=== PATIENT | female | born 1940 | race Caucasian/White ===

== ENCOUNTER 2020-01-10 10:16 | Outpatient (CLI) | payer MEDICARE, SELFPAY ==
[2020-01-10 10:30] LABS: Basophils Absolute Auto 0.02 K/mm3 (0.00-0.10); Basophils Percent Auto 0.5 % (0.0-1.0); Eosinophils Absolute Auto 0.16 K/mm3 (0.02-0.50); Hematocrit 38.7 % (35.0-42.0); Hemoglobin 12.8 g/dL (11.7-13.8); Immature Granulocyte Absolute 0.01 K/mm3 (0.00-0.00); Immature Granulocyte Percent A 0.3 % (0.0-0.0); Lymphocytes Absolute Auto 1.36 K/mm3 (1.10-4.50); Lymphocytes Percent Auto 34.3 % (18.0-42.0); Mean Corpuscular HGB Conc 33.1 g/dL (32.0-36.0); Mean Corpuscular Hemoglobin 32.4 pg (27.0-31.0); Mean Platelet Volume 10.5 fl (9.2-11.8); Monocytes Absolute Auto 0.29 K/mm3 (0.10-0.90); Monocytes Percent Auto 7.3 % (2.0-11.0); Neutrophils Absolute Auto 2.1 K/mm3 (1.7-7.2); Neutrophils Percent Auto 53.6 % (50.0-70.0); Platelet Count Result 102 K/mm3 (150-420); Red Blood Count 3.95 M/mm3 (4.20-5.40); Red Cell Distribution Width 13.2 % (11.6-14.4)
[2020-01-10 10:42] LABS: Creatinine Urine 44.82 mg/dL (40-278)
[2020-01-10 10:48] LABS: INR 1.1; Prothrombin Time 11.5 Seconds (9.64-11.0)
[2020-01-10 10:50] LABS: Appearance Urine Clear (Clear); Color Urine Yellow (Yellow); Protein Urine Negative (Negative)
[2020-01-10 10:51] LABS: Add Urine Microscopic? NO; Bilirubin Urine Negative (Negative); Blood Urine Negative (Negative); Glucose Urine UA Negative (Negative); Ketones Urine Negative (Negative); Leukocyte Esterase Ur Negative (Negative); MALB Creatinine Ratio 2.9 mg/g (0-30); Microalbumin Urine Random < 1.3 mg/L; Nitrate Urine Negative (Negative); Urobilinogen Urine 0.2 mg/dL (0.2-1.0)
[2020-01-10 10:52] LABS: Hemoglobin A1C 5.9 % (<5.7)
[2020-01-10 11:34] LABS: Anion Gap 10.3 mmol/L (7-16); Blood Urea Nitrogen 12 mg/dL (7-18); Carbon Dioxide 31 mmol/L (21-32); Chloride 105 mmol/L (98-108); Estimated Glomerular Filt Rate 57; Glucose 92 mg/dL (70-99); Osmolality Calculated 293 mOsm/kg (285-295); Potassium 4.3 mmol/L (3.5-5.1); Sodium 142 mmol/L (136-145)
[2020-01-10 11:35] LABS: Alanine Aminotransferase 29 U/L (14-59); Albumin Level 3.3 g/dL (3.4-5.0); Aspartate Amino Transferase 37 U/L (15-37); CRP < 0.2 mg/dL (0.0-0.9); Calcium 8.8 mg/dL (8.5-10.1); Creatine Kinase 37 U/L (26-192); Total Protein 6.8 g/dL (6.4-8.2)
[2020-01-10 11:36] LABS: Alkaline Phosphatase 79 U/L (46-116)
[2020-01-10 11:51] LABS: Erythrocyte Sedimentation Rate 38 mm/hr (0-20)
[2020-01-10 12:09] LABS: Cholesterol 179 mg/dL (0-200); HDL Direct 57 mg/dL (40-60); LDL Cholesterol Calculated 96 mg/dL (<130); Triglycerides 130 mg/dL (0-150)
== END 2020-01-10 10:17 | disposition home or self-care (01) ==
PROVIDERS: PCP Internal Medicine; Visit Provider Internal Medicine
DX: E78.2 Mixed hyperlipidemia (principal); E11.9 Type 2 diabetes mellitus without complications; I10 Essential (primary) hypertension; K74.5 Biliary cirrhosis, unspecified; M35.3 Polymyalgia rheumatica
CPT/HCPCS: 36415; 80053; 80061; 81003; 82043; 82550; 83036; 85025; 85610; 85652; 86140

== ENCOUNTER 2020-04-06 12:40 | Outpatient (CLI) | payer MEDICARE, SELFPAY ==
--- NOTE | ~2020-04-06 | MR_ITS ---
EXAMINATION: MR abdomen wo/w con INDICATION: Liver cirrhosis TECHNIQUE: Coronal SSFSE ARC, WATER:coronal LAVA-FLEX, Coronal 2D FIESTA FatSat, Axial SSFSE BH ARC, Axial 3D DualEcho BH, Axial SSFSE-IR, Axial DWI b=500, Axial 2D FIESTA FatSat, pre and dynamic postco ntrast Axial LAVA ARC, postcontrast Coronal In and Opposed phase LAVA FLEX COMPARISON: 02/10/2016 CONTRAST: Multihance, 17 cc FINDINGS: The liver surface is nodular. There are innumerable regenerative nodules throughout the keturah er. No suspicious liver mass is identified. The spleen, pancreas, and adrenal glands are normal. The gallbladder is surgically absent. The kidneys are unremarkable. Is chronic mild periportal lymphadeno martín is likely reactive. There are no dilated loops of bowel. No ascites is present. IMPRESSION: 1. Cirrhosis. Reviewed, dictated and finalized at location A. IMPRESSION: 1. Cirrhosis.
[2020-04-06 13:26] LABS: Estimated Glomerular Filt Rate 60
== END 2020-04-06 12:41 | disposition home or self-care (01) ==
PROVIDERS: PCP Internal Medicine; Visit Provider Internal Medicine
DX: K74.60 Unspecified cirrhosis of liver (principal)
CPT/HCPCS: 74183; A9577

== ENCOUNTER 2020-06-17 16:24 | Outpatient (CLI) | payer MEDICARE, SELFPAY ==
--- NOTE | ~2020-06-17 | XR_ITS ---
EXAMINATION: XR lumbar spine 2-3V EXAM DATE: 06/17/2020 16:55 INDICATION: Lower back pain, h/o hepatocellular cancer. TECHNIQUE: Lumber spine frontal, lateral, lateral L5-S1 projections for interpretation. Comparison is made to prior examination from 05/16/2016. Correlation was made with CT abdomen pelvis 02/19/2018. FINDINGS: Moderate to severe loss of the L5-S1 disc height, moderate at L4-5 and mild to moderate at the other lumbar levels. Moderate lumbar facet arthropathy. Mild aortic arterial sclerosis. Upper ab dominal surgical clips. Sacrum, sacroiliac joints, sacral arcuate lines are intact. The vertebral bod ies are aligned in the AP dimension. There are no osteoblastic or osteolytic lesions identified. IMPRESSION: 1. Moderate to severe lumbar spondylosis. Reviewed, dictated and finalized at location A. STMENT BANKING MANAGER
--- NOTE | ~2020-06-17 | XR_ITS ---
EXAMINATION: XR hip RT min 2V EXAM DATE: 06/17/2020 16:55 INDICATION: Right hip pain. History of hepatocellular cancer. TECHNIQUE: Right hip frontal, 'frog leg' projections for interpretation. Correlation is made to pelvi c x-ray 10/22/2008. FINDINGS: Smooth right hip femoral head contour, no radiographic evidence of avascular necrosis. The re is moderate right hip primary osteoarthritis. Some pelvic or inguinal surgical clips. There are no acute fractures or dislocations identified. There is no subcutaneous gas. The soft tissue is unrem arkable. IMPRESSION: Moderate right hip osteoarthritis. Reviewed, dictated and finalized at location A. IC SEPARATOR OPERATOR
== END 2020-06-17 16:25 | disposition home or self-care (01) ==
LOC: CHSLAB 16:26
PROVIDERS: PCP Internal Medicine; Visit Provider Internal Medicine
DX: M54.5 Low back pain (principal); M25.551 Pain in right hip
CPT/HCPCS: 72100; 73502

== ENCOUNTER 2020-06-24 08:24 | Outpatient (CLI) | payer MEDICARE, SELFPAY ==
--- NOTE | ~2020-06-24 | MR_ITS ---
EXAMINATION: MR lumbar spine wo con EXAM DATE: 06/24/2020 10:12 INDICATION: Pain in R hip and lower back . TECHNIQUE: Multi-sequential, multiplanar MR images of the lumbar spine were obtained without contrast . Sagittal T1, T2, T2 fat saturation images. Axial T2 weighted images. Comparison is made to prior examination from 10/21/2015. FINDINGS: There is moderate disc disease L4-S1, mild to moderate at L2-L4. There is 5 mm retrolisthes is L5 on S1. The vertebral bodies are otherwise aligned. The conus medullaris terminates at the L1/2 level and has normal signal intensity and morphology. Mild acute or subacute compression fracture in ferior endplate of L2. Paraspinal soft tissue is unremarkable. Level by level evaluation: T12-L1: Disc does not extend beyond the endplate margin. Facet arthropathy: Mild. Neural foraminal stenosis: No stenosis. Central canal stenosis: No stenosis. L1-L2: There is a mild diffuse disc bulge. Facet arthropathy: Mild. Neural foraminal stenosis: No stenosis. Central canal stenosis: No stenosis. L2-L3: There is a mild to moderate diffuse disc bulge. Facet arthropathy: Mild to moderate. Neural foraminal stenosis: No stenosis. Central canal stenosis: Mild to moderate. L3-L4: There is a mild to moderate diffuse disc bulge. Facet arthropathy: Mild to moderate. Neural foraminal stenosis: Mild left. Central canal stenosis: Mild to moderate. L4-L5: There is a mild to moderate diffuse disc bulge. Facet arthropathy: Moderate. Neural foraminal stenosis: Mild to moderate left, mild right. Central canal stenosis: Moderate. L5-S1: There is a mild to moderate diffuse disc bulge. Facet arthropathy: Moderate. Neural foraminal stenosis: Moderate left, mild to moderate right. Central canal stenosis: Moderate. L2 compression fracture is new compared to prior study. There has been mild overall interval progress ion in spondylosis. IMPRESSION: 1. Moderate lower lumbar spondylosis. 2. Acute or subacute L2 mild compression fracture. Reviewed, dictated and finalized at location B. CTOR PRODUCT SAFETY
--- NOTE | ~2020-06-24 | MR_ITS ---
EXAMINATION: MR hip RT wo con DATE: 06/24/2020 10:11 INDICATION: Right hip pain. TECHNIQUE: Magnetic resonance imaging (MRI) of the right hip was performed without intravenous contra st. Sequences included axial and coronal PD-weighted FS FSE and axial T1-weighted FSE of the pelvis. Sequences of the hip included 2D FIESTA, T1-weighted fast GRE, and axial, coronal, and sagittal PD-we ighted FS FSE. COMPARISON: Right hip radiographs 06/17/2020 FINDINGS: Bones/cartilage: There is thoracolumbar levocurvature. There is severe lower lumbar spondylosis. No fracture. There is mild osteoarthritis of the hips. Labrum: There is a tear of the right acetabular labrum. Fluid: There is no hip joint effusion. There is mild right-sided trochanteric bursitis. Soft tissues: There is mild tendinopathy of the hamstring origins. The iliopsoas tendons are normal. The gluteus me dius and gluteus minimus tendons are normal bilaterally. There is mild focal edema of right adductor brevis and adductor longus muscles. IMPRESSION: 1. Mild osteoarthritis of the hips. 2. Mild focal edema of right adductor brevis and adductor longus muscles, consistent with mild strain s (grade 1). Reviewed, dictated and finalized at location A. ILE PRODUCTS PROCESSOR IMPRESSION: 1. Mild osteoarthritis of the hips. 2. Mild focal edema of right adductor brevis and adductor longus muscles, consi stent with mild strains (grade 1).
== END 2020-06-24 08:25 | disposition home or self-care (01) ==
LOC: CHSIMG 08:26
PROVIDERS: PCP Internal Medicine; Visit Provider Internal Medicine
DX: M54.5 Low back pain (principal); M25.551 Pain in right hip
CPT/HCPCS: 72148; 73721

== ENCOUNTER 2020-08-03 09:55 | Outpatient (CLI) | payer MEDICARE, SELFPAY ==
[2020-08-03 10:11] LABS: Hematocrit 37.8 % (35.0-42.0); Hemoglobin 12.6 g/dL (11.7-13.8); Mean Corpuscular HGB Conc 33.3 g/dL (32.0-36.0); Mean Corpuscular Hemoglobin 32.8 pg (27.0-31.0); Mean Corpuscular Volume 98.4 fL (78.0-102.0); Mean Platelet Volume 11.2 fl (9.2-11.8); Platelet Count Result 102 K/mm3 (150-420); Red Blood Count 3.84 M/mm3 (4.20-5.40); Red Cell Distribution Width 13.3 % (11.6-14.4); White Blood Count 3.6 K/mm3 (4.8-10.8)
[2020-08-03 10:12] LABS: Appearance Urine Sl Cloudy (Clear); Bilirubin Urine Negative (Negative); Color Urine Yellow (Yellow); Glucose Urine UA Negative (Negative); Ketones Urine Negative (Negative); Leukocyte Esterase Ur 2+ (Negative); Nitrate Urine Negative (Negative); Protein Urine Negative (Negative); Specific Grav Ur >= 1.030 (1.010-1.020); Urobilinogen Urine 0.2 mg/dL (0.2-1.0); pH Urine 5.5 (5.0-8.0)
[2020-08-03 10:21] LABS: Alanine Aminotransferase 22 U/L (14-59); Albumin Level 3.4 g/dL (3.4-5.0); Alkaline Phosphatase 84 U/L (46-116); Ammonia 17 umol/L (11-32); Anion Gap 6 mmol/L (8-16); Aspartate Amino Transferase 26 U/L (15-37); Bilirubin,Total 0.7 mg/dL (0.00-1.00); Blood Urea Nitrogen 13 mg/dL (7-18); CRP < 0.5 mg/dL (0.0-0.9); Calcium 9.1 mg/dL (8.5-10.1); Carbon Dioxide 32 mmol/L (21-32); Chloride 105 mmol/L (98-108); Cholesterol 169 mg/dL (0-200); Creatine Kinase 37 U/L (26-192); Estimated Glomerular Filt Rate 58; Glucose 100 mg/dL (70-99); HDL Direct 53 mg/dL (40-60); LDL Cholesterol Calculated 86 mg/dL (<130); Osmolality Calculated 296 mOsm/kg (285-295); Potassium 4.8 mmol/L (3.5-5.1); Sodium 143 mmol/L (136-145); Total Protein 7.2 g/dL (6.4-8.2); Triglycerides 152 mg/dL (0-150)
[2020-08-03 10:25] LABS: Hemoglobin A1C 5.3 % (<5.7)
[2020-08-03 10:34] LABS: INR 1.1; Partial Thromboplastin Time 27.9 SEC (23.90-30.70); Prothrombin Time 11.5 Seconds (9.50-12.10)
[2020-08-03 10:59] LABS: Add Urine Microscopic? YES; Blood Urine Trace-Intact (Negative)
[2020-08-03 11:00] LABS: Bacteria Urine 2+ /hpf; RBC Urine 0-2 /hpf (0-2); Squamous Epithelial Cell Urine Rare /hpf (Few); WBC Urine 31-50 /hpf (0-3)
[2020-08-03 11:12] LABS: Erythrocyte Sedimentation Rate 37 mm/hr (0-20)
[2020-08-03 11:23] LABS: Band Neutrophils Percent 0 % (0-6); Eosinophils Absolute Manual 0.18 K/mm3 (0.02-0.5); Eosinophils Percent Manual 5 % (1-6); Lymphocytes Percent Manual 28 % (18-44); Monocytes Absolute Manual 0.25 K/mm3 (0.1-0.90); Monocytes Percent Manual 7 % (3-9); Neutrophils Absolute Manual 2.16 K/mm3 (1.7-7.2); Neutrophils Percent Manual 60 % (46-73); Total Cells Counted 100
[2020-08-07 17:12] LABS: Alpha Fetoprotein Tumor Marker 3.4 ng/mL (<6.1)
== END 2020-08-03 09:56 | disposition home or self-care (01) ==
LOC: CHSLAB 09:57
PROVIDERS: PCP Internal Medicine; Visit Provider Internal Medicine
DX: C22.0 Liver cell carcinoma (principal); E78.2 Mixed hyperlipidemia; I10 Essential (primary) hypertension; K74.5 Biliary cirrhosis, unspecified; E11.9 Type 2 diabetes mellitus without complications
CPT/HCPCS: 36415; 80053; 80061; 81001; 82105; 82140; 82550; 83036; 85025; 85610; 85652; 85730; 86140

== ENCOUNTER 2020-11-16 10:09 | Outpatient (CLI) | payer MEDICARE, SELFPAY ==
[2020-11-16 10:32] LABS: Hematocrit 36.9 % (35.0-42.0); Hemoglobin 12.1 g/dL (11.7-13.8); Immature Platelet Fraction Pct 4.3 % (1.0-7.0); Mean Corpuscular HGB Conc 32.8 g/dL (32.0-36.0); Mean Corpuscular Hemoglobin 31.8 pg (27.0-31.0); Mean Corpuscular Volume 96.9 fL (78.0-102.0); Mean Platelet Volume 11.4 fl (9.2-11.8); Platelet Count Result 85 K/mm3 (150-420); Red Blood Count 3.81 M/mm3 (4.20-5.40); Red Cell Distribution Width 13.4 % (11.6-14.4); White Blood Count 3.6 K/mm3 (4.8-10.8)
[2020-11-16 11:10] LABS: Hemoglobin A1C 5.9 % (<5.7)
[2020-11-16 11:23] LABS: Alanine Aminotransferase 28 U/L (14-59); Albumin Level 3.2 g/dL (3.4-5.0); Alkaline Phosphatase 86 U/L (46-116); Anion Gap 5 mmol/L (8-16); Aspartate Amino Transferase 30 U/L (15-37); Bilirubin,Total 0.8 mg/dL (0.00-1.00); Blood Urea Nitrogen 17 mg/dL (7-18); Carbon Dioxide 32 mmol/L (21-32); Chloride 104 mmol/L (98-108); Estimated Glomerular Filt Rate 56; Glucose 97 mg/dL (70-99); Osmolality Calculated 293 mOsm/kg (285-295); Potassium 4.9 mmol/L (3.5-5.1); Sodium 141 mmol/L (136-145); Total Protein 6.7 g/dL (6.4-8.2)
[2020-11-16 14:06] LABS: Band Neutrophils Percent 0 % (0-6); Eosinophils Absolute Manual 0.03 K/mm3 (0.02-0.5); Eosinophils Percent Manual 1 % (1-6); Lymphocytes Absolute Manual 0.97 K/mm3 (1.1-4.5); Lymphocytes Percent Manual 27 % (18-44); Monocytes Absolute Manual 0.39 K/mm3 (0.1-0.90); Monocytes Percent Manual 11 % (3-9); Neutrophils Absolute Manual 2.19 K/mm3 (1.7-7.2); Neutrophils Percent Manual 61 % (46-73); Total Cells Counted 100
[2020-11-16 14:07] LABS: Platelet Estimate Adequate (Adequate)
== END 2020-11-16 10:10 | disposition home or self-care (01) ==
LOC: CHSLAB 10:11
PROVIDERS: PCP Internal Medicine; Visit Provider Internal Medicine
DX: E11.9 Type 2 diabetes mellitus without complications (principal); C22.0 Liver cell carcinoma
CPT/HCPCS: 36415; 80053; 83036; 85025; 85055

== ENCOUNTER 2021-01-11 13:52 | Outpatient (CLI) | payer MEDICARE, SELFPAY ==
--- NOTE | ~2021-01-11 | MM_ITS ---
EXAMINATION: MM screening ayush BI w hilton HISTORY: Screening mammogram TECHNIQUE: Craniocaudal and mediolateral oblique 3-D tomosynthesis images were obtained and synthetic 2-D images were generated. CAD analysis was submitted and interpreted. COMPARISON: 05/16/2016, 11/08/2012 BREAST PARENCHYMAL COMPOSITION: The breasts are almost entirely fatty. FINDINGS: Scattered benign-appearing calcifications are present. There is no evidence of suspicious m ass, calcification, or architectural distortion to suggest malignancy in either breast. There has bee n no suspicious interval change. IMPRESSION: 1. No mammographic evidence of malignancy. 2. Recommend routine screening mammography while the patient remains in good health. BI-RADS Category 2: Benign finding(s). Reviewed, dictated and finalized at location A. IMPRESSION: 1. No mammographic evidence of malignancy. 2. Recommend routine screening mammography while the patient remains in good he alth. BI-RADS Category 2: Benign finding(s).
== END 2021-01-11 13:53 | disposition home or self-care (01) ==
LOC: CHSIMG 13:54
PROVIDERS: PCP Internal Medicine; Visit Provider Internal Medicine
DX: Z12.31 Encounter for screening mammogram for malignant neoplasm of breast (principal)
CPT/HCPCS: 77063; 77067

== ENCOUNTER 2021-02-08 13:56 | Outpatient (CLI) | payer MEDICARE, SELFPAY ==
--- NOTE | ~2021-02-08 | XR_ITS ---
EXAMINATION: XR foot LT min 3V, XR foot RT min 3V DATE: 02/08/2021 14:23 INDICATION: Bilateral foot pain and swelling TECHNIQUE: 1. Weight bearing dorsal plantar, oblique and lateral views of the left foot were obtained. 2. Weight bearing dorsal plantar, oblique and lateral views of the right foot were obtained. COMPARISON: None. FINDINGS: Bilateral pes planus with flattening of the longitudinal arches at both feet. There are also hammerto e deformities at the left third and right second and third toes. No fractures. Polyarticular osteoart hritis, moderate to severe at the right first metatarsophalangeal and bilateral naviculocuneiform mandie nts. Mild osteoarthritis at several of the bilateral tarsometatarsal and interphalangeal joints. Prom inent bilateral Achilles and plantar calcaneal spurs. There is a thin wire-like density measuring marcin roximately 4-5 mm in length which on the dorsal plantar view of the left foot projects over the dista l diaphysis of the third metatarsal and which moves laterally on the oblique view which be consistent with location in the plantar soft tissues. No correlate is however identified in this region on the lateral image suggesting this may be an artifact external to the patient. IMPRESSION: 1. Bilateral pes planus with flattening of the longitudinal arches. 2. Moderate to severe osteoarthritis at the right first metatarsophalangeal and at the bilateral jeevan culocuneiform articulations. 3. Thin wire-like density project over the forefoot on the dorsal plantar and oblique images without evident correlate on the lateral image suggesting this may be artifactual as opposed to a foreign bod y. Reviewed, dictated and finalized at location A. IMPRESSION: 1. Bilateral pes planus with flattening of the longitudinal arches. 2. Moderate to severe osteoarthritis at the right first metatarsophalangeal and at the bilateral naviculocuneiform articulations. 3. Thin wire-like density project over the forefoot on the dorsal plantar and o blique images without evident correlate on the lateral image suggesting this ma y be artifactual as opposed to a foreign body.
== END 2021-02-08 13:57 | disposition home or self-care (01) ==
LOC: CHSIMG 13:58
PROVIDERS: PCP Internal Medicine; Visit Provider Podiatrist
DX: M79.672 Pain in left foot (principal); M79.671 Pain in right foot; M79.89 Other specified soft tissue disorders
CPT/HCPCS: 73630

== ENCOUNTER 2021-02-15 10:47 | Outpatient (CLI) | payer MEDICARE, SELFPAY ==
[2021-02-15 11:15] LABS: Basophils Absolute Auto 0.02 K/mm3 (0.00-0.10); Basophils Percent Auto 0.5 % (0.0-1.0); Eosinophils Absolute Auto 0.08 K/mm3 (0.02-0.50); Hematocrit 38.9 % (35.0-42.0); Hemoglobin 12.7 g/dL (11.7-13.8); Immature Granulocyte Absolute 0.01 K/mm3 (0.00-0.00); Immature Granulocyte Percent A 0.3 % (0.0-0.0); Lymphocytes Absolute Auto 0.98 K/mm3 (1.10-4.50); Lymphocytes Percent Auto 24.6 % (18.0-42.0); Mean Corpuscular HGB Conc 32.6 g/dL (32.0-36.0); Mean Corpuscular Hemoglobin 31.7 pg (27.0-31.0); Mean Platelet Volume 11.1 fl (9.2-11.8); Monocytes Absolute Auto 0.38 K/mm3 (0.10-0.90); Monocytes Percent Auto 9.5 % (2.0-11.0); Neutrophils Absolute Auto 2.5 K/mm3 (1.7-7.2); Neutrophils Percent Auto 63.1 % (50.0-70.0); Platelet Count Result 93 K/mm3 (150-420); Red Blood Count 4.01 M/mm3 (4.20-5.40); Red Cell Distribution Width 13.8 % (11.6-14.4)
[2021-02-15 11:20] LABS: Add Urine Microscopic? YES; Appearance Urine Clear (Clear); Bilirubin Urine Negative (Negative); Blood Urine Negative (Negative); Color Urine Light Yellow (Yellow); Glucose Urine UA Negative (Negative); Ketones Urine Negative (Negative); Leukocyte Esterase Ur Trace (Negative); Nitrate Urine Negative (Negative); Protein Urine Negative (Negative); Urobilinogen Urine 0.2 mg/dL (0.2-1.0); pH Urine 5.5 (5.0-8.0)
[2021-02-15 11:25] LABS: Bacteria Urine Trace /hpf; RBC Urine 0-2 /hpf (0-2); Squamous Epithelial Cell Urine Few /hpf (Few)
[2021-02-15 11:59] LABS: Alanine Aminotransferase 29 U/L (14-59); Albumin Level 3.5 g/dL (3.4-5.0); Alkaline Phosphatase 84 U/L (46-116); Anion Gap 8 mmol/L (8-16); Aspartate Amino Transferase 33 U/L (15-37); Bilirubin,Total 0.8 mg/dL (0.00-1.00); Blood Urea Nitrogen 15 mg/dL (7-18); Calcium 8.8 mg/dL (8.5-10.1); Carbon Dioxide 30 mmol/L (21-32); Chloride 106 mmol/L (98-108); Cholesterol 179 mg/dL (0-200); Estimated Glomerular Filt Rate 56; Glucose 88 mg/dL (70-99); HDL Direct 58 mg/dL (40-60); LDL Cholesterol Calculated 100 mg/dL (<130); Osmolality Calculated 297 mOsm/kg (285-295); Potassium 4.3 mmol/L (3.5-5.1); Sodium 144 mmol/L (136-145); Total Protein 7.2 g/dL (6.4-8.2); Triglycerides 104 mg/dL (0-150)
[2021-02-15 12:19] LABS: CRP < 0.2 mg/dL (0.0-0.9)
[2021-02-15 13:05] LABS: Erythrocyte Sedimentation Rate 29 mm/hr (0-20)
[2021-02-17 14:21] LABS: Hemoglobin A1C 5.8 % (<5.7)
== END 2021-02-15 10:48 | disposition home or self-care (01) ==
LOC: CHSLAB 10:49
PROVIDERS: PCP Internal Medicine; Visit Provider Internal Medicine
DX: K74.5 Biliary cirrhosis, unspecified (principal); I10 Essential (primary) hypertension; E11.9 Type 2 diabetes mellitus without complications; E78.2 Mixed hyperlipidemia; C22.0 Liver cell carcinoma; M35.3 Polymyalgia rheumatica
CPT/HCPCS: 36415; 80053; 80061; 81001; 82105; 83036; 85025; 85652; 86140

== ENCOUNTER 2021-03-31 12:03 | Outpatient (CLI) | payer MEDICARE, SELFPAY ==
--- NOTE | ~2021-03-31 | XR_ITS ---
XR chest 2V DATE: 03/31/2021 12:40 INDICATION: Midsternal chest pain for one month TECHNIQUE: 2 views COMPARISON: 06/27/2017 PA and lateral chest FINDINGS: Normal heart size. Aortic arch calcification and mild aortic unfolding. No hilar or mediast inal enlargement. No pulmonary infiltrate or consolidation, pleural effusion or pulmonary vascular congestion or pneumo thorax. Diffuse osteopenia. There is degenerative spurring in the lower thoracic spine primarily. Numerous surgical clips overlie the left upper quadrant of the abdomen. IMPRESSION: No active cardiopulmonary disease or significant change since 06/27/2017 Reviewed, dictated and finalized at location B.
--- NOTE | ~2021-03-31 | US_ITS ---
EXAMINATION: US carotid duplex BI EXAM DATE: 03/31/2021 12:34 INDICATION: Carotid bruit. TECHNIQUE: Grayscale, color and pulsed Doppler images of the cervical carotid arteries were obtained . The degree of vessel stenosis is placed in one of the following categories: normal, <50% stenosis, 50-69% stenosis, >=70% stenosis but less than near-occlusion, near-occlusion, or occlusion. Note that percent stenosis relative to normal distal artery lumen diameter is indirectly measured from velocit y measurements as described by Sascha, et al. Radiology 2003; [id number]:[id number]. Comparison is made to prior examination from 06/28/2017. FINDINGS: RIGHT SIDE: Right common carotid artery peak systolic velocity (PSV in cm/s): 87 Right bulb/internal carotid artery peak systolic velocity (PSV in cm/s): 85 Right internal carotid artery end diastolic velocity (EDV in cm/s): 14 Right ICA/CCA peak systolic ratio: 1.0 Right external carotid artery peak systolic velocity (PSV in cm/s): 87 Right vertebral artery antegrade flow: yes There is minimal carotid bulb plaque. Velocity and Doppler waveforms in the common and internal carotid arteries is normal. LEFT SIDE: Left common carotid artery peak systolic velocity (PSV in cm/s): 95 Left bulb/internal carotid artery peak systolic velocity (PSV in cm/s): 103 Left internal carotid artery end diastolic velocity (EDV in cm/s): 24 Left ICA/CCA peak systolic ratio: 1.1 Left external carotid artery peak systolic velocity (PSV in cm/s): 78 Left vertebral artery antegrade flow: yes There is minimal carotid bulb plaque. Velocity and Doppler waveforms in the common and internal carotid arteries is normal. IMPRESSION: 1. Less than 50 percent stenosis in the right internal carotid artery. 2. Less than 50 percent stenosis in the left internal carotid artery. > Reviewed, dictated and finalized at location A.
== END 2021-03-31 12:04 | disposition home or self-care (01) ==
LOC: CHSIMG 12:05
PROVIDERS: PCP Internal Medicine; Visit Provider Internal Medicine
DX: R07.9 Chest pain, unspecified (principal); R09.89 Other specified symptoms and signs involving the circulatory and respiratory systems
CPT/HCPCS: 71046; 93880

== ENCOUNTER 2021-04-07 08:47 | Outpatient (CLI) | payer MEDICARE, SELFPAY ==
--- NOTE | ~2021-04-07 | MR_ITS ---
EXAMINATION: MR abdomen wo con DATE: 04/07/2021 11:42 INDICATION: Biliary cirrhosis. TECHNIQUE: Magnetic resonance imaging (MRI) of the abdomen was performed without intravenous contrast . Sequences included coronal T2-weighted SS-FSE, coronal FS 2D-FIESTA, axial T2-weighted FS SS-FSE, axial T1-weighted FSPGR, axial diffusion-weighted SE, and axial and coronal WATER 3D LAVA. COMPARISON: 04/06/2020 FINDINGS: Heart size is normal. No pericardial or pleural effusion. Postoperative changes at the proximal stoma ch consistent with prior Subhash fundoplication Diffuse heterogeneous signal intensity of the liver wh ich demonstrates a diffuse nodular surface contour consistent with cirrhosis. Borderline splenomegaly measuring 13.2 cm in maximal length. Gallbladder is not visualized and likely surgically absent. Cho lecystectomy clips with magnetic santana artifact at the gallbladder fossa. Pancreas, bilateral adrena l glands and kidneys are normal. Visualized portions of the bowels are unremarkable. No pathologicall y enlarged abdominal lymphadenopathy. No ascites. Mild thoracolumbar levocurvature and lumbar dextroc urvature with moderate spondylosis. Normal bone marrow signal throughout. IMPRESSION: 1. Cirrhotic liver with borderline splenomegaly suggesting some degree of secondary portal venous hyp ertension. Reviewed, dictated and finalized at location B. IMPRESSION: 1. Cirrhotic liver with borderline splenomegaly suggesting some degree of secon amadou portal venous hypertension.
== END 2021-04-07 08:48 | disposition home or self-care (01) ==
LOC: CHSIMG 08:48
PROVIDERS: PCP Internal Medicine; Visit Provider Internal Medicine
DX: K74.5 Biliary cirrhosis, unspecified (principal)
CPT/HCPCS: 74181

== ENCOUNTER 2021-05-24 10:29 | Outpatient (CLI) | payer MEDICARE, SELFPAY ==
[2021-05-24 10:47] LABS: Basophils Absolute Auto 0.02 K/mm3 (0.00-0.10); Basophils Percent Auto 0.5 % (0.0-1.0); Eosinophils Absolute Auto 0.07 K/mm3 (0.02-0.50); Eosinophils Percent Auto 1.7 % (1.0-6.0); Hematocrit 39.3 % (35.0-42.0); Hemoglobin 12.5 g/dL (11.7-13.8); Immature Granulocyte Absolute 0.01 K/mm3 (0.00-0.00); Immature Granulocyte Percent A 0.2 % (0.0-0.0); Immature Platelet Fraction Pct 4.2 % (1.0-7.0); Lymphocytes Absolute Auto 0.99 K/mm3 (1.10-4.50); Lymphocytes Percent Auto 23.6 % (18.0-42.0); Mean Corpuscular HGB Conc 31.8 g/dL (32.0-36.0); Mean Corpuscular Hemoglobin 30.9 pg (27.0-31.0); Mean Platelet Volume 11.3 fl (9.2-11.8); Monocytes Absolute Auto 0.43 K/mm3 (0.10-0.90); Monocytes Percent Auto 10.2 % (2.0-11.0); Neutrophils Absolute Auto 2.7 K/mm3 (1.7-7.2); Neutrophils Percent Auto 63.8 % (50.0-70.0); Platelet Count Result 99 K/mm3 (150-420); Red Blood Count 4.05 M/mm3 (4.20-5.40); Red Cell Distribution Width 13.9 % (11.6-14.4); White Blood Count 4.2 K/mm3 (4.8-10.8)
[2021-05-24 11:27] LABS: Alanine Aminotransferase 29 U/L (14-59); Albumin Level 3.3 g/dL (3.4-5.0); Alkaline Phosphatase 95 U/L (46-116); Anion Gap 8 mmol/L (8-16); Aspartate Amino Transferase 36 U/L (15-37); Bilirubin,Total 0.7 mg/dL (0.00-1.00); Blood Urea Nitrogen 13 mg/dL (7-18); Calcium 8.7 mg/dL (8.5-10.1); Carbon Dioxide 30 mmol/L (21-32); Chloride 105 mmol/L (98-108); Estimated Glomerular Filt Rate > 60; Glucose 105 mg/dL (70-99); Osmolality Calculated 296 mOsm/kg (285-295); Potassium 4.4 mmol/L (3.5-5.1); Sodium 143 mmol/L (136-145); Total Protein 6.9 g/dL (6.4-8.2)
[2021-05-29 00:07] LABS: Alpha Fetoprotein Tumor Marker 2.6 ng/mL (<6.1)
== END 2021-05-24 10:30 | disposition home or self-care (01) ==
LOC: CHSLAB 10:32
PROVIDERS: PCP Internal Medicine; Visit Provider Internal Medicine
DX: E11.610 Type 2 diabetes mellitus with diabetic neuropathic arthropathy (principal); K74.5 Biliary cirrhosis, unspecified; K74.60 Unspecified cirrhosis of liver
CPT/HCPCS: 36415; 80053; 82105; 83036; 85025; 85055

== ENCOUNTER 2021-08-26 09:59 | Outpatient (CLI) | payer MEDICARE, SELFPAY ==
[2021-08-26 10:11] LABS: Appearance Urine Clear (Clear); Bilirubin Urine Negative (Negative); Color Urine Light Yellow (Yellow); Glucose Urine UA Negative (Negative); Ketones Urine Negative (Negative); Leukocyte Esterase Ur Negative (Negative); Nitrate Urine Negative (Negative); Protein Urine Negative (Negative); Urobilinogen Urine 0.2 mg/dL (0.2-1.0); pH Urine 7.5 (5.0-8.0)
[2021-08-26 10:13] LABS: Basophils Absolute Auto 0.02 K/mm3 (0.00-0.10); Basophils Percent Auto 0.5 % (0.0-1.0); Eosinophils Absolute Auto 0.04 K/mm3 (0.02-0.50); Eosinophils Percent Auto 0.9 % (1.0-6.0); Hematocrit 37.9 % (35.0-42.0); Hemoglobin 12.5 g/dL (11.7-13.8); Immature Granulocyte Absolute 0.02 K/mm3 (0.00-0.00); Immature Granulocyte Percent A 0.5 % (0.0-0.0); Immature Platelet Fraction Pct 3.9 % (1.0-7.0); Lymphocytes Absolute Auto 1.01 K/mm3 (1.10-4.50); Lymphocytes Percent Auto 22.9 % (18.0-42.0); Mean Corpuscular Hemoglobin 30.7 pg (27.0-31.0); Mean Corpuscular Volume 93.1 fL (78.0-102.0); Mean Platelet Volume 11.3 fl (9.2-11.8); Monocytes Absolute Auto 0.38 K/mm3 (0.10-0.90); Monocytes Percent Auto 8.6 % (2.0-11.0); Neutrophils Absolute Auto 2.9 K/mm3 (1.7-7.2); Neutrophils Percent Auto 66.6 % (50.0-70.0); Platelet Count Result 104 K/mm3 (150-420); Red Blood Count 4.07 M/mm3 (4.20-5.40); Red Cell Distribution Width 14.2 % (11.6-14.4); White Blood Count 4.4 K/mm3 (4.8-10.8)
[2021-08-26 10:16] LABS: Add Urine Microscopic? YES; Bacteria Urine None seen /hpf; Blood Urine Trace-Intact (Negative); RBC Urine None seen /hpf (0-2); WBC Urine None seen /hpf (0-3)
[2021-08-26 10:20] LABS: MALB Creatinine Ratio 74.7 mg/g (0-30); Microalbumin Urine Random < 13.0 mg/L
[2021-08-26 11:01] LABS: Alanine Aminotransferase 23 U/L (14-59); Albumin Level 3.5 g/dL (3.4-5.0); Alkaline Phosphatase 89 U/L (46-116); Anion Gap 9 mmol/L (8-16); Aspartate Amino Transferase 28 U/L (15-37); Bilirubin,Total 1.2 mg/dL (0.00-1.00); Blood Urea Nitrogen 12 mg/dL (7-18); Calcium 9.1 mg/dL (8.5-10.1); Carbon Dioxide 29 mmol/L (21-32); Chloride 104 mmol/L (98-108); Cholesterol 181 mg/dL (0-200); Creatine Kinase 44 U/L (26-192); Estimated Glomerular Filt Rate 59; Free T4 Free Thyroxine 1.19 ng/dL (0.76-1.46); Glucose 90 mg/dL (70-99); HDL Direct 64 mg/dL (40-60); LDL Cholesterol Calculated 100 mg/dL (<130); Osmolality Calculated 293 mOsm/kg (285-295); Potassium 4.3 mmol/L (3.5-5.1); Sodium 142 mmol/L (136-145); Thyroid Stimulating Hormone 1.54 uIU/mL (0.36-3.74); Total Protein 7.1 g/dL (6.4-8.2); Triglycerides 83 mg/dL (0-150)
[2021-08-26 11:12] LABS: CRP < 0.2 mg/dL (0.0-0.9)
[2021-08-26 11:18] LABS: Erythrocyte Sedimentation Rate 36 mm/hr (0-20)
[2021-09-01 18:12] LABS: Alpha Fetoprotein Tumor Marker 3.2 ng/mL (<6.1)
== END 2021-08-26 10:00 | disposition home or self-care (01) ==
LOC: CHSLAB 10:01
PROVIDERS: PCP Internal Medicine; Visit Provider Internal Medicine
DX: C22.0 Liver cell carcinoma (principal); K74.5 Biliary cirrhosis, unspecified; E79.0 Hyperuricemia without signs of inflammatory arthritis and tophaceous disease; E78.2 Mixed hyperlipidemia; E03.4 Atrophy of thyroid (acquired); M35.3 Polymyalgia rheumatica; E11.610 Type 2 diabetes mellitus with diabetic neuropathic arthropathy
CPT/HCPCS: 36415; 80053; 80061; 81001; 82043; 82105; 82550; 83036; 84439; 84443; 84481; 84550; 85025; 85055; 85652; 86140

== ENCOUNTER 2021-11-06 10:50 | Outpatient (CLI) | payer MEDICARE, SELFPAY ==
--- NOTE | ~2021-11-06 | MR_ITS ---
EXAMINATION: MR knee RT wo con DATE: 11/06/2021 12:25 INDICATION: Right knee pain TECHNIQUE: Magnetic resonance imaging (MRI) of the right knee was performed without intravenous contr ast. Sequences included coronal PD-weighted FSE, coronal PD-weighted FS FSE, sagittal T2-weighted FS E, sagittal PD-weighted FS FSE and axial PD weighted fat saturated FSE. COMPARISON: None. FINDINGS: Medial compartment: The medial meniscal body and posterior horn are small which is new since the prior study. There is li near increased signal consistent with complex tear at the remaining small meniscal body. There is ext ensive full/near full-thickness cartilage loss along the anterior to central weightbearing medial fem oral condyle and medial tibial plateau. There is still some thinned cartilage along the posterior mar gin of the medial tibial plateau and at the posterior weightbearing medial femoral condyle. Moderate size marginal osteophytes are present. Lateral compartment: Longitudinal horizontal tear extending to near the free edge of the body and posterior horn of the la teral meniscus. There is truncation of the normally sharp free edge at the posterior horn of the late ral meniscus with equivocal for small radial tear versus degenerative fraying. Mild partial-thickness cartilage loss with deep chondral fissuring along the anterior weightbearing lateral femoral condyle . Mild chondral surface regularity along the more posterior weightbearing lateral femoral condyle. Sm all marginal osteophytes are present. Patellofemoral compartment: Full/near full-thickness chondral ulceration throughout the lateral patellar facet and along the jurado llar apical ridge with small focus of subarticular cystlike change along the inferolateral margin of the lateral patellar facet. Additional extensive full/oh full-thickness chondral ulceration with mild cortical irregularity and mild edema-like subarticular signal changes at the lateral two thirds of t he lateral trochlea. A severe partial thickness cartilage loss with deep fissuring at the trochlear g roove and medial trochlea and at the medial patellar facet. Small marginal osteophytes are present. Ligaments and tendons: Posterior cruciate ligament is normal. The anterior cruciate ligament demonstrates a normal angle rel ative to Blumensaat line. Demonstrates diffuse increased intrasubstance signal surrounding intact marcin earing linear fibers with a celery stalk appearance. Small enthesophytes at the distal aspect of t he otherwise normal distal quadriceps tendon and otherwise normal patellar tendon. The medial collate ral ligament and fibular collateral ligament complex are normal. The extensor mechanism is normal. Th e visualized medial and lateral hamstring tendons as well as the iliotibial band are normal. Fluid: Small right knee joint effusion. No loose osteochondral bodies identified. Osseous/other: Bone alignment is normal. No fracture or pathologic marrow replacing process. IMPRESSION: 1. Complex tear at the small body of the medial meniscus with the small body and posterior horn witho ut history of prior partial mastectomy suggesting this represents sequela of chronic degenerative tea ring. 2. Small longitudinal horizontal tear of the body and posterior horn of the lateral meniscus. 3. Tricompartmental osteoarthritis, severe in the medial and patellofemoral compartments and mild in the lateral compartment. 4. Likely mucoid degeneration without definitive tear of the anterior cruciate ligament. Reviewed, dictated and finalized at location A. IMPRESSION: 1. Complex tear at the small body of the medial meniscus with the small body an d posterior horn without history of prior partial mastectomy suggesting this re presents
--- NOTE | ~2021-11-06 | MR_ITS ---
EXAMINATION: MR knee LT wo con DATE: 11/06/2021 12:24 INDICATION: Bilateral knee pain TECHNIQUE: Magnetic resonance imaging (MRI) of the left knee was performed without intravenous contra st. Sequences included axial PD-weighted FS FSE, coronal PD-weighted FSE and PD-weighted FS FSE, sagi ttal PD-weighted FSE, and sagittal T2-weighted FS FSE. COMPARISON: None. FINDINGS: Medial compartment: Mild diffuse cartilage thinning. Mild osteophytosis. Intact medial meniscus. Lateral compartment: Mild cartilage thinning and osteophytosis. Degenerative fraying of the lateral meniscus, without disc rete tear. Patellofemoral compartment: Severe diffuse patellofemoral cartilage loss. Mild osteophytosis. Retinacula and extensor mechanism a re intact. Ligaments and tendons: ACL, PCL, MCL, and LCL are intact. Fluid: Moderate volume joint fluid. Osseous/other: Marrow signal is benign and homogenous. IMPRESSION: 1. Severe chondromalacia patellae. 2. Mild osteoarthritic changes in the medial and lateral compartments. 3. Moderate left knee joint effusion. Reviewed, dictated and finalized at location K.
== END 2021-11-06 10:51 | disposition home or self-care (01) ==
LOC: CHSIMG 10:51
PROVIDERS: PCP Internal Medicine; Visit Provider Internal Medicine
DX: M25.562 Pain in left knee (principal); M25.561 Pain in right knee
CPT/HCPCS: 73721

== ENCOUNTER 2022-03-09 10:23 | Outpatient (CLI) | payer MEDICARE, SELFPAY ==
[2022-03-09 10:43] LABS: Add Urine Microscopic? NO; Appearance Urine Clear (Clear); Bilirubin Urine Negative (Negative); Blood Urine Negative (Negative); Color Urine Yellow (Yellow); Glucose Urine UA Negative (Negative); Ketones Urine Negative (Negative); Leukocyte Esterase Ur Negative (Negative); Nitrate Urine Negative (Negative); Protein Urine Negative (Negative)
[2022-03-09 10:45] LABS: Hematocrit 34.5 % (35.0-42.0); Hemoglobin 10.7 g/dL (11.7-13.8); Immature Platelet Fraction Pct 3.6 % (1.0-7.0); Mean Corpuscular Hemoglobin 27.8 pg (27.0-31.0); Mean Corpuscular Volume 89.6 fL (78.0-102.0); Mean Platelet Volume 11.8 fl (9.2-11.8); Platelet Count Result 87 K/mm3 (150-420); Red Blood Count 3.85 M/mm3 (4.20-5.40); Red Cell Distribution Width 16.6 % (11.6-14.4); White Blood Count 2.8 K/mm3 (4.8-10.8)
[2022-03-09 10:52] LABS: Hemoglobin A1C 6.2 % (<5.7)
[2022-03-09 10:55] LABS: Creatinine Urine 83.27 mg/dL (40-278); MALB Creatinine Ratio 15.6 mg/g (0-30); Microalbumin Urine Random < 13.0 mg/L
[2022-03-09 11:09] LABS: Band Neutrophils Percent 0 % (0-6); Lymphocytes Absolute Manual 0.64 K/mm3 (1.1-4.5); Lymphocytes Percent Manual 23 % (18-44); Monocytes Absolute Manual 0.19 K/mm3 (0.1-0.90); Monocytes Percent Manual 7 % (3-9); Neutrophils Absolute Manual 1.96 K/mm3 (1.7-7.2); Neutrophils Percent Manual 70 % (46-73); Platelet Estimate Decreased (Adequate); Total Cells Counted 100
[2022-03-09 11:37] LABS: Alanine Aminotransferase 22 U/L (14-59); Albumin Level 3.4 g/dL (3.4-5.0); Alkaline Phosphatase 93 U/L (46-116); Ammonia 20 umol/L (11-32); Anion Gap 10 mmol/L (8-16); Aspartate Amino Transferase 31 U/L (15-37); Bilirubin,Total 0.9 mg/dL (0.00-1.00); Blood Urea Nitrogen 15 mg/dL (7-18); Carbon Dioxide 28 mmol/L (21-32); Chloride 104 mmol/L (98-108); Cholesterol 162 mg/dL (0-200); Creatine Kinase 43 U/L (26-192); Estimated Glomerular Filt Rate 59; Free T3 2.95 pg/mL (2.18-3.98); Free T4 Free Thyroxine 1.14 ng/dL (0.76-1.46); Glucose 84 mg/dL (70-99); HDL Direct 59 mg/dL (40-60); LDL Cholesterol Calculated 84 mg/dL (<130); Osmolality Calculated 293 mOsm/kg (285-295); Potassium 3.6 mmol/L (3.5-5.1); Sodium 142 mmol/L (136-145); Thyroid Stimulating Hormone 2.91 uIU/mL (0.36-3.74); Total Protein 7.4 g/dL (6.4-8.2); Triglycerides 93 mg/dL (0-150); Vitamin B12 1118 pg/mL (193-986)
[2022-03-09 13:31] LABS: Immature Reticulocyte Fraction 13.1 % (2.0-16.52); Reticulocyte Hemoglobin Conten 33.3 pg (28.0-35.0); Reticulocyte Percent 1.38 % (0.50-1.50); Reticulocytes Absolute 0.05 M/mm3 (0.02-0.1)
[2022-03-09 14:05] LABS: Ferritin 22 ng/mL (8-252); Iron 64 ug/dL (50-170)
[2022-03-13 20:55] LABS: Vitamin D 25 Hydroxy 32 ng/mL (30-100)
[2022-03-14 18:18] LABS: Alpha Fetoprotein Tumor Marker 2.7 ng/mL (<6.1)
== END 2022-03-09 10:24 | disposition home or self-care (01) ==
PROVIDERS: PCP Internal Medicine; Visit Provider Internal Medicine
DX: M35.3 Polymyalgia rheumatica (principal); E11.9 Type 2 diabetes mellitus without complications; I10 Essential (primary) hypertension; E79.0 Hyperuricemia without signs of inflammatory arthritis and tophaceous disease; M81.0 Age-related osteoporosis without current pathological fracture; R53.82 Chronic fatigue, unspecified; K74.5 Biliary cirrhosis, unspecified; D50.9 Iron deficiency anemia, unspecified; E78.2 Mixed hyperlipidemia
CPT/HCPCS: 36415; 80053; 80061; 81003; 82043; 82105; 82140; 82306; 82550; 82607; 82728; 83036; 83540; 84439; 84443; 84481; 85025; 85046; 85055

== ENCOUNTER 2022-04-24 15:20 | Emergency (ER) | payer MEDICARE, SELFPAY ==
[2022-04-24] VITALS (8 sets, daily range): BP systolic 139–185; BP diastolic 57–83; PULSE 59–77; RESP 16–20; TEMP 36.5–36.6; O2SAT 98–100
--- NOTE | ~2022-04-24 | XR_ITS ---
EXAMINATION: XR chest 1V portable INDICATION: Chest pain TECHNIQUE: Portable AP chest at 1549 hours COMPARISON: 03/31/2021 FINDINGS: The lungs are free of acute opacities. No pleural effusion or pneumothorax. The cardiomedia stinal silhouette is normal. Surgical clips are noted in the left upper quadrant. IMPRESSION: 1. No acute cardiopulmonary abnormality. Reviewed, dictated and finalized at location F.
--- NOTE | ~2022-04-24 | CT_ITS ---
EXAMINATION: CTA chest PE protocol DATE: 04/24/2022 17:52 INDICATION: Shortness of breath TECHNIQUE: Computed tomography angiography (CTA) of the chest was performed with 100 mL Omnipaque-350 intravenous contrast timed to evaluate the pulmonary arteries. Coronal maximum intensity projection 3D-reconstructions were created by the technologist. The dose-length product (DLP) was 372.73 mGy-cm. Automated exposure control and iterative reconstruction technique were employed. COMPARISON: None. FINDINGS: The pulmonary arteries are well-opacified. No pulmonary embolism is identified. Cardiomegal y is noted. There is mild dependent atelectasis. Calcified pulmonary nodules are consistent with old granulomatous disease. There are no pathologically enlarged thoracic lymph nodes. There is nodularity of the liver surface. There is mild circumferential wall thickening of the distal esophagus. The gal lbladder is surgically absent. There are multiple surgical clips in the left upper quadrant. IMPRESSION: 1. No pulmonary embolism or acute cardiopulmonary abnormality. 2. Cardiomegaly. 3. Cirrhosis. 4. Mild circumferential wall thickening of the distal esophagus, possible esophagitis. Reviewed, dictated and finalized at location F. IMPRESSION: 1. No pulmonary embolism or acute cardiopulmonary abnormality. 2. Cardiomegaly. 3. Cirrhosis. 4. Mild circumferential wall thickening of the distal esophagus, possible esoph agitis.
--- NOTE | 2022-04-24 15:30 | ECG_ITS ---
Measurements Intervals [place] Rate: 69 P: 78 AR: 158 QRS: -5 QRSD: 89 T: -2 QT: 400 QTc: 430 Interpretive Statements SINUS RHYTHM NO PREVIOUS ECG AVAILABLE FOR COMPARISON Electronically Signed On 04-24-2022 19:52:57 CDT by Nina Jeronimo M.D.
--- NOTE | 2022-04-24 15:40 | ED.CHESTPAIN ---
HPI - Chest Pain General Chief Complaint: Chest Pain Stated Complaint: chest pains Time Seen by Provider: 04/24/22 15:21 Source: patient and family Mode of arrival: ambulatory Limitations: no limitations History of Present Illness HPI narrative: PATIENT IS 82-YEAR-OLD WHITE FEMALE COMPLAINS OF RETROSTERNAL CHEST PAIN RADIATING TO HER BACK 8/10 ON AND OFF FOR THE PAST 1 WEEK BETTER AT NIGHTTIME WORSE WHEN SHE BENDS OVER AND ALSO HURTS WHEN SHE TAKES A DEEP BREATH DENIES ANY COUGH SHORTNESS OF BREATH FEVER NAUSEA VOMITING DIZZINESS TRAUMA PROBLEMS EATING OR DRINKING VOIDING OR STOOLING WALKING OR TALKING SHE HAS NOT TAKING ANYTHING FOR PAIN FOR HER CHEST ALTHOUGH SHE IS ON HYDROCODONE 4 TIMES A DAY FOR CHRONIC KNEE AND BACK PAIN. SHE HAS NOT NOTICED A DIFFERENCE OR CHANGE WITH THE HYDROCODONE. DENIES ANY HISTORY OF VENOUS THROMBOEMBOLISM HEART DISEASE OR LUNG DISEASE. SHE SAID SHE CALLED HER PRIMARY CARE DOCTOR A WEEK AGO HE TOLD HER TO GO TO THE EMERGENCY ROOM THEN. FINALLY HER DAUGHTER CONVINCED HER TO COME TO THE EMERGENCY ROOM FOR EVALUATION THE PAIN WAS GETTING WORSE. SHE CURRENTLY IS NOT HAVING ANY PAIN RIGHT THIS INSTANT. PAST MEDICAL HISTORY: HYPERTENSION DIABETES TYPE 2 LIVER CANCER SHE IS ON ALLOPURINOL SHE DOES NOT THINK IT IS FOR GOUT. IS A HISTORY OF HEMORRHOIDS AND HAS CHRONIC BLEEDING PAST SURGICAL HISTORY : APPENDECTOMY HYSTERECTOMY CHOLECYSTECTOMY GASTROPLASTY TEMPORAL ARTERY SURGERY MD complaint: chest pain Quality: tightness Relieving factors: nothing Exacerbating factors: exertion and movement Risk Factors Coronary artery disease risk factors: diabetes, hyperlipidemia and hypertension Related Data Home Medications Medication Instructions Recorded Confirmed allopurinol 100 mg tablet 100 mg PO .COMPLEX 11/06/19 04/24/22 hydrocodone 10 mg-acetaminophen 1 tablet PO QID PRN Pain 11/06/19 04/24/22 325 mg tablet pantoprazole 40 mg granules 40 mg PO DAILY 11/06/19 04/24/22 delayed-release for susp in packet propranolol 20 mg tablet 20 mg PO BID 11/06/19 04/24/22 glimepiride 4 mg tablet 4 mg PO DAILY 04/24/22 04/24/22 Allergies Allergy/AdvReac Type Severity Reaction Status Date / Time No Known Allergies Allergy Verified 04/24/22 15:41 Review of Systems Review of Systems: All systems reviewed & are unremarkable except as noted in HPI and below Constitutional: Constitutional: Reports no additional constitutional complaints Eyes: Eyes: Reports no additional eye complaints ENT: Reports system reviewed and no additional complaints, except as documented Cardiovascular: Cardiovascular: Reports no additional cardiovascular complaints, Reports chest pain, Denies rapid heart rate, Denies radiating jaw, neck or arm pain and Denies slow heart rate Respiratory: Respiratory: Reports no additional respiratory complaints, Denies chest congestion, Denies cough, Denies dyspnea and Denies wheezing Gastrointestinal: Gastrointestinal: Reports no additional gastrointestinal complaints Genitourinary: Genitourinary: Reports no additional female genitourinary complaints Musculoskeletal: Musculoskeletal: Reports no additional musculoskeletal complaints Comments: CHRONIC BACK AND KNEE PAIN ON HYDROCODONE FOR THIS Neurologic: Reports system reviewed and no additional complaints, except as documented PMFSH Past Medical History Medical History (Updated 04/24/22 @ 19:44 by Nigel Bhat MD) Anemia Arthritis Cancer Diabetes Elevated lipids Hypertension Surgical History Surgical History History of appendectomy Hx of hysterectomy, total Hx of tonsillectomy Family History Family History Father Brain tumor Mother Cerebrovascular accident Mother Cerebrovascular accident Social History Social History Smoking s
[2022-04-24] MEDS: ASPIRIN 81 MG CHEWABLE TABLET 324 MG PO (15:42)
[2022-04-24 17:09] LABS: Hematocrit 33.6 % (35.0-42.0); Hemoglobin 10.7 g/dL (11.7-13.8); Immature Platelet Fraction Pct 5.6 % (1.0-7.0); Mean Corpuscular HGB Conc 31.8 g/dL (32.0-36.0); Mean Corpuscular Hemoglobin 29.4 pg (27.0-31.0); Mean Corpuscular Volume 92.3 fL (78.0-102.0); Mean Platelet Volume 11.7 fl (9.2-11.8); Platelet Count Result 85 K/mm3 (150-420); Red Blood Count 3.64 M/mm3 (4.20-5.40); White Blood Count 2.7 K/mm3 (4.8-10.8)
[2022-04-24 17:17] LABS: INR 1.2; Partial Thromboplastin Time 28.3 SEC (23.90-30.70); Prothrombin Time 12.8 Seconds (9.50-12.10)
[2022-04-24 17:22] LABS: D Dimer 2.03 mg/L (0.19-0.50)
[2022-04-24 17:25] LABS: Alanine Aminotransferase 27 U/L (14-59); Albumin Level 3.4 g/dL (3.4-5.0); Alkaline Phosphatase 93 U/L (46-116); Anion Gap 6 mmol/L (8-16); Aspartate Amino Transferase 34 U/L (15-37); Bilirubin,Total 0.7 mg/dL (0.00-1.00); Blood Urea Nitrogen 17 mg/dL (7-18); Calcium 8.6 mg/dL (8.5-10.1); Carbon Dioxide 30 mmol/L (21-32); Chloride 103 mmol/L (98-108); Estimated CRCL calculation 41 ml/min; Estimated Glomerular Filt Rate 50; Glucose 134 mg/dL (70-99); Lipase 150 U/L (73-393); NT Pro B Type Natriuretic Pept 525 pg/mL (0-450); Osmolality Calculated 291 mOsm/kg (285-295); Potassium 3.8 mmol/L (3.5-5.1); Sodium 139 mmol/L (136-145); Total Protein 7.4 g/dL (6.4-8.2); Troponin I 7.5 ng/L (0.00-60.4)
[2022-04-24 18:11] LABS: Rouleaux 2+ (NORMAL)
[2022-04-24 18:12] LABS: Atypical Lymphocytes Present; Large Platelets Present; Platelet Estimate Decreased (Adequate); Schistocytes None Seen (NORMAL)
[2022-04-24 18:13] LABS: Band Neutrophils Percent 0 % (0-6); Basophils Absolute Manual 0.02 K/mm3 (0-0.1); Basophils Percent Manual 1 % (0-1); Eosinophils Absolute Manual 0.05 K/mm3 (0.02-0.5); Eosinophils Percent Manual 2 % (1-6); Lymphocytes Absolute Manual 0.78 K/mm3 (1.1-4.5); Lymphocytes Percent Manual 29 % (18-44); Monocytes Absolute Manual 0.02 K/mm3 (0.1-0.90); Monocytes Percent Manual 1 % (3-9); Neutrophils Percent Manual 67 % (46-73); Total Cells Counted 100
[2022-04-24 19:26] LABS: Troponin I 8.7 ng/L (0.00-60.4)
== END 2022-04-24 19:46 | disposition home or self-care (01) ==
PROVIDERS: Emergency Provider Emergency Medicine; PCP Internal Medicine
DX: R07.89 Other chest pain (principal); E11.9 Type 2 diabetes mellitus without complications; E78.5 Hyperlipidemia, unspecified; I10 Essential (primary) hypertension; Z87.891 Personal history of nicotine dependence
CPT/HCPCS: 36415; 71045; 71275; 80053; 83690; 83880; 84484; 85025; 85055; 85380; 85610; 85730; 93005; 99284; A9270; Q9967

== ENCOUNTER 2022-06-10 10:34 | Outpatient (CLI) | payer MEDICARE, SELFPAY ==
[2022-06-10 10:58] LABS: Add Urine Microscopic? NO; Appearance Urine Clear (Clear); Bilirubin Urine Negative (Negative); Blood Urine Negative (Negative); Color Urine Yellow (Yellow); Glucose Urine UA Negative (Negative); Hematocrit 35.3 % (35.0-42.0); Hemoglobin 10.8 g/dL (11.7-13.8); Immature Platelet Fraction Pct 5.4 % (1.0-7.0); Ketones Urine Negative (Negative); Leukocyte Esterase Ur Negative (Negative); Mean Corpuscular HGB Conc 30.6 g/dL (32.0-36.0); Mean Corpuscular Hemoglobin 28.1 pg (27.0-31.0); Mean Corpuscular Volume 91.9 fL (78.0-102.0); Mean Platelet Volume 11.8 fl (9.2-11.8); Nitrate Urine Negative (Negative); Platelet Count Result 94 K/mm3 (150-420); Protein Urine Negative (Negative); Red Blood Count 3.84 M/mm3 (4.20-5.40); Red Cell Distribution Width 15.6 % (11.6-14.4); White Blood Count 3.5 K/mm3 (4.8-10.8)
[2022-06-10 11:05] LABS: Creatinine Urine 99.32 mg/dL (40-278); Microalbumin Urine Random < 13.0 mg/L
[2022-06-10 11:35] LABS: Alanine Aminotransferase 23 U/L (14-59); Albumin Level 3.4 g/dL (3.4-5.0); Alkaline Phosphatase 102 U/L (46-116); Ammonia 14 umol/L (11-32); Anion Gap 6 mmol/L (8-16); Aspartate Amino Transferase 36 U/L (15-37); Bilirubin,Total 0.9 mg/dL (0.00-1.00); Blood Urea Nitrogen 19 mg/dL (7-18); Calcium 8.8 mg/dL (8.5-10.1); Carbon Dioxide 30 mmol/L (21-32); Chloride 107 mmol/L (98-108); Cholesterol 154 mg/dL (0-200); Creatine Kinase 40 U/L (26-192); Estimated Glomerular Filt Rate 51; Ferritin 23 ng/mL (8-252); Free T3 2.63 pg/mL (2.18-3.98); Free T4 Free Thyroxine 1.21 ng/dL (0.76-1.46); Glucose 85 mg/dL (70-99); HDL Direct 57 mg/dL (40-60); Iron 74 ug/dL (50-170); LDL Cholesterol Calculated 78 mg/dL (<130); Osmolality Calculated 297 mOsm/kg (285-295); Percent Iron Saturation 21 % (12-57); Potassium 4.2 mmol/L (3.5-5.1); Sodium 143 mmol/L (136-145); Thyroid Stimulating Hormone 2.77 uIU/mL (0.36-3.74); Total Protein 7.6 g/dL (6.4-8.2); Triglycerides 93 mg/dL (0-150)
[2022-06-10 11:59] LABS: Platelet Estimate Decreased (Adequate)
[2022-06-10 12:11] LABS: Hemoglobin A1C 5.7 % (<5.7)
[2022-06-16 18:58] LABS: Alpha Fetoprotein Tumor Marker 2.6 ng/mL (<6.1)
== END 2022-06-10 10:35 | disposition home or self-care (01) ==
LOC: CHSLAB 10:37
PROVIDERS: PCP Internal Medicine; Visit Provider Internal Medicine
DX: K74.5 Biliary cirrhosis, unspecified (principal); E11.9 Type 2 diabetes mellitus without complications; I10 Essential (primary) hypertension; E79.0 Hyperuricemia without signs of inflammatory arthritis and tophaceous disease; C22.0 Liver cell carcinoma; M35.3 Polymyalgia rheumatica; R53.82 Chronic fatigue, unspecified; D69.59 Other secondary thrombocytopenia; E78.2 Mixed hyperlipidemia
CPT/HCPCS: 36415; 80053; 80061; 81003; 82043; 82105; 82140; 82550; 82728; 83036; 83540; 83550; 84439; 84443; 84481; 85025; 85055

== ENCOUNTER 2022-06-18 09:17 | Outpatient (CLI) | payer MEDICARE, SELFPAY ==
--- NOTE | ~2022-06-18 | MR_ITS ---
EXAMINATION: MR abdomen wo con DATE: 06/18/2022 11:03 INDICATION: Liver cell carcinoma. Cirrhosis. TECHNIQUE: Magnetic resonance imaging (MRI) of the abdomen was performed without intravenous contrast . COMPARISON: Abdomen MRI 04/07/2021, 04/06/20, chest CT 04/24/2022 FINDINGS: The liver demonstrates surface nodularity, consistent with cirrhosis. There are changes of cholecyste ctomy. There is mild splenomegaly. The pancreas, adrenal glands, and kidneys are normal. There are no dilated loops of bowel. There are no pathologically enlarged lymph nodes. There is no free intraperi toneal fluid. There are surgical clips around the proximal stomach. IMPRESSION: 1. Cirrhosis of the liver with portal venous hypertension. 2. Sensitivity for malignancy is decreased by the lack of intravenous contrast. Reviewed, dictated and finalized at location A. E ECONOMIST
== END 2022-06-18 09:18 | disposition home or self-care (01) ==
LOC: CHSIMG 09:19
PROVIDERS: PCP Internal Medicine; Visit Provider Internal Medicine
DX: C22.0 Liver cell carcinoma (principal); K74.60 Unspecified cirrhosis of liver; K76.6 Portal hypertension
CPT/HCPCS: 74181

== ENCOUNTER 2022-07-12 01:21 | Day surgery (SDC) | payer MEDICARE, SELFPAY ==
[2022-06-30 12:47] VITALS: BMI 30.4
[2022-07-12 08:15] VITALS: BP 157/66; PULSE 71; RESP 18; TEMP 36.1; O2SAT 99
[2022-07-12 08:15] LABS: Glucose Point of Care 97 mg/dl (65-105)
[2022-07-12] MEDS: LACTATED RINGERS 1,000 ML 150 ML IV CONT (08:31)
--- NOTE | 2022-07-12 08:57 | PM.HPGS ---
History of Present Illness History of Present Illness Consent: Risks, benefits, and alternatives have been discussed and questions answered. Patient agrees to proceed with procedure. Chief complaint: esophagitis: hx of colon polyps Narrative: Khadra Crook is a 82 year old female Referred by Dr. Asher for colonoscopy and EGD. Patient has a history of cirrhosis of the liver. At 1 time felt to have liver carcinoma. Currently followed at the [facility] in [place]. Currently felt to be in remission. Patient was found to have a colon polyp in 2014 and referred for follow-up colonoscopy. Additionally several months ago went to the emergency room with acid regurgitation and heartburn. Her previous dose of pantoprazole was increased to40mg p.o. b.i.d.. She has subsequently had marked improvement of her esophagitis and heartburn. CT scan performed in the emergency room revealed thickening of the esophagus. Because of her prior history of cirrhosis EGD is recommended to rule out esophageal varices. Patient denies any dysphagia bleeding or weight loss. Family history is noncontributory. Review of Systems Review of Systems: Review of systems noncontributory. [facility] Past Medical History Medical History (Updated 07/12/22 @ 08:59 by Ben Jorge MD) Anemia Arthritis Cancer Diabetes Elevated lipids Hypertension Surgical History Surgical History History of appendectomy Hx of hysterectomy, total Hx of tonsillectomy Family History Family History Father Brain tumor Mother Cerebrovascular accident Mother Cerebrovascular accident Social History Social History Smoking status: Former smoker Tobacco type: cigarettes Substance use type: does not use Living arrangements: alone Spiritual care concerns: No Meds Home Medications and Allergies Home Medications Medication Instructions Recorded Confirmed Type allopurinol 100 mg tablet 100 mg PO .COMPLEX 11/06/19 07/12/22 History hydrocodone 10 mg-acetaminophen 1 tablet PO QID PRN Pain 11/06/19 07/12/22 History 325 mg tablet pantoprazole 40 mg granules 40 mg PO BID 11/06/19 07/12/22 History delayed-release for susp in packet propranolol 20 mg tablet 20 mg PO BID 11/06/19 07/12/22 History glimepiride 4 mg tablet 4 mg PO DAILY 04/24/22 07/12/22 History aspirin 81 mg tablet 81 mg PO DAILY 06/30/22 07/12/22 History Allergies Allergy/AdvReac Type Severity Reaction Status Date / Time No Known Allergies Allergy Verified 07/12/22 08:06 Vital Signs Vital Signs - 24 hr 07/12/22 08:15 Temperature 97 F L Pulse Rate 71 Respiratory Rate 18 Blood Pressure 157/66 H Pulse Oximetry 99 Oxygen Delivery Room Air Exam Narrative: Physical exam reveals patient to be alert. Vital signs stable. HEENT exam is unremarkable. Patient is anicteric. Lungs are clear to auscultation and percussion. Heart is without murmur or extra sounds. Abdomen bowel sounds are present soft nontender with no organomegaly. Digital external rectal exam is normal. Assessment and Plan Assessment and plan (1) GERD (gastroesophageal reflux disease): Code(s): K21.9 - Gastro-esophageal reflux disease without esophagitis Status: Acute Assessment and Plan: Patient with GE reflux disease. Appeared to have have exacerbation several months ago. Currently controlled with pantoprazole 40mg p.o. b.i.d.. Anti-reflux measures encouraged including elevating head of bed at night, no late snacks, bland foods and avoid caffeine. EGD requested will be performed. (2) History of colon polyps: Code(s): Z86.010 - Personal history of colonic polyps Status: Acute Assessment and Plan: Patient found to have colon polyps by previous colonoscopy 2014. Plan for
--- NOTE | 2022-07-12 09:04 | WPDANESEPPF ---
Anes - Initial Pre Proc Eval Procedure: Operation Date: 07/12/22 09:30 Proposed Procedures p Esophagogastroduodenoscopy & Screening Colonoscopy - Ben Jorge MD Date/Time: 07/12/22 09:04 Surgeon: Ben Jorge MD Pre Op Diagnosis: esophagitis: hx of colon polyps Patient Data Age: 82 Gender: F Height: 1.73 m Weight: 84.2 kg Last Vital Signs Temp 97 F L 07/12/22 08:15 Pulse 71 07/12/22 08:15 Resp 18 07/12/22 08:15 BP 157/66 H 07/12/22 08:15 Pulse Ox 99 07/12/22 08:15 O2 Del Method Room Air 07/12/22 08:15 Allergies Allergy/AdvReac Type Severity Reaction Status Date / Time No Known Allergies Allergy Verified 07/12/22 08:06 Home Medications Medication Instructions Recorded Confirmed Type allopurinol 100 mg tablet 100 mg PO .COMPLEX 11/06/19 07/12/22 History hydrocodone 10 mg-acetaminophen 1 tablet PO QID PRN Pain 11/06/19 07/12/22 History 325 mg tablet pantoprazole 40 mg granules 40 mg PO BID 11/06/19 07/12/22 History delayed-release for susp in packet propranolol 20 mg tablet 20 mg PO BID 11/06/19 07/12/22 History glimepiride 4 mg tablet 4 mg PO DAILY 04/24/22 07/12/22 History aspirin 81 mg tablet 81 mg PO DAILY 06/30/22 07/12/22 History Laboratory Tests 07/12/22 08:12 POC Capillary Glucose 97 mg/dl mg/dl (65-105) Patient hx anesthesia problems: none Family hx anesthesia problems: none Results Review: All pre-operative results and documents have been reviewed as part of the pre-operative evaluation. [facility] Past Medical History Medical History (Updated 07/12/22 @ 08:59 by Ben Jorge MD) Anemia Arthritis Cancer Diabetes Elevated lipids Hypertension Surgical History Surgical History History of appendectomy Hx of hysterectomy, total Hx of tonsillectomy Family History Family History Father Brain tumor Mother Cerebrovascular accident Mother Cerebrovascular accident Social History Social History Smoking status: Former smoker Tobacco type: cigarettes Substance use type: does not use Living arrangements: alone Spiritual care concerns: No Anes - Eval Final PreProcedure Day of Procedure 07/12/22 09:04 Patient weight: obese Heart: regular rate and rhythm Lungs: clear to auscultation Airway: Mallampati scale class II Neurological: alert and oriented Last oral intake: >/= 8 hours ASA classification: III Emergent: no Anesthetic plan: proceed Anesthesia type and monitoring: general GIVS and standard monitoring Results Review: All pre-operative results and documents have been reviewed as part of the pre-operative evaluation. Informed Consent: The patient's anesthetic plan and its attendant risks and benefits were discussed with the patient/family/POA. Questions were solicited and answers provided to the satisfaction of the patient/family/POA.
--- NOTE | 2022-07-12 09:49 | SUR.OPER ---
EGD end 943 COLONOSCOPY START 950
[2022-07-12 10:16] VITALS: BP 131/52; PULSE 62; RESP 17; O2SAT 100
[2022-07-12 10:28] VITALS: BP 145/57; PULSE 68; RESP 19; O2SAT 100
[2022-07-12 10:38] VITALS: BP 141/58; PULSE 65; RESP 14; O2SAT 100
== END 2022-07-12 10:58 | disposition home or self-care (01) ==
PROVIDERS: PCP Internal Medicine; Visit Provider Internal Medicine Gastroenterology
PROC: 0DJ08ZZ Inspection of Upper Intestinal Tract, Via Natural or Artificial Opening Endoscopic (ICD-10-PCS; CPT 43235; principal; 2022-07-12 09:30)
DX: Z12.11 Encounter for screening for malignant neoplasm of colon (principal); D12.3 Benign neoplasm of transverse colon; K64.8 Other hemorrhoids; Q39.4 Esophageal web; K21.9 Gastro-esophageal reflux disease without esophagitis; K74.60 Unspecified cirrhosis of liver; Z98.84 Bariatric surgery status; E11.9 Type 2 diabetes mellitus without complications; I10 Essential (primary) hypertension; Z87.891 Personal history of nicotine dependence; E66.9 Obesity, unspecified; Z68.28 Body mass index [BMI] 28.0-28.9, adult; Z79.84 Long term (current) use of oral hypoglycemic drugs; Z79.82 Long term (current) use of aspirin; Z85.05 Personal history of malignant neoplasm of liver
CPT/HCPCS: 45385; 43239; 43249; 82948; 87081; 88305; C1726; J2704; J7120

== ENCOUNTER 2022-09-06 13:41 | Outpatient (CLI) | payer MEDICARE, SELFPAY ==
[2022-09-06 13:59] LABS: Hematocrit 35.3 % (35.0-42.0); Hemoglobin 11.3 g/dL (11.7-13.8); Immature Platelet Fraction Pct 6.3 % (1.0-7.0); Mean Corpuscular Hemoglobin 30.1 pg (27.0-31.0); Mean Corpuscular Volume 93.9 fL (78.0-102.0); Mean Platelet Volume 11.6 fl (9.2-11.8); Platelet Count Result 83 K/mm3 (150-420); Red Blood Count 3.76 M/mm3 (4.20-5.40); Red Cell Distribution Width 16.1 % (11.6-14.4); White Blood Count 3.1 K/mm3 (4.8-10.8)
[2022-09-06 14:43] LABS: Alanine Aminotransferase 28 U/L (14-59); Albumin Level 3.4 g/dL (3.4-5.0); Alkaline Phosphatase 106 U/L (46-116); Anion Gap 5 mmol/L (8-16); Aspartate Amino Transferase 38 U/L (15-37); Bilirubin,Total 0.8 mg/dL (0.00-1.00); Blood Urea Nitrogen 19 mg/dL (7-18); Calcium 7.9 mg/dL (8.5-10.1); Carbon Dioxide 32 mmol/L (21-32); Chloride 104 mmol/L (98-108); Estimated Glomerular Filt Rate 52; Glucose 115 mg/dL (70-99); Osmolality Calculated 295 mOsm/kg (285-295); Potassium 4.6 mmol/L (3.5-5.1); Sodium 141 mmol/L (136-145); Total Protein 7.5 g/dL (6.4-8.2)
[2022-09-06 14:58] LABS: Band Neutrophils Percent 0 % (0-6); Lymphocytes Absolute Manual 0.86 K/mm3 (1.1-4.5); Lymphocytes Percent Manual 28 % (18-44); Monocytes Absolute Manual 0.24 K/mm3 (0.1-0.90); Monocytes Percent Manual 8 % (3-9); Neutrophils Absolute Manual 1.95 K/mm3 (1.7-7.2); Neutrophils Percent Manual 63 % (46-73); Total Cells Counted 100
[2022-09-06 14:59] LABS: Basophils Absolute Manual 0.03 K/mm3 (0-0.1); Basophils Percent Manual 1 % (0-1); Eosinophils Percent Manual 0 % (1-6); Platelet Estimate Decreased (Adequate)
== END 2022-09-06 13:42 | disposition home or self-care (01) ==
LOC: CHSLAB 13:43
PROVIDERS: PCP Internal Medicine; Visit Provider Internal Medicine
DX: K74.5 Biliary cirrhosis, unspecified (principal)
CPT/HCPCS: 36415; 80053; 85025; 85055

== ENCOUNTER 2022-12-07 10:19 | Outpatient (CLI) | payer MEDICARE, SELFPAY ==
[2022-12-07 10:40] LABS: Appearance Urine Clear (Clear); Bilirubin Urine Negative (Negative); Blood Urine Negative (Negative); Color Urine Light Yellow (Yellow); Glucose Urine UA Negative (Negative); Ketones Urine Negative (Negative); Leukocyte Esterase Ur Negative LEU/UL (Negative); Nitrate Urine Negative (Negative); Protein Urine Negative (Negative); Specific Grav Ur <= 1.005 (1.010-1.020); pH Urine 6.5 (5.0-8.0)
[2022-12-07 10:41] LABS: Hematocrit 34.5 % (35.0-42.0); Hemoglobin 10.9 g/dL (11.7-13.8); Immature Platelet Fraction Pct 4.2 % (1.0-7.0); Mean Corpuscular HGB Conc 31.6 g/dL (32.0-36.0); Mean Corpuscular Hemoglobin 29.9 pg (27.0-31.0); Mean Corpuscular Volume 94.8 fL (78.0-102.0); Mean Platelet Volume 10.9 fl (9.2-11.8); Platelet Count Result 86 K/mm3 (150-420); Red Blood Count 3.64 M/mm3 (4.20-5.40); Red Cell Distribution Width 14.6 % (11.6-14.4); White Blood Count 3.2 K/mm3 (4.8-10.8)
[2022-12-07 10:44] LABS: Add Urine Microscopic? NO
[2022-12-07 10:55] LABS: Band Neutrophils Percent 0 % (0-6); Eosinophils Absolute Manual 0.09 K/mm3 (0.02-0.5); Eosinophils Percent Manual 3 % (1-6); Lymphocytes Percent Manual 19 % (18-44); Monocytes Absolute Manual 0.16 K/mm3 (0.1-0.90); Monocytes Percent Manual 5 % (3-9); Neutrophils Absolute Manual 2.33 K/mm3 (1.7-7.2); Neutrophils Percent Manual 73 % (46-73); Platelet Estimate Decreased (Adequate); Total Cells Counted 100
[2022-12-07 11:07] LABS: Alanine Aminotransferase 23 U/L (14-59); Albumin Level 3.3 g/dL (3.4-5.0); Anion Gap 6 mmol/L (8-16); Aspartate Amino Transferase 18 U/L (15-37); Blood Urea Nitrogen 15 mg/dL (7-18); Calcium 8.9 mg/dL (8.5-10.1); Carbon Dioxide 30 mmol/L (21-32); Chloride 106 mmol/L (98-108); Cholesterol 160 mg/dL (0-200); Creatine Kinase 48 U/L (26-192); Estimated Glomerular Filt Rate 58; Glucose 82 mg/dL (70-99); HDL Direct 63 mg/dL (40-60); Osmolality Calculated 293 mOsm/kg (285-295); Potassium 4.4 mmol/L (3.5-5.1); Sodium 142 mmol/L (136-145); Total Protein 7.1 g/dL (6.4-8.2); Triglycerides 75 mg/dL (0-150); Uric Acid 4.9 mg/dL (2.6-6.0)
[2022-12-07 11:08] LABS: Alkaline Phosphatase 106 U/L (46-116); LDL Cholesterol Calculated 82 mg/dL (<130)
== END 2022-12-07 10:20 | disposition home or self-care (01) ==
LOC: CHSLAB 10:22
PROVIDERS: PCP Internal Medicine; Visit Provider Internal Medicine
DX: E11.65 Type 2 diabetes mellitus with hyperglycemia (principal); I10 Essential (primary) hypertension; E78.2 Mixed hyperlipidemia; E79.0 Hyperuricemia without signs of inflammatory arthritis and tophaceous disease; N89.0 Mild vaginal dysplasia
CPT/HCPCS: 36415; 80053; 80061; 81003; 82550; 83036; 84550; 85025; 85055

== ENCOUNTER 2023-01-07 09:09 | Outpatient (CLI) | payer MEDICARE, SELFPAY ==
--- NOTE | ~2023-01-07 | MR_ITS ---
EXAMINATION: MR abdomen w con DATE: 01/07/2023 11:41 INDICATION: Cirrhosis. Liver cell carcinoma. TECHNIQUE: Magnetic resonance imaging (MRI) of the abdomen was performed with 18 mL MultiHance intrav enous contrast. COMPARISON: Abdomen MRI 06/18/2022, chest CT 04/24/2022 FINDINGS: There is liver surface nodularity, consistent with cirrhosis. Artifact obscures a portion of the live r. There is no evidence of malignancy. There is mild splenomegaly. The gallbladder is absent. The olmos creas, adrenal glands, and kidneys are normal. There are no dilated loops of bowel. There are no path ologically enlarged lymph nodes. There is no free intraperitoneal fluid. IMPRESSION: 1. Cirrhosis of the liver with portal venous hypertension. Reviewed, dictated and finalized at location A.
== END 2023-01-07 09:10 | disposition home or self-care (01) ==
LOC: CHSIMG 09:10
PROVIDERS: PCP Internal Medicine; Visit Provider Internal Medicine
DX: C22.8 Malignant neoplasm of liver, primary, unspecified as to type (principal); K74.60 Unspecified cirrhosis of liver; K76.6 Portal hypertension
CPT/HCPCS: 74182; A9577

== ENCOUNTER 2023-01-09 16:15 | Emergency (ER) | payer MEDICARE, SELFPAY ==
[2023-01-09 16:15] VITALS: BP 139/60; PULSE 67; RESP 18; TEMP 37.1; O2SAT 97
--- NOTE | 2023-01-09 16:33 | ED.EYEPROB ---
HPI - Eye Problem General Chief complaint: Eye Problems Stated complaint: eye issues Time Seen by Provider: 01/09/23 16:25 History of Present Illness HPI Narrative: 83-year-old female patient is here with complaints of redness to the left eye with some drainage and discomfort. She denies any injury. She states that she woke up yesterday morning with the the eye watering and is gotten worse since then. She does have some photophobia. She wears corrective lenses. Denies any upper respiratory tract infection. Related Data Home Medications Medication Instructions Recorded Confirmed allopurinol 100 mg tablet 100 mg PO .COMPLEX 11/06/19 01/09/23 hydrocodone 10 mg-acetaminophen 1 tablet PO QID PRN Pain 11/06/19 01/09/23 325 mg tablet pantoprazole 40 mg granules 40 mg PO BID 11/06/19 01/09/23 delayed-release for susp in packet propranolol 20 mg tablet 20 mg PO BID 11/06/19 01/09/23 glimepiride 4 mg tablet 4 mg PO DAILY 04/24/22 01/09/23 aspirin 81 mg tablet 81 mg PO DAILY 06/30/22 01/09/23 furosemide 20 mg tablet 20 mg PO QAM 01/09/23 01/09/23 pregabalin 50 mg capsule 50 mg PO BID 01/09/23 01/09/23 Allergies Allergy/AdvReac Type Severity Reaction Status Date / Time No Known Allergies Allergy Verified 01/09/23 15:48 Review of Systems Review of Systems: All systems reviewed & are unremarkable except as noted in HPI and below PMFSH Past Medical History Medical History (Updated 01/09/23 @ 16:47 by Cierra Peterson MD) Anemia Arthritis Cancer Diabetes Elevated lipids Hypertension Surgical History Surgical History History of appendectomy Hx of hysterectomy, total Hx of tonsillectomy Family History Family History Father Brain tumor Mother Cerebrovascular accident Mother Cerebrovascular accident Social History Social History Smoking status: Former smoker Tobacco type: cigarettes Substance use type: does not use Living arrangements: alone Spiritual care concerns: No Exam Narrative: Alert female patient appears in no acute distress. Vital signs are stable. HEENT: normocephalic. Normal facial appearance. No abnormalities noted. Left eye is injected and draining mucopurulent drainage. No obvious foreign bodies noted with there is some haziness around the cornea. A floor since stain confirms an corneal abrasion between 7 and 8 o'clock position. No hyphema is noted. Rest of HEENT is normal. No respiratory distress. Neurologic examination is grossly normal. Course Course Emergency Course: Patient and the family member aware of the coronal abrasion and the treatment plan. Will put the patient on antibiotic ophthalmic drops and she will follow-up with her primary care provider. Vital Signs Vital signs: Vital Signs Temperature 37.1 C 01/09/23 16:15 Pulse Rate 67 01/09/23 16:15 Respiratory Rate 18 01/09/23 16:15 Blood Pressure 139/60 01/09/23 16:15 Pulse Oximetry 97 01/09/23 16:15 Oxygen Delivery Room Air 01/09/23 16:15 Temperature 37.1 C 01/09/23 16:15 Pulse Rate 67 01/09/23 16:15 Respiratory Rate 18 01/09/23 16:15 Blood Pressure 139/60 01/09/23 16:15 Pulse Oximetry 97 01/09/23 16:15 Oxygen Delivery Room Air 01/09/23 16:15 MDM - Eye Problem Differential Diagnosis Differential diagnosis: Likely corneal abrasion, conjunctivitis, acute iritis, subconjunctival hemorrhage and corneal ulcer Discharge Plan Discharge Clinical Impression: Abrasion of cornea, left Patient Disposition: Home, Self-Care Condition: Stable Instructions: Antibiotic Form, Corneal Abrasion (ED) Additional Instructions: Avoid bright lights and eye strain Antibiotic eye drops as used Continue all routine medication Follow up with your PCP in 3-5 days oe as
[2023-01-09] MEDS: FLUORESCEIN SOD 1 MG/STRIP EACH EYE (16:34)
[2023-01-09] MEDS: TETRACAINE HCL 0.5% OPHTH SOLN 4 ML BTL 1 DROP EACH EYE (16:34)
== END 2023-01-09 16:55 | disposition home or self-care (01) ==
LOC: CHSED 17:00
PROVIDERS: Emergency Provider Emergency Medicine; PCP Internal Medicine
DX: S05.02XA Injury of conjunctiva and corneal abrasion without foreign body, left eye, initial encounter (principal); E11.9 Type 2 diabetes mellitus without complications; I10 Essential (primary) hypertension; Z79.891 Long term (current) use of opiate analgesic; Z79.82 Long term (current) use of aspirin; Z87.891 Personal history of nicotine dependence; X58.XXXA Exposure to other specified factors, initial encounter
CPT/HCPCS: 99283

== ENCOUNTER 2023-02-13 08:47 | Outpatient (CLI) | payer MEDICARE, SELFPAY ==
--- NOTE | 2023-02-13 08:56 | EST_ITS ---
Patient Info Name: Khadra Crook Age: 83 years : 1940 Gender: Female Ht: 70 in Wt: 242 lbs BSA: 2.37 m2 Technical Quality: Good Exam Date: 02/13/2023 9:58 AM Exam Location: [facility] Patient Status: Outpatient Admit Date: 02/13/2023 Staff Ordering Physician: Tigre Mckeon DO Attending Provider: Levar Patricia NMAA Exam Type: CA stress jacqueline w NM Study Info A regadenoson stress test was performed. History/Risk Factors Hypertension: Yes Diabetes Mellitus: Yes Tobacco Use: Former Summary 1. 1. Negative lexiscan stress test for ischemic ST changes by ECG criteria. 2. 2. Baseline hypertension. 3. 3. Nuclear scan to follow and will be reported separately. Please correlate with it. Protocol: LEXISCAN Stress ECG Details Stage: REST Duration (min): 2 min : 16 sec HR (bpm): 60 SBP (mmHg): 169 DBP (mmHg): 65 Stage: REST Duration (min): 6 min : 25 sec HR (bpm): 62 SBP (mmHg): 169 DBP (mmHg): 65 Stage: STAGE 1 Duration (min): 0 min : 24 sec HR (bpm): 61 SBP (mmHg): 169 DBP (mmHg): 65 Stage: RECOVERY Duration (min): 0 min : 35 sec HR (bpm): 70 SBP (mmHg): 169 DBP (mmHg): 65 Stage: RECOVERY Duration (min): 1 min : 35 sec HR (bpm): 80 SBP (mmHg): 169 DBP (mmHg): 65 Stage: RECOVERY Duration (min): 2 min : 35 sec HR (bpm): 76 SBP (mmHg): 143 DBP (mmHg): 56 Stage: RECOVERY Duration (min): 3 min : 35 sec HR (bpm): 74 SBP (mmHg): 143 DBP (mmHg): 56 Stage: RECOVERY Duration (min): 4 min : 35 sec HR (bpm): 71 SBP (mmHg): 138 DBP (mmHg): 55 Stage: RECOVERY Duration (min): 5 min : 35 sec HR (bpm): 70 SBP (mmHg): 141 DBP (mmHg): 59 Stage: RECOVERY Duration (min): 6 min : 16 sec HR (bpm): 72 SBP (mmHg): 141 DBP (mmHg): 59 Rest HR: 62 bpm Peak HR: 80 bpm Rest Sys BP: 169 mmHg Peak Sys BP: 143 mmHg Max Pred HR: 137 bpm % Max Pred HR: 58 % Target HR: 116 bpm Max RPP: 11,440 bpm*mmHg Termination Reason: Completed Protocol Cardiac Symptoms: None Total Time: 0 min : 24 sec Rest Palmer BP: 65 mmHg Peak Palmer BP: 56 mmHg Total Dose: 0.4 mg Resting ECG Normal sinus rhythm. Stress ECG No abnormal ST/T wave changes. Arrhythmias None. Report Signatures
--- NOTE | 2023-02-13 14:01 | WPDCARIOSTRE ---
Nuclear Stress Test INDICATIONS Indications: OLIVA PROCEDURE Procedure Performed: Myocardial Perf Spect-Multi Procedure: Patient underwent lexiscan stress test and immediately was injected with 26.6 mCi of cardiolyte. Multiple tomographic images were obtained. These are of good quality. There is evidence of small size, mild anterior perfusion defect with stress imaging. A separate resting images were obtained after patient was injected with 8.2 mCi of cardiolyte. Multiple tomographic images were obtained. These are of good quality. There is evidence of small size, mild anterior perfusion defect with rest imaging. CONCLUSION Conclusion: 1. Myocardial perfusion imaging demonstrating a fixed small size anterior perfusion defect suggestive of breast attenuation artifact. 2. No evidence of reversible ischemia. 3. Left ventriculogram demonstrates normal measured ejection fraction of 67% with no wall motion abnormalities. 4. TID score 0.99 is normal.
== END 2023-02-13 08:48 | disposition home or self-care (01) ==
LOC: CHSCARD 08:49
PROVIDERS: PCP Internal Medicine; Visit Provider Internal Medicine Cardiovascular Disease
DX: R07.9 Chest pain, unspecified (principal); R06.09 Other forms of dyspnea
CPT/HCPCS: 78452; 93017; A9502; J2785

== ENCOUNTER 2023-02-27 07:32 | Outpatient (CLI) | payer MEDICARE, SELFPAY ==
--- NOTE | ~2023-02-27 | US_ITS ---
Duplex Sonography of the left extremity: Indication: Swelling Findings: Sagittal and transverse B-mode images as well as color-flow imaging were performed on the l eft femoral and popliteal veins. B-mode examination was done without and with compression in the tra nsverse plane. There is good visualization of the common femoral, proximal profunda femoral, superfi cial femoral, greater saphenous, and popliteal veins. Normal flow was seen on color-flow imaging. No rmal compressibility was demonstrated. Visualized calf veins are also patent. Impression: No evidence of deep vein thrombosis involving the left lower extremity. Reviewed, dictated and finalized at location M. Impression: No evidence of deep vein thrombosis involving the left lower extremity.
--- NOTE | 2023-02-27 07:45 | ECHO_ITS ---
Patient Info Name: Khadra Crook Age: 83 years : 1940 Gender: Female Ht: 67 in Wt: 185 lbs BSA: 2.01 m2 HR: 64 bpm BP: 184 / 91 mmHg Heart Rhythm: Sinus Rhythm Technical Quality: Fair Exam Date: 02/27/2023 7:33 AM Exam Location: [facility] Patient Status: Outpatient Admit Date: 02/27/2023 Staff Ordering Physician: Tigre Mckeon DO Brick Baker: Conchita Call RDCS Attending Provider: Tigre Mckeon DO Referring Physician: Mike PATTON; Exam Type: CA echo doppler color flow Study Info Indications R06.09 - Other forms of dyspnea Complete two-dimensional, color flow and Doppler transthoracic echocardiogram is performed. History/Risk Factors Hypertension: Yes Diabetes Mellitus: Yes Tobacco Use: Former Summary 1. Complete two-dimensional, color flow and Doppler transthoracic echocardiogram is performed. 2. Left ventricular chamber dimension is normal. 3. Left ventricular systolic function is normal, estimated at 65-70%. 4. The left ventricular diastolic function is abnormal. 5. E/e' 17 is elevated. 6. Left atrial chamber dimension is severely enlarged. 7. There is moderate aortic valve sclerosis. 8. There is trace aortic valve regurgitation. 9. There is very mild aortic valve stenosis with a peak velocity of 179 cm/s, mean gradient of 6 mmHg, and aortic valve area of 2.0 cm2. 10. The mitral valve has severely calcified annulus. 11. There is moderate mitral valve regurgitation. 12. There is mild to moderate tricuspid valve regurgitation. 13. Mild pulmonary hypertension, estimated pulmonary arterial systolic pressure is 43 mmHg. 14. There is trace pulmonic regurgitation. Recommendations * Continue medical therapy for diabetes. Left Ventricle E/e' 17 is elevated. Left ventricular chamber dimension is normal. Left ventricular systolic function is normal, estimated at 65-70%. The left ventricular diastolic function is abnormal. Right Ventricle Right ventricular systolic function is normal and with normal TAPSE 3.3 cm. Right ventricular chamber dimension is normal. Left Atria Left atrial chamber dimension is severely enlarged. Right Atria Right atrial chamber dimension is normal. Aortic Valve There is very mild aortic valve stenosis with a peak velocity of 179 cm/s, mean gradient of 6 mmHg, and aortic valve area of 2.0 cm2. The aortic valve is trileaflet. There is moderate aortic valve sclerosis. There is trace aortic valve regurgitation. Pulmonic Valve There is trace pulmonic regurgitation. Mitral Valve The mitral valve has severely calcified annulus. There is no mitral valve stenosis. There is moderate mitral valve regurgitation. Tricuspid Valve There is mild to moderate tricuspid valve regurgitation. Mild pulmonary hypertension, estimated pulmonary arterial systolic pressure is 43 mmHg. Pericardium/Pleural There is no pericardial effusion. Inferior Vena Cava Normal inferior vena cava with >50% collapse upon inspiration consistent with normal right atrial pressure, 5 mmHg. Aorta The aortic root size at the sinus of Valsalva is normal. Left Ventricular Outflow Tract Name Value Normal LVOT 2D LVOT Diameter 2.0 cm LVOT Doppler LVOT Peak Velocity
--- NOTE | 2023-02-27 08:49 | ECG_ITS ---
Measurements Intervals [place] Rate: 67 P: 81 NE: 157 QRS: -5 QRSD: 94 T: 19 QT: 403 QTc: 428 Interpretive Statements SINUS RHYTHM NORMAL ECG COMPARED TO ECG 04/24/2022 15:30:35 NO SIGNIFICANT CHANGES Electronically Signed On 02-27-2023 12:08:12 CDT by Nigel Acosta M.D.
== END 2023-02-27 07:33 | disposition home or self-care (01) ==
LOC: CHSIMG 07:34
PROVIDERS: PCP Internal Medicine; Visit Provider Internal Medicine Cardiovascular Disease
DX: R06.09 Other forms of dyspnea (principal); I27.20 Pulmonary hypertension, unspecified; I07.1 Rheumatic tricuspid insufficiency; I34.0 Nonrheumatic mitral (valve) insufficiency; I34.81 Nonrheumatic mitral (valve) annulus calcification; I35.0 Nonrheumatic aortic (valve) stenosis; I35.1 Nonrheumatic aortic (valve) insufficiency; I35.8 Other nonrheumatic aortic valve disorders; I37.1 Nonrheumatic pulmonary valve insufficiency; R93.1 Abnormal findings on diagnostic imaging of heart and coronary circulation
CPT/HCPCS: 93005; 93306; 93971

== ENCOUNTER 2023-06-05 10:36 | Outpatient (CLI) | payer MEDICARE, SELFPAY ==
[2023-06-05 10:55] LABS: Hematocrit 35.6 % (35.0-42.0); Hemoglobin 11.4 g/dL (11.7-13.8); Immature Platelet Fraction Pct 5.4 % (1.0-7.0); Mean Corpuscular Volume 96.7 fL (78.0-102.0); Mean Platelet Volume 11.3 fl (9.2-11.8); Platelet Count Result 80 K/mm3 (150-420); Red Blood Count 3.68 M/mm3 (4.20-5.40); Red Cell Distribution Width 14.1 % (11.6-14.4); White Blood Count 2.9 K/mm3 (4.8-10.8)
[2023-06-05 10:56] LABS: Appearance Urine Slightly Cloudy (Clear); Bilirubin Urine 1+ (Negative); Blood Urine 1+ (Negative); Color Urine Yellow (Yellow); Glucose Urine UA Negative (Negative); Ketones Urine Trace (Negative); Leukocyte Esterase Ur 1+ (Negative); Nitrate Urine Negative (Negative); Protein Urine Negative (Negative); Specific Grav Ur >= 1.030 (1.010-1.020); pH Urine 5.5 (5.0-8.0)
[2023-06-05 11:08] LABS: Hemoglobin A1C 5.7 % (<5.7)
[2023-06-05 11:11] LABS: Add Urine Microscopic? YES; Bacteria Urine 2+ /hpf; Squamous Epithelial Cell Urine Moderate /hpf (Few)
[2023-06-05 11:22] LABS: Band Neutrophils Percent 0 % (0-6); Eosinophils Absolute Manual 0.05 K/mm3 (0.02-0.5); Eosinophils Percent Manual 2 % (1-6); Lymphocytes Absolute Manual 0.75 K/mm3 (1.1-4.5); Lymphocytes Percent Manual 26 % (18-44); Monocytes Absolute Manual 0.17 K/mm3 (0.1-0.90); Monocytes Percent Manual 6 % (3-9); Neutrophils Absolute Manual 1.91 K/mm3 (1.7-7.2); Neutrophils Percent Manual 66 % (46-73); Platelet Estimate Decreased (Adequate); Total Cells Counted 100
[2023-06-05 11:37] LABS: Alanine Aminotransferase 23 U/L (14-59); Albumin Level 3.2 g/dL (3.4-5.0); Alkaline Phosphatase 96 U/L (46-116); Ammonia 22 umol/L (11-32); Anion Gap 4 mmol/L (8-16); Aspartate Amino Transferase 27 U/L (15-37); Blood Urea Nitrogen 18 mg/dL (7-18); Calcium 8.8 mg/dL (8.5-10.1); Carbon Dioxide 32 mmol/L (21-32); Chloride 104 mmol/L (98-108); Cholesterol 166 mg/dL (0-200); Creatine Kinase 44 U/L (26-192); Estimated Glomerular Filt Rate 47; Ferritin 32 ng/mL (8-252); Free T4 Free Thyroxine 1.05 ng/dL (0.76-1.46); Glucose 80 mg/dL (70-99); HDL Direct 58 mg/dL (40-60); Iron 79 ug/dL (50-170); LDL Cholesterol Calculated 88 mg/dL (<130); Osmolality Calculated 290 mOsm/kg (285-295); Potassium 4.4 mmol/L (3.5-5.1); Sodium 140 mmol/L (136-145); Thyroid Stimulating Hormone 3.97 uIU/mL (0.36-3.74); Total Protein 7.4 g/dL (6.4-8.2); Triglycerides 99 mg/dL (0-150); Uric Acid 4.5 mg/dL (2.6-6.0); Vitamin B12 780 pg/mL (193-986)
[2023-06-05 11:41] LABS: CRP < 0.5 mg/dL (0.0-0.9)
[2023-06-05 11:52] LABS: Erythrocyte Sedimentation Rate 45 mm/hr (0-20)
[2023-06-07 14:03] LABS: Red Blood Cell Folate 764 ng/mL RBC (>280)
== END 2023-06-05 10:37 | disposition home or self-care (01) ==
LOC: CHSLAB 10:39
PROVIDERS: PCP Internal Medicine; Visit Provider Internal Medicine
DX: K74.5 Biliary cirrhosis, unspecified (principal); E11.610 Type 2 diabetes mellitus with diabetic neuropathic arthropathy; K64.8 Other hemorrhoids; C22.0 Liver cell carcinoma; D61.818 Other pancytopenia; M35.3 Polymyalgia rheumatica; E79.0 Hyperuricemia without signs of inflammatory arthritis and tophaceous disease
CPT/HCPCS: 36415; 80053; 80061; 81001; 82140; 82550; 82607; 82728; 82747; 83036; 83540; 84439; 84443; 84550; 85025; 85055; 85652; 86140

== ENCOUNTER 2023-06-12 14:10 | Outpatient (CLI) | payer MEDICARE, SELFPAY ==
[2023-06-12 14:22] LABS: Appearance Urine Clear (Clear); Bilirubin Urine Negative (Negative); Blood Urine 2+ (Negative); Color Urine Light Yellow (Yellow); Glucose Urine UA Negative (Negative); Ketones Urine Negative (Negative); Leukocyte Esterase Ur 1+ (Negative); Nitrate Urine Negative (Negative); Protein Urine Negative (Negative); Urobilinogen Urine 0.2 mg/dL (0.2-1.0); pH Urine 5.5 (5.0-8.0)
[2023-06-12 14:47] LABS: Add Urine Microscopic? YES; Bacteria Urine 1+ /hpf; Renal Epithelial Cells Urine Few /hpf; Squamous Epithelial Cell Urine Few /hpf (Few)
== END 2023-06-12 14:11 | disposition home or self-care (01) ==
LOC: CHSLAB 14:13
PROVIDERS: PCP Internal Medicine; Visit Provider Internal Medicine
DX: N39.0 Urinary tract infection, site not specified (principal)
CPT/HCPCS: 81001; 87086; 87088

== ENCOUNTER 2023-06-19 09:44 | Outpatient (CLI) | payer MEDICARE, SELFPAY ==
--- NOTE | ~2023-06-19 | CT_ITS ---
EXAMINATION: CT abdomen pelvis wo/w con DATE: 06/19/2023 10:57 INDICATION: Hematuria TECHNIQUE: Computed tomography (CT) of the abdomen and pelvis was performed without intravenous contr ast. CT of the abdomen and pelvis was then performed with a total of 130 mL Omnipaque 350 intravenous contrast using a double-bolus technique for simultaneous opacification of the renal parenchyma and r enal collecting system. The dose-length product (DLP) was 1536.18 mGy-cm. Automated exposure control and iterative reconstruction technique were employed. COMPARISON: MRI, 01/07/2023 FINDINGS: Minimal dependent atelectasis is present in the lung bases. The heart size is normal. Shelley es of cholecystectomy are noted. There is cirrhosis of the liver. Splenomegaly is noted. The pancreas and adrenal glands are normal. No stones are identified in the kidneys, ureters, or bladder. No hydr onephrosis or hydroureter. No suspicious renal lesion is identified. There is questionable focal wall thickening of the anterior/superior urinary bladder. The ureters are poorly opacified throughout the ir course but no suspicious stricture or ureteral lesion are identified. No pathologically enlarged a bdominal or pelvic lymph nodes are identified. No free intraperitoneal gas or evidence of bowel obstr uction. A moderate volume of colonic stool is present. There is severe lumbar spondylosis. IMPRESSION: 1. Possible focal wall thickening of the urinary bladder. Recommend urologic evaluation for direct vi sualization. 2. Cirrhosis with portal hypertension. Reviewed, dictated and finalized at location B. UNTING PROFESSIONAL IMPRESSION: 1. Possible focal wall thickening of the urinary bladder. Recommend urologic ev aluation for direct visualization. 2. Cirrhosis with portal hypertension.
== END 2023-06-19 09:45 | disposition home or self-care (01) ==
PROVIDERS: PCP Internal Medicine; Visit Provider Internal Medicine
DX: R31.9 Hematuria, unspecified (principal); K74.60 Unspecified cirrhosis of liver; K76.6 Portal hypertension
CPT/HCPCS: 74178; 88112; Q9967

== ENCOUNTER 2023-12-13 09:48 | Outpatient (CLI) | payer MEDICARE, SELFPAY ==
[2023-12-13 10:27] LABS: Hematocrit 36.6 % (35.0-42.0); Hemoglobin 11.6 g/dL (11.7-13.8); Immature Platelet Fraction Pct 4.1 % (1.0-7.0); Mean Corpuscular HGB Conc 31.7 g/dL (32-36); Mean Corpuscular Hemoglobin 30.4 pg (27.0-31.0); Mean Corpuscular Volume 96.1 fL (78.0-102.0); Mean Platelet Volume 11.3 fl (9.2-11.8); Platelet Count Result 82 K/mm3 (150-420); Red Blood Count 3.81 M/mm3 (4.20-5.40); Red Cell Distribution Width 15.2 % (11.6-14.4); White Blood Count 2.8 K/mm3 (4.8-10.8)
[2023-12-13 10:31] LABS: Appearance Urine Clear (Clear); Bilirubin Urine 1+ (Negative); Blood Urine 1+ (Negative); Color Urine Dark Yellow (Yellow); Glucose Urine UA Negative (Negative); Ketones Urine Trace (Negative); Leukocyte Esterase Ur Trace (Negative); Nitrate Urine Negative (Negative); Protein Urine Negative (Negative); Specific Grav Ur >= 1.030 (1.010-1.020); pH Urine 5.5 (5.0-8.0)
[2023-12-13 10:38] LABS: Creatinine Urine 247.95 mg/dL (40-278); Hemoglobin A1C 5.2 % (<5.7); MALB Creatinine Ratio 6.7 mg/g (0-30); Microalbumin Urine Random 16.8 mg/L
[2023-12-13 10:42] LABS: Add Urine Microscopic? YES; RBC Urine 21-50 /hpf (0-2)
[2023-12-13 10:43] LABS: Bacteria Urine 2+ /hpf; Mucus Urine Heavy /lpf; Squamous Epithelial Cell Urine Many /hpf (Few)
[2023-12-13 10:53] LABS: Alanine Aminotransferase 24 U/L (14-59); Albumin Level 3.2 g/dL (3.4-5.0); Alkaline Phosphatase 106 U/L (46-116); Ammonia 31 umol/L (11-32); Anion Gap 8 mmol/L (4-12); Aspartate Amino Transferase 32 U/L (15-37); Bilirubin,Total 1.3 mg/dL (0.00-1.00); Blood Urea Nitrogen 17 mg/dL (7-18); Calcium 8.8 mg/dL (8.5-10.1); Carbon Dioxide 28 mmol/L (21-32); Chloride 104 mmol/L (98-108); Cholesterol 160 mg/dL (0-200); Creatine Kinase 145 U/L (26-192); Estimated Glomerular Filt Rate 52; Free T3 2.29 pg/mL (2.18-3.98); Free T4 Free Thyroxine 1.13 ng/dL (0.76-1.46); Glucose 92 mg/dL (70-99); HDL Direct 52 mg/dL (40-60); LDL Cholesterol Calculated 86 mg/dL (<130); Osmolality Calculated 291 mOsm/kg (285-295); Potassium 3.7 mmol/L (3.5-5.1); Sodium 140 mmol/L (136-145); Thyroid Stimulating Hormone 1.89 uIU/mL (0.36-3.74); Total Protein 7.8 g/dL (6.4-8.2); Triglycerides 108 mg/dL (0-150)
[2023-12-13 11:10] LABS: Band Neutrophils Percent 0 % (0-6); Eosinophils Absolute Manual 0.05 K/mm3 (0.02-0.50); Eosinophils Percent Manual 2 % (1-6); Lymphocytes Absolute Manual 0.95 K/mm3 (1.1-4.5); Lymphocytes Percent Manual 34 % (18-44); Monocytes Absolute Manual 0.11 K/mm3 (0.1-0.90); Monocytes Percent Manual 4 % (3-9); Neutrophils Absolute Manual 1.68 K/mm3 (1.7-7.2); Neutrophils Percent Manual 60 % (46-73); Platelet Estimate Decreased (Adequate); Total Cells Counted 100
[2023-12-15 12:24] LABS: Alpha Fetoprotein Tumor Marker 2.7 ng/mL
== END 2023-12-13 09:49 | disposition home or self-care (01) ==
LOC: CHSLAB 09:50
PROVIDERS: PCP Internal Medicine; Visit Provider Internal Medicine
DX: K74.5 Biliary cirrhosis, unspecified (principal); I10 Essential (primary) hypertension; E78.2 Mixed hyperlipidemia; E11.9 Type 2 diabetes mellitus without complications; C22.0 Liver cell carcinoma; D61.818 Other pancytopenia; E79.0 Hyperuricemia without signs of inflammatory arthritis and tophaceous disease
CPT/HCPCS: 36415; 80053; 80061; 81001; 82043; 82105; 82140; 82550; 83036; 84439; 84443; 84481; 84550; 85025; 85055

== ENCOUNTER 2024-02-19 12:45 | Outpatient (CLI) | payer MEDICARE, SELFPAY ==
--- NOTE | ~2024-02-19 | US_ITS ---
EXAMINATION: US arterial ankle brachial ind DATE: 02/19/2024 13:39 INDICATION: Peripheral arterial disease. TECHNIQUE: Segmental pressures and plethysmographic and Doppler waveforms of the brachial and lower e xtremity arteries were obtained. COMPARISON: None. FINDINGS: Right and left brachial artery pressures of 137 mm Hg and 151 mm Hg, respectively, are concordant (no rmal difference <= 30 mmHg). The right ankle-brachial index (FLORENCIO) could not be measured due to inability to cuff occlude the arter ies (normal >= 0.9-1.0). The right great toe-brachial index (TBI) is 0.98 (normal >= 0.65). Arterial Doppler waveforms are biphasic at the ankle. The left FLORENCIO is 1.26. The left TBI is 1.09. Arterial Doppler waveforms are biphasic at the ankle. IMPRESSION: 1. No significant arterial occlusive disease. Reviewed, dictated and finalized at location A.
--- NOTE | ~2024-02-19 | US_ITS ---
EXAMINATION: US carotid duplex BI DATE: 02/19/2024 13:38 INDICATION: Carotid stenosis TECHNIQUE: Grayscale, color Doppler, and pulsed Doppler images of the cervical carotid arteries were obtained. The degree of vessel stenosis is placed in one of the following categories: normal, <50%, 5 0-69%, >=70% but less than near-occlusion, near-occlusion, or total occlusion. Note that percent sten osis relative to normal distal artery lumen diameter is indirectly measured from velocity measurement s as described by Sascha, et al. Radiology 2003; 229:[id number]. COMPARISON: None. FINDINGS: RIGHT: The right common carotid artery (CCA) peak systolic velocity (PSV) is 118 cm/s. The right internal ca rotid artery (ICA) PSV is 92 cm/s. The right ICA end-diastolic velocity (EDV) is 28 cm/s. The right I CA/CCA PSV ratio is 0.8. Grayscale and color Doppler images yield an estimate of <50% diameter reduct ion from plaque in the ICA. The external carotid artery (ECA) PSV is 79 cm/s. There is antegrade flow in the right vertebral artery. LEFT: The left CCA PSV is 96 cm/s. The left ICA PSV is 102 cm/s. The left ICA EDV is 27 cm/s. The left ICA/ CCA PSV ratio is 1.0. Grayscale and color Doppler images yield an estimate of <50% diameter reduction from plaque in the ICA. The ECA PSV is 74 cm/s. There is antegrade flow in the left vertebral artery . IMPRESSION: 1. <50% stenosis in the right internal carotid artery. 2. <50% stenosis in the left internal carotid artery. 3. Cardiac arrhythmia is present. Correlate with EKG. Reviewed, dictated and finalized at location A.
== END 2024-02-19 12:46 | disposition home or self-care (01) ==
LOC: CHSIMG 12:48
PROVIDERS: PCP Internal Medicine; Visit Provider Internal Medicine
DX: I65.23 Occlusion and stenosis of bilateral carotid arteries (principal)
CPT/HCPCS: 93880; 93922

== ENCOUNTER 2024-05-15 22:36 | Inpatient (IN) | payer MEDICARE, SELFPAY ==
--- NOTE | ~2024-05-15 | XR_ITS ---
EXAMINATION: XR surgery orthopedic DATE: 05/16/2024 14:34 INDICATION: Intraoperative evaluation during right hip hemiarthroplasty TECHNIQUE: Frontal view of the right hip was obtained. COMPARISON: 05/15/2024 FINDINGS: Intraoperative image during a right hip hemiarthroplasty demonstrate resection of the right femoral h ead and neck and placement of a femoral broach with the proximal tip centered over the empty acetabul um. Subsequent images demonstrate placement of the broach with the completed femoral component which is in near-anatomic alignment with the head component centered within the right acetabulum. Portions of the pelvis are obscured by either excluded from the [id number] orbit obscured by a bolster. No fractures in the visualized bones. IMPRESSION: 1. Expected appearance during right hip hemiarthroplasty. Reviewed, dictated and finalized at location B. FIC INSPECTOR
--- NOTE | ~2024-05-15 | XR_ITS ---
EXAMINATION: [id number] DATE: 05/17/2024 14:56 INDICATION: Right knee pain post right bipolar hip arthroplasty. TECHNIQUE: AP and crosstable lateral views of the right knee were obtained. COMPARISON: None. FINDINGS: Bone alignment is normal. No fracture. Chondrocalcinosis in the medial lateral compartments of the kn ee. There is severe joint space narrowing in the medial compartment with suggestion of some early rem odeling along the medial tibial plateau. Small marginal osteophytes in the lateral compartment. Mild joint space narrowing and additional small marginal osteophytes at the patellofemoral compartment. Sm all right knee joint effusion. IMPRESSION: 1. Tricompartmental osteoarthritis, severe in the medial compartment and small knee joint effusion. Reviewed, dictated and finalized at location B. CTOR OF ADMISSIONS
--- NOTE | ~2024-05-15 | XR_ITS ---
CHEST RADIOGRAPH CLINICAL HISTORY: pre op . COMPARISON: 04/24/2022 TECHNIQUE: Single portable view of the chest. FINDINGS The cardiomediastinal silhouette is unremarkable. The lungs are clear. Visualized osseous structures and soft tissues are unremarkable. IMPRESSION: No focal infiltrate or effusion. Reviewed, dictated and finalized at location A. TREASURY CONSULTANT
--- NOTE | ~2024-05-15 | XR_ITS ---
HISTORY: fall, hip pain, unable to ambulate TECHNIQUE: 2 views of the right hip with an AP view of the pelvis FINDINGS: Acute fracture of the right femoral neck with slight impaction and overriding of the fracture fragmen t. Diffuse bony demineralization is noted. Superior lateral sclerosis of the bilateral femoral acetabular joint spaces with sclerosis of the pub ic symphysis. Degenerative disease within the lower lumbar spine. Fecal stasis within multiple aerated bowel loops within the pelvis. IMPRESSION: Acute right femoral neck fracture with slight impaction and overriding of fracture fragm ent Reviewed, dictated and finalized at location A. CARDIAC CATH IMPRESSION: Acute right femoral neck fracture with slight impaction and overri ding of fracture fragment
[2024-05-15 22:36] VITALS: BP 184/77; PULSE 83; RESP 18; TEMP 36.6; O2SAT 98
--- NOTE | 2024-05-15 22:45 | ECG_ITS ---
Test Date: 2024-05-15 22:46:38 Measurements Intervals [place] Rate: 76 P: 80 SD: 191 QRS: -11 QRSD: 92 T: -2 QT: 376 QTc: 423 Interpretive Statements SINUS RHYTHM WITH OCCASIONAL SUPRAVENTRICULAR PREMATURE COMPLEXES BORDERLINE R WAVE PROGRESSION, ANTERIOR LEADS BORDERLINE ST-T WAVE ABNORMALITY- INFERIOR LEADS BASELINE ARTIFACT- I, II, III, AVR, AVL, AVF, V1 BORDERLINE ECG No previous ECG available for comparison Electronically Signed On 05-16-2024 05:25:41 TRANSVERSE ABDOMINAL MUSCLE NURSE by Tigre Mckeon D.O.
[2024-05-15 23:01] VITALS: BP 144/72; PULSE 75; RESP 10; O2SAT 99
[2024-05-15] MEDS: ONDANSETRON INJ 4 MG/2 ML VIAL IV PUSH (23:09)
[2024-05-15] MEDS: MORPHINE SULFATE (*CRX) 4 MG/ML INJ IV PUSH (23:09)
[2024-05-15 23:24] LABS: Basophils Percent Auto 0.4 % (0.2-1.2); Eosinophils Absolute Auto 0.1 K/mm3 (0-0.3); Eosinophils Percent Auto 1.9 % (0-4.4); Hematocrit 32.9 % (37.0-47.0); Hemoglobin 10.7 g/dL (12.0-15.0); Immature Granulocyte Absolute 0.03 K/mm3 (0.00-0.031); Immature Granulocyte Percent A 1.2 % (0-0.5); Immature Platelet Fraction Pct 5.3 % (0.9-11.2); Lymphocytes Absolute Auto 0.48 K/mm3 (0.9-3.2); Lymphocytes Percent Auto 18.6 % (18.3-44.2); Mean Corpuscular HGB Conc 32.5 g/dl (32-36); Mean Corpuscular Hemoglobin 30.8 pg (26-34); Mean Corpuscular Volume 94.8 fl (80-100); Mean Platelet Volume 11.4 fl (7.4-10.4); Monocytes Absolute Auto 0.2 K/mm3 (0.1-0.6); Monocytes Percent Auto 7.8 % (2.6-8.5); Neutrophils Absolute Auto 1.8 K/mm3 (1.3-6.7); Neutrophils Percent Auto 70.1 % (45.5-73.1); Platelet Count Result 92 k/mm3 (150-375); Red Blood Count 3.47 M/mm3 (4.2-5.4); Red Cell Distribution Width 15.3 % (11.5-14.5); White Blood Count 2.6 K/mm3 (4.5-10.0)
[2024-05-15 23:33] LABS: Alanine Aminotransferase 17 U/L (6-35); Albumin Level 3.6 g/dL (3.5-5.1); Alkaline Phosphatase 98 U/L (38-126); Anion Gap 5 mmol/L (4-12); Aspartate Amino Transferase 41 U/L (14-36); Bilirubin,Total 1.3 mg/dL (0.2-1.3); Blood Urea Nitrogen 18 mg/dL (7-17); Calcium 8.7 mg/dL (8.4-10.2); Carbon Dioxide 30 mmol/L (22-30); Chloride 102 mmol/L (98-107); Estimated CRCL calculation 48 ml/min; Estimated Glomerular Filt Rate > 60; Glucose 173 mg/dL (65-110); INR 1.3; Partial Thromboplastin Time 34.7 Seconds (22.3-36.8); Potassium 4.6 mmol/L (3.4-5.0); Prothrombin Time 16.4 Seconds (11.1-14.7); Sodium 137 mmol/L (137-145)
[2024-05-16] VITALS (18 sets, daily range): BP systolic 117–166; BP diastolic 42–78; PULSE 68–99; RESP 12–20; TEMP 36.1–37.6; O2SAT 93–100; BMI 30.2
--- NOTE | 2024-05-16 00:39 | ED.FALL ---
HPI - Fall General Chief Complaint: Fall Stated Complaint: R LEG/HIP PAIN S/P FALL Time Seen by Provider: 05/15/24 22:48 Source: patient Mode of arrival: EMS Limitations: no limitations History of Present Illness HPI Narrative: Patient is an 84-year-old female who presents the ED via EMS with report of a fall. Patient reports she was walking inside from taking her dog outside when she tripped and fell, landing onto her right side. She did not lose consciousness, hit her head, or pass out. She states she was unable to get up off the ground due to pain in her right hip. EMS was then called. Shortening and external rotation was noted. Patient denies any numbness. Denies any other areas of pain. She is not on any anticoagulation. Related Data Home Medications Medication Instructions Recorded Confirmed allopurinol 100 mg tablet 100 mg PO .COMPLEX 11/06/19 10/23/23 hydrocodone 10 mg-acetaminophen 1 tablet PO QID PRN Pain 11/06/19 10/23/23 325 mg tablet pantoprazole 40 mg granules 80 mg PO DAILY 11/06/19 10/23/23 delayed-release for susp in packet propranolol 20 mg tablet 20 mg PO BID 11/06/19 10/23/23 glimepiride 4 mg tablet 4 mg PO DAILY 04/24/22 10/23/23 aspirin 81 mg tablet 81 mg PO DAILY 06/30/22 10/23/23 Allergies Allergy/AdvReac Type Severity Reaction Status Date / Time No Known Allergies Allergy Verified 10/23/23 14:22 Review of Systems Review of Systems: All systems reviewed & are unremarkable except as noted in HPI. All systems reviewed & are unremarkable except as noted in HPI and below [facility] Past Medical History Medical History (Updated 05/16/24 @ 01:20 by Aparna Gan PA-C) Anemia Arthritis Cancer Diabetes Elevated lipids Hypertension Surgical History Surgical History History of appendectomy Hx of hysterectomy, total Hx of tonsillectomy Family History Family History Father Brain tumor Mother Cerebrovascular accident Mother Cerebrovascular accident Social History Social History Smoking status: Former smoker Tobacco type: cigarettes Substance use type: does not use Living arrangements: alone Spiritual care concerns: No Exam Narrative: GENERAL: Elderly but well appearing, obese with BMI of 32.4, non-toxic, in no acute distress. HEAD: Normocephalic, atraumatic. RESPIRATORY: Airway patent, respirations nonlabored. Clear to auscultation bilaterally, no rales, rhonchi, wheezing. CARDIOVASCULAR: Regular rate and rhythm without murmurs, rubs, or gallops. Pedal pulses intact. MUSCULOSKELETAL: No gross deformities. Mild shortening and external rotation noted of right lower extremity. Tenderness to palpation throughout right proximal thigh/hip joint. Limited range of motion of right lower extremity due to pain. Sensation intact throughout extremity. SKIN: Warm, dry, normal color. NEURO: A&O X3. Speech clear. No ataxic movements. PSYCHIATRIC: Appropriate mood and affect. Normal interaction. Course Vital Signs Vital signs: Vital Signs Temperature 97.8 F 05/15/24 22:36 Pulse Rate 83 05/15/24 22:36 Respiratory Rate 18 05/15/24 22:36 Blood Pressure 184/77 H 05/15/24 22:36 Pulse Oximetry 98 05/15/24 22:36 Oxygen Delivery Room Air 05/15/24 22:36 Temperature 97.8 F 05/15/24 22:36 Pulse Rate 83 05/15/24 22:36 Respiratory Rate 18 05/15/24 22:36 Blood Pressure 184/77 H 05/15/24 22:36 Pulse Oximetry 98 05/15/24 22:36 Oxygen Delivery Room Air 05/15/24 22:36 MDM - Fall MDM Narrative Medical decision making narrative: Patient presented to ED status post ground level mechanical fall, pain to right hip. Deformity noted. No anticoagulation. Patient neurovascularly intact. Vital signs are stable. X-ray right hip showing right femoral neck fracture with slight impaction. Consistent with exam and injury. Preop workup initiated. Mild pancytopenia noted. This appears consistent with previous records. Discussed case with Dr. Balbuena, orthopedics, who reviewed images himself, will see in the morning and consult. Discussed case with Dr. Bautista, hospitalist, accepted patient for admission. NPO. Pain meds ordered. Patient/family in agreement with plan and need for admission. Medical Records Attestation: I reviewed the patient's medical records. Lab Data Attestation: I reviewed the patient's lab results. 05/15/24 23:13 05/15/24 23:13 Labs: Lab Results 05/15/24 Range/Units 23:13 WBC 2.6 L (4.5-10.0) K/mm3 RBC 3.47 L (4.2-5.4) M/mm3 Hgb 10.7 L (12.0-15.0) g/dL Hct 32.9 L (37.0-47.0) % MCV 94.8 (80-100) fl MCH 30.8 (26-34) pg MCHC 32.5 (32-36) g/dl RDW 15.3 H (11.5-14.5) % Plt Count 92 L (150-375) k/mm3 MPV 11.4 H (7.4-10.4) fl Immature Gran % (Auto) 1.2 H (0-0.5) % Neut % (Auto) 70.1 (45.5-73.1) % Lymph % (Auto) 18.6 (18.3-44.2) % [place] % (Auto) 7.8 (2.6-8.5) % Eos % (Auto) 1.9 (0-4.4) % Baso % (Auto) 0.4 (0.2-1.2) % Lymph # (Auto) 0.48 L (0.9-3.2) K/mm3 [place] # (Auto) 0.2 (0.1-0.6) K/mm3 Eos # (Auto) 0.1 (0-0.3) K/mm3 Baso # (Auto) 0.0 (0.0-0.1) K/mm3 Abs Immat Gran (auto) 0.03 (0.00-0.031) K/mm3 Absolute Neuts (auto) 1.8 (1.3-6.7) K/mm3 Absolute Nucleated RBC 0.000 (0.0-0.012) K/mm3 Nucleated RBC % 0.0 (0.0-0.2) % % Immature Plt Fraction 5.3 (0.9-11.2) % PT 16.4 H (11.1-14.7) Seconds INR 1.3 APTT 34.7 (22.3-36.8) Seconds Sodium 137 (137-145) mmol/L Potassium 4.6 (3.4-5.0) mmol/L Chloride 102 (98-107) mmol/L Carbon Dioxide 30 (22-30) mmol/L Anion Gap 5 (4-12) mmol/L BUN 18 H (7-17) mg/dL Creatinine 0.80 (0.7-1.0) mg/dL Estim Creat Clear Calc 48 ml/min Estimated GFR > 60 (59 - ) Glucose 173 H (65-110) mg/dL Calcium 8.7 (8.4-10.2) mg/dL Total Bilirubin 1.3 (0.2-1.3) mg/dL AST 41 H (14-36) U/L ALT 17 (6-35) U/L Alkaline Phosphatase 98 (38-126) U/L Total Protein 8.0 (6.3-8.2) g/dL Albumin 3.6 (3.5-5.1) g/dL Blood Type A Positive Antibody Screen Negative Imaging Data Attestation: I personally reviewed and interpreted this imaging study as follows: Radiologist's impression: ITS Impressions Chest X-Ray 05/15/24 23:33 IMPRESSION: No focal infiltrate or effusion. Hip/Pelvis X-Ray 05/15/24 23:33 IMPRESSION: Acute right femoral neck fracture with slight impaction and overriding of fracture fragment ECG Data EKG #1: Attestation: I personally reviewed and interpreted this ECG as follows: ECG completion date: 05/15/24 ECG completion time: 22:46 EKG Interpretation: normal rate (76), sinus rhythm, PVCs and no ST changes Discharge Plan Discharge Clinical Impression: Fall from ground level, Pancytopenia Closed fracture of neck of right femur Qualifiers: Encounter type: initial encounter Qualified Code(s): S72.001A - Fracture of unspecified part of neck of right femur, initial encounter for closed fracture Patient Disposition: Still a Patient Condition: Stable Prescriptions: No Action glimepiride 4 mg tablet 4 mg PO DAILY allopurinol 100 mg tablet 100 mg PO .COMPLEX Rx Instructions: 100 mg PO ; hydrocodone-acetaminophen 10-325 mg tablet 1 tablet PO QID PRN (Reason: Pain) pantoprazole [address] for susp in packet 80 mg PO DAILY propranolol 20 mg tablet 20 mg PO BID Adult Low Dose Aspirin 81 mg Tablet 81 mg PO DAILY Follow-up/Referrals: Rena Asher MD [Primary Care Provider] -
[2024-05-16] MEDS: MORPHINE SULFATE (*CRX) 4 MG/ML INJ IV PUSH (00:50)
--- NOTE | 2024-05-16 01:01 | PC.NURSE ---
Patient daughter at bedside reports she will bring 2 bottles of rx eye drops later today. Patient and daughter unsure of name/dose of medications.
[2024-05-16] MEDS: HYDROmorphone HCL INJ (*CRX) 1 MG/ML SYR 0.5 MG IV PUSH ×2 (01:36→07:53)
[2024-05-16] MEDS: SODIUM CHLORIDE 0.9% IV 1,000 ML 75 ML IV CONT (03:21)
--- NOTE | 2024-05-16 06:44 | P.CONOP_ITS ---
Assessment and Plan Assessment and plan (1) Closed fracture of neck of right femur: Qualifiers: Encounter type: initial encounter Qualified Code(s): S72.001A - Fracture of unspecified part of neck of right femur, initial encounter for c losed fracture Code(s): S72.001A - Fracture of unspecified part of neck of right femur, initial encounter for closed fracture Status: Acute Assessment and Plan: Patient has a displaced femoral neck fracture right. She sustained a fall. Previous to this she was ambulatory. I have discussed treatment options with her in detail and recommended bipolar endoprosthetic replacement. Will proceed per her request. Discussed risks benefits limitations and alternatives in detail. History of Present Illness HPI Consult date: 05/16/24 Chief complaint: R femoral neck fracture; Glf Review of Systems Review of Systems: All systems reviewed & are unremarkable except as noted in HPI. All systems reviewed & are unremarkable except as noted in HPI and below PMF[facility] Past Medical History Medical History (Updated 05/16/24 @ 01:20 by Aparna Gan PA-C) Anemia Arthritis Cancer Diabetes Elevated lipids Hypertension Surgical History Surgical History History of appendectomy Hx of hysterectomy, total Hx of tonsillectomy Family History Family History Father Brain tumor Mother Cerebrovascular accident Mother Cerebrovascular accident Social History Social History Smoking status: Never smoker Tobacco type: cigarettes Alcohol intake: never Substance use: never Substance use type: does not use Do You Feel Safe in your Home?: Yes Lack of Transportation: No Lack of Food: Never True Current Housing: I Have Housing Concerned About Future Housing: No Difficulty Paying Gas/Electric Bills: No Difficulty Paying for Meds: No Currently Unemployed: No Education: High School Diploma/GED Difficulty w/ Childcare or Family Care: No Living arrangements: alone Spiritual care concerns: No Meds Home Medications and Allergies Home Medications Medication Instructions Recorded Confirmed Type allopurinol 100 mg tablet 100 mg PO .COMPLEX 11/06/19 10/23/23 History hydrocodone 10 mg-acetaminophen 1 tablet PO QID PRN Pain 11/06/19 10/23/23 History 325 mg tablet pantoprazole 40 mg granules 80 mg PO DAILY 11/06/19 10/23/23 History delayed-release for susp in packet propranolol 20 mg tablet 20 mg PO BID 11/06/19 10/23/23 History glimepiride 4 mg tablet 4 mg PO DAILY 04/24/22 10/23/23 History aspirin 81 mg tablet 81 mg PO DAILY 06/30/22 10/23/23 History Allergies Allergy/AdvReac Type Severity Reaction Status Date / Time No Known Allergies Allergy Verified 05/16/24 03:22 Vital Signs Vital Signs - 24 hr 05/15/24 22:36 05/15/24 23:01 05/16/24 01:00 Temperature 97.8 F Pulse Rate 83 75 68 Respiratory Rate 18 10 L 13 Blood Pressure 184/77 H 144/72 H Pulse Oximetry 98 99 100 Oxygen Delivery Room Air 05/16/24 01:26 05/16/24 02:16 05/16/24 03:34 Temperature 98.9 F Pulse Rate 68 71 71 Respiratory Rate 16 12 18 Blood Pressure 117/70 156/56 H 163/53 H Pulse Oximetry 97 95 96 Oxygen Delivery 05/16/24 03:47 05/16/24 05:50 Temperature 97.6 F Pulse Rate 75 Respiratory Rate 12 Blood Pressure 151/53 H Pulse Oximetry 95 Oxygen Delivery Room Air Exam Narrative: Patient has pain with any manipulation of her right hip. She can wiggle her toes. Neurologically she appears to be grossly intact. Radiology Reports: Comments: Patient: Khadra Crook HISTORY: fall, hip pain, unable to ambulate TECHNIQUE: 2 views of the right hip with an AP view of the pelvis FINDINGS: Acute fracture of the right femoral neck with slight impaction and overriding of the fracture fragment. Diffuse bony demineralization is noted. Superior lateral sclerosis of the bilateral femoral acetabular joint spaces with sclerosis of the pubic symphysis. Degenerative disease within the lower lumbar spine. Fecal stasis within multiple aerated bowel loops within the pelvis. IMPRESSION: Acute right femoral neck fracture with slight impaction and overriding of fracture fragment Reviewed, dictated and finalized at location A. Foot X-Ray 02/08/21 Hip X-Ray 06/17/20 Hip/Pelvis X-Ray 05/15/24 Hip MRI 06/24/20 Knee MRI 11/08/21 Lumbar Spine X-Ray 06/17/20 Lumbar Spine MRI 06/24/20 Results Labs 05/15/24 23:13 05/15/24 23:13 Labs: Abnormal lab results 05/15/24 Range/Units 23:13 WBC 2.6 L (4.5-10.0) K/mm3 RBC 3.47 L (4.2-5.4) M/mm3 Hgb 10.7 L (12.0-15.0) g/dL Hct 32.9 L (37.0-47.0) % RDW 15.3 H (11.5-14.5) % Plt Count 92 L (150-375) k/mm3 MPV 11.4 H (7.4-10.4) fl Immature Gran % (Auto) 1.2 H (0-0.5) % Lymph # (Auto) 0.48 L (0.9-3.2) K/mm3 PT 16.4 H (11.1-14.7) Seconds BUN 18 H (7-17) mg/dL Glucose 173 H (65-110) mg/dL AST 41 H (14-36) U/L H & H 05/15/24 Range/Units 23:13 Hgb 10.7 L (12.0-15.0) g/dL Hct 32.9 L (37.0-47.0) % Coagulation 05/15/24 Range/Units 23:13 INR 1.3 All other labs normal.
--- NOTE | 2024-05-16 07:25 | P.HP_ITS ---
H&P: HPI History of Present Illness Date/Time: 05/16/24 07:25 Chief Complaint: Fall Narrative: This is an 84-year-old female with a past medical history significant for liver cancer, osteoarthritis, polymyalgia, spinal stenosis, diabetes, hypertension, and hyperlipidemia who presented to the emergency room via EMS after sustaining a mechanical fall at home. The patient and her daughter provided the following history. Yesterday she was coming back inside from letting her dog out to go to the bathroom when she tripped over the door frame causing her to fall on her right side. She was unable to stand but did have her cell phone so she was able to contact her family who came a to assess her. They determined she needed further care and EMS was called. In the emergency room the patient was found to have right femoral neck fracture with slight impaction. Her right leg was externally rotated and shortened. The patient states prior to this fall she has been in her usual state of health. She denies any dizziness, chest fluttering, or feeling faint prior to her episode. She states that she has pain in her feet and legs chronically that is always a 9/10. In regards to her right hip fracture she rates her pain 10/10. Orthopedics was consulted and the patient was admitted in the setting for surgical intervention. Review of Systems Review of Systems: All systems reviewed & are unremarkable except as noted in HPI and below PMFSH Past Medical History Medical History (Updated 05/16/24 @ 13:30 by Margot Hicks APRN) Anemia Arthritis Cancer Diabetes Elevated lipids Hypertension Liver cancer Surgical History Surgical History History of ablation of neoplasm of liver History of appendectomy Hx laparoscopic cholecystectomy Hx of hysterectomy, total Hx of tonsillectomy Family History Family History Father Brain tumor Mother Cerebrovascular accident Mother Cerebrovascular accident Social History Social History (Updated 05/16/24 @ 13:28 by Margot Hicks APRN) Social History: Patient lives at home alone with her dog. She is normally independent without use of assistive devices. Her daughter Nicole, is her emergency contact. Patient would like to remain a full code. Smoking status: Former smoker Tobacco type: cigarettes Alcohol intake: never Substance use: never Substance use type: does not use Do You Feel Safe in your Home?: Yes Lack of Transportation: No Lack of Food: Never True Current Housing: I Have Housing Concerned About Future Housing: No Difficulty Paying Gas/Electric Bills: No Difficulty Paying for Meds: No Currently Unemployed: No Education: High School Diploma/GED Difficulty w/ Childcare or Family Care: No Living arrangements: alone Spiritual care concerns: No Meds Home Medications and Allergies Home Medications Medication Instructions Recorded Confirmed Type allopurinol 100 mg tablet 100 mg PO .COMPLEX 11/06/19 05/16/24 History hydrocodone 10 mg-acetaminophen 1 tablet PO QID PRN Pain 11/06/19 05/16/24 History 325 mg tablet propranolol 20 mg tablet 20 mg PO BID 11/06/19 05/16/24 History glimepiride 4 mg tablet 4 mg PO DAILY 04/24/22 05/16/24 History aspirin 81 mg tablet 81 mg PO DAILY 06/30/22 05/16/24 History ketorolac 0.5 % eye drops 1 drp LEFT EYE TID 05/16/24 05/16/24 History moxifloxacin 0.5 % eye drops 1 drp LEFT EYE BID 05/16/24 05/16/24 History pantoprazole 40 mg tablet,delayed 40 mg PO Q12H 05/16/24 05/16/24 History release Allergies Allergy/AdvReac Type Severity Reaction Status Date / Time No Known Allergies Allergy Verified 05/16/24 13:37 Vital Signs Vital Signs - 24 hr 05/15/24 22:36 05/15/24 23:01 05/16/24 01:00 Temperature 97.8 F Pulse Rate 83 75 68 Respiratory Rate 18 10 L 13 Blood Pressure 184/77 H 144/72 H Pulse Oximetry 98 99 100 Oxygen Delivery Room Air 05/16/24 01:26 05/16/24 02:16 05/16/24 03:34 Temperature 98.9 F Pulse Rate 68 71 71 Respiratory Rate 16 12 18 Blood Pressure 117/70 156/56 H 163/53 H Pulse Oximetry 97 95 96 Oxygen Delivery 05/16/24 03:47 05/16/24 05:50 Temperature 97.6 F Pulse Rate 75 Respiratory Rate 12 Blood Pressure 151/53 H Pulse Oximetry 95 Oxygen Delivery Room Air Exam Narrative: General: appears comfortable, in no acute distress Respiratory: breathing is unlabored with even chest rise/fall, lungs are clear without wheezing, rhonchi, and crackles Cardiovascular: Rate and rhythm regular, normal s1s2, no murmur Abdomen: Soft, round, non-tender, active bowel sounds Extremities: No cyanosis, trace bilateral lower extremity edema, no clubbing. Pulses 2/2. Right leg is externally rotated and shortened Neuro: A&O x 4, flat affect Skin: Warm, dry, intact H&P: Results Labs Labs: Short CBC 05/15/24 Range/Units 23:13 WBC 2.6 L (4.5-10.0) K/mm3 Hgb 10.7 L (12.0-15.0) g/dL Hct 32.9 L (37.0-47.0) % Plt Count 92 L (150-375) k/mm3 BMP 05/15/24 23:13 Sodium 137 Potassium 4.6 Chloride 102 Carbon Dioxide 30 BUN 18 H Creatinine 0.80 Glucose 173 H Calcium 8.7 Liver Function 05/15/24 Range/Units 23:13 Total Bilirubin 1.3 (0.2-1.3) mg/dL AST 41 H (14-36) U/L ALT 17 (6-35) U/L Alkaline Phosphatase 98 (38-126) U/L Albumin 3.6 (3.5-5.1) g/dL Assessment and Plan Assessment and plan (1) Closed fracture of neck of right femur: Qualifiers: Encounter type: initial encounter Qualified Code(s): S72.001A - Fracture of unspecified part of neck of right femur, initial encounter for closed fracture Code(s): S72.001A - Fracture of unspecified part of neck of right femur, initial encounter for closed fracture Status: Acute Assessment and Plan: Status post mechanical fall resulting in right hip fracture. * Orthopedics is consulted and is taking her to the OR today * DVT prophylaxis, pain management per Ortho * PT OT will evaluate after surgery * Chanda brumfield ordered * Patient will likely require acute rehab versus SNF versus swing bed (2) Fall from ground level: Code(s): W18.30XA - Fall on same level, unspecified, initial encounter Status: Acute Assessment and Plan: * Fall precaution * PT OT consult (3) Diastolic dysfunction: Code(s): I51.89 - Other ill-defined heart diseases Status: Acute Assessment and Plan: Patient has a history of diastolic dysfunction. Echo from 01/2023 shows LV systolic function normal with an EF estimated 65-70%, LV diastolic dysfunction is present with moderate AV sclerosis and stenosis. Mild pulmonary hypertension with an estimated PA systolic pressure of 43 mm Hg. She has chronic lower extremity edema: left greater than right. * Patient appears to be on propranolol 20 mg b.i.d., aspirin 81 mg daily. She follows with Dr. Mckeon. 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 * strict I&O * daily weights * low sodium, dm diet after surgery (4) Diabetes: Code(s): E11.9 - Type 2 diabetes mellitus without complications Status: Acute Assessment and Plan: Hemoglobin 5.2% in 12/2023. Patient takes glimepiride daily. * Hold oral diabetes while inpatient * AC/HS accu checks * low dose SSI, hypoglycemia protocol Quality VTE Prophylaxis VTE prophylaxis: mechanical ordered Hospitalist [facility] Advance Care Plan I have confirmed that the patient's Advanced Care Plan is present, code status is documented, or surrogate decision maker is listed in patient medical record.: Yes Medication Reconciliation I have utilized all available resources to obtain, update and review the patients current medications (includes all prescriptions, OTC, herbals, cannabis, and nutritional supplements).: Yes
--- NOTE | 2024-05-16 12:23 | PC.NURSE ---
To pre-op per [bed], IV [20 L AC ]. Report given to [Greg ].
[2024-05-16] MEDS: LACTATED RINGERS 1,000 ML 30 ML IV CONT (12:33)
--- NOTE | 2024-05-16 12:33 | P.PNAN_ITS ---
Anes - Initial Pre Proc Eval Procedure: Operation Date: 05/16/24 13:00 Proposed Procedures p Right Bipolar Hip Replacement(Right) - Lei Balbuena MD Date/Time: 05/16/24 12:33 Surgeon: Margot Hicks APRN Pre Op Diagnosis: R femoral neck fracture; Glf Patient Data Age: 84 Gender: F Height: 1.63 m Weight: 79.8 kg Last Vital Signs Temp 36.4 C 05/16/24 05:50 Pulse 75 05/16/24 05:50 Resp 12 05/16/24 05:50 BP 151/53 H 05/16/24 05:50 Pulse Ox 95 05/16/24 05:50 O2 Del Method Room Air 05/16/24 08:00 Allergies Allergy/AdvReac Type Severity Reaction Status Date / Time No Known Allergies Allergy Verified 05/16/24 03:22 Home Medications Medication Instructions Recorded Confirmed Type allopurinol 100 mg tablet 100 mg PO .COMPLEX 11/06/19 05/16/24 History hydrocodone 10 mg-acetaminophen 1 tablet PO QID PRN Pain 11/06/19 05/16/24 History 325 mg tablet propranolol 20 mg tablet 20 mg PO BID 11/06/19 05/16/24 History glimepiride 4 mg tablet 4 mg PO DAILY 04/24/22 05/16/24 History aspirin 81 mg tablet 81 mg PO DAILY 06/30/22 05/16/24 History ketorolac 0.5 % eye drops 1 drp LEFT EYE TID 05/16/24 05/16/24 History moxifloxacin 0.5 % eye drops 1 drp LEFT EYE BID 05/16/24 05/16/24 History pantoprazole 40 mg tablet,delayed 40 mg PO Q12H 05/16/24 05/16/24 History release Laboratory Tests 05/15/24 23:13 WBC 2.6 L K/mm3 (4.5-10.0) RBC 3.47 L M/mm3 (4.2-5.4) Hgb 10.7 L g/dL (12.0-15.0) Hct 32.9 L % (37.0-47.0) MCV 94.8 fl (80-100) MCH 30.8 pg (26-34) MCHC 32.5 g/dl (32-36) RDW 15.3 H % (11.5-14.5) Plt Count 92 L k/mm3 (150-375) MPV 11.4 H fl (7.4-10.4) Immature Gran % (Auto) 1.2 H % (0-0.5) Neut % (Auto) 70.1 % (45.5-73.1) Lymph % (Auto) 18.6 % (18.3-44.2) [place] % (Auto) 7.8 % (2.6-8.5) Eos % (Auto) 1.9 % (0-4.4) Baso % (Auto) 0.4 % (0.2-1.2) Lymph # (Auto) 0.48 L K/mm3 (0.9-3.2) [place] # (Auto) 0.2 K/mm3 (0.1-0.6) Eos # (Auto) 0.1 K/mm3 (0-0.3) Baso # (Auto) 0.0 K/mm3 (0.0-0.1) Abs Immat Gran (auto) 0.03 K/mm3 (0.00-0.031) Absolute Neuts (auto) 1.8 K/mm3 (1.3-6.7) Absolute Nucleated RBC 0.000 K/mm3 (0.0-0.012) Nucleated RBC % 0.0 % (0.0-0.2) % Immature Plt Fraction 5.3 % (0.9-11.2) PT 16.4 H Seconds (11.1-14.7) INR 1.3 APTT 34.7 Seconds (22.3-36.8) Sodium 137 mmol/L (137-145) Potassium 4.6 mmol/L (3.4-5.0) Chloride 102 mmol/L (98-107) Carbon Dioxide 30 mmol/L (22-30) Anion Gap 5 mmol/L (4-12) BUN 18 H mg/dL (7-17) Creatinine 0.80 mg/dL (0.7-1.0) Estim Creat Clear Calc 48 ml/min Estimated GFR > 60 (59 - ) Glucose 173 H mg/dL (65-110) Calcium 8.7 mg/dL (8.4-10.2) Total Bilirubin 1.3 mg/dL (0.2-1.3) AST 41 H U/L (14-36) ALT 17 U/L (6-35) Alkaline Phosphatase 98 U/L (38-126) Total Protein 8.0 g/dL (6.3-8.2) Albumin 3.6 g/dL (3.5-5.1) Blood Type A Positive Antibody Screen Negative Patient hx anesthesia problems: none Family hx anesthesia problems: none Results Review: All pre-operative results and documents have been reviewed as part of the pre- operative evaluation. [facility] Past Medical History Medical History Anemia Arthritis Cancer Diabetes Elevated lipids Hypertension Surgical History Surgical History History of appendectomy Hx of hysterectomy, total Hx of tonsillectomy Family History Family History Father Brain tumor Mother Cerebrovascular accident Mother Cerebrovascular accident Social History Social History Smoking status: Never smoker Tobacco type: cigarettes Alcohol intake: never Substance use: never Substance use type: does not use Do You Feel Safe in your Home?: Yes Lack of Transportation: No Lack of Food: Never True Current Housing: I Have Housing Concerned About Future Housing: No Difficulty Paying Gas/Electric Bills: No Difficulty Paying for Meds: No Currently Unemployed: No Education: High School Diploma/GED Difficulty w/ Childcare or Family Care: No Living arrangements: alone Spiritual care concerns: No Anes - Eval Final PreProcedure Day of Procedure 05/16/24 12:33 Patient weight: overweight Heart: regular rate and rhythm Lungs: clear to auscultation and normal air movement Airway: Mallampati scale class II and other (upper and lower dentures) Neurological: alert and oriented Last oral intake: >/= 8 hours ASA classification: III Emergent: no Anesthetic plan: proceed Anesthesia type and monitoring: general ETT and standard monitoring Results Review: All pre-operative results and documents have been reviewed as part of the pre- operative evaluation. Patient states smoking 1ppd for 7 years when she was younger, quit when she was 25. Hx of liver cancer in 2016 in remission. Informed Consent: The patient's anesthetic plan and its attendant risks and benefits were discussed with the patient/family/POA. Questions were solicited and answers provided to the satisfaction of the patient/family/POA.
--- NOTE | 2024-05-16 12:45 | WPDHPUPDATE1 ---
History and Physical Update Update Date/Time: 05/16/24 12:45 History and Physical has been reviewed, including an updated exam of the patient. There are NO changes in the patient's condition. Risks, benefits, and alternatives have been discussed and questions answered. Patient agrees to proceed with procedure.
[2024-05-16 12:52] LABS: Glucose Point of Care 81 mg/dl (65-105)
--- NOTE | 2024-05-16 12:53 | P.PNAN_ITS ---
Anes - Eval Final PreProcedure Day of Procedure 05/16/24 12:53 Patient weight: overweight Heart: regular rate and rhythm Lungs: clear to auscultation Airway: Mallampati scale class II and special considerations (Upper and lower dentures. ) Neurological: alert and oriented Last oral intake: >/= 8 hours ASA classification: III Emergent: no Anesthetic plan: proceed Anesthesia type and monitoring: general ETT Results Review: All pre-operative results and documents have been reviewed as part of the pre- operative evaluation. Mechanical fall from ground level while carrying her dog. ECHO w nml LVEF, mild . Ex smoker. Overall very good functional status prior to this injury and fall. Informed Consent: The patient's anesthetic plan and its attendant risks and benefits were discussed with the patient/family/POA. Questions were solicited and answers provided to the satisfaction of the patient/family/POA.
[2024-05-16] MEDS: VANCOMYCIN 1,250 MG/NS 250 ML 1,250 MG/250 ML BAG 166.67 MG IVPB (13:00)
[2024-05-16] MEDS: ceFAZolin 2 GM/D5W 50 ML 2 GM/50 ML BAG IVPB ×2 (13:05→20:36)
[2024-05-16 14:22] LABS: Glucose Point of Care 95 mg/dl (65-105)
--- NOTE | 2024-05-16 14:36 | W.PM.PROC2 ---
Procedure Note - Detailed Date of Procedure 05/16/24 Pre-op Diagnosis Right femoral neck fracture Post-op Diagnosis Same Procedure Performed Bipolar Hip Replacement Surgeon Lei Balbuena MD Anesthesia General Indications Hip Fracture Description of Procedure Patient brought to operating room #3. A general anesthetic was administered. She was turned on the operating table withg the right hip up a longitudinal incision made after sterile prep and drape. Dissection carried down to the fascia the fascia split. I then preceded to dissect the anterior aspect of the gluteus medius off the femur leaving a sleeve with the extension of the vastus medialis. This gave excellent exposure of the hip fracture. The femoral neck was cut a fingerbreadth above the lesser trochanter. The femoral head was removed and measured 47 to 48 millimeters. A 47 millimeter Bipolar head was chosen. I reamed and broached to accept a #5. Femoral component. This was impacted into place with +1.5 head and a 47 millimeter bipolar component. This gave excellent alignment fixation and stability. The wounds irrigated hemostasis obtained closed 5. Ethibond 2. Vicryl 2-0 Vicryl and jennie sterile dressing applied patient tolerated procedure well and left the operating room satisfactory condition. Implants J&J Estimated Blood Loss 500 Drains No Complications No immediate complications Condition Stable Disposition PACU [facility] Billing Surgery - Charge Forward: Surgery Billing ([id number] Bipolar Hemiarthroplasty)
[2024-05-16 15:22] LABS: Glucose Point of Care 109 mg/dl (65-105)
[2024-05-16] MEDS: SENNA/DOCUSATE SODIUM TABLET 2 TAB PO (16:51)
[2024-05-16] MEDS: SODIUM CHLORIDE 0.9% IV 1,000 ML 125 ML IV CONT ×2 (16:51→19:55)
[2024-05-16] MEDS: HYDROcodone/acetaminophen (*CRX) 7.5-325 MG TABLET 1 TAB PO (16:51)
[2024-05-16] MEDS: HYDROmorphone HCL INJ (*CRX) 1 MG/ML SYR IV PUSH ×2 (19:50→23:45)
[2024-05-16 21:36] LABS: Glucose Point of Care 150 mg/dl (65-105)
[2024-05-17 04:35] VITALS: BP 142/53; PULSE 101; RESP 20; TEMP 37.1; O2SAT 94
[2024-05-17] MEDS: HYDROcodone/acetaminophen (*CRX) 7.5-325 MG TABLET 1 TAB PO ×2 (05:28→09:51)
[2024-05-17] MEDS: ceFAZolin 2 GM/D5W 50 ML 2 GM/50 ML BAG IVPB ×2 (05:29→13:45)
[2024-05-17 06:37] LABS: Anion Gap 2 mmol/L (4-12); Blood Urea Nitrogen 19 mg/dL (7-17); Calcium 7.8 mg/dL (8.4-10.2); Carbon Dioxide 27 mmol/L (22-30); Chloride 104 mmol/L (98-107); Estimated CRCL calculation 42 ml/min; Estimated Glomerular Filt Rate 60; Glucose 176 mg/dL (65-110); Potassium 4.6 mmol/L (3.4-5.0); Sodium 133 mmol/L (137-145)
[2024-05-17] MEDS: HYDROmorphone HCL INJ (*CRX) 1 MG/ML SYR IV PUSH ×2 (07:22→11:47)
[2024-05-17] MEDS: CYCLOBENZAPRINE HCL 10 MG TABLET PO (09:51)
[2024-05-17] MEDS: SENNA/DOCUSATE SODIUM TABLET 2 TAB PO ×2 (09:51→16:41)
[2024-05-17] MEDS: CELECOXIB 200 MG CAPSULE PO (09:51)
[2024-05-17 10:22] VITALS: BP 123/48; PULSE 92; RESP 16; TEMP 36.8; O2SAT 92
[2024-05-17 10:53] LABS: Basophils Percent Auto 0.6 % (0.2-1.2); Eosinophils Absolute Auto 0.1 K/mm3 (0-0.3); Eosinophils Percent Auto 1.2 % (0-4.4); Hematocrit 26.2 % (37.0-47.0); Hemoglobin 8.4 g/dL (12.0-15.0); Immature Granulocyte Absolute 0.02 K/mm3 (0.00-0.031); Immature Granulocyte Percent A 0.4 % (0-0.5); Lymphocytes Absolute Auto 0.59 K/mm3 (0.9-3.2); Lymphocytes Percent Auto 11.5 % (18.3-44.2); Mean Corpuscular HGB Conc 32.1 g/dl (32-36); Mean Corpuscular Hemoglobin 30.8 pg (26-34); Mean Platelet Volume 11.6 fl (7.4-10.4); Monocytes Absolute Auto 0.5 K/mm3 (0.1-0.6); Monocytes Percent Auto 9.7 % (2.6-8.5); Neutrophils Percent Auto 76.6 % (45.5-73.1); Platelet Count Result 104 k/mm3 (150-375); Red Blood Count 2.73 M/mm3 (4.2-5.4); Red Cell Distribution Width 15.7 % (11.5-14.5); White Blood Count 5.2 K/mm3 (4.5-10.0)
[2024-05-17] MEDS: polyethylene glycoL 3350 17 GM POWD.PACK PO (11:48)
[2024-05-17] MEDS: SODIUM CHLORIDE 0.9% IV 1,000 ML 125 ML IV CONT (11:52)
[2024-05-17] MEDS: HYDROcodone/acetaminophen (*CRX) 10-325 MG TABLET 1 TAB PO ×2 (14:00→18:18)
[2024-05-17 14:22] VITALS: BP 119/50; PULSE 99; RESP 18; TEMP 37.3; O2SAT 97
--- NOTE | 2024-05-17 14:25 | P.PNIM_ITS ---
Progress Note: A&P Assessment and Plan (1) Closed fracture of neck of right femur: Qualifiers: Encounter type: initial encounter Qualified Code(s): S72.001A - Fracture of unspecified part of neck of right femur, initial encounter for cl osed fracture Code(s): S72.001A - Fracture of unspecified part of neck of right femur, initial encounter for closed fracture Status: Acute Assessment and Plan: Status post mechanical fall resulting in right hip fracture. * POD 1 bipolar hip replacement * DVT prophylaxis, pain management per Ortho * PT OT will evaluate after surgery * Chanda hose ordered * Patient will likely require acute rehab versus SNF versus swing bed * She is having increased pain to her right knee. She always has pain that she says is a 9/10. Her right knee is swollen and suspect inflammation contributing. Less concerned for fracture but will obtain an x-ray to evaluate. (2) Fall from ground level: Code(s): W18.30XA - Fall on same level, unspecified, initial encounter Status: Acute Assessment and Plan: * Fall precaution * PT OT consult (3) Diastolic dysfunction: Code(s): I51.89 - Other ill-defined heart diseases Status: Acute Assessment and Plan: Patient has a history of diastolic dysfunction. Echo from 01/2023 shows LV systolic function normal with an EF estimated 65-70%, LV diastolic dysfunction is present with moderate AV sclerosis and stenosis. Mild pulmonary hypertension with an estimated PA systolic pressure of 43 mm Hg. She has chronic lower extremity edema: left greater than right. * Patient appears to be on propranolol 20 mg b.i.d., aspirin 81 mg daily. She follows with Dr. Mckeon. 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 * strict I&O * daily weights * low sodium, dm diet after surgery (4) Diabetes: Code(s): E11.9 - Type 2 diabetes mellitus without complications Status: Acute Assessment and Plan: Hemoglobin 5.2% in 12/2023. Patient takes glimepiride daily. * Hold oral diabetes while inpatient * AC/HS accu checks * low dose SSI, hypoglycemia protocol Subjective Date/time seen: 05/17/24 14:25 Interval history: No acute events overnight. She is having a lot of pain to her right hip and knee. She worked with therapy this morning. Review of Systems Review of Systems: All systems reviewed & are unremarkable except as noted in HPI and below Exam Narrative: General: appears comfortable, in no acute distress Respiratory: breathing is unlabored with even chest rise/fall, lungs are clear without wheezing, rhonchi, and crackles Cardiovascular: Rate and rhythm regular, normal s1s2, no murmur Abdomen: Soft, round, non-tender, active bowel sounds Extremities: No cyanosis, trace bilateral lower extremity edema, no clubbing. Pulses 2/2. Neuro: A&O x 4, flat affect Skin: Warm, dry, intact. Right hip incision with surgical island dressing is clean, dry, and intact. Objective Data Vital Signs Vital Signs: Vital Signs - 24 hr 05/16/24 15:15 05/16/24 15:30 05/16/24 15:45 Temperature 97.3 F L Pulse Rate 90 88 84 Respiratory Rate 16 14 15 Blood Pressure 166/62 H 162/64 H 159/63 H Pulse Oximetry 100 100 100 Oxygen Delivery Simple Face Mask Simple Face Mask Room Air Oxygen Flow Rate 8 8 05/16/24 16:00 05/16/24 16:15 05/16/24 16:23 Temperature 97.9 F Pulse Rate 88 87 85 Respiratory Rate 15 14 12 Blood Pressure 141/61 H 143/64 H 151/63 H Pulse Oximetry 94 94 95 Oxygen Delivery Room Air Room Air Room Air Oxygen Flow Rate 05/16/24 16:37 05/16/24 16:52 05/16/24 17:22 Temperature 96.9 F L 96.9 F L 96.9 F L Pulse Rate 88 88 88 Respiratory Rate 18 18 18 Blood Pressure 120/45 L 120/56 L 135/78 Pulse Oximetry 96 96 96 Oxygen Delivery Oxygen Flow Rate 05/16/24 18:22 05/16/24 21:25 05/16/24 23:55 Temperature 96.9 F L 98.4 F 99.7 F H Pulse Rate 88 91 99 Respiratory Rate 18 18 20 Blood Pressure 120/55 L 135/56 L 122/50 L Pulse Oximetry 98 96 93 Oxygen Delivery Oxygen Flow Rate 05/17/24 04:35 05/17/24 10:22 Temperature 98.8 F 98.3 F Pulse Rate 101 H 92 Respiratory Rate 20 16 Blood Pressure 142/53 H 123/48 L Pulse Oximetry 94 92 Oxygen Delivery Oxygen Flow Rate Intake/Output Intake/Output: Intake & Output 05/14/24 05/15/24 05/16/24 05/17/24 23:59 23:59 23:59 23:59 Intake Total 2613.3 1390 Output Total 150 550 Balance 2463.3 840 Meds/Results Medications: Active Medications Generic Name Dose Route Start Last Admin Trade Name Freq PRN Reason Stop Dose Admin Hydrocodone Bitart/Acetaminophen 1 tab 05/16/24 16:37 Hydrocodone/Acetaminophen (*Crx) 5-325 Mg Tablet PO Q4H PRN Pain Rated 4-6 Hydrocodone Bitart/Acetaminophen 1 tab 05/17/24 12:13 05/17/24 14:00 Hydrocodone/Acetaminophen (*Crx) 10-325 Mg Tablet PO 1 tab Q4H PRN Administration Pain Rated 7-10 Celecoxib 200 mg 05/17/24 09:00 05/17/24 09:51 Celecoxib 200 Mg Capsule PO 200 mg DAILY JOSE Administration Cyclobenzaprine HCl 10 mg 05/16/24 16:37 05/17/24 09:51 Cyclobenzaprine Hcl 10 Mg Tablet PO 10 mg Q8H PRN Administration Muscle Spasm Hydromorphone HCl 1 mg 05/16/24 16:37 05/17/24 11:47 Hydromorphone Hcl Inj (*Crx) 1 Mg/Ml Syr IV PUSH 1 mg Q2H PRN Administration Breakthrough Pain Rated 7-10 or NPO Hydromorphone HCl 0.5 mg 05/16/24 16:37 Hydromorphone Hcl Inj (*Crx) 1 Mg/Ml Syr IV PUSH Q2H PRN Breakthrough Pain Rated 4-6 or NPO Ibuprofen 800 mg in 200 mls @ 400 mls/hr 05/16/24 16:37 Caldolor 800 Mg/200 Ml IVPB Q6H PRN Breakthrough Pain Rated 1-3 or NPO Sodium Chloride 1,000 mls @ 75 mls/hr 05/16/24 16:37 05/17/24 11:52 Normal Saline Iv IV CONT 125 mls/hr .[id number] JOSE Administration Ketorolac Tromethamine 1 drop 05/17/24 13:40 Ketorolac 0.5% Op Soln 5 Ml Bottle EACH EYE TID JOSE Moxifloxacin HCl 1 drop 05/17/24 13:40 Moxifloxacin Hcl 0.5% 3 Ml Ophth Soln EACH EYE Q12H [facility] Naloxone HCl 0.1 mg 05/16/24 16:37 Naloxone Hcl 0.4 Mg/Ml Vial IV PUSH Q2M PRN Opiate Reversal Ondansetron HCl 4 mg 05/16/24 16:37 Ondansetron Inj 4 Mg/2 Ml Vial IV PUSH Q4H PRN Nausea And Vomiting Polyethylene Glycol 17 gm 05/17/24 09:00 05/17/24 11:48 Polyethylene Glycol 3350 17 Gm Powd.Pack PO 17 gm QAM [facility] Administration Rivaroxaban 10 mg 05/16/24 22:00 Rivaroxaban 10 Mg Tablet PO DAILY@1700 [facility] Senna/Docusate Sodium 2 tab 05/16/24 17:00 05/17/24 09:51 Senna/Docusate Sodium Tablet PO 2 tab BID [facility] Administration Tramadol HCl 50 mg 05/16/24 16:37 Tramadol Hcl (*Crx) 50 Mg Tablet PO Q4H PRN Pain Rated 1-3 Radiology Results: ITS Impressions Chest X-Ray 05/15/24 23:33 IMPRESSION: No focal infiltrate or effusion. Hip/Pelvis X-Ray 05/15/24 23:33 IMPRESSION: Acute right femoral neck fracture with slight impaction and overriding of fracture fragment Intraoperative X-Ray 05/16/24 15:27 IMPRESSION: 1. Expected appearance during right hip hemiarthroplasty. Labs Labs: Laboratory Results - last 24 hr 05/16/24 05/16/24 05/17/24 15:20 21:24 06:07 WBC 5.2 RBC 2.73 L Hgb 8.4 L Hct 26.2 L MCV 96.0 MCH 30.8 MCHC 32.1 RDW 15.7 H Plt Count 104 L MPV 11.6 H Immature Gran % (Auto) 0.4 Neut % (Auto) 76.6 H Lymph % (Auto) 11.5 L [place] % (Auto) 9.7 H Eos % (Auto) 1.2 Baso % (Auto) 0.6 Lymph # (Auto) 0.59 L [place] # (Auto) 0.5 Eos # (Auto) 0.1 Baso # (Auto) 0.0 Abs Immat Gran (auto) 0.02 Absolute Neuts (auto) 4.0 Absolute Nucleated RBC 0.000 Nucleated RBC % 0.0 Sodium 133 L Potassium 4.6 Chloride 104 Carbon Dioxide 27 Anion Gap 2 L BUN 19 H Creatinine 0.90 Estim Creat Clear Calc 42 Estimated GFR 60 Glucose 176 H POC Capillary Glucose 109 H 150 H Calcium 7.8 L Quality VTE Prophylaxis VTE prophylaxis: mechanical ordered
[2024-05-17] MEDS: MOXIFLOXACIN HCL 0.5% 3 ML OPHTH SOLN 1 DROP EACH EYE (16:42)
[2024-05-17] MEDS: KETOROLAC 0.5% OP SOLN 5 ML BOTTLE 1 DROP EACH EYE (16:42)
[2024-05-17 18:22] VITALS: BP 116/53; PULSE 101; RESP 16; TEMP 36.8; O2SAT 98
[2024-05-17] MEDS: SODIUM CHLORIDE 0.9% IV 1,000 ML 75 ML IV CONT (19:41)
[2024-05-17 21:24] VITALS: BP 145/49; PULSE 93; RESP 12; TEMP 36.5; O2SAT 98
[2024-05-18] VITALS (7 sets, daily range): BP systolic 126–141; BP diastolic 39–83; PULSE 84–104; RESP 14–16; TEMP 36.4–37.1; O2SAT 95–100
[2024-05-18] MEDS: HYDROcodone/acetaminophen (*CRX) 10-325 MG TABLET 1 TAB PO ×5 (00:17→21:29)
[2024-05-18] MEDS: SODIUM CHLORIDE 0.9% IV 1,000 ML 75 ML IV CONT (00:17)
[2024-05-18] MEDS: MOXIFLOXACIN HCL 0.5% 3 ML OPHTH SOLN 1 DROP EACH EYE ×2 (00:18→20:07)
--- NOTE | 2024-05-18 07:22 | P.PNIM_ITS ---
Progress Note: A&P Assessment and Plan (1) Closed fracture of neck of right femur: Qualifiers: Encounter type: initial encounter Qualified Code(s): S72.001A - Fracture of unspecified part of neck of right femur, initial encounter for cl osed fracture Code(s): S72.001A - Fracture of unspecified part of neck of right femur, initial encounter for closed fracture Status: Acute Assessment and Plan: Status post mechanical fall resulting in right hip fracture. * POD 2 bipolar hip replacement * DVT prophylaxis, pain management per Ortho. Did increase her norco offering back to 10 mg as this was her home dose * PT OT ordered * Chanda hose ordered * Patient will likely discharge to [facility] bed on Monday * She is having increased pain to her right knee. She always has pain that she says is a 9/10. Her right knee is swollen and suspect inflammation contributing. 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 (2) Fall from ground level: Code(s): W18.30XA - Fall on same level, unspecified, initial encounter Status: Acute Assessment and Plan: * Fall precaution * PT OT consult (3) Diastolic dysfunction: Code(s): I51.89 - Other ill-defined heart diseases Status: Acute Assessment and Plan: Patient has a history of diastolic dysfunction. Echo from 01/2023 shows LV systolic function normal with an EF estimated 65-70%, LV diastolic dysfunction is present with moderate AV sclerosis and stenosis. Mild pulmonary hypertension with an estimated PA systolic pressure of 43 mm Hg. She has chronic lower extremity edema: left greater than right. * Patient appears to be on propranolol 20 mg b.i.d., aspirin 81 mg daily. She follows with Dr. Mckeon. * can consider Lasix if swelling increases * CHANDA hose for bilateral lower extremity edema * Recommended patient discuss starting SLGT2 with her water conservation specialist given current DM. * strict I&O * daily weights * low sodium, dm diet after surgery (4) Diabetes: Code(s): E11.9 - Type 2 diabetes mellitus without complications Status: Acute Assessment and Plan: Hemoglobin 5.2% in 12/2023. Patient takes glimepiride daily. * Hold oral diabetes while inpatient * AC/HS accu checks * low dose SSI, hypoglycemia protocol Subjective Date/time seen: 05/18/24 07:22 Interval history: No acute events overnight. She says her pain is about the same. She denies dizziness or shortness of breath. Her hemoglobin is low today at 6.8 g/dl and she is slightly tachycardic. She feels like she has to have a bowel movement but had not been able pass a stool yet. She is still passing small amounts of gas. Review of Systems Review of Systems: All systems reviewed & are unremarkable except as noted in HPI and below Exam Narrative: General: appears comfortable, in no acute distress Respiratory: breathing is unlabored with even chest rise/fall, lungs are clear without wheezing, rhonchi, and crackles Cardiovascular: Rate and rhythm regular, normal s1s2, no murmur Abdomen: Soft, round, non-tender, active bowel sounds Extremities: No cyanosis, trace bilateral lower extremity edema, no clubbing. Pulses 2/2. Neuro: A&O x 4, flat affect Skin: Warm, dry, intact. Right hip incision with surgical island dressing is clean, dry, and intact. Objective Data Vital Signs Vital Signs: Vital Signs - 24 hr 05/17/24 10:22 05/17/24 14:03 05/17/24 14:22 Temperature 98.3 F 99.1 F Pulse Rate 92 99 Respiratory Rate 16 18 Blood Pressure 123/48 L 119/50 L Pulse Oximetry 92 97 Oxygen Delivery Room Air 05/17/24 18:22 05/17/24 20:00 05/17/24 21:24 Temperature 98.2 F 97.7 F Pulse Rate 101 H 93 Respiratory Rate 16 12 Blood Pressure 116/53 L 145/49 H Pulse Oximetry 98 98 Oxygen Delivery Room Air 05/18/24 05:54 Temperature 97.5 F L Pulse Rate 88 Respiratory Rate 16 Blood Pressure 126/55 L Pulse Oximetry 95 Oxygen Delivery Intake/Output Intake/Output: Intake & Output 05/15/24 05/16/24 05/17/24 05/18/24 23:59 23:59 23:59 23:59 Intake Total 2613.3 3485.1 695 Output Total 150 550 Balance 2463.3 2935.1 695 Meds/Results Medications: Active Medications Generic Name Dose Route Start Last Admin Trade Name Freq PRN Reason Stop Dose Admin Hydrocodone Bitart/Acetaminophen 1 tab 05/16/24 16:37 Hydrocodone/Acetaminophen (*Crx) 5-325 Mg Tablet PO Q4H PRN Pain Rated 4-6 Hydrocodone Bitart/Acetaminophen 1 tab 05/17/24 12:13 05/18/24 00:17 Hydrocodone/Acetaminophen (*Crx) 10-325 Mg Tablet PO 1 tab Q4H PRN Administration Pain Rated 7-10 Celecoxib 200 mg 05/17/24 09:00 05/17/24 09:51 Celecoxib 200 Mg Capsule PO 200 mg DAILY JOSE Administration Cyclobenzaprine HCl 10 mg 05/16/24 16:37 05/17/24 09:51 Cyclobenzaprine Hcl 10 Mg Tablet PO 10 mg Q8H PRN Administration Muscle Spasm Hydromorphone HCl 1 mg 05/16/24 16:37 05/17/24 11:47 Hydromorphone Hcl Inj (*Crx) 1 Mg/Ml Syr IV PUSH 1 mg Q2H PRN Administration Breakthrough Pain Rated 7-10 or NPO Hydromorphone HCl 0.5 mg 05/16/24 16:37 Hydromorphone Hcl Inj (*Crx) 1 Mg/Ml Syr IV PUSH Q2H PRN Breakthrough Pain Rated 4-6 or NPO Ibuprofen 800 mg in 200 mls @ 400 mls/hr 05/16/24 16:37 Caldolor 800 Mg/200 Ml IVPB Q6H PRN Breakthrough Pain Rated 1-3 or NPO Sodium Chloride 1,000 mls @ 75 mls/hr 05/16/24 16:37 05/18/24 00:17 Normal Saline Iv IV CONT 75 mls/hr .[id number] JOSE Administration Ketorolac Tromethamine 1 drop 05/17/24 13:40 05/17/24 16:42 Ketorolac 0.5% Op Soln 5 Ml Bottle EACH EYE 1 drop TID JOSE Administration Moxifloxacin HCl 1 drop 05/17/24 13:40 05/18/24 00:18 Moxifloxacin Hcl 0.5% 3 Ml Ophth Soln EACH EYE 1 drop Q12H JOSE Administration Naloxone HCl 0.1 mg 05/16/24 16:37 Naloxone Hcl 0.4 Mg/Ml Vial IV PUSH Q2M PRN Opiate Reversal Ondansetron HCl 4 mg 05/16/24 16:37 Ondansetron Inj 4 Mg/2 Ml Vial IV PUSH Q4H PRN Nausea And Vomiting Polyethylene Glycol 17 gm 11/15/24 09:00 05/17/24 11:48 Polyethylene Glycol 3350 17 Gm Powd.Pack PO 17 gm QAM [facility] Administration Rivaroxaban 10 mg 05/16/24 22:00 Rivaroxaban 10 Mg Tablet PO DAILY@1700 [facility] Senna/Docusate Sodium 2 tab 05/16/24 17:00 05/17/24 16:41 Senna/Docusate Sodium Tablet PO 2 tab BID [facility] Administration Tramadol HCl 50 mg 05/16/24 16:37 Tramadol Hcl (*Crx) 50 Mg Tablet PO Q4H PRN Pain Rated 1-3 Radiology Results: ITS Impressions Chest X-Ray 05/15/24 23:33 IMPRESSION: No focal infiltrate or effusion. Hip/Pelvis X-Ray 05/15/24 23:33 IMPRESSION: Acute right femoral neck fracture with slight impaction and overriding of fracture fragment Intraoperative X-Ray 05/16/24 15:27 IMPRESSION: 1. Expected appearance during right hip hemiarthroplasty. Knee X-Ray 05/17/24 14:59 IMPRESSION: 1. Tricompartmental osteoarthritis, severe in the medial compartment and small knee joint effusion. Labs Labs: Laboratory Results - last 24 hr 05/17/24 06:07 WBC 5.2 RBC 2.73 L Hgb 8.4 L Hct 26.2 L MCV 96.0 MCH 30.8 MCHC 32.1 RDW 15.7 H Plt Count 104 L MPV 11.6 H Immature Gran % (Auto) 0.4 Neut % (Auto) 76.6 H Lymph % (Auto) 11.5 L [place] % (Auto) 9.7 H Eos % (Auto) 1.2 Baso % (Auto) 0.6 Lymph # (Auto) 0.59 L [place] # (Auto) 0.5 Eos # (Auto) 0.1 Baso # (Auto) 0.0 Abs Immat Gran (auto) 0.02 Absolute Neuts (auto) 4.0 Absolute Nucleated RBC 0.000 Nucleated RBC % 0.0 Quality VTE Prophylaxis VTE prophylaxis: mechanical ordered
--- NOTE | 2024-05-18 07:39 | PM.PNORT ---
Progress Note: A&P Assessment and Plan (1) Closed fracture of neck of right femur: Qualifiers: Encounter type: initial encounter Qualified Code(s): S72.001A - Fracture of unspecified part of neck of right femur, initial encounter for closed fracture Code(s): S72.001A - Fracture of unspecified part of neck of right femur, initial encounter for closed fracture Status: Acute Assessment and Plan: S/P Bioolar for hip Fracture. Will Mobilize. Awaiting placement. Subjective Subjective Date/Time Seen: 05/18/24 07:39 Post Op day: 2 Principal diagnosis: Right Hip Fracture Review of Systems Review of Systems: All systems reviewed & are unremarkable except as noted in HPI and below Exam Narrative: Dressing intact. Wiggles Toes Resp: Effort & Inspection: normal respiratory effort Cardio: Rate: regular rate Rhythm: regular rhythm Objective Data Vital Signs Vital Signs: Vital Signs - 24 hr 05/17/24 10:22 05/17/24 14:03 05/17/24 14:22 Temperature 98.3 F 99.1 F Pulse Rate 92 99 Respiratory Rate 16 18 Blood Pressure 123/48 L 119/50 L Pulse Oximetry 92 97 Oxygen Delivery Room Air 05/17/24 18:22 05/17/24 20:00 05/17/24 21:24 Temperature 98.2 F 97.7 F Pulse Rate 101 H 93 Respiratory Rate 16 12 Blood Pressure 116/53 L 145/49 H Pulse Oximetry 98 98 Oxygen Delivery Room Air 05/18/24 05:54 Temperature 97.5 F L Pulse Rate 88 Respiratory Rate 16 Blood Pressure 126/55 L Pulse Oximetry 95 Oxygen Delivery Intake/Output Intake/Output: Intake & Output 05/15/24 05/16/24 05/17/24 05/18/24 23:59 23:59 23:59 23:59 Intake Total 2613.3 3485.1 695 Output Total 150 550 Balance 2463.3 2935.1 695 Meds/Results Medications: Active Medications Generic Name Dose Route Start Last Admin Trade Name Freq PRN Reason Stop Dose Admin Hydrocodone Bitart/Acetaminophen 1 tab 05/16/24 16:37 Hydrocodone/Acetaminophen (*Crx) 5-325 Mg Tablet PO Q4H PRN Pain Rated 4-6 Hydrocodone Bitart/Acetaminophen 1 tab 05/17/24 12:13 05/18/24 07:37 Hydrocodone/Acetaminophen (*Crx) 10-325 Mg Tablet PO 1 tab Q4H PRN Administration Pain Rated 7-10 Celecoxib 200 mg 05/17/24 09:00 05/17/24 09:51 Celecoxib 200 Mg Capsule PO 200 mg DAILY JOSE Administration Cyclobenzaprine HCl 10 mg 05/16/24 16:37 05/17/24 09:51 Cyclobenzaprine Hcl 10 Mg Tablet PO 10 mg Q8H PRN Administration Muscle Spasm Hydromorphone HCl 1 mg 05/16/24 16:37 05/17/24 11:47 Hydromorphone Hcl Inj (*Crx) 1 Mg/Ml Syr IV PUSH 1 mg Q2H PRN Administration Breakthrough Pain Rated 7-10 or NPO Hydromorphone HCl 0.5 mg 05/16/24 16:37 Hydromorphone Hcl Inj (*Crx) 1 Mg/Ml Syr IV PUSH Q2H PRN Breakthrough Pain Rated 4-6 or NPO Ibuprofen 800 mg in 200 mls @ 400 mls/hr 05/16/24 16:37 Caldolor 800 Mg/200 Ml IVPB Q6H PRN Breakthrough Pain Rated 1-3 or NPO Sodium Chloride 1,000 mls @ 75 mls/hr 05/16/24 16:37 05/18/24 00:17 Normal Saline Iv IV CONT 75 mls/hr .[id number] JOSE Administration Ketorolac Tromethamine 1 drop 05/17/24 13:40 05/17/24 16:42 Ketorolac 0.5% Op Soln 5 Ml Bottle EACH EYE 1 drop TID JOSE Administration Moxifloxacin HCl 1 drop 05/17/24 13:40 05/18/24 00:18 Moxifloxacin Hcl 0.5% 3 Ml Ophth Soln EACH EYE 1 drop Q12H JOSE Administration Naloxone HCl 0.1 mg 05/16/24 16:37 Naloxone Hcl 0.4 Mg/Ml Vial IV PUSH Q2M PRN Opiate Reversal Ondansetron HCl 4 mg 05/16/24 16:37 Ondansetron Inj 4 Mg/2 Ml Vial IV PUSH Q4H PRN Nausea And Vomiting Polyethylene Glycol 17 gm 05/17/24 09:00 05/17/24 11:48 Polyethylene Glycol 3350 17 Gm Powd.Pack PO 17 gm QAM JOSE Administration Rivaroxaban 10 mg 05/16/24 22:00 Rivaroxaban 10 Mg Tablet PO DAILY@1700 JOSE Senna/Docusate Sodium 2 tab 05/16/24 17:00 05/17/24 16:41 Senna/Docusate Sodium Tablet PO 2 tab BID [facility] Administration Tramadol HCl 50 mg 05/16/24 16:37 Tramadol Hcl (*Crx) 50 Mg Tablet PO Q4H PRN Pain Rated 1-3 Radiology Results: ITS Impressions Chest X-Ray 05/15/24 23:33 IMPRESSION: No focal infiltrate or effusion. Hip/Pelvis X-Ray 05/15/24 23:33 IMPRESSION: Acute right femoral neck fracture with slight impaction and overriding of fracture fragment Intraoperative X-Ray 05/16/24 15:27 IMPRESSION: 1. Expected appearance during right hip hemiarthroplasty. Knee X-Ray 05/17/24 14:59 IMPRESSION: 1. Tricompartmental osteoarthritis, severe in the medial compartment and small knee joint effusion. Labs Labs: Laboratory Results - last 24 hr 05/17/24 06:07 WBC 5.2 RBC 2.73 L Hgb 8.4 L Hct 26.2 L MCV 96.0 MCH 30.8 MCHC 32.1 RDW 15.7 H Plt Count 104 L MPV 11.6 H Immature Gran % (Auto) 0.4 Neut % (Auto) 76.6 H Lymph % (Auto) 11.5 L [place] % (Auto) 9.7 H Eos % (Auto) 1.2 Baso % (Auto) 0.6 Lymph # (Auto) 0.59 L [place] # (Auto) 0.5 Eos # (Auto) 0.1 Baso # (Auto) 0.0 Abs Immat Gran (auto) 0.02 Absolute Neuts (auto) 4.0 Absolute Nucleated RBC 0.000 Nucleated RBC % 0.0
[2024-05-18 08:13] LABS: Mean Corpuscular HGB Conc 32.4 g/dl (32-36); Mean Corpuscular Hemoglobin 30.5 pg (26-34); Mean Corpuscular Volume 94.2 fl (80-100); Mean Platelet Volume 10.9 fl (7.4-10.4); Platelet Count Result 74 k/mm3 (150-375); Red Blood Count 2.23 M/mm3 (4.2-5.4); Red Cell Distribution Width 15.7 % (11.5-14.5); White Blood Count 4.3 K/mm3 (4.5-10.0)
[2024-05-18 08:27] LABS: Anion Gap 7 mmol/L (4-12); Blood Urea Nitrogen 24 mg/dL (7-17); Calcium 7.8 mg/dL (8.4-10.2); Carbon Dioxide 24 mmol/L (22-30); Chloride 102 mmol/L (98-107); Estimated CRCL calculation 42 ml/min; Estimated Glomerular Filt Rate 60; Glucose 131 mg/dL (65-110); Potassium 3.6 mmol/L (3.4-5.0); Sodium 133 mmol/L (137-145)
[2024-05-18 08:42] LABS: Hemoglobin 6.8 g/dL (12.0-15.0)
[2024-05-18] MEDS: SENNA/DOCUSATE SODIUM TABLET 2 TAB PO ×2 (10:18→17:04)
[2024-05-18] MEDS: CYCLOBENZAPRINE HCL 10 MG TABLET PO ×2 (10:18→20:06)
[2024-05-18] MEDS: polyethylene glycoL 3350 17 GM POWD.PACK PO (10:18)
[2024-05-18] MEDS: CELECOXIB 200 MG CAPSULE PO (10:18)
[2024-05-18] MEDS: KETOROLAC 0.5% OP SOLN 5 ML BOTTLE 1 DROP EACH EYE ×2 (10:19→17:05)
[2024-05-18] MEDS: SODIUM CHLORIDE 0.9% IV 250 ML 30 ML IV CONT (10:20)
[2024-05-18] MEDS: BISACODYL 10 MG SUPPOSITORY RECTAL (17:05)
[2024-05-19] VITALS (8 sets, daily range): BP systolic 128–142; BP diastolic 43–62; PULSE 82–93; RESP 16–18; TEMP 36.4–36.8; O2SAT 95–100
[2024-05-19] MEDS: HYDROcodone/acetaminophen (*CRX) 10-325 MG TABLET 1 TAB PO ×4 (01:50→21:40)
[2024-05-19 06:17] LABS: Basophils Percent Auto 0.4 % (0.2-1.2); Eosinophils Absolute Auto 0.1 K/mm3 (0-0.3); Eosinophils Percent Auto 2.5 % (0-4.4); Hematocrit 21.4 % (37.0-47.0); Immature Granulocyte Absolute 0.02 K/mm3 (0.00-0.031); Immature Granulocyte Percent A 0.7 % (0-0.5); Lymphocytes Absolute Auto 0.74 K/mm3 (0.9-3.2); Lymphocytes Percent Auto 26.6 % (18.3-44.2); Mean Corpuscular HGB Conc 32.2 g/dl (32-36); Mean Corpuscular Hemoglobin 29.9 pg (26-34); Mean Corpuscular Volume 92.6 fl (80-100); Monocytes Absolute Auto 0.3 K/mm3 (0.1-0.6); Monocytes Percent Auto 11.5 % (2.6-8.5); Neutrophils Absolute Auto 1.6 K/mm3 (1.3-6.7); Neutrophils Percent Auto 58.3 % (45.5-73.1); Platelet Count Result 73 k/mm3 (150-375); Red Blood Count 2.31 M/mm3 (4.2-5.4); Red Cell Distribution Width 17.1 % (11.5-14.5); White Blood Count 2.8 K/mm3 (4.5-10.0)
[2024-05-19 06:32] LABS: Alanine Aminotransferase 8 U/L (6-35); Albumin Level 2.3 g/dL (3.5-5.1); Alkaline Phosphatase 67 U/L (38-126); Anion Gap 4 mmol/L (4-12); Aspartate Amino Transferase 25 U/L (14-36); Bilirubin,Total 1.5 mg/dL (0.2-1.3); Blood Urea Nitrogen 22 mg/dL (7-17); Calcium 7.5 mg/dL (8.4-10.2); Carbon Dioxide 25 mmol/L (22-30); Chloride 104 mmol/L (98-107); Estimated CRCL calculation 53 ml/min; Estimated Glomerular Filt Rate > 60; Glucose 99 mg/dL (65-110); Potassium 3.3 mmol/L (3.4-5.0); Sodium 133 mmol/L (137-145)
[2024-05-19 07:12] LABS: Hemoglobin 6.9 g/dL (12.0-15.0)
[2024-05-19 07:38] LABS: Platelet Estimate Decreased (Adequate)
[2024-05-19 07:39] LABS: Anisocytosis 1+
[2024-05-19 07:40] LABS: Schistocytes None Seen
--- NOTE | 2024-05-19 08:41 | P.PNIM_ITS ---
Progress Note: A&P Assessment and Plan (1) Closed fracture of neck of right femur: Qualifiers: Encounter type: initial encounter Qualified Code(s): S72.001A - Fracture of unspecified part of neck of right femur, initial encounter for cl osed fracture Code(s): S72.001A - Fracture of unspecified part of neck of right femur, initial encounter for closed fracture Status: Acute Assessment and Plan: Status post mechanical fall resulting in right hip fracture. * POD 3 bipolar hip replacement * DVT prophylaxis, pain management per Ortho. Did increase her norco offering back to 10 mg as this was her home dose * Bowel regimen in place. She had a bowel movement 05/19 * PT OT ordered * Chanda hose ordered * Patient will likely discharge to [facility] bed on Monday * She is having increased pain to her right knee. She always has pain that she says is a 9/10. Her right knee is swollen and suspect inflammation contributing. 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 (2) Fall from ground level: Code(s): W18.30XA - Fall on same level, unspecified, initial encounter Status: Acute Assessment and Plan: * Fall precaution * PT OT consult (3) Diastolic dysfunction: Code(s): I51.89 - Other ill-defined heart diseases Status: Acute Assessment and Plan: Patient has a history of diastolic dysfunction. Echo from 01/2023 shows LV systolic function normal with an EF estimated 65-70%, LV diastolic dysfunction is present with moderate AV sclerosis and stenosis. Mild pulmonary hypertension with an estimated PA systolic pressure of 43 mm Hg. She has chronic lower extremity edema: left greater than right. * Patient appears to be on propranolol 20 mg b.i.d., aspirin 81 mg daily. She follows with Dr. Mckeon. * can consider Lasix if swelling increases * CHANDA hose for bilateral lower extremity edema * Recommended patient discuss starting SLGT2 with her clinical dietitian given current DM. * strict I&O * daily weights * low sodium, dm diet after surgery (4) Diabetes: Code(s): E11.9 - Type 2 diabetes mellitus without complications Status: Acute Assessment and Plan: Hemoglobin 5.2% in 12/2023. Patient takes glimepiride daily. * Hold oral diabetes while inpatient * AC/HS accu checks * low dose SSI, hypoglycemia protocol (5) Anemia: Code(s): D64.9 - Anemia, unspecified Status: Acute Assessment and Plan: Hemoglobin 10.7 g/dl on admission. Down to 6.8 g/dl on 05/18/24. * transfused 1 unit of pRBC on 05/18. Denies dizziness, shortness of breath. She had some tachycardia as well. * Repeat H/H today is 6.9 g/dl. Will give an additional unit of pRBC today. Expect some of the decrease is from fracture and surgery. EBL 500 ml per op note. * She does have increased ecchymosis to her right hip and thigh. Area is not tight and she has palpable pulses. If her H/H remains low then we can CT scan her to make sure she does not have a leaky vessel contributing. * Added vitamin B12, folic acid, and iron panel--obtained after a unit of blood iron is still rather low. Added ferrous sulfate BID. Subjective Date/time seen: 05/19/24 08:41 Interval history: No acute events overnight. She was able to have a bowel movement and is passing gas. She does have a persistently low H/H even after 1 unit of pRBC with positional dizziness. She feels like the pain is a little worse to her right hip. Review of Systems Review of Systems: All systems reviewed & are unremarkable except as noted in HPI and below Exam Narrative: General: appears comfortable, in no acute distress Respiratory: breathing is unlabored with even chest rise/fall, lungs are clear without wheezing, rhonchi, and crackles Cardiovascular: Rate and rhythm regular, normal s1s2, no murmur Abdomen: Soft, round, non-tender, active bowel sounds Extremities: No cyanosis, +1 bilateral lower extremity edema with increased swelling into her right thigh, no clubbing. Pulses 2/2. Neuro: A&O x 4, flat affect Skin: Warm, dry, intact. Right hip incision with surgical island dressing is clean, dry, and intact with surrounding ecchymosis that travels into her right thigh and groin. No retroperitoneal ecchymosis. Objective Data Vital Signs Vital Signs: Vital Signs - 24 hr 05/18/24 11:05 05/18/24 11:25 05/18/24 12:25 Temperature 98.7 F 98.8 F 98.7 F Pulse Rate 104 H 104 H 96 Respiratory Rate 14 14 16 Blood Pressure 136/83 131/39 L 141/46 H Pulse Oximetry 98 96 99 Oxygen Delivery 05/18/24 13:25 05/18/24 14:25 05/18/24 14:25 Temperature 98.6 F 98.5 F 98.5 F Pulse Rate 91 104 H 104 H Respiratory Rate 16 16 16 Blood Pressure 141/44 H 135/54 L 135/54 L Pulse Oximetry 100 98 98 Oxygen Delivery 05/18/24 21:08 05/18/24 20:00 05/19/24 05:44 Temperature 98.7 F 98.2 F Pulse Rate 84 82 Respiratory Rate 14 16 Blood Pressure 129/51 L 139/58 L Pulse Oximetry 99 97 Oxygen Delivery Room Air Intake/Output Intake/Output: Intake & Output 05/16/24 05/17/24 05/18/24 05/19/24 23:59 23:59 23:59 23:59 Intake Total 2613.3 3485.1 1145 200 Output Total 150 550 Balance 2463.3 2935.1 1145 200 Meds/Results Medications: Active Medications Generic Name Dose Route Start Last Admin Trade Name Freq PRN Reason Stop Dose Admin Hydrocodone Bitart/Acetaminophen 1 tab 05/16/24 16:37 Hydrocodone/Acetaminophen (*Crx) 5-325 Mg Tablet PO Q4H PRN Pain Rated 4-6 Hydrocodone Bitart/Acetaminophen 1 tab 05/17/24 12:13 05/19/24 01:50 Hydrocodone/Acetaminophen (*Crx) 10-325 Mg Tablet PO 1 tab Q4H PRN Administration Pain Rated 7-10 Celecoxib 200 mg 05/17/24 09:00 05/18/24 10:18 Celecoxib 200 Mg Capsule PO 200 mg DAILY JOSE Administration Cyclobenzaprine HCl 10 mg 05/16/24 16:37 05/18/24 20:06 Cyclobenzaprine Hcl 10 Mg Tablet PO 10 mg Q8H PRN Administration Muscle Spasm Hydromorphone HCl 1 mg 05/16/24 16:37 05/17/24 11:47 Hydromorphone Hcl Inj (*Crx) 1 Mg/Ml Syr IV PUSH 1 mg Q2H PRN Administration Breakthrough Pain Rated 7-10 or NPO Hydromorphone HCl 0.5 mg 05/16/24 16:37 Hydromorphone Hcl Inj (*Crx) 1 Mg/Ml Syr IV PUSH Q2H PRN Breakthrough Pain Rated 4-6 or NPO Ibuprofen 800 mg in 200 mls @ 400 mls/hr 05/16/24 16:37 Caldolor 800 Mg/200 Ml IVPB Q6H PRN Breakthrough Pain Rated 1-3 or NPO Sodium Chloride 250 mls @ 30 mls/hr 05/19/24 08:32 Normal Saline Iv IV CONT 05/19/24 16:51 .[id number] STA Ketorolac Tromethamine 1 drop 05/17/24 13:40 05/18/24 17:05 Ketorolac 0.5% Op Soln 5 Ml Bottle EACH EYE 1 drop TID JOSE Administration Moxifloxacin HCl 1 drop 05/17/24 13:40 05/18/24 20:07 Moxifloxacin Hcl 0.5% 3 Ml Ophth Soln EACH EYE 1 drop Q12H JOSE Administration Naloxone HCl 0.1 mg 05/16/24 16:37 Naloxone Hcl 0.4 Mg/Ml Vial IV PUSH Q2M PRN Opiate Reversal Ondansetron HCl 4 mg 05/16/24 16:37 Ondansetron Inj 4 Mg/2 Ml Vial IV PUSH Q4H PRN Nausea And Vomiting Polyethylene Glycol 17 gm 05/17/24 09:00 05/18/24 10:18 Polyethylene Glycol 3350 17 Gm Powd.Pack PO 17 gm QAM JOSE Administration Rivaroxaban 10 mg 05/16/24 22:00 Rivaroxaban 10 Mg Tablet PO DAILY@1700 JOSE Senna/Docusate Sodium 2 tab 05/16/24 17:00 05/18/24 17:04 Senna/Docusate Sodium Tablet PO 2 tab BID JOSE Administration Tramadol HCl 50 mg 05/16/24 16:37 Tramadol Hcl (*Crx) 50 Mg Tablet PO Q4H PRN Pain Rated 1-3 Radiology Results: ITS Impressions Chest X-Ray 05/15/24 23:33 IMPRESSION: No focal infiltrate or effusion. Hip/Pelvis X-Ray 05/15/24 23:33 IMPRESSION: Acute right femoral neck fracture with slight impaction and overriding of fracture fragment Intraoperative X-Ray 05/16/24 15:27 IMPRESSION: 1. Expected appearance during right hip hemiarthroplasty. Knee X-Ray 05/17/24 14:59 IMPRESSION: 1. Tricompartmental osteoarthritis, severe in the medial compartment and small knee joint effusion. Labs Labs: Laboratory Results - last 24 hr 05/15/24 05/18/24 05/19/24 23:13 07:33 05:56 WBC 4.3 L 2.8 L RBC 2.23 L 2.31 L Hgb 6.8 L* 6.9 L* Hct 21.0 L 21.4 L MCV 94.2 92.6 MCH 30.5 29.9 MCHC 32.4 32.2 RDW 15.7 H 17.1 H Plt Count 74 L 73 L MPV 10.9 H 11.0 H Immature Gran % (Auto) 0.7 H Neut % (Auto) 58.3 Lymph % (Auto) 26.6 [place] % (Auto) 11.5 H Eos % (Auto) 2.5 Baso % (Auto) 0.4 Lymph # (Auto) 0.74 L [place] # (Auto) 0.3 Eos # (Auto) 0.1 Baso # (Auto) 0.0 Abs Immat Gran (auto) 0.02 Absolute Neuts (auto) 1.6 Absolute Nucleated RBC 0.000 Nucleated RBC % 0.0 Platelet Estimate Decreased % Immature Plt Fraction 4.0 4.0 Anisocytosis 1+ Schistocytes None seen Sodium 133 L Potassium 3.3 L Chloride 104 Carbon Dioxide 25 Anion Gap 4 BUN 22 H Creatinine 0.70 Estim Creat Clear Calc 53 Estimated GFR > 60 Glucose 99 Calcium 7.5 L Total Bilirubin 1.5 H AST 25 ALT 8 Alkaline Phosphatase 67 Total Protein 5.0 L Albumin 2.3 L Blood Type A Positive Antibody Screen Negative Crossmatch See Detail Quality VTE Prophylaxis VTE prophylaxis: mechanical ordered
[2024-05-19 09:24] LABS: Iron 19 ug/dL (37-170)
[2024-05-19 09:25] LABS: Immature Reticulocyte Fraction 23.1 % (3.0-15.9); Reticulocyte Hemoglobin Conten 33.7 pg (28.2-36.6); Reticulocytes Absolute 0.07 10^6/uL (0.02-0.10)
[2024-05-19 09:29] LABS: Magnesium 1.9 mg/dL (1.6-2.3)
[2024-05-19 09:33] LABS: Percent Iron Saturation 8 % (20-50)
[2024-05-19] MEDS: CELECOXIB 200 MG CAPSULE PO (09:36)
[2024-05-19] MEDS: SENNA/DOCUSATE SODIUM TABLET 2 TAB PO ×2 (09:36→17:39)
[2024-05-19] MEDS: KETOROLAC 0.5% OP SOLN 5 ML BOTTLE 1 DROP EACH EYE ×3 (09:37→17:40)
[2024-05-19] MEDS: POTASSIUM CHLORIDE 20 MEQ ER TABLET 40 MEQ PO (09:42)
[2024-05-19] MEDS: SODIUM CHLORIDE 0.9% IV 250 ML 30 ML IV CONT (11:14)
[2024-05-19] MEDS: MOXIFLOXACIN HCL 0.5% 3 ML OPHTH SOLN 1 DROP EACH EYE ×2 (12:44→21:40)
[2024-05-19 17:29] LABS: Hematocrit 27.5 % (37.0-47.0); Hemoglobin 8.9 g/dL (12.0-15.0)
[2024-05-19] MEDS: FERROUS SULFATE 325 MG TABLET DR PO (17:39)
[2024-05-20] MEDS: HYDROcodone/acetaminophen (*CRX) 10-325 MG TABLET 1 TAB PO ×4 (03:25→20:57)
[2024-05-20 05:53] VITALS: BP 131/47; PULSE 82; RESP 16; TEMP 36.6; O2SAT 96
[2024-05-20 06:28] LABS: Basophils Percent Auto 0.4 % (0.2-1.2); Eosinophils Absolute Auto 0.1 K/mm3 (0-0.3); Eosinophils Percent Auto 3.2 % (0-4.4); Hematocrit 26.2 % (37.0-47.0); Hemoglobin 8.6 g/dL (12.0-15.0); Immature Granulocyte Absolute 0.02 K/mm3 (0.00-0.031); Immature Granulocyte Percent A 0.7 % (0-0.5); Immature Platelet Fraction Pct 2.3 % (0.9-11.2); Lymphocytes Absolute Auto 0.72 K/mm3 (0.9-3.2); Lymphocytes Percent Auto 25.4 % (18.3-44.2); Mean Corpuscular HGB Conc 32.8 g/dl (32-36); Mean Corpuscular Hemoglobin 29.6 pg (26-34); Mean Platelet Volume 10.2 fl (7.4-10.4); Monocytes Absolute Auto 0.3 K/mm3 (0.1-0.6); Neutrophils Absolute Auto 1.7 K/mm3 (1.3-6.7); Neutrophils Percent Auto 58.3 % (45.5-73.1); Platelet Count Result 90 k/mm3 (150-375); Red Blood Count 2.91 M/mm3 (4.2-5.4); White Blood Count 2.8 K/mm3 (4.5-10.0)
[2024-05-20 06:37] LABS: Alanine Aminotransferase 9 U/L (6-35); Albumin Level 2.5 g/dL (3.5-5.1); Alkaline Phosphatase 76 U/L (38-126); Anion Gap 5 mmol/L (4-12); Aspartate Amino Transferase 26 U/L (14-36); Bilirubin,Total 1.9 mg/dL (0.2-1.3); Blood Urea Nitrogen 21 mg/dL (7-17); Calcium 7.9 mg/dL (8.4-10.2); Carbon Dioxide 26 mmol/L (22-30); Chloride 105 mmol/L (98-107); Estimated CRCL calculation 53 ml/min; Estimated Glomerular Filt Rate > 60; Glucose 114 mg/dL (65-110); Potassium 3.8 mmol/L (3.4-5.0); Sodium 136 mmol/L (137-145)
[2024-05-20] MEDS: CELECOXIB 200 MG CAPSULE PO (09:44)
[2024-05-20] MEDS: SENNA/DOCUSATE SODIUM TABLET 2 TAB PO (09:44)
[2024-05-20] MEDS: FERROUS SULFATE 325 MG TABLET DR PO ×2 (09:44→17:06)
[2024-05-20] MEDS: CALCIUM/VITAMIN D 500 MG/5 MCG (200 I.U.) TABLET PO ×2 (09:44→17:05)
[2024-05-20] MEDS: KETOROLAC 0.5% OP SOLN 5 ML BOTTLE 1 DROP EACH EYE ×3 (09:45→17:06)
--- NOTE | 2024-05-20 10:16 | PM.PNORT ---
Progress Note: A&P Assessment and Plan (1) Closed fracture of neck of right femur: Qualifiers: Encounter type: initial encounter Qualified Code(s): S72.001A - Fracture of unspecified part of neck of right femur, initial encounter for closed fracture Code(s): S72.001A - Fracture of unspecified part of neck of right femur, initial encounter for closed fracture Status: Acute Assessment and Plan: Patient is status post bipolar endoprosthetic replacement for hip fracture. This is on the right hip. She is progressing slowly with some pain issues. Overall she is doing okay. Awaiting placement at this time. Follow-up 2 weeks in the office. Subjective Subjective Date/Time Seen: 05/20/24 10:16 Post Op day: 5 Principal diagnosis: Femoral Neck Fracture Review of Systems Review of Systems: All systems reviewed & are unremarkable except as noted in HPI and below Exam Narrative: Wiggles toes. NVI Walking with a waler Const: General: uncomfortable Other: Comnplaining of moderate pain Objective Data Vital Signs Vital Signs: Vital Signs - 24 hr 05/19/24 11:40 05/19/24 12:05 05/19/24 13:05 Temperature 98.2 F 98.0 F 97.7 F Pulse Rate 93 89 90 Respiratory Rate 16 16 16 Blood Pressure 142/43 H 136/45 L 133/55 L Pulse Oximetry 96 95 99 Oxygen Delivery 05/19/24 14:05 05/19/24 15:05 05/19/24 15:30 Temperature 97.9 F 98.3 F 97.5 F L Pulse Rate 93 85 86 Respiratory Rate 16 16 16 Blood Pressure 130/62 136/55 L 128/43 L Pulse Oximetry 99 97 Oxygen Delivery 05/19/24 14:05 05/19/24 15:30 05/19/24 21:21 Temperature 97.9 F 97.5 F L 98.0 F Pulse Rate 93 86 82 Respiratory Rate 16 16 18 Blood Pressure 130/62 128/43 L 139/50 L Pulse Oximetry 100 97 100 Oxygen Delivery 05/19/24 20:00 05/20/24 05:53 Temperature 97.9 F Pulse Rate 82 Respiratory Rate 16 Blood Pressure 131/47 L Pulse Oximetry 96 Oxygen Delivery Room Air Intake/Output Intake/Output: Intake & Output 05/17/24 05/18/24 05/19/2424 23:59 23:59 23:59 23:59 Intake Total 3485.1 1145 2266 300 Output Total 550 Balance 2935.1 1145 2266 300 Meds/Results Medications: Active Medications Generic Name Dose Route Start Last Admin Trade Name Freq PRN Reason Stop Dose Admin Hydrocodone Bitart/Acetaminophen 1 tab 05/16/24 16:37 Hydrocodone/Acetaminophen (*Crx) 5-325 Mg Tablet PO Q4H PRN Pain Rated 4-6 Hydrocodone Bitart/Acetaminophen 1 tab 05/17/24 12:13 05/20/24 09:43 Hydrocodone/Acetaminophen (*Crx) 10-325 Mg Tablet PO 1 tab Q4H PRN Administration Pain Rated 7-10 Calcium Carbonate 500 mg 05/20/24 08:00 05/20/24 09:44 Calcium/Vitamin D 500 Mg/5 Mcg (200 I.U.) Tablet PO 500 mg BIDWM JOSE Administration Celecoxib 200 mg 05/17/24 09:00 05/20/24 09:44 Celecoxib 200 Mg Capsule PO 200 mg DAILY JOSE Administration Cyclobenzaprine HCl 10 mg 05/16/24 16:37 05/18/24 20:06 Cyclobenzaprine Hcl 10 Mg Tablet PO 10 mg Q8H PRN Administration Muscle Spasm Ferrous Sulfate 325 mg 05/19/24 17:00 05/20/24 09:44 Ferrous Sulfate [address] PO 325 mg BID JOSE Administration Hydromorphone HCl 1 mg 05/16/24 16:37 05/17/24 11:47 Hydromorphone Hcl Inj (*Crx) 1 Mg/Ml Syr IV PUSH 1 mg Q2H PRN Administration Breakthrough Pain Rated 7-10 or NPO Hydromorphone HCl 0.5 mg 05/16/24 16:37 Hydromorphone Hcl Inj (*Crx) 1 Mg/Ml Syr IV PUSH Q2H PRN Breakthrough Pain Rated 4-6 or NPO Ibuprofen 800 mg in 200 mls @ 400 mls/hr 05/16/24 16:37 Caldolor 800 Mg/200 Ml IVPB Q6H PRN Breakthrough Pain Rated 1-3 or NPO Ketorolac Tromethamine 1 drop 05/17/24 13:40 05/20/24 09:45 Ketorolac 0.5% Op Soln 5 Ml Bottle EACH EYE 1 drop TID JOSE Administration Moxifloxacin HCl 1 drop 05/17/24 13:40 05/19/24 21:40 Moxifloxacin Hcl 0.5% 3 Ml Ophth Soln EACH EYE 1 drop Q12H JOSE Administration Naloxone HCl 0.1 mg 05/16/24 16:37 Naloxone Hcl 0.4 Mg/Ml Vial IV PUSH Q2M PRN Opiate Reversal Ondansetron HCl 4 mg 05/16/24 16:37 Ondansetron Inj 4 Mg/2 Ml Vial IV PUSH Q4H PRN Nausea And Vomiting Polyethylene Glycol 17 gm 05/17/24 09:00 05/20/24 09:45 Polyethylene Glycol 3350 17 Gm Powd.Pack PO Not Given QAM [facility] Rivaroxaban 10 mg 05/16/24 22:00 Rivaroxaban 10 Mg Tablet PO DAILY@1700 [facility] Senna/Docusate Sodium 2 tab 05/16/24 17:00 05/20/24 09:44 Senna/Docusate Sodium Tablet PO 2 tab BID JOSE Administration Tramadol HCl 50 mg 05/16/24 16:37 Tramadol Hcl (*Crx) 50 Mg Tablet PO Q4H PRN Pain Rated 1-3 Radiology Results: ITS Impressions Chest X-Ray 05/15/24 23:33 IMPRESSION: No focal infiltrate or effusion. Hip/Pelvis X-Ray 05/15/24 23:33 IMPRESSION: Acute right femoral neck fracture with slight impaction and overriding of fracture fragment Intraoperative X-Ray 05/16/24 15:27 IMPRESSION: 1. Expected appearance during right hip hemiarthroplasty. Knee X-Ray 05/17/24 14:59 IMPRESSION: 1. Tricompartmental osteoarthritis, severe in the medial compartment and small knee joint effusion. Labs Labs: Laboratory Results - last 24 hr 05/19/24 05/19/24 05/20/24 08:51 17:23 06:02 WBC 2.8 L RBC 2.91 L Hgb 8.9 L 8.6 L Hct 27.5 L 26.2 L MCV 90.0 MCH 29.6 MCHC 32.8 RDW 18.0 H Plt Count 90 L MPV 10.2 Immature Gran % (Auto) 0.7 H Neut % (Auto) 58.3 Lymph % (Auto) 25.4 [place] % (Auto) 12.0 H Eos % (Auto) 3.2 Baso % (Auto) 0.4 Lymph # (Auto) 0.72 L [place] # (Auto) 0.3 Eos # (Auto) 0.1 Baso # (Auto) 0.0 Abs Immat Gran (auto) 0.02 Absolute Neuts (auto) 1.7 Absolute Nucleated RBC 0.000 Nucleated RBC % 0.0 % Immature Plt Fraction 2.3 Sodium 136 L Potassium 3.8 Chloride 105 Carbon Dioxide 26 Anion Gap 5 BUN 21 H Creatinine 0.70 Estim Creat Clear Calc 53 Estimated GFR > 60 Glucose 114 H Calcium 7.9 L Total Bilirubin 1.9 H AST 26 ALT 9 Alkaline Phosphatase 76 Total Protein 6.0 L Albumin 2.5 L Blood Type A Positive Antibody Screen Negative Crossmatch See Detail
[2024-05-20] MEDS: MOXIFLOXACIN HCL 0.5% 3 ML OPHTH SOLN 1 DROP EACH EYE (12:45)
[2024-05-20] MEDS: CYCLOBENZAPRINE HCL 10 MG TABLET PO (12:47)
[2024-05-20 14:00] VITALS: BP 131/52; PULSE 91; RESP 18; TEMP 36.2; O2SAT 98
--- NOTE | 2024-05-20 14:03 | P.PNIM_ITS ---
Progress Note: A&P Assessment and Plan (1) Closed fracture of neck of right femur: Qualifiers: Encounter type: initial encounter Qualified Code(s): S72.001A - Fracture of unspecified part of neck of right femur, initial encounter for cl osed fracture Code(s): S72.001A - Fracture of unspecified part of neck of right femur, initial encounter for closed fracture Status: Acute Assessment and Plan: Status post mechanical fall resulting in right hip fracture. * POD 4 bipolar hip replacement * DVT prophylaxis, pain management per Ortho. Did increase her [place] offering back to 10 mg as this was her home dose * Bowel regimen in place. She had a bowel movement 05/19 * PT OT ordered * Chanda hose ordered * Patient will likely discharge to [facility] bed on Monday * She is having increased pain to her right knee. She always has pain that she says is a 9/10. Her right knee is swollen and suspect inflammation contributing. 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 (2) Fall from ground level: Code(s): W18.30XA - Fall on same level, unspecified, initial encounter Status: Acute Assessment and Plan: * Fall precaution * PT OT consult (3) Diastolic dysfunction: Code(s): I51.89 - Other ill-defined heart diseases Status: Acute Assessment and Plan: Patient has a history of diastolic dysfunction. Echo from 01/2023 shows LV systolic function normal with an EF estimated 65-70%, LV diastolic dysfunction is present with moderate AV sclerosis and stenosis. Mild pulmonary hypertension with an estimated PA systolic pressure of 43 mm Hg. She has chronic lower extremity edema: left greater than right. * Patient appears to be on propranolol 20 mg b.i.d., aspirin 81 mg daily. She follows with Dr. Mckeon. * can consider Lasix if swelling increases * CHANDA hose for bilateral lower extremity edema * Recommended patient discuss starting SLGT2 with her cleat blanker given current DM. * strict I&O * daily weights * low sodium, dm diet after surgery (4) Diabetes: Code(s): E11.9 - Type 2 diabetes mellitus without complications Status: Acute Assessment and Plan: Hemoglobin 5.2% in 12/2023. Patient takes glimepiride daily. * Hold oral diabetes while inpatient * AC/HS accu checks * low dose SSI, hypoglycemia protocol (5) Anemia: Code(s): D64.9 - Anemia, unspecified Status: Acute Assessment and Plan: Hemoglobin 10.7 g/dl on admission. Down to 6.8 g/dl on 05/18/24. * transfused 1 unit of pRBC on 05/18. Denies dizziness, shortness of breath. She had some tachycardia as well. * Repeat H/H today is 6.9 g/dl. Will give an additional unit of pRBC today. Expect some of the decrease is from fracture and surgery. EBL 500 ml per op note. * She does have increased ecchymosis to her right hip and thigh. Area is not tight and she has palpable pulses. If her H/H remains low then we can CT scan her to make sure she does not have a leaky vessel contributing. * Added vitamin B12, folic acid, and iron panel--obtained after a unit of blood iron is still rather low. Added ferrous sulfate BID. * Stable hemoglobin today 8.6 g/dl. Will repeat H/H tomorrow and if stable we will d/c to [place] swing on 05/21 Plan Patient complains of mouth sores that hurt when wearing her dentures. She has two small ulcerations to her upper gumline and under her tongue. She has loose fitting dentures. Recommended adding a denture paste to help decrease friction with eating. Subjective Date/time seen: 05/20/24 14:03 Interval history: No acute events overnight. She is having some pain in her mouth on her gum line. Her dentures are loose and she needs to be seen by dentistry. Otherwise she is doing pretty well. Review of Systems Review of Systems: All systems reviewed & are unremarkable except as noted in HPI and below Exam Narrative: General: appears comfortable, in no acute distress Respiratory: breathing is unlabored with even chest rise/fall, lungs are clear without wheezing, rhonchi, and crackles Cardiovascular: Rate and rhythm regular, normal s1s2, no murmur Abdomen: Soft, round, non-tender, active bowel sounds Extremities: No cyanosis, +1 bilateral lower extremity edema with increased swelling into her right thigh, no clubbing. Pulses 2/2. Neuro: A&O x 4 Skin: Warm, dry, intact. Right hip incision with surgical island dressing with scant serosanguineous drainage surrounding ecchymosis that travels into her right thigh and groin. No retroperitoneal ecchymosis. Objective Data Vital Signs Vital Signs: Vital Signs - 24 hr 05/19/24 14:05 05/19/24 15:05 05/19/24 15:30 Temperature 97.9 F 98.3 F 97.5 F L Pulse Rate 93 85 86 Respiratory Rate 16 16 16 Blood Pressure 130/62 136/55 L 128/43 L Pulse Oximetry 99 97 Oxygen Delivery 05/19/24 14:05 05/19/24 15:30 05/19/24 21:21 Temperature 97.9 F 97.5 F L 98.0 F Pulse Rate 93 86 82 Respiratory Rate 16 16 18 Blood Pressure 130/62 128/43 L 139/50 L Pulse Oximetry 100 97 100 Oxygen Delivery 05/19/24 20:00 05/20/24 05:53 05/20/24 08:00 Temperature 97.9 F Pulse Rate 82 Respiratory Rate 16 Blood Pressure 131/47 L Pulse Oximetry 96 Oxygen Delivery Room Air Room Air Intake/Output Intake/Output: Intake & Output 05/17/24 05/18/24 05/19/24 05/20/24 23:59 23:59 23:59 23:59 Intake Total 3485.1 1145 2266 540 Output Total 550 Balance 2935.1 1145 2266 540 Meds/Results Medications: Active Medications Generic Name Dose Route Start Last Admin Trade Name Freq PRN Reason Stop Dose Admin Hydrocodone Bitart/Acetaminophen 1 tab 05/16/24 16:37 Hydrocodone/Acetaminophen (*Crx) 5-325 Mg Tablet PO Q4H PRN Pain Rated 4-6 Hydrocodone Bitart/Acetaminophen 1 tab 05/17/24 12:13 05/20/24 09:43 Hydrocodone/Acetaminophen (*Crx) 10-325 Mg Tablet PO 1 tab Q4H PRN Administration Pain Rated 7-10 Calcium Carbonate 500 mg 05/20/24 08:00 05/20/24 09:44 Calcium/Vitamin D 500 Mg/5 Mcg (200 I.U.) Tablet PO 500 mg BIDWM JOSE Administration Celecoxib 200 mg 05/17/24 09:00 05/20/24 09:44 Celecoxib 200 Mg Capsule PO 200 mg DAILY JOSE Administration Cyclobenzaprine HCl 10 mg 05/16/24 16:37 05/20/24 12:47 Cyclobenzaprine Hcl 10 Mg Tablet PO 10 mg Q8H PRN Administration Muscle Spasm Ferrous Sulfate 325 mg 05/19/24 17:00 05/20/24 09:44 Ferrous Sulfate [address] PO 325 mg BID JOSE Administration Hydromorphone HCl 1 mg 05/16/24 16:37 05/17/24 11:47 Hydromorphone Hcl Inj (*Crx) 1 Mg/Ml Syr IV PUSH 1 mg Q2H PRN Administration Breakthrough Pain Rated 7-10 or NPO Hydromorphone HCl 0.5 mg 05/16/24 16:37 Hydromorphone Hcl Inj (*Crx) 1 Mg/Ml Syr IV PUSH Q2H PRN Breakthrough Pain Rated 4-6 or NPO Ibuprofen 800 mg in 200 mls @ 400 mls/hr 05/16/24 16:37 Caldolor 800 Mg/200 Ml IVPB Q6H PRN Breakthrough Pain Rated 1-3 or NPO Ketorolac Tromethamine 1 drop 05/17/24 13:40 05/20/24 12:45 Ketorolac 0.5% Op Soln 5 Ml Bottle EACH EYE 1 drop TID JOSE Administration Moxifloxacin HCl 1 drop 05/17/24 13:40 05/20/24 12:45 Moxifloxacin Hcl 0.5% 3 Ml Ophth Soln EACH EYE 1 drop Q12H JOSE Administration Naloxone HCl 0.1 mg 05/16/24 16:37 Naloxone Hcl 0.4 Mg/Ml Vial IV PUSH Q2M PRN Opiate Reversal Ondansetron HCl 4 mg 05/16/24 16:37 Ondansetron Inj 4 Mg/2 Ml Vial IV PUSH Q4H PRN Nausea And Vomiting Polyethylene Glycol 17 gm 05/17/24 09:00 05/20/24 09:45 Polyethylene Glycol 3350 17 Gm Powd.Pack PO Not Given QAM COUNTS INCLUDE 234 BEDS AT THE [facility] Rivaroxaban 10 mg 05/16/24 22:00 Rivaroxaban 10 Mg Tablet PO DAILY@1700 COUNTS INCLUDE 234 BEDS AT THE [facility] Senna/Docusate Sodium 2 tab 05/16/24 17:00 05/20/24 09:44 Senna/Docusate Sodium Tablet PO 2 tab BID JOSE Administration Tramadol HCl 50 mg 05/16/24 16:37 Tramadol Hcl (*Crx) 50 Mg Tablet PO Q4H PRN Pain Rated 1-3 Radiology Results: ITS Impressions Chest X-Ray 05/15/24 23:33 IMPRESSION: No focal infiltrate or effusion. Hip/Pelvis X-Ray 05/15/24 23:33 IMPRESSION: Acute right femoral neck fracture with slight impaction and overriding of fracture fragment Intraoperative X-Ray 05/16/24 15:27 IMPRESSION: 1. Expected appearance during right hip hemiarthroplasty. Knee X-Ray 05/17/24 14:59 IMPRESSION: 1. Tricompartmental osteoarthritis, severe in the medial compartment and small knee joint effusion. Labs Labs: Laboratory Results - last 24 hr 05/19/24 05/19/24 05/20/24 08:51 17:23 06:02 WBC 2.8 L RBC 2.91 L Hgb 8.9 L 8.6 L Hct 27.5 L 26.2 L MCV 90.0 MCH 29.6 MCHC 32.8 RDW 18.0 H Plt Count 90 L MPV 10.2 Immature Gran % (Auto) 0.7 H Neut % (Auto) 58.3 Lymph % (Auto) 25.4 [place] % (Auto) 12.0 H Eos % (Auto) 3.2 Baso % (Auto) 0.4 Lymph # (Auto) 0.72 L [place] # (Auto) 0.3 Eos # (Auto) 0.1 Baso # (Auto) 0.0 Abs Immat Gran (auto) 0.02 Absolute Neuts (auto) 1.7 Absolute Nucleated RBC 0.000 Nucleated RBC % 0.0 % Immature Plt Fraction 2.3 Sodium 136 L Potassium 3.8 Chloride 105 Carbon Dioxide 26 Anion Gap 5 BUN 21 H Creatinine 0.70 Estim Creat Clear Calc 53 Estimated GFR > 60 Glucose 114 H Calcium 7.9 L Total Bilirubin 1.9 H AST 26 ALT 9 Alkaline Phosphatase 76 Total Protein 6.0 L Albumin 2.5 L Crossmatch See Detail Quality VTE Prophylaxis VTE prophylaxis: mechanical ordered
[2024-05-20 18:28] LABS: Folic Acid 8.9 ng/mL (2.76->20)
[2024-05-20 20:45] VITALS: BP 136/73; PULSE 103; RESP 18; TEMP 36.7; O2SAT 97
[2024-05-21] MEDS: MOXIFLOXACIN HCL 0.5% 3 ML OPHTH SOLN 1 DROP EACH EYE (01:42)
[2024-05-21] MEDS: HYDROcodone/acetaminophen (*CRX) 10-325 MG TABLET 1 TAB PO ×2 (02:49→11:44)
[2024-05-21 04:20] VITALS: BP 150/53; PULSE 92; RESP 18; TEMP 37.4; O2SAT 97
[2024-05-21 07:56] LABS: Hematocrit 27.7 % (37.0-47.0); Hemoglobin 8.8 g/dL (12.0-15.0); Mean Corpuscular HGB Conc 31.8 g/dl (32-36); Mean Corpuscular Hemoglobin 29.1 pg (26-34); Mean Corpuscular Volume 91.7 fl (80-100); Mean Platelet Volume 10.3 fl (7.4-10.4); Platelet Count Result 105 k/mm3 (150-375); Red Blood Count 3.02 M/mm3 (4.2-5.4); Red Cell Distribution Width 18.2 % (11.5-14.5); White Blood Count 3.1 K/mm3 (4.5-10.0)
[2024-05-21] MEDS: CALCIUM/VITAMIN D 500 MG/5 MCG (200 I.U.) TABLET PO (09:01)
[2024-05-21] MEDS: CELECOXIB 200 MG CAPSULE PO (09:01)
[2024-05-21] MEDS: SENNA/DOCUSATE SODIUM TABLET 2 TAB PO (09:01)
[2024-05-21] MEDS: FERROUS SULFATE 325 MG TABLET DR PO (09:01)
[2024-05-21] MEDS: KETOROLAC 0.5% OP SOLN 5 ML BOTTLE 1 DROP EACH EYE (09:25)
--- NOTE | 2024-05-21 10:50 | P.DS_ITS ---
DS: Admitting Diagnosis Discharge Date 05/21 Admitting Diagnosis Fall DS: Discharge Diagnosis Discharge Diagnosis (1) Closed fracture of neck of right femur: Qualifiers: Encounter type: initial encounter Qualified Code(s): S72.001A - Fracture of unspecified part of neck of right femur, initial encounter for cesar sed fracture Code(s): S72.001A - Fracture of unspecified part of neck of right femur, initial encounter for closed fracture Status: Acute Assessment and Plan: Status post mechanical fall resulting in right hip fracture. * POD 4 bipolar hip replacement * DVT prophylaxis, pain management per Ortho. Did increase her [place] offering back to 10 mg as this was her home dose * Bowel regimen in place. She had a bowel movement 05/19 * PT OT ordered * Chanda hose ordered * Patient will likely discharge to [facility] bed on Monday * She is having increased pain to her right knee. She always has pain that she says is a 9/10. Her right knee is swollen and suspect inflammation contributing. 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 (2) Fall from ground level: Code(s): W18.30XA - Fall on same level, unspecified, initial encounter Status: Acute Assessment and Plan: * Fall precaution * PT OT consult (3) Diastolic dysfunction: Code(s): I51.89 - Other ill-defined heart diseases Status: Acute Assessment and Plan: Patient has a history of diastolic dysfunction. Echo from 01/2023 shows LV systolic function normal with an EF estimated 65-70%, LV diastolic dysfunction is present with moderate AV sclerosis and stenosis. Mild pulmonary hypertension with an estimated PA systolic pressure of 43 mm Hg. She has chronic lower extremity edema: left greater than right. * Patient appears to be on propranolol 20 mg b.i.d., aspirin 81 mg daily. She follows with Dr. Mckeon. * can consider Lasix if swelling increases * CHANDA hose for bilateral lower extremity edema * Recommended patient discuss starting SLGT2 with her hand tier given current DM. * strict I&O * daily weights * low sodium, dm diet after surgery (4) Diabetes: Code(s): E11.9 - Type 2 diabetes mellitus without complications Status: Acute Assessment and Plan: Hemoglobin 5.2% in 12/2023. Patient takes glimepiride daily. * Hold oral diabetes while inpatient * AC/HS accu checks * low dose SSI, hypoglycemia protocol (5) Anemia: Code(s): D64.9 - Anemia, unspecified Status: Acute Assessment and Plan: Hemoglobin 10.7 g/dl on admission. Down to 6.8 g/dl on 05/18/24. * transfused 1 unit of pRBC on 05/18. Denies dizziness, shortness of breath. She had some tachycardia as well. * Repeat H/H today is 6.9 g/dl. Will give an additional unit of pRBC today. Expect some of the decrease is from fracture and surgery. EBL 500 ml per op note. * She does have increased ecchymosis to her right hip and thigh. Area is not tight and she has palpable pulses. If her H/H remains low then we can CT scan her to make sure she does not have a leaky vessel contributing. * Added vitamin B12, folic acid, and iron panel--obtained after a unit of blood iron is still rather low. Added ferrous sulfate BID. * Stable hemoglobin today 8.6 g/dl. Will repeat H/H tomorrow and if stable we will d/c to [facility] swing on 05/21 Plan Patient complains of mouth sores that hurt when wearing her dentures. She has two small ulcerations to her upper gumline and under her tongue. She has loose fitting dentures. Recommended adding a denture paste to help decrease friction with eating. DS: Summary Hospital Course Reason for hospitalization: Right hip fracture Hospital Course: This is an 84-year-old female with a past medical history significant for liver cancer, osteoarthritis, polymyalgia, spinal stenosis, diabetes, hypertension, and hyperlipidemia who presented to the emergency room via EMS after sustaining a mechanical fall at home. The patient and her daughter provided the following history. Yesterday she was coming back inside from letting her dog out to go to the bathroom when she tripped over the door frame causing her to fall on her right side. She was unable to stand but did have her cell phone so she was able to contact her family who came a to assess her. They determined she needed further care and EMS was called. In the emergency room the patient was found to have right femoral neck fracture with slight impaction. Her right leg was ext ernally rotated and shortened. The patient states prior to this fall she has been in her usual state of health. She denies any dizziness, chest fluttering, or feeling faint prior to her episode. She states that she has pain in her feet and legs chronically that is always a 9/10. In regards to her right hip fracture she rates her pain 10/10. Orthopedics was consulted and the patient was admitted in the setting for surgical intervention. She underwent bipolar right hip replacement on 05-[address] Balbuena. Her postoperative course was essentially uncomplicated besides a persistent anemia requiring a total of 2 units packed red blood cells. She did have an estimated blood loss of 500 mL intraoperatively. Anemia labs also indicated iron deficiency and ferrous sulfate was initiated. She did well working with PT and OT but will require further therapy for weakness, gait training, and strengthening. She was discharged today in stable condition to [facility] for swing bed. Time Spent with Patient Time attestation: Total time spent providing and/or coordinating discharge services: 68 Exam Narrative: General: appears comfortable, in no acute distress Respiratory: breathing is unlabored with even chest rise/fall, lungs are clear without wheezing, rhonchi, and crackles Cardiovascular: Rate and rhythm regular, normal s1s2, no murmur Abdomen: Soft, round, non-tender, active bowel sounds Extremities: No cyanosis, +1 bilateral lower extremity edema with increased swelling into her right thigh, no clubbing. Pulses 2/2. Neuro: A&O x 4 Skin: Warm, dry, intact. Right hip incision with surgical island dressing with scant serosanguineous drainage surrounding ecchymosis that travels into her right thigh and groin. No retroperitoneal ecchymosis. DS: Data Data Completed and Pending Labs on day of discharge: Labs from last 24 hours 05/21/24 05/19/24 07:38 08:51 WBC 3.1 L RBC 3.02 L Hgb 8.8 L Hct 27.7 L MCV 91.7 MCH 29.1 MCHC 31.8 L RDW 18.2 H Plt Count 105 L MPV 10.3 Ferritin 31.60 Vitamin B12 986.0 H Folate 8.9 Discharge Plan Discharge Attending physician on discharge: Rito Mackey Consulting providers: Lei Balbuena Discharging Clinician: Margot Hicks Anticipated Discharge Date/Time: 05/21/24 10:44 Patient Disposition: Hospital Swing Bed Activity: may shower Diet: regular Discharge Instructions: You were admitted after falling at home and suffered a right hip fracture. Dr. Balbuena took you to surgery and did a bipolar hip repair. You have done well postoperatively. Your hemoglobin did drop requiring a total of 2 units of packed red blood cell transfusion. Your hemoglobin has remained stable the last 2 days and you are safe to discharge to hospital swing bed today. Dr. Balbuena would like you to follow-up in his office in 2 weeks and at that visit the jennie will be removed. Please continue with hip precautions. Apply ice as needed to the incision. Please change surgical dressing with 4x4 daily. Monitor her since the Subhash infection. Continue PT and OT with weight-bearing as tolerated to right hip. Patient Instructions: Antibiotic Form, Rivaroxaban (By mouth), Hip Fracture (ED) Stand Alone Forms: General Discharge Information Follow-up/Referrals: Lei Balbuena MD [Physician] - (Follow-up in 2 weeks) Rena Asher MD [Primary Care Provider] - Discharge Medications: New Xarelto 10 mg tablet 10 mg PO DAILY Qty: 14 0RF Rx Instructions: for 35 days celecoxib [Celebrex] 200 mg Capsule 200 mg PO DAILY Qty: 30 0RF cyclobenzaprine 10 mg Tablet 10 mg PO Q8H PRN (Reason: Muscle Spasm) Qty: 180 0RF sennosides-docusate sodium [Senokot-S] 8.6-50 mg Tablet 2 tab PO BID Qty: 60 0RF ferrous sulfate 325 mg (65 mg iron) Tablet,Delayed Release (Dr/Ec) 325 mg PO BID Qty: 60 0RF calcium carbonate-vitamin D3 [[place]yster [place] Calcium-Vit D3] 500 mg-5 mcg (200 unit) Tablet 1 tablet PO BIDWM Qty: 30 0RF Continued glimepiride 4 mg tablet 4 mg PO DAILY allopurinol 100 mg tablet 100 mg PO .COMPLEX Rx Instructions: 100 mg PO --; hydrocodone-acetaminophen 10-325 mg tablet 1 tablet PO QID PRN (Reason: Pain) propranolol 20 mg tablet 20 mg PO BID aspirin 81 mg Tablet 81 mg PO DAILY ketorolac 0.5 % drops 1 drp LEFT EYE TID pantoprazole 40 mg tablet,delayed release (DR/EC) 40 mg PO Q12H moxifloxacin 0.5 % drops 1 drp LEFT EYE BID Date of admission: 05/16/24 09:37 Primary Care Provider: Rena Asher Admitting Provider: Angelina Bautista Attending physician on admission: Margot Hicks Condition: Improved Quality VTE Prophylaxis VTE prophylaxis: mechanical ordered
== END 2024-05-21 12:45 | disposition swing bed (61) | DRG 522 ==
LOC: ANHED 05-16 00:53 → ANH3MEDSUR 05-16 02:20
PROVIDERS: Orthopaedic Surgery; Admitting Provider Internal Medicine; Emergency Provider Physician Assistant; PCP Internal Medicine; Visit Provider Nurse Practitioner Acute Care
PROC: 0SRR0JZ Replacement of Right Hip Joint, Femoral Surface with Synthetic Substitute, Open Approach (ICD-10-PCS; CPT 27125; principal; 2024-05-16 13:00)
DX: S72.001A Fracture of unspecified part of neck of right femur, initial encounter for closed fracture (principal); W01.0XXA Fall on same level from slipping, tripping and stumbling without subsequent striking against object, initial encounter; I51.89 Other ill-defined heart diseases; D64.9 Anemia, unspecified; E11.9 Type 2 diabetes mellitus without complications; M48.00 Spinal stenosis, site unspecified; E78.5 Hyperlipidemia, unspecified; I10 Essential (primary) hypertension; K12.1 Other forms of stomatitis; M17.11 Unilateral primary osteoarthritis, right knee; Z85.05 Personal history of malignant neoplasm of liver; Z79.82 Long term (current) use of aspirin; Z90.49 Acquired absence of other specified parts of digestive tract; Z90.710 Acquired absence of both cervix and uterus; Z87.891 Personal history of nicotine dependence
CPT/HCPCS: 36415; 36430; 71045; 73502; 73560; 80048; 80053; 82607; 82728; 82746; 82948; 83540; 83550; 83735; 85014; 85018; 85025; 85027; 85046; 85055; 85610; 85730; 86850; 86900; 86901; 86923; 93005; 96374; 96375; 96376; 97110; 97116; 97161; 97165; 97530; 97535; 99199; 99285; A9270; C1776; G0378; J0171; J0690; J1171; J2003; J2270; J2371; J2405; J2704; J3010; J3370; J7030; J7050; J7120; P9016

== ENCOUNTER 2024-05-21 13:31 | Inpatient (IN) | payer MEDICARE, SELFPAY ==
--- NOTE | ~2024-05-21 | XR_ITS ---
EXAMINATION: XR chest 1V portable DATE: 05/31/2024 10:28 INDICATION: Shortness of breath TECHNIQUE: frontal view of the chest was obtained. COMPARISON: Chest radiograph dated 05/15/2024 FINDINGS: Calcified nodule at the right midlung zone consistent with old granulomatous disease. No other airspa ce opacities, pulmonary edema, pleural effusion or pneumothorax. Heart size is normal. Mitral annular calcification. Postoperative changes in the upper abdomen with multiple surgical clips in the epigas tric region and cholecystectomy clips in right upper quadrant. IMPRESSION: 1. No acute cardiopulmonary disease. Reviewed, dictated and finalized at location A. ENTER INSPECTOR
--- NOTE | ~2024-05-21 | CT_ITS ---
EXAMINATION: CT brain wo con DATE: 05/31/2024 09:02 INDICATION: Altered mental status and confusion. TECHNIQUE: Computed tomography (CT) of the head was performed without intravenous contrast. Sagittal and coronal reconstructions were performed. The mA was adjusted according to patient size. Iterative reconstruction technique was employed. The dose-length product was 605.33 mGy-cm. COMPARISON: head CT dated 06/27/2017 FINDINGS: No acute intracranial hemorrhage, acute infarction or abnormal extra axial fluid collection. There is mild scattered white matter hypoattenuation consistent with chronic small vessel ischemic disease. S ymmetric prominence of the sulci consistent with mild age-appropriate diffuse cerebral volume loss. V entricles are normal and symmetric. No mass/mass effect. Changes of bilateral intraocular lens replac ement. The orbits and mastoid air cells are normal. There is extensive complete near complete opacifi cation of the right frontal, bilateral maxillary and bilateral ethmoid sinuses as well as the anterio r right and posterior left ethmoid air cells. The ambrosio of the sinuses appear relatively thickened an d sclerotic when compared with the prior imaging, there is subtle central calcification within the op acified right maxillary sinus consistent with chronic sinusitis. There appears be interval slight out noel bulging of the posterior wall of the right maxillary sinus and expansion of the right frontal si nus and frontoethmoidal recess with erosion of the inner wall of the right frontal sinus which is ess entially indiscernible consistent with mucoceles. Is unclear whether there is any remaining intact taylor ne along portions of the posterior wall of the right frontal sinus, there is no evident abscess in th e immediately adjacent anterior cranial fossa although evaluation is more limited on noncontrast imag ing. IMPRESSION: 1. Interval development of significant chronic pansinusitis with likely mucoceles of the right maxill elvin and frontal sinuses. There is erosion, potentially full-thickness of the bone along the posterior wall of the right frontal sinus/inner table of the skull at the anterior cranial fossa but without e vident underlying intracranial abscess. Consider ENT consultation and could consider contrast-enhance d CT or MRI for more sensitive evaluation. 2. Age-related changes in the brain including mild diffuse volume loss and mild scattered white matte r hypoattenuation consistent with chronic small vessel ischemic disease. Reviewed, dictated and finalized at location A. GER REIMBURSEMENT IMPRESSION: 1. 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 There is erosion, potentially fu ll-thickness of the bone along the posterior wall of the right frontal sinus/in ner table of the skull at the anterior cranial fossa but without evident underl bianca intracranial abscess. Consider ENT consultation and could consider contras t-enhanced CT or MRI for more sensitive evaluation. 2. Age-related changes in the brain including mild diffuse volume loss and mild scattered white matter hypoattenuation consistent with chronic small vessel is chemic disease.
--- NOTE | ~2024-05-21 | CT_ITS ---
EXAMINATION: CT abdomen pelvis w con DATE: 05/31/2024 11:45 INDICATION: Bleeding, possible abscess TECHNIQUE: Computed tomography (CT) of the abdomen and pelvis was performed with 100 CC Omnipaque 350 intravenous contrast. Automated exposure control and iterative reconstruction technique were employe d. Exam dose: 1305.03 mGy-cm total exam DLP. COMPARISON: 06/19/2023 CT abdomen pelvis FINDINGS: There is mild multifocal discoid atelectasis or scarring at the right lower lobe primarily. No infiltrate or consolidation at the lung bases. Heart size is within normal range. No pericardial or pleural effusion. There is a small nodular liver consistent with cirrhosis, with associated splenomegaly and moderate a scites. No focal hepatic space-occupying mass lesion is evident. Status post cholecystectomy. No bile duct or pancreatic duct dilatation. No pancreatic mass lesion or calcification. No adrenal mass lesion. No renal mass lesion or urinary tract calculus or hydroureteronephrosis is de tected. The urinary bladder is largely obscured by extensive streak artifact from right hip prosthesis. There is osteoarthritic change at the left hip. Small sliding hiatal hernia. Multiple surgical clips are noted in the stomach area. Diverticulosis of the sigmoid colon; no CT evidence of diverticulitis is noted. No bowel obstruction or intraperitoneal free air. There is abdominal aortic calcification but no aneurysm. No intraperitoneal or retroperitoneal or pel dennis mass lesion or adenopathy is noted. There is edema of both lower extremities, right greater than left. Degenerative changes of the included lower thoracic and lumbar spine including multilevel lumbar dege nerative disc disease, most severe at L5-S1. No suspicious osteolytic or osteoblastic lesions are noted. IMPRESSION: Cirrhosis, splenomegaly, moderate ascites Status post cholecystectomy Postoperative change of the stomach Status post right total hip arthroplasty Diverticulosis of the sigmoid colon; no evidence of diverticulitis Reviewed, dictated and finalized at Location A. Reviewed, dictated and finalized at location A. FABRICATOR
--- NOTE | 2024-05-21 13:45 | ADMGEN ---
This patient, Khadra Crook, was admitted to 2nd Floor Room 208-1. Patient/family oriented to hospital policies and general routines including ID bracelet, bed and alarms, visiting hours, pain management, procedures, bathroom and other care routines, personal items, smoking policy, room service/diet, and visiting hours. Information on how to activate the Rapid Response Team has been discussed. Patient/Family are encouraged to report perceived risks to care and to ask questions if they do not understand what they are told or what they should do.
[2024-05-21 13:56] VITALS: BMI 29.7
[2024-05-21 14:00] VITALS: BP 158/63; PULSE 92; RESP 18; TEMP 36.7; O2SAT 100
[2024-05-21 14:55] VITALS: PULSE 84; RESP 16; O2SAT 100
--- NOTE | 2024-05-21 15:16 | PHAR ---
Verified pt.'s home meds: Ketorolac Tromethamine 0.5 % ophthalmic soln. IInstill 1 drop into left eye three times daily. MOXIFLOXACIN HCL 0.5% 3 ML OPHTH SOLN. INSTILL 1 DROP INTO LEFT EYE EVERY 12 HOURS.
[2024-05-21 15:43] VITALS: BP 140/60; PULSE 84; RESP 16; TEMP 36.3; O2SAT 100
[2024-05-21 16:00] VITALS: BP 140/60; PULSE 84; RESP 16; TEMP 36.3; O2SAT 100
[2024-05-21 16:36] LABS: Glucose Point of Care 177 mg/dl (65-105)
[2024-05-21] MEDS: CALCIUM/VITAMIN D 250 MG/3.125 MCG (125 I.U.) TABLET 1 TABLET PO (16:56)
[2024-05-21] MEDS: FERROUS SULFATE 325 MG TABLET DR PO (16:56)
[2024-05-21] MEDS: SENNA/DOCUSATE SODIUM TABLET 2 TAB PO (16:57)
[2024-05-21] MEDS: KETOROLAC TROMETHAMINE 0.5% LEFT EYE (16:58)
[2024-05-21] MEDS: [UNRECOGNIZED DRUG - OTHER] LEFT EYE (16:58)
[2024-05-21] MEDS: HYDROcodone/acetaminophen (*CRX) 5-325 MG TABLET 1 TAB PO ×2 (17:05→20:30)
--- NOTE | 2024-05-21 17:11 | PC.NURSE ---
Patient takes only one senna/Docusate tablet instead of two. Complains of stool that are soft and not formed. Education given informing narcotics can cause constipation and encouraged her to monitor stools and alert staff if she feels she is becoming constipated. Patient voiced understanding.
--- NOTE | 2024-05-21 17:14 | PC.NURSE ---
Patient complains of pain while sitting up in chair for supper meal. Encouraged her to put legs down instead of reclining. Patient refused at this time. Pain medication given per patient request.
[2024-05-21 20:28] VITALS: PULSE 90
[2024-05-21] MEDS: PROPRANOLOL HCL 20 MG TABLET PO (20:28)
[2024-05-21] MEDS: PANTOPRAZOLE 40 MG TABLET PO (20:28)
[2024-05-21] MEDS: MOXIFLOXACIN HCL 0.5% 3 ML OPHTH SOLN 1 DROP LEFT EYE (20:31)
[2024-05-21 20:33] LABS: Glucose Point of Care 166 mg/dl (65-105)
[2024-05-22] VITALS: BP 135/57; PULSE 90; RESP 16; TEMP 36.5; O2SAT 98
[2024-05-22] MEDS: HYDROcodone/acetaminophen (*CRX) 5-325 MG TABLET 1 TAB PO (04:14)
[2024-05-22 08:00] VITALS: BP 152/69; PULSE 88; RESP 18; TEMP 36.6; O2SAT 99
[2024-05-22 08:06] LABS: Glucose Point of Care 117 mg/dl (65-105)
[2024-05-22] MEDS: CELECOXIB 100 MG CAPSULE 200 MG PO (08:56)
[2024-05-22] MEDS: CALCIUM/VITAMIN D 250 MG/3.125 MCG (125 I.U.) TABLET 1 TABLET PO ×2 (08:56→17:24)
[2024-05-22 08:57] VITALS: PULSE 88
[2024-05-22] MEDS: FERROUS SULFATE 325 MG TABLET DR PO ×2 (08:57→17:24)
[2024-05-22] MEDS: ASPIRIN 81 MG ENTERIC TABLET PO (08:57)
[2024-05-22] MEDS: PROPRANOLOL HCL 20 MG TABLET PO ×2 (08:57→20:09)
[2024-05-22] MEDS: PANTOPRAZOLE 40 MG TABLET PO ×2 (08:57→20:09)
[2024-05-22] MEDS: RIVAROXABAN 10 MG TABLET PO (08:57)
[2024-05-22] MEDS: HYDROcodone/acetaminophen (*CRX) 10-325 MG TABLET 1 TAB PO ×3 (08:58→20:08)
[2024-05-22] MEDS: KETOROLAC TROMETHAMINE 0.5% LEFT EYE ×3 (08:59→17:24)
[2024-05-22] MEDS: MOXIFLOXACIN HCL 0.5% 3 ML OPHTH SOLN 1 DROP LEFT EYE ×2 (08:59→20:24)
[2024-05-22] MEDS: [UNRECOGNIZED DRUG - OTHER] LEFT EYE ×3 (08:59→17:24)
[2024-05-22] MEDS: allopurinoL 100 MG TABLET PO (09:01)
[2024-05-22] MEDS: GABAPENTIN 100 MG CAPSULE PO ×3 (09:52→17:24)
[2024-05-22 12:05] LABS: Glucose Point of Care 154 mg/dl (65-105)
[2024-05-22 16:00] VITALS: BP 140/53; PULSE 66; RESP 16; TEMP 36.4; O2SAT 100
--- NOTE | 2024-05-22 16:25 | P.HP_ITS ---
H&P: HPI History of Present Illness Date/Time: 05/22/24 16:25 Chief Complaint: Right femur fracture postop rehabilitation Narrative: Patient is 84-year-old female who was a direct admit from [facility] to [facility] for continued rehabilitation following a closed fracture the neck of the right femur patient arrived postop day 5. She has a a past medical history significant for liver cancer, osteoarthritis, polymyalgia, spinal stenosis, diabetes, hypertension, and hyperlipidemia. She underwent bipolar right hip replacement on 05-[address] Balbuena. Her postoperative course was essentially uncomplicated besides a persistent anemia requiring a total of 2 units packed red blood cells. She did have an estimated blood loss of 500 mL intraoperatively. Patient continued to work with physical and occupational therapy but was requiring continued gait training and strengthening prior to returning home. Review of Systems Review of Systems: Had complaints neuropathy pain bilateral All systems reviewed & are unremarkable except as noted in HPI and below PMFSH Past Medical History Medical History Anemia Arthritis Cancer Diabetes Elevated lipids Hypertension Liver cancer Surgical History Surgical History History of ablation of neoplasm of liver History of appendectomy Hx laparoscopic cholecystectomy Hx of hysterectomy, total Hx of tonsillectomy Family History Family History Father Brain tumor Cerebrovascular accident Mother Cerebrovascular accident Mother Cerebrovascular accident Social History Social History Social History: Patient lives at home alone with her dog. She is normally independent without use of assistive devices. Her daughter Nicole, is her emergency contact. Patient would like to remain a full code. Smoking status: Former smoker Tobacco type: cigarettes Alcohol intake: never Substance use: never Substance use type: does not use Do You Feel Safe in your Home?: Yes Lack of Transportation: No Lack of Food: Never True Current Housing: I Have Housing Concerned About Future Housing: No Difficulty Paying Gas/Electric Bills: No Difficulty Paying for Meds: No Currently Unemployed: No Education: Decline to Answer Difficulty w/ Childcare or Family Care: No Living arrangements: alone Spiritual care concerns: No Meds Home Medications and Allergies Home Medications Medication Instructions Recorded Confirmed Type allopurinol 100 mg tablet 100 mg PO .COMPLEX 11/06/19 05/21/24 History hydrocodone 10 mg-acetaminophen 1 tablet PO QID PRN Pain 11/06/19 05/21/24 History 325 mg tablet propranolol 20 mg tablet 20 mg PO BID 11/06/19 05/21/24 History glimepiride 4 mg tablet 4 mg PO DAILY 04/24/22 05/21/24 History aspirin 81 mg tablet 81 mg PO DAILY 06/30/22 05/21/24 History ketorolac 0.5 % eye drops 1 drp LEFT EYE TID 05/16/24 05/21/24 History moxifloxacin 0.5 % eye drops 1 drp LEFT EYE BID 05/16/24 05/21/24 History pantoprazole 40 mg tablet,delayed 40 mg PO Q12H 05/16/24 05/21/24 History release rivaroxaban 10 mg tablet (Xarelto) 10 mg PO DAILY #14 tabs 05/20/24 05/21/24 Rx calcium 500 mg (as 1 tablet PO BIDWM #30 tabs 05/21/24 05/21/24 Rx carbonate)-vitamin D3 5 mcg (200 unit) tablet (Oyster Shell Calcium-Vitamin D3) celecoxib 200 mg capsule (Celebrex) 200 mg PO DAILY #30 caps 05/21/24 05/21/24 Rx cyclobenzaprine 10 mg tablet 10 mg PO Q8H PRN Muscle Spasm #180 05/21/24 05/21/24 Rx tabs ferrous sulfate 325 mg (65 mg 325 mg PO BID #60 tabs 05/21/24 05/21/24 Rx iron) tablet,delayed release sennosides 8.6 mg-docusate sodium 2 tab PO BID #60 tabs 05/21/24 05/21/24 Rx 50 mg tablet (Senokot-S) Allergies Allergy/AdvReac Type Severity Reaction Status Date / Time No Known Allergies Allergy Verified 05/16/24 13:37 Vital Signs Vital Signs - 24 hr 05/21/24 20:28 05/22/24 00:00 05/22/24 08:00 Temperature 97.7 F 97.8 F Pulse Rate 90 90 88 Respiratory Rate 16 18 Blood Pressure 135/57 L 152/69 H Pulse Oximetry 98 99 Oxygen Delivery Room Air Room Air 05/22/24 08:57 Temperature Pulse Rate 88 Respiratory Rate Blood Pressure Pulse Oximetry Oxygen Delivery Exam Narrative: General: appears comfortable, in no acute distress Respiratory: breathing is unlabored with even chest rise/fall, lungs are clear without wheezing, rhonchi, and crackles Cardiovascular: Rate and rhythm regular, normal s1s2, no murmur Abdomen: Soft, round, non-tender, active bowel sounds Extremities: No cyanosis, +1 bilateral lower extremity edema with increased swelling into her right thigh, no clubbing. Pulses 2/2. Neuro: A&O x 4 Skin: Warm, dry, intact. Right hip incision with surgical island dressing Assessment and Plan Assessment and plan (1) Closed fracture of neck of right femur: Qualifiers: Encounter type: initial encounter Qualified Code(s): S72.001A - Fracture of unspecified part of neck of right femur, initial encounter for closed fracture Code(s): S72.001A - Fracture of unspecified part of neck of right femur, initial encounter for closed fracture Status: Acute Assessment and Plan: Status post mechanical fall resulting in right hip fracture. * POD 6 bipolar hip replacement * Pain control * Xarelto for DVT prophylaxis * Bowel regimen in place. * PT/OT Swing * Chanda brumfield ordered * Follow-up with ortho outpatient (2) Anemia: Code(s): D64.9 - Anemia, unspecified Status: Acute Assessment and Plan: * Had blood loss post surgery was transfused 1 unit PRBC * Added vitamin B12, folic acid, and iron panel obtained at [facility]. Added ferrous sulfate BID. * Monitor H&H or for any overt bleeding (3) Diabetes: Code(s): E11.9 - Type 2 diabetes mellitus without complications Status: Acute Assessment and Plan: * Accu-Cheks a.c. HS * sliding scale insulin * hold oral diabetic medications * Hemoglobin A1c 5.2 12/2023 * Diabetic diet * consult to dietitian * Optimize Adelso inhibitors and statins. * Watch for hypoglycemia/hypoglycemic protocol ordered (4) Fall from ground level: Code(s): W18.30XA - Fall on same level, unspecified, initial encounter Status: Acute Assessment and Plan: * Pre-admission * PT/OT (Swing) (5) Diastolic dysfunction: Code(s): I51.89 - Other ill-defined heart diseases Status: Acute Assessment and Plan: * Compensated LVEF 70%/diastolic dysfunction. * Does not appear to be in exacerbation * Patient has a history of diastolic dysfunction. * Patient on propranolol 20 mg b.i.d., aspirin 81 mg daily. She follows with Dr. Mckeon. * can consider Lasix if swelling increases * CHANDA brumfield for bilateral lower extremity edema * strict I&O * daily weights Plan Code status: Full code per patient DVT prophylaxis: Xarelto Stress ulcer prophylaxis: Protonix 40 daily PT/OT notes: SWING Disposition: Patient continues admission to [facility] in swing bed for continued rehabilitation post right femur fracture plan is to continue with rehab with the hopes of is able to care for self and performs own ADLs. Quality VTE Prophylaxis VTE prophylaxis: pharmacologic ordered -Patient's previous records reviewed on admission -ER notes reviewed in detail on admission -discussed all findings and current treatment plan with patient/Family/POA -Consultations reviewed for recommendations -Patient's disposition for safe discharge discussed with telehealth case manager Dictation performed by [employer] direct speech recognition software, therefore heel compressor variants and typographical errors may occur. Hospitalist JOSEPH Advance Care Plan I have confirmed that the patient's Advanced Care Plan is present, code status is documented, or surrogate decision maker is listed in patient medical record.: Yes Medication Reconciliation I have utilized all available resources to obtain, update and review the patients current medications (includes all prescriptions, OTC, herbals, cannabis, and nutritional supplements).: Yes The patient is not eligible for med reconciliation; the patient is in a emergent medical situation where delaying treatment would jeopardize the patients health.: No
[2024-05-22 17:05] LABS: Glucose Point of Care 152 mg/dl (65-105)
[2024-05-22 20:09] VITALS: PULSE 77
[2024-05-22] MEDS: rOPINIRole HCL 0.25 MG TABLET PO (20:09)
[2024-05-22 20:11] LABS: Glucose Point of Care 165 mg/dl (65-105)
[2024-05-23] VITALS: BP 141/57; PULSE 77; RESP 16; TEMP 36.6; O2SAT 99
[2024-05-23] MEDS: HYDROcodone/acetaminophen (*CRX) 10-325 MG TABLET 1 TAB PO ×4 (02:35→17:41)
--- NOTE | 2024-05-23 04:15 | PC.NURSE ---
Pt asleep and no signs of discomfort noted.
--- NOTE | 2024-05-23 06:52 | PC.NURSE ---
report to [facility]
[2024-05-23 08:00] VITALS: BP 136/59; PULSE 74; RESP 18; TEMP 36.4; O2SAT 100
[2024-05-23] MEDS: ASPIRIN 81 MG ENTERIC TABLET PO (09:31)
[2024-05-23] MEDS: MOXIFLOXACIN HCL 0.5% 3 ML OPHTH SOLN 1 DROP LEFT EYE ×2 (09:31→21:33)
[2024-05-23] MEDS: CALCIUM/VITAMIN D 250 MG/3.125 MCG (125 I.U.) TABLET 1 TABLET PO ×2 (09:31→17:41)
[2024-05-23] MEDS: KETOROLAC TROMETHAMINE 0.5% LEFT EYE ×3 (09:31→17:43)
[2024-05-23] MEDS: [UNRECOGNIZED DRUG - OTHER] LEFT EYE ×3 (09:31→17:43)
[2024-05-23 09:32] VITALS: PULSE 103
[2024-05-23] MEDS: GABAPENTIN 100 MG CAPSULE PO ×3 (09:32→17:41)
[2024-05-23] MEDS: PANTOPRAZOLE 40 MG TABLET PO ×2 (09:32→21:33)
[2024-05-23] MEDS: PROPRANOLOL HCL 20 MG TABLET PO ×2 (09:32→21:33)
[2024-05-23] MEDS: CELECOXIB 100 MG CAPSULE 200 MG PO (09:32)
[2024-05-23] MEDS: FERROUS SULFATE 325 MG TABLET DR PO ×2 (09:33→17:41)
[2024-05-23] MEDS: RIVAROXABAN 10 MG TABLET PO (09:33)
[2024-05-23 11:46] LABS: Glucose Point of Care 105 mg/dl (65-105)
[2024-05-23 11:46] LABS: Glucose Point of Care 181 mg/dl (65-105)
[2024-05-23 16:00] VITALS: BP 131/97; PULSE 70; RESP 17; TEMP 36.1; O2SAT 100
[2024-05-23 16:55] LABS: Glucose Point of Care 181 mg/dl (65-105)
[2024-05-23 21:33] VITALS: PULSE 71
[2024-05-23 21:33] LABS: Glucose Point of Care 182 mg/dl (65-105)
[2024-05-24] VITALS: BP 140/74; PULSE 71; RESP 16; TEMP 36.4; O2SAT 100
[2024-05-24] MEDS: HYDROcodone/acetaminophen (*CRX) 10-325 MG TABLET 1 TAB PO ×4 (04:31→20:55)
[2024-05-24] MEDS: rOPINIRole HCL 0.25 MG TABLET PO ×2 (06:44→20:56)
[2024-05-24 08:00] VITALS: BP 142/64; PULSE 84; RESP 17; TEMP 36.6; O2SAT 97
[2024-05-24 08:11] LABS: Glucose Point of Care 109 mg/dl (65-105)
[2024-05-24 09:15] VITALS: PULSE 84
[2024-05-24] MEDS: PROPRANOLOL HCL 20 MG TABLET PO ×2 (09:15→20:55)
[2024-05-24] MEDS: [UNRECOGNIZED DRUG - OTHER] LEFT EYE ×3 (09:15→17:44)
[2024-05-24] MEDS: KETOROLAC TROMETHAMINE 0.5% LEFT EYE ×3 (09:15→17:44)
[2024-05-24] MEDS: PANTOPRAZOLE 40 MG TABLET PO ×2 (09:15→20:56)
[2024-05-24] MEDS: MOXIFLOXACIN HCL 0.5% 3 ML OPHTH SOLN 1 DROP LEFT EYE ×2 (09:15→20:56)
[2024-05-24] MEDS: FERROUS SULFATE 325 MG TABLET DR PO ×2 (09:16→17:44)
[2024-05-24] MEDS: RIVAROXABAN 10 MG TABLET PO (09:16)
[2024-05-24] MEDS: ASPIRIN 81 MG ENTERIC TABLET PO (09:16)
[2024-05-24] MEDS: CELECOXIB 100 MG CAPSULE 200 MG PO (09:16)
[2024-05-24] MEDS: CALCIUM/VITAMIN D 250 MG/3.125 MCG (125 I.U.) TABLET 1 TABLET PO ×2 (09:16→17:44)
[2024-05-24] MEDS: GABAPENTIN 100 MG CAPSULE PO ×3 (09:16→17:44)
[2024-05-24] MEDS: allopurinoL 100 MG TABLET PO (09:19)
[2024-05-24 12:10] LABS: Glucose Point of Care 180 mg/dl (65-105)
[2024-05-24 16:00] VITALS: BP 124/54; PULSE 64; RESP 18; TEMP 36.9; O2SAT 97
[2024-05-24 17:13] LABS: Glucose Point of Care 140 mg/dl (65-105)
[2024-05-24] MEDS: SENNA/DOCUSATE SODIUM TABLET 2 TAB PO (17:50)
[2024-05-24 20:55] VITALS: PULSE 67
[2024-05-24 20:55] LABS: Glucose Point of Care 147 mg/dl (65-105)
[2024-05-25] VITALS: BP 131/50; PULSE 65; RESP 18; TEMP 36.6; O2SAT 100
[2024-05-25] MEDS: CYCLOBENZAPRINE HCL 10 MG TABLET PO ×2 (00:54→13:25)
[2024-05-25] MEDS: HYDROcodone/acetaminophen (*CRX) 5-325 MG TABLET 1 TAB PO ×2 (00:54→20:26)
--- NOTE | 2024-05-25 06:42 | PC.NURSE ---
Patient refused ice pack.
[2024-05-25 08:00] VITALS: BP 118/47; PULSE 66; RESP 16; TEMP 36.6; O2SAT 94
[2024-05-25 08:24] LABS: Glucose Point of Care 120 mg/dl (65-105)
[2024-05-25] MEDS: CALCIUM/VITAMIN D 250 MG/3.125 MCG (125 I.U.) TABLET 1 TABLET PO ×2 (08:50→17:52)
[2024-05-25 09:54] VITALS: PULSE 80
[2024-05-25] MEDS: FERROUS SULFATE 325 MG TABLET DR PO ×2 (09:54→17:52)
[2024-05-25] MEDS: PROPRANOLOL HCL 20 MG TABLET PO ×2 (09:54→20:27)
[2024-05-25] MEDS: PANTOPRAZOLE 40 MG TABLET PO ×2 (09:54→20:26)
[2024-05-25] MEDS: ASPIRIN 81 MG ENTERIC TABLET PO (09:54)
[2024-05-25] MEDS: RIVAROXABAN 10 MG TABLET PO (09:54)
[2024-05-25] MEDS: GABAPENTIN 100 MG CAPSULE PO ×3 (09:54→17:52)
[2024-05-25] MEDS: CELECOXIB 100 MG CAPSULE 200 MG PO (09:54)
[2024-05-25] MEDS: HYDROcodone/acetaminophen (*CRX) 10-325 MG TABLET 1 TAB PO ×3 (09:55→17:52)
[2024-05-25] MEDS: KETOROLAC TROMETHAMINE 0.5% LEFT EYE ×3 (09:55→17:53)
[2024-05-25] MEDS: [UNRECOGNIZED DRUG - OTHER] LEFT EYE ×3 (09:55→17:53)
[2024-05-25] MEDS: MOXIFLOXACIN HCL 0.5% 3 ML OPHTH SOLN 1 DROP LEFT EYE ×2 (09:55→20:27)
[2024-05-25 11:44] LABS: Glucose Point of Care 158 mg/dl (65-105)
[2024-05-25 16:00] VITALS: BP 112/70; PULSE 68; RESP 20; TEMP 36.2; O2SAT 98
[2024-05-25 17:08] LABS: Glucose Point of Care 148 mg/dl (65-105)
[2024-05-25] MEDS: polyethylene glycoL 3350 17 GM POWD.PACK PO (17:56)
[2024-05-25 20:27] VITALS: PULSE 75
[2024-05-25 20:39] LABS: Glucose Point of Care 138 mg/dl (65-105)
[2024-05-26] VITALS: BP 117/67; PULSE 75; RESP 16; TEMP 36.8; O2SAT 99
[2024-05-26] MEDS: HYDROcodone/acetaminophen (*CRX) 10-325 MG TABLET 1 TAB PO ×3 (07:32→20:10)
[2024-05-26] MEDS: CYCLOBENZAPRINE HCL 10 MG TABLET PO ×2 (07:32→20:11)
[2024-05-26 08:00] VITALS: BP 137/45; PULSE 66; RESP 18; TEMP 36.6; O2SAT 96
[2024-05-26 08:05] LABS: Glucose Point of Care 118 mg/dl (65-105)
[2024-05-26 09:16] VITALS: PULSE 68
[2024-05-26] MEDS: PROPRANOLOL HCL 20 MG TABLET PO ×2 (09:16→20:10)
[2024-05-26] MEDS: ASPIRIN 81 MG ENTERIC TABLET PO (09:16)
[2024-05-26] MEDS: RIVAROXABAN 10 MG TABLET PO (09:16)
[2024-05-26] MEDS: GABAPENTIN 100 MG CAPSULE PO ×3 (09:16→17:03)
[2024-05-26] MEDS: CALCIUM/VITAMIN D 250 MG/3.125 MCG (125 I.U.) TABLET 1 TABLET PO ×2 (09:16→17:03)
[2024-05-26] MEDS: FERROUS SULFATE 325 MG TABLET DR PO ×2 (09:16→17:03)
[2024-05-26] MEDS: PANTOPRAZOLE 40 MG TABLET PO ×2 (09:16→20:10)
[2024-05-26] MEDS: CELECOXIB 100 MG CAPSULE 200 MG PO (09:16)
[2024-05-26] MEDS: MOXIFLOXACIN HCL 0.5% 3 ML OPHTH SOLN 1 DROP LEFT EYE ×2 (09:17→20:11)
[2024-05-26] MEDS: [UNRECOGNIZED DRUG - OTHER] LEFT EYE ×3 (09:17→17:04)
[2024-05-26] MEDS: KETOROLAC TROMETHAMINE 0.5% LEFT EYE ×3 (09:17→17:04)
[2024-05-26 11:53] LABS: Glucose Point of Care 178 mg/dl (65-105)
[2024-05-26 16:00] VITALS: BP 108/45; PULSE 70; RESP 18; TEMP 36.6; O2SAT 96
[2024-05-26 17:11] LABS: Glucose Point of Care 196 mg/dl (65-105)
[2024-05-26] MEDS: BISACODYL 10 MG SUPPOSITORY RECTAL (18:48)
[2024-05-26 20:10] VITALS: PULSE 69
[2024-05-26 20:10] LABS: Glucose Point of Care 158 mg/dl (65-105)
[2024-05-27] VITALS: BP 117/72; PULSE 69; RESP 16; TEMP 36.7; O2SAT 98
[2024-05-27 05:26] LABS: Hematocrit 26.6 % (35.0-42.0); Hemoglobin 8.5 g/dL (11.7-13.8); Mean Corpuscular Hemoglobin 29.5 pg (27.0-31.0); Mean Corpuscular Volume 92.4 fL (78.0-102.0); Mean Platelet Volume 10.4 fl (9.2-11.8); Platelet Count Result 124 K/mm3 (150-420); Red Blood Count 2.88 M/mm3 (4.20-5.40); Red Cell Distribution Width 19.1 % (11.6-14.4); White Blood Count 3.6 K/mm3 (4.8-10.8)
[2024-05-27 05:37] LABS: INR 1.5; Partial Thromboplastin Time 36.9 Sec (23.9-30.70); Prothrombin Time 15.8 Seconds (9.50-12.1)
[2024-05-27 05:39] LABS: Alanine Aminotransferase 15 U/L (14-59); Albumin Level 1.9 g/dL (3.4-5.0); Alkaline Phosphatase 116 U/L (46-116); Anion Gap 3 mmol/L (4-12); Aspartate Amino Transferase 33 U/L (15-37); Bilirubin,Total 1.4 mg/dL (0.00-1.00); Blood Urea Nitrogen 21 mg/dL (7-18); Calcium 8.3 mg/dL (8.5-10.1); Carbon Dioxide 30 mmol/L (21-32); Chloride 103 mmol/L (98-108); Estimated CRCL calculation 41 ml/min; Estimated Glomerular Filt Rate 52; Glucose 128 mg/dL (70-99); Osmolality Calculated 287 mOsm/kg (285-295); Potassium 4.8 mmol/L (3.5-5.1); Sodium 136 mmol/L (136-145); Total Protein 5.3 g/dL (6.4-8.2)
[2024-05-27 06:11] LABS: Band Neutrophils Percent 0 % (0-6); Basophils Absolute Manual 0.03 K/mm3 (0-0.1); Basophils Percent Manual 1 % (0-1); Eosinophils Absolute Manual 0.07 K/mm3 (0.02-0.50); Eosinophils Percent Manual 2 % (1-6); Lymphocytes Absolute Manual 0.68 K/mm3 (1.1-4.5); Lymphocytes Percent Manual 19 % (18-44); Monocytes Absolute Manual 0.28 K/mm3 (0.1-0.90); Monocytes Percent Manual 8 % (3-9); Neutrophils Absolute Manual 2.52 K/mm3 (1.7-7.2); Neutrophils Percent Manual 70 % (46-73); Total Cells Counted 100
[2024-05-27 06:12] LABS: Platelet Estimate Slightly Decreased (Adequate); Schistocytes None Seen
[2024-05-27] MEDS: HYDROcodone/acetaminophen (*CRX) 5-325 MG TABLET 1 TAB PO (06:52)
[2024-05-27] MEDS: CYCLOBENZAPRINE HCL 10 MG TABLET PO ×2 (06:53→21:37)
[2024-05-27 08:00] VITALS: BP 117/42; PULSE 70; RESP 18; TEMP 36.9; O2SAT 96
[2024-05-27 08:12] LABS: Glucose Point of Care 128 mg/dl (65-105)
[2024-05-27 09:34] VITALS: PULSE 70
[2024-05-27] MEDS: CELECOXIB 100 MG CAPSULE 200 MG PO (09:34)
[2024-05-27] MEDS: GABAPENTIN 100 MG CAPSULE PO ×3 (09:34→17:42)
[2024-05-27] MEDS: PANTOPRAZOLE 40 MG TABLET PO ×2 (09:34→21:34)
[2024-05-27] MEDS: PROPRANOLOL HCL 20 MG TABLET PO ×2 (09:34→21:34)
[2024-05-27] MEDS: CALCIUM/VITAMIN D 250 MG/3.125 MCG (125 I.U.) TABLET 1 TABLET PO ×2 (09:34→17:41)
[2024-05-27] MEDS: ASPIRIN 81 MG ENTERIC TABLET PO (09:34)
[2024-05-27] MEDS: MOXIFLOXACIN HCL 0.5% 3 ML OPHTH SOLN 1 DROP LEFT EYE ×2 (09:35→21:34)
[2024-05-27] MEDS: KETOROLAC TROMETHAMINE 0.5% LEFT EYE ×3 (09:35→17:42)
[2024-05-27] MEDS: [UNRECOGNIZED DRUG - OTHER] LEFT EYE ×3 (09:35→17:42)
[2024-05-27] MEDS: FERROUS SULFATE 325 MG TABLET DR PO ×2 (09:35→17:42)
[2024-05-27] MEDS: RIVAROXABAN 10 MG TABLET PO (09:35)
[2024-05-27] MEDS: HYDROcodone/acetaminophen (*CRX) 10-325 MG TABLET 1 TAB PO ×4 (09:40→21:38)
[2024-05-27] MEDS: allopurinoL 100 MG TABLET PO (09:40)
[2024-05-27 12:18] LABS: Glucose Point of Care 153 mg/dl (65-105)
[2024-05-27 16:00] VITALS: BP 107/52; PULSE 66; RESP 18; TEMP 36.2; O2SAT 98
[2024-05-27 17:15] LABS: Glucose Point of Care 164 mg/dl (65-105)
[2024-05-27 21:34] VITALS: PULSE 69
[2024-05-27] MEDS: rOPINIRole HCL 0.25 MG TABLET PO (21:37)
[2024-05-27 21:53] LABS: Glucose Point of Care 198 mg/dl (65-105)
[2024-05-28] VITALS: BP 112/44; PULSE 70; RESP 16; TEMP 36.7; O2SAT 98
[2024-05-28 07:54] LABS: Glucose Point of Care 112 mg/dl (65-105)
[2024-05-28 08:00] VITALS: BP 105/45; PULSE 78; RESP 16; TEMP 36.8; O2SAT 95
[2024-05-28] MEDS: HYDROcodone/acetaminophen (*CRX) 10-325 MG TABLET 1 TAB PO ×2 (08:30→21:00)
[2024-05-28] MEDS: ASPIRIN 81 MG ENTERIC TABLET PO (08:30)
[2024-05-28] MEDS: CELECOXIB 100 MG CAPSULE 200 MG PO (08:30)
[2024-05-28 08:31] VITALS: PULSE 78
[2024-05-28] MEDS: PROPRANOLOL HCL 20 MG TABLET PO ×2 (08:31→20:41)
[2024-05-28] MEDS: RIVAROXABAN 10 MG TABLET PO (08:31)
[2024-05-28] MEDS: GABAPENTIN 100 MG CAPSULE PO ×3 (08:31→16:52)
[2024-05-28] MEDS: PANTOPRAZOLE 40 MG TABLET PO ×2 (08:31→20:41)
[2024-05-28] MEDS: FERROUS SULFATE 325 MG TABLET DR PO ×2 (08:31→16:52)
[2024-05-28] MEDS: [UNRECOGNIZED DRUG - OTHER] LEFT EYE ×3 (08:32→16:53)
[2024-05-28] MEDS: CALCIUM/VITAMIN D 250 MG/3.125 MCG (125 I.U.) TABLET 1 TABLET PO ×2 (08:32→16:52)
[2024-05-28] MEDS: MOXIFLOXACIN HCL 0.5% 3 ML OPHTH SOLN 1 DROP LEFT EYE ×2 (08:32→20:41)
[2024-05-28] MEDS: KETOROLAC TROMETHAMINE 0.5% LEFT EYE ×3 (08:32→16:53)
[2024-05-28 11:56] LABS: Glucose Point of Care 168 mg/dl (65-105)
[2024-05-28 16:00] VITALS: BP 115/47; PULSE 74; RESP 16; TEMP 36.9; O2SAT 96
[2024-05-28 17:00] LABS: Glucose Point of Care 160 mg/dl (65-105)
[2024-05-28] MEDS: rOPINIRole HCL 0.25 MG TABLET PO (20:40)
[2024-05-28] MEDS: CYCLOBENZAPRINE HCL 10 MG TABLET PO (21:01)
[2024-05-28 21:46] LABS: Glucose Point of Care 163 mg/dl (65-105)
[2024-05-29] VITALS: BP 112/52; PULSE 68; RESP 16; TEMP 36.8; O2SAT 97
[2024-05-29 07:52] LABS: Glucose Point of Care 139 mg/dl (65-105)
[2024-05-29 08:00] VITALS: BP 119/46; PULSE 74; RESP 16; TEMP 36.9; O2SAT 93
[2024-05-29] MEDS: RIVAROXABAN 10 MG TABLET PO (09:02)
[2024-05-29] MEDS: CELECOXIB 100 MG CAPSULE 200 MG PO (09:02)
[2024-05-29] MEDS: GABAPENTIN 100 MG CAPSULE PO ×3 (09:02→16:45)
[2024-05-29 09:03] VITALS: PULSE 80
[2024-05-29] MEDS: FERROUS SULFATE 325 MG TABLET DR PO ×2 (09:03→16:45)
[2024-05-29] MEDS: ASPIRIN 81 MG ENTERIC TABLET PO (09:03)
[2024-05-29] MEDS: PANTOPRAZOLE 40 MG TABLET PO ×2 (09:03→19:34)
[2024-05-29] MEDS: PROPRANOLOL HCL 20 MG TABLET PO ×2 (09:03→19:34)
[2024-05-29] MEDS: CALCIUM/VITAMIN D 250 MG/3.125 MCG (125 I.U.) TABLET 1 TABLET PO ×2 (09:03→16:45)
[2024-05-29] MEDS: HYDROcodone/acetaminophen (*CRX) 10-325 MG TABLET 1 TAB PO ×2 (09:03→19:41)
[2024-05-29] MEDS: KETOROLAC TROMETHAMINE 0.5% LEFT EYE ×3 (09:04→16:45)
[2024-05-29] MEDS: [UNRECOGNIZED DRUG - OTHER] LEFT EYE ×3 (09:04→16:45)
[2024-05-29] MEDS: MOXIFLOXACIN HCL 0.5% 3 ML OPHTH SOLN 1 DROP LEFT EYE ×2 (09:04→19:33)
[2024-05-29] MEDS: allopurinoL 100 MG TABLET PO (09:07)
[2024-05-29 11:35] LABS: Glucose Point of Care 229 mg/dl (65-105)
[2024-05-29] MEDS: INSULIN HUMAN LISPRO (*BKC) 1,000 UNITS/10 ML VIAL SUB-Q (12:01)
[2024-05-29] MEDS: HYDROcodone/acetaminophen (*CRX) 5-325 MG TABLET 1 TAB PO (15:41)
[2024-05-29 16:00] VITALS: BP 93/61; PULSE 75; RESP 16; TEMP 36.4; O2SAT 96
[2024-05-29 16:37] LABS: Glucose Point of Care 152 mg/dl (65-105)
[2024-05-29] MEDS: CYCLOBENZAPRINE HCL 10 MG TABLET PO (19:34)
[2024-05-29] MEDS: rOPINIRole HCL 0.25 MG TABLET PO (19:34)
[2024-05-29 19:53] LABS: Glucose Point of Care 212 mg/dl (65-105)
--- NOTE | 2024-05-29 23:40 | PC.NURSE ---
ASSISTED PATIENT UP TO BEDSIDE COMMODE. BLACK, TARRY BLOODY STOOL NOTED. PATIENT REPORTS THAT SHE FEELS DIZZY, LIGHTHEADED. PALE IN COLOR. RETURNED BACK TO BED AFTER BEING CLEANED UP WITH NEW DEPENDS PLACED.
[2024-05-29 23:57] VITALS: BP 119/57; PULSE 65; RESP 18; TEMP 36.4; O2SAT 98
[2024-05-30 08:00] VITALS: BP 138/44; PULSE 71; RESP 16; TEMP 36.4; O2SAT 96
[2024-05-30 08:03] LABS: Glucose Point of Care 132 mg/dl (65-105)
--- NOTE | 2024-05-30 09:09 | P.PNIM_ITS ---
Progress Note: A&P Assessment and Plan (1) Closed fracture of neck of right femur: Qualifiers: Encounter type: initial encounter Qualified Code(s): S72.001A - Fracture of unspecified part of neck of right femur, initial encounter for cl osed fracture Code(s): S72.001A - Fracture of unspecified part of neck of right femur, initial encounter for closed fracture Status: Acute Assessment and Plan: Status post mechanical fall resulting in right hip fracture. 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 * Continue PT and OT * Continue david hose * Follow-up with ortho on June 06 for staple removal * Plan for discharge on Monday with [facility] (2) Anemia: Code(s): D64.9 - Anemia, unspecified Status: Acute Assessment and Plan: * Continue ferrous sulfate BID (3) Diabetes: Code(s): E11.9 - Type 2 diabetes mellitus without complications Status: Acute Assessment and Plan: * Blood sugars ranging 132-229 * Hgb A1C 5.2 on 12/13/2023 * will repeat hemoglobin A1c today * Accu checks AC/HS * low-doseSSI ordered * hypoglycemic protocol in place * Diabetic diet ordered * continue to hold glimepiride (4) Fall from ground level: Code(s): W18.30XA - Fall on same level, unspecified, initial encounter Status: Acute Assessment and Plan: fall from ground level landing on right hip, of note (5) Diastolic dysfunction: Code(s): I51.89 - Other ill-defined heart diseases Status: Acute Assessment and Plan: * continue daily weights * continues strict I&O * continue aspirin and propranolol * last echo shows an LV systolic function 70% with diastolic dysfunction (6) Hypomagnesemia: Code(s): E83.42 - Hypomagnesemia Status: Acute Assessment and Plan: * magnesium level 1.7 * will give magnesium oxide 400 mg today Time Spent With Patient Time with patient: 25 - 35 minutes Subjective Date/time seen: 05/30/24 09:09 Interval history: Interval history: This is an 84-year-old female who presented on 05/22/2024 from [facility] status post bipolar hip replacement on 05/16/2024 for right femoral neck fracture. She came to [facility] for swing bed program and continued rehab needs. plan is for patient to go home on Monday with [facility]. she will be seeing orthopedic surgeon back on June 04 for staple removal. Subjective: Patient denies any fever, chills, nausea, vomiting, diarrhea, abdominal pain, chest pain, shortness of breath. patient endorses right hip pain /10. labs and EMR reviewed. Review of Systems Review of Systems: Had complaints neuropathy pain bilateral All systems reviewed & are unremarkable except as noted in HPI and below Constitutional: Constitutional: Reports as per HPI and Reports no additional constitutional complaints Eyes: Eyes: Reports as per HPI and Reports no additional eye complaints ENT: Reports system reviewed and no additional complaints, except as documented and Reports as per HPI Cardiovascular: Cardiovascular: Reports as per HPI and Reports no additional cardiovascular complaints Respiratory: Respiratory: Reports as per HPI and Reports no additional respiratory complaints Gastrointestinal: Gastrointestinal: Reports as per HPI and Reports no additional gastrointestinal complaints Genitourinary: Genitourinary: Reports no additional female genitourinary complaints and Reports as per HPI Musculoskeletal: Musculoskeletal: Reports no additional musculoskeletal complaints and Reports as per HPI Integumentary/Breasts: Skin/Breast: Reports system reviewed and no additional complaints, except as docu and Reports as per HPI Neurologic: Reports system reviewed and no additional complaints, except as documented and Reports as per HPI Psychiatric: Psychiatric: Reports no additional psychiatric complaints and Reports as per HPI Exam Narrative: General: In no acute distress, well nourished Head: atraumatic, no encephalopathy Eyes: PERRLA, sclera clear ENT: moist mucous membranes, nasal passages clear Neck: supple, no JVD, no adenopathy, trachea midline Cardiac: Normal S1 and S2. No murmur, gallops or friction rubs, peripheral pulses intact. Respiratory: Lungs clear to auscultation, no adventitious lung sounds, currently on room air Gastrointestinal: soft, non-distended, non-tender, normoactive bowel sounds. : voiding without difficulty. Extremities: moves all extremities well, no edema, good ROM, strength 5/5 Skin: jennie right hip Neuro: Alert and oriented x4, cranial nerves intact, no neuro deficits. Psych: normal mood, normal affect, interactive Objective Data Vital Signs Vital Signs: Vital Signs - 24 hr 05/29/24 16:00 05/29/24 23:57 Temperature 97.5 F L 97.6 F Pulse Rate 75 65 Respiratory Rate 16 18 Blood Pressure 93/61 L 119/57 L Pulse Oximetry 96 98 Oxygen Delivery Room Air Room Air Intake/Output Intake/Output: Intake & Output 05/27/24 05/28/24 05/29/24 05/30/24 23:59 23:59 23:59 23:59 Intake Total 2089 1280 1180 320 Balance 2089 1280 1180 320 Meds/Results Medications: Active Medications Generic Name Dose Route Start Last Admin Trade Name Freq PRN Reason Stop Dose Admin Acetaminophen 650 mg 05/21/24 14:54 Acetaminophen 325 Mg Tablet PO Q4H PRN Mild Pain (1-3) or Fever Hydrocodone Bitart/Acetaminophen 1 tab 05/21/24 14:58 05/29/24 19:41 Hydrocodone/Acetaminophen (*Crx) 10-325 Mg Tablet PO 1 tab Q4H PRN Administration Pain 7-10 Hydrocodone Bitart/Acetaminophen 1 tab 05/21/24 15:13 05/29/24 15:41 Hydrocodone/Acetaminophen (*Crx) 5-325 Mg Tablet PO 1 tab Q4H PRN Administration Pain Rated 4-6 Allopurinol 100 mg 05/22/24 09:00 05/29/24 09:07 Allopurinol 100 Mg Tablet PO 100 mg [id number] JOSE Administration Aspirin 81 mg 05/22/24 09:00 05/29/24 09:03 Aspirin 81 Mg Enteric Tablet PO 81 mg QAM JOSE Administration Calcium Carbonate 1 tablet 05/21/24 17:00 05/29/24 16:45 Calcium/Vitamin D 250 Mg/3.125 Mcg (125 I.U.) Tablet PO 1 tablet BIDWM JOSE Administration Celecoxib 200 mg 05/22/24 09:00 05/29/24 09:02 Celecoxib 100 Mg Capsule PO 200 mg DAILY JOSE Administration Cyclobenzaprine HCl 10 mg 05/21/24 14:59 05/29/24 19:34 Cyclobenzaprine Hcl 10 Mg Tablet PO 10 mg Q8H PRN Administration Muscle Spasm Dextrose 12.5 gm 05/21/24 15:02 Dextrose 50% 25 Gm/50 Ml Syringe IV PUSH PRN PRN Hypoglycemia Protocol Ferrous Sulfate 325 mg 05/21/24 17:00 05/29/24 16:45 Ferrous Sulfate [address] PO 325 mg BID JOSE Administration Gabapentin 100 mg 05/22/24 09:00 05/29/24 16:45 Gabapentin 100 Mg Capsule PO 100 mg TID JOSE Administration Glucagon 1 mg 05/21/24 15:02 Glucagon For Inj 1 Mg Vial IM PRN PRN Hypoglycemia Protocol Glucose 15 gm 05/21/24 15:02 Glucose Oral Gel 15 Gm Of Glucse In 37.5 Gm Tube PO PRN PRN Hypoglycemia Protocol Dextrose 1,000 mls @ 100 mls/hr 05/21/24 15:02 Dextrose 5% 1,000 Ml IVPB PRN PRN Hypoglycemia Protocol Insulin Human Lispro 2 - 5 units 05/21/24 17:00 05/30/24 08:00 Insulin Human Lispro (*Bkc) 1,000 Units/10 Ml Vial SUB-Q Not Given TIDWM JOSE Protocol Moxifloxacin HCl 1 drop 05/21/24 21:00 05/29/24 19:33 Moxifloxacin Hcl 0.5% 3 Ml Ophth Soln LEFT EYE 1 drop Q12HR JOSE Administration Nonformulary Drug ( 1 drop 05/21/24 17:00 05/29/24 16:45 Ketorolac LEFT EYE 06/20/24 16:59 1 drop Tromethamine 0.5 % TID JOSE Administration Ophthalmic Soln) Pantoprazole Sodium 40 mg 05/21/24 21:00 05/29/24 19:34 Pantoprazole 40 Mg Tablet PO 40 mg Q12HR JOSE Administration Polyethylene Glycol 17 gm 05/23/24 17:43 05/25/24 17:56 Polyethylene Glycol 3350 17 Gm Powd.Pack PO 17 gm QAM PRN Administration Constipation Propranolol HCl 20 mg 05/21/24 21:00 05/29/24 19:34 Propranolol Hcl 20 Mg Tablet PO 20 mg Q12HR JOSE Administration Rivaroxaban 10 mg 05/22/24 09:00 05/29/24 09:02 Rivaroxaban 10 Mg Tablet PO 06/21/24 21:00 10 mg DAILY JOSE Administration Ropinirole HCl 0.25 mg 05/27/24 21:00 05/29/24 19:34 Ropinirole Hcl 0.25 Mg Tablet PO 0.25 mg HS JOSE Administration Senna/Docusate Sodium 2 tab 05/23/24 17:43 05/24/24 17:50 Senna/Docusate Sodium Tablet PO 2 tab BID PRN Administration Constipation Labs Labs: Laboratory Results - last 24 hr 05/29/24 05/29/24 05/29/24 11:30 16:31 19:48 POC Capillary Glucose 229 H 152 H 212 H 05/30/24 07:58 POC Capillary Glucose 132 H Quality VTE Prophylaxis VTE prophylaxis: pharmacologic ordered
[2024-05-30 09:21] VITALS: PULSE 70
[2024-05-30] MEDS: CALCIUM/VITAMIN D 250 MG/3.125 MCG (125 I.U.) TABLET 1 TABLET PO ×2 (09:21→17:44)
[2024-05-30] MEDS: ASPIRIN 81 MG ENTERIC TABLET PO (09:21)
[2024-05-30] MEDS: SENNA/DOCUSATE SODIUM TABLET 2 TAB PO (09:21)
[2024-05-30] MEDS: PROPRANOLOL HCL 20 MG TABLET PO ×2 (09:21→21:09)
[2024-05-30] MEDS: HYDROcodone/acetaminophen (*CRX) 10-325 MG TABLET 1 TAB PO (09:22)
[2024-05-30] MEDS: RIVAROXABAN 10 MG TABLET PO (09:22)
[2024-05-30] MEDS: KETOROLAC TROMETHAMINE 0.5% LEFT EYE ×3 (09:22→17:45)
[2024-05-30] MEDS: PANTOPRAZOLE 40 MG TABLET PO ×2 (09:22→21:09)
[2024-05-30] MEDS: [UNRECOGNIZED DRUG - OTHER] LEFT EYE ×3 (09:22→17:45)
[2024-05-30] MEDS: MOXIFLOXACIN HCL 0.5% 3 ML OPHTH SOLN 1 DROP LEFT EYE ×2 (09:22→21:09)
[2024-05-30] MEDS: CELECOXIB 100 MG CAPSULE 200 MG PO (09:22)
[2024-05-30] MEDS: CYCLOBENZAPRINE HCL 10 MG TABLET PO (09:22)
[2024-05-30] MEDS: GABAPENTIN 100 MG CAPSULE PO (09:22)
[2024-05-30] MEDS: FERROUS SULFATE 325 MG TABLET DR PO ×2 (09:22→17:44)
[2024-05-30 09:45] LABS: Basophils Absolute Auto 0.02 K/mm3 (0.00-0.10); Basophils Percent Auto 0.4 % (0.0-1.0); Eosinophils Absolute Auto 0.16 K/mm3 (0.02-0.50); Eosinophils Percent Auto 2.9 % (1.0-6.0); Hematocrit 28.4 % (35.0-42.0); Hemoglobin 8.5 g/dL (11.7-13.8); Immature Granulocyte Absolute 0.03 K/mm3 (0.00-0.00); Immature Granulocyte Percent A 0.5 % (0.0-0.0); Lymphocytes Absolute Auto 0.93 K/mm3 (1.10-4.50); Mean Corpuscular HGB Conc 29.9 g/dL (32-36); Mean Corpuscular Hemoglobin 30.9 pg (27.0-31.0); Mean Corpuscular Volume 103.3 fL (78.0-102.0); Mean Platelet Volume 10.6 fl (9.2-11.8); Monocytes Absolute Auto 0.32 K/mm3 (0.10-0.90); Monocytes Percent Auto 5.8 % (2.0-11.0); Neutrophils Absolute Auto 4.02 K/mm3 (1.70-7.20); Neutrophils Percent Auto 73.4 % (50.0-70.0); Nucleated Red Blood Cells Absolute Auto 0.02 K/mm3 (0.00-0.00); Nucleated Red Blood Cells Perc 0.4 % (0-0.0); Platelet Count Result 155 K/mm3 (150-420); Red Blood Count 2.75 M/mm3 (4.20-5.40); Red Cell Distribution Width 21.6 % (11.6-14.4); White Blood Count 5.5 K/mm3 (4.8-10.8)
[2024-05-30 10:02] LABS: Alanine Aminotransferase 18 U/L (14-59); Albumin Level 1.5 g/dL (3.4-5.0); Alkaline Phosphatase 123 U/L (46-116); Anion Gap 8 mmol/L (4-12); Aspartate Amino Transferase 52 U/L (15-37); Bilirubin,Total 1.4 mg/dL (0.00-1.00); Blood Urea Nitrogen 32 mg/dL (7-18); Calcium 8.3 mg/dL (8.5-10.1); Carbon Dioxide 24 mmol/L (21-32); Chloride 101 mmol/L (98-108); Estimated CRCL calculation 37 ml/min; Estimated Glomerular Filt Rate 46; Glucose 175 mg/dL (70-99); Hemoglobin A1C 5.2 % (<5.7); Magnesium 1.7 mg/dL (1.8-2.4); Osmolality Calculated 286 mOsm/kg (285-295); Potassium 4.9 mmol/L (3.5-5.1); Sodium 133 mmol/L (136-145); Total Protein 5.9 g/dL (6.4-8.2)
[2024-05-30 12:12] LABS: Glucose Point of Care 209 mg/dl (65-105)
[2024-05-30] MEDS: MAGNESIUM OXIDE 400 MG TABLET PO (12:14)
[2024-05-30] MEDS: INSULIN HUMAN LISPRO (*BKC) 1,000 UNITS/10 ML VIAL SUB-Q (12:14)
[2024-05-30 16:00] VITALS: BP 123/52; PULSE 75; RESP 16; TEMP 36.3; O2SAT 97
[2024-05-30 16:25] LABS: Glucose Point of Care 168 mg/dl (65-105)
--- NOTE | 2024-05-30 16:36 | PC.NURSE ---
Patient very drowsy today, gabapentin held since AM dose. No pain meds or muscle relaxers given since AM. Patient having difficulty following commands, like turning while walking. Patient states she doesn't feel right. Vital signs and blood sugar checked and recorded.
[2024-05-30 20:00] VITALS: PULSE 74; RESP 17; O2SAT 98
[2024-05-30 20:52] LABS: Glucose Point of Care 241 mg/dl (65-105)
[2024-05-30 21:09] VITALS: PULSE 74
[2024-05-30] MEDS: rOPINIRole HCL 0.25 MG TABLET PO (21:09)
--- NOTE | 2024-05-30 21:50 | PC.NURSE ---
Patient transferred to B[facility] with walker, gait belt and 1 assist, patient unstable to walk to bathroom. Noted to have red smear in depend with dark tarry stools, patient states she needs time to have a BM, call light in reach.
--- NOTE | 2024-05-30 22:00 | PC.NURSE ---
Patient noted yelling out in room, on commode with call light within reach, patient assisted with nish-care, large black tarry stool noted with lupe red blood mixed with urine. Stool and blood noted on linens at foot of bed, patient had transferred self. Patient unable to answer questions regarding self-transfer, reminded and encouraged to use call light. A&Ox1 at this time. CARAMEL COLORING OPERATOR updated.
[2024-05-30 22:16] VITALS: BP 107/52; PULSE 74; RESP 17; TEMP 36.5; O2SAT 98
--- NOTE | 2024-05-30 23:00 | PC.NURSE ---
ASSUMED CARE. REPORT RECEIVED FROM ARACELI ERNST
[2024-05-31] VITALS: BP 134/82; PULSE 95; RESP 20; TEMP 36.2; O2SAT 98
--- NOTE | 2024-05-31 00:07 | PC.NURSE ---
THIS RN HAS RETURNED TO THE DESK. NOTIFIED ARACELI RN, CHARGE NURSE, THAT PATIENT HAS LARGE AMOUNT OF BLACK, TARRY STOOL WITH BLOOD IN BEDSIDE COMMODE. ORDER PLACED FOR NEW H/H. LAB WAS NOTIFIED. BED ALARM BACK IN PLACE.
--- NOTE | 2024-05-31 00:11 | PC.NURSE ---
JAMI WITH LAB AT THE BEDSIDE
[2024-05-31 00:21] LABS: Basophils Absolute Auto 0.03 K/mm3 (0.00-0.10); Basophils Percent Auto 0.4 % (0.0-1.0); Eosinophils Absolute Auto 0.13 K/mm3 (0.02-0.50); Eosinophils Percent Auto 1.7 % (1.0-6.0); Hematocrit 23.7 % (35.0-42.0); Hemoglobin 7.7 g/dL (11.7-13.8); Immature Granulocyte Absolute 0.04 K/mm3 (0.00-0.00); Immature Granulocyte Percent A 0.5 % (0.0-0.0); Lymphocytes Absolute Auto 0.96 K/mm3 (1.10-4.50); Lymphocytes Percent Auto 12.5 % (18.0-42.0); Mean Corpuscular HGB Conc 32.5 g/dL (32-36); Mean Corpuscular Hemoglobin 30.8 pg (27.0-31.0); Mean Corpuscular Volume 94.8 fL (78.0-102.0); Mean Platelet Volume 10.2 fl (9.2-11.8); Monocytes Absolute Auto 0.49 K/mm3 (0.10-0.90); Monocytes Percent Auto 6.4 % (2.0-11.0); Neutrophils Absolute Auto 6.02 K/mm3 (1.70-7.20); Neutrophils Percent Auto 78.5 % (50.0-70.0); Platelet Count Result 185 K/mm3 (150-420); Red Cell Distribution Width 21.7 % (11.6-14.4); White Blood Count 7.7 K/mm3 (4.8-10.8)
--- NOTE | 2024-05-31 00:40 | PC.NURSE ---
PATIENT IS UNCOMFORTABLE IN THE BED. RESTLESS. REQUESTED TO SIT IN THE CHAIR. ASSISTED PATIENT UP TO CHAIR WITH GAIT BELT AND THIS RN BY HER SIDE. ELEVATED LEGS AND PLACED PILLOW UNDER HER LEGS. COVERED WITH BLANKETS. BEDSIDE TABLE NEXT TO PATIENT. ICE WATER WAS GIVEN. CALL LIGHT IN REACH.
--- NOTE | 2024-05-31 01:13 | PC.NURSE ---
ASSISTED PATIENT UP FROM CHAIR TO BEDSIDE COMMODE WITH GAIT BELT AND STANDBY ASSIST.
--- NOTE | 2024-05-31 01:39 | PC.NURSE ---
PATIENT HAS RETURNED TO THE BED WITH GAIT BELT AND WALKER FOR ASSISTANCE. PATIENT STANDING BY THE BED WHEN MY LEGS GAVE OUT . PATIENT IMMEDIATLY SAT ON THE BED. HELPED PATIENT GET HER LEGS UP ON THE BED DUE TO WEAKNESS. PATIENT HAS PRESSURE SORE TO COCCYX. WILL PLACE MEPILEX ON WOUND AND NOTIFY PROVIDER IN THE AM. COVERED WITH BLANKETS. BED ALARM TURNED BACK ON. CALL LIGHT IN REACH.
--- NOTE | 2024-05-31 02:39 | PC.NURSE ---
ASSISTED PATIENT UP TO BEDSIDE COMMODE.
--- NOTE | 2024-05-31 02:50 | PC.NURSE ---
ASSISTED PATIENT BACK TO BED OFF COMMODE. BLACK, TARRY STOOL WITH COPIOUS AMOUNT OF BLOOD NOTED. PATIENT IS PALE, WEAK. STATES SHE DOES NOT FEEL WELL. NOTIFIED ARACELI ERNST, CHARGE NURSE, WHO CALLED TRAINING DEVELOPER PROVIDER.
[2024-05-31 02:57] VITALS: BP 141/57; PULSE 88; RESP 22; TEMP 36.6; O2SAT 99
[2024-05-31] MEDS: HYDROcodone/acetaminophen (*CRX) 10-325 MG TABLET 1 TAB PO (03:11)
--- NOTE | 2024-05-31 04:32 | PC.NURSE ---
PATIENT WAS ASSISTED BACK TO BED FROM BEDSIDE COMMODE USING THE JOEY STEDY. PATIENT HAS BEEN HAVING DIFFICULTY TRANSFERRING FROM BED TO BEDSIDE COMMODE AND VICE VERSA. PATIENT STATES SHE FEELS WEAK. DIZZY. CHARGE NURSE, ARACELI ERNST, AWARE.
--- NOTE | 2024-05-31 05:24 | PC.NURSE ---
THIS RN USED THE JOEY MCCLENDON TO HELP PATIENT GET UP TO BEDSIDE COMMODE.
[2024-05-31 05:45] LABS: Hematocrit 23.2 % (35.0-42.0); Hemoglobin 7.6 g/dL (11.7-13.8); Mean Corpuscular HGB Conc 32.8 g/dL (32-36); Mean Corpuscular Hemoglobin 30.9 pg (27.0-31.0); Mean Corpuscular Volume 94.3 fL (78.0-102.0); Mean Platelet Volume 10.2 fl (9.2-11.8); Platelet Count Result 195 K/mm3 (150-420); Red Blood Count 2.46 M/mm3 (4.20-5.40); Red Cell Distribution Width 21.4 % (11.6-14.4); White Blood Count 9.2 K/mm3 (4.8-10.8)
--- NOTE | 2024-05-31 05:50 | PC.NURSE ---
ASSISSTED PATIENT BACK TO BED FROM B[facility] WITH JOEY MCCLENDON. WARM BLANKETS GIVEN. REPOSITIONED FOR COMFORT.
--- NOTE | 2024-05-31 06:55 | PC.NURSE ---
REPORT GIVEN TO PATRICIA ERNST
[2024-05-31 07:15] LABS: Glucose Point of Care 181 mg/dl (65-105)
--- NOTE | 2024-05-31 07:39 | PC.NURSE ---
Verbal order for CT Brain W/O contrast read back and confirmed, placed per order.
[2024-05-31] MEDS: HYDROcodone/acetaminophen (*CRX) 5-325 MG TABLET 1 TAB PO (07:42)
[2024-05-31] MEDS: CALCIUM/VITAMIN D 250 MG/3.125 MCG (125 I.U.) TABLET 1 TABLET PO ×2 (07:44→16:50)
[2024-05-31 08:00] VITALS: BP 160/51; PULSE 90; RESP 22; TEMP 36.6; O2SAT 95; O2SAT 96
--- NOTE | 2024-05-31 09:09 | PC.NURSE ---
Pt brought back from CT w/ and assisted to chair w/ use of pascale steady. She is confused at this time and noted to have a dry cough that is weak and ineffective. Pt noted having some SOB w/ exertion.
[2024-05-31 09:19] VITALS: PULSE 90
[2024-05-31] MEDS: PROPRANOLOL HCL 20 MG TABLET PO ×2 (09:19→20:12)
[2024-05-31] MEDS: PANTOPRAZOLE 40 MG TABLET PO ×2 (09:20→20:11)
[2024-05-31] MEDS: GABAPENTIN 100 MG CAPSULE PO (09:20)
[2024-05-31] MEDS: MOXIFLOXACIN HCL 0.5% 3 ML OPHTH SOLN 1 DROP LEFT EYE ×2 (09:21→20:13)
[2024-05-31] MEDS: KETOROLAC TROMETHAMINE 0.5% LEFT EYE ×2 (09:21→12:59)
[2024-05-31] MEDS: [UNRECOGNIZED DRUG - OTHER] LEFT EYE ×2 (09:21→12:59)
[2024-05-31] MEDS: allopurinoL 100 MG TABLET PO (09:27)
[2024-05-31] MEDS: FERROUS SULFATE 325 MG TABLET DR PO ×2 (10:15→16:50)
[2024-05-31] MEDS: traMADol HCL (*CRX) 25 MG TABLET PO (10:33)
--- NOTE | 2024-05-31 10:36 | PC.NURSE ---
Pt calling out and in continuous pain, she states she is unable to get comfortable. CHAIRMAN & CEO in to evaluate pt. and med changes made and added. Attempting numerous times to reposition pt to help w/ pain. Continuing to monitor, call sibley at pt. side.
--- NOTE | 2024-05-31 10:57 | PC.NURSE ---
Pt was on phone w/ her daughter and asking her to come here. Informed CAGE OPERATOR Tila Mcghee that pts daughter is coming to see her. Pt is extremely anxoius, reassurance provided, informed charge gang weigher and CAGE OPERATOR about pts anxouisness.
--- NOTE | 2024-05-31 11:26 | PC.NURSE ---
Pt taken down to CT for scan as per order.
[2024-05-31 11:51] LABS: Glucose Point of Care 179 mg/dl (65-105)
--- NOTE | 2024-05-31 12:16 | P.PNIM_ITS ---
Progress Note: A&P Assessment and Plan (1) Closed fracture of neck of right femur: Qualifiers: Encounter type: initial encounter Qualified Code(s): S72.001A - Fracture of unspecified part of neck of right femur, initial encounter for cl osed fracture Code(s): S72.001A - Fracture of unspecified part of neck of right femur, initial encounter for closed fracture Status: Acute Assessment and Plan: Status post mechanical fall resulting in right hip fracture. 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 * Continue PT and OT * Continue david hose * Follow-up with ortho on June 06 for staple removal (2) Altered mental status: Code(s): R41.82 - Altered mental status, unspecified Status: Acute Assessment and Plan: patient receiving quite a few medications that can cause altered mental status including Neurontin, Flexeril, pain medications such as [place] that may be co ntributing to her altered mental status. * head CT showed chronic sinusitis, age-related changes in the brain including mild diffuse volume loss and mild scattered white matter hypoattenuation consistent with chronic small-vessel ischemic disease. * We will hold Neurontin, Flexeril, Celebrex due to decreased mental status * blood sugars ranging 179 to 241 * UA ordered with reflex to culture * continue neuro checks (3) GI bleeding: Code(s): K92.2 - Gastrointestinal hemorrhage, unspecified Status: Acute Assessment and Plan: history of anemia, currently on ferrous sulfate b.i.d. history of internal hemorrhoids * hemoglobin 8.5 on 05/30/2024 * now down to 7.6 today * holding Xarelto and aspirin today * heart rate and blood pressure stable, patient not symptomatic * continue to trend * right hip inspected for hematoma which was not palpable, she does have quite a bit of ecchymosis and bruising to that right hip * CT of the abdomen and pelvis was negative for any hematoma or bleeding, abscess. Shown right total hip arthroplasty and well anatomical alignment, diverticulosis of the sigmoid colon no evidence of diverticulitis, cirrhosis, splenomegaly, moderate ascites noted. (4) Anemia: Code(s): D64.9 - Anemia, unspecified Status: Acute Assessment and Plan: * Continue ferrous sulfate BID (5) Fall from ground level: Code(s): W18.30XA - Fall on same level, unspecified, initial encounter Status: Acute Assessment and Plan: fall from ground level landing on right hip, of note (6) Diabetes: Code(s): E11.9 - Type 2 diabetes mellitus without complications Status: Acute Assessment and Plan: * Blood sugars ranging 132-229 * Hgb A1C 5.2 on 12/13/2023 * will repeat hemoglobin A1c today * Accu checks AC/HS * low-doseSSI ordered * hypoglycemic protocol in place * Diabetic diet ordered * continue to hold glimepiride (7) Diastolic dysfunction: Code(s): I51.89 - Other ill-defined heart diseases Status: Acute Assessment and Plan: * continue daily weights * continues strict I&O * continue aspirin and propranolol * last echo shows an LV systolic function 70% with diastolic dysfunction (8) Hypomagnesemia: Code(s): E83.42 - Hypomagnesemia Status: Acute Assessment and Plan: * magnesium level 1.7 * will give magnesium oxide 400 mg today Time Spent With Patient Time with patient: Greater than 35 minutes Subjective Date/time seen: 05/31/24 12:16 Interval history: Interval history: This is an 84-year-old female who presented on 05/22/2024 from [facility] status post bipolar hip replacement on 05/16/2024 for right femoral neck fracture. she will be seeing orthopedic surgeon back on June 04 for staple removal. Subjective: patient is very restless today and seems to not be able to get comfortable in the bed. She is reporting excruciating pain in her right hip. Overnight she did not sleep well it was noted to have some dark tarry stools with blood mixed in. Her Xarelto was held well as her aspirin today. Yesterday she had more decreased mental status according to the family and we changed her Neurontin to daily due to that. Labs reviewed. Review of Systems Review of Systems: Had complaints neuropathy pain bilateral All systems reviewed & are unremarkable except as noted in HPI and below Constitutional: Constitutional: Reports as per HPI and Reports no additional constitutional complaints Eyes: Eyes: Reports as per HPI and Reports no additional eye complaints ENT: Reports system reviewed and no additional complaints, except as documented and Reports as per HPI Cardiovascular: Cardiovascular: Reports as per HPI and Reports no additional cardiovascular complaints Respiratory: Respiratory: Reports as per HPI and Reports no additional res piratory complaints Gastrointestinal: Gastrointestinal: Reports as per HPI and Reports no additional gastrointestinal complaints Genitourinary: Genitourinary: Reports no additional female genitourinary complaints and Reports as per HPI Musculoskeletal: Musculoskeletal: Reports no additional musculoskeletal complaints and Reports as per HPI Integumentary/Breasts: Skin/Breast: Reports system reviewed and no additional complaints, except as docu and Reports as per HPI Neurologic: Reports system reviewed and no additional complaints, except as documented and Reports as per HPI Psychiatric: Psychiatric: Reports no additional psychiatric complaints and Reports as per HPI Exam Narrative: General: In no acute distress, well nourished Head: Acute encephalopathy likely due to polypharmacy Eyes: PERRLA, sclera clear Cardiac: Normal S1 and S2. RRR, No murmur, gallops or friction rubs, peripheral pulses intact. Respiratory: Lungs clear to auscultation, no adventitious lung sounds, currently on room air Gastrointestinal: soft, non-distended, non-tender, normoactive bowel sounds. : voiding without difficulty. Extremities: moves all extremities well, no edema Skin: jennie right hip, ecchymosis around incision and anterior thigh Neuro: Alert and confused Objective Data Vital Signs Vital Signs: Vital Signs - 24 hr 05/30/24 16:00 05/30/24 21:09 05/30/24 22:16 Temperature 97.3 F L 97.7 F Pulse Rate 75 74 74 Respiratory Rate 16 17 Blood Pressure 123/52 L 107/52 L Pulse Oximetry 97 98 Oxygen Delivery Room Air Room Air 05/30/24 20:00 05/31/24 00:00 05/31/24 02:57 Temperature 97.2 F L 97.9 F Pulse Rate 74 95 88 Respiratory Rate 17 20 22 H Blood Pressure 134/82 141/57 H Pulse Oximetry 98 98 99 Oxygen Delivery Room Air Room Air Room Air 05/31/24 08:00 05/31/24 09:19 05/31/24 08:00 Temperature 97.9 F Pulse Rate 90 90 90 Respiratory Rate 22 H 22 H Blood Pressure 160/51 H Pulse Oximetry 96 95 Oxygen Delivery Room Air Room Air Intake/Output Intake/Output: Intake & Output 11/2605/29/24 05/30/24 05/31/24 23:59 23:59 23:59 23:59 Intake Total 1280 1180 1590 750 Output Total 500 600 Balance 1280 1180 1090 150 Meds/Results Medications: Active Medications Generic Name Dose Route Start Last Admin Trade Name Freq PRN Reason Stop Dose Admin Acetaminophen 1,000 mg 05/31/24 17:00 Acetaminophen 500 Mg Tablet PO BID [facility] Hydrocodone Bitart/Acetaminophen 1 tab 05/31/24 11:03 Hydrocodone/Acetaminophen (*Crx) 7.5-325 Mg Tablet PO Q4H PRN Pain Rated 7-10 Allopurinol 100 mg 05/22/24 09:00 05/31/24 09:27 Allopurinol 100 Mg Tablet PO 100 mg [id number] JOSE Administration Aspirin 81 mg 05/22/24 09:00 05/31/24 10:12 Aspirin 81 Mg Enteric Tablet PO Not Given QAM [facility] Calcium Carbonate 1 tablet 05/21/24 17:00 05/31/24 07:44 Calcium/Vitamin D 250 Mg/3.125 Mcg (125 I.U.) Tablet PO 1 tablet BIDWM [facility] Administration Celecoxib 200 mg 05/22/24 09:00 05/31/24 10:12 Celecoxib 100 Mg Capsule PO Not Given DAILY [facility] Cyclobenzaprine HCl 10 mg 05/21/24 14:59 05/30/24 09:22 Cyclobenzaprine Hcl 10 Mg Tablet PO 10 mg Q8H PRN Administration Muscle Spasm Dextrose 12.5 gm 05/21/24 15:02 Dextrose 50% 25 Gm/50 Ml Syringe IV PUSH PRN PRN Hypoglycemia Protocol Ferrous Sulfate 325 mg 05/21/24 17:00 05/31/24 10:15 Ferrous Sulfate [address] PO 325 mg BID JOSE Administration Gabapentin 100 mg 05/31/24 09:00 05/31/24 09:20 Gabapentin 100 Mg Capsule PO 100 mg DAILY JOSE Administration Glucagon 1 mg 05/21/24 15:02 Glucagon For Inj 1 Mg Vial IM PRN PRN Hypoglycemia Protocol Glucose 15 gm 05/21/24 15:02 Glucose Oral Gel 15 Gm Of Glucse In 37.5 Gm Tube PO PRN PRN Hypoglycemia Protocol Dextrose 1,000 mls @ 100 mls/hr 05/21/24 15:02 Dextrose 5% 1,000 Ml IVPB PRN PRN Hypoglycemia Protocol Ibuprofen 600 mg 05/31/24 10:08 Ibuprofen 600 Mg Tablet PO Q6H PRN Pain Rated 1-3 Insulin Human Lispro 2 - 5 units 05/21/24 17:00 05/31/24 11:52 Insulin Human Lispro (*Bkc) 1,000 Units/10 Ml Vial SUB-Q Not Given TIDWM JOSE Protocol Moxifloxacin HCl 1 drop 05/21/24 21:00 05/31/24 09:21 Moxifloxacin Hcl 0.5% 3 Ml Ophth Soln LEFT EYE 1 drop Q12HR JOSE Administration Nonformulary Drug ( 1 drop 05/21/24 17:00 05/31/24 09:21 Ketorolac LEFT EYE 06/20/24 16:59 1 drop Tromethamine 0.5 % TID JOSE Administration Ophthalmic Soln) Pantoprazole Sodium 40 mg 05/21/24 21:00 05/31/24 09:20 Pantoprazole 40 Mg Tablet PO 40 mg Q12HR JOSE Administration Polyethylene Glycol 17 gm 05/23/24 17:43 05/25/24 17:56 Polyethylene Glycol 3350 17 Gm Powd.Pack PO 17 gm QAM PRN Administration Constipation Propranolol HCl 20 mg 05/21/24 21:00 05/31/24 09:19 Propranolol Hcl 20 Mg Tablet PO 20 mg Q12HR JOSE Administration Rivaroxaban 10 mg 05/22/24 09:00 05/30/24 09:22 Rivaroxaban 10 Mg Tablet PO 06/21/24 21:00 10 mg DAILY JOSE Administration Ropinirole HCl 0.25 mg 05/27/24 21:00 05/30/24 21:09 Ropinirole Hcl 0.25 Mg Tablet PO 0.25 mg HS JOSE Administration Senna/Docusate Sodium 2 tab 05/23/24 17:43 05/30/24 09:21 Senna/Docusate Sodium Tablet PO 2 tab BID PRN Administration Constipation Tramadol HCl 25 mg 05/31/24 10:06 05/31/24 10:33 Tramadol Hcl (*Crx) 25 Mg Tablet PO 25 mg Q4H PRN Administration Pain Rated 4-6 Radiology Results: ITS Impressions Head CT 05/31/24 09:05 IMPRESSION: 1. Interval development of significant chronic pansinusitis with likely mucoceles of the right maxillary and frontal sinuses. There is erosion, potentially full-thickness of the bone along the posterior wall of the right frontal sinus/inner table of the skull at the anterior cranial fossa but without evident underlying intracranial abscess. Consider ENT consultation and could consider contrast-enhanced CT or MRI for more sensitive evaluation. 2. Age-related changes in the brain including mild diffuse volume loss and mild scattered white matter hypoattenuation consistent with chronic small vessel ischemic disease. Chest X-Ray 05/31/24 11:25 IMPRESSION: 1. No acute cardiopulmonary disease. Labs Labs: Laboratory Results - last 24 hr 05/30/24 05/30/24 05/31/24 16:22 20:48 00:17 WBC 7.7 RBC 2.50 L Hgb 7.7 L Hct 23.7 L MCV 94.8 MCH 30.8 MCHC 32.5 RDW 21.7 H Plt Count 185 MPV 10.2 Immature Gran % (Auto) 0.5 H Neut % (Auto) 78.5 H Lymph % (Auto) 12.5 L [place] % (Auto) 6.4 Eos % (Auto) 1.7 Baso % (Auto) 0.4 Lymph # (Auto) 0.96 L [place] # (Auto) 0.49 Eos # (Auto) 0.13 Baso # (Auto) 0.03 Abs Immat Gran (auto) 0.04 H Absolute Neuts (auto) 6.02 Absolute Nucleated RBC 0.00 Nucleated RBC % 0.0 POC Capillary Glucose 168 H 241 H 05/31/24 05/31/24 05/31/24 05:32 07:14 11:49 WBC 9.2 RBC 2.46 L Hgb 7.6 L Hct 23.2 L MCV 94.3 MCH 30.9 MCHC 32.8 RDW 21.4 H Plt Count 195 MPV 10.2 Immature Gran % (Auto) Neut % (Auto) Lymph % (Auto) [place] % (Auto) Eos % (Auto) Baso % (Auto) Lymph # (Auto) [place] # (Auto) Eos # (Auto) Baso # (Auto) Abs Immat Gran (auto) Absolute Neuts (auto) Absolute Nucleated RBC Nucleated RBC % POC Capillary Glucose 181 H 179 H Quality VTE Prophylaxis VTE prophylaxis: pharmacologic ordered
--- NOTE | 2024-05-31 12:58 | PC.NURSE ---
Verbal order per Tila [employer] read back and confirmed for Straight Cath once for UA and culture.
[2024-05-31] MEDS: LIDOCAINE 5% PATCH 2 PATCH TRANSDERM (13:32)
[2024-05-31 13:34] LABS: Add Urine Microscopic? NO; Appearance Urine Clear (Clear); Bilirubin Urine Negative (Negative); Blood Urine Negative (Negative); Color Urine Light Yellow (Yellow); Glucose Urine UA Negative (Negative); Ketones Urine Negative (Negative); Leukocyte Esterase Ur Negative LEU/UL (Negative); Nitrate Urine Negative (Negative); Protein Urine Negative (Negative); Specific Grav Ur <= 1.005 (1.010-1.020)
[2024-05-31] MEDS: HYDROcodone/acetaminophen (*CRX) 7.5-325 MG TABLET 1 TAB PO ×2 (15:48→20:11)
[2024-05-31 16:00] VITALS: BP 128/48; PULSE 84; RESP 20; TEMP 36.6; O2SAT 98
[2024-05-31 16:49] LABS: Glucose Point of Care 171 mg/dl (65-105)
[2024-05-31] MEDS: ACETAMINOPHEN 500 MG TABLET 1000 MG PO (16:50)
--- NOTE | 2024-05-31 19:33 | PC.NURSE ---
1700 is not comfortable multi position changes up in recliner and up to bsc. warm blankets applied to hip. also ice packs at times. not comfortable. dozes in out out but just a few minutes at a time. son at bedside. did eat cottage cheese and fruit. had one void with a bloody discharge from rectum. second void has no bloody discharge.
[2024-05-31 20:12] VITALS: PULSE 81
[2024-05-31] MEDS: rOPINIRole HCL 0.25 MG TABLET PO (20:12)
[2024-05-31 20:47] LABS: Glucose Point of Care 206 mg/dl (65-105)
[2024-06-01] VITALS (11 sets, daily range): BP systolic 104–133; BP diastolic 41–84; PULSE 73–85; RESP 16–20; TEMP 36.1–37; O2SAT 91–99
[2024-06-01] MEDS: HYDROcodone/acetaminophen (*CRX) 7.5-325 MG TABLET 1 TAB PO (01:33)
--- NOTE | 2024-06-01 03:25 | PC.NURSE ---
Pavel RN went into patients room due to patient yelling out and not using the call light. Went into assist the other RN into getting patient into reclining chair after she asked to get into chair. As patient was sitting on the side of the bed instructions were being given so that she could safely use the pascale stedy to get into the reclining chair. Patient became very rude and was not listening to directions. When she finally listened and we were able to get her to the reclining chair. Pillows were placed under her back, under her feet, and with the foot of the chair up. Patient then kept asking or trying to tell us things that were already done. She continued to be rude to staff. She then stated that she wanted to move back to the bed. Myself and the other nurse again gave instructions to safely use the pascale stedy. This time patient understood instructions and this nurse was able to help patient get back to bed. Confusion remains from previous day. Vital signs stable.
[2024-06-01 07:52] LABS: Glucose Point of Care 167 mg/dl (65-105)
[2024-06-01 08:38] LABS: Basophils Absolute Auto 0.02 K/mm3 (0.00-0.10); Basophils Percent Auto 0.3 % (0.0-1.0); Eosinophils Absolute Auto 0.19 K/mm3 (0.02-0.50); Eosinophils Percent Auto 2.9 % (1.0-6.0); Immature Granulocyte Absolute 0.02 K/mm3 (0.00-0.00); Immature Granulocyte Percent A 0.3 % (0.0-0.0); Immature Platelet Fraction Pct 3.8 % (1.0-7.0); Lymphocytes Absolute Auto 1.12 K/mm3 (1.10-4.50); Mean Corpuscular HGB Conc 32.8 g/dL (32-36); Mean Corpuscular Hemoglobin 31.7 pg (27.0-31.0); Mean Corpuscular Volume 96.7 fL (78.0-102.0); Mean Platelet Volume 11.1 fl (9.2-11.8); Monocytes Absolute Auto 0.49 K/mm3 (0.10-0.90); Monocytes Percent Auto 7.4 % (2.0-11.0); Neutrophils Absolute Auto 4.75 K/mm3 (1.70-7.20); Neutrophils Percent Auto 72.1 % (50.0-70.0); Nucleated Red Blood Cells Absolute Auto 0.02 K/mm3 (0.00-0.00); Nucleated Red Blood Cells Perc 0.3 % (0-0.0); Platelet Count Result 77 K/mm3 (150-420); Red Cell Distribution Width 22.8 % (11.6-14.4); White Blood Count 6.6 K/mm3 (4.8-10.8)
[2024-06-01 08:43] LABS: Hematocrit 17.4 % (35.0-42.0); Hemoglobin 5.7 g/dL (11.7-13.8)
[2024-06-01 08:48] LABS: Alanine Aminotransferase 16 U/L (14-59); Albumin Level 2.1 g/dL (3.4-5.0); Alkaline Phosphatase 119 U/L (46-116); Anion Gap 9 mmol/L (4-12); Aspartate Amino Transferase 31 U/L (15-37); Bilirubin,Total 1.8 mg/dL (0.00-1.00); Blood Urea Nitrogen 29 mg/dL (7-18); Calcium 8.3 mg/dL (8.5-10.1); Carbon Dioxide 26 mmol/L (21-32); Chloride 102 mmol/L (98-108); Estimated CRCL calculation 39 ml/min; Estimated Glomerular Filt Rate 49; Glucose 162 mg/dL (70-99); Osmolality Calculated 293 mOsm/kg (285-295); Potassium 4.2 mmol/L (3.5-5.1); Sodium 137 mmol/L (136-145); Total Protein 4.9 g/dL (6.4-8.2)
[2024-06-01] MEDS: PANTOPRAZOLE 40 MG TABLET PO (09:12)
[2024-06-01] MEDS: ACETAMINOPHEN 500 MG TABLET 1000 MG PO (09:12)
[2024-06-01] MEDS: PROPRANOLOL HCL 20 MG TABLET PO (09:12)
[2024-06-01] MEDS: MOXIFLOXACIN HCL 0.5% 3 ML OPHTH SOLN 1 DROP LEFT EYE (09:13)
[2024-06-01] MEDS: KETOROLAC TROMETHAMINE 0.5% LEFT EYE ×2 (09:13→12:32)
[2024-06-01] MEDS: [UNRECOGNIZED DRUG - OTHER] LEFT EYE ×2 (09:13→12:32)
[2024-06-01] MEDS: CALCIUM/VITAMIN D 250 MG/3.125 MCG (125 I.U.) TABLET 1 TABLET PO (09:13)
[2024-06-01] MEDS: FERROUS SULFATE 325 MG TABLET DR PO (09:13)
--- NOTE | 2024-06-01 09:28 | P.TS_ITS ---
Transfer Discharge Sum: Prov Provider Date of admission: 05/21/24 13:31 Primary care physician: Rena Asher MD Admitting clinician: Misha Love MD Consults: 05/29/24 Consult to Home Health Routine Reason for Consult:: Occupational Therapy Physical Therapy RN/Care Home Attending physician on discharge: Sivakumar Love Discharging clinician: Tila Major Anticipated date of transfer: 06/01/24 Receiving physician/facility: Dr. Lou DS: Admitting Diagnosis Discharge Date 06/01/24 Admitting Diagnosis Closed fracture of neck of right femur status post bipolar right hip replacement anemia diabetes fall from ground level diastolic dysfunction DS: Discharge Diagnosis Discharge Diagnosis (1) Closed fracture of neck of right femur: Qualifiers: Encounter type: initial encounter Qualified Code(s): S72.001A - Fracture of unspecified part of neck of right femur, initial encounter for closed fracture Code(s): S72.001A - Fracture of unspecified part of neck of right femur, initial encounter for closed fracture Status: Acute (2) Altered mental status: Code(s): R41.82 - Altered mental status, unspecified Status: Acute (3) GI bleeding: Code(s): K92.2 - Gastrointestinal hemorrhage, unspecified Status: Acute (4) Anemia: Code(s): D64.9 - Anemia, unspecified Status: Acute (5) Fall from ground level: Code(s): W18.30XA - Fall on same level, unspecified, initial encounter Status: Acute (6) Diabetes: Code(s): E11.9 - Type 2 diabetes mellitus without complications Status: Acute (7) Diastolic dysfunction: Code(s): I51.89 - Other ill-defined heart diseases Status: Acute (8) Hypomagnesemia: Code(s): E83.42 - Hypomagnesemia Status: Acute Transfer Discharge Sum: Med Medications Active and Home Medications: Home Medications allopurinol 100 mg tablet 100 mg PO .COMPLEX 11/06/19 [History Confirmed 05/21/24] hydrocodone 10 mg-acetaminophen 325 mg tablet 1 tablet PO QID PRN Pain 11/06/19 [History Confirmed 05/21/24] propranolol 20 mg tablet 20 mg PO BID 11/06/19 [History Confirmed 05/21/24] glimepiride 4 mg tablet 4 mg PO DAILY 04/24/22 [History Confirmed 05/21/24] aspirin 81 mg tablet 81 mg PO DAILY 06/30/22 [History Confirmed 05/21/24] ketorolac 0.5 % eye drops 1 drp LEFT EYE TID 05/16/24 [History Confirmed 05/21/24] moxifloxacin 0.5 % eye drops 1 drp LEFT EYE BID 05/16/24 [History Confirmed 05/21/24] pantoprazole 40 mg tablet,delayed release 40 mg PO Q12H 05/16/24 [History Confirmed 05/21/24] rivaroxaban 10 mg tablet (Xarelto) 10 mg PO DAILY #14 tabs 05/20/24 [Rx Confirmed 05/21/24] calcium 500 mg (as carbonate)-vitamin D3 5 mcg (200 unit) tablet (Oyster Shell Calcium-Vitamin D3) 1 tablet PO BIDWM #30 tabs 05/21/24 [Rx Confirmed 05/21/24] celecoxib 200 mg capsule (Celebrex) 200 mg PO DAILY #30 caps 05/21/24 [Rx Confirmed 05/21/24] cyclobenzaprine 10 mg tablet 10 mg PO Q8H PRN Muscle Spasm #180 tabs 05/21/24 [Rx Confirmed 05/21/24] ferrous sulfate 325 mg (65 mg iron) tablet,delayed release 325 mg PO BID #60 tabs 05/21/24 [Rx Confirmed 05/21/24] sennosides 8.6 mg-docusate sodium 50 mg tablet (Senokot-S) 2 tab PO BID #60 tabs 05/21/24 [Rx Confirmed 05/21/24] Active Medications Acetaminophen (Acetaminophen 500 Mg Tablet) 1,000 mg PO BID [facility] Last Admin: 06/01/24 09:12 Dose: 1,000 mg Hydrocodone Bitart/Acetaminophen (Hydrocodone/Acetaminophen (*Crx) 7.5-325 Mg Tablet) 1 tab PO Q4H PRN PRN Reason: Pain Rated 7-10 Last Admin: 06/01/24 01:33 Dose: 1 tab Allopurinol (Allopurinol 100 Mg Tablet) 100 mg PO [id number] [facility] Last Admin: 05/31/24 09:27 Dose: 100 mg Aspirin (Aspirin 81 Mg Enteric Tablet) 81 mg PO QAM [facility] Last Admin: 05/31/24 10:12 Dose: Not Given Calcium Carbonate (Calcium/Vitamin D 250 Mg/3.125 Mcg (125 I.U.) Tablet) 1 tablet PO BIDWM [facility] Last Admin: 06/01/24 09:13 Dose: 1 tablet Celecoxib (Celecoxib 100 Mg Capsule) 200 mg PO DAILY [facility] Last Admin: 05/31/24 10:12 Dose: Not Given Cyclobenzaprine HCl (Cyclobenzaprine Hcl 10 Mg Tablet) 10 mg PO Q8H PRN PRN Reason: Muscle Spasm Last Admin: 05/30/24 09:22 Dose: 10 mg Dextrose (Dextrose 50% 25 Gm/50 Ml Syringe) 12.5 gm IV PUSH PRN PRN; Protocol PRN Reason: Hypoglycemia Ferrous Sulfate (Ferrous Sulfate [address]) 325 mg PO BID [facility] Last Admin: 06/01/24 09:13 Dose: 325 mg Gabapentin (Gabapentin 100 Mg Capsule) 100 mg PO DAILY [facility] Last Admin: 05/31/24 09:20 Dose: 100 mg Glucagon (Glucagon For Inj 1 Mg Vial) 1 mg IM PRN PRN; Protocol PRN Reason: Hypoglycemia Glucose (Glucose Oral Gel 15 Gm Of Glucse In 37.5 Gm Tube) 15 gm PO PRN PRN; Protocol PRN Reason: Hypoglycemia Dextrose (Dextrose 5% 1,000 Ml) 1,000 mls @ 100 mls/hr IVPB PRN PRN; Protocol PRN Reason: Hypoglycemia Sodium Chloride (Normal Saline Iv) 250 mls @ 30 mls/hr IV CONT .Q8H20M RUST Stop: 06/01/24 17:06 Insulin Human Lispro (Insulin Human Lispro (*Bkc) 1,000 Units/10 Ml Vial) 2 - 5 units SUB-Q TIDWM [facility]; Protocol Last Admin: 06/01/24 09:20 Dose: Not Given Lidocaine (Lidocaine 5% Patch) 2 patch TRANSDERM DAILY [facility] Last Admin: 05/31/24 13:32 Dose: 2 patch Moxifloxacin HCl (Moxifloxacin Hcl 0.5% 3 Ml Ophth Soln) 1 drop LEFT EYE Q12HR [facility] Last Admin: 06/01/24 09:13 Dose: 1 drop Nonformulary Drug ( Ketorolac Tromethamine 0.5 % Ophthalmic Soln) 1 drop LEFT EYE TID [facility] Stop: 06/20/24 16:59 Last Admin: 06/01/24 09:13 Dose: 1 drop Pantoprazole Sodium (Pantoprazole 40 Mg Tablet) 40 mg PO Q12HR [facility] Last Admin: 06/01/24 09:12 Dose: 40 mg Polyethylene Glycol (Polyethylene Glycol 3350 17 Gm Powd.Pack) 17 gm PO QAM PRN PRN Reason: Constipation Last Admin: 05/25/24 17:56 Dose: 17 gm Propranolol HCl (Propranolol Hcl 20 Mg Tablet) 20 mg PO Q12HR JOSE Last Admin: 06/01/24 09:12 Dose: 20 mg Rivaroxaban (Rivaroxaban 10 Mg Tablet) 10 mg PO DAILY [facility] Stop: 06/21/24 21:00 Last Admin: 05/30/24 09:22 Dose: 10 mg Ropinirole HCl (Ropinirole Hcl 0.25 Mg Tablet) 0.25 mg PO HS [facility] Last Admin: 05/31/24 20:12 Dose: 0.25 mg Senna/Docusate Sodium (Senna/Docusate Sodium Tablet) 2 tab PO BID PRN PRN Reason: Constipation Last Admin: 05/30/24 09:21 Dose: 2 tab Tramadol HCl (Tramadol Hcl (*Crx) 25 Mg Tablet) 25 mg PO Q4H PRN PRN Reason: Pain Rated 4-6 Last Admin: 05/31/24 10:33 Dose: 25 mg Transfer Discharge Sum: Hosp Hospital Course Hospital course: Khadra Crook is a 84 year old female with a significant past medical history of anemia, arthritis, dyslipidemia, gout, hypertension, type 2 diabetes mellitus, liver cancer, former smoker who presented to [facility] for swing bed rehab program on 05/22/2024 from [facility] after having a right bipolar hip replacement done on 05/16/2024. patient originally presented to the hospital on 05/16/2024 after sustaining a mechanical fall at home. Patient apparently was coming in from letting her dog out to go the bathroom when she tripped over the door frame causing her to fall on her right side. She immediately had pain and EMS was called. She was brought to [facility] initially with Ortho consult for a right femoral neck fracture seen on x-ray. She went to the operating room that day and had a right bipolar hip replacement done with Dr. Balbuena. patient was seen by therapy who is recommending SNF placement. The only complication after surgery is that her hemoglobin dropped on 05/18 down to 6.8 requiring a unit of blood to be given. They repeated an H&H on 05/18/2024 requiring another unit of blood to be given. Her H&H was considered stable after those 2 units. She was then transferred to [facility] for the swing bed rehab program on 05/22/2024 in stable condition. Patient started working with therapy here at [facility] and had no complications up until 05/30/2024 when the patient started to become more confused with increased pain and started passing bright red blood per rectum. She was place on Xarelto for DVT prophylaxis immediately postop and was going to continue this per protocol after having a total hip replacement However this was held on the night of of 05/30/2024. hemoglobin went from 8.5 down to 7.7 that evening and then in the morning was still stable at 7.6. Patient was not symptomatic. Her vital signs were stable including her blood pressure. This morning we went ahead and checked her labs again which shown a further drop in hemoglobin of 5.7 requiring blood transfusion. With these concerns we decided that it was in our best interest to send her to [place] for GI consult. She was given 2 units of blood at [place] with the 2nd unit infusing en route to [place]. her hemoglobin in between blood transfusions was 6.7. I spoke with Dr. Negro, (GI) who accepts consult. I then spoke with Dr. Lou, (hospitalist) who accepts patient transfer to the hospital. Lastly, I called Dr. Balbuena (orthopedic surgeon) out of courtesy to update and let him know we held Xarelto and aspirin due to GI bleeding. Dr. Balbuena said that he will see her on Monday. Patient was transferred in stable condition via EMS final diagnosis: acute blood loss anemia, GI bleed, status post right bipolar hip replacement condition: stable Time Spent with Patient Time attestation: Total time spent providing and/or coordinating transfer services: Total time spent: Greater than 30 minutes Exam Narrative: General: In no acute distress, well nourished Head: acute encephalopathy resolved Eyes: PERRLA, sclera clear Cardiac: Normal S1 and S2. RRR, No murmur, gallops or friction rubs, peripheral pulses intact. Respiratory: Lungs clear to auscultation, no adventitious lung sounds, currently on room air Gastrointestinal: soft, non-distended, non-tender, normoactive bowel sounds. : voiding without difficulty. Extremities: moves all extremities well, no edema Skin: jennie right hip, ecchymosis around incision and anterior thigh Neuro: Alert and oriented x3 DS: Data Data Completed and Pending Completed studies during hospitalization: head CT chest x-ray abdomen pelvis CT Pending studies at discharge: none Labs on day of discharge: Labs from last 24 hours 06/01/24 06/01/24 05/31/24 08:27 07:46 20:32 WBC 6.6 RBC 1.80 L Hgb 5.7 L* Hct 17.4 L* MCV 96.7 MCH 31.7 H MCHC 32.8 RDW 22.8 H Plt Count 77 L MPV 11.1 Immature Gran % (Auto) 0.3 H Neut % (Auto) 72.1 H Lymph % (Auto) 17.0 L [place] % (Auto) 7.4 Eos % (Auto) 2.9 Baso % (Auto) 0.3 Lymph # (Auto) 1.12 [place] # (Auto) 0.49 Eos # (Auto) 0.19 Baso # (Auto) 0.02 Abs Immat Gran (auto) 0.02 H Absolute Neuts (auto) 4.75 Absolute Nucleated RBC 0.02 H Nucleated RBC % 0.3 H % Immature Plt Fraction 3.8 Sodium 137 Potassium 4.2 Chloride 102 Carbon Dioxide 26 Anion Gap 9 BUN 29 H Creatinine 1.07 H Estim Creat Clear Calc 39 Estimated GFR 49 L Glucose 162 H POC Capillary Glucose 167 H 206 H Calculated Osmolality 293 Calcium 8.3 L Total Bilirubin 1.8 H AST 31 ALT 16 Alkaline Phosphatase 119 H Total Protein 4.9 L Albumin 2.1 L Urine Color Urine Appearance Urine pH Ur Specific [place] Urine Protein Urine Glucose (UA) Urine Ketones Ur Blood (Man) Urine Nitrate Urine Bilirubin Urine Urobilinogen Leukocyte Esterase Rfl 05/31/24 05/31/24 05/31/24 16:47 12:23 11:49 WBC RBC Hgb Hct MCV MCH MCHC RDW Plt Count MPV Immature Gran % (Auto) Neut % (Auto) Lymph % (Auto) [place] % (Auto) Eos % (Auto) Baso % (Auto) Lymph # (Auto) [place] # (Auto) Eos # (Auto) Baso # (Auto) Abs Immat Gran (auto) Absolute Neuts (auto) Absolute Nucleated RBC Nucleated RBC % % Immature Plt Fraction Sodium Potassium Chloride Carbon Dioxide Anion Gap BUN Creatinine Estim Creat Clear Calc Estimated GFR Glucose POC Capillary Glucose 171 H 179 H Calculated Osmolality Calcium Total Bilirubin AST ALT Alkaline Phosphatase Total Protein Albumin Urine Color Light yellow Urine Appearance Clear Urine pH 6.0 Ur Specific [place] <= 1.005 L Urine Protein Negative Urine Glucose (UA) Negative Urine Ketones Negative Ur Blood (Man) Negative Urine Nitrate Negative Urine Bilirubin Negative Urine Urobilinogen 1.0 Leukocyte Esterase Rfl Negative Procedures/Treatments: none Imaging Radiologist's impression: EXAMINATION: CT abdomen pelvis w con DATE: 05/31/2024 11:45 INDICATION: Bleeding, possible abscess TECHNIQUE: Computed tomography (CT) of the abdomen and pelvis was performed with 100 CC Omnipaque 350 intravenous contrast. Automated exposure control and iterative reconstruction technique were employed. Exam dose: 1305.03 mGy-cm total exam DLP. COMPARISON: 06/19/2023 CT abdomen pelvis FINDINGS: There is mild multifocal discoid atelectasis or scarring at the right lower lobe primarily. No infiltrate or consolidation at the lung bases. Heart size is within normal range. No pericardial or pleural effusion. There is a small nodular liver consistent with cirrhosis, with associated splenomegaly and moderate ascites. No focal hepatic space-occupying mass lesion is evident. Status post cholecystectomy. No bile duct or pancreatic duct dilatation. No pancreatic mass lesion or calcification. No adrenal mass lesion. No renal mass lesion or urinary tract calculus or hydroureteronephrosis is detected. The urinary bladder is largely obscured by extensive streak artifact from right hip prosthesis. There is osteoarthritic change at the left hip. Small sliding hiatal hernia. Multiple surgical clips are noted in the stomach area. Diverticulosis of the sigmoid colon; no CT evidence of diverticulitis is noted. No bowel obstruction or intraperitoneal free air. There is abdominal aortic calcification but no aneurysm. No intraperitoneal or retroperitoneal or pelvic mass lesion or adenopathy is noted. There is edema of both lower extremities, right greater than left. Degenerative changes of the included lower thoracic and lumbar spine including multilevel lumbar degenerative disc disease, most severe at L5-S1. No suspicious osteolytic or osteoblastic lesions are noted. IMPRESSION: Cirrhosis, splenomegaly, moderate ascites Status post cholecystectomy Postoperative change of the stomach Status post right total hip arthroplasty Diverticulosis of the sigmoid colon; no evidence of diverticulitis Reviewed, dictated and finalized at [facility]. Reviewed, dictated and finalized at [facility]. ION BLOCK CLERK EXAMINATION: XR chest 1V portable DATE: 05/31/2024 10:28 INDICATION: Shortness of breath TECHNIQUE: frontal view of the chest was obtained. COMPARISON: Chest radiograph dated 05/15/2024 FINDINGS: Calcified nodule at the right midlung zone consistent with old granulomatous disease. No other airspace opacities, pulmonary edema, pleural effusion or pneumothorax. Heart size is normal. Mitral annular calcification. Postoperative changes in the upper abdomen with multiple surgical clips in the epigastric region and cholecystectomy clips in right upper quadrant. IMPRESSION: 1. No acute cardiopulmonary disease. Reviewed, dictated and finalized at [facility]. ION BLOCK CLERK EXAMINATION: CT brain wo con DATE: 05/31/2024 09:02 INDICATION: Altered mental status and confusion. TECHNIQUE: Computed tomography (CT) of the head was performed without intravenous contrast. Sagittal and coronal reconstructions were performed. The mA was adjusted according to patient size. Iterative reconstruction technique was employed. The dose-length product was 605.33 mGy-cm. COMPARISON: head CT dated 06/27/2017 FINDINGS: No acute intracranial hemorrhage, acute infarction or abnormal extra axial fluid collection. There is mild scattered white matter hypoattenuation consistent with chronic small vessel ischemic disease. Symmetric prominence of the sulci consistent with mild age-appropriate diffuse cerebral volume loss. Ventricles are normal and symmetric. No mass/mass effect. Changes of bilateral intraocular lens replacement. The orbits and mastoid air cells are normal. There is extensive complete near complete opacification of the right frontal, bilateral maxillary and bilateral ethmoid sinuses as well as the anterior right and posterior left ethmoid air cells. The ambrosio of the sinuses appear relatively thickened and sclerotic when compared with the prior imaging, there is subtle central calcification within the opacified right maxillary sinus consistent with chronic sinusitis. There appears be interval slight outward bulging of the posterior wall of the right maxillary sinus and expansion of the right frontal sinus and frontoethmoidal recess with erosion of the inner wall of the right frontal sinus which is essentially indiscernible consistent with mucoceles. Is unclear whether there is any remaining intact bone along portions of the posterior wall of the right frontal sinus, there is no evident abscess in the immediately adjacent anterior cranial fossa although evaluation is more limited on noncontrast imaging. IMPRESSION: 1. 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 There is erosion, potentially full-thickness of the bone along the posterior wall of the right frontal sinus/inner table of the skull at the anterior cranial fossa but without evident underlying intracranial abscess. Consider ENT consultation and could consider contrast-enhanced CT or MRI for more sensitive evaluation. 2. Age-related changes in the brain including mild diffuse volume loss and mild scattered white matter hypoattenuation consistent with chronic small vessel ischemic disease. Reviewed, dictated and finalized at [facility]. ION BLOCK CLERK
--- NOTE | 2024-06-01 09:35 | PC.NURSE ---
Nicole Navarro, pt's daughter, called with update on plan of care and transfer.
--- NOTE | 2024-06-01 10:39 | PC.NURSE ---
Rate of blood transfusion increased to 150 ml/hr, patient tolerating well.
[2024-06-01] MEDS: LIDOCAINE 5% PATCH 2 PATCH TRANSDERM (11:42)
[2024-06-01] MEDS: SODIUM CHLORIDE 0.9% IV 250 ML 30 ML IV CONT (11:42)
[2024-06-01 11:45] LABS: Glucose Point of Care 209 mg/dl (65-105)
[2024-06-01 13:13] LABS: Hematocrit 21.8 % (35.0-42.0)
[2024-06-01 13:17] LABS: Hemoglobin 6.7 g/dL (11.7-13.8)
--- NOTE | 2024-06-01 14:52 | PC.NURSE ---
Report given to [facility].
--- NOTE | 2024-06-01 15:22 | PC.NURSE ---
Patient transferred to [facility] per ambulance, daughter present.
[2024-06-01 16:47] LABS: Glucose Point of Care 173 mg/dl (65-105)
== END 2024-06-01 15:10 | disposition short-term general hospital (02) | DRG 560 ==
PROVIDERS: Nurse Practitioner Acute Care; Nurse Practitioner Family; Admitting Provider Internal Medicine; PCP Internal Medicine; Visit Provider Nurse Practitioner Acute Care
DX: S72.001D Fracture of unspecified part of neck of right femur, subsequent encounter for closed fracture with routine healing (principal); C22.8 Malignant neoplasm of liver, primary, unspecified as to type; K92.2 Gastrointestinal hemorrhage, unspecified; D62 Acute posthemorrhagic anemia; I10 Essential (primary) hypertension; I51.89 Other ill-defined heart diseases; E78.5 Hyperlipidemia, unspecified; E11.9 Type 2 diabetes mellitus without complications; E83.42 Hypomagnesemia; J32.9 Chronic sinusitis, unspecified; M19.90 Unspecified osteoarthritis, unspecified site; M35.3 Polymyalgia rheumatica; M48.00 Spinal stenosis, site unspecified; R41.82 Altered mental status, unspecified; Z79.82 Long term (current) use of aspirin; Z87.891 Personal history of nicotine dependence; Z79.01 Long term (current) use of anticoagulants
CPT/HCPCS: 36415; 36430; 70450; 71045; 74177; 80053; 81003; 82948; 83036; 83735; 85014; 85018; 85025; 85027; 85055; 85610; 85730; 86850; 86900; 86901; 86920; 97110; 97112; 97161; 97165; 97530; 97535; A9270; J1815; J7050; P9016; Q9967

== ENCOUNTER 2024-06-02 08:52 | Inpatient (IN) | payer MEDICARE, SELFPAY ==
[2024-06-01 16:15] VITALS: BP 132/78; PULSE 76; RESP 18; TEMP 36.7; O2SAT 100
--- NOTE | 2024-06-01 16:25 | PC.NURSE ---
Received this patient as a direct admit from [facility] with blood transfusing. Blood and normal saline switched over to our tubing/blood tubing and infusion pump. patient vitals T- 98.1, O2- 100 RA, P-76, R-18, 132/78. Report received from Vilma at [place]. It was communicated to me by EMS that patient was not sent over with any paperwork/packet from [place]. Notified Mayra Flores patient has arrived at 1629.
[2024-06-01 16:32] VITALS: BMI 29.5
[2024-06-01 17:00] VITALS: BP 132/50; PULSE 72; RESP 17; TEMP 36.8; O2SAT 99
--- NOTE | 2024-06-01 17:00 | PC.NURSE ---
patient blood transfusion complete, vitals signs T-98.2, R-17, O2- 99%, P- 72, 132/50
--- NOTE | 2024-06-01 18:10 | P.HP_ITS ---
H&P: HPI History of Present Illness Date/Time: 06/01/24 19:00 Chief Complaint: Anemia. Narrative: This is an 84-year-old female with history of hypertension, hyperlipidemia, diastolic dysfunction, type 2 diabetes mellitus, cirrhosis, and liver cancer who is being directly admitted to the medical floor from the [facility] rehab for evaluation of anemia and bloody stools. The patient and her daughter provides the following history. She is currently going through rehab at their facility following repair of right femoral neck fracture on 05/16/2024. Postoperatively she did have a drop in hemoglobin which was felt to be related to surgery for which she was transfused. Hemoglobin has been stable for over a week however today it dropped down to 5.7. It is my understanding that she passed a dark stool on evening and yesterday and the rivaroxaban she was prescribed for DVT prophylaxis postoperatively was held. She was transfused 2 units of packed red blood cells at the outside facility and transfer was initiated to [place] for GI consultation. At the time my evaluation she endorses feeling tired and weak the last several days but is feeling better after the transfusion. She complains of 20/10 pain in her right hip which has apparently been an ongoing issue however daughter states that she was actually supposed to be discharged home today because the patient was doing so well, ambulating with a walker and transferring without assistance. She denies fever, chills, sweats, cold and flu symptoms, chest pain, cough, shortness of breath, abdominal pain, bloating, belching, indigestion, nausea, vomiting, diarrhea, and dysuria. Review of Systems Review of Systems: 12 systems were reviewed and are negativ e except for as per HPI. [facility] Past Medical History Medical History (Updated 06/01/24 @ 20:31 by Mayra Flores PA-C) Anemia Arthritis Cirrhosis of liver with ascites Dyslipidemia Gout Hypertension Liver cancer Type 2 diabetes mellitus Surgical History Surgical History (Updated 06/01/24 @ 12:44 by Mayra Flores PA-C) History of ablation of neoplasm of liver History of appendectomy History of gastric bypass History of hysterectomy History of laparoscopic cholecystectomy History of partial replacement of right hip joint using bipolar prosthesis (05/16/24) repair of right femoral neck fracture History of tonsillectomy Family History Family History Father Brain tumor Cerebrovascular accident Mother Cerebrovascular accident Mother Cerebrovascular accident Social History Social History (Updated 06/01/24 @ 12:45 by Mayra Flores PA-C) Social History: Surrogate medical decision maker: Nicole Oliva ([phone]), daughter. Code status: Full code. Smoking packs per day: 1 Smoking cigarettes per day: 20.0 Years smoked: 5 Smoking pack-years: 5.00 Smoking status: Former smoker Tobacco type: cigarettes Second hand tobacco smoke exposure: No Alcohol intake: never Substance use: never Substance use type: does not use Do You Feel Safe in your Home?: Yes Lack of Transportation: No Lack of Food: Never True Current Housing: I Have Housing Concerned About Future Housing: No Difficulty Paying Gas/Electric Bills: No Difficulty Paying for Meds: No Currently Unemployed: No Education: Grade School Difficulty w/ Childcare or Family Care: No Living arrangements: alone Additional living arrangements comments: Lives home alone with her dog. She is normally independent without use of assistive devices. Spiritual care concerns: No Meds Home Medications and Allergies Home Medications Medication Instructions Recorded Confirmed Type allopurinol 100 mg tablet 100 mg PO .COMPLEX 11/06/19 06/01/24 History propranolol 20 mg tablet 20 mg PO Q12H 11/06/19 06/01/24 History aspirin 81 mg tablet 81 mg PO DAILY 06/30/22 06/01/24 History ketorolac 0.5 % eye drops 1 drp LEFT EYE TID 05/16/24 06/01/24 History moxifloxacin 0.5 % eye drops 1 drp LEFT EYE Q12H 05/16/24 06/01/24 History pantoprazole 40 mg tablet,delayed 40 mg PO Q12H 05/16/24 06/01/24 History release rivaroxaban 10 mg tablet (Xarelto) 10 mg PO DAILY #14 tabs 05/20/24 06/01/24 Rx celecoxib 200 mg capsule (Celebrex) 200 mg PO DAILY #30 caps 05/21/24 06/01/24 Rx cyclobenzaprine 10 mg tablet 10 mg PO Q8H PRN Muscle Spasm #180 05/21/24 06/01/24 Rx tabs ferrous sulfate 325 mg (65 mg 325 mg PO BID #60 tabs 05/21/24 06/01/24 Rx iron) tablet,delayed release sennosides 8.6 mg-docusate sodium 2 tab PO BID #60 tabs 05/21/24 06/01/24 Rx 50 mg tablet (Senokot-S) acetaminophen 500 mg capsule 1,000 mg PO BID 06/01/24 06/01/24 History calcium carb-ergocalciferol (vit 1 tablet PO BID 06/01/24 06/01/24 History D2) 250 mg (625 mg)-125 unit tablet gabapentin 100 mg capsule 100 mg PO BID 06/01/24 06/01/24 History hydrocodone 7.5 mg-acetaminophen 1 tablet PO Q4H PRN Pain, Severe 06/01/24 06/01/24 History 325 mg tablet insulin lispro 100 unit/mL 1 sliding scale dose subcut 06/01/24 06/01/24 History subcutaneous pen USEASDIRECTD lidocaine 5 % topical patch 2 patch topical DAILY 06/01/24 06/01/24 History polyethylene glycol 3350 17 gram 17 g PO DAILY PRN Constipation 06/01/24 06/01/24 History oral powder packet (Miralax) ropinirole 0.25 mg tablet 0.25 mg PO HS 06/01/24 06/01/24 History tramadol 25 mg tablet 25 mg PO Q4H PRN Pain, Moderate 06/01/24 06/01/24 History Allergies Allergy/AdvReac Type Severity Reaction Status Date / Time No Known Allergies Allergy Verified 05/16/24 13:37 Vital Signs Vital Signs - 24 hr 06/01/24 16:15 06/01/24 17:00 Temperature 98.1 F 98.2 F Pulse Rate 76 72 Respiratory Rate 18 17 Blood Pressure 132/78 132/50 L Pulse Oximetry 100 99 Exam Narrative: General: Moderately ill-appearing female in the semi-Pugh position in bed. Weight: 85.5 kg. BMI: 29.5. HEENT: PERRL, EOMI. Sclera anicteric. Edentulous. Tacky mucous membranes. Neck: Supple. No JVD. Respiratory: Lungs are clear to auscultation bilaterally. Cardiovascular: Regular rate and rhythm with S1-S2. Gastrointestinal: Abdomen is soft, nontender, and nondistended with positive bowel sounds. Dullness to percussion at the flanks. No guarding or rebound tenderness. Skin: Warm and dry. Generalized pallor. Extremities: No cyanosis or clubbing. Bilateral lower extremity pitting edema. Peripheral pulses intact. Musculoskeletal: Right hip dressing is clean, dry, and intact. Healing bruising over the anterior thigh. Compartments are soft. She is neurovascularly intact distal to the surgical site. Neurological: Alert. Cranial nerves 2-12 are grossly intact. No gross focal deficits to casual conversation. Psychiatric: Pleasant and cooperative with normal mood and affect. Judgment and insight intact. H&P: Results Labs Labs: 06/01/24 06/01/24 05/31/24 08:27 07:46 20:32 WBC 6.6 RBC 1.80 L Hgb 5.7 L* Hct 17.4 L* MCV 96.7 MCH 31.7 H MCHC 32.8 RDW 22.8 H Plt Count 77 L MPV 11.1 Immature Gran % (Auto) 0.3 H Neut % (Auto) 72.1 H Lymph % (Auto) 17.0 L Will % (Auto) 7.4 Eos % (Auto) 2.9 Baso % (Auto) 0.3 Lymph # (Auto) 1.12 Will # (Auto) 0.49 Eos # (Auto) 0.19 Baso # (Auto) 0.02 Abs Immat Gran (auto) 0.02 H Absolute Neuts (auto) 4.75 Absolute Nucleated RBC 0.02 H Nucleated RBC % 0.3 H % Immature Plt Fraction 3.8 Sodium 137 Potassium 4.2 Chloride 102 Carbon Dioxide 26 Anion Gap 9 BUN 29 H Creatinine 1.07 H Estim Creat Clear Calc 39 Estimated GFR 49 L Glucose 162 H POC Capillary Glucose 167 H 206 H Calculated Osmolality 293 Calcium 8.3 L Total Bilirubin 1.8 H AST 31 ALT 16 Alkaline Phosphatase 119 H Total Protein 4.9 L Albumin 2.1 L Assessment and Plan Assessment and plan (1) Symptomatic anemia: Code(s): D64.9 - Anemia, unspecified Status: Acute (2) Melena: Code(s): K92.1 - Melena Status: Acute (3) Cirrhosis of liver with ascites: Code(s): K74.60 - Unspecified cirrhosis of liver; R18.8 - Other ascites Status: Acute (4) Diastolic dysfunction: Code(s): I51.89 - Other ill-defined heart diseases Status: Acute (5) Lower extremity edema: Code(s): R60.0 - Localized edema Status: Acute Plan The patient was transferred to [place] today for GI consultation of rectal bleeding and anemia as detailed in HPI. Labs, imaging, EKG, and all reports were personally reviewed. She was will be transfused to a stable hemoglobin and H&H will be monitored closely. Start pantoprazole due to suspicions for upper GI bleed given reported melena. She may have clear liquids tonight and will be NPO after midnight for probable endoscopy tomorrow. Platelet count dropped following surgery but rebounded however is now low again. May be related to consumption however she does have cirrhosis and her total protein and albumin are quite low as well. Urine protein was negative. Check coags and pre-albumin. Lower extremity venous Doppler ultrasounds ordered to rule out DVT. Glucose has been stable. Initiate sliding scale insulin, Accu-Cheks, and hypoglycemic protocol. Her home medications will be reviewed and resumed as appropriate. Findings and treatment plan were discussed with the patient and her daughter. Questions were solicited and answered to satisfaction. The patient's medical management will be taken over by the hospitalist team in a.m. Quality VTE Prophylaxis VTE prophylaxis: mechanical ordered If No VTE Prophylaxis Answer both mechanical and pharmacologic: Reason no pharmacologic proph: medical contraindication (anemia, melena) The patient has been admitted under observation status. Hospitalist [facility] Advance Care Plan I have confirmed that the patient's Advanced Care Plan is present, code status is documented, or surrogate decision maker is listed in patient medical record.: Yes Medication Reconciliation I have utilized all available resources to obtain, update and review the patients current medications (includes all prescriptions, OTC, herbals, cannabis, and nutritional supplements).: Yes
[2024-06-01 18:14] VITALS: O2SAT 100
[2024-06-01 18:34] LABS: Hematocrit 25.9 % (37.0-47.0); Hemoglobin 8.6 g/dL (12.0-15.0)
[2024-06-01] MEDS: HYDROcodone/acetaminophen (*CRX) 5-325 MG TABLET 1 TAB PO (19:04)
[2024-06-01] MEDS: MORPHINE SULFATE (*CRX) 2 MG/ML INJ IV PUSH (20:36)
[2024-06-01 20:54] VITALS: BP 115/45; PULSE 73; RESP 16; TEMP 36.8; O2SAT 100
[2024-06-01] MEDS: GABAPENTIN 100 MG CAPSULE PO (21:06)
[2024-06-01 21:07] VITALS: PULSE 75
[2024-06-01] MEDS: PROPRANOLOL HCL 20 MG TABLET PO (21:07)
[2024-06-01] MEDS: MOXIFLOXACIN HCL 0.5% 3 ML OPHTH SOLN 1 DROP LEFT EYE (21:39)
[2024-06-01] MEDS: PANTOPRAZOLE SODIUM IV 40 MG VIAL IV PUSH (21:40)
[2024-06-01] MEDS: rOPINIRole HCL 0.25 MG TABLET PO (21:40)
[2024-06-01] MEDS: KETOROLAC 0.5% OP SOLN 5 ML BOTTLE 1 DROP LEFT EYE (21:40)
[2024-06-01 23:55] LABS: Glucose Point of Care 168 mg/dl (65-105)
[2024-06-02] VITALS (8 sets, daily range): BP systolic 125–149; BP diastolic 41–67; PULSE 74–96; RESP 16–22; TEMP 36.8–37.7; O2SAT 96–99
--- NOTE | ~2024-06-02 | US_ITS ---
EXAMINATION: US abscess cyst asp DATE: 06/05/2024 17:19 INDICATION: Subcutaneous abscess lateral to right hip. TECHNIQUE: The procedure including the risks, benefits, and alternatives was discussed with the patie nt. Risks discussed included bleeding and infection. The patient understood the risks and agreed to p roceed. The skin of the lateral right pelvis was prepped and draped in usual sterile fashion. Anesth etic was administered with 1% lidocaine subcutaneously. An 18 gauge needle was inserted into the sub cutaneous abscess lateral to right hip under continuous sonographic guidance. Fluid was aspirated. Th e entry site was cleaned and dressed. There were no immediate complications. FINDINGS: Ultrasound images demonstrate the needle in a subcutaneous abscess lateral to right hip. IMPRESSION: 1. Ultrasound-guided needle aspiration of a subcutaneous abscess lateral to right hip yielding 45 mL red, opaque fluid. Reviewed, dictated and finalized at location A. MOBILE ASSEMBLER IMPRESSION: 1. Ultrasound-guided needle aspiration of a subcutaneous abscess lateral to rig ht hip yielding 45 mL red, opaque fluid.
--- NOTE | ~2024-06-02 | US_ITS ---
EXAMINATION: US paracentesis abd w/image DATE: 06/04/2024 14:59 INDICATION: Ascites. TECHNIQUE: The procedure and its risks, benefits, and alternatives were discussed with the patient. P otential risks discussed included bleeding and infection. The skin was prepped and draped in sterile fashion. 1% lidocaine was used for local anesthesia. Under ultrasound guidance, a 5 Fr catheter with trochar was advanced into the ascites in the right abdomen. Fluid was aspirated. The catheter was rem tong, and a dressing was applied. There were no immediate complications. FINDINGS: Ultrasound images demonstrate ascites and the catheter within the fluid. IMPRESSION: 1. Successful ultrasound-guided paracentesis yielding 2200 mL of yellow fluid. Reviewed, dictated and finalized at location A. PING PRESS OPERATOR
--- NOTE | ~2024-06-02 | XR_ITS ---
EXAMINATION: XR chest 1V portable DATE: 06/02/2024 11:19 INDICATION: Cough. TECHNIQUE: A single frontal view of the chest was obtained. COMPARISON: Chest single view 05/31/2024 FINDINGS: Calcified right lung nodules and calcified right hilar lymph nodes are consistent with old granulomatous disease. No pleural effusion or pneumothorax. The heart size is normal. There are surgi christopher clips in the abdomen. IMPRESSION: 1. No acute cardiopulmonary disease. Reviewed, dictated and finalized at location A. NCT FACULTY
--- NOTE | ~2024-06-02 | US_ITS ---
EXAMINATION: US venous doppler [facility] DATE: 06/02/2024 10:48 INDICATION: Lower limb edema. TECHNIQUE: Grayscale ultrasound images without and with compression and Doppler ultrasound images of the bilateral lower extremity veins were obtained. COMPARISON: Ultrasound 02/27/2023 FINDINGS: The visualized portions of right common femoral vein, profunda (deep) femoral vein, femoral vein, pop liteal vein, posterior tibial veins, and greater saphenous vein outflow are patent. There is thrombus in the right peroneal veins. The visualized portions of left common femoral vein, profunda femoral vein, femoral vein, popliteal v ein, peroneal veins, posterior tibial veins, and greater saphenous vein outflow are patent. IMPRESSION: 1. Deep vein thrombosis involving the right peroneal veins. Reviewed, dictated and finalized at location A. OGRAPHY MANAGER
--- NOTE | ~2024-06-02 | US_ITS ---
EXAMINATION: US hip asp inj w image RT DATE: 06/05/2024 17:11 INDICATION: Sepsis. TECHNIQUE: The procedure including the risks, benefits, and alternatives was discussed with the patie nt. Risks discussed included bleeding and infection. The patient understood the risks and agreed to p roceed. The skin overlying the right hip was prepped and draped in usual sterile fashion. Anesthetic was administered with 1% lidocaine subcutaneously. An 18 gauge needle was inserted into the right h ip joint under ultrasound guidance. No fluid could be aspirated. The entry site was cleaned and dress ed. There were no immediate complications. FINDINGS: Ultrasound images demonstrate the needle in the right hip joint. IMPRESSION: 1. Ultrasound-guided needle aspiration of the right hip joint yielding no fluid. Reviewed, dictated and finalized at location A. RIST IMPRESSION: 1. Ultrasound-guided needle aspiration of the right hip joint yielding no fluid .
--- NOTE | ~2024-06-02 | CT_ITS ---
EXAMINATION: CT LE RT wo con DATE: 06/02/2024 12:33 INDICATION: Right lower limb hematoma. TECHNIQUE: Computed tomography (CT) of the right lower limb was performed without intravenous contras t. Automated exposure control and iterative reconstruction technique were employed. The dose-length p roduct was 1271.31 mGy-cm. COMPARISON: CT abdomen and pelvis 05/31/2024, fluoroscopy 05/16/2024. FINDINGS: There is a moderate volume of ascites. There is a right inguinal hernia containing ascites. There is subcutaneous edema in the body wall and right thigh. There is a bipolar right hip hemiarthr oplasty in near-anatomic alignment. There is a comminuted fracture of greater trochanter of proximal right femur. The main proximal fracture fragment demonstrates 6 mm distraction. There is mild right h ip osteoarthritis. There is lumbar levocurvature and severe spondylosis. There is a subcutaneous samantha mary alice lateral to the right hip measuring 6.5 x 3.4 x 18.5 cm. Skin jennie are noted. IMPRESSION: 1. Subcutaneous hematoma lateral to the right hip. 2. Comminuted fracture of greater trochanter of proximal right femur. 3. Bipolar right hip hemiarthroplasty in near-anatomic alignment. 4. Mild right hip osteoarthritis. 5. Moderate volume of ascites. Reviewed, dictated and finalized at location A. ER MEDICAL DIRECTOR
[2024-06-02] MEDS: HYDROcodone/acetaminophen (*CRX) 5-325 MG TABLET 1 TAB PO ×2 (00:45→21:27)
[2024-06-02 00:56] LABS: Hematocrit 26.5 % (37.0-47.0); Hemoglobin 8.6 g/dL (12.0-15.0)
[2024-06-02 05:11] LABS: Hematocrit 25.3 % (37.0-47.0); Hemoglobin 8.2 g/dL (12.0-15.0); Mean Corpuscular HGB Conc 32.4 g/dl (32-36); Mean Corpuscular Hemoglobin 31.2 pg (26-34); Mean Corpuscular Volume 96.2 fl (80-100); Mean Platelet Volume 10.8 fl (7.4-10.4); Platelet Count Result 128 k/mm3 (150-375); Red Blood Count 2.63 M/mm3 (4.2-5.4); Red Cell Distribution Width 22.3 % (11.5-14.5); White Blood Count 5.7 K/mm3 (4.5-10.0)
[2024-06-02 05:22] LABS: Alanine Aminotransferase 12 U/L (6-35); Albumin Level 2.4 g/dL (3.5-5.1); Alkaline Phosphatase 111 U/L (38-126); Anion Gap 2 mmol/L (4-12); Aspartate Amino Transferase 35 U/L (14-36); Bilirubin,Total 2.6 mg/dL (0.2-1.3); Blood Urea Nitrogen 24 mg/dL (7-17); Calcium 7.9 mg/dL (8.4-10.2); Carbon Dioxide 29 mmol/L (22-30); Chloride 103 mmol/L (98-107); Estimated CRCL calculation 51 ml/min; Estimated Glomerular Filt Rate > 60; Glucose 147 mg/dL (65-110); Sodium 134 mmol/L (137-145)
[2024-06-02 05:22] LABS: Glucose Point of Care 153 mg/dl (65-105)
[2024-06-02 05:27] LABS: INR 1.6; Prothrombin Time 19.3 Seconds (11.1-14.7)
[2024-06-02 05:28] LABS: Partial Thromboplastin Time 41.8 Seconds (22.3-36.8)
[2024-06-02 05:29] LABS: Prealbumin 6.6 mg/dL (17.6-36.0)
[2024-06-02] MEDS: MORPHINE SULFATE (*CRX) 2 MG/ML INJ IV PUSH ×2 (06:01→18:12)
--- NOTE | 2024-06-02 08:07 | P.PNIM_ITS ---
Progress Note: A&P Assessment and Plan (1) Symptomatic anemia: Code(s): D64.9 - Anemia, unspecified Status: Acute Assessment and Plan: * History of anemia at baseline * Hemoglobin yesterday was 5.7 requiring 2 units of blood to be given * She was noted to have dark tarry stool with blood on stool at [facility] * History of internal hemorrhoids * Patient was anemic postoperative as well requiring 2 units of blood on 05/18 and 05/19 * Patient was on Xarelto for DVT prophylaxis postoperatively which has been held since 05/31/24 * GI consulted and is currently holding off on any intervention at this time * Continue Protonix b.i.d. * Continue NPO status * SCDs for DVT prophylaxis * Fibrinogen normal * Continue ferrous sulfate * Hemoglobin stable 8.6> 8.6> 8.2 since her last blood transfusion, vital signs are stable * Reported shortness of breath, chest x-ray over at [facility] was negative for any acute findings. She is currently on room air. Likely secondary to her anemia. (2) Melena: Code(s): K92.1 - Melena Status: Acute Assessment and Plan: See above (3) Cirrhosis of liver with ascites: Code(s): K74.60 - Unspecified cirrhosis of liver; R18.8 - Other ascites Status: Acute Assessment and Plan: * Abdomen/pelvis CT from 05/31/2024 showed moderate ascites with cirrhosis * Will get hepatitis panel today * Total bili 2.6 * Liver enzymes within normal limits * Ammonia level normal (4) Diastolic dysfunction: Code(s): I51.89 - Other ill-defined heart diseases Status: Acute Assessment and Plan: * Last echo reviewed from 02/27/2023 which showed a normal LV systolic function with an estimated EF of 65-70%, diastolic dysfunction noted, moderate aortic valve sclerosis moderate mitral and tricuspid valve regurgitation, mild p ulmonary hypertension * Bilateral lower extremity swelling * Will get ultrasound Doppler today to rule out DVT (5) Lower extremity edema: Code(s): R60.0 - Localized edema Status: Acute Assessment and Plan: * US doppler bilateral lower extremity ordered (6) Closed fracture of neck of right femur: Qualifiers: Encounter type: initial encounter Qualified Code(s): S72.001A - Fracture of unspecified part of neck of right femur, initial encounter for closed fracture Code(s): S72.001A - Fracture of unspecified part of neck of right femur, initial encounter for closed fracture Status: Acute Assessment and Plan: * S/P right bipolar hip replacement with Dr. Balbuena on 05/16/24 * Surgical incision with jennie, ecchymosis noted right thigh and lateral hip * PT and OT ordered * Recently at [facility] for swing bed program up until yesterday * Dr. Balbuena notified of change in status * Continue pain control * Will obtain wound culture and blood cultures today however white blood cell count normal, lactic acid within normal limits (7) Diabetes: Code(s): E11.9 - Type 2 diabetes mellitus without complications Status: Acute Assessment and Plan: * Blood sugars ranging 147-173 * Hgb A1C 5.2 * Accu checks q.6 hour * Moderate dose SSI ordered * hypoglycemic protocol in place * Currently NPO (8) Altered mental status: Code(s): R41.82 - Altered mental status, unspecified Status: Acute Assessment and Plan: * Patient received Neurontin however this was discontinued over at [facility]. We will go ahead and hold the Neurontin again * Ammonia level normal * UA was checked over at [facility] and was negative * Head CT was checked at [facility] in was also negative for any acute findings * Likely secondary to the Neurontin * Neuro checks q.4 hour (9) Sore throat: Code(s): J02.9 - Acute pharyngitis, unspecified Status: Acute Assessment and Plan: * Will check rapid strep * Will check respiratory panel * Low-grade temp this morning of 99.5 however she had quite a few blankets on top of her. * White blood cell count normal at 5.7, lactic acid 1.9 * Will check procalcitonin Time Spent With Patient Time with patient: Greater than 35 minutes Subjective Date/time seen: 06/02/24 08:07 Interval history: Interval History: (Copy forward from my transfer summary at [facility]) Khadra Crook is a 84 year old female with a significant past medical history of anemia, arthritis, dyslipidemia, gout, hypertension, type 2 diabetes mellitus, liver cancer, former smoker who presented to [facility] for swing bed rehab program on 05/22/2024 from [facility] after having a right bipolar hip replacement done on 05/16/2024. patient originally presented to the hospital on 05/16/2024 after sustaining a mechanical fall at home. Patient apparently was coming in from letting her dog out to go the bathroom when she tripped over the door frame causing her to fall on her right side. She immediately had pain and EMS was called. She was brought to [facility] initially with Ortho consult for a right femoral neck fracture seen on x-ray. She went to the operating room that day and had a right bipolar hip replacement done with Dr. Balbuena. patient was seen by therapy who is recommending SNF placement. The only complication after surgery is that her hemoglobin dropped on 05/18 down to 6.8 requiring a unit of blood to be given. They repeated an H&H on 05/18/2024 requiring another unit of blood to be given. Her H&H was considered stable after those 2 units. She was then transferred to [facility] for the swing bed rehab program on 05/22/2024 in stable condition. Patient started working with therapy here at [facility] and had no complications up until 05/30/2024 when the patient started to become more confused with increased pain and started passing bright red blood per rectum. She was place on Xarelto for DVT prophylaxis immediately postop and was going to continue this per protocol after having a total hip replacement However this was held on the night of of 05/30/2024. hemoglobin went from 8.5 down to 7.7 that evening and then in the morning was still stable at 7.6. Patient was not symptomatic. Her vital signs were stable including her blood pressure. This morning we went ahead and checked her labs again which shown a further drop in hemoglobin of 5.7 requiring blood transfusion. With these concerns we decided that it was in our best interest to send her to [place] for GI consult. She was given 2 units of blood at [place] with the 2nd unit infusing en route to [place]. her hemoglobin in between blood transfusions was 6.7. I spoke with Dr. Negro, (GI) who accepts consult. I then spoke with Dr. Lou, (hospitalist) who accepts patient transfer to the hospital. Lastly, I called Dr. Balbuena (orthopedic surgeon) out of courtesy to update and let him know we held Xarelto and aspirin due to GI bleeding. Dr. Balbuena said that he will see her on Monday. Patient was transferred in stable condition via EMS. Subjective: Patient alert to voice, confused again today however her Neurontin got restarted upon arrival to the hospital. Complaining of a sore throat and low grade temp today. Labs reviewed. Review of Systems Review of Systems: 12 systems were reviewed and are negativ e except for as per HPI. Constitutional: Constitutional: Reports as per HPI and Reports no additional constitutional complaints Eyes: Eyes: Reports as per HPI and Reports no additional eye complaints ENT: Reports system reviewed and no additional complaints, except as documented and Reports as per HPI Cardiovascular: Cardiovascular: Reports as per HPI and Reports no additional cardiovascular complaints Respiratory: Respiratory: Reports as per HPI and Reports no additional respiratory complaints Gastrointestinal: Gastrointestinal: Reports as per HPI and Reports no additional gastrointestinal complaints Genitourinary: Genitourinary: Reports no additional female genitourinary complaints and Reports as per HPI Musculoskeletal: Musculoskeletal: Reports no additional musculoskeletal complaints and Reports as per HPI Integumentary/Breasts: Skin/Breast: Reports system reviewed and no additional complaints, except as docu and Reports as per HPI Neurologic: Reports system reviewed and no additional complaints, except as documented and Reports as per HPI Psychiatric: Psychiatric: Reports no additional psychiatric complaints and Reports as per HPI Exam Narrative: General: In no acute distress, well nourished Head:acute encephalopathy Eyes: PERRLA, sclera clear ENT: moist mucous membranes, nasal passages clear Neck: supple, no JVD, no adenopathy, trachea midline Cardiac: Normal S1 and S2. No murmur, gallops or friction rubs, peripheral pulses intact. Respiratory: Lungs clear to auscultation, no adventitious lung sounds, currently on room air Gastrointestinal: soft, non-distended, non-tender, normoactive bowel sounds. : voiding without difficulty, bebo urine Extremities: moves all extremities well, 1-2+ pitting edema bilateral lower extremities Skin: Surgical incision on right hip open the air with jennie, no redness noted, serous drainage noted on bandage. Neuro: Alert to voice and follows commands. Psych: Minimally interactive Objective Data Vital Signs Vital Signs: Vital Signs - 24 hr 06/01/24 16:15 06/01/24 17:00 06/01/24 18:14 Temperature 98.1 F 98.2 F Pulse Rate 76 72 Respiratory Rate 18 17 Blood Pressure 132/78 132/50 L Pulse Oximetry 100 99 100 Oxygen Delivery Room Air 06/01/24 20:54 06/01/24 21:07 06/01/24 20:56 Temperature 98.3 F Pulse Rate 73 75 Respiratory Rate 16 Blood Pressure 115/45 L Pulse Oximetry 100 Oxygen Delivery Room Air 06/02/24 06:00 Temperature 99.2 F Pulse Rate 80 Respiratory Rate 16 Blood Pressure 136/46 L Pulse Oximetry 96 Oxygen Delivery Intake/Output Intake/Output: Intake & Output 05/30/24 05/31/24 06/01/24 06/02/24 23:59 23:59 23:59 23:59 Intake Total 400 300 Output Total 600 Balance 400 -300 Meds/Results Medications: Active Medications Generic Name Dose Route Start Last Admin Trade Name Freq PRN Reason Stop Dose Admin Acetaminophen 650 mg 06/01/24 16:38 Acetaminophen 325 Mg Tablet PO Q4H PRN Mild Pain (1-3) or Fever Hydrocodone Bitart/Acetaminophen 1 tab 06/01/24 18:43 06/02/24 00:45 Hydrocodone/Acetaminophen (*Crx) 5-325 Mg Tablet PO 1 tab Q6H PRN Administration Pain Rated 4-6 Allopurinol 100 mg 06/03/24 09:00 Allopurinol 100 Mg Tablet PO [id number] JOSE Calcium Carbonate 500 mg 06/02/24 09:00 Calcium/Vitamin D 500 Mg/5 Mcg (200 I.U.) Tablet PO BID JOSE Dextrose 12.5 gm 06/01/24 20:32 Dextrose 50% 25 Gm/50 Ml Syringe IV PUSH PRN PRN Hypoglycemia Protocol Ferrous Sulfate 325 mg 06/02/24 09:00 Ferrous Sulfate [address] PO BID JOSE Gabapentin 100 mg 06/01/24 20:50 06/01/24 21:06 Gabapentin 100 Mg Capsule PO 100 mg BID JOSE Administration Glucagon 1 mg 06/01/24 20:32 Glucagon For Inj 1 Mg Vial IM PRN PRN Hypoglycemia Protocol Glucose 15 gm 06/01/24 20:32 Glucose Oral Gel 15 Gm Of Glucse In 37.5 Gm Tube PO PRN PRN Hypoglycemia Protocol Dextrose 1,000 mls @ 100 mls/hr 06/01/24 20:32 Dextrose 5% 1,000 Ml IVPB PRN PRN Hypoglycemia Protocol Insulin Aspart 3 - 6 units 06/02/24 00:00 06/02/24 05:25 Insulin Aspart (*Bkc) 100 Units/Ml SUB-Q Not Given Q6HR [facility] Protocol Ketorolac Tromethamine 1 drop 06/01/24 20:50 06/01/24 21:40 Ketorolac 0.5% Op Soln 5 Ml Bottle LEFT EYE 1 drop TID [facility] Administration Lidocaine 2 patch 06/02/24 09:00 Lidocaine 5% Patch TOPICAL DAILY [facility] Morphine Sulfate 2 mg 06/01/24 20:22 06/02/24 06:01 Morphine Sulfate (*Crx) 2 Mg/Ml Inj IV PUSH 2 mg Q4H PRN Administration Pain Rated 7-10 Moxifloxacin HCl 1 drop 06/01/24 21:00 06/01/24 21:39 Moxifloxacin Hcl 0.5% 3 Ml Ophth Soln LEFT EYE 1 drop Q12H [facility] Administration Pantoprazole Sodium 40 mg 06/01/24 21:10 06/01/24 21:40 Pantoprazole Sodium Iv 40 Mg Vial IV PUSH 40 mg Q12HR [facility] Administration Polyethylene Glycol 17 gm 06/01/24 20:35 Polyethylene Glycol 3350 17 Gm Powd.Pack PO DAILY PRN Constipation Propranolol HCl 20 mg 06/01/24 21:00 06/01/24 21:07 Propranolol Hcl 20 Mg Tablet PO 20 mg Q12H [facility] Administration Ropinirole HCl 0.25 mg 06/01/24 21:00 06/01/24 21:40 Ropinirole Hcl 0.25 Mg Tablet PO 0.25 mg HS [facility] Administration Senna/Docusate Sodium 2 tab 06/01/24 20:50 06/01/24 21:06 Senna/Docusate Sodium Tablet PO Not Given BID [facility] Labs Labs: Laboratory Results - last 24 hr 06/01/24 06/01/24 06/02/24 18:22 23:49 00:34 WBC RBC Hgb 8.6 L 8.6 L Hct 25.9 L 26.5 L MCV MCH MCHC RDW Plt Count MPV PT INR APTT Sodium Potassium Chloride Carbon Dioxide Anion Gap BUN Creatinine Estim Creat Clear Calc Estimated GFR Glucose POC Capillary Glucose 168 H Calcium Magnesium Total Bilirubin AST ALT Alkaline Phosphatase Total Protein Albumin Prealbumin TSH (Reflex) 06/02/24 06/02/24 03:57 05:17 WBC 5.7 RBC 2.63 L Hgb 8.2 L Hct 25.3 L MCV 96.2 MCH 31.2 MCHC 32.4 RDW 22.3 H Plt Count 128 L MPV 10.8 H PT 19.3 H INR 1.6 APTT 41.8 H Sodium 134 L Potassium 4.0 Chloride 103 Carbon Dioxide 29 Anion Gap 2 L BUN 24 H Creatinine 0.80 Estim Creat Clear Calc 51 Estimated GFR > 60 Glucose 147 H POC Capillary Glucose 153 H Calcium 7.9 L Magnesium 2.0 Total Bilirubin 2.6 H AST 35 ALT 12 Alkaline Phosphatase 111 Total Protein 6.0 L Albumin 2.4 L Prealbumin 6.6 L TSH (Reflex) 4.520 Quality VTE Prophylaxis VTE prophylaxis: mechanical ordered
[2024-06-02 08:24] LABS: Free T4 Free Thyroxine Reflex 1.54 ng/dL (0.78-2.19)
[2024-06-02 08:57] LABS: Fibrinogen 316 mg/dl (215-510)
--- NOTE | 2024-06-02 09:47 | PCOTNOTE ---
Addendum entered by Buster Hernandez, OTR/Itz, CHT 06/02/24 09:50: After speaking with nursing she recommends we hold off on this patient until tomorrow. They are still doing work up on her, she has a fever, and is ill. Will continue to attempt. Original Note: Attempted to see patient for OT evaluation at 0945. Patient with nursing, hospitalist, and then US is waiting outside her room. Will continue to attetmpt.
[2024-06-02 09:55] LABS: Total Triiodothyronine (T3) 0.98 NG/ML (0.97-1.69)
[2024-06-02 10:00] LABS: Hepatitis B Surface Antigen Negative (Negative)
[2024-06-02] MEDS: CALCIUM/VITAMIN D 500 MG/5 MCG (200 I.U.) TABLET PO ×2 (10:00→18:18)
[2024-06-02] MEDS: FERROUS SULFATE 325 MG TABLET DR PO ×2 (10:00→18:18)
[2024-06-02] MEDS: PROPRANOLOL HCL 20 MG TABLET PO ×2 (10:00→19:51)
[2024-06-02] MEDS: MOXIFLOXACIN HCL 0.5% 3 ML OPHTH SOLN 1 DROP LEFT EYE ×2 (10:01→20:00)
[2024-06-02] MEDS: ACETAMINOPHEN 500 MG TABLET 1000 MG PO ×2 (10:01→18:17)
[2024-06-02] MEDS: KETOROLAC 0.5% OP SOLN 5 ML BOTTLE 1 DROP LEFT EYE ×3 (10:01→18:18)
[2024-06-02] MEDS: LIDOCAINE 5% PATCH 2 PATCH TOPICAL (10:01)
[2024-06-02] MEDS: PANTOPRAZOLE SODIUM IV 40 MG VIAL IV PUSH ×2 (10:01→20:00)
[2024-06-02 10:06] LABS: HAV RESULT Negative (Negative); Hepatitis B Core IgM Result Negative (Negative)
[2024-06-02] MEDS: DEXTROSE 5%/0.9% SOD CHL 1,000 ML 50 ML IV CONT (10:12)
[2024-06-02 10:18] LABS: Hepatitis C Virus Antibody Negative (Negative)
[2024-06-02 10:22] LABS: Ammonia 28 umol/L (9-30); Lactic Acid Reflex 1.9 mmol/L (0.7-2.0)
--- NOTE | 2024-06-02 10:23 | PCPTNOTE ---
Talked to nursing and patient has multiple tests to perform and blood draws, and wound cultures to do. Recommend coming back tomorrow when patient will hopefully be more stable.
[2024-06-02 10:52] LABS: Strep Group A RT-PCR NOT DETECTED (Negative)
[2024-06-02 11:03] LABS: Influenza A QL RT-PCR Negative (Negative); Influenza B QL RT-PCR Negative (Negative); RSV RNA, RT-PCR Negative (Negative); SARS-CoV-2 RNA PCR Negative (Negative)
[2024-06-02 11:20] LABS: Procalcitonin 0.1 ng/mL
[2024-06-02 12:11] LABS: Glucose Point of Care 169 mg/dl (65-105)
--- NOTE | 2024-06-02 12:15 | P.CONGI_ITS ---
Assessment and Plan Assessment and plan (1) Cirrhosis of liver with ascites: Code(s): K74.60 - Unspecified cirrhosis of liver; R18.8 - Other ascites Status: Acute (2) Melena: Code(s): K92.1 - Melena Status: Acute (3) Symptomatic anemia: Code(s): D64.9 - Anemia, unspecified Status: Acute (4) GI bleeding: Code(s): K92.2 - Gastrointestinal hemorrhage, unspecified Status: Acute (5) Anemia: Code(s): D64.9 - Anemia, unspecified Status: Acute (6) Closed fracture of neck of right femur: Qualifiers: Encounter type: initial encounter Qualified Code(s): S72.001A - Fracture of unspecified part of neck of right femur, initial encounter for closed fracture Code(s): S72.001A - Fracture of unspecified part of neck of right femur, initial encounter for closed fracture Status: Acute Plan cirrhosis/ascites GI bleed/melena new blood clot in the right leg status post right hip surgery on May 16 Xarelto on hold May 31 low-grade fever I could not get any meaningful history from the patient appears to be confused I did order ammonia level also advised the staff to draw the blood cultures to rule out any sepsis. Will check the lactic acid level. I will also start the patient on broad-spectrum antibiotics to cover for sepsis and will start the patient on rifaximin. rectal exam done at the bedside showed dark blackish brown stool no red blood noted I will keep the patient on PPI 40mg IV q.12 hours serial H&H and monitoring closely will start the patient on rifaximin of the and possible lactulose close monitoring of the patient will reassess the patient tomorrow morning if patient appears to be more stable we will proceed with the upper endoscopy for evaluation to rule out any peptic ulcer disease at this time patient is hemodynamically stable will keep the patient NPO for now as she is at risk of aspiration because of her mental status changes with multiple issues going on patient is not stable for endoscopy at this point. patient's H&H has been stable and patient hemodynamically stable at this point will wait for other etiologies including sepsis and encephalopathy needs to be ruled out GI Consult Note Consult date/time: 06/02/24 12:15 Reason for consult: dark black stool anemia history of right hip surgery on May 16 on Xarelto had on May 31 mental status changes low-grade fever history of gastric bypass surgery cirrhosis ascites HPI: Khadra Crook is a 84 year old female who was transferred from the rehab unit because of dark or black stool patient according to the records had a right hip surgery on May 16 and after the surgery she was placed on Xarelto. Patient did get a blood transfusion 2 of them and then transferred to [facility] the lowest hemoglobin I could see was 5.6 and when she came her labs shows hemoglobin of 8.6 and the last 1 is 8.2. I could not get any meaningful history from the patient patient appears to be sleepy but arousable. Appear to be alert oriented x2 very slow to react. Patient right thigh exam shows it to be swollen with the recent surgery and with the bruise on it records were reviewed. Patient herself is not a very reliable historian but denies any nausea vomiting denies any hematemesis. Patient according to the records as history of gastric bypass surgery and also has history of cirrhosis. Last platelets were 128 liver function tests are normal INR is 1.6 Review of Systems Review of Systems: patient is not a reliable historian because of confusion PMFSH Past Medical History Medical History (Updated 06/02/24 @ 10:40 by Tila Major APRN) Anemia Arthritis Cirrhosis of liver with ascites Dyslipidemia Gout Hypertension Liver cancer Type 2 diabetes mellitus Surgical History Surgical History (Updated 06/01/24 @ 12:44 by Mayra Flores PA-C) History of ablation of neoplasm of liver History of appendectomy History of gastric bypass History of hysterectomy History of laparoscopic cholecystectomy History of partial replacement of right hip joint using bipolar prosthesis (05/16/24) repair of right femoral neck fracture History of tonsillectomy Family History Family History Father Brain tumor Cerebrovascular accident Mother Cerebrovascular accident Mother Cerebrovascular accident Social History Social History (Updated 06/01/24 @ 12:45 by Mayra Flores PA-C) Social History: Surrogate medical decision maker: Nicole Oliva ([phone]), daughter. Code status: Full code. Smoking packs per day: 1 Smoking cigarettes per day: 20.0 Years smoked: 5 Smoking pack-years: 5.00 Smoking status: Former smoker Tobacco type: cigarettes Second hand tobacco smoke exposure: No Alcohol intake: never Substance use: never Substance use type: does not use Do You Feel Safe in your Home?: Yes Lack of Transportation: No Lack of Food: Never True Current Housing: I Have Housing Concerned About Future Housing: No Difficulty Paying Gas/Electric Bills: No Difficulty Paying for Meds: No Currently Unemployed: No Education: Grade School Difficulty w/ Childcare or Family Care: No Living arrangements: alone Additional living arrangements comments: Lives home alone with her dog. She is normally independent without use of assistive devices. Spiritual care concerns: No Meds Home Medications and Allergies Home Medications Medication Instructions Recorded Confirmed Type allopurinol 100 mg tablet 100 mg PO .COMPLEX 11/06/19 06/01/24 History propranolol 20 mg tablet 20 mg PO Q12H 11/06/19 06/01/24 History aspirin 81 mg tablet 81 mg PO DAILY 06/30/22 06/01/24 History ketorolac 0.5 % eye drops 1 drp LEFT EYE TID 05/16/24 06/01/24 History moxifloxacin 0.5 % eye drops 1 drp LEFT EYE Q12H 05/16/24 06/01/24 History pantoprazole 40 mg tablet,delayed 40 mg PO Q12H 05/16/24 06/01/24 History release rivaroxaban 10 mg tablet (Xarelto) 10 mg PO DAILY #14 tabs 05/20/24 06/01/24 Rx celecoxib 200 mg capsule (Celebrex) 200 mg PO DAILY #30 caps 05/21/24 06/01/24 Rx cyclobenzaprine 10 mg tablet 10 mg PO Q8H PRN Muscle Spasm #180 05/21/24 06/01/24 Rx tabs ferrous sulfate 325 mg (65 mg 325 mg PO BID #60 tabs 05/21/24 06/01/24 Rx iron) tablet,delayed release sennosides 8.6 mg-docusate sodium 2 tab PO BID #60 tabs 05/21/24 06/01/24 Rx 50 mg tablet (Senokot-S) acetaminophen 500 mg capsule 1,000 mg PO BID 06/01/24 06/01/24 History calcium carb-ergocalciferol (vit 1 tablet PO BID 06/01/24 06/01/24 History D2) 250 mg (625 mg)-125 unit tablet gabapentin 100 mg capsule 100 mg PO BID 06/01/24 06/01/24 History hydrocodone 7.5 mg-acetaminophen 1 tablet PO Q4H PRN Pain, Severe 06/01/24 06/01/24 History 325 mg tablet insulin lispro 100 unit/mL 1 sliding scale dose subcut 06/01/24 06/01/24 History subcutaneous pen USEASDIRECTD lidocaine 5 % topical patch 2 patch topical DAILY 06/01/24 06/01/24 History polyethylene glycol 3350 17 gram 17 g PO DAILY PRN Constipation 06/01/24 06/01/24 History oral powder packet (Miralax) ropinirole 0.25 mg tablet 0.25 mg PO HS 06/01/24 06/01/24 History tramadol 25 mg tablet 25 mg PO Q4H PRN Pain, Moderate 06/01/24 06/01/24 History Allergies Allergy/AdvReac Type Severity Reaction Status Date / Time No Known Allergies Allergy Verified 05/16/24 13:37 Vital Signs Vital Signs - 24 hr 06/01/24 16:15 06/01/24 17:00 06/01/24 18:14 Temperature 98.1 F 98.2 F Pulse Rate 76 72 Respiratory Rate 18 17 Blood Pressure 132/78 132/50 L Pulse Oximetry 100 99 100 Oxygen Delivery Room Air 06/01/24 20:54 06/01/24 21:07 06/01/24 20:56 Temperature 98.3 F Pulse Rate 73 75 Respiratory Rate 16 Blood Pressure 115/45 L Pulse Oximetry 100 Oxygen Delivery Room Air 06/02/24 06:00 06/02/24 09:32 06/02/24 10:00 Temperature 99.2 F 99.5 F Pulse Rate 80 96 74 Respiratory Rate 16 18 Blood Pressure 136/46 L 149/67 H Pulse Oximetry 96 97 Oxygen Delivery 06/02/24 11:43 Temperature 98.2 F Pulse Rate 80 Respiratory Rate 18 Blood Pressure 125/44 L Pulse Oximetry 97 Oxygen Delivery Exam Narrative: appears to be mildly confused alert oriented X 2 Const: Other: sleepy but arousable Neck: Other: supple Chest: Other: air entry equal bilateral clear Resp: Other: chest clear bilateral Cardio: Other: S1-S2 regular rate rhythm GI: Other: mild to moderately distended no tenderness no rebound no guarding possible ascites Skin: Other: large bruise on the right thigh Neuro: Other: able to move all the 4 limbs sleepy but arousable alert oriented x2 Results Labs 06/02/24 03:57 06/02/24 03:57 Labs: Short CBC 06/01/24 06/02/24 06/02/24 Range/Units 18:22 00:34 03:57 WBC 5.7 (4.5-10.0) K/mm3 Hgb 8.6 L 8.6 L 8.2 L (12.0-15.0) g/dL Hct 25.9 L 26.5 L 25.3 L (37.0-47.0) % Plt Count 128 L (150-375) k/mm3 BMP 06/02/24 03:57 Sodium 134 L Potassium 4.0 Chloride 103 Carbon Dioxide 29 BUN 24 H Creatinine 0.80 Glucose 147 H Calcium 7.9 L Liver Function 06/02/24 Range/Units 03:57 Total Bilirubin 2.6 H (0.2-1.3) mg/dL AST 35 (14-36) U/L ALT 12 (6-35) U/L Alkaline Phosphatase 111 (38-126) U/L Albumin 2.4 L (3.5-5.1) g/dL
[2024-06-02 13:11] LABS: CRP 3.6 mg/dL (<1.0)
[2024-06-02] MEDS: levoFLOXacin 500 MG/D5W 100 ML 500 MG/100 ML BAG 100 MG IVPB (14:05)
[2024-06-02 14:42] LABS: Hematocrit 25.5 % (37.0-47.0); Hemoglobin 8.3 g/dL (12.0-15.0)
[2024-06-02 15:23] LABS: Basophils Percent Auto 0.2 % (0.2-1.2); Eosinophils Percent Auto 0.2 % (0-4.4); Immature Granulocyte Absolute 0.01 K/mm3 (0.00-0.031); Immature Granulocyte Percent A 0.2 % (0-0.5); Lymphocytes Absolute Auto 0.42 K/mm3 (0.9-3.2); Lymphocytes Percent Auto 7.2 % (18.3-44.2); Mean Corpuscular HGB Conc 32.8 g/dl (32-36); Mean Corpuscular Hemoglobin 31.5 pg (26-34); Mean Corpuscular Volume 96.2 fl (80-100); Mean Platelet Volume 10.2 fl (7.4-10.4); Monocytes Absolute Auto 0.5 K/mm3 (0.1-0.6); Monocytes Percent Auto 8.2 % (2.6-8.5); Neutrophils Absolute Auto 4.9 K/mm3 (1.3-6.7); Platelet Count Result 109 k/mm3 (150-375); Red Cell Distribution Width 22.4 % (11.5-14.5); White Blood Count 5.8 K/mm3 (4.5-10.0)
[2024-06-02 15:36] LABS: Platelet Estimate Decreased (Adequate)
[2024-06-02 15:37] LABS: Anisocytosis 1+; Ovalocytes 1+; Schistocytes None Seen
[2024-06-02 18:10] LABS: Glucose Point of Care 213 mg/dl (65-105)
[2024-06-02] MEDS: SUCRALFATE SUSP 100 MG/ML 10 ML UDC 1000 MG PO ×2 (18:17→20:00)
[2024-06-02] MEDS: LACTULOSE 20 GM/30 ML UDC 15 GM PO (18:17)
[2024-06-02] MEDS: INSULIN ASPART (*BKC) 100 UNITS/ML SUB-Q (18:18)
[2024-06-02] MEDS: rifAXIMin 550 MG TABLET PO (19:51)
[2024-06-02] MEDS: rOPINIRole HCL 0.25 MG TABLET PO (19:51)
[2024-06-02] MEDS: traMADol HCL (*CRX) 25 MG TABLET PO (19:51)
[2024-06-02 22:39] LABS: Hemoglobin 8.7 g/dL (12.0-15.0)
[2024-06-03 00:14] LABS: Glucose Point of Care 230 mg/dl (65-105)
[2024-06-03] MEDS: MORPHINE SULFATE (*CRX) 2 MG/ML INJ IV PUSH ×2 (02:16→08:44)
[2024-06-03] MEDS: HYDROcodone/acetaminophen (*CRX) 5-325 MG TABLET 1 TAB PO ×3 (04:40→20:15)
[2024-06-03 05:27] VITALS: BP 143/57; PULSE 82; RESP 20; TEMP 37.6; O2SAT 93
[2024-06-03 05:37] LABS: Glucose Point of Care 207 mg/dl (65-105)
[2024-06-03 07:47] LABS: Basophils Percent Auto 0.3 % (0.2-1.2); Hematocrit 24.1 % (37.0-47.0); Hemoglobin 7.9 g/dL (12.0-15.0); Immature Granulocyte Absolute 0.01 K/mm3 (0.00-0.031); Immature Granulocyte Percent A 0.3 % (0-0.5); Immature Platelet Fraction Pct 2.2 % (0.9-11.2); Lymphocytes Absolute Auto 0.42 K/mm3 (0.9-3.2); Lymphocytes Percent Auto 12.6 % (18.3-44.2); Mean Corpuscular HGB Conc 32.8 g/dl (32-36); Mean Corpuscular Volume 97.6 fl (80-100); Mean Platelet Volume 9.8 fl (7.4-10.4); Monocytes Absolute Auto 0.3 K/mm3 (0.1-0.6); Monocytes Percent Auto 10.2 % (2.6-8.5); Neutrophils Absolute Auto 2.6 K/mm3 (1.3-6.7); Neutrophils Percent Auto 76.6 % (45.5-73.1); Platelet Count Result 100 k/mm3 (150-375); Red Blood Count 2.47 M/mm3 (4.2-5.4); White Blood Count 3.3 K/mm3 (4.5-10.0)
[2024-06-03 07:57] LABS: Alanine Aminotransferase 11 U/L (6-35); Albumin Level 2.3 g/dL (3.5-5.1); Alkaline Phosphatase 110 U/L (38-126); Anion Gap 2 mmol/L (4-12); Aspartate Amino Transferase 30 U/L (14-36); Bilirubin,Total 2.1 mg/dL (0.2-1.3); Blood Urea Nitrogen 21 mg/dL (7-17); Calcium 7.4 mg/dL (8.4-10.2); Carbon Dioxide 25 mmol/L (22-30); Chloride 104 mmol/L (98-107); Estimated CRCL calculation 58 ml/min; Estimated Glomerular Filt Rate > 60; Glucose 199 mg/dL (65-110); Potassium 3.3 mmol/L (3.4-5.0); Sodium 131 mmol/L (137-145)
[2024-06-03 08:33] LABS: Platelet Estimate Adequate (Adequate)
[2024-06-03 08:34] LABS: Anisocytosis 1+; Polychromasia 1+; Schistocytes None Seen
[2024-06-03 08:36] VITALS: PULSE 82
[2024-06-03] MEDS: PROPRANOLOL HCL 20 MG TABLET PO ×2 (08:36→20:17)
[2024-06-03] MEDS: DEXTROSE 5%/0.9% SOD CHL 1,000 ML 50 ML IV CONT (08:36)
[2024-06-03] MEDS: ACETAMINOPHEN 500 MG TABLET 1000 MG PO ×2 (08:36→17:10)
[2024-06-03] MEDS: FERROUS SULFATE 325 MG TABLET DR PO ×2 (08:36→17:10)
[2024-06-03] MEDS: CALCIUM/VITAMIN D 500 MG/5 MCG (200 I.U.) TABLET PO ×2 (08:37→17:11)
[2024-06-03] MEDS: LACTULOSE 20 GM/30 ML UDC 15 GM PO ×2 (08:37→17:11)
[2024-06-03] MEDS: rifAXIMin 550 MG TABLET PO ×2 (08:37→20:11)
[2024-06-03] MEDS: MOXIFLOXACIN HCL 0.5% 3 ML OPHTH SOLN 1 DROP LEFT EYE ×2 (08:38→20:12)
[2024-06-03] MEDS: LIDOCAINE 5% PATCH 2 PATCH TOPICAL (08:38)
[2024-06-03] MEDS: KETOROLAC 0.5% OP SOLN 5 ML BOTTLE 1 DROP LEFT EYE ×3 (08:38→17:11)
[2024-06-03] MEDS: PANTOPRAZOLE SODIUM IV 40 MG VIAL IV PUSH (08:38)
[2024-06-03] MEDS: allopurinoL 100 MG TABLET PO (08:40)
--- NOTE | 2024-06-03 09:10 | P.PNOP_ITS ---
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 She was doing well until recently she has developed increasing pain swelling in her leg. She appears to potentially have a GI bleed. She also appears to have some ascites with potentially cirrhosis. This makes her healing more difficult. Will continue with conservative treatment at this time. The Xarelto has been stopped. Will follow along. Subjective Subjective Date/Time Seen: 06/03/24 09:10 Principal diagnosis: 17 days post bipolar right hip Review of Systems Musculoskeletal: Musculoskeletal: Reports arthralgias, Reports joint swelling, Reports muscle weakness and Reports stiffness Exam Narrative: Wound appears clean she can wiggle her toes but has pain with any motion. She is able to walk with a walker. Radiology Reports: Comments: Patient: Khadra Crook EXAMINATION: CT LE RT wo con DATE: 06/02/2024 12:33 INDICATION: Right lower limb hematoma. TECHNIQUE: Computed tomography (CT) of the right lower limb was performed without intravenous contrast. Automated exposure control and iterative reconstruction technique were employed. The dose-length product was 1271.31 mGy- cm. COMPARISON: CT abdomen and pelvis 05/31/2024, fluoroscopy 05/16/2024. FINDINGS: There is a moderate volume of ascites. There is a right inguinal hernia containing ascites. There is subcutaneous edema in the body wall and right thigh. There is a bipolar right hip hemiarthroplasty in near-anatomic alignment. There is a comminuted fracture of greater trochanter of proximal right femur. The main proximal fracture fragment demonstrates 6 mm distraction. 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 There is lumbar levocurvature and severe spondylosis. There is a subcutaneous hematoma lateral to the right hip measuring 6.5 x 3.4 x 18.5 cm. Skin jennie are noted. IMPRESSION: 1. Subcutaneous hematoma lateral to the right hip. 2. Comminuted fracture of greater trocha nter of proximal right femur. 3. Bipolar right hip hemiarthroplasty in near-anatomic alignment. 4. Mild right hip osteoarthritis. 5. Moderate volume of ascites. Reviewed, dictated and finalized at location A. Foot X-Ray 02/08/21 Hip X-Ray 06/17/20 Hip/Pelvis X-Ray 05/15/24 Hip MRI 06/24/20 Knee X-Ray 05/17/24 Knee MRI 11/08/21 Lumbar Spine X-Ray 06/17/20 Lumbar Spine MRI 06/24/20 Objective Data Vital Signs Vital Signs: Vital Signs - 24 hr 06/02/24 09:32 06/02/24 10:00 06/02/24 11:43 Temperature 99.5 F 98.2 F Pulse Rate 96 74 80 Respiratory Rate 18 18 Blood Pressure 149/67 H 125/44 L Pulse Oximetry 97 97 Oxygen Delivery 06/02/24 14:00 06/02/24 09:40 06/02/24 18:10 Temperature 99.9 F H 98.8 F Pulse Rate 80 88 Respiratory Rate 22 H 18 Blood Pressure 131/41 L 142/52 H Pulse Oximetry 98 97 Oxygen Delivery Room Air 06/02/24 19:51 06/02/24 19:47 06/02/24 20:00 Temperature 99.8 F H Pulse Rate 86 86 Respiratory Rate 22 H Blood Pressure 131/47 L Pulse Oximetry 99 Oxygen Delivery Room Air 06/03/24 05:27 06/03/24 08:36 Temperature 99.6 F Pulse Rate 82 82 Respiratory Rate 20 Blood Pressure 143/57 H Pulse Oximetry 93 Oxygen Delivery Intake/Output Intake/Output: Intake & Output 05/31/24 06/01/24 06/02/24 06/03/24 23:59 23:59 23:59 23:59 Intake Total 625 397 5889 Output Total 600 275 Balance 400 -60 1275 Meds/Results Medications: Active Medications Generic Name Dose Route Start Last Admin Trade Name Freq PRN Reason Stop Dose Admin Acetaminophen 1,000 mg 06/02/24 09:00 06/03/24 08:36 Acetaminophen 500 Mg Tablet PO 1,000 mg BID JOSE Administration Hydrocodone Bitart/Acetaminophen 1 tab 06/02/24 08:12 06/03/24 04:40 Hydrocodone/Acetaminophen (*Crx) 5-325 Mg Tablet PO 1 tab Q6H PRN Administration Pain Rated 7-10 Allopurinol 100 mg 06/03/24 09:00 06/03/24 08:40 Allopurinol 100 Mg Tablet PO 100 mg [id number] JOSE Administration Calcium Carbonate 500 mg 06/02/24 09:00 06/03/24 08:37 Calcium/Vitamin D 500 Mg/5 Mcg (200 I.U.) Tablet PO 500 mg BID JOSE Administration Dextrose 12.5 gm 06/01/24 20:32 Dextrose 50% 25 Gm/50 Ml Syringe IV PUSH PRN PRN Hypoglycemia Protocol Ferrous Sulfate 325 mg 06/02/24 09:00 06/03/24 08:36 Ferrous Sulfate [address] PO 325 mg BID JOSE Administration Glucagon 1 mg 06/01/24 20:32 Glucagon For Inj 1 Mg Vial IM PRN PRN Hypoglycemia Protocol Glucose 15 gm 06/01/24 20:32 Glucose Oral Gel 15 Gm Of Glucse In 37.5 Gm Tube PO PRN PRN Hypoglycemia Protocol Dextrose 1,000 mls @ 100 mls/hr 06/01/24 20:32 Dextrose 5% 1,000 Ml IVPB PRN PRN Hypoglycemia Protocol Dextrose/Sodium Chloride 1,000 mls @ 50 mls/hr 06/02/24 09:40 06/03/24 08:36 Dextrose 5% Sodium Chloride 0.9% IV CONT 50 mls/hr .Q20H JOSE Administration Insulin Aspart 3 - 6 units 06/02/24 00:00 06/03/24 05:39 Insulin Aspart (*Bkc) 100 Units/Ml SUB-Q Not Given Q6HR [facility] Protocol Ketorolac Tromethamine 1 drop 06/01/24 20:50 06/03/24 08:38 Ketorolac 0.5% Op Soln 5 Ml Bottle LEFT EYE 1 drop TID JOSE Administration Lactulose 15 gm 06/02/24 17:00 06/03/24 08:37 Lactulose 20 Gm/30 Ml Udc PO 15 gm BID JOSE Administration Lidocaine 2 patch 06/02/24 09:00 06/03/24 08:38 Lidocaine 5% Patch TOPICAL 2 patch DAILY JOSE Administration Morphine Sulfate 2 mg 06/01/24 20:22 06/03/24 08:44 Morphine Sulfate (*Crx) 2 Mg/Ml Inj IV PUSH 2 mg Q4H PRN Administration Pain Rated 7-10 Moxifloxacin HCl 1 drop 06/01/24 21:00 06/03/24 08:38 Moxifloxacin Hcl 0.5% 3 Ml Ophth Soln LEFT EYE 1 drop Q12H JOSE Administration Pantoprazole Sodium 40 mg 06/01/24 21:10 06/03/24 08:38 Pantoprazole Sodium Iv 40 Mg Vial IV PUSH 40 mg Q12HR JOSE Administration Polyethylene Glycol 17 gm 06/01/24 20:35 Polyethylene Glycol 3350 17 Gm Powd.Pack PO DAILY PRN Constipation Propranolol HCl 20 mg 06/01/24 21:00 06/03/24 08:36 Propranolol Hcl 20 Mg Tablet PO 20 mg Q12H JOSE Administration Rifaximin 550 mg 06/02/24 21:00 06/03/24 08:37 Rifaximin 550 Mg Tablet PO 550 mg Q12HR JOSE Administration Ropinirole HCl 0.25 mg 06/01/24 21:00 06/02/24 19:51 Ropinirole Hcl 0.25 Mg Tablet PO 0.25 mg HS JOSE Administration Senna/Docusate Sodium 2 tab 06/01/24 20:50 06/03/24 08:26 Senna/Docusate Sodium Tablet PO Not Given BID JOSE Sucralfate 1,000 mg 06/02/24 16:30 06/03/24 05:40 Sucralfate Susp 100 Mg/Ml 10 Ml Udc PO Not Given ACHS JOSE Tramadol HCl 25 mg 06/02/24 08:10 06/02/24 19:51 Tramadol Hcl (*Crx) 25 Mg Tablet PO 25 mg Q4H PRN Administration Pain Rated 4-6 Radiology Results: ITS Impressions Venous Doppler Study 06/02/24 10:48 IMPRESSION: 1. Deep vein thrombosis involving the right peroneal veins. ADDENDUM: 06/02/24 1058 I discussed this result with Latoya Hernandez. Chest X-Ray 06/02/24 11:21 IMPRESSION: 1. No acute cardiopulmonary disease. Lower Extremity CT 06/02/24 12:35 IMPRESSION: 1. Subcutaneous hematoma lateral to the right hip. 2. Comminuted fracture of greater trochanter of proximal right femur. 3. Bipolar right hip hemiarthroplasty in near-anatomic alignment. 4. Mild right hip osteoarthritis. 5. Moderate volume of ascites. Labs Labs: Laboratory Results - last 24 hr 06/02/24 06/02/24 06/02/24 03:57 09:35 10:04 WBC RBC Hgb Hct MCV MCH MCHC RDW Plt Count MPV Immature Gran % (Auto) Neut % (Auto) Lymph % (Auto) Sutter % (Auto) Eos % (Auto) Baso % (Auto) Lymph # (Auto) Sutter # (Auto) Eos # (Auto) Baso # (Auto) Abs Immat Gran (auto) Absolute Neuts (auto) Absolute Nucleated RBC Nucleated RBC % Platelet Estimate % Immature Plt Fraction Polychromasia Anisocytosis Ovalocytes Schistocytes Sodium Potassium Chloride Carbon Dioxide Anion Gap BUN Creatinine Estim Creat Clear Calc Estimated GFR Glucose POC Capillary Glucose Lactic Acid 1.9 Calcium Total Bilirubin AST ALT Alkaline Phosphatase Ammonia 28 C-Reactive Protein 3.6 H Total Protein Albumin Procalcitonin 0.1 Total T3 0.98 Hepatitis A IgM Ab Negative Hep Bs Antigen Negative Hep B Core IgM Ab Negative Hepatitis C Ab Screen Negative Influenza A (RT-PCR) Negative Influenza B (RT-PCR) Negative RSV (RT-PCR) Negative SARS-CoV-2 RNA (RT-PCR) Negative Group A Strep (PCR) Not detected 06/02/24 06/02/24 06/02/24 12:02 14:38 18:06 WBC 5.8 RBC 2.60 L Hgb 8.3 L Hct 25.5 L MCV 96.2 MCH 31.5 MCHC 32.8 RDW 22.4 H Plt Count 109 L MPV 10.2 Immature Gran % (Auto) 0.2 Neut % (Auto) 84.0 H Lymph % (Auto) 7.2 L Sutter % (Auto) 8.2 Eos % (Auto) 0.2 Baso % (Auto) 0.2 Lymph # (Auto) 0.42 L Sutter # (Auto) 0.5 Eos # (Auto) 0.0 Baso # (Auto) 0.0 Abs Immat Gran (auto) 0.01 Absolute Neuts (auto) 4.9 Absolute Nucleated RBC 0.000 Nucleated RBC % 0.0 Platelet Estimate Decreased % Immature Plt Fraction Polychromasia Anisocytosis 1+ Ovalocytes 1+ Schistocytes None seen Sodium Potassium Chloride Carbon Dioxide Anion Gap BUN Creatinine Estim Creat Clear Calc Estimated GFR Glucose POC Capillary Glucose 169 H 213 H Lactic Acid Calcium Total Bilirubin AST ALT Alkaline Phosphatase Ammonia C-Reactive Protein Total Protein Albumin Procalcitonin Total T3 Hepatitis A IgM Ab Hep Bs Antigen Hep B Core IgM Ab Hepatitis C Ab Screen Influenza A (RT-PCR) Influenza B (RT-PCR) RSV (RT-PCR) SARS-CoV-2 RNA (RT-PCR) Group A Strep (PCR) 06/02/24 06/03/24 06/03/24 22:30 00:01 05:30 WBC RBC Hgb 8.7 L Hct 27.0 L MCV MCH MCHC RDW Plt Count MPV Immature Gran % (Auto) Neut % (Auto) Lymph % (Auto) Sutter % (Auto) Eos % (Auto) Baso % (Auto) Lymph # (Auto) Sutter # (Auto) Eos # (Auto) Baso # (Auto) Abs Immat Gran (auto) Absolute Neuts (auto) Absolute Nucleated RBC Nucleated RBC % Platelet Estimate % Immature Plt Fraction Polychromasia Anisocytosis Ovalocytes Schistocytes Sodium Potassium Chloride Carbon Dioxide Anion Gap BUN Creatinine Estim Creat Clear Calc Estimated GFR Glucose POC Capillary Glucose 230 H 207 H Lactic Acid Calcium Total Bilirubin AST ALT Alkaline Phosphatase Ammonia C-Reactive Protein Total Protein Albumin Procalcitonin Total T3 Hepatitis A IgM Ab Hep Bs Antigen Hep B Core IgM Ab Hepatitis C Ab Screen Influenza A (RT-PCR) Influenza B (RT-PCR) RSV (RT-PCR) SARS-CoV-2 RNA (RT-PCR) Group A Strep (PCR) 06/03/24 07:38 WBC 3.3 L RBC 2.47 L Hgb 7.9 L Hct 24.1 L MCV 97.6 MCH 32.0 MCHC 32.8 RDW 23.0 H Plt Count 100 L MPV 9.8 Immature Gran % (Auto) 0.3 Neut % (Auto) 76.6 H Lymph % (Auto) 12.6 L Sutter % (Auto) 10.2 H Eos % (Auto) 0.0 Baso % (Auto) 0.3 Lymph # (Auto) 0.42 L Sutter # (Auto) 0.3 Eos # (Auto) 0.0 Baso # (Auto) 0.0 Abs Immat Gran (auto) 0.01 Absolute Neuts (auto) 2.6 Absolute Nucleated RBC 0.000 Nucleated RBC % 0.0 Platelet Estimate Adequate % Immature Plt Fraction 2.2 Polychromasia 1+ Anisocytosis 1+ Ovalocytes Schistocytes None seen Sodium 131 L Potassium 3.3 L Chloride 104 Carbon Dioxide 25 Anion Gap 2 L BUN 21 H Creatinine 0.70 Estim Creat Clear Calc 58 Estimated GFR > 60 Glucose 199 H POC Capillary Glucose Lactic Acid Calcium 7.4 L Total Bilirubin 2.1 H AST 30 ALT 11 Alkaline Phosphatase 110 Ammonia C-Reactive Protein Total Protein 5.0 L Albumin 2.3 L Procalcitonin Total T3 Hepatitis A IgM Ab Hep Bs Antigen Hep B Core IgM Ab Hepatitis C Ab Screen Influenza A (RT-PCR) Influenza B (RT-PCR) RSV (RT-PCR) SARS-CoV-2 RNA (RT-PCR) Group A Strep (PCR)
[2024-06-03] MEDS: DOXYCYCLINE HYCLATE 100 MG TABLET PO ×2 (09:43→17:10)
--- NOTE | 2024-06-03 10:30 | PM.IMPN ---
Progress Note: A&P Assessment and Plan (1) Symptomatic anemia: Code(s): D64.9 - Anemia, unspecified Status: Acute Assessment and Plan: History of anemia at baseline Received 2 units of blood at [place] She was noted to have dark tarry stool with blood on stool at [facility] History of internal hemorrhoids Patient was anemic postoperative as well requiring 2 units of blood on 05/18 and 05/19 Patient was on Xarelto for DVT prophylaxis postoperatively which has been held since 05/31/24 GI following Continue Protonix b.i.d. Continue NPO status SCDs for DVT prophylaxis Fibrinogen normal Continue ferrous sulfate Hemoglobin stable 8.6> 8.6> 8.2>8.3>8.7>7.9 since her last blood transfusion, vital signs are stable Reported shortness of breath, chest x-ray over at [facility] was negative for any acute findings. She is currently on room air. Likely secondary to her anemia. (2) Melena: Code(s): K92.1 - Melena Status: Acute Assessment and Plan: See above (3) Cirrhosis of liver with ascites: Code(s): K74.60 - Unspecified cirrhosis of liver; R18.8 - Other ascites Status: Acute Assessment and Plan: Abdomen/pelvis CT from 05/31/2024 showed moderate ascites with cirrhosis Will get hepatitis panel pending Total bili 2.1 Liver enzymes within normal limits Ammonia level normal (4) Diastolic dysfunction: Code(s): I51.89 - Other ill-defined heart diseases Status: Acute Assessment and Plan: Last echo reviewed from 02/27/2023 which showed a normal LV systolic function with an estimated EF of 65-70%, diastolic dysfunction noted, moderate aortic valve sclerosis moderate mitral and tricuspid valve regurgitation, mild pulmonary hypertension Bilateral lower extremity swelling Will get ultrasound Doppler today to rule out DVT (5) Lower extremity edema: Code(s): R60.0 - Localized edema Status: Acute Assessment and Plan: US doppler bilateral lower extremity ordered (6) Closed fracture of neck of right femur: Qualifiers: Encounter type: initial encounter Qualified Code(s): S72.001A - Fracture of unspecified part of neck of right femur, initial encounter for closed fracture Code(s): S72.001A - Fracture of unspecified part of neck of right femur, initial encounter for closed fracture Status: Acute Assessment and Plan: S/P right bipolar hip replacement with Dr. Balbuena on 05/16/24 Surgical incision with jennie, ecchymosis noted right thigh and lateral hip PT and OT ordered Recently at [place] for swing bed program up until yesterday Dr. Balbuena notified of change in status Continue pain control Will obtain wound culture and blood cultures today however white blood cell count normal, lactic acid within normal limits (7) Diabetes: Code(s): E11.9 - Type 2 diabetes mellitus without complications Status: Acute Assessment and Plan: Blood sugars ranging 147-173 Hgb A1C 5.2 Accu checks q.6 hour Moderate dose SSI ordered hypoglycemic protocol in place Currently NPO (8) Altered mental status: Code(s): R41.82 - Altered mental status, unspecified Status: Acute Assessment and Plan: Mentation improved today, she is alert and oriented x3 (9) Sore throat: Code(s): J02.9 - Acute pharyngitis, unspecified Status: Acute Assessment and Plan: Rapid strep negative Respiratory panel negative Low-grade temp resolved White blood cell count normal at 5.7, lactic acid 1.9 procalcitonin 0.1 Time Spent With Patient Time with patient: 25 - 35 minutes Subjective Date/time seen: 06/03/24 10:30 Interval history: Interval History: (Copy forward from my transfer summary at [facility]) Khadra Crook is a 84 year old female with a significant past medical history of anemia, arthritis, dyslipidemia, gout, hypertension, type 2 diabetes mellitus, liver cancer, former smoker who presented to [facility] for swing bed rehab program on 05/22/2024 from [facility] after having a right bipolar hip replacement done on 05/16/2024. patient originally presented to the hospital on 05/16/2024 after sustaining a mechanical fall at home. Patient apparently was coming in from letting her dog out to go the bathroom when she tripped over the door frame causing her to fall on her right side. She immediately had pain and EMS was called. She was brought to [facility] initially with Ortho consult for a right femoral neck fracture seen on x-ray. She went to the operating room that day and had a right bipolar hip replacement done with Dr. Balbuena. patient was seen by therapy who is recommending SNF placement. The only complication after surgery is that her hemoglobin dropped on 05/18 down to 6.8 requiring a unit of blood to be given. They repeated an H&H on 05/18/2024 requiring another unit of blood to be given. Her H&H was considered stable after those 2 units. She was then transferred to [facility] for the swing bed rehab program on 05/22/2024 in stable condition. Patient started working with therapy here at [facility] and had no complications up until 05/30/2024 when the patient started to become more confused with increased pain and started passing bright red blood per rectum. She was place on Xarelto for DVT prophylaxis immediately postop and was going to continue this per protocol after having a total hip replacement However this was held on the night of of 05/30/2024. hemoglobin went from 8.5 down to 7.7 that evening and then in the morning was still stable at 7.6. Patient was not symptomatic. Her vital signs were stable including her blood pressure. This morning we went ahead and checked her labs again which shown a further drop in hemoglobin of 5.7 requiring blood transfusion. With these concerns we decided that it was in our best interest to send her to [place] for GI consult. She was given 2 units of blood at [place] with the 2nd unit infusing en route to [place]. her hemoglobin in between blood transfusions was 6.7. I spoke with Dr. Negro, (GI) who accepts consult. I then spoke with Dr. Lou, (hospitalist) who accepts patient transfer to the hospital. Lastly, I called Dr. Balbuena (orthopedic surgeon) out of courtesy to update and let him know we held Xarelto and aspirin due to GI bleeding. Dr. Balbuena said that he will see her on Monday. Patient was transferred in stable condition via EMS. Subjective: Patient denies any fever, chills, nausea, vomiting, abdominal pain, chest pain, or shortness of breath. She states that she hurts all over and still having melena stools. Labs reviewed. Review of Systems Review of Systems: 12 systems were reviewed and are negative except for as per HPI. Constitutional: Constitutional: Reports as per HPI and Reports no additional constitutional complaints Eyes: Eyes: Reports as per HPI and Reports no additional eye complaints ENT: Reports system reviewed and no additional complaints, except as documented and Reports as per HPI Cardiovascular: Cardiovascular: Reports as per HPI and Reports no additional cardiovascular complaints Respiratory: Respiratory: Reports as per HPI and Reports no additional respiratory complaints Gastrointestinal: Gastrointestinal: Reports as per HPI and Reports no additional gastrointestinal complaints Genitourinary: Genitourinary: Reports no additional female genitourinary complaints and Reports as per HPI Musculoskeletal: Musculoskeletal: Reports no additional musculoskeletal complaints and Reports as per HPI Integumentary/Breasts: Skin/Breast: Reports system reviewed and no additional complaints, except as docu and Reports as per HPI Neurologic: Reports system reviewed and no additional complaints, except as documented and Reports as per HPI Psychiatric: Psychiatric: Reports no additional psychiatric complaints and Reports as per HPI Exam Narrative: General: In no acute distress, well nourished Cardiac: Normal S1 and S2. No murmur, gallops or friction rubs, peripheral pulses intact. Respiratory: Lungs clear to auscultation, no adventitious lung sounds, currently on room air Gastrointestinal: soft, non-distended, non-tender, normoactive bowel sounds. : voiding without difficulty, bebo urine Extremities: moves all extremities well, 1-2+ pitting edema bilateral lower extremities Skin: Surgical incision on right hip open the air with jennie, no redness noted, serous drainage noted on bandage. Neuro: Alert and oriented x3 Psych: interactive Objective Data Vital Signs Vital Signs: Vital Signs - 24 hr 06/02/24 11:43 06/02/24 14:00 06/02/24 18:10 Temperature 98.2 F 99.9 F H 98.8 F Pulse Rate 80 80 88 Respiratory Rate 18 22 H 18 Blood Pressure 125/44 L 131/41 L 142/52 H Pulse Oximetry 97 98 97 Oxygen Delivery 06/02/24 19:51 06/02/24 19:47 06/02/24 20:00 Temperature 99.8 F H Pulse Rate 86 86 Respiratory Rate 22 H Blood Pressure 131/47 L Pulse Oximetry 99 Oxygen Delivery Room Air 06/03/24 05:27 06/03/24 08:36 Temperature 99.6 F Pulse Rate 82 82 Respiratory Rate 20 Blood Pressure 143/57 H Pulse Oximetry 93 Oxygen Delivery Intake/Output Intake/Output: Intake & Output 05/31/24 06/01/24 06/02/24 06/03/24 23:59 23:59 23:59 23:59 Intake Total 671 523 4386 Output Total 600 275 Balance 400 -60 1275 Meds/Results Medications: Active Medications Generic Name Dose Route Start Last Admin Trade Name Freq PRN Reason Stop Dose Admin Acetaminophen 1,000 mg 06/02/24 09:00 06/03/24 08:36 Acetaminophen 500 Mg Tablet PO 1,000 mg BID JOSE Administration Hydrocodone Bitart/Acetaminophen 1 tab 06/02/24 08:12 06/03/24 04:40 Hydrocodone/Acetaminophen (*Crx) 5-325 Mg Tablet PO 1 tab Q6H PRN Administration Pain Rated 7-10 Allopurinol 100 mg 06/03/24 09:00 06/03/24 08:40 Allopurinol 100 Mg Tablet PO 100 mg [id number] JOSE Administration Calcium Carbonate 500 mg 06/02/24 09:00 06/03/24 08:37 Calcium/Vitamin D 500 Mg/5 Mcg (200 I.U.) Tablet PO 500 mg BID JOSE Administration Dextrose 12.5 gm 06/01/24 20:32 Dextrose 50% 25 Gm/50 Ml Syringe IV PUSH PRN PRN Hypoglycemia Protocol Doxycycline Hyclate 100 mg 06/03/24 06:00 06/03/24 09:43 Doxycycline Hyclate 100 Mg Tablet PO 100 mg Q12H JOSE Administration Ferrous Sulfate 325 mg 06/02/24 09:00 06/03/24 08:36 Ferrous Sulfate [address] PO 325 mg BID JOSE Administration Glucagon 1 mg 06/01/24 20:32 Glucagon For Inj 1 Mg Vial IM PRN PRN Hypoglycemia Protocol Glucose 15 gm 06/01/24 20:32 Glucose Oral Gel 15 Gm Of Glucse In 37.5 Gm Tube PO PRN PRN Hypoglycemia Protocol Dextrose 1,000 mls @ 100 mls/hr 06/01/24 20:32 Dextrose 5% 1,000 Ml IVPB PRN PRN Hypoglycemia Protocol Dextrose/Sodium Chloride 1,000 mls @ 50 mls/hr 06/02/24 09:40 06/03/24 08:36 Dextrose 5% Sodium Chloride 0.9% IV CONT 50 mls/hr .Q20H JOSE Administration Insulin Aspart 3 - 6 units 06/02/24 00:00 06/03/24 05:39 Insulin Aspart (*Bkc) 100 Units/Ml SUB-Q Not Given Q6HR JOSE Protocol Ketorolac Tromethamine 1 drop 06/01/24 20:50 06/03/24 08:38 Ketorolac 0.5% Op Soln 5 Ml Bottle LEFT EYE 1 drop TID JOSE Administration Lactulose 15 gm 06/02/24 17:00 06/03/24 08:37 Lactulose 20 Gm/30 Ml Udc PO 15 gm BID JOSE Administration Lidocaine 2 patch 06/02/24 09:00 06/03/24 08:38 Lidocaine 5% Patch TOPICAL 2 patch DAILY JOSE Administration Morphine Sulfate 2 mg 06/01/24 20:22 06/03/24 08:44 Morphine Sulfate (*Crx) 2 Mg/Ml Inj IV PUSH 2 mg Q4H PRN Administration Pain Rated 7-10 Moxifloxacin HCl 1 drop 06/01/24 21:00 06/03/24 08:38 Moxifloxacin Hcl 0.5% 3 Ml Ophth Soln LEFT EYE 1 drop Q12H JOSE Administration Pantoprazole Sodium 40 mg 06/01/24 21:10 06/03/24 08:38 Pantoprazole Sodium Iv 40 Mg Vial IV PUSH 40 mg Q12HR JOSE Administration Polyethylene Glycol 17 gm 06/01/24 20:35 Polyethylene Glycol 3350 17 Gm Powd.Pack PO DAILY PRN Constipation Propranolol HCl 20 mg 06/01/24 21:00 06/03/24 08:36 Propranolol Hcl 20 Mg Tablet PO 20 mg Q12H JOSE Administration Rifaximin 550 mg 06/02/24 21:00 06/03/24 08:37 Rifaximin 550 Mg Tablet PO 550 mg Q12HR JOSE Administration Ropinirole HCl 0.25 mg 06/01/24 21:00 06/02/24 19:51 Ropinirole Hcl 0.25 Mg Tablet PO 0.25 mg HS PENDING SALE TO [facility] Administration Senna/Docusate Sodium 2 tab 06/01/24 20:50 06/03/24 08:26 Senna/Docusate Sodium Tablet PO Not Given BID PENDING SALE TO [facility] Sucralfate 1,000 mg 06/02/24 16:30 06/03/24 05:40 Sucralfate Susp 100 Mg/Ml 10 Ml Udc PO Not Given ACHS PENDING SALE TO [facility] Tramadol HCl 25 mg 06/02/24 08:10 06/02/24 19:51 Tramadol Hcl (*Crx) 25 Mg Tablet PO 25 mg Q4H PRN Administration Pain Rated 4-6 Radiology Results: ITS Impressions Venous Doppler Study 06/02/24 10:48 IMPRESSION: 1. Deep vein thrombosis involving the right peroneal veins. ADDENDUM: 06/02/24 1058 I discussed this result with Latoya Hernandez. Chest X-Ray 06/02/24 11:21 IMPRESSION: 1. No acute cardiopulmonary disease. Lower Extremity CT 06/02/24 12:35 IMPRESSION: 1. Subcutaneous hematoma lateral to the right hip. 2. Comminuted fracture of greater trochanter of proximal right femur. 3. Bipolar right hip hemiarthroplasty in near-anatomic alignment. 4. Mild right hip osteoarthritis. 5. Moderate volume of ascites. Labs Labs: Laboratory Results - last 24 hr 06/02/24 06/02/24 06/02/24 03:57 09:35 10:04 WBC RBC Hgb Hct MCV MCH MCHC RDW Plt Count MPV Immature Gran % (Auto) Neut % (Auto) Lymph % (Auto) [place] % (Auto) Eos % (Auto) Baso % (Auto) Lymph # (Auto) [place] # (Auto) Eos # (Auto) Baso # (Auto) Abs Immat Gran (auto) Absolute Neuts (auto) Absolute Nucleated RBC Nucleated RBC % Platelet Estimate % Immature Plt Fraction Polychromasia Anisocytosis Ovalocytes Schistocytes Sodium Potassium Chloride Carbon Dioxide Anion Gap BUN Creatinine Estim Creat Clear Calc Estimated GFR Glucose POC Capillary Glucose Calcium Total Bilirubin AST ALT Alkaline Phosphatase C-Reactive Protein 3.6 H Total Protein Albumin Procalcitonin 0.1 Influenza A (RT-PCR) Negative Influenza B (RT-PCR) Negative RSV (RT-PCR) Negative SARS-CoV-2 RNA (RT-PCR) Negative Group A Strep (PCR) Not detected 06/02/24 06/02/24 06/02/24 12:02 14:38 18:06 WBC 5.8 RBC 2.60 L Hgb 8.3 L Hct 25.5 L MCV 96.2 MCH 31.5 MCHC 32.8 RDW 22.4 H Plt Count 109 L MPV 10.2 Immature Gran % (Auto) 0.2 Neut % (Auto) 84.0 H Lymph % (Auto) 7.2 L [place] % (Auto) 8.2 Eos % (Auto) 0.2 Baso % (Auto) 0.2 Lymph # (Auto) 0.42 L [place] # (Auto) 0.5 Eos # (Auto) 0.0 Baso # (Auto) 0.0 Abs Immat Gran (auto) 0.01 Absolute Neuts (auto) 4.9 Absolute Nucleated RBC 0.000 Nucleated RBC % 0.0 Platelet Estimate Decreased % Immature Plt Fraction Polychromasia Anisocytosis 1+ Ovalocytes 1+ Schistocytes None seen Sodium Potassium Chloride Carbon Dioxide Anion Gap BUN Creatinine Estim Creat Clear Calc Estimated GFR Glucose POC Capillary Glucose 169 H 213 H Calcium Total Bilirubin AST ALT Alkaline Phosphatase C-Reactive Protein Total Protein Albumin Procalcitonin Influenza A (RT-PCR) Influenza B (RT-PCR) RSV (RT-PCR) SARS-CoV-2 RNA (RT-PCR) Group A Strep (PCR) 06/02/24 06/03/24 06/03/24 22:30 00:01 05:30 WBC RBC Hgb 8.7 L Hct 27.0 L MCV MCH MCHC RDW Plt Count MPV Immature Gran % (Auto) Neut % (Auto) Lymph % (Auto) [place] % (Auto) Eos % (Auto) Baso % (Auto) Lymph # (Auto) [place] # (Auto) Eos # (Auto) Baso # (Auto) Abs Immat Gran (auto) Absolute Neuts (auto) Absolute Nucleated RBC Nucleated RBC % Platelet Estimate % Immature Plt Fraction Polychromasia Anisocytosis Ovalocytes Schistocytes Sodium Potassium Chloride Carbon Dioxide Anion Gap BUN Creatinine Estim Creat Clear Calc Estimated GFR Glucose POC Capillary Glucose 230 H 207 H Calcium Total Bilirubin AST ALT Alkaline Phosphatase C-Reactive Protein Total Protein Albumin Procalcitonin Influenza A (RT-PCR) Influenza B (RT-PCR) RSV (RT-PCR) SARS-CoV-2 RNA (RT-PCR) Group A Strep (PCR) 06/03/24 07:38 WBC 3.3 L RBC 2.47 L Hgb 7.9 L Hct 24.1 L MCV 97.6 MCH 32.0 MCHC 32.8 RDW 23.0 H Plt Count 100 L MPV 9.8 Immature Gran % (Auto) 0.3 Neut % (Auto) 76.6 H Lymph % (Auto) 12.6 L [place] % (Auto) 10.2 H Eos % (Auto) 0.0 Baso % (Auto) 0.3 Lymph # (Auto) 0.42 L [place] # (Auto) 0.3 Eos # (Auto) 0.0 Baso # (Auto) 0.0 Abs Immat Gran (auto) 0.01 Absolute Neuts (auto) 2.6 Absolute Nucleated RBC 0.000 Nucleated RBC % 0.0 Platelet Estimate Adequate % Immature Plt Fraction 2.2 Polychromasia 1+ Anisocytosis 1+ Ovalocytes Schistocytes None seen Sodium 131 L Potassium 3.3 L Chloride 104 Carbon Dioxide 25 Anion Gap 2 L BUN 21 H Creatinine 0.70 Estim Creat Clear Calc 58 Estimated GFR > 60 Glucose 199 H POC Capillary Glucose Calcium 7.4 L Total Bilirubin 2.1 H AST 30 ALT 11 Alkaline Phosphatase 110 C-Reactive Protein Total Protein 5.0 L Albumin 2.3 L Procalcitonin Influenza A (RT-PCR) Influenza B (RT-PCR) RSV (RT-PCR) SARS-CoV-2 RNA (RT-PCR) Group A Strep (PCR) Quality VTE Prophylaxis VTE prophylaxis: mechanical ordered
[2024-06-03 12:04] VITALS: BMI 29.2
[2024-06-03 12:06] LABS: Glucose Point of Care 181 mg/dl (65-105)
[2024-06-03] MEDS: SUCRALFATE SUSP 100 MG/ML 10 ML UDC 1000 MG PO ×2 (12:14→17:09)
[2024-06-03 14:00] VITALS: BP 129/49; PULSE 69; RESP 14; TEMP 36.4; O2SAT 98
--- NOTE | 2024-06-03 14:12 | PCOTNOTE ---
Spoke with hospitalist, Tila Major, who confirmed pt. to be weight bearing as tolerated on R LE
[2024-06-03 15:01] LABS: Hemoglobin 8.2 g/dL (12.0-15.0)
--- NOTE | 2024-06-03 18:05 | WPDGIPROGNO ---
Progress Note: A&P Assessment and Plan (1) Cirrhosis of liver with ascites: Code(s): K74.60 - Unspecified cirrhosis of liver; R18.8 - Other ascites Status: Acute Assessment and Plan: This patient was diagnosed with cirrhosis in 2017 when she was found to have hepatocellular carcinoma, which was treated locally. Since then, she has been followed at [facility]. She was admitted with a severe drop in hematocrit following right hip surgery, which was complicated by a large hematoma. Therefore, the presumed source of her drop in hematocrit is the hematoma itself. However, according to the family, there were some episodes of black tarry stools, although this morning her stools are normal in color. Other important issues include: Deep venous thrombosis: Yesterday's Doppler sonogram of her lower extremities revealed deep venous thrombosis. Given the recent bleeding in her right hip postoperatively, anticoagulation is currently contraindicated. Therefore, an inferior vena cava filter should be considered soon. Moderate to severe ascites: Her current MELD 3.0 score of 21 indicates moderate to severe decompensation. A large-volume paracentesis with cell count will be ordered for tomorrow. Her kidney function is currently stable, so we will initiate cautious diuretic therapy after paracentesis and replace albumin 8-10 grams per liter drained post-procedure. Mental status changes: According to the family, these changes were triggered by the ingestion of gabapentin. However, hepatic encephalopathy is a clinical diagnosis and, in her case, is multifactorial. Therefore, spontaneous bacterial peritonitis needs to be ruled out by paracentesis. Will continue current management with latulose and rifaximin. (2) Altered mental status: Code(s): R41.82 - Altered mental status, unspecified Status: Acute Subjective Date/time seen: 06/03/24 18:05 Interval history: The patient is much more oriented than yesterday, according to her relatives. She is able to answer questions and cooperate. She complains of right hip pain and left lower quadrant discomfort/ pain. There is no fever. She had a regular, pasty brown bowel movement this morning. Review of Systems Review of Systems: All systems reviewed & are unremarkable except as noted in HPI and below Exam Narrative: General: In no acute distress, well nourished Cardiac: Normal S1 and S2. No murmur, gallops or friction rubs, peripheral pulses intact. Respiratory: Lungs clear to auscultation, no adventitious lung sounds, currently on room air Gastrointestinal: soft, non-distended, non-tender, normoactive bowel sounds. : voiding without difficulty, bebo urine Extremities: moves all extremities well, 1-2+ pitting edema bilateral lower extremities Skin: Surgical incision on right hip open the air with jennie, no redness noted, serous drainage noted on bandage. Neuro: Alert and oriented x3 Psych: interactive Objective Data Vital Signs Vital Signs: Vital Signs - 24 hr 06/02/24 18:10 06/02/24 19:51 06/02/24 19:47 Temperature 98.8 F 99.8 F H Pulse Rate 88 86 86 Respiratory Rate 18 22 H Blood Pressure 142/52 H 131/47 L Pulse Oximetry 97 99 Oxygen Delivery 06/02/24 20:00 06/03/24 05:27 06/03/24 08:36 Temperature 99.6 F Pulse Rate 82 82 Respiratory Rate 20 Blood Pressure 143/57 H Pulse Oximetry 93 Oxygen Delivery Room Air 06/03/24 08:00 06/03/24 13:10 06/03/24 14:00 Temperature 97.6 F Pulse Rate 69 Respiratory Rate 14 Blood Pressure 129/49 L Pulse Oximetry 98 Oxygen Delivery Room Air Room Air Intake/Output Intake/Output: Intake & Output 05/31/24 06/01/24 06/02/24 06/03/24 23:59 23:59 23:59 23:59 Intake Total 629 647 0354 Output Total 600 275 Balance 400 -60 1275 Meds/Results Medications: Active Medications Generic Name Dose Route Start Last Admin Trade Name Freq PRN Reason Stop Dose Admin Acetaminophen 1,000 mg 06/02/24 09:00 06/03/24 17:10 Acetaminophen 500 Mg Tablet PO 1,000 mg BID JOSE Administration Hydrocodone Bitart/Acetaminophen 1 tab 06/02/24 08:12 06/03/24 12:12 Hydrocodone/Acetaminophen (*Crx) 5-325 Mg Tablet PO 1 tab Q6H PRN Administration Pain Rated 7-10 Allopurinol 100 mg 06/03/24 09:00 06/03/24 08:40 Allopurinol 100 Mg Tablet PO 100 mg [email or web address] JOSE Administration Calcium Carbonate 500 mg 06/02/24 09:00 06/03/24 17:11 Calcium/Vitamin D 500 Mg/5 Mcg (200 I.U.) Tablet PO 500 mg BID JOSE Administration Dextrose 12.5 gm 06/01/24 20:32 Dextrose 50% 25 Gm/50 Ml Syringe IV PUSH PRN PRN Hypoglycemia Protocol Doxycycline Hyclate 100 mg 06/03/24 06:00 06/03/24 17:10 Doxycycline Hyclate 100 Mg Tablet PO 100 mg Q12H JOSE Administration Ferrous Sulfate 325 mg 06/02/24 09:00 06/03/24 17:10 Ferrous Sulfate [address] PO 325 mg BID JOSE Administration Glucagon 1 mg 06/01/24 20:32 Glucagon For Inj 1 Mg Vial IM PRN PRN Hypoglycemia Protocol Glucose 15 gm 06/01/24 20:32 Glucose Oral Gel 15 Gm Of Glucse In 37.5 Gm Tube PO PRN PRN Hypoglycemia Protocol Dextrose 1,000 mls @ 100 mls/hr 06/01/24 20:32 Dextrose 5% 1,000 Ml IVPB PRN PRN Hypoglycemia Protocol Dextrose/Sodium Chloride 1,000 mls @ 50 mls/hr 06/02/24 09:40 06/03/24 08:36 Dextrose 5% Sodium Chloride 0.9% IV CONT 50 mls/hr .Q20H JOSE Administration Insulin Aspart 3 - 6 units 06/02/24 00:00 06/03/24 12:09 Insulin Aspart (*Bkc) 100 Units/Ml SUB-Q Not Given Q6HR [facility] Protocol Ketorolac Tromethamine 1 drop 06/01/24 20:50 06/03/24 17:11 Ketorolac 0.5% Op Soln 5 Ml Bottle LEFT EYE 1 drop TID JOSE Administration Lactulose 15 gm 06/02/24 17:00 06/03/24 17:11 Lactulose 20 Gm/30 Ml Udc PO 15 gm BID JOSE Administration Lidocaine 2 patch 06/02/24 09:00 06/03/24 08:38 Lidocaine 5% Patch TOPICAL 2 patch DAILY JOSE Administration Morphine Sulfate 2 mg 06/01/24 20:22 06/03/24 08:44 Morphine Sulfate (*Crx) 2 Mg/Ml Inj IV PUSH 2 mg Q4H PRN Administration Pain Rated 7-10 Moxifloxacin HCl 1 drop 06/01/24 21:00 06/03/24 08:38 Moxifloxacin Hcl 0.5% 3 Ml Ophth Soln LEFT EYE 1 drop Q12H JOSE Administration Pantoprazole Sodium 40 mg 06/01/24 21:10 06/03/24 08:38 Pantoprazole Sodium Iv 40 Mg Vial IV PUSH 40 mg Q12HR JOSE Administration Polyethylene Glycol 17 gm 06/01/24 20:35 Polyethylene Glycol 3350 17 Gm Powd.Pack PO DAILY PRN Constipation Propranolol HCl 20 mg 06/01/24 21:00 06/03/24 08:36 Propranolol Hcl 20 Mg Tablet PO 20 mg Q12H JOSE Administration Rifaximin 550 mg 06/02/24 21:00 06/03/24 08:37 Rifaximin 550 Mg Tablet PO 550 mg Q12HR JOSE Administration Ropinirole HCl 0.25 mg 06/01/24 21:00 06/02/24 19:51 Ropinirole Hcl 0.25 Mg Tablet PO 0.25 mg HS JOSE Administration Senna/Docusate Sodium 2 tab 06/01/24 20:50 06/03/24 17:10 Senna/Docusate Sodium Tablet PO Not Given BID JOSE Sucralfate 1,000 mg 06/02/24 16:30 06/03/24 17:09 Sucralfate Susp 100 Mg/Ml 10 Ml Udc PO 1,000 mg ACHS JOSE Administration Tramadol HCl 25 mg 06/02/24 08:10 06/02/24 19:51 Tramadol Hcl (*Crx) 25 Mg Tablet PO 25 mg Q4H PRN Administration Pain Rated 4-6 Radiology Results: ITS Impressions Venous Doppler Study 06/02/24 10:48 IMPRESSION: 1. Deep vein thrombosis involving the right peroneal veins. ADDENDUM: 06/02/24 1058 I discussed this result with Latoya Hernandez. Chest X-Ray 06/02/24 11:21 IMPRESSION: 1. No acute cardiopulmonary disease. Lower Extremity CT 06/02/24 12:35 IMPRESSION: 1. Subcutaneous hematoma lateral to the right hip. 2. Comminuted fracture of greater trochanter of proximal right femur. 3. Bipolar right hip hemiarthroplasty in near-anatomic alignment. 4. Mild right hip osteoarthritis. 5. Moderate volume of ascites. Labs Labs: Laboratory Results - last 24 hr 06/02/24 06/02/24 06/03/24 18:06 22:30 00:01 WBC RBC Hgb 8.7 L Hct 27.0 L MCV MCH MCHC RDW Plt Count MPV Immature Gran % (Auto) Neut % (Auto) Lymph % (Auto) [place] % (Auto) Eos % (Auto) Baso % (Auto) Lymph # (Auto) [place] # (Auto) Eos # (Auto) Baso # (Auto) Abs Immat Gran (auto) Absolute Neuts (auto) Absolute Nucleated RBC Nucleated RBC % Platelet Estimate % Immature Plt Fraction Polychromasia Anisocytosis Schistocytes Sodium Potassium Chloride Carbon Dioxide Anion Gap BUN Creatinine Estim Creat Clear Calc Estimated GFR Glucose POC Capillary Glucose 213 H 230 H Calcium Total Bilirubin AST ALT Alkaline Phosphatase Total Protein Albumin 06/03/24 06/03/24 06/03/24 05:30 07:38 12:01 WBC 3.3 L RBC 2.47 L Hgb 7.9 L Hct 24.1 L MCV 97.6 MCH 32.0 MCHC 32.8 RDW 23.0 H Plt Count 100 L MPV 9.8 Immature Gran % (Auto) 0.3 Neut % (Auto) 76.6 H Lymph % (Auto) 12.6 L [place] % (Auto) 10.2 H Eos % (Auto) 0.0 Baso % (Auto) 0.3 Lymph # (Auto) 0.42 L [place] # (Auto) 0.3 Eos # (Auto) 0.0 Baso # (Auto) 0.0 Abs Immat Gran (auto) 0.01 Absolute Neuts (auto) 2.6 Absolute Nucleated RBC 0.000 Nucleated RBC % 0.0 Platelet Estimate Adequate % Immature Plt Fraction 2.2 Polychromasia 1+ Anisocytosis 1+ Schistocytes None seen Sodium 131 L Potassium 3.3 L Chloride 104 Carbon Dioxide 25 Anion Gap 2 L BUN 21 H Creatinine 0.70 Estim Creat Clear Calc 58 Estimated GFR > 60 Glucose 199 H POC Capillary Glucose 207 H 181 H Calcium 7.4 L Total Bilirubin 2.1 H AST 30 ALT 11 Alkaline Phosphatase 110 Total Protein 5.0 L Albumin 2.3 L 06/03/24 14:55 WBC RBC Hgb 8.2 L Hct 26.0 L MCV MCH MCHC RDW Plt Count MPV Immature Gran % (Auto) Neut % (Auto) Lymph % (Auto) [place] % (Auto) Eos % (Auto) Baso % (Auto) Lymph # (Auto) [place] # (Auto) Eos # (Auto) Baso # (Auto) Abs Immat Gran (auto) Absolute Neuts (auto) Absolute Nucleated RBC Nucleated RBC % Platelet Estimate % Immature Plt Fraction Polychromasia Anisocytosis Schistocytes Sodium Potassium Chloride Carbon Dioxide Anion Gap BUN Creatinine Estim Creat Clear Calc Estimated GFR Glucose POC Capillary Glucose Calcium Total Bilirubin AST ALT Alkaline Phosphatase Total Protein Albumin
[2024-06-03 18:06] LABS: Glucose Point of Care 160 mg/dl (65-105)
[2024-06-03] MEDS: rOPINIRole HCL 0.25 MG TABLET PO (20:11)
[2024-06-03 20:17] VITALS: PULSE 76
[2024-06-03 20:18] VITALS: BP 139/52; PULSE 75; RESP 16; TEMP 36.7; O2SAT 100
[2024-06-03 23:51] LABS: Glucose Point of Care 190 mg/dl (65-105)
[2024-06-04 04:25] VITALS: BP 151/51; PULSE 78; RESP 16; TEMP 37.1; O2SAT 97
[2024-06-04] MEDS: DOXYCYCLINE HYCLATE 100 MG TABLET PO (05:35)
[2024-06-04] MEDS: DEXTROSE 5%/0.9% SOD CHL 1,000 ML 50 ML IV CONT (05:35)
[2024-06-04] MEDS: HYDROcodone/acetaminophen (*CRX) 5-325 MG TABLET 1 TAB PO ×3 (05:37→20:25)
[2024-06-04 05:43] LABS: Basophils Percent Auto 0.3 % (0.2-1.2); Eosinophils Absolute Auto 0.1 K/mm3 (0-0.3); Eosinophils Percent Auto 1.9 % (0-4.4); Hematocrit 26.3 % (37.0-47.0); Hemoglobin 8.4 g/dL (12.0-15.0); Immature Granulocyte Absolute 0.01 K/mm3 (0.00-0.031); Immature Granulocyte Percent A 0.3 % (0-0.5); Lymphocytes Absolute Auto 0.52 K/mm3 (0.9-3.2); Mean Corpuscular HGB Conc 31.9 g/dl (32-36); Mean Corpuscular Hemoglobin 32.2 pg (26-34); Mean Corpuscular Volume 100.8 fl (80-100); Mean Platelet Volume 10.2 fl (7.4-10.4); Monocytes Absolute Auto 0.4 K/mm3 (0.1-0.6); Monocytes Percent Auto 12.3 % (2.6-8.5); Neutrophils Absolute Auto 2.2 K/mm3 (1.3-6.7); Neutrophils Percent Auto 69.2 % (45.5-73.1); Platelet Count Result 104 k/mm3 (150-375); Red Blood Count 2.61 M/mm3 (4.2-5.4); Red Cell Distribution Width 23.5 % (11.5-14.5); White Blood Count 3.2 K/mm3 (4.5-10.0)
[2024-06-04 05:54] LABS: Alanine Aminotransferase 12 U/L (6-35); Albumin Level 2.4 g/dL (3.5-5.1); Alkaline Phosphatase 118 U/L (38-126); Anion Gap 0 mmol/L (4-12); Aspartate Amino Transferase 36 U/L (14-36); Bilirubin,Total 1.8 mg/dL (0.2-1.3); Blood Urea Nitrogen 20 mg/dL (7-17); Calcium 7.5 mg/dL (8.4-10.2); Carbon Dioxide 26 mmol/L (22-30); Chloride 105 mmol/L (98-107); Estimated CRCL calculation 68 ml/min; Estimated Glomerular Filt Rate > 60; Glucose 177 mg/dL (65-110); Potassium 3.3 mmol/L (3.4-5.0); Sodium 131 mmol/L (137-145)
[2024-06-04 06:31] LABS: Glucose Point of Care 190 mg/dl (65-105)
[2024-06-04 06:31] LABS: Anisocytosis 2+; Platelet Estimate Decreased (Adequate); Polychromasia 1+; Schistocytes None Seen
[2024-06-04 06:46] LABS: INR 1.4; Prothrombin Time 17.8 Seconds (11.1-14.7)
[2024-06-04 06:47] LABS: Partial Thromboplastin Time 39.4 Seconds (22.3-36.8)
--- NOTE | 2024-06-04 06:49 | P.PNIM_ITS ---
Progress Note: A&P Assessment and Plan (1) Altered mental status: Code(s): R41.82 - Altered mental status, unspecified Status: Acute Assessment and Plan: * Mentation improved today, she is alert and oriented x3 (2) Bacteremia: Code(s): R78.81 - Bacteremia Status: Acute Assessment and Plan: - blood cultures drawn on 06/02: preliminary- gram positive cocci - suspected source: - Afebrile, without leukocytosis - Lactic acid WNL - CXR: No acute cardiopulmonary disease - CT lower extremity 1. Subcutaneous hematoma lateral to the right hip. 2. Comminuted fracture of greater trochanter of proximal right femur. 3. Bipolar right hip hemiarthroplasty in near-anatomic alignment. 4. Mild right hip osteoarthritis. (3) Symptomatic anemia: Code(s): D64.9 - Anemia, unspecified Status: Acute Assessment and Plan: History of anemia at baseline Patient was anemic postoperative as well requiring 2 units of blood on 05/18 and 05/19. Afterward H/H was considered stable and transferred to [place] for rehab. Received 2 units of blood at [place] and transferred back to [place] for further evaluation. * She was noted to have dark tarry stool with blood at [facility]. History of internal hemorrhoids. * Patient was on Xarelto for DVT prophylaxis postoperatively which has been held since 05/31/24 2/2 anemia * Reported shortness of breath, chest x-ray over at [facility] was negative for any acute findings. She is currently on room air. Likely secondary to her anemia. * Fibrinogen normal * Hemoglobin stable 8.6> 8.6> 8.2>8.3>8.7>7.9>8.4 since her last blood transfusion, vital signs are stable * SCDs for DVT prophylaxis * Continue Protonix b.i.d. * Continue ferrous sulfate * Continue NPO status * GI consulted Presumed source is the postop hematoma. Per family, there were some episodes of black tarry stools, although this morning her stools are normal in color. Monitor. (4) Melena: Code(s): K92.1 - Melena Status: Acute Assessment and Plan: See above (5) Cirrhosis of liver with ascites: Code(s): K74.60 - Unspecified cirrhosis of liver; R18.8 - Other ascites Status: Acute Assessment and Plan: * Abdomen/pelvis CT from 05/31/2024 showed moderate ascites with cirrhosis * Hepatitis panel negative * Total bili 2.1 * Liver enzymes within normal limits * Ammonia level normal * GI consulted MELD 3.0 score of 21 indicates moderate to severe decompensation. Plan for a large-volume paracentesis with cell count on 06/04. Kidney function is stable, will initiate diuretic therapy after paracentesis and replace albumin 8-10 g/liter drained post-procedure. (6) DVT (deep venous thrombosis): Code(s): I82.409 - Acute embolism and thrombosis of unspecified deep veins of unspecified lower extremity Status: Acute Assessment and Plan: * US doppler bilateral lower extremity: Deep vein thrombosis involving the right peroneal veins. * Given the recent postop bleeding in her right hip and melena, anticoagulation is currently contraindicated. Therefore, an inferior vena cava filter should be considered soon. (7) Closed fracture of neck of right femur: Qualifiers: Encounter type: initial encounter Qualified Code(s): S72.001A - Fracture of unspecified part of neck of right femur, initial encounter for closed fracture Code(s): S72.001A - Fracture of unspecified part of neck of right femur, initial encounter for closed fracture Status: Acute Assessment and Plan: * S/P right bipolar hip replacement with Dr. Balbuena on 05/16/24 * Surgical incision with jennie, ecchymosis noted right thigh and lateral hip * PT and OT ordered * Recently at [place] for swing bed program up until yesterday 2/2 severe anemia and concern for bleed * Dr. Balbuena notified of change in status * Continue pain control * CT lower extremity 1. Subcutaneous hematoma lateral to the right hip. 2. Comminuted fracture of greater trochanter of proximal right femur. 3. Bipolar right hip hemiarthroplasty in near-anatomic alignment. 4. Mild right hip osteoarthritis. (8) Diabetes: Code(s): E11.9 - Type 2 diabetes mellitus without complications Status: Acute Assessment and Plan: * Blood sugars ranging 147-173 * Hgb A1C 5.2 * Accu checks q.6 hour * Moderate dose SSI ordered * hypoglycemic protocol in place * Currently NPO (9) Diastolic dysfunction: Code(s): I51.89 - Other ill-defined heart diseases Status: Acute Assessment and Plan: * Last echo reviewed from 02/27/2023 which showed a normal LV systolic function with an estimated EF of 65-70%, diastolic dysfunction noted, moderate aortic valve sclerosis moderate mitral and tricuspid valve regurgitation, mild pulmonary hypertension * Bilateral lower extremity swelling * US doppler bilateral lower extremity: Deep vein thrombosis involving the right peroneal veins. See plan above for DVT #5 (10) Sore throat: Code(s): J02.9 - Acute pharyngitis, unspecified Status: Acute Assessment and Plan: * Rapid strep negative * Respiratory panel negative * Low-grade temp resolved * White blood cell count normal at 5.7, lactic acid 1.9 * procalcitonin 0.1 Subjective Date/time seen: 06/04/24 06:49 Review of Systems Review of Systems: 12 systems were reviewed and are negativ e except for as per HPI. Exam Narrative: AF General: well nourished, well-developed female in no acute respiratory distress who is nontoxic appearing, lying semi recumbent in bed. HEENT: Normocephalic. Atraumatic. Pupils equal round reactive to light. Extraocular movement intact. Sclera clear and anicteric. Nares patent. No oral lesions. Moist mucous membranes. Tongue is midline. Palate justine symmetrically. No facial asymmetry. Neck: Neck was supple. No dominant adenopathy, thyromegaly or masses. 2+ carotid upstrokes without bruits. Chest: Lungs are clear to auscultation bilaterlly. No wheezes or crackles. CV: Heart was regular rate and rhythm. S1-S2. No murmurs, gallops, or rubs. Abd: Abdomen was soft. Nontender. Nondistended. Postive bowel sounds. No organomegaly or masses. Ext: No clubbing, cyanosis, or edema. 2+ DP pulses bilaterally. Neuro: Patient is alert and oriented x4. Strenth is 5/5 in both upper and lower extremities. Cranial nerves 2-12 are intact. Speech is clear. Psych: Normal nood and affect. Patient is pleasant and cooperative. Skin: Warm and dry. No rashes noted. Objective Data Vital Signs Vital Signs: Vital Signs - 24 hr 06/03/24 08:36 06/03/24 08:00 06/03/24 13:10 Temperature Pulse Rate 82 Respiratory Rate Blood Pressure Pulse Oximetry Oxygen Delivery Room Air Room Air 06/03/24 14:00 06/03/24 20:17 06/03/24 20:18 Temperature 97.6 F 98.1 F Pulse Rate 69 76 75 Respiratory Rate 14 16 Blood Pressure 129/49 L 139/52 L Pulse Oximetry 98 100 Oxygen Delivery 06/03/24 20:00 06/04/24 04:25 Temperature 98.8 F Pulse Rate 78 Respiratory Rate 16 Blood Pressure 151/51 H Pulse Oximetry 97 Oxygen Delivery Room Air Intake/Output Intake/Output: Intake & Output 06/01/24 06/02/24 06/03/24 06/04/24 23:59 23:59 23:59 23:59 Intake Total 915 452 5170 1000 Output Total 600 425 Balance 400 -60 1125 1000 Meds/Results Medications: Active Medications Generic Name Dose Route Start Last Admin Trade Name Freq PRN Reason Stop Dose Admin Acetaminophen 1,000 mg 06/02/24 09:00 06/03/24 17:10 Acetaminophen 500 Mg Tablet PO 1,000 mg BID JOSE Administration Hydrocodone Bitart/Acetaminophen 1 tab 06/02/24 08:12 06/04/24 05:37 Hydrocodone/Acetaminophen (*Crx) 5-325 Mg Tablet PO 1 tab Q6H PRN Administration Pain Rated 7-10 Allopurinol 100 mg 06/03/24 09:00 06/03/24 08:40 Allopurinol 100 Mg Tablet PO 100 mg [email or web address] JOSE Administration Calcium Carbonate 500 mg 06/02/24 09:00 06/03/24 17:11 Calcium/Vitamin D 500 Mg/5 Mcg (200 I.U.) Tablet PO 500 mg BID JOSE Administration Dextrose 12.5 gm 06/01/24 20:32 Dextrose 50% 25 Gm/50 Ml Syringe IV PUSH PRN PRN Hypoglycemia Protocol Doxycycline Hyclate 100 mg 06/03/24 06:00 06/04/24 05:35 Doxycycline Hyclate 100 Mg Tablet PO 100 mg Q12H JOSE Administration Ferrous Sulfate 325 mg 06/02/24 09:00 06/03/24 17:10 Ferrous Sulfate [address] PO 325 mg BID JOSE Administration Glucagon 1 mg 06/01/24 20:32 Glucagon For Inj 1 Mg Vial IM PRN PRN Hypoglycemia Protocol Glucose 15 gm 06/01/24 20:32 Glucose Oral Gel 15 Gm Of Glucse In 37.5 Gm Tube PO PRN PRN Hypoglycemia Protocol Dextrose 1,000 mls @ 100 mls/hr 06/01/24 20:32 Dextrose 5% 1,000 Ml IVPB PRN PRN Hypoglycemia Protocol Dextrose/Sodium Chloride 1,000 mls @ 50 mls/hr 06/02/24 09:40 06/04/24 05:35 Dextrose 5% Sodium Chloride 0.9% IV CONT 50 mls/hr .Q20H JOSE Administration Insulin Aspart 3 - 6 units 06/02/24 00:00 06/04/24 05:39 Insulin Aspart (*Bkc) 100 Units/Ml SUB-Q Not Given Q6HR JOSE Protocol Ketorolac Tromethamine 1 drop 06/01/24 20:50 06/03/24 17:11 Ketorolac 0.5% Op Soln 5 Ml Bottle LEFT EYE 1 drop TID JOSE Administration Lactulose 15 gm 06/02/24 17:00 06/03/24 17:11 Lactulose 20 Gm/30 Ml Udc PO 15 gm BID JOSE Administration Lidocaine 2 patch 06/02/24 09:00 06/03/24 08:38 Lidocaine 5% Patch TOPICAL 2 patch DAILY JOSE Administration Morphine Sulfate 2 mg 06/01/24 20:22 06/03/24 08:44 Morphine Sulfate (*Crx) 2 Mg/Ml Inj IV PUSH 2 mg Q4H PRN Administration Pain Rated 7-10 Moxifloxacin HCl 1 drop 06/01/24 21:00 06/03/24 20:12 Moxifloxacin Hcl 0.5% 3 Ml Ophth Soln LEFT EYE 1 drop Q12H JOSE Administration Polyethylene Glycol 17 gm 06/01/24 20:35 Polyethylene Glycol 3350 17 Gm Powd.Pack PO DAILY PRN Constipation Propranolol HCl 20 mg 06/01/24 21:00 06/03/24 20:17 Propranolol Hcl 20 Mg Tablet PO 20 mg Q12H JOSE Administration Rifaximin 550 mg 06/02/24 21:00 06/03/24 20:11 Rifaximin 550 Mg Tablet PO 550 mg Q12HR JOSE Administration Ropinirole HCl 0.25 mg 06/01/24 21:00 06/03/24 20:11 Ropinirole Hcl 0.25 Mg Tablet PO 0.25 mg HS JOSE Administration Senna/Docusate Sodium 2 tab 06/01/24 20:50 06/03/24 17:10 Senna/Docusate Sodium Tablet PO Not Given BID JOSE Tramadol HCl 25 mg 06/02/24 08:10 06/02/24 19:51 Tramadol Hcl (*Crx) 25 Mg Tablet PO 25 mg Q4H PRN Administration Pain Rated 4-6 Radiology Results: ITS Impressions Venous Doppler Study 06/02/24 10:48 IMPRESSION: 1. Deep vein thrombosis involving the right peroneal veins. ADDENDUM: 06/02/24 1058 I discussed this result with Latoya Hernandez. Chest X-Ray 06/02/24 11:21 IMPRESSION: 1. No acute cardiopulmonary disease. Lower Extremity CT 06/02/24 12:35 IMPRESSION: 1. Subcutaneous hematoma lateral to the right hip. 2. Comminuted fracture of greater trochanter of proximal right femur. 3. Bipolar right hip hemiarthroplasty in near-anatomic alignment. 4. Mild right hip osteoarthritis. 5. Moderate volume of ascites. Labs Labs: Laboratory Results - last 24 hr 06/03/24 06/03/24 06/03/24 07:38 12:01 14:55 WBC 3.3 L RBC 2.47 L Hgb 7.9 L 8.2 L Hct 24.1 L 26.0 L MCV 97.6 MCH 32.0 MCHC 32.8 RDW 23.0 H Plt Count 100 L MPV 9.8 Immature Gran % (Auto) 0.3 Neut % (Auto) 76.6 H Lymph % (Auto) 12.6 L [place] % (Auto) 10.2 H Eos % (Auto) 0.0 Baso % (Auto) 0.3 Lymph # (Auto) 0.42 L [place] # (Auto) 0.3 Eos # (Auto) 0.0 Baso # (Auto) 0.0 Abs Immat Gran (auto) 0.01 Absolute Neuts (auto) 2.6 Absolute Nucleated RBC 0.000 Nucleated RBC % 0.0 Platelet Estimate Adequate % Immature Plt Fraction 2.2 Polychromasia 1+ Anisocytosis 1+ Schistocytes None seen PT INR APTT Sodium 131 L Potassium 3.3 L Chloride 104 Carbon Dioxide 25 Anion Gap 2 L BUN 21 H Creatinine 0.70 Estim Creat Clear Calc 58 Estimated GFR > 60 Glucose 199 H POC Capillary Glucose 181 H Calcium 7.4 L Total Bilirubin 2.1 H AST 30 ALT 11 Alkaline Phosphatase 110 Total Protein 5.0 L Albumin 2.3 L 06/03/24 06/03/24 06/04/24 18:01 23:11 04:47 WBC 3.2 L RBC 2.61 L Hgb 8.4 L Hct 26.3 L MCV 100.8 H MCH 32.2 MCHC 31.9 L RDW 23.5 H Plt Count 104 L MPV 10.2 Immature Gran % (Auto) 0.3 Neut % (Auto) 69.2 Lymph % (Auto) 16.0 L [place] % (Auto) 12.3 H Eos % (Auto) 1.9 Baso % (Auto) 0.3 Lymph # (Auto) 0.52 L [place] # (Auto) 0.4 Eos # (Auto) 0.1 Baso # (Auto) 0.0 Abs Immat Gran (auto) 0.01 Absolute Neuts (auto) 2.2 Absolute Nucleated RBC 0.000 Nucleated RBC % 0.0 Platelet Estimate Decreased % Immature Plt Fraction Polychromasia 1+ Anisocytosis 2+ Schistocytes None seen PT 17.8 H INR 1.4 APTT 39.4 H Sodium 131 L Potassium 3.3 L Chloride 105 Carbon Dioxide 26 Anion Gap 0 L BUN 20 H Creatinine 0.60 L Estim Creat Clear Calc 68 Estimated GFR > 60 Glucose 177 H POC Capillary Glucose 160 H 190 H Calcium 7.5 L Total Bilirubin 1.8 H AST 36 ALT 12 Alkaline Phosphatase 118 Total Protein 5.0 L Albumin 2.4 L 06/04/24 05:33 WBC RBC Hgb Hct MCV MCH MCHC RDW Plt Count MPV Immature Gran % (Auto) Neut % (Auto) Lymph % (Auto) [place] % (Auto) Eos % (Auto) Baso % (Auto) Lymph # (Auto) [place] # (Auto) Eos # (Auto) Baso # (Auto) Abs Immat Gran (auto) Absolute Neuts (auto) Absolute Nucleated RBC Nucleated RBC % Platelet Estimate % Immature Plt Fraction Polychromasia Anisocytosis Schistocytes PT INR APTT Sodium Potassium Chloride Carbon Dioxide Anion Gap BUN Creatinine Estim Creat Clear Calc Estimated GFR Glucose POC Capillary Glucose 190 H Calcium Total Bilirubin AST ALT Alkaline Phosphatase Total Protein Albumin Quality VTE Prophylaxis VTE prophylaxis: mechanical ordered
--- NOTE | 2024-06-04 07:25 | PM.PNORT ---
Progress Note: A&P Assessment and Plan (1) Bacteremia: Code(s): R78.81 - Bacteremia Status: Acute Assessment and Plan: Patient is status post bipolar endoprosthetic replacement. Unfortunately her medical conditions are superseding that issue. She has had of what appears to be a GI bleed and ao hematoma. She also has developed a septicemia and is presently on antibiotics. She has liver issues. And despite being on anticoagulation bleeding she has a DVT in her lower extremities. Makes it very difficult to on treat. Because the host of medical problems. Following along. (2) DVT (deep venous thrombosis): Code(s): I82.409 - Acute embolism and thrombosis of unspecified deep veins of unspecified lower extremity Status: Acute (3) Cirrhosis of liver with ascites: Code(s): K74.60 - Unspecified cirrhosis of liver; R18.8 - Other ascites Status: Acute (4) Closed fracture of neck of right femur: Qualifiers: Encounter type: initial encounter Qualified Code(s): S72.001A - Fracture of unspecified part of neck of right femur, initial encounter for closed fracture Code(s): S72.001A - Fracture of unspecified part of neck of right femur, initial encounter for closed fracture Status: Acute Subjective Subjective Date/Time Seen: 06/04/24 07:25 Principal diagnosis: Bipolar. Cirrhosis. Bacteremia Review of Systems Musculoskeletal: Musculoskeletal: Reports arthralgias, Reports joint swelling, Reports muscle weakness and Reports stiffness Exam Narrative: Patient complaining of hip pain dressing intact. She appears to be neurologically intact. Objective Data Vital Signs Vital Signs: Vital Signs - 24 hr 06/03/24 08:36 06/03/24 08:00 06/03/24 13:10 Temperature Pulse Rate 82 Respiratory Rate Blood Pressure Pulse Oximetry Oxygen Delivery Room Air Room Air 06/03/24 14:00 06/03/24 20:17 06/03/24 20:18 Temperature 97.6 F 98.1 F Pulse Rate 69 76 75 Respiratory Rate 14 16 Blood Pressure 129/49 L 139/52 L Pulse Oximetry 98 100 Oxygen Delivery 06/03/24 20:00 06/04/24 04:25 Temperature 98.8 F Pulse Rate 78 Respiratory Rate 16 Blood Pressure 151/51 H Pulse Oximetry 97 Oxygen Delivery Room Air Intake/Output Intake/Output: Intake & Output 1106/02/24 06/03/24 06/04/24 23:59 23:59 23:59 23:59 Intake Total 907 422 6830 1000 Output Total 600 425 Balance 400 -60 1125 1000 Meds/Results Medications: Active Medications Generic Name Dose Route Start Last Admin Trade Name Freq PRN Reason Stop Dose Admin Acetaminophen 1,000 mg 06/02/24 09:00 06/03/24 17:10 Acetaminophen 500 Mg Tablet PO 1,000 mg BID JOSE Administration Hydrocodone Bitart/Acetaminophen 1 tab 06/02/24 08:12 06/04/24 05:37 Hydrocodone/Acetaminophen (*Crx) 5-325 Mg Tablet PO 1 tab Q6H PRN Administration Pain Rated 7-10 Allopurinol 100 mg 06/03/24 09:00 06/03/24 08:40 Allopurinol 100 Mg Tablet PO 100 mg [email or web address] JOSE Administration Calcium Carbonate 500 mg 06/02/24 09:00 06/03/24 17:11 Calcium/Vitamin D 500 Mg/5 Mcg (200 I.U.) Tablet PO 500 mg BID JOSE Administration Dextrose 12.5 gm 06/01/24 20:32 Dextrose 50% 25 Gm/50 Ml Syringe IV PUSH PRN PRN Hypoglycemia Protocol Doxycycline Hyclate 100 mg 06/03/24 06:00 06/04/24 05:35 Doxycycline Hyclate 100 Mg Tablet PO 100 mg Q12H JOSE Administration Ferrous Sulfate 325 mg 06/02/24 09:00 06/03/24 17:10 Ferrous Sulfate [address] PO 325 mg BID JOSE Administration Glucagon 1 mg 06/01/24 20:32 Glucagon For Inj 1 Mg Vial IM PRN PRN Hypoglycemia Protocol Glucose 15 gm 06/01/24 20:32 Glucose Oral Gel 15 Gm Of Glucse In 37.5 Gm Tube PO PRN PRN Hypoglycemia Protocol Dextrose 1,000 mls @ 100 mls/hr 06/01/24 20:32 Dextrose 5% 1,000 Ml IVPB PRN PRN Hypoglycemia Protocol Dextrose/Sodium Chloride 1,000 mls @ 50 mls/hr 06/02/24 09:40 06/04/24 05:35 Dextrose 5% Sodium Chloride 0.9% IV CONT 50 mls/hr .Q20H JOSE Administration Insulin Aspart 3 - 6 units 06/02/24 00:00 06/04/24 05:39 Insulin Aspart (*Bkc) 100 Units/Ml SUB-Q Not Given Q6HR [facility] Protocol Ketorolac Tromethamine 1 drop 06/01/24 20:50 06/03/24 17:11 Ketorolac 0.5% Op Soln 5 Ml Bottle LEFT EYE 1 drop TID JOSE Administration Lactulose 15 gm 06/02/24 17:00 06/03/24 17:11 Lactulose 20 Gm/30 Ml Udc PO 15 gm BID JOSE Administration Lidocaine 2 patch 06/02/24 09:00 06/03/24 08:38 Lidocaine 5% Patch TOPICAL 2 patch DAILY JOSE Administration Morphine Sulfate 2 mg 06/01/24 20:22 06/03/24 08:44 Morphine Sulfate (*Crx) 2 Mg/Ml Inj IV PUSH 2 mg Q4H PRN Administration Pain Rated 7-10 Moxifloxacin HCl 1 drop 06/01/24 21:00 06/03/24 20:12 Moxifloxacin Hcl 0.5% 3 Ml Ophth Soln LEFT EYE 1 drop Q12H JOSE Administration Polyethylene Glycol 17 gm 06/01/24 20:35 Polyethylene Glycol 3350 17 Gm Powd.Pack PO DAILY PRN Constipation Propranolol HCl 20 mg 06/01/24 21:00 06/03/24 20:17 Propranolol Hcl 20 Mg Tablet PO 20 mg Q12H JOSE Administration Rifaximin 550 mg 06/02/24 21:00 06/03/24 20:11 Rifaximin 550 Mg Tablet PO 550 mg Q12HR JOSE Administration Ropinirole HCl 0.25 mg 06/01/24 21:00 06/03/24 20:11 Ropinirole Hcl 0.25 Mg Tablet PO 0.25 mg HS JOSE Administration Senna/Docusate Sodium 2 tab 06/01/24 20:50 06/03/24 17:10 Senna/Docusate Sodium Tablet PO Not Given BID JOSE Tramadol HCl 25 mg 06/02/24 08:10 06/02/24 19:51 Tramadol Hcl (*Crx) 25 Mg Tablet PO 25 mg Q4H PRN Administration Pain Rated 4-6 Radiology Results: ITS Impressions Venous Doppler Study 06/02/24 10:48 IMPRESSION: 1. Deep vein thrombosis involving the right peroneal veins. ADDENDUM: 06/02/24 1058 I discussed this result with Latoya Hernandez. Chest X-Ray 06/02/24 11:21 IMPRESSION: 1. No acute cardiopulmonary disease. Lower Extremity CT 06/02/24 12:35 IMPRESSION: 1. Subcutaneous hematoma lateral to the right hip. 2. Comminuted fracture of greater trochanter of proximal right femur. 3. Bipolar right hip hemiarthroplasty in near-anatomic alignment. 4. Mild right hip osteoarthritis. 5. Moderate volume of ascites. Labs Labs: Laboratory Results - last 24 hr 06/03/24 06/03/24 06/03/24 07:38 12:01 14:55 WBC 3.3 L RBC 2.47 L Hgb 7.9 L 8.2 L Hct 24.1 L 26.0 L MCV 97.6 MCH 32.0 MCHC 32.8 RDW 23.0 H Plt Count 100 L MPV 9.8 Immature Gran % (Auto) 0.3 Neut % (Auto) 76.6 H Lymph % (Auto) 12.6 L [place] % (Auto) 10.2 H Eos % (Auto) 0.0 Baso % (Auto) 0.3 Lymph # (Auto) 0.42 L [place] # (Auto) 0.3 Eos # (Auto) 0.0 Baso # (Auto) 0.0 Abs Immat Gran (auto) 0.01 Absolute Neuts (auto) 2.6 Absolute Nucleated RBC 0.000 Nucleated RBC % 0.0 Platelet Estimate Adequate % Immature Plt Fraction 2.2 Polychromasia 1+ Anisocytosis 1+ Schistocytes None seen PT INR APTT Sodium 131 L Potassium 3.3 L Chloride 104 Carbon Dioxide 25 Anion Gap 2 L BUN 21 H Creatinine 0.70 Estim Creat Clear Calc 58 Estimated GFR > 60 Glucose 199 H POC Capillary Glucose 181 H Calcium 7.4 L Total Bilirubin 2.1 H AST 30 ALT 11 Alkaline Phosphatase 110 Total Protein 5.0 L Albumin 2.3 L 06/03/24 06/03/24 06/04/24 18:01 23:11 04:47 WBC 3.2 L RBC 2.61 L Hgb 8.4 L Hct 26.3 L MCV 100.8 H MCH 32.2 MCHC 31.9 L RDW 23.5 H Plt Count 104 L MPV 10.2 Immature Gran % (Auto) 0.3 Neut % (Auto) 69.2 Lymph % (Auto) 16.0 L [place] % (Auto) 12.3 H Eos % (Auto) 1.9 Baso % (Auto) 0.3 Lymph # (Auto) 0.52 L [place] # (Auto) 0.4 Eos # (Auto) 0.1 Baso # (Auto) 0.0 Abs Immat Gran (auto) 0.01 Absolute Neuts (auto) 2.2 Absolute Nucleated RBC 0.000 Nucleated RBC % 0.0 Platelet Estimate Decreased % Immature Plt Fraction Polychromasia 1+ Anisocytosis 2+ Schistocytes None seen PT 17.8 H INR 1.4 APTT 39.4 H Sodium 131 L Potassium 3.3 L Chloride 105 Carbon Dioxide 26 Anion Gap 0 L BUN 20 H Creatinine 0.60 L Estim Creat Clear Calc 68 Estimated GFR > 60 Glucose 177 H POC Capillary Glucose 160 H 190 H Calcium 7.5 L Total Bilirubin 1.8 H AST 36 ALT 12 Alkaline Phosphatase 118 Total Protein 5.0 L Albumin 2.4 L 06/04/24 05:33 WBC RBC Hgb Hct MCV MCH MCHC RDW Plt Count MPV Immature Gran % (Auto) Neut % (Auto) Lymph % (Auto) [place] % (Auto) Eos % (Auto) Baso % (Auto) Lymph # (Auto) [place] # (Auto) Eos # (Auto) Baso # (Auto) Abs Immat Gran (auto) Absolute Neuts (auto) Absolute Nucleated RBC Nucleated RBC % Platelet Estimate % Immature Plt Fraction Polychromasia Anisocytosis Schistocytes PT INR APTT Sodium Potassium Chloride Carbon Dioxide Anion Gap BUN Creatinine Estim Creat Clear Calc Estimated GFR Glucose POC Capillary Glucose 190 H Calcium Total Bilirubin AST ALT Alkaline Phosphatase Total Protein Albumin
[2024-06-04 09:25] VITALS: PULSE 80
[2024-06-04] MEDS: PROPRANOLOL HCL 20 MG TABLET PO ×2 (09:25→20:24)
[2024-06-04] MEDS: KETOROLAC 0.5% OP SOLN 5 ML BOTTLE 1 DROP LEFT EYE ×3 (09:25→17:14)
[2024-06-04] MEDS: ACETAMINOPHEN 500 MG TABLET 1000 MG PO ×2 (09:30→17:14)
[2024-06-04] MEDS: LACTULOSE 20 GM/30 ML UDC 15 GM PO ×2 (09:30→17:13)
[2024-06-04] MEDS: FERROUS SULFATE 325 MG TABLET DR PO ×2 (09:30→17:14)
[2024-06-04] MEDS: MOXIFLOXACIN HCL 0.5% 3 ML OPHTH SOLN 1 DROP LEFT EYE ×2 (09:31→20:25)
[2024-06-04] MEDS: CALCIUM/VITAMIN D 500 MG/5 MCG (200 I.U.) TABLET PO ×2 (09:50→17:14)
[2024-06-04] MEDS: rifAXIMin 550 MG TABLET PO ×2 (09:50→20:24)
[2024-06-04] MEDS: LIDOCAINE 5% PATCH 2 PATCH TOPICAL (10:26)
[2024-06-04 11:55] LABS: Glucose Point of Care 171 mg/dl (65-105)
--- NOTE | 2024-06-04 12:32 | PC.NURSE ---
On 06/04/24, the student, [Caitlin Garcia], provided care and completed [facility] documentation on this patient. I have reviewed the student's documentation and agree with the findings.
[2024-06-04 14:02] VITALS: BP 130/46; PULSE 66; RESP 16; TEMP 36.8; O2SAT 100
[2024-06-04] MEDS: cefTRIAXone 2 GM/NS 100 ML 2 GM/100 ML BAG IVPB (14:19)
--- NOTE | 2024-06-04 14:51 | P.PNIM_ITS ---
Progress Note: A&P Assessment and Plan (1) Symptomatic anemia: Code(s): D64.9 - Anemia, unspecified Status: Acute Assessment and Plan: * History of anemia at baseline * Received 2 units of blood at [place] * She was noted to have dark tarry stool with blood on stool at [facility] * History of internal hemorrhoids * Patient was anemic postoperative as well requiring 2 units of blood on 05/18 and 05/19 * Patient was on Xarelto for DVT prophylaxis postoperatively which has been held since 05/31/24 * GI following * Continue Protonix b.i.d. * Low-fiber diet ordered * SCDs for DVT prophylaxis * Fibrinogen normal * Continue ferrous sulfate * Hemoglobin stable 8.6> 8.6> 8.2>8.3>8.7>7.9> 8.4 since her last blood transfusion, vital signs are stable * Reported shortness of breath, chest x-ray over at [facility] was negative for any acute findings. She is currently on room air. Likely secondary to her anemia. (2) Melena: Code(s): K92.1 - Melena Status: Acute Assessment and Plan: See above (3) Bacteremia: Code(s): R78.81 - Bacteremia Status: Acute Assessment and Plan: * Blood cultures showing Staphylococcus aureus on preliminary read and both sets of blood cultures * Wound culture showing Klebsiella pneumoniae and Enterococcus species on preliminary read * Started Rocephin and vancomycin today * Had 1 dose of Levaquin on Monday * Will need to get blood cultures in 48 hours (4) Pancytopenia: Code(s): D61.818 - Other pancytopenia Status: Acute Assessment and Plan: * White blood cell count 3.2, RBC 2.61, platelet count 104 * Likely secondary to bacteremia infection * Continue to trend * Consider hematology consult if no improvement (5) Cirrhosis of liver with ascites: Code(s): K74.60 - Unspecified cirrhosis of liver; R18.8 - Other ascites Status: Acute Assessment and Plan: * Abdomen/pelvis CT from 05/31/2024 showed moderate ascites with cirrhosis * Will get hepatitis panel pending * Total bili 2.1 * Liver enzymes within normal limits * Ammonia level normal * Plan for paracentesis today with cytology * GI following (6) DVT (deep venous thrombosis): Code(s): I82.409 - Acute embolism and thrombosis of unspecified deep veins of unspecified lower extremity Status: Acute Assessment and Plan: * Doppler shown DVT * No good way to anticoagulate * Possibly will need IVC filter in the future, will touch base with Dr. Samuel about when IVC filter will be appropriate. (7) Diastolic dysfunction: Code(s): I51.89 - Other ill-defined heart diseases Status: Chronic Assessment and Plan: * Last echo reviewed from 02/27/2023 which showed a normal LV systolic function with an estimated EF of 65-70%, diastolic dysfunction noted, moderate aortic valve sclerosis moderate mitral and tricuspid valve regurgitation, mild pulmonary hypertension * Bilateral lower extremity swelling * Ultrasound doppler positive for DVT (8) Closed fracture of neck of right femur: Qualifiers: Encounter type: initial encounter Qualified Code(s): S72.001A - Fracture of unspecified part of neck of right femur, initial encounter for closed fracture Code(s): S72.001A - Fracture of unspecified part of neck of right femur, initial encounter for closed fracture Status: Acute Assessment and Plan: * S/P right bipolar hip replacement with Dr. Balbuena on 05/16/24 * Surgical incision with jennie, ecchymosis noted right thigh and lateral hip * Continue PT and OT * Recently at [facility] for swing bed program for rehab * Dr. Balbuena following * Continue pain control * Wound culture showing Klebsiella pneumoniae and enterococcus species on preliminary read * Blood culture showing Staphylococcus Aureus on preliminary read (9) Diabetes: Code(s): E11.9 - Type 2 diabetes mellitus without complications Status: Chronic Assessment and Plan: * Blood sugars ranging 177-190 * Hgb A1C 5.2 * Accu checks q.6 hour * Moderate dose SSI ordered * hypoglycemic protocol in place * Currently NPO Time Spent With Patient Time with patient: Greater than 35 minutes Subjective Date/time seen: 06/04/24 14:51 Interval history: Interval History: (Copy forward from my transfer summary at [facility]) Khadra Crook is a 84 year old female with a significant past medical history of anemia, arthritis, dyslipidemia, gout, hypertension, type 2 diabetes mellitus, liver cancer, former smoker who presented to [facility] for swing bed rehab program on 05/22/2024 from [facility] after having a right bipolar hip replacement done on 05/16/2024. patient originally presented to the hospital on 05/16/2024 after sustaining a mechanical fall at home. Patient apparently was coming in from letting her dog out to go the bathroom when she tripped over the door frame causing her to fall on her right side. She immediately had pain and EMS was called. She was brought to [facility] initially with Ortho consult for a right femoral neck fracture seen on x-ray. She went to the operating room that day and had a right bipolar hip replacement done with Dr. Balbuena. patient was seen by therapy who is recommending SNF placement. The only complication after surgery is that her hemoglobin dropped on 05/18 down to 6.8 requiring a unit of blood to be given. They repeated an H&H on 05/18/2024 requiring another unit of blood to be given. Her H&H was considered stable after those 2 units. She was then transferred to [facility] for the swing bed rehab program on 05/22/2024 in stable condition. Patient started working with therapy here at [facility] and had no complications up until 05/30/2024 when the patient started to become more confused with increased pain and started passing bright red blood per rectum. She was place on Xarelto for DVT prophylaxis immediately postop and was going to continue this per protocol after having a total hip replacement However this was held on the night of of 05/30/2024. hemoglobin went from 8.5 down to 7.7 that evening and then in the morning was still stable at 7.6. Patient was not symptomatic. Her vital signs were stable including her blood pressure. This morning we went ahead and checked her labs again which shown a further drop in hemoglobin of 5.7 requiring blood transfusion. With these concerns we decided that it was in our best interest to send her to [place] for GI consult. She was given 2 units of blood at [facility] with the 2nd unit infusing en route to [place]. her hemoglobin in between blood transfusions was 6.7. I spoke with Dr. Negro, (GI) who accepts consult. I then spoke with Dr. Lou, (hospitalist) who accepts patient transfer to the hospital. Lastly, I called Dr. Balbuena (orthopedic surgeon) out of courtesy to update and let him know we held Xarelto and aspirin due to GI bleeding. Dr. Balbuena said that he will see her on Monday. Patient was transferred in stable condition via EMS. Subjective: Patient states that her pain is better controlled today. She is alert oriented x3. Family is at the bedside. Labs and cultures reviewed. Review of Systems Review of Systems: All systems reviewed & are unremarkable except as noted in HPI and below Constitutional: Constitutional: Reports as per HPI and Reports no additional constitutional complaints Eyes: Eyes: Reports as per HPI and Reports no additional eye complaints ENT: Reports system reviewed and no additional complaints, except as documented and Reports as per HPI Cardiovascular: Cardiovascular: Reports as per HPI and Reports no additional cardiovascular complaints Respiratory: Respiratory: Reports as per HPI and Reports no additional respiratory complaints Gastrointestinal: Gastrointestinal: Reports as per HPI and Reports no additional gastrointestinal complaints Genitourinary: Genitourinary: Reports no additional female genitourinary complaints and Reports as per HPI Musculoskeletal: Musculoskeletal: Reports no additional musculoskeletal complaints and Reports as per HPI Integumentary/Breasts: Skin/Breast: Reports system reviewed and no additional complaints, except as docu and Reports as per HPI Neurologic: Reports system reviewed and no additional complaints, except as documented and Reports as per HPI Psychiatric: Psychiatric: Reports no additional psychiatric complaints and Reports as per HPI Exam Narrative: General: In no acute distress, well nourished Cardiac: Normal S1 and S2. No murmur, gallops or friction rubs, peripheral pulses intact. Respiratory: Lungs clear to auscultation, no adventitious lung sounds, currently on room air Gastrointestinal: soft, non-distended, non-tender, normoactive bowel sounds. : voiding without difficulty, bebo urine Extremities: moves all extremities well, 1-2+ pitting edema bilateral lower extremities right greater than left Skin: Surgical incision on right hip open the air with jennie, no redness noted, serous drainage noted on bandage. Neuro: Alert and oriented x3 Psych: interactive Objective Data Vital Signs Vital Signs: Vital Signs - 24 hr 06/03/24 20:17 06/03/24 20:18 06/03/24 20:00 Temperature 98.1 F Pulse Rate 76 75 Respiratory Rate 16 Blood Pressure 139/52 L Pulse Oximetry 100 Oxygen Delivery Room Air 06/04/24 04:25 06/04/24 08:11 06/04/24 09:25 Temperature 98.8 F Pulse Rate 78 80 Respiratory Rate 16 Blood Pressure 151/51 H Pulse Oximetry 97 Oxygen Delivery Room Air 06/04/24 08:00 06/04/24 14:02 Temperature 98.3 F Pulse Rate 66 Respiratory Rate 16 Blood Pressure 130/46 L Pulse Oximetry 100 Oxygen Delivery Room Air Intake/Output Intake/Output: Intake & Output 06/01/24 06/02/24 06/03/24 06/04/24 23:59 23:59 23:59 23:59 Intake Total 451 360 0362 1000 Output Total 600 425 Balance 400 -60 1125 1000 Meds/Results Medications: Active Medications Generic Name Dose Route Start Last Admin Trade Name Freq PRN Reason Stop Dose Admin Acetaminophen 1,000 mg 06/02/24 09:00 06/04/24 09:30 Acetaminophen 500 Mg Tablet PO 1,000 mg BID JOSE Administration Hydrocodone Bitart/Acetaminophen 1 tab 06/02/24 08:12 06/04/24 11:59 Hydrocodone/Acetaminophen (*Crx) 5-325 Mg Tablet PO 1 tab Q6H PRN Administration Pain Rated 7-10 Allopurinol 100 mg 06/03/24 09:00 06/03/24 08:40 Allopurinol 100 Mg Tablet PO 100 mg [email or web address] JOSE Administration Calcium Carbonate 500 mg 06/02/24 09:00 06/04/24 09:50 Calcium/Vitamin D 500 Mg/5 Mcg (200 I.U.) Tablet PO 500 mg BID JOSE Administration Dextrose 12.5 gm 06/01/24 20:32 Dextrose 50% 25 Gm/50 Ml Syringe IV PUSH PRN PRN Hypoglycemia Protocol Ferrous Sulfate 325 mg 06/02/24 09:00 06/04/24 09:30 Ferrous Sulfate [address] PO 325 mg BID JOSE Administration Glucagon 1 mg 06/01/24 20:32 Glucagon For Inj 1 Mg Vial IM PRN PRN Hypoglycemia Protocol Glucose 15 gm 06/01/24 20:32 Glucose Oral Gel 15 Gm Of Glucse In 37.5 Gm Tube PO PRN PRN Hypoglycemia Protocol Guaifenesin/Dextromethorphan 10 ml 06/04/24 14:49 Guaifenesin/Dextromethorphan 10 Ml Udc PO Q4H PRN Cough Dextrose 1,000 mls @ 100 mls/hr 06/01/24 20:32 Dextrose 5% 1,000 Ml IVPB PRN PRN Hypoglycemia Protocol Dextrose/Sodium Chloride 1,000 mls @ 50 mls/hr 06/02/24 09:40 06/04/24 05:35 Dextrose 5% Sodium Chloride 0.9% IV CONT 50 mls/hr .Q20H JOSE Administration Ceftriaxone Sodium 2 gm in 100 mls @ 200 mls/hr 06/04/24 14:00 06/04/24 14:19 Rocephin 2 Gm/Ns 100 Ml IVPB 200 mls/hr Q24H JOSE Administration Vancomycin HCl 1,250 mg in 250 mls @ 166.667 mls/hr 06/04/24 14:30 Vancomycin 1,250 Mg/Ns 250 Ml IVPB 06/04/24 15:59 ONCE ONE Vancomycin HCl 1,000 mg in 250 mls @ 250 mls/hr 06/04/24 16:00 Vancomycin 1,000 Mg/Ns 250 Ml IVPB 06/04/24 16:59 ONCE ONE Vancomycin HCl 1,250 mg in 250 mls @ 166.667 mls/hr 06/05/24 08:00 Vancomycin 1,250 Mg/Ns 250 Ml IVPB Q18H [facility] Insulin Aspart 3 - 6 units 06/02/24 00:00 06/04/24 11:44 Insulin Aspart (*Bkc) 100 Units/Ml SUB-Q Not Given Q6HR [facility] Protocol Ketorolac Tromethamine 1 drop 06/01/24 20:50 06/04/24 13:15 Ketorolac 0.5% Op Soln 5 Ml Bottle LEFT EYE 1 drop TID JOSE Administration Lactulose 15 gm 06/02/24 17:00 06/04/24 09:30 Lactulose 20 Gm/30 Ml Udc PO 15 gm BID JOSE Administration Lidocaine 2 patch 06/02/24 09:00 06/04/24 10:26 Lidocaine 5% Patch TOPICAL 2 patch DAILY JOSE Administration Morphine Sulfate 2 mg 06/01/24 20:22 06/03/24 08:44 Morphine Sulfate (*Crx) 2 Mg/Ml Inj IV PUSH 2 mg Q4H PRN Administration Pain Rated 7-10 Moxifloxacin HCl 1 drop 06/01/24 21:00 06/04/24 09:31 Moxifloxacin Hcl 0.5% 3 Ml Ophth Soln LEFT EYE 1 drop Q12H JOSE Administration Polyethylene Glycol 17 gm 06/01/24 20:35 Polyethylene Glycol 3350 17 Gm Powd.Pack PO DAILY PRN Constipation Propranolol HCl 20 mg 11/30/24 21:00 06/04/24 09:25 Propranolol Hcl 20 Mg Tablet PO 20 mg Q12H JOSE Administration Rifaximin 550 mg 06/02/24 21:00 06/04/24 09:50 Rifaximin 550 Mg Tablet PO 550 mg Q12HR JOSE Administration Ropinirole HCl 0.25 mg 06/01/24 21:00 06/03/24 20:11 Ropinirole Hcl 0.25 Mg Tablet PO 0.25 mg HS JOSE Administration Senna/Docusate Sodium 2 tab 06/01/24 20:50 06/04/24 07:45 Senna/Docusate Sodium Tablet PO Not Given BID JOSE Tramadol HCl 25 mg 06/02/24 08:10 06/02/24 19:51 Tramadol Hcl (*Crx) 25 Mg Tablet PO 25 mg Q4H PRN Administration Pain Rated 4-6 Radiology Results: ITS Impressions Venous Doppler Study 06/02/24 10:48 IMPRESSION: 1. Deep vein thrombosis involving the right peroneal veins. ADDENDUM: 06/02/24 1058 I discussed this result with Latoya Hernandez. Chest X-Ray 06/02/24 11:21 IMPRESSION: 1. No acute cardiopulmonary disease. Lower Extremity CT 06/02/24 12:35 IMPRESSION: 1. Subcutaneous hematoma lateral to the right hip. 2. Comminuted fracture of greater trochanter of proximal right femur. 3. Bipolar right hip hemiarthroplasty in near-anatomic alignment. 4. Mild right hip osteoarthritis. 5. Moderate volume of ascites. Labs Labs: Laboratory Results - last 24 hr 06/03/24 06/03/24 06/03/24 14:55 18:01 23:11 WBC RBC Hgb 8.2 L Hct 26.0 L MCV MCH MCHC RDW Plt Count MPV Immature Gran % (Auto) Neut % (Auto) Lymph % (Auto) [place] % (Auto) Eos % (Auto) Baso % (Auto) Lymph # (Auto) [place] # (Auto) Eos # (Auto) Baso # (Auto) Abs Immat Gran (auto) Absolute Neuts (auto) Absolute Nucleated RBC Nucleated RBC % Platelet Estimate Polychromasia Anisocytosis Schistocytes PT INR APTT Sodium Potassium Chloride Carbon Dioxide Anion Gap BUN Creatinine Estim Creat Clear Calc Estimated GFR Glucose POC Capillary Glucose 160 H 190 H Calcium Total Bilirubin AST ALT Alkaline Phosphatase Total Protein Albumin 06/04/24 06/04/24 06/04/24 04:47 05:33 11:42 WBC 3.2 L RBC 2.61 L Hgb 8.4 L Hct 26.3 L MCV 100.8 H MCH 32.2 MCHC 31.9 L RDW 23.5 H Plt Count 104 L MPV 10.2 Immature Gran % (Auto) 0.3 Neut % (Auto) 69.2 Lymph % (Auto) 16.0 L [place] % (Auto) 12.3 H Eos % (Auto) 1.9 Baso % (Auto) 0.3 Lymph # (Auto) 0.52 L [place] # (Auto) 0.4 Eos # (Auto) 0.1 Baso # (Auto) 0.0 Abs Immat Gran (auto) 0.01 Absolute Neuts (auto) 2.2 Absolute Nucleated RBC 0.000 Nucleated RBC % 0.0 Platelet Estimate Decreased Polychromasia 1+ Anisocytosis 2+ Schistocytes None seen PT 17.8 H INR 1.4 APTT 39.4 H Sodium 131 L Potassium 3.3 L Chloride 105 Carbon Dioxide 26 Anion Gap 0 L BUN 20 H Creatinine 0.60 L Estim Creat Clear Calc 68 Estimated GFR > 60 Glucose 177 H POC Capillary Glucose 190 H 171 H Calcium 7.5 L Total Bilirubin 1.8 H AST 36 ALT 12 Alkaline Phosphatase 118 Total Protein 5.0 L Albumin 2.4 L Quality VTE Prophylaxis VTE prophylaxis: mechanical ordered
[2024-06-04] MEDS: VANCOMYCIN 1,250 MG/NS 250 ML 1,250 MG/250 ML BAG 166.67 MG IVPB (15:33)
[2024-06-04 16:10] LABS: Lymphocytes Peritoneal Fluid 44 %; Macrophages Peritoneal Fluid 12 %; Mesothelial Cells Peritoneal Fluid 12 %; Monocytes Peritoneal Fluid 25 %; Neutrophils Peritoneal Fluid 2 % (0-25)
[2024-06-04 16:12] LABS: Appearance Peritoneal Fluid Clear (Clear); Color Peritoneal Fluid Yellow (Colorless); Source Peritoneal Fluid Peritoneal Fluid
[2024-06-04 16:13] LABS: Nucleated Cells Peritoneal Flu 54 /uL (0-500); RBC Peritoneal Fluid < 2000 /uL (0-10000)
[2024-06-04] MEDS: VANCOMYCIN 1,000 MG/NS 250 ML 1,000 MG/250 ML BAG 250 MG IVPB (17:12)
[2024-06-04] MEDS: BENZONATATE 100 MG CAPSULE 200 MG PO (17:14)
--- NOTE | 2024-06-04 17:28 | WPDGIPROGNO ---
Progress Note: A&P Assessment and Plan (1) Cirrhosis: Code(s): K74.60 - Unspecified cirrhosis of liver Status: Acute Assessment and Plan: The patient is currently under antibiotic treatment for the finding of Staph aureus on blood cultures, getting ceftriaxone and vancomycin. Ascitic fluid is not infected and the amount removed is small, not to need albumin replacement. She will complete antibiotic therapy for bacteremia before an inferior vena caval filter is attempted, which is the only alternative to prevent pulmonary embolism from deep venous thrombosis the patient has at this moment. We can start low-dose diuretics to manage ascites, will start with spironolactone 100 mg once a day. Will continue follow-up (2) Cirrhosis of liver with ascites: Code(s): K74.60 - Unspecified cirrhosis of liver; R18.8 - Other ascites Status: Acute Subjective Date/time seen: 06/04/24 17:28 Interval history: Patient feeling better, just came from her paracentesis. 2200 cc of clear fluid were removed, fluid analysis did not show increased neutrophils. Review of Systems Review of Systems: All systems reviewed & are unremarkable except as noted in HPI and below Exam Narrative: General: In no acute distress, well nourished Cardiac: Normal S1 and S2. No murmur, gallops or friction rubs, peripheral pulses intact. Respiratory: Lungs clear to auscultation, no adventitious lung sounds, currently on room air Gastrointestinal: soft, non-distended, non-tender, normoactive bowel sounds. : voiding without difficulty, bebo urine Extremities: moves all extremities well, 1-2+ pitting edema bilateral lower extremities Skin: Surgical incision on right hip open the air with jennie, no redness noted, serous drainage noted on bandage. Neuro: Alert and oriented x3 Psych: interactive Objective Data Vital Signs Vital Signs: Vital Signs - 24 hr 06/03/24 20:17 06/03/24 20:18 06/03/24 20:00 Temperature 98.1 F Pulse Rate 76 75 Respiratory Rate 16 Blood Pressure 139/52 L Pulse Oximetry 100 Oxygen Delivery Room Air 06/04/24 04:25 06/04/24 08:11 06/04/24 09:25 Temperature 98.8 F Pulse Rate 78 80 Respiratory Rate 16 Blood Pressure 151/51 H Pulse Oximetry 97 Oxygen Delivery Room Air 06/04/24 08:00 06/04/24 14:02 Temperature 98.3 F Pulse Rate 66 Respiratory Rate 16 Blood Pressure 130/46 L Pulse Oximetry 100 Oxygen Delivery Room Air Intake/Output Intake/Output: Intake & Output 06/01/24 06/02/24 06/03/24 06/04/24 23:59 23:59 23:59 23:59 Intake Total 847 778 1932 1000 Output Total 512 248 1152 Balance 400 -60 1125 -1200 Meds/Results Medications: Active Medications Generic Name Dose Route Start Last Admin Trade Name Freq PRN Reason Stop Dose Admin Acetaminophen 1,000 mg 06/02/24 09:00 06/04/24 17:14 Acetaminophen 500 Mg Tablet PO 1,000 mg BID JOSE Administration Hydrocodone Bitart/Acetaminophen 1 tab 06/02/24 08:12 06/04/24 11:59 Hydrocodone/Acetaminophen (*Crx) 5-325 Mg Tablet PO 1 tab Q6H PRN Administration Pain Rated 7-10 Allopurinol 100 mg 06/03/24 09:00 06/03/24 08:40 Allopurinol 100 Mg Tablet PO 100 mg [id number] JOSE Administration Benzonatate 200 mg 06/04/24 17:00 06/04/24 17:14 Benzonatate 100 Mg Capsule PO 200 mg TID JOSE Administration Calcium Carbonate 500 mg 06/02/24 09:00 06/04/24 17:14 Calcium/Vitamin D 500 Mg/5 Mcg (200 I.U.) Tablet PO 500 mg BID JOSE Administration Dextrose 12.5 gm 06/01/24 20:32 Dextrose 50% 25 Gm/50 Ml Syringe IV PUSH PRN PRN Hypoglycemia Protocol Ferrous Sulfate 325 mg 06/02/24 09:00 06/04/24 17:14 Ferrous Sulfate [address] PO 325 mg BID JOSE Administration Glucagon 1 mg 06/01/24 20:32 Glucagon For Inj 1 Mg Vial IM PRN PRN Hypoglycemia Protocol Glucose 15 gm 06/01/24 20:32 Glucose Oral Gel 15 Gm Of Glucse In 37.5 Gm Tube PO PRN PRN Hypoglycemia Protocol Guaifenesin/Dextromethorphan 10 ml 06/04/24 14:49 Guaifenesin/Dextromethorphan 10 Ml Udc PO Q4H PRN Cough Dextrose 1,000 mls @ 100 mls/hr 06/01/24 20:32 Dextrose 5% 1,000 Ml IVPB PRN PRN Hypoglycemia Protocol Dextrose/Sodium Chloride 1,000 mls @ 50 mls/hr 06/02/24 09:40 06/04/24 05:35 Dextrose 5% Sodium Chloride 0.9% IV CONT 50 mls/hr .Q20H JOSE Administration Ceftriaxone Sodium 2 gm in 100 mls @ 200 mls/hr 06/04/24 14:00 06/04/24 14:19 Rocephin 2 Gm/Ns 100 Ml IVPB 200 mls/hr Q24H JOSE Administration Vancomycin HCl 1,250 mg in 250 mls @ 166.667 mls/hr 06/05/24 08:00 Vancomycin 1,250 Mg/Ns 250 Ml IVPB Q18H JOSE Insulin Aspart 3 - 6 units 06/02/24 00:00 06/04/24 17:20 Insulin Aspart (*Bkc) 100 Units/Ml SUB-Q Not Given Q6HR [facility] Protocol Ketorolac Tromethamine 1 drop 06/01/24 20:50 06/04/24 17:14 Ketorolac 0.5% Op Soln 5 Ml Bottle LEFT EYE 1 drop TID JOSE Administration Lactulose 15 gm 06/02/24 17:00 06/04/24 17:13 Lactulose 20 Gm/30 Ml Udc PO 15 gm BID JOSE Administration Lidocaine 2 patch 06/02/24 09:00 06/04/24 10:26 Lidocaine 5% Patch TOPICAL 2 patch DAILY JOSE Administration Morphine Sulfate 2 mg 06/01/24 20:22 06/03/24 08:44 Morphine Sulfate (*Crx) 2 Mg/Ml Inj IV PUSH 2 mg Q4H PRN Administration Pain Rated 7-10 Moxifloxacin HCl 1 drop 06/01/24 21:00 06/04/24 09:31 Moxifloxacin Hcl 0.5% 3 Ml Ophth Soln LEFT EYE 1 drop Q12H JOSE Administration Polyethylene Glycol 17 gm 06/01/24 20:35 Polyethylene Glycol 3350 17 Gm Powd.Pack PO DAILY PRN Constipation Propranolol HCl 20 mg 06/01/24 21:00 06/04/24 09:25 Propranolol Hcl 20 Mg Tablet PO 20 mg Q12H JOSE Administration Rifaximin 550 mg 06/02/24 21:00 06/04/24 09:50 Rifaximin 550 Mg Tablet PO 550 mg Q12HR JOSE Administration Ropinirole HCl 0.25 mg 06/01/24 21:00 06/03/24 20:11 Ropinirole Hcl 0.25 Mg Tablet PO 0.25 mg HS JOSE Administration Senna/Docusate Sodium 2 tab 06/01/24 20:50 06/04/24 17:12 Senna/Docusate Sodium Tablet PO Not Given BID JOSE Tramadol HCl 25 mg 06/02/24 08:10 06/02/24 19:51 Tramadol Hcl (*Crx) 25 Mg Tablet PO 25 mg Q4H PRN Administration Pain Rated 4-6 Radiology Results: ITS Impressions Venous Doppler Study 06/02/24 10:48 IMPRESSION: 1. Deep vein thrombosis involving the right peroneal veins. ADDENDUM: 06/02/24 1058 I discussed this result with Latoya Hernandez. Chest X-Ray 06/02/24 11:21 IMPRESSION: 1. No acute cardiopulmonary disease. Lower Extremity CT 06/02/24 12:35 IMPRESSION: 1. Subcutaneous hematoma lateral to the right hip. 2. Comminuted fracture of greater trochanter of proximal right femur. 3. Bipolar right hip hemiarthroplasty in near-anatomic alignment. 4. Mild right hip osteoarthritis. 5. Moderate volume of ascites. Paracentesis Ultrasound 06/04/24 15:04 IMPRESSION: 1. Successful ultrasound-guided paracentesis yielding 2200 mL of yellow fluid. Labs Labs: Laboratory Results - last 24 hr 06/03/24 06/03/24 06/04/24 18:01 23:11 04:47 WBC 3.2 L RBC 2.61 L Hgb 8.4 L Hct 26.3 L MCV 100.8 H MCH 32.2 MCHC 31.9 L RDW 23.5 H Plt Count 104 L MPV 10.2 Immature Gran % (Auto) 0.3 Neut % (Auto) 69.2 Lymph % (Auto) 16.0 L [place] % (Auto) 12.3 H Eos % (Auto) 1.9 Baso % (Auto) 0.3 Lymph # (Auto) 0.52 L [place] # (Auto) 0.4 Eos # (Auto) 0.1 Baso # (Auto) 0.0 Abs Immat Gran (auto) 0.01 Absolute Neuts (auto) 2.2 Absolute Nucleated RBC 0.000 Nucleated RBC % 0.0 Platelet Estimate Decreased Polychromasia 1+ Anisocytosis 2+ Schistocytes None seen PT 17.8 H INR 1.4 APTT 39.4 H Sodium 131 L Potassium 3.3 L Chloride 105 Carbon Dioxide 26 Anion Gap 0 L BUN 20 H Creatinine 0.60 L Estim Creat Clear Calc 68 Estimated GFR > 60 Glucose 177 H POC Capillary Glucose 160 H 190 H Calcium 7.5 L Total Bilirubin 1.8 H AST 36 ALT 12 Alkaline Phosphatase 118 Total Protein 5.0 L Albumin 2.4 L Peritoneal Source Peritoneal Color Peritoneal Appearance Peritoneal RBC Periton Nuc Cells Periton Neutrophils Periton Lymphocytes Peritoneal Monocytes Periton Mesothelial Periton Macrophages 06/04/24 06/04/24 06/04/24 05:33 11:42 14:42 WBC RBC Hgb Hct MCV MCH MCHC RDW Plt Count MPV Immature Gran % (Auto) Neut % (Auto) Lymph % (Auto) [place] % (Auto) Eos % (Auto) Baso % (Auto) Lymph # (Auto) [place] # (Auto) Eos # (Auto) Baso # (Auto) Abs Immat Gran (auto) Absolute Neuts (auto) Absolute Nucleated RBC Nucleated RBC % Platelet Estimate Polychromasia Anisocytosis Schistocytes PT INR APTT Sodium Potassium Chloride Carbon Dioxide Anion Gap BUN Creatinine Estim Creat Clear Calc Estimated GFR Glucose POC Capillary Glucose 190 H 171 H Calcium Total Bilirubin AST ALT Alkaline Phosphatase Total Protein Albumin Peritoneal Source Peritoneal fluid Peritoneal Color Yellow Peritoneal Appearance Clear Peritoneal RBC < 2000 Periton Nuc Cells 54 Periton Neutrophils 2 Periton Lymphocytes 44 Peritoneal Monocytes 25 Periton Mesothelial 12 Periton Macrophages 12
[2024-06-04 17:32] LABS: Glucose Point of Care 152 mg/dl (65-105)
[2024-06-04 19:54] VITALS: BP 130/48; PULSE 74; RESP 18; TEMP 36.5; O2SAT 96
[2024-06-04 20:24] VITALS: PULSE 74
[2024-06-04] MEDS: rOPINIRole HCL 0.25 MG TABLET PO (20:25)
[2024-06-04] MEDS: INSULIN ASPART (*BKC) 100 UNITS/ML SUB-Q (23:42)
[2024-06-05 01:17] LABS: Glucose Point of Care 212 mg/dl (65-105)
[2024-06-05 01:17] LABS: Glucose Point of Care 218 mg/dl (65-105)
[2024-06-05 04:06] VITALS: BP 145/50; PULSE 72; RESP 18; TEMP 36.8; O2SAT 98
[2024-06-05] MEDS: DEXTROSE 5%/0.9% SOD CHL 1,000 ML 50 ML IV CONT (04:07)
[2024-06-05 05:18] LABS: Glucose Point of Care 163 mg/dl (65-105)
[2024-06-05] MEDS: HYDROcodone/acetaminophen (*CRX) 5-325 MG TABLET 1 TAB PO ×3 (05:34→23:42)
[2024-06-05 05:38] LABS: Glucose Point of Care 178 mg/dl (65-105)
[2024-06-05 06:05] LABS: Basophils Percent Auto 0.6 % (0.2-1.2); Eosinophils Absolute Auto 0.1 K/mm3 (0-0.3); Eosinophils Percent Auto 2.3 % (0-4.4); Hematocrit 26.4 % (37.0-47.0); Hemoglobin 8.5 g/dL (12.0-15.0); Immature Granulocyte Absolute 0.01 K/mm3 (0.00-0.031); Immature Granulocyte Percent A 0.3 % (0-0.5); Lymphocytes Percent Auto 25.8 % (18.3-44.2); Mean Corpuscular HGB Conc 32.2 g/dl (32-36); Mean Corpuscular Hemoglobin 32.4 pg (26-34); Mean Corpuscular Volume 100.8 fl (80-100); Monocytes Absolute Auto 0.4 K/mm3 (0.1-0.6); Monocytes Percent Auto 13.2 % (2.6-8.5); Neutrophils Absolute Auto 1.8 K/mm3 (1.3-6.7); Neutrophils Percent Auto 57.8 % (45.5-73.1); Platelet Count Result 111 k/mm3 (150-375); Red Blood Count 2.62 M/mm3 (4.2-5.4); Red Cell Distribution Width 23.2 % (11.5-14.5); White Blood Count 3.1 K/mm3 (4.5-10.0)
[2024-06-05 06:15] LABS: Alanine Aminotransferase 11 U/L (6-35); Albumin Level 2.2 g/dL (3.5-5.1); Alkaline Phosphatase 124 U/L (38-126); Anion Gap 0 mmol/L (4-12); Aspartate Amino Transferase 35 U/L (14-36); Bilirubin,Total 1.3 mg/dL (0.2-1.3); Blood Urea Nitrogen 16 mg/dL (7-17); Calcium 7.4 mg/dL (8.4-10.2); Carbon Dioxide 25 mmol/L (22-30); Chloride 108 mmol/L (98-107); Estimated CRCL calculation 68 ml/min; Estimated Glomerular Filt Rate > 60; Glucose 169 mg/dL (65-110); Sodium 133 mmol/L (137-145)
[2024-06-05 06:40] LABS: Anisocytosis 2+; Platelet Estimate Slightly Decreased (Adequate); Polychromasia 1+; Schistocytes None Seen
--- NOTE | 2024-06-05 08:31 | P.PNIM_ITS ---
Progress Note: A&P Assessment and Plan (1) Symptomatic anemia: Code(s): D64.9 - Anemia, unspecified Status: Acute Assessment and Plan: * History of anemia at baseline * Received 2 units of blood at [place] * She was noted to have dark tarry stool with blood on stool at [facility] * History of internal hemorrhoids * Patient was anemic postoperative as well requiring 2 units of blood on 05/18 and 05/19 * Patient was on Xarelto for DVT prophylaxis postoperatively which has been held since 05/31/24 * GI following * Continue Protonix b.i.d. * Low-fiber diet ordered * SCDs for DVT prophylaxis * Fibrinogen normal * Continue ferrous sulfate * Hgb Remaining stable, no signs of active bleeding (2) Melena: Code(s): K92.1 - Melena Status: Acute Assessment and Plan: See above (3) Bacteremia: Code(s): R78.81 - Bacteremia Status: Acute Assessment and Plan: * Blood cultures showing Staphylococcus aureus on preliminary read and both sets of blood cultures * Wound culture showing Klebsiella pneumoniae and Enterococcus species on preliminary read * Had 1 dose of Levaquin on Monday * was placed on doxycycline on 06/03/2024 * changed doxycycline to vancomycin and Rocephin 2 g after discussing case with Infectious Disease pharmacy * new set of blood cultures obtained today (4) Pancytopenia: Code(s): D61.818 - Other pancytopenia Status: Acute Assessment and Plan: * White blood cell count 3.1, RBC 2.62, platelet count 111 * Likely secondary to bacteremia infection * Continue to trend (5) Cirrhosis of liver with ascites: Code(s): K74.60 - Unspecified cirrhosis of liver; R18.8 - Other ascites Status: Acute Assessment and Plan: * Abdomen/pelvis CT from 05/31/2024 showed moderate ascites with cirrhosis * hepatitis panel was negative * Total bili 2.1 * Liver enzymes within normal limits * Ammonia level normal * paracentesis yesterday yielded 2100 ml of yellow serous fluid * ascites fluid sent for culture and is pending * GI following (6) DVT (deep venous thrombosis): Code(s): I82.409 - Acute embolism and thrombosis of unspecified deep veins of unspecified lower extremity Status: Acute Assessment and Plan: * Doppler shown DVT * No good way to anticoagulate * will need IVC filter placed as soon as clean cultures come back * general surgery consulted for IVC filter (7) Diastolic dysfunction: Code(s): I51.89 - Other ill-defined heart diseases Status: Chronic Assessment and Plan: * Last echo reviewed from 02/27/2023 which showed a normal LV systolic function with an estimated EF of 65-70%, diastolic dysfunction noted, moderate aortic valve sclerosis moderate mitral and tricuspid valve regurgitation, mild pulmonary hypertension * Bilateral lower extremity swelling * Ultrasound doppler positive for DVT * will plan for IVC filter placement with General surgery wants clean cultures are obtained (8) Closed fracture of neck of right femur: Qualifiers: Encounter type: initial encounter Qualified Code(s): S72.001A - Fracture of unspecified part of neck of right femur, initial encounter for closed fracture Code(s): S72.001A - Fracture of unspecified part of neck of right femur, initial encounter for closed fracture Status: Acute Assessment and Plan: * S/P right bipolar hip replacement with Dr. Balbuena on 05/16/24 * Surgical incision with jennie, ecchymosis noted right thigh and lateral hip * Continue PT and OT * Recently at [place] for swing bed program for rehab * Dr. Balbuena following and plans to do a washout with possible hardware removal after IVC filter is in place * Dr. Balbuena getting aspirate of the hip today * CRP 4.6, ESR 87-- continue to trend * Continue pain control * Wound culture showing Klebsiella pneumoniae and enterococcus species on preliminary read * Blood culture showing Staphylococcus Aureus on preliminary read * New set of blood cultures obtained today (9) Diabetes: Code(s): E11.9 - Type 2 diabetes mellitus without complications Status: Chronic Assessment and Plan: * Blood sugars ranging 152-212 * Hgb A1C 5.2 * Accu checks q.6 hour * Moderate dose SSI ordered * hypoglycemic protocol in place * diabetic diet Time Spent With Patient Time with patient: Greater than 35 minutes Subjective Date/time seen: 06/05/24 08:31 Interval history: Interval History: (Copy forward from my transfer summary at [facility]) Khadra Crook is a 84 year old female with a significant past medical history of anemia, arthritis, dyslipidemia, gout, hypertension, type 2 diabetes mellitus, liver cancer, former smoker who presented to [facility] for swing bed rehab program on 05/22/2024 from [facility] after having a right bipolar hip replacement done on 05/16/2024. patient originally presented to the hospital on 05/16/2024 after sustaining a mechanical fall at home. Patient apparently was coming in from letting her dog out to go the bathroom when she tripped over the door frame causing her to fall on her right side. She immediately had pain and EMS was called. She was brought to [facility] initially with Ortho consult for a right femoral neck fracture seen on x-ray. She went to the operating room that day and had a right bipolar hip replacement done with Dr. Balbuena. patient was seen by therapy who is recommending SNF placement. The only complication after surgery is that her hemoglobin dropped on 05/18 down to 6.8 requiring a unit of blood to be given. They repeated an H&H on 05/18/2024 requiring another unit of blood to be given. Her H&H was considered stable after those 2 units. She was then transferred to [facility] for the swing bed rehab program on 05/22/2024 in stable condition. Patient started working with therapy here at [facility] and had no complications up until 05/30/2024 when the patient started to become more confused with increased pain and started passing bright red blood per rectum. She was place on Xarelto for DVT prophylaxis immediately postop and was going to continue this per protocol after having a total hip replacement However this was held on the night of of 05/30/2024. hemoglobin went from 8.5 down to 7.7 that evening and then in the morning was still stable at 7.6. Patient was not symptomatic. Her vital signs were stable including her blood pressure. This morning we went ahead and checked her labs again which shown a further drop in hemoglobin of 5.7 requiring blood transfusion. With these concerns we decided that it was in our best interest to send her to [place] for GI consult. She was given 2 units of blood at [place] with the 2nd unit infusing en route to [place]. her hemoglobin in between blood transfusions was 6.7. I spoke with Dr. Negro, (GI) who accepts consult. I then spoke with Dr. Lou, (hospitalist) who accepts patient transfer to the hospital. Lastly, I called Dr. Balbuena (orthopedic surgeon) out of courtesy to update and let him know we held Xarelto and aspirin due to GI bleeding. Dr. Balbuena said that he will see her on Monday. Patient was transferred in stable condition via EMS. 06/02/24-06/05/24: Patient was noted to have a low grade temp after arrival at [place]. She was reporting sore throat and mild non productive cough as well. We went ahead obtained Strep culture which was negative, respiratory panel was negative, chest x-ray was negative. She was given a dose of Levaquin. Abdomen/Pelvis CT shown Cirrhosis with moderate ascites, post operative changes of the right hip and diverticulosis without evidence of diverticulitis. She also presented with bilateral leg swelling, right greater than left. A venous Doppler which shown a DVT involving the right peroneal veins. Her H/H was stable from the two units of blood and GI recommending Protonix BID. She had another CT of the right lower extremity which shown a 6.5x 3.4x 18.5 cm subcutaneous hematoma and moderate ascites again noted. She had a successful paracentesis on 06/04/24 yielding 2200ml of yellow fluid which was sent for culture. Blood and wound cultures were obtained on 06/02/24.Dr. Balbuena put patient on Doxycycline preemptively while awaiting cultures. On 06/04/24 Blood cultures showing staphylococcus aureus and thigh culture showing Klebsiella pneumoniae and enterococcus species on preliminary read. She was started on Vancomycin and Rocephin 2 gm on 06/04/24 and Doxycycline was stopped. a new set of blood cultures will be obtained today as patient will need an IVC filter placed prior to going back to the OR for a washout and hardware removal with Dr. Balbuena room. General surgery was consulted for IVC filter placement. Subjective: Patient still complaining of cough today and left lower abdominal pain when she coughs. She states she has to splint the area when coughing. She states her right hip pain is under control. No other new complaints today. Labs and imaging reviewed. Review of Systems Review of Systems: All systems reviewed & are unremarkable except as noted in HPI and below Constitutional: Constitutional: Reports as per HPI and Reports no additional constitutional complaints Eyes: Eyes: Reports as per HPI and Reports no additional eye complaints ENT: Reports system reviewed and no additional complaints, except as documented and Reports as per HPI Cardiovascular: Cardiovascular: Reports as per HPI and Reports no additional cardiovascular complaints Respiratory: Respiratory: Reports as per HPI and Reports no additional respiratory complaints Gastrointestinal: Gastrointestinal: Reports as per HPI and Reports no additional gastrointestinal complaints Genitourinary: Genitourinary: Reports no additional female genitourinary complaints and Reports as per HPI Musculoskeletal: Musculoskeletal: Reports no additional musculoskeletal complaints and Reports as per HPI Integumentary/Breasts: Skin/Breast: Reports system reviewed and no additional complaints, except as docu and Reports as per HPI Neurologic: Reports system reviewed and no additional complaints, except as documented and Reports as per HPI Psychiatric: Psychiatric: Reports no additional psychiatric complaints and Reports as per HPI Exam Narrative: General: In no acute distress, well nourished Cardiac: Normal S1 and S2. No murmur, gallops or friction rubs, peripheral pulses intact. Respiratory: Lungs clear to auscultation, no adventitious lung sounds, currently on room air Gastrointestinal: soft, non-distended, non-tender, normoactive bowel sounds. : voiding without difficulty, bebo urine Extremities: moves all extremities well, 1-2+ pitting edema bilateral lower extremities right greater than left Skin: Surgical incision on right hip open the air with jennie, no redness noted, serous drainage present Neuro: Alert and oriented x3 Psych: interactive Objective Data Vital Signs Vital Signs: Vital Signs - 24 hr 06/04/24 09:25 06/04/24 14:02 06/04/24 19:54 Temperature 98.3 F 97.7 F Pulse Rate 80 66 74 Respiratory Rate 16 18 Blood Pressure 130/46 L 130/48 L Pulse Oximetry 100 96 Oxygen Delivery 06/04/24 20:24 06/04/24 20:00 06/05/24 04:06 Temperature 98.3 F Pulse Rate 74 72 Respiratory Rate 18 Blood Pressure 145/50 H Pulse Oximetry 98 Oxygen Delivery Room Air Intake/Output Intake/Output: Intake & Output 06/02/24 06/03/24 06/04/24 06/05/24 23:59 23:59 23:59 23:59 Intake Total 540 1550 1000 1190 Output Total 206 169 0240 Balance -60 1125 -1200 1190 Meds/Results Medications: Active Medications Generic Name Dose Route Start Last Admin Trade Name Freq PRN Reason Stop Dose Admin Acetaminophen 1,000 mg 06/02/24 09:00 06/04/24 17:14 Acetaminophen 500 Mg Tablet PO 1,000 mg BID JOSE Administration Hydrocodone Bitart/Acetaminophen 1 tab 12/01/24 08:12 06/05/24 05:34 Hydrocodone/Acetaminophen (*Crx) 5-325 Mg Tablet PO 1 tab Q6H PRN Administration Pain Rated 7-10 Allopurinol 100 mg 06/03/24 09:00 06/03/24 08:40 Allopurinol 100 Mg Tablet PO 100 mg [id number] JOSE Administration Benzonatate 200 mg 06/04/24 17:00 06/04/24 17:14 Benzonatate 100 Mg Capsule PO 200 mg TID JOSE Administration Calcium Carbonate 500 mg 06/02/24 09:00 06/04/24 17:14 Calcium/Vitamin D 500 Mg/5 Mcg (200 I.U.) Tablet PO 500 mg BID JOSE Administration Dextrose 12.5 gm 06/01/24 20:32 Dextrose 50% 25 Gm/50 Ml Syringe IV PUSH PRN PRN Hypoglycemia Protocol Ferrous Sulfate 325 mg 06/02/24 09:00 06/04/24 17:14 Ferrous Sulfate [address] PO 325 mg BID JOSE Administration Glucagon 1 mg 06/01/24 20:32 Glucagon For Inj 1 Mg Vial IM PRN PRN Hypoglycemia Protocol Glucose 15 gm 06/01/24 20:32 Glucose Oral Gel 15 Gm Of Glucse In 37.5 Gm Tube PO PRN PRN Hypoglycemia Protocol Guaifenesin/Dextromethorphan 10 ml 06/04/24 14:49 Guaifenesin/Dextromethorphan 10 Ml Udc PO Q4H PRN Cough Dextrose 1,000 mls @ 100 mls/hr 06/01/24 20:32 Dextrose 5% 1,000 Ml IVPB PRN PRN Hypoglycemia Protocol Dextrose/Sodium Chloride 1,000 mls @ 50 mls/hr 06/02/24 09:40 06/05/24 04:07 Dextrose 5% Sodium Chloride 0.9% IV CONT 50 mls/hr .Q20H JOSE Administration Ceftriaxone Sodium 2 gm in 100 mls @ 200 mls/hr 06/04/24 14:00 06/04/24 14:19 Rocephin 2 Gm/Ns 100 Ml IVPB 200 mls/hr Q24H JOSE Administration Vancomycin HCl 1,250 mg in 250 mls @ 166.667 mls/hr 06/05/24 08:00 Vancomycin 1,250 Mg/Ns 250 Ml IVPB Q18H JOSE Insulin Aspart 3 - 6 units 06/02/24 00:00 06/05/24 05:19 Insulin Aspart (*Bkc) 100 Units/Ml SUB-Q Not Given Q6HR [facility] Protocol Ketorolac Tromethamine 1 drop 06/01/24 20:50 06/04/24 17:14 Ketorolac 0.5% Op Soln 5 Ml Bottle LEFT EYE 1 drop TID JOSE Administration Lactulose 15 gm 06/02/24 17:00 06/04/24 17:13 Lactulose 20 Gm/30 Ml Udc PO 15 gm BID [facility] Administration Lidocaine 2 patch 06/02/24 09:00 06/04/24 10:26 Lidocaine 5% Patch TOPICAL 2 patch DAILY [facility] Administration Morphine Sulfate 2 mg 06/01/24 20:22 06/03/24 08:44 Morphine Sulfate (*Crx) 2 Mg/Ml Inj IV PUSH 2 mg Q4H PRN Administration Pain Rated 7-10 Moxifloxacin HCl 1 drop 06/01/24 21:00 06/04/24 20:25 Moxifloxacin Hcl 0.5% 3 Ml Ophth Soln LEFT EYE 1 drop Q12H [facility] Administration Polyethylene Glycol 17 gm 06/01/24 20:35 Polyethylene Glycol 3350 17 Gm Powd.Pack PO DAILY PRN Constipation Propranolol HCl 20 mg 06/01/24 21:00 06/04/24 20:24 Propranolol Hcl 20 Mg Tablet PO 20 mg Q12H JOSE Administration Rifaximin 550 mg 06/02/24 21:00 06/04/24 20:24 Rifaximin 550 Mg Tablet PO 550 mg Q12HR JOSE Administration Ropinirole HCl 0.25 mg 06/01/24 21:00 06/04/24 20:25 Ropinirole Hcl 0.25 Mg Tablet PO 0.25 mg HS [facility] Administration Senna/Docusate Sodium 2 tab 06/01/24 20:50 06/04/24 17:12 Senna/Docusate Sodium Tablet PO Not Given BID [facility] Spironolactone 100 mg 06/05/24 09:00 Spironolactone 50 Mg Tablet PO QAM JOSE Tramadol HCl 25 mg 06/02/24 08:10 06/02/24 19:51 Tramadol Hcl (*Crx) 25 Mg Tablet PO 25 mg Q4H PRN Administration Pain Rated 4-6 Radiology Results: ITS Impressions Venous Doppler Study 06/02/24 10:48 IMPRESSION: 1. Deep vein thrombosis involving the right peroneal veins. ADDENDUM: 06/02/24 1058 I discussed this result with Latoya Hernandez. Chest X-Ray 06/02/24 11:21 IMPRESSION: 1. No acute cardiopulmonary disease. Lower Extremity CT 06/02/24 12:35 IMPRESSION: 1. Subcutaneous hematoma lateral to the right hip. 2. Comminuted fracture of greater trochanter of proximal right femur. 3. Bipolar right hip hemiarthroplasty in near-anatomic alignment. 4. Mild right hip osteoarthritis. 5. Moderate volume of ascites. Paracentesis Ultrasound 06/04/24 15:04 IMPRESSION: 1. Successful ultrasound-guided paracentesis yielding 2200 mL of yellow fluid. Labs Labs: Laboratory Results - last 24 hr 06/04/24 06/04/24 06/04/24 11:42 14:42 17:12 WBC RBC Hgb Hct MCV MCH MCHC RDW Plt Count MPV Immature Gran % (Auto) Neut % (Auto) Lymph % (Auto) [place] % (Auto) Eos % (Auto) Baso % (Auto) Lymph # (Auto) [place] # (Auto) Eos # (Auto) Baso # (Auto) Abs Immat Gran (auto) Absolute Neuts (auto) Absolute Nucleated RBC Nucleated RBC % Platelet Estimate Polychromasia Anisocytosis Schistocytes Sodium Potassium Chloride Carbon Dioxide Anion Gap BUN Creatinine Estim Creat Clear Calc Estimated GFR Glucose POC Capillary Glucose 171 H 152 H Calcium Total Bilirubin AST ALT Alkaline Phosphatase Total Protein Albumin Peritoneal Source Peritoneal fluid Peritoneal Color Yellow Peritoneal Appearance Clear Peritoneal RBC < 2000 Periton Nuc Cells 54 Periton Neutrophils 2 Periton Lymphocytes 44 Peritoneal Monocytes 25 Periton Mesothelial 12 [place]iton Macrophages 12 06/04/24 06/04/24 06/05/24 23:40 23:50 04:15 WBC RBC Hgb Hct MCV MCH MCHC RDW Plt Count MPV Immature Gran % (Auto) Neut % (Auto) Lymph % (Auto) [place] % (Auto) Eos % (Auto) Baso % (Auto) Lymph # (Auto) [place] # (Auto) Eos # (Auto) Baso # (Auto) Abs Immat Gran (auto) Absolute Neuts (auto) Absolute Nucleated RBC Nucleated RBC % Platelet Estimate Polychromasia Anisocytosis Schistocytes Sodium Potassium Chloride Carbon Dioxide Anion Gap BUN Creatinine Estim Creat Clear Calc Estimated GFR Glucose POC Capillary Glucose 218 H 212 H 178 H Calcium Total Bilirubin AST ALT Alkaline Phosphatase Total Protein Albumin Peritoneal Source Peritoneal Color Peritoneal Appearance Peritoneal RBC Periton Nuc Cells Periton Neutrophils Periton Lymphocytes Peritoneal Monocytes Periton Mesothelial Periton Macrophages 06/05/24 06/05/24 05:07 05:14 WBC 3.1 L RBC 2.62 L Hgb 8.5 L Hct 26.4 L MCV 100.8 H MCH 32.4 MCHC 32.2 RDW 23.2 H Plt Count 111 L MPV 10.0 Immature Gran % (Auto) 0.3 Neut % (Auto) 57.8 Lymph % (Auto) 25.8 [place] % (Auto) 13.2 H Eos % (Auto) 2.3 Baso % (Auto) 0.6 Lymph # (Auto) 0.80 L [place] # (Auto) 0.4 Eos # (Auto) 0.1 Baso # (Auto) 0.0 Abs Immat Gran (auto) 0.01 Absolute Neuts (auto) 1.8 Absolute Nucleated RBC 0.000 Nucleated RBC % 0.0 Platelet Estimate Slightly decreased Polychromasia 1+ Anisocytosis 2+ Schistocytes None seen Sodium 133 L Potassium 3.0 L Chloride 108 H Carbon Dioxide 25 Anion Gap 0 L BUN 16 Creatinine 0.60 L Estim Creat Clear Calc 68 Estimated GFR > 60 Glucose 169 H POC Capillary Glucose 163 H Calcium 7.4 L Total Bilirubin 1.3 AST 35 ALT 11 Alkaline Phosphatase 124 Total Protein 5.0 L Albumin 2.2 L Peritoneal Source Peritoneal Color Peritoneal Appearance Peritoneal RBC Periton Nuc Cells Periton Neutrophils Periton Lymphocytes Peritoneal Monocytes Periton Mesothelial Periton Macrophages Quality VTE Prophylaxis VTE prophylaxis: mechanical ordered
--- NOTE | 2024-06-05 09:00 | P.PNOP_ITS ---
Progress Note: A&P Assessment and Plan (1) Bacteremia: Code(s): R78.81 - Bacteremia Status: Acute Assessment and Plan: Patient has bacteremia with the bipolar. She may have seeded her hip. Will discuss with the possibility of debridement. (2) Closed fracture of neck of right femur: Qualifiers: Encounter type: initial encounter Qualified Code(s): S72.001A - Fracture of unspecified part of neck of right femur, initial encounter for closed fracture Code(s): S72.001A - Fracture of unspecified part of neck of right femur, initial encounter for closed fracture Status: Acute Subjective Subjective Date/Time Seen: 06/05/24 09:00 Principal diagnosis: Bipolar, Sepsis Review of Systems Musculoskeletal: Musculoskeletal: Reports arthralgias, Reports joint swelling, Reports muscle weakness and Reports stiffness Exam Narrative: Wound Clean. Minimal pain with motion Objective Data Vital Signs Vital Signs: Vital Signs - 24 hr 06/04/24 09:25 06/04/24 14:02 06/04/24 19:54 Temperature 98.3 F 97.7 F Pulse Rate 80 66 74 Respiratory Rate 16 18 Blood Pressure 130/46 L 130/48 L Pulse Oximetry 100 96 Oxygen Delivery 06/04/24 20:24 06/04/24 20:00 06/05/24 04:06 Temperature 98.3 F Pulse Rate 74 72 Respiratory Rate 18 Blood Pressure 145/50 H Pulse Oximetry 98 Oxygen Delivery Room Air Intake/Output Intake/Output: Intake & Output 06/02/24 06/03/24 06/04/24 06/05/24 23:59 23:59 23:59 23:59 Intake Total 540 1550 1000 1190 Output Total 755 176 7705 Balance -60 1125 -1200 1190 Meds/Results Medications: Active Medications Generic Name Dose Route Start Last Admin Trade Name Freq PRN Reason Stop Dose Admin Acetaminophen 1,000 mg 06/02/24 09:00 06/04/24 17:14 Acetaminophen 500 Mg Tablet PO 1,000 mg BID JOSE Administration Hydrocodone Bitart/Acetaminophen 1 tab 06/02/24 08:12 06/05/24 05:34 Hydrocodone/Acetaminophen (*Crx) 5-325 Mg Tablet PO 1 tab Q6H PRN Administration Pain Rated 7-10 Allopurinol 100 mg 06/03/24 09:00 06/03/24 08:40 Allopurinol 100 Mg Tablet PO 100 mg [id number] JOSE Administration Benzonatate 200 mg 06/04/24 17:00 06/04/24 17:14 Benzonatate 100 Mg Capsule PO 200 mg TID JOSE Administration Calcium Carbonate 500 mg 06/02/24 09:00 06/04/24 17:14 Calcium/Vitamin D 500 Mg/5 Mcg (200 I.U.) Tablet PO 500 mg BID JOSE Administration Dextrose 12.5 gm 06/01/24 20:32 Dextrose 50% 25 Gm/50 Ml Syringe IV PUSH PRN PRN Hypoglycemia Protocol Ferrous Sulfate 325 mg 06/02/24 09:00 06/04/24 17:14 Ferrous Sulfate [address] PO 325 mg BID JOSE Administration Glucagon 1 mg 06/01/24 20:32 Glucagon For Inj 1 Mg Vial IM PRN PRN Hypoglycemia Protocol Glucose 15 gm 06/01/24 20:32 Glucose Oral Gel 15 Gm Of Glucse In 37.5 Gm Tube PO PRN PRN Hypoglycemia Protocol Guaifenesin/Dextromethorphan 10 ml 06/04/24 14:49 Guaifenesin/Dextromethorphan 10 Ml Udc PO Q4H PRN Cough Dextrose 1,000 mls @ 100 mls/hr 06/01/24 20:32 Dextrose 5% 1,000 Ml IVPB PRN PRN Hypoglycemia Protocol Dextrose/Sodium Chloride 1,000 mls @ 50 mls/hr 06/02/24 09:40 06/05/24 04:07 Dextrose 5% Sodium Chloride 0.9% IV CONT 50 mls/hr .Q20H JOSE Administration Ceftriaxone Sodium 2 gm in 100 mls @ 200 mls/hr 06/04/24 14:00 06/04/24 14:19 Rocephin 2 Gm/Ns 100 Ml IVPB 200 mls/hr Q24H JOSE Administration Vancomycin HCl 1,250 mg in 250 mls @ 166.667 mls/hr 06/05/24 08:00 Vancomycin 1,250 Mg/Ns 250 Ml IVPB Q18H JOSE Insulin Aspart 3 - 6 units 06/02/24 00:00 06/05/24 05:19 Insulin Aspart (*Bkc) 100 Units/Ml SUB-Q Not Given Q6HR [facility] Protocol Ketorolac Tromethamine 1 drop 06/01/24 20:50 06/04/24 17:14 Ketorolac 0.5% Op Soln 5 Ml Bottle LEFT EYE 1 drop TID JOSE Administration Lactulose 15 gm 06/02/24 17:00 06/04/24 17:13 Lactulose 20 Gm/30 Ml Udc PO 15 gm BID JOSE Administration Lidocaine 2 patch 06/02/24 09:00 06/04/24 10:26 Lidocaine 5% Patch TOPICAL 2 patch DAILY JOSE Administration Morphine Sulfate 2 mg 06/01/24 20:22 06/03/24 08:44 Morphine Sulfate (*Crx) 2 Mg/Ml Inj IV PUSH 2 mg Q4H PRN Administration Pain Rated 7-10 Moxifloxacin HCl 1 drop 06/01/24 21:00 06/04/24 20:25 Moxifloxacin Hcl 0.5% 3 Ml Ophth Soln LEFT EYE 1 drop Q12H JOSE Administration Polyethylene Glycol 17 gm 06/01/24 20:35 Polyethylene Glycol 3350 17 Gm Powd.Pack PO DAILY PRN Constipation Propranolol HCl 20 mg 06/01/24 21:00 06/04/24 20:24 Propranolol Hcl 20 Mg Tablet PO 20 mg Q12H JOSE Administration Rifaximin 550 mg 06/02/24 21:00 06/04/24 20:24 Rifaximin 550 Mg Tablet PO 550 mg Q12HR JOSE Administration Ropinirole HCl 0.25 mg 06/01/24 21:00 06/04/24 20:25 Ropinirole Hcl 0.25 Mg Tablet PO 0.25 mg HS JOSE Administration Senna/Docusate Sodium 2 tab 06/01/24 20:50 06/04/24 17:12 Senna/Docusate Sodium Tablet PO Not Given BID [facility] Spironolactone 100 mg 06/05/24 09:00 Spironolactone 50 Mg Tablet PO QAM [facility] Tramadol HCl 25 mg 06/02/24 08:10 06/02/24 19:51 Tramadol Hcl (*Crx) 25 Mg Tablet PO 25 mg Q4H PRN Administration Pain Rated 4-6 Radiology Results: ITS Impressions Venous Doppler Study 06/02/24 10:48 IMPRESSION: 1. Deep vein thrombosis involving the right peroneal veins. ADDENDUM: 06/02/24 1058 I discussed this result with Latoya Hernandez. Chest X-Ray 06/02/24 11:21 IMPRESSION: 1. No acute cardiopulmonary disease. Lower Extremity CT 06/02/24 12:35 IMPRESSION: 1. Subcutaneous hematoma lateral to the right hip. 2. Comminuted fracture of greater trochanter of proximal right femur. 3. Bipolar right hip hemiarthroplasty in near-anatomic alignment. 4. Mild right hip osteoarthritis. 5. Moderate volume of ascites. Paracentesis Ultrasound 06/04/24 15:04 IMPRESSION: 1. Successful ultrasound-guided paracentesis yielding 2200 mL of yellow fluid. Labs Labs: Laboratory Results - last 24 hr 06/04/24 06/04/24 06/04/24 11:42 14:42 17:12 WBC RBC Hgb Hct MCV MCH MCHC RDW Plt Count MPV Immature Gran % (Auto) Neut % (Auto) Lymph % (Auto) Giles % (Auto) Eos % (Auto) Baso % (Auto) Lymph # (Auto) Giles # (Auto) Eos # (Auto) Baso # (Auto) Abs Immat Gran (auto) Absolute Neuts (auto) Absolute Nucleated RBC Nucleated RBC % Platelet Estimate Polychromasia Anisocytosis Schistocytes Sodium Potassium Chloride Carbon Dioxide Anion Gap BUN Creatinine Estim Creat Clear Calc Estimated GFR Glucose POC Capillary Glucose 171 H 152 H Calcium Total Bilirubin AST ALT Alkaline Phosphatase Total Protein Albumin Peritoneal Source Peritoneal fluid Peritoneal Color Yellow Peritoneal Appearance Clear Peritoneal RBC < 2000 Periton Nuc Cells 54 Periton Neutrophils 2 Periton Lymphocytes 44 Peritoneal Monocytes 25 Periton Mesothelial 12 Periton Macrophages 12 06/04/24 06/04/24 06/05/24 23:40 23:50 04:15 WBC RBC Hgb Hct MCV MCH MCHC RDW Plt Count MPV Immature Gran % (Auto) Neut % (Auto) Lymph % (Auto) Giles % (Auto) Eos % (Auto) Baso % (Auto) Lymph # (Auto) Giles # (Auto) Eos # (Auto) Baso # (Auto) Abs Immat Gran (auto) Absolute Neuts (auto) Absolute Nucleated RBC Nucleated RBC % Platelet Estimate Polychromasia Anisocytosis Schistocytes Sodium Potassium Chloride Carbon Dioxide Anion Gap BUN Creatinine Estim Creat Clear Calc Estimated GFR Glucose POC Capillary Glucose 218 H 212 H 178 H Calcium Total Bilirubin AST ALT Alkaline Phosphatase Total Protein Albumin Peritoneal Source Peritoneal Color Peritoneal Appearance Peritoneal RBC Periton Nuc Cells Periton Neutrophils Periton Lymphocytes Peritoneal Monocytes Periton Mesothelial Periton Macrophages 06/05/24 06/05/24 05:07 05:14 WBC 3.1 L RBC 2.62 L Hgb 8.5 L Hct 26.4 L MCV 100.8 H MCH 32.4 MCHC 32.2 RDW 23.2 H Plt Count 111 L MPV 10.0 Immature Gran % (Auto) 0.3 Neut % (Auto) 57.8 Lymph % (Auto) 25.8 Giles % (Auto) 13.2 H Eos % (Auto) 2.3 Baso % (Auto) 0.6 Lymph # (Auto) 0.80 L Giles # (Auto) 0.4 Eos # (Auto) 0.1 Baso # (Auto) 0.0 Abs Immat Gran (auto) 0.01 Absolute Neuts (auto) 1.8 Absolute Nucleated RBC 0.000 Nucleated RBC % 0.0 Platelet Estimate Slightly decreased Polychromasia 1+ Anisocytosis 2+ Schistocytes None seen Sodium 133 L Potassium 3.0 L Chloride 108 H Carbon Dioxide 25 Anion Gap 0 L BUN 16 Creatinine 0.60 L Estim Creat Clear Calc 68 Estimated GFR > 60 Glucose 169 H POC Capillary Glucose 163 H Calcium 7.4 L Total Bilirubin 1.3 AST 35 ALT 11 Alkaline Phosphatase 124 Total Protein 5.0 L Albumin 2.2 L Peritoneal Source Peritoneal Color Peritoneal Appearance Peritoneal RBC Periton Nuc Cells Periton Neutrophils Periton Lymphocytes Peritoneal Monocytes Periton Mesothelial Periton Macrophages
--- NOTE | 2024-06-05 09:06 | WPDHPUPDATE1 ---
History and Physical Update Update Date/Time: 06/05/24 09:06 History and Physical has been reviewed, including an updated exam of the patient. There are NO changes in the patient's condition. Risks, benefits, and alternatives have been discussed and questions answered. Patient agrees to proceed with procedure. [id number]
[2024-06-05] MEDS: SPIRONOLACTONE 50 MG TABLET 100 MG PO (09:11)
[2024-06-05] MEDS: rifAXIMin 550 MG TABLET PO ×2 (09:11→20:41)
[2024-06-05 09:12] VITALS: PULSE 72
[2024-06-05] MEDS: KETOROLAC 0.5% OP SOLN 5 ML BOTTLE 1 DROP LEFT EYE ×3 (09:12→17:02)
[2024-06-05] MEDS: PROPRANOLOL HCL 20 MG TABLET PO ×2 (09:12→20:41)
[2024-06-05] MEDS: LACTULOSE 20 GM/30 ML UDC 15 GM PO ×2 (09:12→16:59)
[2024-06-05] MEDS: FERROUS SULFATE 325 MG TABLET DR PO ×2 (09:12→16:59)
[2024-06-05] MEDS: ACETAMINOPHEN 500 MG TABLET 1000 MG PO ×2 (09:12→16:59)
[2024-06-05] MEDS: CALCIUM/VITAMIN D 500 MG/5 MCG (200 I.U.) TABLET PO ×2 (09:12→16:59)
[2024-06-05] MEDS: BENZONATATE 100 MG CAPSULE 200 MG PO ×3 (09:12→16:59)
[2024-06-05] MEDS: VANCOMYCIN 1,250 MG/NS 250 ML 1,250 MG/250 ML BAG 166.67 MG IVPB (09:13)
[2024-06-05] MEDS: MOXIFLOXACIN HCL 0.5% 3 ML OPHTH SOLN 1 DROP LEFT EYE ×2 (09:13→20:42)
[2024-06-05] MEDS: allopurinoL 100 MG TABLET PO (09:16)
[2024-06-05 09:53] LABS: CRP 4.6 mg/dL (<1.0)
[2024-06-05 11:03] LABS: Erythrocyte Sedimentation Rate 87 mm/hr (0-20)
[2024-06-05 11:06] LABS: INR 1.3; Prothrombin Time 16.7 Seconds (11.1-14.7)
[2024-06-05 11:07] LABS: Partial Thromboplastin Time 38.5 Seconds (22.3-36.8)
[2024-06-05] MEDS: LIDOCAINE 5% PATCH 2 PATCH TOPICAL (11:13)
[2024-06-05 11:54] LABS: Glucose Point of Care 163 mg/dl (65-105)
[2024-06-05] MEDS: cefTRIAXone 2 GM/NS 100 ML 2 GM/100 ML BAG IVPB (13:30)
[2024-06-05 14:00] VITALS: BP 151/52; PULSE 70; RESP 16; TEMP 36.4; O2SAT 99
--- NOTE | 2024-06-05 14:08 | PM.CNGS ---
Assessment and Plan Assessment and plan (1) DVT (deep venous thrombosis): Code(s): I82.409 - Acute embolism and thrombosis of unspecified deep veins of unspecified lower extremity Status: Acute Assessment and Plan: This is a patient who is nearly 3 weeks postop following a right hip replacement that had her Xarelto for DVT prophylaxis stopped due to GI bleeding and anemia. She now has bacteremia with possible seeding of her right hip replacement and was also found to have DVT in her right peroneal veins. This is a provoked distal DVT, but Orthopedics is planning to proceed with incision and drainage with washout of the right hip and possible implant removal on Monday. She would be a high risk for propagation and they are requesting that we place an IVC filter prior to her right hip surgery. I discussed the case with Dr. 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 I discussed the procedure with the patient and her family, as well as the risks, benefits, and alternatives. She agrees with proceeding. Dr. Rodriguez will add her to the schedule and plan accordingly. Her INR has been between 1.3-1.6 this admission with a history of cirrhosis. Will repeat labs and include coags for tomorrow morning. (2) Pancytopenia: Code(s): D61.818 - Other pancytopenia Status: Acute (3) Bacteremia: Code(s): R78.81 - Bacteremia Status: Acute (4) Symptomatic anemia: Code(s): D64.9 - Anemia, unspecified Status: Acute (5) GI bleeding: Code(s): K92.2 - Gastrointestinal hemorrhage, unspecified Status: Acute (6) Cirrhosis of liver with ascites: Code(s): K74.60 - Unspecified cirrhosis of liver; R18.8 - Other ascites Status: Acute (7) History of liver cancer: Code(s): Z85.05 - Personal history of malignant neoplasm of liver Status: Acute Assessment and Plan: Hepatocellular carcinoma was diagnosed in 2017, which was treated locally and has since then been followed at [facility]. Plan I have discussed the patient's case and plan of care with Dr. Rodriguez. History of Present Illness Consult details Consult date: 06/05/24 Reason for consult: other (Placement of IVC filter) Requesting physician: Tila Major, [employer]IING TE[employer]ER Narrative: This is an 84-year-old woman with multiple medical problems, who we have been asked to see in surgical consultation for placement of an IVC filter. She suffered a femoral neck fracture following a fall in May and underwent right bipolar hip replacement on 05/16/2024. She was discharged to [facility] on Xarelto for DVT prophylaxis. She was found to be anemic and had melena stools. Her Xarelto was stopped and she was admitted to [facility] for further treatment of her anemia. She was found to have lower extremity edema and had bilateral lower extremity Dopplers that showed right peroneal vein DVT. She also had an altered mental status and fever. Blood cultures were drawn on 06/02/2024, which were positive for Staphylococcus aureus. She also has had drainage from her right hip incision with cultures growing Klebsiella pneumoniae and Enterococcus species. She also has hepatocellular carcinoma with cirrhosis. CT scan of the abdomen and pelvis on this admission showed moderate amount of ascites and she underwent paracentesis yesterday yielding a little over 2000 mL of fluid. Orthopedics is following the patient. She is also found to have a subcutaneous hematoma lateral to the right hip. The orthopedic surgeon has also ordered an ultrasound-guided aspiration of the right hip. They are planning to proceed with I&D/washout and possible implant removal of the right hip replacement on Monday. With her right lower extremity DVT and contraindication to anticoagulation with her GI bleed, they are requesting IVC filter placement prior to her right hip surgery on Monday. She has had repeat blood cultures today and is being treated with IV antibiotics. Review of Systems Review of Systems: All systems reviewed & are unremarkable except as noted in HPI and below PMFSH Past Medical History Medical History Anemia Arthritis Cirrhosis of liver with ascites Dyslipidemia Gout Hypertension Liver cancer Type 2 diabetes mellitus Surgical History Surgical History History of ablation of neoplasm of liver History of appendectomy History of gastric bypass History of hysterectomy History of laparoscopic cholecystectomy History of partial replacement of right hip joint using bipolar prosthesis (05/16/24) repair of right femoral neck fracture History of tonsillectomy Family History Family History Father Brain tumor Cerebrovascular accident Mother Cerebrovascular accident Mother Cerebrovascular accident Social History Social History Social History: Surrogate medical decision maker: Nicole Oliva ([phone]), daughter. Code status: Full code. Smoking packs per day: 1 Smoking cigarettes per day: 20.0 Years smoked: 5 Smoking pack-years: 5.00 Smoking status: Former smoker Tobacco type: cigarettes Second hand tobacco smoke exposure: No Alcohol intake: never Substance use: never Substance use type: does not use Do You Feel Safe in your Home?: Yes Lack of Transportation: No Lack of Food: Never True Current Housing: I Have Housing Concerned About Future Housing: No Difficulty Paying Gas/Electric Bills: No Difficulty Paying for Meds: No Currently Unemployed: No Education: Grade School Difficulty w/ Childcare or Family Care: No Living arrangements: alone Additional living arrangements comments: Lives home alone with her dog. She is normally independent without use of assistive devices. Spiritual care concerns: No Meds Home Medications and Allergies Home Medications Medication Instructions Recorded Confirmed Type allopurinol 100 mg tablet 100 mg PO .COMPLEX 11/06/19 06/01/24 History propranolol 20 mg tablet 20 mg PO Q12H 11/06/19 06/01/24 History aspirin 81 mg tablet 81 mg PO DAILY 06/30/22 06/01/24 History ketorolac 0.5 % eye drops 1 drp LEFT EYE TID 05/16/24 06/01/24 History moxifloxacin 0.5 % eye drops 1 drp LEFT EYE Q12H 05/16/24 06/01/24 History pantoprazole 40 mg tablet,delayed 40 mg PO Q12H 05/16/24 06/01/24 History release rivaroxaban 10 mg tablet (Xarelto) 10 mg PO DAILY #14 tabs 05/20/24 06/01/24 Rx celecoxib 200 mg capsule (Celebrex) 200 mg PO DAILY #30 caps 05/21/24 06/01/24 Rx cyclobenzaprine 10 mg tablet 10 mg PO Q8H PRN Muscle Spasm #180 05/21/24 06/01/24 Rx tabs ferrous sulfate 325 mg (65 mg 325 mg PO BID #60 tabs 05/21/24 06/01/24 Rx iron) tablet,delayed release sennosides 8.6 mg-docusate sodium 2 tab PO BID #60 tabs 05/21/24 06/01/24 Rx 50 mg tablet (Senokot-S) acetaminophen 500 mg capsule 1,000 mg PO BID 06/01/24 06/01/24 History calcium carb-ergocalciferol (vit 1 tablet PO BID 06/01/24 06/01/24 History D2) 250 mg (625 mg)-125 unit tablet gabapentin 100 mg capsule 100 mg PO BID 06/01/24 06/01/24 History hydrocodone 7.5 mg-acetaminophen 1 tablet PO Q4H PRN Pain, Severe 06/01/24 06/01/24 History 325 mg tablet insulin lispro 100 unit/mL 1 sliding scale dose subcut 06/01/24 06/01/24 History subcutaneous pen USEASDIRECTD lidocaine 5 % topical patch 2 patch topical DAILY 06/01/24 06/01/24 History polyethylene glycol 3350 17 gram 17 g PO DAILY PRN Constipation 06/01/24 06/01/24 History oral powder packet (Miralax) ropinirole 0.25 mg tablet 0.25 mg PO HS 06/01/24 06/01/24 History tramadol 25 mg tablet 25 mg PO Q4H PRN Pain, Moderate 06/01/24 06/01/24 History Allergies Allergy/AdvReac Type Severity Reaction Status Date / Time No Known Allergies Allergy Verified 05/16/24 13:37 Vital Signs Vital Signs - 24 hr 06/04/24 19:54 06/04/24 20:24 06/04/24 20:00 Temperature 97.7 F Pulse Rate 74 74 Respiratory Rate 18 Blood Pressure 130/48 L Pulse Oximetry 96 Oxygen Delivery Room Air 06/05/24 04:06 06/05/24 09:12 06/05/24 08:00 Temperature 98.3 F Pulse Rate 72 72 Respiratory Rate 18 Blood Pressure 145/50 H Pulse Oximetry 98 Oxygen Delivery Room Air Exam Const: General: comfortable and no acute distress Nutritional Appearance: overweight Orientation/consciousness: patient oriented x3 HENMT: Head: normocephalic and atraumatic Ears: hearing grossly normal bilaterally Mouth: Yes moist mucous membranes Eyes: General: appearance normal, both eyes and all related structures Pupils: Equal, round and reactive pupils present Neck: Neck: normal visual inspection and full ROM Resp: Effort & Inspection: no respiratory distress Auscultation: clear to auscultation bilaterally Cardio: Rate: regular rate Rhythm: regular rhythm Heart sounds: S1 normal heart sound present and S2 normal heart sound present Peripheral pulses: Peripheral pulses 2+ throughout GI: Inspection: non-distended and obesity GI Palp: Yes Soft to palpation, No Tenderness to palpation present (GI), No Guarding due to palpation present (GI) and No Rebound tenderness present Auscultation: normal bowel sounds Other: Bilateral groins with barrier cream and mild abelardo dermatitis to the right lateral skin fold beneath her pannus. Skin: General skin exam: pallor Neuro: General: moves all extremities and no focal motor deficits Speech: normal speech Extrem: General: normal to inspection, capillary refill normal and edema bilateral (lower extremities) Right lower extremity: foot Details: vascular exam Details: dorsalis pedis pulse present (With Doppler), posterior tibial pulse present (With Doppler) and normal capillary refill Left lower extremity: foot Details: vascular exam Details: dorsalis pedis pulse present and posterior tibial pulse present Psych: Mental Status: mental status grossly normal Attitude: cooperative Insight: Good insight present (Psych) Judgement: Good judgement present (Psych) Results Labs 06/05/24 05:07 06/05/24 05:07 Labs: Abnormal lab results 06/04/24 06/04/24 06/04/24 Range/Units 17:12 23:40 23:50 WBC (4.5-10.0) K/mm3 RBC (4.2-5.4) M/mm3 Hgb (12.0-15.0) g/dL Hct (37.0-47.0) % MCV (80-100) fl RDW (11.5-14.5) % Plt Count (150-375) k/mm3 Wallace % (Auto) (2.6-8.5) % Lymph # (Auto) (0.9-3.2) K/mm3 ESR (0-20) mm/hr PT (11.1-14.7) Seconds APTT (22.3-36.8) Seconds Sodium (137-145) mmol/L Potassium (3.4-5.0) mmol/L Chloride (98-107) mmol/L Anion Gap (4-12) mmol/L Creatinine (0.7-1.0) mg/dL Glucose (65-110) mg/dL POC Capillary Glucose 152 H 218 H 212 H (65-105) mg/dl Calcium (8.4-10.2) mg/dL C-Reactive Protein (<1.0) mg/dL Total Protein (6.3-8.2) g/dL Albumin (3.5-5.1) g/dL 06/05/24 06/05/24 06/05/24 Range/Units 04:15 05:01 05:07 WBC 3.1 L (4.5-10.0) K/mm3 RBC 2.62 L (4.2-5.4) M/mm3 Hgb 8.5 L (12.0-15.0) g/dL Hct 26.4 L (37.0-47.0) % MCV 100.8 H (80-100) fl RDW 23.2 H (11.5-14.5) % Plt Count 111 L (150-375) k/mm3 Wallace % (Auto) 13.2 H (2.6-8.5) % Lymph # (Auto) 0.80 L (0.9-3.2) K/mm3 ESR (0-20) mm/hr PT (11.1-14.7) Seconds APTT (22.3-36.8) Seconds Sodium 133 L (137-145) mmol/L Potassium 3.0 L (3.4-5.0) mmol/L Chloride 108 H (98-107) mmol/L Anion Gap 0 L (4-12) mmol/L Creatinine 0.60 L (0.7-1.0) mg/dL Glucose 169 H (65-110) mg/dL POC Capillary Glucose 178 H (65-105) mg/dl Calcium 7.4 L (8.4-10.2) mg/dL C-Reactive Protein 4.6 H (<1.0) mg/dL Total Protein 5.0 L (6.3-8.2) g/dL Albumin 2.2 L (3.5-5.1) g/dL 06/05/24 06/05/24 06/05/24 Range/Units 05:14 10:01 10:27 WBC (4.5-10.0) K/mm3 RBC (4.2-5.4) M/mm3 Hgb (12.0-15.0) g/dL Hct (37.0-47.0) % MCV (80-100) fl RDW (11.5-14.5) % Plt Count (150-375) k/mm3 Wallace % (Auto) (2.6-8.5) % Lymph # (Auto) (0.9-3.2) K/mm3 ESR 87 H (0-20) mm/hr PT 16.7 H (11.1-14.7) Seconds APTT 38.5 H (22.3-36.8) Seconds Sodium (137-145) mmol/L Potassium (3.4-5.0) mmol/L Chloride (98-107) mmol/L Anion Gap (4-12) mmol/L Creatinine (0.7-1.0) mg/dL Glucose (65-110) mg/dL POC Capillary Glucose 163 H (65-105) mg/dl Calcium (8.4-10.2) mg/dL C-Reactive Protein (<1.0) mg/dL Total Protein (6.3-8.2) g/dL Albumin (3.5-5.1) g/dL 06/05/24 Range/Units 11:51 WBC (4.5-10.0) K/mm3 RBC (4.2-5.4) M/mm3 Hgb (12.0-15.0) g/dL Hct (37.0-47.0) % MCV (80-100) fl RDW (11.5-14.5) % Plt Count (150-375) k/mm3 Wallace % (Auto) (2.6-8.5) % Lymph # (Auto) (0.9-3.2) K/mm3 ESR (0-20) mm/hr PT (11.1-14.7) Seconds APTT (22.3-36.8) Seconds Sodium (137-145) mmol/L Potassium (3.4-5.0) mmol/L Chloride (98-107) mmol/L Anion Gap (4-12) mmol/L Creatinine (0.7-1.0) mg/dL Glucose (65-110) mg/dL POC Capillary Glucose 163 H (65-105) mg/dl Calcium (8.4-10.2) mg/dL C-Reactive Protein (<1.0) mg/dL Total Protein (6.3-8.2) g/dL Albumin (3.5-5.1) g/dL Diabetes panel 06/05/24 Range/Units 05:07 Sodium 133 L (137-145) mmol/L Potassium 3.0 L (3.4-5.0) mmol/L Chloride 108 H (98-107) mmol/L Carbon Dioxide 25 (22-30) mmol/L BUN 16 (7-17) mg/dL Creatinine 0.60 L (0.7-1.0) mg/dL Glucose 169 H (65-110) mg/dL Calcium 7.4 L (8.4-10.2) mg/dL AST 35 (14-36) U/L ALT 11 (6-35) U/L Alkaline Phosphatase 124 (38-126) U/L Total Protein 5.0 L (6.3-8.2) g/dL Albumin 2.2 L (3.5-5.1) g/dL Calcium panel 06/05/24 Range/Units 05:07 Calcium 7.4 L (8.4-10.2) mg/dL Albumin 2.2 L (3.5-5.1) g/dL Pituitary panel 06/05/24 Range/Units 05:07 Sodium 133 L (137-145) mmol/L Potassium 3.0 L (3.4-5.0) mmol/L Chloride 108 H (98-107) mmol/L Carbon Dioxide 25 (22-30) mmol/L BUN 16 (7-17) mg/dL Creatinine 0.60 L (0.7-1.0) mg/dL Glucose 169 H (65-110) mg/dL Calcium 7.4 L (8.4-10.2) mg/dL Adrenal panel 06/05/24 Range/Units 05:07 Sodium 133 L (137-145) mmol/L Potassium 3.0 L (3.4-5.0) mmol/L Chloride 108 H (98-107) mmol/L Carbon Dioxide 25 (22-30) mmol/L BUN 16 (7-17) mg/dL Creatinine 0.60 L (0.7-1.0) mg/dL Glucose 169 H (65-110) mg/dL Calcium 7.4 L (8.4-10.2) mg/dL Total Bilirubin 1.3 (0.2-1.3) mg/dL AST 35 (14-36) U/L ALT 11 (6-35) U/L Alkaline Phosphatase 124 (38-126) U/L Total Protein 5.0 L (6.3-8.2) g/dL Albumin 2.2 L (3.5-5.1) g/dL All other labs normal. Imaging Additional studies: ITS Impressions Venous Doppler Study 06/02/24 10:48 IMPRESSION: 1. Deep vein thrombosis involving the right peroneal veins. ADDENDUM: 06/02/24 1058 I discussed this result with Latoya Hernandez. Chest X-Ray 06/02/24 11:21 IMPRESSION: 1. No acute cardiopulmonary disease. Lower Extremity CT 06/02/24 12:35 IMPRESSION: 1. Subcutaneous hematoma lateral to the right hip. 2. Comminuted fracture of greater trochanter of proximal right femur. 3. Bipolar right hip hemiarthroplasty in near-anatomic alignment. 4. Mild right hip osteoarthritis. 5. Moderate volume of ascites. Paracentesis Ultrasound 06/04/24 15:04 IMPRESSION: 1. Successful ultrasound-guided paracentesis yielding 2200 mL of yellow fluid.
--- NOTE | 2024-06-05 16:39 | WPDGIPROGNO ---
Progress Note: A&P Assessment and Plan (1) Pancytopenia: Code(s): D61.818 - Other pancytopenia Status: Acute (2) Cirrhosis of liver with ascites: Code(s): K74.60 - Unspecified cirrhosis of liver; R18.8 - Other ascites Status: Acute Assessment and Plan: The patient is currently undergoing a drainage of her right hip area and possible hip replacement in the operating room at this moment. The plan is to place an inferior vena cava filter to prevent pulmonary embolus from her existing deep venous thrombosis. From our specialty standpoint, she is stable, not exhibiting signs of acute bleeding, and ascitic fluid tapped yesterday shows no evidence of infection. We just started low-dose diuretics, only spironolactone 1 mg q.d.. Will keep following urine output and electrolytes. Subjective Date/time seen: 06/05/24 16:39 Objective Data Vital Signs Vital Signs: Vital Signs - 24 hr 06/04/24 19:54 06/04/24 20:24 06/04/24 20:00 Temperature 97.7 F Pulse Rate 74 74 Respiratory Rate 18 Blood Pressure 130/48 L Pulse Oximetry 96 Oxygen Delivery Room Air 06/05/24 04:06 06/05/24 09:12 06/05/24 08:00 Temperature 98.3 F Pulse Rate 72 72 Respiratory Rate 18 Blood Pressure 145/50 H Pulse Oximetry 98 Oxygen Delivery Room Air 06/05/24 14:00 Temperature 97.6 F Pulse Rate 70 Respiratory Rate 16 Blood Pressure 151/52 H Pulse Oximetry 99 Oxygen Delivery Intake/Output Intake/Output: Intake & Output 06/02/24 06/03/24 06/04/24 06/05/24 23:59 23:59 23:59 23:59 Intake Total 540 1550 1100 1290 Output Total 881 160 0593 Balance -60 1125 -1100 1290 Meds/Results Medications: Active Medications Generic Name Dose Route Start Last Admin Trade Name Freq PRN Reason Stop Dose Admin Acetaminophen 1,000 mg 06/02/24 09:00 06/05/24 09:12 Acetaminophen 500 Mg Tablet PO 1,000 mg BID JOSE Administration Hydrocodone Bitart/Acetaminophen 1 tab 06/02/24 08:12 06/05/24 05:34 Hydrocodone/Acetaminophen (*Crx) 5-325 Mg Tablet PO 1 tab Q6H PRN Administration Pain Rated 7-10 Allopurinol 100 mg 06/03/24 09:00 06/05/24 09:16 Allopurinol 100 Mg Tablet PO 100 mg [email or web address] JOSE Administration Benzonatate 200 mg 06/04/24 17:00 06/05/24 13:31 Benzonatate 100 Mg Capsule PO 200 mg TID JOSE Administration Calcium Carbonate 500 mg 06/02/24 09:00 06/05/24 09:12 Calcium/Vitamin D 500 Mg/5 Mcg (200 I.U.) Tablet PO 500 mg BID JOSE Administration Dextrose 12.5 gm 06/01/24 20:32 Dextrose 50% 25 Gm/50 Ml Syringe IV PUSH PRN PRN Hypoglycemia Protocol Ferrous Sulfate 325 mg 06/02/24 09:00 06/05/24 09:12 Ferrous Sulfate [address] PO 325 mg BID JOSE Administration Glucagon 1 mg 06/01/24 20:32 Glucagon For Inj 1 Mg Vial IM PRN PRN Hypoglycemia Protocol Glucose 15 gm 06/01/24 20:32 Glucose Oral Gel 15 Gm Of Glucse In 37.5 Gm Tube PO PRN PRN Hypoglycemia Protocol Guaifenesin/Dextromethorphan 10 ml 06/04/24 14:49 Guaifenesin/Dextromethorphan 10 Ml Udc PO Q4H PRN Cough Dextrose 1,000 mls @ 100 mls/hr 06/01/24 20:32 Dextrose 5% 1,000 Ml IVPB PRN PRN Hypoglycemia Protocol Dextrose/Sodium Chloride 1,000 mls @ 50 mls/hr 06/02/24 09:40 06/05/24 04:07 Dextrose 5% Sodium Chloride 0.9% IV CONT 50 mls/hr .Q20H JOSE Administration Ceftriaxone Sodium 2 gm in 100 mls @ 200 mls/hr 06/04/24 14:00 06/05/24 13:30 Rocephin 2 Gm/Ns 100 Ml IVPB 200 mls/hr Q24H JOSE Administration Vancomycin HCl 1,250 mg in 250 mls @ 166.667 mls/hr 06/05/24 08:00 06/05/24 09:13 Vancomycin 1,250 Mg/Ns 250 Ml IVPB 166.67 mls/hr Q18H JOSE Administration Insulin Aspart 3 - 6 units 06/02/24 00:00 06/05/24 11:59 Insulin Aspart (*Bkc) 100 Units/Ml SUB-Q Not Given Q6HR [facility] Protocol Ketorolac Tromethamine 1 drop 06/01/24 20:50 06/05/24 13:31 Ketorolac 0.5% Op Soln 5 Ml Bottle LEFT EYE 1 drop TID JOSE Administration Lactulose 15 gm 06/02/24 17:00 06/05/24 09:12 Lactulose 20 Gm/30 Ml Udc PO 15 gm BID JOSE Administration Lidocaine 2 patch 06/02/24 09:00 06/05/24 11:13 Lidocaine 5% Patch TOPICAL 2 patch DAILY JOSE Administration Morphine Sulfate 2 mg 06/01/24 20:22 06/03/24 08:44 Morphine Sulfate (*Crx) 2 Mg/Ml Inj IV PUSH 2 mg Q4H PRN Administration Pain Rated 7-10 Moxifloxacin HCl 1 drop 06/01/24 21:00 06/05/24 09:13 Moxifloxacin Hcl 0.5% 3 Ml Ophth Soln LEFT EYE 1 drop Q12H JOSE Administration Polyethylene Glycol 17 gm 06/01/24 20:35 Polyethylene Glycol 3350 17 Gm Powd.Pack PO DAILY PRN Constipation Propranolol HCl 20 mg 06/01/24 21:00 06/05/24 09:12 Propranolol Hcl 20 Mg Tablet PO 20 mg Q12H [facility] Administration Rifaximin 550 mg 06/02/24 21:00 06/05/24 09:11 Rifaximin 550 Mg Tablet PO 550 mg Q12HR JOSE Administration Ropinirole HCl 0.25 mg 06/01/24 21:00 06/04/24 20:25 Ropinirole Hcl 0.25 Mg Tablet PO 0.25 mg HS [facility] Administration Senna/Docusate Sodium 2 tab 06/01/24 20:50 06/05/24 09:13 Senna/Docusate Sodium Tablet PO Not Given BID [facility] Spironolactone 100 mg 06/05/24 09:00 06/05/24 09:11 Spironolactone 50 Mg Tablet PO 100 mg QAM [facility] Administration Tramadol HCl 25 mg 06/02/24 08:10 06/02/24 19:51 Tramadol Hcl (*Crx) 25 Mg Tablet PO 25 mg Q4H PRN Administration Pain Rated 4-6 Radiology Results: ITS Impressions Venous Doppler Study 06/02/24 10:48 IMPRESSION: 1. Deep vein thrombosis involving the right peroneal veins. ADDENDUM: 06/02/24 1058 I discussed this result with Latoya Hernandez. Chest X-Ray 06/02/24 11:21 IMPRESSION: 1. No acute cardiopulmonary disease. Lower Extremity CT 06/02/24 12:35 IMPRESSION: 1. Subcutaneous hematoma lateral to the right hip. 2. Comminuted fracture of greater trochanter of proximal right femur. 3. Bipolar right hip hemiarthroplasty in near-anatomic alignment. 4. Mild right hip osteoarthritis. 5. Moderate volume of ascites. Paracentesis Ultrasound 06/04/24 15:04 IMPRESSION: 1. Successful ultrasound-guided paracentesis yielding 2200 mL of yellow fluid. Labs Labs: Laboratory Results - last 24 hr 06/04/24 06/04/24 06/04/24 17:12 23:40 23:50 WBC RBC Hgb Hct MCV MCH MCHC RDW Plt Count MPV Immature Gran % (Auto) Neut % (Auto) Lymph % (Auto) Barber % (Auto) Eos % (Auto) Baso % (Auto) Lymph # (Auto) Barber # (Auto) Eos # (Auto) Baso # (Auto) Abs Immat Gran (auto) Absolute Neuts (auto) Absolute Nucleated RBC Nucleated RBC % Platelet Estimate Polychromasia Anisocytosis Schistocytes ESR PT INR APTT Sodium Potassium Chloride Carbon Dioxide Anion Gap BUN Creatinine Estim Creat Clear Calc Estimated GFR Glucose POC Capillary Glucose 152 H 218 H 212 H Calcium Total Bilirubin AST ALT Alkaline Phosphatase C-Reactive Protein Total Protein Albumin 06/05/24 06/05/24 06/05/24 04:15 05:01 05:07 WBC 3.1 L RBC 2.62 L Hgb 8.5 L Hct 26.4 L MCV 100.8 H MCH 32.4 MCHC 32.2 RDW 23.2 H Plt Count 111 L MPV 10.0 Immature Gran % (Auto) 0.3 Neut % (Auto) 57.8 Lymph % (Auto) 25.8 Barber % (Auto) 13.2 H Eos % (Auto) 2.3 Baso % (Auto) 0.6 Lymph # (Auto) 0.80 L Barber # (Auto) 0.4 Eos # (Auto) 0.1 Baso # (Auto) 0.0 Abs Immat Gran (auto) 0.01 Absolute Neuts (auto) 1.8 Absolute Nucleated RBC 0.000 Nucleated RBC % 0.0 Platelet Estimate Slightly decreased Polychromasia 1+ Anisocytosis 2+ Schistocytes None seen ESR PT INR APTT Sodium 133 L Potassium 3.0 L Chloride 108 H Carbon Dioxide 25 Anion Gap 0 L BUN 16 Creatinine 0.60 L Estim Creat Clear Calc 68 Estimated GFR > 60 Glucose 169 H POC Capillary Glucose 178 H Calcium 7.4 L Total Bilirubin 1.3 AST 35 ALT 11 Alkaline Phosphatase 124 C-Reactive Protein 4.6 H Total Protein 5.0 L Albumin 2.2 L 06/05/24 06/05/24 06/05/24 05:14 10:01 10:27 WBC RBC Hgb Hct MCV MCH MCHC RDW Plt Count MPV Immature Gran % (Auto) Neut % (Auto) Lymph % (Auto) Barber % (Auto) Eos % (Auto) Baso % (Auto) Lymph # (Auto) Barber # (Auto) Eos # (Auto) Baso # (Auto) Abs Immat Gran (auto) Absolute Neuts (auto) Absolute Nucleated RBC Nucleated RBC % Platelet Estimate Polychromasia Anisocytosis Schistocytes ESR 87 H PT 16.7 H INR 1.3 APTT 38.5 H Sodium Potassium Chloride Carbon Dioxide Anion Gap BUN Creatinine Estim Creat Clear Calc Estimated GFR Glucose POC Capillary Glucose 163 H Calcium Total Bilirubin AST ALT Alkaline Phosphatase C-Reactive Protein Total Protein Albumin 06/05/24 11:51 WBC RBC Hgb Hct MCV MCH MCHC RDW Plt Count MPV Immature Gran % (Auto) Neut % (Auto) Lymph % (Auto) Barber % (Auto) Eos % (Auto) Baso % (Auto) Lymph # (Auto) Barber # (Auto) Eos # (Auto) Baso # (Auto) Abs Immat Gran (auto) Absolute Neuts (auto) Absolute Nucleated RBC Nucleated RBC % Platelet Estimate Polychromasia Anisocytosis Schistocytes ESR PT INR APTT Sodium Potassium Chloride Carbon Dioxide Anion Gap BUN Creatinine Estim Creat Clear Calc Estimated GFR Glucose POC Capillary Glucose 163 H Calcium Total Bilirubin AST ALT Alkaline Phosphatase C-Reactive Protein Total Protein Albumin
[2024-06-05 18:28] LABS: Glucose Point of Care 162 mg/dl (65-105)
[2024-06-05 20:26] VITALS: PULSE 82; RESP 16; TEMP 36.6; O2SAT 98
[2024-06-05] MEDS: rOPINIRole HCL 0.25 MG TABLET PO (20:40)
[2024-06-05 20:41] VITALS: PULSE 70
[2024-06-05 23:46] LABS: Glucose Point of Care 172 mg/dl (65-105)
[2024-06-06] VITALS (8 sets, daily range): BP systolic 135–165; BP diastolic 47–75; PULSE 71–77; RESP 14–18; TEMP 36.4–36.5; O2SAT 98–100
[2024-06-06 01:04] LABS: Vancomycin Trough 14.9 ug/mL (10.0-20.0)
[2024-06-06] MEDS: VANCOMYCIN 1,250 MG/NS 250 ML 1,250 MG/250 ML BAG 166.67 MG IVPB ×2 (02:14→21:04)
[2024-06-06] MEDS: DEXTROSE 5%/0.9% SOD CHL 1,000 ML 50 ML IV CONT (02:16)
[2024-06-06 05:48] LABS: Glucose Point of Care 160 mg/dl (65-105)
[2024-06-06 06:19] LABS: Basophils Percent Auto 0.3 % (0.2-1.2); Eosinophils Absolute Auto 0.1 K/mm3 (0-0.3); Eosinophils Percent Auto 3.1 % (0-4.4); Hemoglobin 8.5 g/dL (12.0-15.0); Lymphocytes Absolute Auto 0.91 K/mm3 (0.9-3.2); Lymphocytes Percent Auto 28.2 % (18.3-44.2); Mean Corpuscular HGB Conc 31.5 g/dl (32-36); Mean Corpuscular Hemoglobin 31.8 pg (26-34); Mean Corpuscular Volume 101.1 fl (80-100); Mean Platelet Volume 10.2 fl (7.4-10.4); Monocytes Absolute Auto 0.4 K/mm3 (0.1-0.6); Monocytes Percent Auto 10.8 % (2.6-8.5); Neutrophils Absolute Auto 1.9 K/mm3 (1.3-6.7); Neutrophils Percent Auto 57.6 % (45.5-73.1); Platelet Count Result 129 k/mm3 (150-375); Red Blood Count 2.67 M/mm3 (4.2-5.4); Red Cell Distribution Width 22.9 % (11.5-14.5); White Blood Count 3.2 K/mm3 (4.5-10.0)
[2024-06-06 06:42] LABS: Alanine Aminotransferase 11 U/L (6-35); Albumin Level 2.2 g/dL (3.5-5.1); Alkaline Phosphatase 121 U/L (38-126); Anion Gap 2 mmol/L (4-12); Aspartate Amino Transferase 31 U/L (14-36); Blood Urea Nitrogen 14 mg/dL (7-17); CRP 3.2 mg/dL (<1.0); Calcium 7.6 mg/dL (8.4-10.2); Carbon Dioxide 24 mmol/L (22-30); Chloride 108 mmol/L (98-107); Estimated CRCL calculation 67 ml/min; Estimated Glomerular Filt Rate > 60; Glucose 148 mg/dL (65-110); Potassium 3.2 mmol/L (3.4-5.0); Sodium 134 mmol/L (137-145)
[2024-06-06 07:22] LABS: INR 1.3; Prothrombin Time 16.9 Seconds (11.1-14.7)
[2024-06-06 07:23] LABS: Partial Thromboplastin Time 37.1 Seconds (22.3-36.8)
[2024-06-06 09:28] LABS: Anisocytosis 1+; Hypochromasia 1+; Platelet Estimate Slightly Decreased (Adequate); Schistocytes None Seen
[2024-06-06 10:14] LABS: Basophils Absolute Manual 2.27 K/mm3 (0.0-0.1); Erythrocyte Sedimentation Rate 71 mm/hr (0-20)
--- NOTE | 2024-06-06 10:17 | P.OP_ITS ---
Procedure Note - Detailed Date of Procedure 06/06/24 Pre-op Diagnosis Right lower extremity DVT, GI bleeding, infected right hip prosthesis. Post-op Diagnosis Same Procedure Performed Placement of inferior vena cava Suni filter via left femoral vein approach with intraoperative fluoroscopy Surgeon Andriy Rodriguez MD Anesthesia Local Indications Patient is an 84-year-old female who 3 weeks ago had a right hip replacement. For she that right hip is now infected. She will need to have the prosthesis removed and unfortunate she now has a right lower extremity DVT. She was not able to be anticoagulated since she had GI bleeding and so Dr. Balbuena her orthopedic surgeon has requested placement of an IVC filter prior to his surgery to remove the infected right hip prosthesis. Findings None significant Description of Procedure After informed consent was obtained patient was brought to the cardiac microbiology lab technician angio suite where she was placed onto the angio table and then the lower abdomen and bilateral groin regions were then prepped and draped usual sterile fashion. A time-out was then performed correctly identifying the patient as well as procedure to be performed. She was not given any antibiotics. I then approach placement of the filter via the left common femoral vein as she had a rash in the right groin region. 1% lidocaine without epinephrine was injected just medial to the palpable left common femoral arterial pulse. A long 18gauge spinal needle was then used to cannulate the left common femoral vein with prompt return of dark venous appearing blood. A long guidewire was then advanc ed through the needle into the left femoral vein subsequently up into the inferior vena cava via the left iliac vein. Intraoperative fluoroscopy was used to confirm proper placement the tip of the guidewire in the proximal inferior vena cava. I then enlarged the skin opening at the insertion site of the guidewire with a scalpel and then advanced serial dilators over the guidewire to enlarge the venotomy. Lastly the dilator and deploying sheath of the O'Brien IVC filter was advanced the guidewire and into the inferior vena cava. Intraoperative fluoroscopy again was used to confirm proper placement of the tip of the deploying sheath. The guidewire and the dilator were removed leaving the sheath in place. I then performed a venogram with injection of 20cc of half- strength IV contrast. Was able to identify the orifice to the right renal vein at approximately the L1 level. I pulled back on the the plug sheath until the tip was at the level of the L3 vertebral body. At this point the O'Brien inferior vena cava filter was placed into the deployment sheath and then pushed with the deploying tyshawn through the sheath into the inferior vena cava. It was deployed spanning the lower portion of the L2 vertebral body and the L3 vertebral body. The patient had a fairly narrow inferior vena cava in this area and so the filter deployed with a little bit of lateral tilt but the filter span shanita completely across the lumen of the inferior vena cava. The filter was deployed approximately 2 vertebral body levels above bifurcation of the iliac veins on the completion venogram. A total of 50cc of IV contrast dye was used during the procedure. I then removed the sheath from the left femoral vein and held pressure on the area to achieve hemostasis. I then closed the small skin incision utilizing a 4-0 Vicryl suture. Skin glue was then used to seal the incision. The patient tolerated the procedure well no complications. All sponges, needles, and instrument counts were correct at the end procedure. EBL was _25__cc. The patient was awakened and taken to recovery in stable and satisfactory condition. Implants Bard Suni vena cava filter. Estimated Blood Loss 25 Urine Output 600 Drains No Packing No Pathology None sent Complications No immediate complications Condition Stable Disposition PACU [facility] Billing Surgery - Charge Forward: Surgery Billing
[2024-06-06] MEDS: SPIRONOLACTONE 50 MG TABLET 100 MG PO (10:36)
[2024-06-06] MEDS: FERROUS SULFATE 325 MG TABLET DR PO ×2 (10:36→17:58)
[2024-06-06] MEDS: rifAXIMin 550 MG TABLET PO ×2 (10:37→21:01)
[2024-06-06] MEDS: CALCIUM/VITAMIN D 500 MG/5 MCG (200 I.U.) TABLET PO ×2 (10:38→17:58)
[2024-06-06] MEDS: BENZONATATE 100 MG CAPSULE 200 MG PO ×3 (10:38→17:57)
[2024-06-06] MEDS: PROPRANOLOL HCL 20 MG TABLET PO ×2 (10:39→21:01)
[2024-06-06] MEDS: POTASSIUM CHLORIDE 20 MEQ ER TABLET 40 MEQ PO (10:39)
[2024-06-06] MEDS: ACETAMINOPHEN 500 MG TABLET 1000 MG PO ×2 (10:40→17:57)
[2024-06-06] MEDS: LACTULOSE 20 GM/30 ML UDC 15 GM PO ×2 (10:40→17:59)
[2024-06-06] MEDS: HYDROcodone/acetaminophen (*CRX) 5-325 MG TABLET 1 TAB PO (10:40)
[2024-06-06] MEDS: MOXIFLOXACIN HCL 0.5% 3 ML OPHTH SOLN 1 DROP LEFT EYE ×2 (10:41→21:02)
[2024-06-06] MEDS: KETOROLAC 0.5% OP SOLN 5 ML BOTTLE 1 DROP LEFT EYE ×3 (10:41→17:58)
--- NOTE | 2024-06-06 11:44 | P.PNIM_ITS ---
Progress Note: A&P Assessment and Plan (1) Symptomatic anemia: Code(s): D64.9 - Anemia, unspecified Status: Acute Assessment and Plan: History of anemia at baseline. She had dark tarry stools at [facility] and Hgb dropped to 5.7. She received 2 units of PRBCs History of internal hemorrhoids and was on Xarelto for DVT prophylaxis postoperatively; Xarelto stopped Also noted to have SQ hematoma measuing 18.5x 6.5cm lateral to the right hip. Hgb climbed to the 8 range and remaining stable Acute blood loss anemia from GI source and from post-op hematoma. GI and Ortho following. Endoscopy being considered. Continue Protonix b.i.d. (2) Bacteremia: Code(s): R78.81 - Bacteremia Status: Acute Assessment and Plan: Patient had BCx drawn on admission. No fevers and WBC was normal. CXR clear. UA clear. BCx 06/02 growing MSSA both aerobic sets. Wound culture showing Klebsiella pneumoniae that is olmos sensitive and Enterococcus species sensitive to Amp and Vanc Repeat BCx 06/05 NGTD Had 1 dose of Levaquin on 06/02 and placed on doxycycline on 06/03; Changed to vancomycin and Rocephin 2 g 06/04 after discussing case with ID pharmacy Rt hip hematoma was aspirated 45ml of red, opaque fluid and cultured. Gram stain showing no organisms or WBC. Rt hip joint aspiration yielding no fluid. Source unclear but suspect from hematoma from recent hip surgery. Follow up on culture results. Continue current IV abx. Discussed with pharm ID. (3) Melena: Code(s): K92.1 - Melena Status: Acute Assessment and Plan: As above (4) Pancytopenia: Code(s): D61.818 - Other pancytopenia Status: Acute Assessment and Plan: WBC normal on admission but has dropped to 3200. This is not uncommon for this patietn and probably related to her cirrhosis. Anemia as mentioned above. Plt count was normal but dropped to 77K just prior to admission. Repeat plt count better. Probably related to splenomegaly, cirrhosis, current infection and sequesration. Monitor (5) Cirrhosis of liver with ascites: Code(s): K74.60 - Unspecified cirrhosis of liver; R18.8 - Other ascites Status: Acute Assessment and Plan: Abdomen/pelvis CT from 05/31/2024 showed moderate ascites with cirrhosis and splenomegaly. Hepatitis panel was negative. Liver enzymes within normal limits, TBili normal. Ammonia level negative Paracentesis 06/04 yielded 2200 ml of yellow fluid Ascitic fluid Cx NGTD Continue Rifaximin and lactulose. Continue Spironolactone. GI following (6) DVT (deep venous thrombosis): Code(s): I82.409 - Acute embolism and thrombosis of unspecified deep veins of unspecified lower extremity Status: Acute Assessment and Plan: Patient noted to have lower extremity edema. Doppler showing right peroneal veins DVT. Not able to anticoagulate so Gen Surg consulted. Patietn underwent IVC filter placement earlier today. Start anticoagulation when able (7) Diastolic dysfunction: Code(s): I51.89 - Other ill-defined heart diseases Status: Chronic Assessment and Plan: Echo 02/27/23 showed a normal LV systolic function with an estimated EF of 65- 70%, diastolic dysfunction noted, moderate aortic valve sclerosis moderate mitral and tricuspid valve regurgitation, mild pulmonary hypertension Consider Lasix (8) Closed fracture of neck of right femur: Qualifiers: Encounter type: initial encounter Qualified Code(s): S72.001A - Fracture of unspecified part of neck of right femur, initial encounter for closed fracture Code(s): S72.001A - Fracture of unspecified part of neck of right femur, initial encounter for closed fracture Status: Acute Assessment and Plan: Patient with right femur fx S/P right bipolar hip replacement with Dr. Balbuena on 05/16/24 * Surgical incision with jennie, ecchymosis noted right thigh and lateral hip * Recently at [facility] for swing bed program for rehab * Dr. Balbuena following * Continue pain control * Continue PT and OT (9) Diabetes: Code(s): E11.9 - Type 2 diabetes mellitus without complications Status: Chronic Assessment and Plan: A1C 5.2. The patient's blood glucose was reviewed on 06/06 Glucose remains reasonably well controlled. Continue AccuCheks covering with sliding scale. Hypoglycemia protocol available as needed. Continue to monitor Plan DVT prophylaxis - IVC filter Code status - full Subjective Date/time seen: 06/06/24 11:44 Interval history: 84yo female with anemia, arthritis, dyslipidemia, gout, HTN, DM, liver cancer, former smoker who presented to [facility] for swing bed rehab program on 05/22/2024 from [facility] after having a right bipolar hip replacement done on 05/16/2024. While at rehab, patient became more confused with increased pain and started passing bright red blood per rectum. She was on Xarelto for DVT prophylaxis. Hgb dropped to 5.7 requiring 2 units of PRBC at [facility] with the 2nd unit infusing en route to [place]. Assuming care. Chart reviewed. She is just back from having IVC filter placed. She slpet okay. Complains of low back pain that is chronic. Up to the chair yesterday. Prior to her fracture, she was walking independently. Exam Narrative: AF 97.5 141/73 71 14 98% ra Gen - NARD Chest - CTA bilaterally, nml RR CV - RRR S1/S2 Abd - Soft, NT/ND, Positive BS Ext - left femoral site with old blood but dressing intact. Right lateral hip dressing clean and dry with surrounding bruising. R>L 1-2+ pitting edema Psych - Nml mood and affect Skin - Warm and dry Objective Data Vital Signs Vital Signs: Vital Signs - 24 hr 06/05/24 14:00 06/05/24 20:26 06/05/24 20:41 Temperature 97.6 F 97.9 F Pulse Rate 70 82 70 Respiratory Rate 16 16 Blood Pressure 151/52 H Pulse Oximetry 99 98 Oxygen Delivery 06/05/24 20:00 06/06/24 05:30 06/06/24 09:10 Temperature 97.5 F L Pulse Rate 72 75 Respiratory Rate 16 15 Blood Pressure 151/58 H 165/75 H Pulse Oximetry 99 99 Oxygen Delivery Room Air Room Air 06/06/24 09:15 06/06/24 10:28 06/06/24 10:39 Temperature Pulse Rate 74 71 71 Respiratory Rate 14 Blood Pressure 164/71 H 141/73 H Pulse Oximetry 98 Oxygen Delivery Room Air Intake/Output Intake/Output: Intake & Output 06/03/24 06/04/24 06/05/24 06/06/24 23:59 23:59 23:59 23:59 Intake Total 1550 1100 1540 1250 Output Total 425 2200 600 Balance 1125 -1100 1540 650 Meds/Results Medications: Active Medications Generic Name Dose Route Start Last Admin Trade Name Freq PRN Reason Stop Dose Admin Acetaminophen 1,000 mg 06/02/24 09:00 06/06/24 10:40 Acetaminophen 500 Mg Tablet PO 1,000 mg BID JOSE Administration Hydrocodone Bitart/Acetaminophen 1 tab 06/02/24 08:12 06/06/24 10:40 Hydrocodone/Acetaminophen (*Crx) 5-325 Mg Tablet PO 1 tab Q6H PRN Administration Pain Rated 7-10 Allopurinol 100 mg 06/03/24 09:00 06/05/24 09:16 Allopurinol 100 Mg Tablet PO 100 mg [id number] JOSE Administration Benzonatate 200 mg 06/04/24 17:00 06/06/24 10:38 Benzonatate 100 Mg Capsule PO 200 mg TID JOSE Administration Calcium Carbonate 500 mg 06/02/24 09:00 06/06/24 10:38 Calcium/Vitamin D 500 Mg/5 Mcg (200 I.U.) Tablet PO 500 mg BID JOSE Administration Dextrose 12.5 gm 06/01/24 20:32 Dextrose 50% 25 Gm/50 Ml Syringe IV PUSH PRN PRN Hypoglycemia Protocol Ferrous Sulfate 325 mg 06/02/24 09:00 06/06/24 10:36 Ferrous Sulfate [address] PO 325 mg BID JOSE Administration Glucagon 1 mg 06/01/24 20:32 Glucagon For Inj 1 Mg Vial IM PRN PRN Hypoglycemia Protocol Glucose 15 gm 06/01/24 20:32 Glucose Oral Gel 15 Gm Of Glucse In 37.5 Gm Tube PO PRN PRN Hypoglycemia Protocol Guaifenesin/Dextromethorphan 10 ml 06/04/24 14:49 Guaifenesin/Dextromethorphan 10 Ml Udc PO Q4H PRN Cough Dextrose 1,000 mls @ 100 mls/hr 06/01/24 20:32 Dextrose 5% 1,000 Ml IVPB PRN PRN Hypoglycemia Protocol Dextrose/Sodium Chloride 1,000 mls @ 50 mls/hr 06/02/24 09:40 06/06/24 02:16 Dextrose 5% Sodium Chloride 0.9% IV CONT 50 mls/hr .Q20H JOSE Administration Ceftriaxone Sodium 2 gm in 100 mls @ 200 mls/hr 06/04/24 14:00 06/05/24 13:30 Rocephin 2 Gm/Ns 100 Ml IVPB 200 mls/hr Q24H JOSE Administration Vancomycin HCl 1,250 mg in 250 mls @ 166.667 mls/hr 06/05/24 08:00 06/06/24 03:44 Vancomycin 1,250 Mg/Ns 250 Ml IVPB Infused Q18H JOSE Infusion Insulin Aspart 3 - 6 units 06/02/24 00:00 06/06/24 05:56 Insulin Aspart (*Bkc) 100 Units/Ml SUB-Q Not Given Q6HR [facility] Protocol Ketorolac Tromethamine 1 drop 06/01/24 20:50 06/06/24 10:41 Ketorolac 0.5% Op Soln 5 Ml Bottle LEFT EYE 1 drop TID JOSE Administration Lactulose 15 gm 06/02/24 17:00 06/06/24 10:40 Lactulose 20 Gm/30 Ml Udc PO 15 gm BID JOSE Administration Lidocaine 2 patch 06/02/24 09:00 06/05/24 11:13 Lidocaine 5% Patch TOPICAL 2 patch DAILY JOSE Administration Morphine Sulfate 2 mg 06/01/24 20:22 06/03/24 08:44 Morphine Sulfate (*Crx) 2 Mg/Ml Inj IV PUSH 2 mg Q4H PRN Administration Pain Rated 7-10 Moxifloxacin HCl 1 drop 06/01/24 21:00 06/06/24 10:41 Moxifloxacin Hcl 0.5% 3 Ml Ophth Soln LEFT EYE 1 drop Q12H JOSE Administration Polyethylene Glycol 17 gm 06/01/24 20:35 Polyethylene Glycol 3350 17 Gm Powd.Pack PO DAILY PRN Constipation Propranolol HCl 20 mg 06/01/24 21:00 06/06/24 10:39 Propranolol Hcl 20 Mg Tablet PO 20 mg Q12H JOSE Administration Rifaximin 550 mg 06/02/24 21:00 06/06/24 10:37 Rifaximin 550 Mg Tablet PO 550 mg Q12HR JOSE Administration Ropinirole HCl 0.25 mg 06/01/24 21:00 06/05/24 20:40 Ropinirole Hcl 0.25 Mg Tablet PO 0.25 mg HS JOSE Administration Senna/Docusate Sodium 2 tab 06/01/24 20:50 06/06/24 10:38 Senna/Docusate Sodium Tablet PO Not Given BID JOSE Spironolactone 100 mg 06/05/24 09:00 06/06/24 10:36 Spironolactone 50 Mg Tablet PO 100 mg QAM JSOE Administration Tramadol HCl 25 mg 06/02/24 08:10 06/02/24 19:51 Tramadol Hcl (*Crx) 25 Mg Tablet PO 25 mg Q4H PRN Administration Pain Rated 4-6 Radiology Results: ITS Impressions Venous Doppler Study 06/02/24 10:48 IMPRESSION: 1. Deep vein thrombosis involving the right peroneal veins. ADDENDUM: 06/02/24 1058 I discussed this result with Latoya Hernandez. Chest X-Ray 06/02/24 11:21 IMPRESSION: 1. No acute cardiopulmonary disease. Lower Extremity CT 06/02/24 12:35 IMPRESSION: 1. Subcutaneous hematoma lateral to the right hip. 2. Comminuted fracture of greater trochanter of proximal right femur. 3. Bipolar right hip hemiarthroplasty in near-anatomic alignment. 4. Mild right hip osteoarthritis. 5. Moderate volume of ascites. Paracentesis Ultrasound 06/04/24 15:04 IMPRESSION: 1. Successful ultrasound-guided paracentesis yielding 2200 mL of yellow fluid. Joint Aspiration/Injection 06/05/24 17:18 IMPRESSION: 1. Ultrasound-guided needle aspiration of the right hip joint yielding no fluid. Cyst Aspiration Ultrasound 06/05/24 17:20 IMPRESSION: 1. Ultrasound-guided needle aspiration of a subcutaneous abscess lateral to right hip yielding 45 mL red, opaque fluid. Labs Labs: Laboratory Results - last 24 hr 06/05/24 06/05/24 06/05/24 11:51 18:25 23:41 WBC RBC Hgb Hct MCV MCH MCHC RDW Plt Count MPV Immature Gran % (Auto) Neut % (Auto) Lymph % (Auto) Rankin % (Auto) Eos % (Auto) Baso % (Auto) Lymph # (Auto) Rankin # (Auto) Eos # (Auto) Baso # (Auto) Abs Immat Gran (auto) Absolute Neuts (auto) Absolute Nucleated RBC Nucleated RBC % Abs Basophils (Manual) Platelet Estimate Hypochromasia Anisocytosis Schistocytes ESR PT INR APTT Sodium Potassium Chloride Carbon Dioxide Anion Gap BUN Creatinine Estim Creat Clear Calc Estimated GFR Glucose POC Capillary Glucose 163 H 162 H 172 H Calcium Magnesium Total Bilirubin AST ALT Alkaline Phosphatase C-Reactive Protein Total Protein Albumin Vancomycin Trough 06/06/24 06/06/24 06/06/24 00:18 05:11 05:18 WBC 3.2 L RBC 2.67 L Hgb 8.5 L Hct 27.0 L MCV 101.1 H MCH 31.8 MCHC 31.5 L RDW 22.9 H Plt Count 129 L MPV 10.2 Immature Gran % (Auto) 0.0 Neut % (Auto) 57.6 Lymph % (Auto) 28.2 Rankin % (Auto) 10.8 H Eos % (Auto) 3.1 Baso % (Auto) 0.3 Lymph # (Auto) 0.91 Rankin # (Auto) 0.4 Eos # (Auto) 0.1 Baso # (Auto) 0.0 Abs Immat Gran (auto) 0.00 Absolute Neuts (auto) 1.9 Absolute Nucleated RBC 0.000 Nucleated RBC % 0.0 Abs Basophils (Manual) 2.27 H Platelet Estimate Slightly decreased Hypochromasia 1+ Anisocytosis 1+ Schistocytes None seen ESR 71 H PT 16.9 H INR 1.3 APTT 37.1 H Sodium 134 L Potassium 3.2 L Chloride 108 H Carbon Dioxide 24 Anion Gap 2 L BUN 14 Creatinine 0.60 L Estim Creat Clear Calc 67 Estimated GFR > 60 Glucose 148 H POC Capillary Glucose Calcium 7.6 L Magnesium 2.0 Total Bilirubin 1.0 AST 31 ALT 11 Alkaline Phosphatase 121 C-Reactive Protein 3.2 H Total Protein 6.0 L Albumin 2.2 L Vancomycin Trough 14.9 06/06/24 05:43 WBC RBC Hgb Hct MCV MCH MCHC RDW Plt Count MPV Immature Gran % (Auto) Neut % (Auto) Lymph % (Auto) Rankin % (Auto) Eos % (Auto) Baso % (Auto) Lymph # (Auto) Rankin # (Auto) Eos # (Auto) Baso # (Auto) Abs Immat Gran (auto) Absolute Neuts (auto) Absolute Nucleated RBC Nucleated RBC % Abs Basophils (Manual) Platelet Estimate Hypochromasia Anisocytosis Schistocytes ESR PT INR APTT Sodium Potassium Chloride Carbon Dioxide Anion Gap BUN Creatinine Estim Creat Clear Calc Estimated GFR Glucose POC Capillary Glucose 160 H Calcium Magnesium Total Bilirubin AST ALT Alkaline Phosphatase C-Reactive Protein Total Protein Albumin Vancomycin Trough
[2024-06-06 12:17] LABS: Glucose Point of Care 163 mg/dl (65-105)
--- NOTE | 2024-06-06 12:34 | P.PNOP_ITS ---
Progress Note: A&P Assessment and Plan (1) Closed fracture of neck of right femur: Qualifiers: Encounter type: initial encounter Qualified Code(s): S72.001A - Fracture of unspecified part of neck of right femur, initial encounter for cl osed fracture Code(s): S72.001A - Fracture of unspecified part of neck of right femur, initial encounter for closed fracture Status: Acute Assessment and Plan: Patient underwent an aspiration of the right hip bipolar replacement. No fluid could be obtained. Typically if the hip were actively infected, she would have a significant amount of fluid. They did aspirate the hematoma as well. And 45 cubic centimeters of bloody fluid was obtained. Will wait for the cultures to come back on the hematoma. If the cultures on the hematoma were negative I think it would be reasonable to consider antibiotics for period time. I do not think the hip is infected, but I told the family I could not guarantee that. Even if I washed it out there is no guarantee that it would prevent any long term care social worker infection. The risk of surgery to this lady is tremendous based on her medical problems. She has had an IVC filter placed which should protect her from a pulmonary embolism. I had a lengthy discussion with the family regarding possible options. We discussed going ahead with the surgery with explantation versus revision. We also discussed placing her on antibiotics as the blood culture showed an infection that was sensitive to almost everything. With the negative aspiration of the hip I am not sure we would gain much by washing out the hip unless the hematoma shows any bacteria. For now we will place her on antibiotics for a period time. I have discussed with the family and they have opted for the nonsurgical plan. There is no simple solution to this problem, but I think this probably is a safer course. (2) Pancytopenia: Code(s): D61.818 - Other pancytopenia Status: Acute (3) Bacteremia: Code(s): R78.81 - Bacteremia Status: Acute (4) DVT (deep venous thrombosis): Code(s): I82.409 - Acute embolism and thrombosis of unspecified deep veins of unspecified lower extremity Status: Acute (5) Cirrhosis of liver with ascites: Code(s): K74.60 - Unspecified cirrhosis of liver; R18.8 - Other ascites Status: Acute Subjective Subjective Date/Time Seen: 12/05/24 12:34 Principal diagnosis: Bipolar, Sepsis Review of Systems Musculoskeletal: Musculoskeletal: Reports arthralgias, Reports joint swelling, Reports muscle weakness and Reports stiffness Exam Narrative: Wound Clean. Minimal pain with motion Radiology Reports: Comments: Patient: Khadra Crook EXAMINATION: US hip asp inj w image RT DATE: 06/05/2024 17:11 INDICATION: Sepsis. TECHNIQUE: The procedure including the risks, benefits, and alternatives was discussed with the patient. Risks discussed included bleeding and infection. The patient understood the risks and agreed to proceed. The skin overlying the right hip was prepped and draped in usual sterile fashion. Anesthetic was administered with 1% lidocaine subcutaneously. An 18 gauge needle was inserted into the right hip joint under ultrasound guidance. No fluid could be aspirated. The entry site was cleaned and dressed. There were no immediate complications. FINDINGS: Ultrasound images demonstrate the needle in the right hip joint. IMPRESSION: 1. Ultrasound-guided needle aspiration o f the right hip joint yielding no fluid. Rev Foot X-Ray 02/08/21 Hip X-Ray 06/17/20 Hip/Pelvis X-Ray 05/15/24 Hip MRI 06/24/20 Knee X-Ray 05/17/24 Knee MRI 11/08/21 Lumbar Spine X-Ray 06/17/20 Lumbar Spine MRI 06/24/20 Objective Data Vital Signs Vital Signs: Vital Signs - 24 hr 06/05/24 14:00 06/05/24 20:26 06/05/24 20:41 Temperature 97.6 F 97.9 F Pulse Rate 70 82 70 Respiratory Rate 16 16 Blood Pressure 151/52 H Pulse Oximetry 99 98 Oxygen Delivery 06/05/24 20:00 06/06/24 05:30 06/06/24 09:10 Temperature 97.5 F L Pulse Rate 72 75 Respiratory Rate 16 15 Blood Pressure 151/58 H 165/75 H Pulse Oximetry 99 99 Oxygen Delivery Room Air Room Air 06/06/24 09:15 06/06/24 10:28 06/06/24 10:39 Temperature Pulse Rate 74 71 71 Respiratory Rate 14 Blood Pressure 164/71 H 141/73 H Pulse Oximetry 98 Oxygen Delivery Room Air 06/06/24 10:40 Temperature Pulse Rate Respiratory Rate Blood Pressure Pulse Oximetry Oxygen Delivery Room Air Intake/Output Intake/Output: Intake & Output 06/03/24 06/04/24 06/05/24 06/06/24 23:59 23:59 23:59 23:59 Intake Total 1550 1100 1540 1250 Output Total 425 2200 600 Balance 1125 -1100 1540 650 Meds/Results Medications: Active Medications Generic Name Dose Route Start Last Admin Trade Name Freq PRN Reason Stop Dose Admin Acetaminophen 1,000 mg 06/02/24 09:00 06/06/24 10:40 Acetaminophen 500 Mg Tablet PO 1,000 mg BID JOSE Administration Hydrocodone Bitart/Acetaminophen 1 tab 06/02/24 08:12 06/06/24 10:40 Hydrocodone/Acetaminophen (*Crx) 5-325 Mg Tablet PO 1 tab Q6H PRN Administration Pain Rated 7-10 Allopurinol 100 mg 06/03/24 09:00 06/05/24 09:16 Allopurinol 100 Mg Tablet PO 100 mg [id number] JOSE Administration Benzonatate 200 mg 06/04/24 17:00 06/06/24 10:38 Benzonatate 100 Mg Capsule PO 200 mg TID JOSE Administration Calcium Carbonate 500 mg 06/02/24 09:00 06/06/24 10:38 Calcium/Vitamin D 500 Mg/5 Mcg (200 I.U.) Tablet PO 500 mg BID JOSE Administration Dextrose 12.5 gm 06/01/24 20:32 Dextrose 50% 25 Gm/50 Ml Syringe IV PUSH PRN PRN Hypoglycemia Protocol Ferrous Sulfate 325 mg 06/02/24 09:00 06/06/24 10:36 Ferrous Sulfate [address] PO 325 mg BID JOSE Administration Glucagon 1 mg 06/01/24 20:32 Glucagon For Inj 1 Mg Vial IM PRN PRN Hypoglycemia Protocol Glucose 15 gm 06/01/24 20:32 Glucose Oral Gel 15 Gm Of Glucse In 37.5 Gm Tube PO PRN PRN Hypoglycemia Protocol Guaifenesin/Dextromethorphan 10 ml 06/04/24 14:49 Guaifenesin/Dextromethorphan 10 Ml Udc PO Q4H PRN Cough Dextrose 1,000 mls @ 100 mls/hr 06/01/24 20:32 Dextrose 5% 1,000 Ml IVPB PRN PRN Hypoglycemia Protocol Dextrose/Sodium Chloride 1,000 mls @ 50 mls/hr 06/02/24 09:40 06/06/24 02:16 Dextrose 5% Sodium Chloride 0.9% IV CONT 50 mls/hr .Q20H JOSE Administration Ceftriaxone Sodium 2 gm in 100 mls @ 200 mls/hr 06/04/24 14:00 06/05/24 13:30 Rocephin 2 Gm/Ns 100 Ml IVPB 200 mls/hr Q24H JOSE Administration Vancomycin HCl 1,250 mg in 250 mls @ 166.667 mls/hr 06/05/24 08:00 06/06/24 03:44 Vancomycin 1,250 Mg/Ns 250 Ml IVPB Infused Q18H JOSE Infusion Insulin Aspart 3 - 6 units 06/02/24 00:00 06/06/24 12:24 Insulin Aspart (*Bkc) 100 Units/Ml SUB-Q Not Given Q6HR [facility] Protocol Ketorolac Tromethamine 1 drop 06/01/24 20:50 06/06/24 10:41 Ketorolac 0.5% Op Soln 5 Ml Bottle LEFT EYE 1 drop TID JOSE Administration Lactulose 15 gm 06/02/24 17:00 06/06/24 10:40 Lactulose 20 Gm/30 Ml Udc PO 15 gm BID JOSE Administration Lidocaine 2 patch 06/02/24 09:00 06/05/24 11:13 Lidocaine 5% Patch TOPICAL 2 patch DAILY JOSE Administration Morphine Sulfate 2 mg 06/01/24 20:22 06/03/24 08:44 Morphine Sulfate (*Crx) 2 Mg/Ml Inj IV PUSH 2 mg Q4H PRN Administration Pain Rated 7-10 Moxifloxacin HCl 1 drop 06/01/24 21:00 06/06/24 10:41 Moxifloxacin Hcl 0.5% 3 Ml Ophth Soln LEFT EYE 1 drop Q12H JOSE Administration Polyethylene Glycol 17 gm 06/01/24 20:35 Polyethylene Glycol 3350 17 Gm Powd.Pack PO DAILY PRN Constipation Propranolol HCl 20 mg 06/01/24 21:00 06/06/24 10:39 Propranolol Hcl 20 Mg Tablet PO 20 mg Q12H JOSE Administration Rifaximin 550 mg 06/02/24 21:00 06/06/24 10:37 Rifaximin 550 Mg Tablet PO 550 mg Q12HR JOSE Administration Ropinirole HCl 0.25 mg 06/01/24 21:00 06/05/24 20:40 Ropinirole Hcl 0.25 Mg Tablet PO 0.25 mg HS JOSE Administration Senna/Docusate Sodium 2 tab 06/01/24 20:50 06/06/24 10:38 Senna/Docusate Sodium Tablet PO Not Given BID JOSE Spironolactone 100 mg 06/05/24 09:00 06/06/24 10:36 Spironolactone 50 Mg Tablet PO 100 mg QAM JOSE Administration Tramadol HCl 25 mg 06/02/24 08:10 06/02/24 19:51 Tramadol Hcl (*Crx) 25 Mg Tablet PO 25 mg Q4H PRN Administration Pain Rated 4-6 Radiology Results: ITS Impressions Venous Doppler Study 06/02/24 10:48 IMPRESSION: 1. Deep vein thrombosis involving the right peroneal veins. ADDENDUM: 06/02/24 1057 I discussed this result with Latoya Hernandez. Chest X-Ray 06/02/24 11:21 IMPRESSION: 1. No acute cardiopulmonary disease. Lower Extremity CT 06/02/24 12:35 IMPRESSION: 1. Subcutaneous hematoma lateral to the right hip. 2. Comminuted fracture of greater trochanter of proximal right femur. 3. Bipolar right hip hemiarthroplasty in near-anatomic alignment. 4. Mild right hip osteoarthritis. 5. Moderate volume of ascites. Paracentesis Ultrasound 06/04/24 15:04 IMPRESSION: 1. Successful ultrasound-guided paracentesis yielding 2200 mL of yellow fluid. Joint Aspiration/Injection 06/05/24 17:18 IMPRESSION: 1. Ultrasound-guided needle aspiration of the right hip joint yielding no fluid. Cyst Aspiration Ultrasound 06/05/24 17:20 IMPRESSION: 1. Ultrasound-guided needle aspiration of a subcutaneous abscess lateral to right hip yielding 45 mL red, opaque fluid. Labs Labs: Laboratory Results - last 24 hr 06/05/24 06/05/24 06/06/24 18:25 23:41 00:18 WBC RBC Hgb Hct MCV MCH MCHC RDW Plt Count MPV Immature Gran % (Auto) Neut % (Auto) Lymph % (Auto) [place] % (Auto) Eos % (Auto) Baso % (Auto) Lymph # (Auto) [place] # (Auto) Eos # (Auto) Baso # (Auto) Abs Immat Gran (auto) Absolute Neuts (auto) Absolute Nucleated RBC Nucleated RBC % Abs Basophils (Manual) Platelet Estimate Hypochromasia Anisocytosis Schistocytes ESR PT INR APTT Sodium Potassium Chloride Carbon Dioxide Anion Gap BUN Creatinine Estim Creat Clear Calc Estimated GFR Glucose POC Capillary Glucose 162 H 172 H Calcium Magnesium Total Bilirubin AST ALT Alkaline Phosphatase C-Reactive Protein Total Protein Albumin Vancomycin Trough 14.9 06/06/24 06/06/24 06/06/24 05:11 05:18 05:43 WBC 3.2 L RBC 2.67 L Hgb 8.5 L Hct 27.0 L MCV 101.1 H MCH 31.8 MCHC 31.5 L RDW 22.9 H Plt Count 129 L MPV 10.2 Immature Gran % (Auto) 0.0 Neut % (Auto) 57.6 Lymph % (Auto) 28.2 [place] % (Auto) 10.8 H Eos % (Auto) 3.1 Baso % (Auto) 0.3 Lymph # (Auto) 0.91 [place] # (Auto) 0.4 Eos # (Auto) 0.1 Baso # (Auto) 0.0 Abs Immat Gran (auto) 0.00 Absolute Neuts (auto) 1.9 Absolute Nucleated RBC 0.000 Nucleated RBC % 0.0 Abs Basophils (Manual) 2.27 H Platelet Estimate Slightly decreased Hypochromasia 1+ Anisocytosis 1+ Schistocytes None seen ESR 71 H PT 16.9 H INR 1.3 APTT 37.1 H Sodium 134 L Potassium 3.2 L Chloride 108 H Carbon Dioxide 24 Anion Gap 2 L BUN 14 Creatinine 0.60 L Estim Creat Clear Calc 67 Estimated GFR > 60 Glucose 148 H POC Capillary Glucose 160 H Calcium 7.6 L Magnesium 2.0 Total Bilirubin 1.0 AST 31 ALT 11 Alkaline Phosphatase 121 C-Reactive Protein 3.2 H Total Protein 6.0 L Albumin 2.2 L Vancomycin Trough 06/06/24 12:11 WBC RBC Hgb Hct MCV MCH MCHC RDW Plt Count MPV Immature Gran % (Auto) Neut % (Auto) Lymph % (Auto) [place] % (Auto) Eos % (Auto) Baso % (Auto) Lymph # (Auto) [place] # (Auto) Eos # (Auto) Baso # (Auto) Abs Immat Gran (auto) Absolute Neuts (auto) Absolute Nucleated RBC Nucleated RBC % Abs Basophils (Manual) Platelet Estimate Hypochromasia Anisocytosis Schistocytes ESR PT INR APTT Sodium Potassium Chloride Carbon Dioxide Anion Gap BUN Creatinine Estim Creat Clear Calc Estimated GFR Glucose POC Capillary Glucose 163 H Calcium Magnesium Total Bilirubin AST ALT Alkaline Phosphatase C-Reactive Protein Total Protein Albumin Vancomycin Trough
[2024-06-06] MEDS: cefTRIAXone 2 GM/NS 100 ML 2 GM/100 ML BAG IVPB (13:48)
[2024-06-06] MEDS: MORPHINE SULFATE (*CRX) 2 MG/ML INJ IV PUSH (14:28)
--- NOTE | 2024-06-06 14:36 | PCPTNOTE ---
Attempted to see patient for PT, nursing in room and advised not to see patient due to patient having a lot going on at this time, patient also declined PT.
--- NOTE | 2024-06-06 15:59 | PHA.ABX.ID ---
Pharmacy ID Consult - Stewardship Interventions Type of Interventions: De-escalation, Discharge Recommendation Pharmacy ID Note: Subjective Pharmacy was consulted by Esperanza Balbuena regarding infectious diseases for Khadra Crook. Khadra Crook is a 84 year old F with concerns regarding potential hip PJI. Background The patient is currently receiving Vancomycin / Ceftriaxone D3. The patient's PMH includes possessing an endoprosthetic replacement for right hip fracture. Patient presents with ascites as well as increased pain swelling in her leg as well as increased feeling tired and weak. Patient has been afebrile since presenting at [facility]. Patient developed an MSSA bloodstream infection with repeat blood cultures currently NGTD x1 day. A second culture of the skin was down (right thigh) which grew K. pneumoniae and E. faecalis. Microbiology 06/02/24 10:33 Thigh Right Aerobic Culture - Final Klebsiella pneumoniae Enterococcus faecalis 06/02/24 10:07 Blood Blood Culture - Final Staphylococcus aureus 06/02/24 10:05 Blood Blood Culture - Final Staphylococcus aureus 06/05/24 17:31 Abscess Anaerobic Culture - Preliminary 06/05/24 10:40 Blood Blood Culture - Preliminary 06/05/24 10:27 Blood Blood Culture - Preliminary 06/04/24 14:42 Paracentesis Fluid Anaerobic Culture - Preliminary 06/04/24 14:42 Paracentesis Fluid Aerobic Culture - Preliminary 06/02/24 10:33 Thigh Right Anaerobic Culture - Preliminary Laboratory Tests 06/04/24 06/04/24 06/05/24 04:47 04:47 05:01 WBC 3.2 L Creatinine 0.60 L Estim Creat Clear Calc 68 C-Reactive Protein 4.6 H Vancomycin Trough 06/05/24 06/05/24 06/05/24 05:07 05:07 05:07 WBC 3.1 L Creatinine 0.60 L Estim Creat Clear Calc 68 C-Reactive Protein Vancomycin Trough 06/06/24 06/06/24 06/06/24 00:18 05:18 05:18 WBC 3.2 L Creatinine Estim Creat Clear Calc 67 C-Reactive Protein Vancomycin Trough 14.9 06/06/24 06/06/24 05:18 05:18 WBC Creatinine 0.60 L Estim Creat Clear Calc C-Reactive Protein 3.2 H Vancomycin Trough Assessment/Recommendation/Discussion Spoke briefly with consulting provider. Patient developed an MSSA bloodstream infection with potential source of PJI from hip. While right thigh culture is to be less of concern per consulting provider, attention should be paid to the cultures obtained from 06/05 in regards to the bloods but also the abscess culture which was an aspiration of the right hip replacement. While there was mainly blood and not the expected fluid per notes, culture could be negative from the antibiotics that have been started since prior to that culture being obtained. Defer all diagnoses to our provider teams. 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 Given this, would recommend at at least 4-6 weeks of intravenous antibiotics targeted towards MSSA followed by PO therapy to complete 3 months total (at least). For the anti-MSSA IV regimen, would recommend nafcillin 12g q24 given over 24 hours OR oxacillin 12g q24h given over 24 hours, cefazolin 2g q8h, or ceftriaxone 2g q24h with vancomycin IV as an alternative. It is recommended to consider using concomitant rifampin PO 300 mg BID for those with retained infected hardware. If likelihood if infected hardware is low then this may not be needed. Rifampin has many drug-drug interactions. Rifampin is contraindicated with Xarelto which is on the patient's home med list but may be dc'd given GIB, but is mentioned should it be retained. In addition, rifampin interacts with APAP, NORCO, Celecoxib, and Tramadol by inducing their metabolism and therefore decreasing their efficacy. Interaction with APAP and the APAP in [place] for increased hepatotoxicity. Interaction with propranolol too to decrease concentrations in blood of propranolol and may lead to decreased effect of propranolol. PO regimen after IV regimen can consist of potential PO cephalexin 1g TID (renal adjust at time of initiation if needed, but none needed now) or Bactrim DS 2 tabs BID (renal adjust if needed) along with rifampin as appropriate as above. Follow 06/05 BCX for clearance of culture to count as D1 of treatment. Follow 06/05 abscess culture for identification of pathogen by hip. Will continue to follow peripherally after the weekend. Thank you for the interesting consult. Shakir Solorzano, PharmD Infectious Disease/Antimicrobial Stewardship Pharmacist 06/06/24; 1559 WBC 3.2 K/mm3 (4.5-10.0) L 06/06/24 05:18 Creatinine 0.60 mg/dL (0.7-1.0) L 06/06/24 05:18 Estim Creat Clear Calc 67 ml/min 06/06/24 05:18
[2024-06-06 17:04] LABS: Glucose Point of Care 203 mg/dl (65-105)
[2024-06-06] MEDS: traMADol HCL (*CRX) 25 MG TABLET PO (17:57)
[2024-06-06] MEDS: INSULIN ASPART (*BKC) 100 UNITS/ML SUB-Q (18:00)
[2024-06-06] MEDS: rOPINIRole HCL 0.25 MG TABLET PO (21:01)
[2024-06-07 00:43] LABS: Glucose Point of Care 149 mg/dl (65-105)
[2024-06-07 04:36] VITALS: BP 144/54; PULSE 77; RESP 18; TEMP 36.5; O2SAT 95
[2024-06-07] MEDS: HYDROcodone/acetaminophen (*CRX) 5-325 MG TABLET 1 TAB PO (04:44)
[2024-06-07 05:13] LABS: Basophils Percent Auto 0.5 % (0.2-1.2); Eosinophils Absolute Auto 0.1 K/mm3 (0-0.3); Eosinophils Percent Auto 2.6 % (0-4.4); Hematocrit 31.6 % (37.0-47.0); Hemoglobin 10.1 g/dL (12.0-15.0); Immature Granulocyte Absolute 0.02 K/mm3 (0.00-0.031); Immature Granulocyte Percent A 0.5 % (0-0.5); Lymphocytes Absolute Auto 1.03 K/mm3 (0.9-3.2); Lymphocytes Percent Auto 24.4 % (18.3-44.2); Mean Platelet Volume 9.8 fl (7.4-10.4); Monocytes Absolute Auto 0.4 K/mm3 (0.1-0.6); Monocytes Percent Auto 8.8 % (2.6-8.5); Neutrophils Absolute Auto 2.7 K/mm3 (1.3-6.7); Neutrophils Percent Auto 63.2 % (45.5-73.1); Platelet Count Result 148 k/mm3 (150-375); Red Blood Count 3.16 M/mm3 (4.2-5.4); Red Cell Distribution Width 22.7 % (11.5-14.5); White Blood Count 4.2 K/mm3 (4.5-10.0)
[2024-06-07 05:16] LABS: Glucose Point of Care 136 mg/dl (65-105)
[2024-06-07 05:30] LABS: Alanine Aminotransferase 11 U/L (6-35); Albumin Level 2.6 g/dL (3.5-5.1); Alkaline Phosphatase 136 U/L (38-126); Anion Gap 4 mmol/L (4-12); Aspartate Amino Transferase 31 U/L (14-36); Bilirubin,Total 1.2 mg/dL (0.2-1.3); Blood Urea Nitrogen 13 mg/dL (7-17); CRP 1.9 mg/dL (<1.0); Carbon Dioxide 22 mmol/L (22-30); Chloride 110 mmol/L (98-107); Estimated CRCL calculation 68 ml/min; Estimated Glomerular Filt Rate > 60; Glucose 171 mg/dL (65-110); Potassium 3.9 mmol/L (3.4-5.0); Sodium 136 mmol/L (137-145)
[2024-06-07 05:35] LABS: Anisocytosis 1+; Platelet Estimate Slightly Decreased (Adequate); Polychromasia 1+
[2024-06-07 05:36] LABS: Burr Cells 1+; Schistocytes None Seen
[2024-06-07 05:37] LABS: Erythrocyte Sedimentation Rate 67 mm/hr (0-20)
[2024-06-07 07:57] LABS: Glucose Point of Care 150 mg/dl (65-105)
[2024-06-07] MEDS: CALCIUM/VITAMIN D 500 MG/5 MCG (200 I.U.) TABLET PO ×2 (10:02→17:37)
[2024-06-07] MEDS: ACETAMINOPHEN 500 MG TABLET 1000 MG PO ×2 (10:02→17:37)
[2024-06-07] MEDS: SPIRONOLACTONE 50 MG TABLET 100 MG PO (10:02)
[2024-06-07] MEDS: rifAXIMin 550 MG TABLET PO ×2 (10:02→21:37)
[2024-06-07 10:03] VITALS: PULSE 76
[2024-06-07] MEDS: PROPRANOLOL HCL 20 MG TABLET PO ×2 (10:03→21:39)
[2024-06-07] MEDS: FERROUS SULFATE 325 MG TABLET DR PO ×2 (10:04→17:37)
[2024-06-07] MEDS: LACTULOSE 20 GM/30 ML UDC 15 GM PO ×2 (10:04→17:38)
[2024-06-07] MEDS: allopurinoL 100 MG TABLET PO (10:04)
[2024-06-07] MEDS: KETOROLAC 0.5% OP SOLN 5 ML BOTTLE 1 DROP LEFT EYE ×3 (10:05→17:38)
[2024-06-07] MEDS: MOXIFLOXACIN HCL 0.5% 3 ML OPHTH SOLN 1 DROP LEFT EYE ×2 (10:05→21:38)
--- NOTE | 2024-06-07 11:53 | PCNFU ---
Nutrition Follow-Up Complete: Inadequate oral intake related to loss of appetite as evidenced by report of poor appetite and weight loss Goal: Adequate PO intake when diet is advanced Patient is progressing towards goal. We will continue current goal. Pt current nutrition is DBCC /Low fiber diet. Last recorded weight is 89.8 kg, up from 84.9 kg on admit. Bowel Motility: +BM reported 06/07 Labs Reviewed:Glu 171, Cr 0.6, Na 136, Alb 2.6 Meds Noted: Rocephin, Lactulose. Skin: WNL Additional Notes: Patient is tolerating DBCC/low fiber diet 40-75% reported. Agree with diet orders. No further nutritional interventions needed at this time. Monitoring diet orders, intakes, weights, labs, plan of care Follow up in 7 days
[2024-06-07 12:04] LABS: Glucose Point of Care 178 mg/dl (65-105)
[2024-06-07] MEDS: cefTRIAXone 2 GM/NS 100 ML 2 GM/100 ML BAG IVPB (13:18)
[2024-06-07 14:00] VITALS: BP 140/53; PULSE 71; RESP 16; TEMP 36.7; O2SAT 95
[2024-06-07 14:14] LABS: Vancomycin Trough 15.9 ug/mL (10.0-20.0)
--- NOTE | 2024-06-07 15:01 | P.PNIM_ITS ---
Progress Note: A&P Assessment and Plan (1) Symptomatic anemia: Code(s): D64.9 - Anemia, unspecified Status: Acute Assessment and Plan: History of anemia at baseline. She had dark tarry stools at [facility] and Hgb dropped to 5.7. She received 2 units of PRBCs History of internal hemorrhoids and was on Xarelto for DVT prophylaxis postoperatively; Xarelto stopped Also noted to have SQ hematoma measuing 18.5x 6.5cm lateral to the right hip. Hgb climbed to the 8 range and remaining stable Acute blood loss anemia from GI source and from post-op hematoma. GI and Ortho following. Endoscopy being considered. Continue Protonix b.i.d. (2) Bacteremia: Code(s): R78.81 - Bacteremia Status: Acute Assessment and Plan: Patient had BCx drawn on admission. No fevers and WBC was normal. CXR clear. UA clear. BCx 06/02 growing MSSA both aerobic sets. Wound culture 06/02 showing Klebsiella pneumoniae that is olmos sensitive and Enterococcus species sensitive to Amp and Vanc Paracentesis Cx 06/04 NGTD Repeat BCx 06/05 NGTD Rt hip hematoma 06/05 was aspirated 45ml of red, opaque fluid and cultured. Gram stain showing no organisms or WBC. No growth. Rt hip joint aspiration 06/05 yielding no fluid. Patient had one dose of Levaquin on 06/02 and placed on doxycycline on 06/03. Changed to vancomycin and Rocephin 2g 06/04 after discussing case with ID pharmacy. Source of MSSA bacteremia unclear but suspect from hematoma from recent hip surgery or from joint infection. Wound culture felt not to be accurate. Recent cultures negative but patient has been on abx. Follow up on culture results. Continue current IV abx. (3) Melena: Code(s): K92.1 - Melena Status: Acute Assessment and Plan: As above (4) Pancytopenia: Code(s): D61.818 - Other pancytopenia Status: Acute Assessment and Plan: WBC normal on admission but has dropped to 3200. This is not uncommon for this patient and probably related to her cirrhosis. WBC better Anemia as mentioned above. Plt count was normal but dropped to 77K just prior to admission. Repeat plt count better. Probably related to splenomegaly, cirrhosis, current infection and sequestration. Monitor (5) Cirrhosis of liver with ascites: Code(s): K74.60 - Unspecified cirrhosis of liver; R18.8 - Other ascites Status: Acute Assessment and Plan: Abdomen/pelvis CT from 05/31/2024 showed moderate ascites with cirrhosis and splenomegaly. Hepatitis panel was negative. Liver enzymes within normal limits, TBili normal. Ammonia level negative Paracentesis 06/04 yielded 2200 ml of yellow fluid Ascitic fluid Cx NGTD Continue Rifaximin and lactulose. Continue Spironolactone. GI following (6) DVT (deep venous thrombosis): Code(s): I82.409 - Acute embolism and thrombosis of unspecified deep veins of unspecified lower extremity Status: Acute Assessment and Plan: Patient noted to have lower extremity edema. Doppler showing right peroneal veins DVT. Not able to anticoagulate so Gen Surg consulted. Patient underwent IVC filter placement 06/06 Start anticoagulation when able. (7) Diastolic dysfunction: Code(s): I51.89 - Other ill-defined heart diseases Status: Chronic Assessment and Plan: Echo 02/27/23 showed a normal LV systolic function with an estimated EF of 65- 70%, diastolic dysfunction noted, moderate aortic valve sclerosis moderate mitral and tricuspid valve regurgitation, mild pulmonary hypertension Add Lasix for a few days to improve fluid status. (8) Closed fracture of neck of right femur: Qualifiers: Encounter type: initial encounter Qualified Code(s): S72.001A - Fracture of unspecified part of neck of right femur, initial encounter for closed fracture Code(s): S72.001A - Fracture of unspecified part of neck of right femur, initial encounter for closed fracture Status: Acute Assessment and Plan: Patient with right femur fx S/P right bipolar hip replacement with Dr. Balbuena on 05/16/24 * Surgical incision with jennie, ecchymosis noted right thigh and lateral hip * Recently at [facility] for swing bed program for rehab * Dr. Balbuena following * Continue pain control * Continue PT and OT (9) Diabetes: Code(s): E11.9 - Type 2 diabetes mellitus without complications Status: Chronic Assessment and Plan: A1C 5.2 (low due to anemia?). The patient's blood glucose was reviewed on 06/07 Glucose remains reasonably well controlled. Continue AccuCheks covering with sliding scale. Hypoglycemia protocol available as needed. Continue to monitor Plan DVT prophylaxis - IVC filter Code status - full Subjective Date/time seen: 06/07/24 15:01 Interval history: 84yo female with anemia, arthritis, dyslipidemia, gout, HTN, DM, liver cancer, former smoker who presented to [facility] for swing bed rehab program on 05/22/2024 from [facility] after having a right bipolar hip replacement done on 05/16/2024. While at rehab, patient became more confused with increased pain and started passing bright red blood per rectum. She was on Xarelto for DVT prophylaxis. Hgb dropped to 5.7 requiring 2 units of PRBC at [facility] with the 2nd unit infusing en route to [place]. Slept some last nigh. Feels 'worn out'. No right hip pain. Has a nonproductive cough. No CP or SOB. Had a BM with gross blood. Also complains of a left lower quadrant achy pain. Exam Narrative: AF 98.1 140/53 71 16 95% ra Gen - NARD Chest - CTA bilaterally, nml RR CV - RRR S1/S2 Abd - Soft, ND, Positive BS, mild LLQ pain but no guarding Ext - Right lateral hip bruising noted. 1+ pitting edema Psych - Nml mood and affect Skin - Warm and dry Objective Data Vital Signs Vital Signs: Vital Signs - 24 hr 06/06/24 19:38 06/06/24 21:01 06/06/24 20:54 Temperature 97.7 F Pulse Rate 77 77 Respiratory Rate 18 Blood Pressure 146/55 H Pulse Oximetry 98 Oxygen Delivery Room Air 06/07/24 04:36 06/07/24 10:03 06/07/24 10:00 Temperature 97.7 F Pulse Rate 77 76 Respiratory Rate 18 Blood Pressure 144/54 H Pulse Oximetry 95 Oxygen Delivery Room Air 06/07/24 14:00 Temperature 98.1 F Pulse Rate 71 Respiratory Rate 16 Blood Pressure 140/53 L Pulse Oximetry 95 Oxygen Delivery Intake/Output Intake/Output: Intake & Output 06/04/24 06/05/24 06/06/24 06/07/24 23:59 23:59 23:59 23:59 Intake Total 1100 1640 1870 240 Output Total 2200 600 Balance -1100 1640 1270 240 Meds/Results Medications: Active Medications Generic Name Dose Route Start Last Admin Trade Name Freq PRN Reason Stop Dose Admin Acetaminophen 1,000 mg 12/01/24 09:00 06/07/24 10:02 Acetaminophen 500 Mg Tablet PO 1,000 mg BID JOSE Administration Hydrocodone Bitart/Acetaminophen 1 tab 06/02/24 08:12 06/07/24 04:44 Hydrocodone/Acetaminophen (*Crx) 5-325 Mg Tablet PO 1 tab Q6H PRN Administration Pain Rated 7-10 Allopurinol 100 mg 06/03/24 09:00 06/07/24 10:04 Allopurinol 100 Mg Tablet PO 100 mg [id number] JOSE Administration Benzonatate 200 mg 06/07/24 07:08 Benzonatate 100 Mg Capsule PO TID PRN Cough Calcium Carbonate 500 mg 06/02/24 09:00 06/07/24 10:02 Calcium/Vitamin D 500 Mg/5 Mcg (200 I.U.) Tablet PO 500 mg BID JOSE Administration Dextrose 12.5 gm 06/01/24 20:32 Dextrose 50% 25 Gm/50 Ml Syringe IV PUSH PRN PRN Hypoglycemia Protocol Ferrous Sulfate 325 mg 06/02/24 09:00 06/07/24 10:04 Ferrous Sulfate [address] PO 325 mg BID OJSE Administration Glucagon 1 mg 06/01/24 20:32 Glucagon For Inj 1 Mg Vial IM PRN PRN Hypoglycemia Protocol Glucose 15 gm 06/01/24 20:32 Glucose Oral Gel 15 Gm Of Glucse In 37.5 Gm Tube PO PRN PRN Hypoglycemia Protocol Guaifenesin/Dextromethorphan 10 ml 06/04/24 14:49 Guaifenesin/Dextromethorphan 10 Ml Udc PO Q4H PRN Cough Dextrose 1,000 mls @ 100 mls/hr 06/01/24 20:32 Dextrose 5% 1,000 Ml IVPB PRN PRN Hypoglycemia Protocol Ceftriaxone Sodium 2 gm in 100 mls @ 200 mls/hr 06/04/24 14:00 06/07/24 13:18 Rocephin 2 Gm/Ns 100 Ml IVPB 150 mls/hr Q24H JOSE Administration Vancomycin HCl 1,250 mg in 250 mls @ 166.667 mls/hr 06/05/24 08:00 06/06/24 22:34 Vancomycin 1,250 Mg/Ns 250 Ml IVPB Infused Q18H JOSE Infusion Insulin Aspart 3 - 6 units 06/02/24 00:00 06/07/24 12:04 Insulin Aspart (*Bkc) 100 Units/Ml SUB-Q Not Given Q6HR [facility] Protocol Ketorolac Tromethamine 1 drop 06/01/24 20:50 06/07/24 13:18 Ketorolac 0.5% Op Soln 5 Ml Bottle LEFT EYE 1 drop TID JOSE Administration Lactulose 15 gm 06/02/24 17:00 06/07/24 10:04 Lactulose 20 Gm/30 Ml Udc PO 15 gm BID JOSE Administration Lidocaine 2 patch 06/02/24 09:00 06/07/24 10:05 Lidocaine 5% Patch TOPICAL Not Given DAILY [facility] Morphine Sulfate 2 mg 06/01/24 20:22 06/06/24 14:28 Morphine Sulfate (*Crx) 2 Mg/Ml Inj IV PUSH 2 mg Q4H PRN Administration Pain Rated 7-10 Moxifloxacin HCl 1 drop 06/01/24 21:00 06/07/24 10:05 Moxifloxacin Hcl 0.5% 3 Ml Ophth Soln LEFT EYE 1 drop Q12H JOSE Administration Polyethylene Glycol 17 gm 06/01/24 20:35 Polyethylene Glycol 3350 17 Gm Powd.Pack PO DAILY PRN Constipation Propranolol HCl 20 mg 06/01/24 21:00 06/07/24 10:03 Propranolol Hcl 20 Mg Tablet PO 20 mg Q12H JOSE Administration Rifaximin 550 mg 06/02/24 21:00 06/07/24 10:02 Rifaximin 550 Mg Tablet PO 550 mg Q12HR JOSE Administration Ropinirole HCl 0.25 mg 06/01/24 21:00 06/06/24 21:01 Ropinirole Hcl 0.25 Mg Tablet PO 0.25 mg HS [facility] Administration Senna/Docusate Sodium 2 tab 06/01/24 20:50 06/07/24 10:04 Senna/Docusate Sodium Tablet PO Not Given BID [facility] Spironolactone 100 mg 06/05/24 09:00 06/07/24 10:02 Spironolactone 50 Mg Tablet PO 100 mg QAM JOSE Administration Tramadol HCl 25 mg 06/02/24 08:10 06/06/24 17:57 Tramadol Hcl (*Crx) 25 Mg Tablet PO 25 mg Q4H PRN Administration Pain Rated 4-6 Radiology Results: ITS Impressions Venous Doppler Study 06/02/24 10:48 IMPRESSION: 1. Deep vein thrombosis involving the right peroneal veins. ADDENDUM: 06/02/24 1058 I discussed this result with Latoya Hernandez. Chest X-Ray 06/02/24 11:21 IMPRESSION: 1. No acute cardiopulmonary disease. Lower Extremity CT 06/02/24 12:35 IMPRESSION: 1. Subcutaneous hematoma lateral to the right hip. 2. Comminuted fracture of greater trochanter of proximal right femur. 3. Bipolar right hip hemiarthroplasty in near-anatomic alignment. 4. Mild right hip osteoarthritis. 5. Moderate volume of ascites. Paracentesis Ultrasound 06/04/24 15:04 IMPRESSION: 1. Successful ultrasound-guided paracentesis yielding 2200 mL of yellow fluid. Joint Aspiration/Injection 06/05/24 17:18 IMPRESSION: 1. Ultrasound-guided needle aspiration of the right hip joint yielding no fluid. Cyst Aspiration Ultrasound 06/05/24 17:20 IMPRESSION: 1. Ultrasound-guided needle aspiration of a subcutaneous abscess lateral to right hip yielding 45 mL red, opaque fluid. Labs Labs: Laboratory Results - last 24 hr 06/06/24 06/06/24 06/07/24 16:54 23:57 04:42 WBC RBC Hgb Hct MCV MCH MCHC RDW Plt Count MPV Immature Gran % (Auto) Neut % (Auto) Lymph % (Auto) [place] % (Auto) Eos % (Auto) Baso % (Auto) Lymph # (Auto) [place] # (Auto) Eos # (Auto) Baso # (Auto) Abs Immat Gran (auto) Absolute Neuts (auto) Absolute Nucleated RBC Nucleated RBC % Platelet Estimate Polychromasia Anisocytosis Swapna Cells Schistocytes ESR Sodium Potassium Chloride Carbon Dioxide Anion Gap BUN Creatinine Estim Creat Clear Calc Estimated GFR Glucose POC Capillary Glucose 203 H 149 H 136 H Calcium Total Bilirubin AST ALT Alkaline Phosphatase C-Reactive Protein Total Protein Albumin Vancomycin Trough 06/07/24 06/07/24 06/07/24 05:05 07:51 11:58 WBC 4.2 L RBC 3.16 L Hgb 10.1 L Hct 31.6 L MCV 100.0 MCH 32.0 MCHC 32.0 RDW 22.7 H Plt Count 148 L MPV 9.8 Immature Gran % (Auto) 0.5 Neut % (Auto) 63.2 Lymph % (Auto) 24.4 [place] % (Auto) 8.8 H Eos % (Auto) 2.6 Baso % (Auto) 0.5 Lymph # (Auto) 1.03 [place] # (Auto) 0.4 Eos # (Auto) 0.1 Baso # (Auto) 0.0 Abs Immat Gran (auto) 0.02 Absolute Neuts (auto) 2.7 Absolute Nucleated RBC 0.000 Nucleated RBC % 0.0 Platelet Estimate Slightly decreased Polychromasia 1+ Anisocytosis 1+ [place] Cells 1+ Schistocytes None seen ESR 67 H Sodium 136 L Potassium 3.9 Chloride 110 H Carbon Dioxide 22 Anion Gap 4 BUN 13 Creatinine 0.60 L Estim Creat Clear Calc 68 Estimated GFR > 60 Glucose 171 H POC Capillary Glucose 150 H 178 H Calcium 8.0 L Total Bilirubin 1.2 AST 31 ALT 11 Alkaline Phosphatase 136 H C-Reactive Protein 1.9 H Total Protein 6.0 L Albumin 2.6 L Vancomycin Trough 06/07/24 12:55 WBC RBC Hgb Hct MCV MCH MCHC RDW Plt Count MPV Immature Gran % (Auto) Neut % (Auto) Lymph % (Auto) [place] % (Auto) Eos % (Auto) Baso % (Auto) Lymph # (Auto) [place] # (Auto) Eos # (Auto) Baso # (Auto) Abs Immat Gran (auto) Absolute Neuts (auto) Absolute Nucleated RBC Nucleated RBC % Platelet Estimate Polychromasia Anisocytosis Swapna Cells Schistocytes ESR Sodium Potassium Chloride Carbon Dioxide Anion Gap BUN Creatinine Estim Creat Clear Calc Estimated GFR Glucose POC Capillary Glucose Calcium Total Bilirubin AST ALT Alkaline Phosphatase C-Reactive Protein Total Protein Albumin Vancomycin Trough 15.9
[2024-06-07] MEDS: VANCOMYCIN 1,250 MG/NS 250 ML 1,250 MG/250 ML BAG 166.67 MG IVPB (15:14)
[2024-06-07] MEDS: FUROSEMIDE 20 MG TABLET PO (18:37)
[2024-06-07 19:34] LABS: Glucose Point of Care 150 mg/dl (65-105)
[2024-06-07 21:27] LABS: Glucose Point of Care 160 mg/dl (65-105)
[2024-06-07] MEDS: rOPINIRole HCL 0.25 MG TABLET PO (21:38)
[2024-06-07 21:39] VITALS: BP 143/61; PULSE 71; RESP 18; TEMP 36.8; O2SAT 99
[2024-06-08 00:07] LABS: Glucose Point of Care 167 mg/dl (65-105)
[2024-06-08 05:18] LABS: Glucose Point of Care 161 mg/dl (65-105)
[2024-06-08 05:59] VITALS: BP 149/70; PULSE 75; RESP 18; TEMP 36.3; O2SAT 98
[2024-06-08 06:06] LABS: Basophils Percent Auto 0.4 % (0.2-1.2); Eosinophils Absolute Auto 0.1 K/mm3 (0-0.3); Eosinophils Percent Auto 2.5 % (0-4.4); Hematocrit 31.2 % (37.0-47.0); Hemoglobin 9.8 g/dL (12.0-15.0); Immature Granulocyte Absolute 0.02 K/mm3 (0.00-0.031); Immature Granulocyte Percent A 0.4 % (0-0.5); Lymphocytes Percent Auto 22.8 % (18.3-44.2); Mean Corpuscular HGB Conc 31.4 g/dl (32-36); Mean Corpuscular Hemoglobin 31.4 pg (26-34); Mean Platelet Volume 9.9 fl (7.4-10.4); Monocytes Absolute Auto 0.4 K/mm3 (0.1-0.6); Monocytes Percent Auto 7.2 % (2.6-8.5); Neutrophils Absolute Auto 3.8 K/mm3 (1.3-6.7); Neutrophils Percent Auto 66.7 % (45.5-73.1); Platelet Count Result 164 k/mm3 (150-375); Red Blood Count 3.12 M/mm3 (4.2-5.4); Red Cell Distribution Width 23.2 % (11.5-14.5); White Blood Count 5.7 K/mm3 (4.5-10.0)
[2024-06-08 06:20] LABS: Alanine Aminotransferase 10 U/L (6-35); Albumin Level 2.6 g/dL (3.5-5.1); Alkaline Phosphatase 141 U/L (38-126); Anion Gap 3 mmol/L (4-12); Aspartate Amino Transferase 27 U/L (14-36); Bilirubin,Total 1.1 mg/dL (0.2-1.3); Blood Urea Nitrogen 13 mg/dL (7-17); CRP 1.4 mg/dL (<1.0); Calcium 8.4 mg/dL (8.4-10.2); Carbon Dioxide 25 mmol/L (22-30); Chloride 108 mmol/L (98-107); Estimated CRCL calculation 69 ml/min; Estimated Glomerular Filt Rate > 60; Glucose 159 mg/dL (65-110); Phosphorus 2.7 mg/dL (2.5-4.5); Potassium 3.4 mmol/L (3.4-5.0); Sodium 136 mmol/L (137-145)
[2024-06-08 06:40] LABS: Anisocytosis 1+; Macrocytosis 1+ (NORMAL); Platelet Estimate Adequate (Adequate); Schistocytes None Seen
[2024-06-08 08:00] VITALS: RESP 20; O2SAT 98
[2024-06-08] MEDS: rifAXIMin 550 MG TABLET PO ×2 (09:43→20:29)
[2024-06-08 09:44] VITALS: PULSE 75
[2024-06-08] MEDS: ACETAMINOPHEN 500 MG TABLET 1000 MG PO (09:44)
[2024-06-08] MEDS: PROPRANOLOL HCL 20 MG TABLET PO ×2 (09:44→20:29)
[2024-06-08] MEDS: POTASSIUM CHLORIDE 20 MEQ ER TABLET 40 MEQ PO (09:44)
[2024-06-08] MEDS: FUROSEMIDE 20 MG TABLET PO ×2 (09:44→17:03)
[2024-06-08] MEDS: FERROUS SULFATE 325 MG TABLET DR PO ×2 (09:44→17:03)
[2024-06-08] MEDS: SPIRONOLACTONE 50 MG TABLET 100 MG PO (09:44)
[2024-06-08] MEDS: VANCOMYCIN 1,250 MG/NS 250 ML 1,250 MG/250 ML BAG 125 MG IVPB (09:45)
[2024-06-08] MEDS: LIDOCAINE 5% PATCH 2 PATCH TOPICAL (09:46)
[2024-06-08] MEDS: KETOROLAC 0.5% OP SOLN 5 ML BOTTLE 1 DROP LEFT EYE ×3 (09:46→17:03)
[2024-06-08] MEDS: MOXIFLOXACIN HCL 0.5% 3 ML OPHTH SOLN 1 DROP LEFT EYE ×2 (09:50→14:51)
[2024-06-08] MEDS: CALCIUM/VITAMIN D 500 MG/5 MCG (200 I.U.) TABLET PO ×2 (09:50→17:03)
--- NOTE | 2024-06-08 11:57 | P.PNIM_ITS ---
Progress Note: A&P Assessment and Plan (1) Symptomatic anemia: Code(s): D64.9 - Anemia, unspecified Status: Acute Assessment and Plan: History of anemia at baseline. She had dark tarry stools at [facility] and Hgb dropped to 5.7. She received 2 units of PRBCs. History of internal hemorrhoids and was on Xarelto for DVT prophylaxis postoperatively; Xarelto stopped. Also noted to have SQ hematoma measuring 18.5x 6.5cm lateral to the right hip. Hgb climbed to the 8 range and remaining stable since Acute blood loss anemia from GI source and from post-op hematoma with underlying chronic anemia. GI and Ortho following. Endoscopy being considered. Continue Protonix b.i.d. (2) Bacteremia: Code(s): R78.81 - Bacteremia Status: Acute Assessment and Plan: Patient had BCx drawn on admission. No fevers and WBC was normal. CXR clear. UA clear. BCx 06/02: growing MSSA both aerobic sets. WCx 06/02: showing Klebsiella pneumoniae that is olmos sensitive and Enterococcus species sensitive to Amp and Vanc Paracentesis Cx 06/04: NGTD Repeat BCx 06/05: NGTD Rt hip hematoma 06/05 was aspirated 45ml of red, opaque fluid and cultured. Gram stain showing no organisms or WBC. Cultures with no growth. Rt hip joint aspiration 06/05 yielding no fluid. Patient had one dose of Levaquin on 06/02 and placed on doxycycline on 06/03. Changed to vancomycin and Rocephin 2g 06/04 after discussing case with ID pharmacy. Source of MSSA bacteremia unclear but suspect from hematoma from recent hip surgery or from joint infection. Wound culture not felt to be accurate. Recent cultures negative but patient has been on abx. Follow up on culture results. Continue Rocephin but stop Vancomycin (3) Melena: Code(s): K92.1 - Melena Status: Acute Assessment and Plan: As above (4) Pancytopenia: Code(s): D61.818 - Other pancytopenia Status: Acute Assessment and Plan: WBC normal on admission but then dropped to 3200. This is not uncommon for this patient and probably related to her cirrhosis. WBC normal now Anemia as mentioned above. Plt count was normal but dropped to 77K just prior to admission. Repeat plt count normal. Probably related to splenomegaly, cirrhosis, current infection and sequestration. Monitor (5) Cirrhosis of liver with ascites: Code(s): K74.60 - Unspecified cirrhosis of liver; R18.8 - Other ascites Status: Acute Assessment and Plan: Abdomen/pelvis CT from 05/31/2024 showed moderate ascites with cirrhosis and splenomegaly. Hepatitis panel was negative. Liver enzymes within normal limits, TBili normal. Ammonia level negative Paracentesis 06/04 yielded 2200 ml of yellow fluid Ascitic fluid Cx NGTD Continue Rifaximin and Spironolactone. Stop Lactulose due to diarrhea GI following (6) DVT (deep venous thrombosis): Code(s): I82.409 - Acute embolism and thrombosis of unspecified deep veins of unspecified lower extremity Status: Acute Assessment and Plan: Patient noted to have lower extremity edema. Doppler showing right peroneal veins DVT. Not able to anticoagulate so Gen Surg consulted for filter. Patient underwent IVC filter placement 06/06 Start anticoagulation when able. (7) Diastolic dysfunction: Code(s): I51.89 - Other ill-defined heart diseases Status: Chronic Assessment and Plan: Echo 02/27/23 showed a normal LV systolic function with an estimated EF of 65- 70%, diastolic dysfunction, moderate aortic valve sclerosis, moderate mitral and tricuspid valve regurgitation, mild pulmonary hypertension Added Lasix for a few days to improve fluid status. (8) Closed fracture of neck of right femur: Qualifiers: Encounter type: initial encounter Qualified Code(s): S72.001A - Fracture of unspecified part of neck of right femur, initial encounter for closed fracture Code(s): S72.001A - Fracture of unspecified part of neck of right femur, initial encounter for closed fracture Status: Acute Assessment and Plan: Patient with right femur fx S/P right bipolar hip replacement with Dr. Balbuena on 05/16/24 * Surgical incision with jennie, ecchymosis noted right thigh and lateral hip * Recently at [facility] for swing bed program for rehab * Dr. Balbuena following * Continue pain control * Continue PT and OT (9) Diabetes: Code(s): E11.9 - Type 2 diabetes mellitus without complications Status: Chronic Assessment and Plan: A1C 5.2 (low due to anemia?). The patient's blood glucose was reviewed on 06/08 Glucose remains reasonably well controlled. Continue AccuCheks covering with sliding scale. Hypoglycemia protocol available as needed. Continue to monitor Plan DVT prophylaxis - IVC filter Code status - full Subjective Date/time seen: 06/08/24 11:57 Interval history: 84yo female with anemia, arthritis, dyslipidemia, gout, HTN, DM, liver cancer, former smoker who presented to [facility] for swing bed rehab program on 05/22/2024 from [facility] after having a right bipolar hip replacement done on 05/16/2024. While at rehab, patient became more confused with increased pain and started passing bright red blood per rectum. She was on Xarelto for DVT prophylaxis. Hgb dropped to 5.7 requiring 2 units of PRBC at [facility] with the 2nd unit infusing en route to [place]. Patient developed diarrhea last night with having multiple stools. No CP or SOB. Some nausea. Up to the chair yesterday. GI was contacted and scheduled Senna and Lactulose stopped this morning. Exam Narrative: AF 97.4 149/70 75 18 98% ra Gen - NARD Chest - right base crackles o/w clear. CV - RRR S1/S2 Abd - Soft, ND/NT, +BS Ext - decreased LE edema Psych - Nml mood and affect Skin - Warm and dry Objective Data Vital Signs Vital Signs: Vital Signs - 24 hr 06/07/24 14:00 06/07/24 21:39 06/07/24 21:39 Temperature 98.1 F 98.2 F Pulse Rate 71 71 71 Respiratory Rate 16 18 Blood Pressure 140/53 L 143/61 H Pulse Oximetry 95 99 Oxygen Delivery 06/07/24 21:30 06/08/24 05:59 06/08/24 09:44 Temperature 97.4 F L Pulse Rate 75 75 Respiratory Rate 18 Blood Pressure 149/70 H Pulse Oximetry 98 Oxygen Delivery Room Air Intake/Output Intake/Output: Intake & Output 06/05/24 06/06/24 06/07/24 06/08/24 23:59 23:59 23:59 23:59 Intake Total 1640 1870 590 670 Output Total 600 Balance 1640 1270 590 670 Meds/Results Medications: Active Medications Generic Name Dose Route Start Last Admin Trade Name Freq PRN Reason Stop Dose Admin Acetaminophen 1,000 mg 06/02/24 09:00 06/08/24 09:44 Acetaminophen 500 Mg Tablet PO 1,000 mg BID JOSE Administration Hydrocodone Bitart/Acetaminophen 1 tab 06/02/24 08:12 06/07/24 04:44 Hydrocodone/Acetaminophen (*Crx) 5-325 Mg Tablet PO 1 tab Q6H PRN Administration Pain Rated 7-10 Allopurinol 100 mg 06/03/24 09:00 06/07/24 10:04 Allopurinol 100 Mg Tablet PO 100 mg [id number] JOSE Administration Benzonatate 200 mg 06/07/24 07:08 Benzonatate 100 Mg Capsule PO TID PRN Cough Calcium Carbonate 500 mg 06/02/24 09:00 06/08/24 09:50 Calcium/Vitamin D 500 Mg/5 Mcg (200 I.U.) Tablet PO 500 mg BID JOSE Administration Dextrose 12.5 gm 06/01/24 20:32 Dextrose 50% 25 Gm/50 Ml Syringe IV PUSH PRN PRN Hypoglycemia Protocol Ferrous Sulfate 325 mg 06/02/24 09:00 06/08/24 09:44 Ferrous Sulfate [address] PO 325 mg BID JOSE Administration Furosemide 20 mg 06/07/24 18:10 06/08/24 09:44 Furosemide 20 Mg Tablet PO 20 mg BID JOSE Administration Glucagon 1 mg 06/01/24 20:32 Glucagon For Inj 1 Mg Vial IM PRN PRN Hypoglycemia Protocol Glucose 15 gm 06/01/24 20:32 Glucose Oral Gel 15 Gm Of Glucse In 37.5 Gm Tube PO PRN PRN Hypoglycemia Protocol Guaifenesin/Dextromethorphan 10 ml 06/04/24 14:49 Guaifenesin/Dextromethorphan 10 Ml Udc PO Q4H PRN Cough Dextrose 1,000 mls @ 100 mls/hr 06/01/24 20:32 Dextrose 5% 1,000 Ml IVPB PRN PRN Hypoglycemia Protocol Ceftriaxone Sodium 2 gm in 100 mls @ 200 mls/hr 06/04/24 14:00 06/07/24 13:59 Rocephin 2 Gm/Ns 100 Ml IVPB Infused Q24H JOSE Infusion Vancomycin HCl 1,250 mg in 250 mls @ 166.667 mls/hr 06/05/24 08:00 06/08/24 09:45 Vancomycin 1,250 Mg/Ns 250 Ml IVPB 125 mls/hr Q18H JOSE Administration Insulin Aspart 3 - 6 units 06/02/24 00:00 06/08/24 05:19 Insulin Aspart (*Bkc) 100 Units/Ml SUB-Q Not Given Q6HR [facility] Protocol Ketorolac Tromethamine 1 drop 06/01/24 20:50 06/08/24 09:46 Ketorolac 0.5% Op Soln 5 Ml Bottle LEFT EYE 1 drop TID JOSE Administration Lidocaine 2 patch 06/02/24 09:00 06/08/24 09:46 Lidocaine 5% Patch TOPICAL 2 patch DAILY JOSE Administration Morphine Sulfate 2 mg 06/01/24 20:22 06/06/24 14:28 Morphine Sulfate (*Crx) 2 Mg/Ml Inj IV PUSH 2 mg Q4H PRN Administration Pain Rated 7-10 Moxifloxacin HCl 1 drop 06/01/24 21:00 06/08/24 09:50 Moxifloxacin Hcl 0.5% 3 Ml Ophth Soln LEFT EYE 1 drop Q12H JOSE Administration Propranolol HCl 20 mg 06/01/24 21:00 06/08/24 09:44 Propranolol Hcl 20 Mg Tablet PO 20 mg Q12H JOSE Administration Rifaximin 550 mg 06/02/24 21:00 06/08/24 09:43 Rifaximin 550 Mg Tablet PO 550 mg Q12HR JOSE Administration Ropinirole HCl 0.25 mg 06/01/24 21:00 06/07/24 21:38 Ropinirole Hcl 0.25 Mg Tablet PO 0.25 mg HS JOSE Administration Spironolactone 100 mg 06/05/24 09:00 06/08/24 09:44 Spironolactone 50 Mg Tablet PO 100 mg QAM JOSE Administration Tramadol HCl 25 mg 06/02/24 08:10 06/06/24 17:57 Tramadol Hcl (*Crx) 25 Mg Tablet PO 25 mg Q4H PRN Administration Pain Rated 4-6 Radiology Results: ITS Impressions Venous Doppler Study 06/02/24 10:48 IMPRESSION: 1. Deep vein thrombosis involving the right peroneal veins. ADDENDUM: 06/02/24 1058 I discussed this result with Latoya Hernandez. Chest X-Ray 06/02/24 11:21 IMPRESSION: 1. No acute cardiopulmonary disease. Lower Extremity CT 06/02/24 12:35 IMPRESSION: 1. Subcutaneous hematoma lateral to the right hip. 2. Comminuted fracture of greater trochanter of proximal right femur. 3. Bipolar right hip hemiarthroplasty in near-anatomic alignment. 4. Mild right hip osteoarthritis. 5. Moderate volume of ascites. Paracentesis Ultrasound 06/04/24 15:04 IMPRESSION: 1. Successful ultrasound-guided paracentesis yielding 2200 mL of yellow fluid. Joint Aspiration/Injection 06/05/24 17:18 IMPRESSION: 1. Ultrasound-guided needle aspiration of the right hip joint yielding no fluid. Cyst Aspiration Ultrasound 06/05/24 17:20 IMPRESSION: 1. Ultrasound-guided needle aspiration of a subcutaneous abscess lateral to right hip yielding 45 mL red, opaque fluid. Labs Labs: Laboratory Results - last 24 hr 06/07/24 06/07/24 06/07/24 11:58 12:55 19:26 WBC RBC Hgb Hct MCV MCH MCHC RDW Plt Count MPV Immature Gran % (Auto) Neut % (Auto) Lymph % (Auto) [place] % (Auto) Eos % (Auto) Baso % (Auto) Lymph # (Auto) [place] # (Auto) Eos # (Auto) Baso # (Auto) Abs Immat Gran (auto) Absolute Neuts (auto) Absolute Nucleated RBC Nucleated RBC % Platelet Estimate Anisocytosis Macrocytosis Schistocytes Sodium Potassium Chloride Carbon Dioxide Anion Gap BUN Creatinine Estim Creat Clear Calc Estimated GFR Glucose POC Capillary Glucose 178 H 150 H Calcium Phosphorus Total Bilirubin AST ALT Alkaline Phosphatase C-Reactive Protein Total Protein Albumin Vancomycin Trough 15.9 06/07/24 06/08/24 06/08/24 21:01 00:01 05:14 WBC 5.7 RBC 3.12 L Hgb 9.8 L Hct 31.2 L MCV 100.0 MCH 31.4 MCHC 31.4 L RDW 23.2 H Plt Count 164 MPV 9.9 Immature Gran % (Auto) 0.4 Neut % (Auto) 66.7 Lymph % (Auto) 22.8 [place] % (Auto) 7.2 Eos % (Auto) 2.5 Baso % (Auto) 0.4 Lymph # (Auto) 1.30 [place] # (Auto) 0.4 Eos # (Auto) 0.1 Baso # (Auto) 0.0 Abs Immat Gran (auto) 0.02 Absolute Neuts (auto) 3.8 Absolute Nucleated RBC 0.000 Nucleated RBC % 0.0 Platelet Estimate Adequate Anisocytosis 1+ Macrocytosis 1+ Schistocytes None seen Sodium 136 L Potassium 3.4 Chloride 108 H Carbon Dioxide 25 Anion Gap 3 L BUN 13 Creatinine 0.60 L Estim Creat Clear Calc 69 Estimated GFR > 60 Glucose 159 H POC Capillary Glucose 160 H 167 H Calcium 8.4 Phosphorus 2.7 Total Bilirubin 1.1 AST 27 ALT 10 Alkaline Phosphatase 141 H C-Reactive Protein 1.4 H Total Protein 6.0 L Albumin 2.6 L Vancomycin Trough 06/08/24 05:15 WBC RBC Hgb Hct MCV MCH MCHC RDW Plt Count MPV Immature Gran % (Auto) Neut % (Auto) Lymph % (Auto) [place] % (Auto) Eos % (Auto) Baso % (Auto) Lymph # (Auto) [place] # (Auto) Eos # (Auto) Baso # (Auto) Abs Immat Gran (auto) Absolute Neuts (auto) Absolute Nucleated RBC Nucleated RBC % Platelet Estimate Anisocytosis Macrocytosis Schistocytes Sodium Potassium Chloride Carbon Dioxide Anion Gap BUN Creatinine Estim Creat Clear Calc Estimated GFR Glucose POC Capillary Glucose 161 H Calcium Phosphorus Total Bilirubin AST ALT Alkaline Phosphatase C-Reactive Protein Total Protein Albumin Vancomycin Trough
--- NOTE | 2024-06-08 13:01 | WPDGIPROGNO ---
Progress Note: A&P Assessment and Plan (1) Symptomatic anemia: Code(s): D64.9 - Anemia, unspecified Status: Acute Assessment and Plan: probably multifactorial from hematoma, previous surgery, cirrhosis, etc monitor for signs of bleeding (2) Diarrhea: Code(s): R19.7 - Diarrhea, unspecified Status: Acute Assessment and Plan: she was on lactulose because cirrhosis and some confusion she had several episode of diarrhea that is affecting her skin and causing discomfort on hold for now along with laxatives, will monitor (3) Cirrhosis: Code(s): K74.60 - Unspecified cirrhosis of liver Status: Acute Assessment and Plan: medical management (4) Altered mental status: Code(s): R41.82 - Altered mental status, unspecified Status: Acute (5) Closed fracture of neck of right femur: Qualifiers: Encounter type: initial encounter Qualified Code(s): S72.001A - Fracture of unspecified part of neck of right femur, initial encounter for closed fracture Code(s): S72.001A - Fracture of unspecified part of neck of right femur, initial encounter for closed fracture Status: Acute (6) DVT (deep venous thrombosis): Code(s): I82.409 - Acute embolism and thrombosis of unspecified deep veins of unspecified lower extremity Status: Acute Assessment and Plan: s/p IVC filter, can not get blood thinner given recent symptomatic anemia (7) History of gastric bypass: Code(s): Z98.84 - Bariatric surgery status Status: Acute Subjective Date/time seen: 06/08/24 13:01 Interval history: I was called to evaluate patient again, she had more about 7 loose stools yesterday and today 3 more. Lactulose, dulcolax and senna discontinued she is feeling weak family members at bedside Review of Systems Review of Systems: All systems reviewed & are unremarkable except as noted in HPI and below Exam Narrative: Gen - NARD, chronically ill appearing HEENT- normal nares neck supple Chest - right base crackles o/w clear. CV - RRR S1/S2 Abd - Soft, ND/NT, +BS Ext - decreased LE edema Psych - Nml mood and affect Skin - Warm and dry neuro- awake and alert Objective Data Vital Signs Vital Signs: Vital Signs - 24 hr 06/07/24 14:00 06/07/24 21:39 06/07/24 21:39 Temperature 98.1 F 98.2 F Pulse Rate 71 71 71 Respiratory Rate 16 18 Blood Pressure 140/53 L 143/61 H Pulse Oximetry 95 99 Oxygen Delivery 06/07/24 21:30 06/08/24 05:59 06/08/24 09:44 Temperature 97.4 F L Pulse Rate 75 75 Respiratory Rate 18 Blood Pressure 149/70 H Pulse Oximetry 98 Oxygen Delivery Room Air Intake/Output Intake/Output: Intake & Output 06/05/24 06/06/24 06/07/24 06/08/24 23:59 23:59 23:59 23:59 Intake Total 1640 1870 590 670 Output Total 600 Balance 1640 1270 590 670 Meds/Results Medications: Active Medications Generic Name Dose Route Start Last Admin Trade Name Freq PRN Reason Stop Dose Admin Acetaminophen 650 mg 06/08/24 12:14 Acetaminophen 325 Mg Tablet PO Q6H PRN Mild Pain (1-5) Or Fever Hydrocodone Bitart/Acetaminophen 1 tab 06/08/24 12:14 Hydrocodone/Acetaminophen (*Crx) 5-325 Mg Tablet PO Q6H PRN Pain Rated 6 or Greater Allopurinol 100 mg 06/03/24 09:00 06/07/24 10:04 Allopurinol 100 Mg Tablet PO 100 mg [id number] JOSE Administration Benzonatate 200 mg 06/07/24 07:08 Benzonatate 100 Mg Capsule PO TID PRN Cough Calcium Carbonate 500 mg 06/02/24 09:00 06/08/24 09:50 Calcium/Vitamin D 500 Mg/5 Mcg (200 I.U.) Tablet PO 500 mg BID JOSE Administration Dextrose 12.5 gm 06/01/24 20:32 Dextrose 50% 25 Gm/50 Ml Syringe IV PUSH PRN PRN Hypoglycemia Protocol Ferrous Sulfate 325 mg 06/02/24 09:00 06/08/24 09:44 Ferrous Sulfate [address] PO 325 mg BID JOSE Administration Furosemide 20 mg 06/07/24 18:10 06/08/24 09:44 Furosemide 20 Mg Tablet PO 20 mg BID JOSE Administration Glucagon 1 mg 06/01/24 20:32 Glucagon For Inj 1 Mg Vial IM PRN PRN Hypoglycemia Protocol Glucose 15 gm 06/01/24 20:32 Glucose Oral Gel 15 Gm Of Glucse In 37.5 Gm Tube PO PRN PRN Hypoglycemia Protocol Guaifenesin/Dextromethorphan 10 ml 06/04/24 14:49 Guaifenesin/Dextromethorphan 10 Ml Udc PO Q4H PRN Cough Dextrose 1,000 mls @ 100 mls/hr 06/01/24 20:32 Dextrose 5% 1,000 Ml IVPB PRN PRN Hypoglycemia Protocol Ceftriaxone Sodium 2 gm in 100 mls @ 200 mls/hr 06/04/24 14:00 06/07/24 13:59 Rocephin 2 Gm/Ns 100 Ml IVPB Infused Q24H JOSE Infusion Insulin Aspart 3 - 6 units 06/02/24 00:00 06/08/24 05:19 Insulin Aspart (*Bkc) 100 Units/Ml SUB-Q Not Given Q6HR [facility] Protocol Ketorolac Tromethamine 1 drop 06/01/24 20:50 06/08/24 09:46 Ketorolac 0.5% Op Soln 5 Ml Bottle LEFT EYE 1 drop TID JOSE Administration Lidocaine 2 patch 06/02/24 09:00 06/08/24 09:46 Lidocaine 5% Patch TOPICAL 2 patch DAILY JOSE Administration Moxifloxacin HCl 1 drop 06/01/24 21:00 06/08/24 09:50 Moxifloxacin Hcl 0.5% 3 Ml Ophth Soln LEFT EYE 1 drop Q12H JOSE Administration Propranolol HCl 20 mg 06/01/24 21:00 06/08/24 09:44 Propranolol Hcl 20 Mg Tablet PO 20 mg Q12H JOSE Administration Rifaximin 550 mg 06/02/24 21:00 06/08/24 09:43 Rifaximin 550 Mg Tablet PO 550 mg Q12HR JOSE Administration Ropinirole HCl 0.25 mg 06/01/24 21:00 06/07/24 21:38 Ropinirole Hcl 0.25 Mg Tablet PO 0.25 mg HS JOSE Administration Spironolactone 100 mg 06/05/24 09:00 06/08/24 09:44 Spironolactone 50 Mg Tablet PO 100 mg QAM JOSE Administration Radiology Results: ITS Impressions Venous Doppler Study 06/02/24 10:48 IMPRESSION: 1. Deep vein thrombosis involving the right peroneal veins. ADDENDUM: 06/02/24 1058 I discussed this result with Latoya Hernandez. Chest X-Ray 06/02/24 11:21 IMPRESSION: 1. No acute cardiopulmonary disease. Lower Extremity CT 06/02/24 12:35 IMPRESSION: 1. Subcutaneous hematoma lateral to the right hip. 2. Comminuted fracture of greater trochanter of proximal right femur. 3. Bipolar right hip hemiarthroplasty in near-anatomic alignment. 4. Mild right hip osteoarthritis. 5. Moderate volume of ascites. Paracentesis Ultrasound 06/04/24 15:04 IMPRESSION: 1. Successful ultrasound-guided paracentesis yielding 2200 mL of yellow fluid. Joint Aspiration/Injection 06/05/24 17:18 IMPRESSION: 1. Ultrasound-guided needle aspiration of the right hip joint yielding no fluid. Cyst Aspiration Ultrasound 06/05/24 17:20 IMPRESSION: 1. Ultrasound-guided needle aspiration of a subcutaneous abscess lateral to right hip yielding 45 mL red, opaque fluid. Labs Labs: Laboratory Results - last 24 hr 06/07/24 06/07/24 06/07/24 12:55 19:26 21:01 WBC RBC Hgb Hct MCV MCH MCHC RDW Plt Count MPV Immature Gran % (Auto) Neut % (Auto) Lymph % (Auto) [place] % (Auto) Eos % (Auto) Baso % (Auto) Lymph # (Auto) [place] # (Auto) Eos # (Auto) Baso # (Auto) Abs Immat Gran (auto) Absolute Neuts (auto) Absolute Nucleated RBC Nucleated RBC % Platelet Estimate Anisocytosis Macrocytosis Schistocytes Sodium Potassium Chloride Carbon Dioxide Anion Gap BUN Creatinine Estim Creat Clear Calc Estimated GFR Glucose POC Capillary Glucose 150 H 160 H Calcium Phosphorus Total Bilirubin AST ALT Alkaline Phosphatase C-Reactive Protein Total Protein Albumin Vancomycin Trough 15.9 06/08/24 06/08/24 06/08/24 00:01 05:14 05:15 WBC 5.7 RBC 3.12 L Hgb 9.8 L Hct 31.2 L MCV 100.0 MCH 31.4 MCHC 31.4 L RDW 23.2 H Plt Count 164 MPV 9.9 Immature Gran % (Auto) 0.4 Neut % (Auto) 66.7 Lymph % (Auto) 22.8 [place] % (Auto) 7.2 Eos % (Auto) 2.5 Baso % (Auto) 0.4 Lymph # (Auto) 1.30 [place] # (Auto) 0.4 Eos # (Auto) 0.1 Baso # (Auto) 0.0 Abs Immat Gran (auto) 0.02 Absolute Neuts (auto) 3.8 Absolute Nucleated RBC 0.000 Nucleated RBC % 0.0 Platelet Estimate Adequate Anisocytosis 1+ Macrocytosis 1+ Schistocytes None seen Sodium 136 L Potassium 3.4 Chloride 108 H Carbon Dioxide 25 Anion Gap 3 L BUN 13 Creatinine 0.60 L Estim Creat Clear Calc 69 Estimated GFR > 60 Glucose 159 H POC Capillary Glucose 167 H 161 H Calcium 8.4 Phosphorus 2.7 Total Bilirubin 1.1 AST 27 ALT 10 Alkaline Phosphatase 141 H C-Reactive Protein 1.4 H Total Protein 6.0 L Albumin 2.6 L Vancomycin Trough
[2024-06-08] MEDS: LIDOCAINE HCL 1% PF INJ 5 ML VIAL INFILTRATE (13:15)
[2024-06-08 14:00] VITALS: BP 129/47; PULSE 74; RESP 20; TEMP 36.5; O2SAT 98
[2024-06-08] MEDS: CENTRAL LINE FLUSH 10 ML IV PUSH ×2 (15:02→20:29)
[2024-06-08 16:57] LABS: Glucose Point of Care 172 mg/dl (65-105)
[2024-06-08] MEDS: cefTRIAXone 2 GM/NS 100 ML 2 GM/100 ML BAG IVPB (17:02)
--- NOTE | 2024-06-08 17:58 | P.PNOP_ITS ---
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: Onset Date: 05/16/24 Code(s): Z96.641 - Presence of right artificial hip joint Status: Acute Assessment and Plan: Wound remains clean Cultures negative Following [place] out today (2) Pancytopenia: Code(s): D61.818 - Other pancytopenia Status: Acute (3) Bacteremia: Code(s): R78.81 - Bacteremia Status: Acute (4) DVT (deep venous thrombosis): Code(s): I82.409 - Acute embolism and thrombosis of unspecified deep veins of unspecified lower extremity Status: Acute (5) Cirrhosis of liver with ascites: Code(s): K74.60 - Unspecified cirrhosis of liver; R18.8 - Other ascites Status: Acute Subjective Subjective Date/Time Seen: 06/08/24 17:58 Principal diagnosis: Bipolar, Sepsis Review of Systems Musculoskeletal: Musculoskeletal: Reports arthralgias, Reports joint swelling, Reports muscle weakness and Reports stiffness Exam Narrative: Wd-A No drainage Following Objective Data Vital Signs Vital Signs: Vital Signs - 24 hr 06/07/24 21:39 06/07/24 21:39 06/07/24 21:30 Temperature 98.2 F Pulse Rate 71 71 Respiratory Rate 18 Blood Pressure 143/61 H Pulse Oximetry 99 Oxygen Delivery Room Air 06/08/24 05:59 06/08/24 09:44 06/08/24 14:00 Temperature 97.4 F L 97.7 F Pulse Rate 75 75 74 Respiratory Rate 18 20 Blood Pressure 149/70 H 129/47 L Pulse Oximetry 98 98 Oxygen Delivery 06/08/24 08:00 Temperature Pulse Rate Respiratory Rate 20 Blood Pressure Pulse Oximetry 98 Oxygen Delivery Room Air Intake/Output Intake/Output: Intake & Output 06/05/24 06/06/24 06/07/24 06/08/24 23:59 23:59 23:59 23:59 Intake Total 1640 1870 590 670 Output Total 600 Balance 1640 1270 798 670 Meds/Results Medications: Active Medications Generic Name Dose Route Start Last Admin Trade Name Freq PRN Reason Stop Dose Admin Acetaminophen 650 mg 06/08/24 12:14 Acetaminophen 325 Mg Tablet PO Q6H PRN Mild Pain (1-5) Or Fever Hydrocodone Bitart/Acetaminophen 1 tab 06/08/24 12:14 Hydrocodone/Acetaminophen (*Crx) 5-325 Mg Tablet PO Q6H PRN Pain Rated 6 or Greater Allopurinol 100 mg 06/03/24 09:00 06/07/24 10:04 Allopurinol 100 Mg Tablet PO 100 mg [email or web address] JOSE Administration Benzonatate 200 mg 06/07/24 07:08 Benzonatate 100 Mg Capsule PO TID PRN Cough Calcium Carbonate 500 mg 06/02/24 09:00 06/08/24 17:03 Calcium/Vitamin D 500 Mg/5 Mcg (200 I.U.) Tablet PO 500 mg BID JOSE Administration Dextrose 12.5 gm 06/01/24 20:32 Dextrose 50% 25 Gm/50 Ml Syringe IV PUSH PRN PRN Hypoglycemia Protocol Ferrous Sulfate 325 mg 06/02/24 09:00 06/08/24 17:03 Ferrous Sulfate [address] PO 325 mg BID JOSE Administration Furosemide 20 mg 06/07/24 18:10 06/08/24 17:03 Furosemide 20 Mg Tablet PO 20 mg BID JOSE Administration Glucagon 1 mg 06/01/24 20:32 Glucagon For Inj 1 Mg Vial IM PRN PRN Hypoglycemia Protocol Glucose 15 gm 06/01/24 20:32 Glucose Oral Gel 15 Gm Of Glucse In 37.5 Gm Tube PO PRN PRN Hypoglycemia Protocol Guaifenesin/Dextromethorphan 10 ml 06/04/24 14:49 Guaifenesin/Dextromethorphan 10 Ml Udc PO Q4H PRN Cough Dextrose 1,000 mls @ 100 mls/hr 06/01/24 20:32 Dextrose 5% 1,000 Ml IVPB PRN PRN Hypoglycemia Protocol Ceftriaxone Sodium 2 gm in 100 mls @ 200 mls/hr 06/04/24 14:00 06/08/24 17:02 Rocephin 2 Gm/Ns 100 Ml IVPB 150 mls/hr Q24H JOSE Administration Insulin Aspart 3 - 6 units 06/02/24 00:00 06/08/24 14:45 Insulin Aspart (*Bkc) 100 Units/Ml SUB-Q Not Given Q6HR [facility] Protocol Ketorolac Tromethamine 1 drop 06/01/24 20:50 06/08/24 17:03 Ketorolac 0.5% Op Soln 5 Ml Bottle LEFT EYE 1 drop TID JOSE Administration Lidocaine 2 patch 06/02/24 09:00 06/08/24 09:46 Lidocaine 5% Patch TOPICAL 2 patch DAILY JOSE Administration Moxifloxacin HCl 1 drop 06/01/24 21:00 06/08/24 14:51 Moxifloxacin Hcl 0.5% 3 Ml Ophth Soln LEFT EYE 1 drop Q12H JOSE Administration Propranolol HCl 20 mg 06/01/24 21:00 06/08/24 09:44 Propranolol Hcl 20 Mg Tablet PO 20 mg Q12H JOSE Administration Rifaximin 550 mg 06/02/24 21:00 06/08/24 09:43 Rifaximin 550 Mg Tablet PO 550 mg Q12HR JOSE Administration Ropinirole HCl 0.25 mg 06/01/24 21:00 06/07/24 21:38 Ropinirole Hcl 0.25 Mg Tablet PO 0.25 mg HS JOSE Administration Sodium Chloride 10 ml 06/08/24 14:00 06/08/24 15:02 Central Line Flush IV PUSH 10 ml Q8HR JOSE Administration Sodium Chloride 10 ml 06/08/24 13:55 Central Line Flush IV PUSH PRN PRN with TPN bag changes Sodium Chloride 20 ml 06/08/24 13:55 Central Line Flush IV PUSH PRN PRN after blood draws Spironolactone 100 mg 06/05/24 09:00 06/08/24 09:44 Spironolactone 50 Mg Tablet PO 100 mg QAM JOSE Administration Radiology Results: ITS Impressions Venous Doppler Study 06/02/24 10:48 IMPRESSION: 1. Deep vein thrombosis involving the right peroneal veins. ADDENDUM: 06/02/24 1058 I discussed this result with Latoya Hernandez. Chest X-Ray 06/02/24 11:21 IMPRESSION: 1. No acute cardiopulmonary disease. Lower Extremity CT 06/02/24 12:35 IMPRESSION: 1. Subcutaneous hematoma lateral to the right hip. 2. Comminuted fracture of greater trochanter of proximal right femur. 3. Bipolar right hip hemiarthroplasty in near-anatomic alignment. 4. Mild right hip osteoarthritis. 5. Moderate volume of ascites. Paracentesis Ultrasound 06/04/24 15:04 IMPRESSION: 1. Successful ultrasound-guided paracentesis yielding 2200 mL of yellow fluid. Joint Aspiration/Injection 06/05/24 17:18 IMPRESSION: 1. Ultrasound-guided needle aspiration of the right hip joint yielding no fluid. Cyst Aspiration Ultrasound 06/05/24 17:20 IMPRESSION: 1. Ultrasound-guided needle aspiration of a subcutaneous abscess lateral to right hip yielding 45 mL red, opaque fluid. Labs Labs: Laboratory Results - last 24 hr 06/07/24 06/07/24 06/08/24 19:26 21:01 00:01 WBC RBC Hgb Hct MCV MCH MCHC RDW Plt Count MPV Immature Gran % (Auto) Neut % (Auto) Lymph % (Auto) [place] % (Auto) Eos % (Auto) Baso % (Auto) Lymph # (Auto) [place] # (Auto) Eos # (Auto) Baso # (Auto) Abs Immat Gran (auto) Absolute Neuts (auto) Absolute Nucleated RBC Nucleated RBC % Platelet Estimate Anisocytosis Macrocytosis Schistocytes Sodium Potassium Chloride Carbon Dioxide Anion Gap BUN Creatinine Estim Creat Clear Calc Estimated GFR Glucose POC Capillary Glucose 150 H 160 H 167 H Calcium Phosphorus Total Bilirubin AST ALT Alkaline Phosphatase C-Reactive Protein Total Protein Albumin 06/08/24 06/08/24 06/08/24 05:14 05:15 14:33 WBC 5.7 RBC 3.12 L Hgb 9.8 L Hct 31.2 L MCV 100.0 MCH 31.4 MCHC 31.4 L RDW 23.2 H Plt Count 164 MPV 9.9 Immature Gran % (Auto) 0.4 Neut % (Auto) 66.7 Lymph % (Auto) 22.8 [place] % (Auto) 7.2 Eos % (Auto) 2.5 Baso % (Auto) 0.4 Lymph # (Auto) 1.30 [place] # (Auto) 0.4 Eos # (Auto) 0.1 Baso # (Auto) 0.0 Abs Immat Gran (auto) 0.02 Absolute Neuts (auto) 3.8 Absolute Nucleated RBC 0.000 Nucleated RBC % 0.0 Platelet Estimate Adequate Anisocytosis 1+ Macrocytosis 1+ Schistocytes None seen Sodium 136 L Potassium 3.4 Chloride 108 H Carbon Dioxide 25 Anion Gap 3 L BUN 13 Creatinine 0.60 L Estim Creat Clear Calc 69 Estimated GFR > 60 Glucose 159 H POC Capillary Glucose 161 H 172 H Calcium 8.4 Phosphorus 2.7 Total Bilirubin 1.1 AST 27 ALT 10 Alkaline Phosphatase 141 H C-Reactive Protein 1.4 H Total Protein 6.0 L Albumin 2.6 L
[2024-06-08] MEDS: HYDROcodone/acetaminophen (*CRX) 5-325 MG TABLET 1 TAB PO (18:51)
[2024-06-08 20:00] VITALS: PULSE 75; RESP 16; O2SAT 97
[2024-06-08] MEDS: rOPINIRole HCL 0.25 MG TABLET PO (20:29)
[2024-06-08 20:54] VITALS: BP 150/57; PULSE 75; RESP 16; TEMP 36.2; O2SAT 97
[2024-06-09] LABS: Glucose Point of Care 187 mg/dl (65-105)
[2024-06-09] MEDS: HYDROcodone/acetaminophen (*CRX) 5-325 MG TABLET 1 TAB PO ×4 (02:18→20:44)
[2024-06-09 06:00] VITALS: BP 151/53; PULSE 74; RESP 18; TEMP 36.2; O2SAT 97
[2024-06-09 06:04] LABS: Glucose Point of Care 136 mg/dl (65-105)
[2024-06-09 06:19] LABS: Basophils Percent Auto 0.4 % (0.2-1.2); Eosinophils Absolute Auto 0.2 K/mm3 (0-0.3); Eosinophils Percent Auto 3.2 % (0-4.4); Hematocrit 29.9 % (37.0-47.0); Hemoglobin 9.5 g/dL (12.0-15.0); Immature Granulocyte Absolute 0.02 K/mm3 (0.00-0.031); Immature Granulocyte Percent A 0.3 % (0-0.5); Lymphocytes Absolute Auto 1.67 K/mm3 (0.9-3.2); Lymphocytes Percent Auto 24.6 % (18.3-44.2); Mean Corpuscular HGB Conc 31.8 g/dl (32-36); Mean Corpuscular Hemoglobin 31.6 pg (26-34); Mean Corpuscular Volume 99.3 fl (80-100); Mean Platelet Volume 9.4 fl (7.4-10.4); Monocytes Absolute Auto 0.5 K/mm3 (0.1-0.6); Monocytes Percent Auto 7.9 % (2.6-8.5); Neutrophils Absolute Auto 4.3 K/mm3 (1.3-6.7); Neutrophils Percent Auto 63.6 % (45.5-73.1); Platelet Count Result 173 k/mm3 (150-375); Red Blood Count 3.01 M/mm3 (4.2-5.4); Red Cell Distribution Width 22.7 % (11.5-14.5); White Blood Count 6.8 K/mm3 (4.5-10.0)
[2024-06-09 06:31] LABS: Alanine Aminotransferase 10 U/L (6-35); Albumin Level 2.4 g/dL (3.5-5.1); Alkaline Phosphatase 123 U/L (38-126); Anion Gap 1 mmol/L (4-12); Aspartate Amino Transferase 33 U/L (14-36); Bilirubin,Total 1.2 mg/dL (0.2-1.3); Blood Urea Nitrogen 11 mg/dL (7-17); Calcium 8.1 mg/dL (8.4-10.2); Carbon Dioxide 26 mmol/L (22-30); Chloride 107 mmol/L (98-107); Estimated CRCL calculation 69 ml/min; Estimated Glomerular Filt Rate > 60; Glucose 139 mg/dL (65-110); Potassium 3.8 mmol/L (3.4-5.0); Sodium 134 mmol/L (137-145)
[2024-06-09 06:54] LABS: Anisocytosis 2+; Macrocytosis 1+ (NORMAL); Platelet Estimate Adequate (Adequate); Schistocytes None Seen
[2024-06-09] MEDS: CENTRAL LINE FLUSH 10 ML IV PUSH ×3 (07:22→20:54)
[2024-06-09 09:22] VITALS: PULSE 74
[2024-06-09] MEDS: rifAXIMin 550 MG TABLET PO ×2 (09:22→20:44)
[2024-06-09] MEDS: MOXIFLOXACIN HCL 0.5% 3 ML OPHTH SOLN 1 DROP LEFT EYE ×2 (09:22→20:45)
[2024-06-09] MEDS: PROPRANOLOL HCL 20 MG TABLET PO ×2 (09:22→20:44)
[2024-06-09] MEDS: KETOROLAC 0.5% OP SOLN 5 ML BOTTLE 1 DROP LEFT EYE ×3 (09:22→19:00)
[2024-06-09] MEDS: FERROUS SULFATE 325 MG TABLET DR PO ×2 (09:22→19:00)
[2024-06-09] MEDS: SPIRONOLACTONE 50 MG TABLET 100 MG PO (09:23)
[2024-06-09] MEDS: FUROSEMIDE 20 MG TABLET PO ×2 (09:23→18:59)
[2024-06-09] MEDS: LIDOCAINE 5% PATCH 2 PATCH TOPICAL (09:25)
[2024-06-09] MEDS: CALCIUM/VITAMIN D 500 MG/5 MCG (200 I.U.) TABLET PO ×2 (09:32→19:00)
--- NOTE | 2024-06-09 10:15 | PM.IMPN ---
Progress Note: A&P Assessment and Plan (1) Symptomatic anemia: Code(s): D64.9 - Anemia, unspecified Status: Acute Assessment and Plan: History of anemia at baseline. She had dark tarry stools at [facility] and Hgb dropped to 5.7. She received 2 units of PRBCs. History of internal hemorrhoids and was on Xarelto for DVT prophylaxis postoperatively; Xarelto stopped. Also noted to have SQ hematoma measuring 18.5x 6.5cm lateral to the right hip. Hgb climbed to the 8 range and remaining stable since Acute blood loss anemia from GI source and from post-op hematoma with underlying chronic anemia. GI and Ortho following. Endoscopy being considered. Continue Protonix b.i.d. (2) Bacteremia: Code(s): R78.81 - Bacteremia Status: Acute Assessment and Plan: Patient had BCx drawn on admission. No fevers and WBC was normal. CXR clear. UA clear. BCx 06/02: growing MSSA both aerobic sets. WCx 06/02: showing Klebsiella pneumoniae that is olmos sensitive and Enterococcus species sensitive to Amp and Vanc Paracentesis Cx 06/04: NGTD Repeat BCx 06/05: NGTD Rt hip hematoma 06/05 was aspirated 45ml of red, opaque fluid and cultured. Gram stain showing no organisms or WBC. Cultures with no growth. Rt hip joint aspiration 06/05 yielding no fluid. Patient had one dose of Levaquin on 06/02 and placed on doxycycline on 06/03. Changed to vancomycin and Rocephin 2g 06/04 after discussing case with [facility] pharmacy. Source of MSSA bacteremia unclear but suspect from hematoma from recent hip surgery or from joint infection. Wound culture not felt to be accurate. Recent wound cultures negative but patient has been on abx. Vanco stopped. Follow up on culture results. Continue Rocephin. PICC line placed. (3) Melena: Code(s): K92.1 - Melena Status: Acute Assessment and Plan: As above (4) Pancytopenia: Code(s): D61.818 - Other pancytopenia Status: Acute Assessment and Plan: WBC normal on admission but then dropped to 3200. This is not uncommon for this patient and probably related to her cirrhosis. WBC normal now Anemia as mentioned above. Plt count was normal but dropped to 77K just prior to admission. Probably related to splenomegaly, cirrhosis, current infection and sequestration. Repeat plt count normal. Monitor (5) Cirrhosis of liver with ascites: Code(s): K74.60 - Unspecified cirrhosis of liver; R18.8 - Other ascites Status: Acute Assessment and Plan: Abdomen/pelvis CT from 05/31/2024 showed moderate ascites with cirrhosis and splenomegaly. Hepatitis panel was negative. Liver enzymes within normal limits, TBili normal. Ammonia level negative Paracentesis 06/04 yielded 2200 ml of yellow fluid Ascitic fluid Cx NGTD Continue Rifaximin and Spironolactone. Lactulose stopped due to diarrhea; diarrhea better. GI following. Resume lactulose at lower dose in 1-2 days depending on stool output. (6) DVT (deep venous thrombosis): Code(s): I82.409 - Acute embolism and thrombosis of unspecified deep veins of unspecified lower extremity Status: Acute Assessment and Plan: Patient noted to have lower extremity edema. Doppler showing right peroneal veins DVT. Not able to anticoagulate so Gen Surg consulted for filter. Patient underwent IVC filter placement 06/06 Start anticoagulation when able. (7) Diastolic dysfunction: Code(s): I51.89 - Other ill-defined heart diseases Status: Chronic Assessment and Plan: Echo 02/27/23 showed a normal LV systolic function with an estimated EF of 65-70%, diastolic dysfunction, moderate aortic valve sclerosis, moderate mitral and tricuspid valve regurgitation, mild pulmonary hypertension Added Lasix to improve fluid status. Tolerating this well. (8) Closed fracture of neck of right femur: Qualifiers: Encounter type: initial encounter Qualified Code(s): S72.001A - Fracture of unspecified part of neck of right femur, initial encounter for closed fracture Code(s): S72.001A - Fracture of unspecified part of neck of right femur, initial encounter for closed fracture Status: Acute Assessment and Plan: Patient with right femur fx S/P right bipolar hip replacement with Dr. Balbuena on 05/16/24 Surgical incision with jennie, ecchymosis noted right thigh and lateral hip Recently at [facility] for swing bed program for rehab Dr. Balbuena following Continue pain control Continue PT and OT (9) Diabetes: Code(s): E11.9 - Type 2 diabetes mellitus without complications Status: Chronic Assessment and Plan: A1C 5.2 (low due to anemia?). The patient's blood glucose was reviewed on 06/09 Glucose remains reasonably well controlled. Continue AccuCheks covering with sliding scale. Hypoglycemia protocol available as needed. Continue to monitor Plan Restless leg - Requip resumed. Asking for Gabapentin to be resumed. Will restart Jude 100mg qhs. DVT prophylaxis - IVC filter Code status - full Subjective Date/time seen: 06/09/24 10:15 Interval history: 84yo female with anemia, arthritis, dyslipidemia, gout, HTN, DM, liver cancer, former smoker who presented to [facility] for swing bed rehab program on 05/22/2024 from [facility] after having a right bipolar hip replacement done on 05/16/2024. While at rehab, patient became more confused with increased pain and started passing bright red blood per rectum. She was on Xarelto for DVT prophylaxis. Hgb dropped to 5.7 requiring 2 units of PRBC at [facility] with the 2nd unit infusing en route to [place]. No chest pain or shortness of breath. Patient slept well. Diarrhea has improved. Hip pain is controlled. Exam Narrative: AF 97.1 151/53 741 8 97% ra Gen - NARD Chest -clear anteriorly in the flanks CV - RRR S1/S2 Abd -soft. Obese. Nontender. No left groin hematoma. Right hip dressing is clean, dry and intact. Ext -trace LE edema Psych - Nml mood and affect Skin - Warm and dry Objective Data Vital Signs Vital Signs: Vital Signs - 24 hr 06/08/24 14:00 06/08/24 20:54 06/08/24 20:00 Temperature 97.7 F 97.1 F L Pulse Rate 74 75 75 Respiratory Rate 20 16 16 Blood Pressure 129/47 L 150/57 H Pulse Oximetry 98 97 97 Oxygen Delivery Room Air 06/09/24 06:00 06/09/24 09:22 Temperature 97.1 F L Pulse Rate 74 74 Respiratory Rate 18 Blood Pressure 151/53 H Pulse Oximetry 97 Oxygen Delivery Intake/Output Intake/Output: Intake & Output 06/06/24 06/07/24 06/08/24 06/09/24 23:59 23:59 23:59 23:59 Intake Total 1870 590 770 720 Output Total 600 150 Balance 1270 590 620 720 Meds/Results Medications: Active Medications Generic Name Dose Route Start Last Admin Trade Name Freq PRN Reason Stop Dose Admin Acetaminophen 650 mg 06/08/24 12:14 Acetaminophen 325 Mg Tablet PO Q6H PRN Mild Pain (1-5) Or Fever Hydrocodone Bitart/Acetaminophen 1 tab 06/08/24 12:14 06/09/24 09:32 Hydrocodone/Acetaminophen (*Crx) 5-325 Mg Tablet PO 1 tab Q6H PRN Administration Pain Rated 6 or Greater Allopurinol 100 mg 06/03/24 09:00 06/07/24 10:04 Allopurinol 100 Mg Tablet PO 100 mg [email or web address] JOSE Administration Benzonatate 200 mg 06/07/24 07:08 Benzonatate 100 Mg Capsule PO TID PRN Cough Calcium Carbonate 500 mg 06/02/24 09:00 06/09/24 09:32 Calcium/Vitamin D 500 Mg/5 Mcg (200 I.U.) Tablet PO 500 mg BID JOSE Administration Dextrose 12.5 gm 06/01/24 20:32 Dextrose 50% 25 Gm/50 Ml Syringe IV PUSH PRN PRN Hypoglycemia Protocol Ferrous Sulfate 325 mg 06/02/24 09:00 06/09/24 09:22 Ferrous Sulfate [address] PO 325 mg BID JOSE Administration Furosemide 20 mg 06/07/24 18:10 06/09/24 09:23 Furosemide 20 Mg Tablet PO 20 mg BID JOSE Administration Glucagon 1 mg 06/01/24 20:32 Glucagon For Inj 1 Mg Vial IM PRN PRN Hypoglycemia Protocol Glucose 15 gm 06/01/24 20:32 Glucose Oral Gel 15 Gm Of Glucse In 37.5 Gm Tube PO PRN PRN Hypoglycemia Protocol Guaifenesin/Dextromethorphan 10 ml 06/04/24 14:49 Guaifenesin/Dextromethorphan 10 Ml Udc PO Q4H PRN Cough Dextrose 1,000 mls @ 100 mls/hr 06/01/24 20:32 Dextrose 5% 1,000 Ml IVPB PRN PRN Hypoglycemia Protocol Ceftriaxone Sodium 2 gm in 100 mls @ 200 mls/hr 06/04/24 14:00 06/08/24 17:43 Rocephin 2 Gm/Ns 100 Ml IVPB Infused Q24H JOSE Infusion Insulin Aspart 3 - 6 units 06/02/24 00:00 06/09/24 07:20 Insulin Aspart (*Bkc) 100 Units/Ml SUB-Q Not Given Q6HR [facility] Protocol Ketorolac Tromethamine 1 drop 06/01/24 20:50 06/09/24 09:22 Ketorolac 0.5% Op Soln 5 Ml Bottle LEFT EYE 1 drop TID JOSE Administration Lidocaine 2 patch 06/02/24 09:00 06/09/24 09:25 Lidocaine 5% Patch TOPICAL 2 patch DAILY JOSE Administration Moxifloxacin HCl 1 drop 06/01/24 21:00 06/09/24 09:22 Moxifloxacin Hcl 0.5% 3 Ml Ophth Soln LEFT EYE 1 drop Q12H JOSE Administration Propranolol HCl 20 mg 06/01/24 21:00 06/09/24 09:22 Propranolol Hcl 20 Mg Tablet PO 20 mg Q12H JOSE Administration Rifaximin 550 mg 06/02/24 21:00 06/09/24 09:22 Rifaximin 550 Mg Tablet PO 550 mg Q12HR JOSE Administration Ropinirole HCl 0.25 mg 06/01/24 21:00 06/08/24 20:29 Ropinirole Hcl 0.25 Mg Tablet PO 0.25 mg HS JOSE Administration Sodium Chloride 10 ml 06/08/24 14:00 06/09/24 07:22 Central Line Flush IV PUSH 10 ml Q8HR JOSE Administration Sodium Chloride 10 ml 06/08/24 13:55 Central Line Flush IV PUSH PRN PRN with TPN bag changes Sodium Chloride 20 ml 06/08/24 13:55 Central Line Flush IV PUSH PRN PRN after blood draws Spironolactone 100 mg 06/05/24 09:00 06/09/24 09:23 Spironolactone 50 Mg Tablet PO 100 mg QAM JOSE Administration Radiology Results: ITS Impressions Venous Doppler Study 06/02/24 10:48 IMPRESSION: 1. Deep vein thrombosis involving the right peroneal veins. ADDENDUM: 06/02/24 1058 I discussed this result with Latoya Hernandez. Chest X-Ray 06/02/24 11:21 IMPRESSION: 1. No acute cardiopulmonary disease. Lower Extremity CT 06/02/24 12:35 IMPRESSION: 1. Subcutaneous hematoma lateral to the right hip. 2. Comminuted fracture of greater trochanter of proximal right femur. 3. Bipolar right hip hemiarthroplasty in near-anatomic alignment. 4. Mild right hip osteoarthritis. 5. Moderate volume of ascites. Paracentesis Ultrasound 06/04/24 15:04 IMPRESSION: 1. Successful ultrasound-guided paracentesis yielding 2200 mL of yellow fluid. Joint Aspiration/Injection 06/05/24 17:18 IMPRESSION: 1. Ultrasound-guided needle aspiration of the right hip joint yielding no fluid. Cyst Aspiration Ultrasound 06/05/24 17:20 IMPRESSION: 1. Ultrasound-guided needle aspiration of a subcutaneous abscess lateral to right hip yielding 45 mL red, opaque fluid. Labs Labs: Laboratory Results - last 24 hr 06/08/24 06/08/24 06/09/24 14:33 23:52 05:20 WBC RBC Hgb Hct MCV MCH MCHC RDW Plt Count MPV Immature Gran % (Auto) Neut % (Auto) Lymph % (Auto) [place] % (Auto) Eos % (Auto) Baso % (Auto) Lymph # (Auto) [place] # (Auto) Eos # (Auto) Baso # (Auto) Abs Immat Gran (auto) Absolute Neuts (auto) Absolute Nucleated RBC Nucleated RBC % Platelet Estimate Anisocytosis Macrocytosis Schistocytes Sodium Potassium Chloride Carbon Dioxide Anion Gap BUN Creatinine Estim Creat Clear Calc Estimated GFR Glucose POC Capillary Glucose 172 H 187 H 136 H Calcium Total Bilirubin AST ALT Alkaline Phosphatase Total Protein Albumin 06/09/24 06:10 WBC 6.8 RBC 3.01 L Hgb 9.5 L Hct 29.9 L MCV 99.3 MCH 31.6 MCHC 31.8 L RDW 22.7 H Plt Count 173 MPV 9.4 Immature Gran % (Auto) 0.3 Neut % (Auto) 63.6 Lymph % (Auto) 24.6 [place] % (Auto) 7.9 Eos % (Auto) 3.2 Baso % (Auto) 0.4 Lymph # (Auto) 1.67 [place] # (Auto) 0.5 Eos # (Auto) 0.2 Baso # (Auto) 0.0 Abs Immat Gran (auto) 0.02 Absolute Neuts (auto) 4.3 Absolute Nucleated RBC 0.000 Nucleated RBC % 0.0 Platelet Estimate Adequate Anisocytosis 2+ Macrocytosis 1+ Schistocytes None seen Sodium 134 L Potassium 3.8 Chloride 107 Carbon Dioxide 26 Anion Gap 1 L BUN 11 Creatinine 0.60 L Estim Creat Clear Calc 69 Estimated GFR > 60 Glucose 139 H POC Capillary Glucose Calcium 8.1 L Total Bilirubin 1.2 AST 33 ALT 10 Alkaline Phosphatase 123 Total Protein 5.0 L Albumin 2.4 L
[2024-06-09 11:57] LABS: Glucose Point of Care 160 mg/dl (65-105)
[2024-06-09] MEDS: cefTRIAXone 2 GM/NS 100 ML 2 GM/100 ML BAG IVPB (13:33)
--- NOTE | 2024-06-09 15:20 | WPDGIPROGNO ---
Progress Note: A&P Assessment and Plan (1) Symptomatic anemia: Code(s): D64.9 - Anemia, unspecified Status: Acute Assessment and Plan: probably multifactorial from hematoma, previous surgery, cirrhosis, etc monitor for signs of bleeding h/h stable 9-10 (2) Diarrhea: Code(s): R19.7 - Diarrhea, unspecified Status: Acute Assessment and Plan: she was on lactulose because cirrhosis and some confusion, also other laxatives medications discontinued and no more report of diarrhea will monitor (3) Cirrhosis: Code(s): K74.60 - Unspecified cirrhosis of liver Status: Acute Assessment and Plan: medical management will follow as needed, follow-up in office (4) Altered mental status: Code(s): R41.82 - Altered mental status, unspecified Status: Acute Assessment and Plan: she is awake and alert (5) Closed fracture of neck of right femur: Qualifiers: Encounter type: initial encounter Qualified Code(s): S72.001A - Fracture of unspecified part of neck of right femur, initial encounter for closed fracture Code(s): S72.001A - Fracture of unspecified part of neck of right femur, initial encounter for closed fracture Status: Acute (6) DVT (deep venous thrombosis): Code(s): I82.409 - Acute embolism and thrombosis of unspecified deep veins of unspecified lower extremity Status: Acute Assessment and Plan: s/p IVC filter, can not get blood thinner given recent symptomatic anemia (7) History of gastric bypass: Code(s): Z98.84 - Bariatric surgery status Status: Acute Subjective Date/time seen: 06/09/24 15:20 Interval history: no changes, no more diarrhea and she is more comfortable and eating more Review of Systems Review of Systems: All systems reviewed & are unremarkable except as noted in HPI and below Exam Narrative: Gen - NARD, chronically ill appearing HEENT- normal nares neck supple Chest - right base crackles o/w clear. CV - RRR S1/S2 Abd - Soft, ND/NT, +BS Ext - decreased LE edema Psych - Nml mood and affect Skin - Warm and dry neuro- awake and alert Objective Data Vital Signs Vital Signs: Vital Signs - 24 hr 06/08/24 20:54 06/08/24 20:00 06/09/24 06:00 Temperature 97.1 F L 97.1 F L Pulse Rate 75 75 74 Respiratory Rate 16 16 18 Blood Pressure 150/57 H 151/53 H Pulse Oximetry 97 97 97 Oxygen Delivery Room Air 06/09/24 09:22 06/09/24 08:00 Temperature Pulse Rate 74 Respiratory Rate Blood Pressure Pulse Oximetry Oxygen Delivery Room Air Intake/Output Intake/Output: Intake & Output 06/06/24 06/07/24 06/08/24 06/09/24 23:59 23:59 23:59 23:59 Intake Total 1870 590 770 810 Output Total 600 150 Balance 1270 590 620 810 Meds/Results Medications: Active Medications Generic Name Dose Route Start Last Admin Trade Name Freq PRN Reason Stop Dose Admin Acetaminophen 650 mg 06/08/24 12:14 Acetaminophen 325 Mg Tablet PO Q6H PRN Mild Pain (1-5) Or Fever Hydrocodone Bitart/Acetaminophen 1 tab 06/08/24 12:14 06/09/24 09:32 Hydrocodone/Acetaminophen (*Crx) 5-325 Mg Tablet PO 1 tab Q6H PRN Administration Pain Rated 6 or Greater Allopurinol 100 mg 06/03/24 09:00 06/07/24 10:04 Allopurinol 100 Mg Tablet PO 100 mg [id number] JOSE Administration Benzonatate 200 mg 06/07/24 07:08 Benzonatate 100 Mg Capsule PO TID PRN Cough Calcium Carbonate 500 mg 06/02/24 09:00 06/09/24 09:32 Calcium/Vitamin D 500 Mg/5 Mcg (200 I.U.) Tablet PO 500 mg BID JOSE Administration Dextrose 12.5 gm 06/01/24 20:32 Dextrose 50% 25 Gm/50 Ml Syringe IV PUSH PRN PRN Hypoglycemia Protocol Ferrous Sulfate 325 mg 06/02/24 09:00 06/09/24 09:22 Ferrous Sulfate [address] PO 325 mg BID JOSE Administration Furosemide 20 mg 06/07/24 18:10 06/09/24 09:23 Furosemide 20 Mg Tablet PO 20 mg BID JOSE Administration Glucagon 1 mg 06/01/24 20:32 Glucagon For Inj 1 Mg Vial IM PRN PRN Hypoglycemia Protocol Glucose 15 gm 06/01/24 20:32 Glucose Oral Gel 15 Gm Of Glucse In 37.5 Gm Tube PO PRN PRN Hypoglycemia Protocol Guaifenesin/Dextromethorphan 10 ml 06/04/24 14:49 Guaifenesin/Dextromethorphan 10 Ml Udc PO Q4H PRN Cough Dextrose 1,000 mls @ 100 mls/hr 06/01/24 20:32 Dextrose 5% 1,000 Ml IVPB PRN PRN Hypoglycemia Protocol Ceftriaxone Sodium 2 gm in 100 mls @ 200 mls/hr 06/04/24 14:00 06/09/24 13:33 Rocephin 2 Gm/Ns 100 Ml IVPB 150 mls/hr Q24H JOSE Administration Insulin Aspart 3 - 6 units 06/02/24 00:00 06/09/24 12:54 Insulin Aspart (*Bkc) 100 Units/Ml SUB-Q Not Given Q6HR JOSE Protocol Ketorolac Tromethamine 1 drop 06/01/24 20:50 06/09/24 12:54 Ketorolac 0.5% Op Soln 5 Ml Bottle LEFT EYE 1 drop TID JOSE Administration Lidocaine 2 patch 06/02/24 09:00 06/09/24 09:25 Lidocaine 5% Patch TOPICAL 2 patch DAILY JOSE Administration Moxifloxacin HCl 1 drop 06/01/24 21:00 06/09/24 09:22 Moxifloxacin Hcl 0.5% 3 Ml Ophth Soln LEFT EYE 1 drop Q12H JOSE Administration Propranolol HCl 20 mg 06/01/24 21:00 06/09/24 09:22 Propranolol Hcl 20 Mg Tablet PO 20 mg Q12H JOSE Administration Rifaximin 550 mg 06/02/24 21:00 06/09/24 09:22 Rifaximin 550 Mg Tablet PO 550 mg Q12HR JOSE Administration Ropinirole HCl 0.25 mg 06/01/24 21:00 06/08/24 20:29 Ropinirole Hcl 0.25 Mg Tablet PO 0.25 mg HS JOSE Administration Sodium Chloride 10 ml 06/08/24 14:00 06/09/24 15:02 Central Line Flush IV PUSH 10 ml Q8HR JOSE Administration Sodium Chloride 10 ml 06/08/24 13:55 Central Line Flush IV PUSH PRN PRN with TPN bag changes Sodium Chloride 20 ml 06/08/24 13:55 Central Line Flush IV PUSH PRN PRN after blood draws Spironolactone 100 mg 06/05/24 09:00 06/09/24 09:23 Spironolactone 50 Mg Tablet PO 100 mg QAM JOSE Administration Radiology Results: ITS Impressions Venous Doppler Study 06/02/24 10:48 IMPRESSION: 1. Deep vein thrombosis involving the right peroneal veins. ADDENDUM: 06/02/24 1058 I discussed this result with Latoya Hernandez. Chest X-Ray 06/02/24 11:21 IMPRESSION: 1. No acute cardiopulmonary disease. Lower Extremity CT 06/02/24 12:35 IMPRESSION: 1. Subcutaneous hematoma lateral to the right hip. 2. Comminuted fracture of greater trochanter of proximal right femur. 3. Bipolar right hip hemiarthroplasty in near-anatomic alignment. 4. Mild right hip osteoarthritis. 5. Moderate volume of ascites. Paracentesis Ultrasound 06/04/24 15:04 IMPRESSION: 1. Successful ultrasound-guided paracentesis yielding 2200 mL of yellow fluid. Joint Aspiration/Injection 06/05/24 17:18 IMPRESSION: 1. Ultrasound-guided needle aspiration of the right hip joint yielding no fluid. Cyst Aspiration Ultrasound 06/05/24 17:20 IMPRESSION: 1. Ultrasound-guided needle aspiration of a subcutaneous abscess lateral to right hip yielding 45 mL red, opaque fluid. Labs Labs: Laboratory Results - last 24 hr 06/08/24 06/08/24 06/09/24 14:33 23:52 05:20 WBC RBC Hgb Hct MCV MCH MCHC RDW Plt Count MPV Immature Gran % (Auto) Neut % (Auto) Lymph % (Auto) [place] % (Auto) Eos % (Auto) Baso % (Auto) Lymph # (Auto) [place] # (Auto) Eos # (Auto) Baso # (Auto) Abs Immat Gran (auto) Absolute Neuts (auto) Absolute Nucleated RBC Nucleated RBC % Platelet Estimate Anisocytosis Macrocytosis Schistocytes Sodium Potassium Chloride Carbon Dioxide Anion Gap BUN Creatinine Estim Creat Clear Calc Estimated GFR Glucose POC Capillary Glucose 172 H 187 H 136 H Calcium Total Bilirubin AST ALT Alkaline Phosphatase Total Protein Albumin 06/09/24 06/09/24 06:10 11:43 WBC 6.8 RBC 3.01 L Hgb 9.5 L Hct 29.9 L MCV 99.3 MCH 31.6 MCHC 31.8 L RDW 22.7 H Plt Count 173 MPV 9.4 Immature Gran % (Auto) 0.3 Neut % (Auto) 63.6 Lymph % (Auto) 24.6 [place] % (Auto) 7.9 Eos % (Auto) 3.2 Baso % (Auto) 0.4 Lymph # (Auto) 1.67 [place] # (Auto) 0.5 Eos # (Auto) 0.2 Baso # (Auto) 0.0 Abs Immat Gran (auto) 0.02 Absolute Neuts (auto) 4.3 Absolute Nucleated RBC 0.000 Nucleated RBC % 0.0 Platelet Estimate Adequate Anisocytosis 2+ Macrocytosis 1+ Schistocytes None seen Sodium 134 L Potassium 3.8 Chloride 107 Carbon Dioxide 26 Anion Gap 1 L BUN 11 Creatinine 0.60 L Estim Creat Clear Calc 69 Estimated GFR > 60 Glucose 139 H POC Capillary Glucose 160 H Calcium 8.1 L Total Bilirubin 1.2 AST 33 ALT 10 Alkaline Phosphatase 123 Total Protein 5.0 L Albumin 2.4 L
[2024-06-09 15:34] VITALS: BP 132/45; PULSE 77; RESP 16; TEMP 36.8; O2SAT 98
[2024-06-09 17:21] LABS: Glucose Point of Care 170 mg/dl (65-105)
[2024-06-09 20:00] VITALS: PULSE 86; RESP 16; O2SAT 97
[2024-06-09 20:36] VITALS: BP 140/54; PULSE 86; RESP 16; TEMP 36.7; O2SAT 97
[2024-06-09] MEDS: GABAPENTIN 100 MG CAPSULE PO (20:44)
[2024-06-09] MEDS: rOPINIRole HCL 0.25 MG TABLET PO (20:45)
[2024-06-09 22:48] LABS: Glucose Point of Care 203 mg/dl (65-105)
[2024-06-10 05:41] LABS: Basophils Percent Auto 0.5 % (0.2-1.2); Eosinophils Absolute Auto 0.3 K/mm3 (0-0.3); Eosinophils Percent Auto 5.3 % (0-4.4); Hematocrit 29.3 % (37.0-47.0); Hemoglobin 9.2 g/dL (12.0-15.0); Immature Granulocyte Absolute 0.02 K/mm3 (0.00-0.031); Immature Granulocyte Percent A 0.3 % (0-0.5); Lymphocytes Absolute Auto 1.35 K/mm3 (0.9-3.2); Lymphocytes Percent Auto 23.1 % (18.3-44.2); Mean Corpuscular HGB Conc 31.4 g/dl (32-36); Mean Corpuscular Hemoglobin 31.4 pg (26-34); Mean Platelet Volume 9.5 fl (7.4-10.4); Monocytes Absolute Auto 0.5 K/mm3 (0.1-0.6); Monocytes Percent Auto 8.9 % (2.6-8.5); Neutrophils Absolute Auto 3.6 K/mm3 (1.3-6.7); Neutrophils Percent Auto 61.9 % (45.5-73.1); Platelet Count Result 153 k/mm3 (150-375); Red Blood Count 2.93 M/mm3 (4.2-5.4); Red Cell Distribution Width 22.4 % (11.5-14.5); White Blood Count 5.8 K/mm3 (4.5-10.0)
[2024-06-10 05:53] LABS: Alanine Aminotransferase 10 U/L (6-35); Albumin Level 2.3 g/dL (3.5-5.1); Alkaline Phosphatase 128 U/L (38-126); Anion Gap 2 mmol/L (4-12); Aspartate Amino Transferase 29 U/L (14-36); Bilirubin,Total 1.1 mg/dL (0.2-1.3); Blood Urea Nitrogen 11 mg/dL (7-17); Calcium 7.8 mg/dL (8.4-10.2); Carbon Dioxide 25 mmol/L (22-30); Chloride 105 mmol/L (98-107); Estimated CRCL calculation 69 ml/min; Estimated Glomerular Filt Rate > 60; Glucose 146 mg/dL (65-110); Potassium 3.6 mmol/L (3.4-5.0); Sodium 132 mmol/L (137-145)
[2024-06-10 05:53] LABS: Glucose Point of Care 146 mg/dl (65-105)
[2024-06-10 06:00] VITALS: BP 151/55; PULSE 76; RESP 18; TEMP 37; O2SAT 99
[2024-06-10] MEDS: CENTRAL LINE FLUSH 10 ML IV PUSH ×2 (06:54→13:32)
[2024-06-10] MEDS: FERROUS SULFATE 325 MG TABLET DR PO (08:14)
[2024-06-10] MEDS: FUROSEMIDE 20 MG TABLET PO (08:14)
[2024-06-10] MEDS: allopurinoL 100 MG TABLET PO (08:14)
[2024-06-10 08:15] VITALS: PULSE 79
[2024-06-10] MEDS: PROPRANOLOL HCL 20 MG TABLET PO (08:15)
[2024-06-10] MEDS: CALCIUM/VITAMIN D 500 MG/5 MCG (200 I.U.) TABLET PO (08:16)
[2024-06-10] MEDS: SPIRONOLACTONE 50 MG TABLET 100 MG PO (08:16)
[2024-06-10] MEDS: rifAXIMin 550 MG TABLET PO (08:16)
[2024-06-10] MEDS: HYDROcodone/acetaminophen (*CRX) 5-325 MG TABLET 1 TAB PO ×2 (08:17→16:01)
[2024-06-10] MEDS: LIDOCAINE 5% PATCH 2 PATCH TOPICAL (08:17)
[2024-06-10] MEDS: KETOROLAC 0.5% OP SOLN 5 ML BOTTLE 1 DROP LEFT EYE ×2 (08:17→13:32)
[2024-06-10] MEDS: MOXIFLOXACIN HCL 0.5% 3 ML OPHTH SOLN 1 DROP LEFT EYE (08:17)
[2024-06-10 11:23] LABS: Glucose Point of Care 184 mg/dl (65-105)
--- NOTE | 2024-06-10 11:28 | PCPTNOTE ---
Patient refused and requested to be re-attempted in the afternoon.
[2024-06-10] MEDS: cefTRIAXone 2 GM/NS 100 ML 2 GM/100 ML BAG IVPB (13:32)
[2024-06-10 14:00] VITALS: BP 131/55; PULSE 82; RESP 18; TEMP 36.5; O2SAT 98
--- NOTE | 2024-06-10 15:14 | P.DS_ITS ---
DS: Admitting Diagnosis Discharge Date 06/10/24 Admitting Diagnosis Confused, rectal bleeding. DS: Discharge Diagnosis Discharge Diagnosis (1) Symptomatic anemia: Code(s): D64.9 - Anemia, unspecified Status: Acute (2) Bacteremia: Code(s): R78.81 - Bacteremia Status: Acute (3) Melena: Code(s): K92.1 - Melena Status: Acute (4) Pancytopenia: Code(s): D61.818 - Other pancytopenia Status: Acute (5) Cirrhosis of liver with ascites: Code(s): K74.60 - Unspecified cirrhosis of liver; R18.8 - Other ascites Status: Acute (6) DVT (deep venous thrombosis): Code(s): I82.409 - Acute embolism and thrombosis of unspecified deep veins of unspecified lower extremity Status: Acute (7) Diastolic dysfunction: Code(s): I51.89 - Other ill-defined heart diseases Status: Chronic (8) Closed fracture of neck of right femur: Qualifiers: Encounter type: initial encounter Qualified Code(s): S72.001A - Fracture of unspecified part of neck of right femur, initial encounter for closed fracture Code(s): S72.001A - Fracture of unspecified part of neck of right femur, initial encounter for closed fracture Status: Acute (9) Diabetes: Code(s): E11.9 - Type 2 diabetes mellitus without complications Status: Chronic Assessment and Plan: A1C 5.2 (low due to anemia?). The patient's blood glucose was reviewed on 06/09 Glucose remains reasonably well controlled. Continue AccuCheks covering with sliding scale. Hypoglycemia protocol available as needed. Continue to monitor DS: Summary Hospital Course Reason for hospitalization: 84yo female with anemia, arthritis, dyslipidemia, gout, HTN, DM, liver cancer, former smoker who presented to [facility] for swing bed rehab program on 05/22/2024 from [facility] after having a right bipolar hip replacement done on 05/16/2024. While at rehab, patient became more confused with increased pain and started passing bright red blood per rectum. She was on Xarelto for DVT prophylaxis. Hgb dropped to 5.7 requiring 2 units of PRBC at [place] with the 2nd unit infusing en route to [facility]. Please see H&P for details. Hospital Course: The following issues were addressed during her hospital course: (1) Symptomatic anemia: Patient has a history of anemia at baseline. She had bloody stools at [facility] and Hgb dropped to 5.7. She received 2 units of PRBCs. History of internal hemorrhoids and was on Xarelto for DVT prophylaxis postoperatively; Xarelto stopped. Also noted to have SQ hematoma measuring 18.5x 6.5cm lateral to the right hip. Acute blood loss anemia from GI source and from post-op hematoma with underlying chronic anemia. GI and Ortho following. GI decided not to pursue endoscopy this admission. Treated with Protonix. Hgb climbed to the 8 range and remaining stable in the 8-9 range here. (2) Bacteremia: Patient had BCx drawn on admission. No fevers and WBC was normal. CXR clear. UA clear. BCx 06/02 growing MSSA in both aerobic sets. Wound Cx 06/02 showing Klebsiella pneumoniae that is olmos sensitive and Enterococcus species sensitive to Amp and Vanc. The wound culture was felt to be skiin alf and not a true infection. Paracentesis performed and culture 06/04 was no growth. Repeat BCx 06/05 was no growth. Rt hip hematoma 06/05 was aspirated and able to obtain 45ml of red, opaque fluid. Gram stain showed no organisms or WBC. Culture showed no growth. Rt hip joint aspiration 06/05 yielded no fluid to culture. Patient had one dose of Levaquin on 06/02 and placed on doxycycline on 06/03. She was changed to vancomycin and Rocephin 2g 06/04 after discussing case with [facility] pharmacy. Source of MSSA bacteremia unclear but suspect from hematoma or from joint infection. Vancomycin stopped. Plan for Rocephin for 6 weeks then cephalexin 1gm TID for a total of 3 months. PICC line placed. (3) GI bleed: As above (4) Pancytopenia: WBC normal on admission but then dropped to 3200. This is not uncommon for this patient and probably related to her cirrhosis. WBC normalized. Anemia as mentioned above. Plt count was normal but dropped to 77K just prior to admission. Probably related to splenomegaly, cirrhosis, current infection and sequestration. Repeat plt count improved and normalized. (5) Cirrhosis of liver with ascites: Abdomen/pelvis CT from 05/31/2024 showed moderate ascites with cirrhosis and splenomegaly. Hepatitis panel was negative. Liver enzymes within normal limits, TBili normal. Ammonia level normal. Paracentesis 06/04 yielded 2200 ml of yellow fluid. Ascitic fluid Cx no growth. GI was consulted. We continue Rifaximin and Spironolactone. Lactulose stopped due to diarrhea; diarrhea better. Resume lactulose at lower dose when okay with other provider. (6) DVT (deep venous thrombosis): Patient noted to have lower extremity edema. Doppler showing right peroneal veins DVT. Not able to anticoagulate so Gen Surg consulted for IVC filter. Patient underwent IVC filter placement 06/06 and tolerated this procedure well. Start anticoagulation when safe to do so. (7) Diastolic dysfunction: Echo 02/27/23 showed a normal LV systolic function with an estimated EF of 65- 70%, diastolic dysfunction, moderate aortic valve sclerosis, moderate mitral and tricuspid valve regurgitation, mild pulmonary hypertension. Some edema noted but could be related to cirrhosis. We added Lasix to improve fluid status. She tolerated this well. (8) Closed fracture of neck of right femur: Patient with right femur fx S/P right bipolar hip replacement with Dr. Balbuena on 05/16/24. Surgical incision with jennie that were ultimately removed. Ecchymosis noted right thigh hip with known hematoma. Ortho with Dr. Balbuena following. She worked with PT/OT. Bed transfer was moderate and chair transfer was minimal assist. Gait assessment was contact guard. She was up walking to the bathroom with walker here and walked 30 feet. (9) Diabetes: A1C 5.2 (low due to anemia?). The patient's blood glucose was monitor closely with AccuCheks covering with sliding scale. Hypoglycemia protocol was available as needed. (10) Restless leg: Requip resumed. Asking for Gabapentin which was resumed. Family upset about the apparent abruptness of discharge. Offered to keep patient overnight for convenience but they said it would be better to be discharged today then tomorrow. Patient overall did well and was able to be discharged on 06/10/24. Status at Discharge Cognitive/behavioral status at discharge: stable Time Spent with Patient Time attestation: Total time spent providing and/or coordinating discharge services: 38 minutes Time spent: Greater than 30 minutes Exam Narrative: AF 97.7 131/55 82 18 98% ra Gen - NARD Chest - CTA bilaterally, nml RR CV - RRR S1/S2 Abd -soft. Obese. Nontender. Ext -trace-1+ LE edema Psych - Nml mood and affect Skin - Warm and dry DS: Data Data Completed and Pending Labs on day of discharge: Labs from last 24 hours 06/10/24 06/10/24 06/10/24 11:17 05:32 05:05 WBC 5.8 RBC 2.93 L Hgb 9.2 L Hct 29.3 L MCV 100.0 MCH 31.4 MCHC 31.4 L RDW 22.4 H Plt Count 153 MPV 9.5 Immature Gran % (Auto) 0.3 Neut % (Auto) 61.9 Lymph % (Auto) 23.1 [place] % (Auto) 8.9 H Eos % (Auto) 5.3 H Baso % (Auto) 0.5 Lymph # (Auto) 1.35 [place] # (Auto) 0.5 Eos # (Auto) 0.3 Baso # (Auto) 0.0 Abs Immat Gran (auto) 0.02 Absolute Neuts (auto) 3.6 Absolute Nucleated RBC 0.000 Nucleated RBC % 0.0 Sodium 132 L Potassium 3.6 Chloride 105 Carbon Dioxide 25 Anion Gap 2 L BUN 11 Creatinine 0.60 L Estim Creat Clear Calc 69 Estimated GFR > 60 Glucose 146 H POC Capillary Glucose 184 H 146 H Calcium 7.8 L Total Bilirubin 1.1 AST 29 ALT 10 Alkaline Phosphatase 128 H Total Protein 5.0 L Albumin 2.3 L 06/09/24 06/09/24 22:45 17:19 WBC RBC Hgb Hct MCV MCH MCHC RDW Plt Count MPV Immature Gran % (Auto) Neut % (Auto) Lymph % (Auto) [place] % (Auto) Eos % (Auto) Baso % (Auto) Lymph # (Auto) [place] # (Auto) Eos # (Auto) Baso # (Auto) Abs Immat Gran (auto) Absolute Neuts (auto) Absolute Nucleated RBC Nucleated RBC % Sodium Potassium Chloride Carbon Dioxide Anion Gap BUN Creatinine Estim Creat Clear Calc Estimated GFR Glucose POC Capillary Glucose 203 H 170 H Calcium Total Bilirubin AST ALT Alkaline Phosphatase Total Protein Albumin Preliminary micro results at discharge 06/05/24 17:31 Anaerobic Culture - Preliminary Abscess 06/04/24 14:42 Anaerobic Culture - Preliminary Paracentesis Fluid 06/05/24 10:40 Blood Culture - Preliminary Blood 06/05/24 10:27 Blood Culture - Preliminary Blood Discharge Plan Discharge Attending physician on discharge: Sivakumar Love Consulting providers: Mayra Flores; Baltazar Samuel; Lei Balbuena Discharging Clinician: Sivakumar Love Anticipated Discharge Date/Time: 06/10/24 15:19 Patient Disposition: Hospital Swing Bed Activity: other - see discharge instructions Diet: diabetic Discharge Instructions: Please continue with hip precautions. Apply ice as needed to the incision. Continue PT and OT with weight-bearing as tolerated to right hip. Please check glucose before meals and before bed. Record for the doctor's review. Check blood pressure 1 to 2 times a day. Record for the doctor's review. Take precautions to avoid falls. Rise slowly from a lying or sitting position. Pause before standing or walking. Check daily morning weights after voiding. Call the doctor if the patient gains more than 3 lb in 2 days or 5 lb in 1 week. Contact the doctor if the patient has any type of trauma, lightheadedness with standing or other worrisome symptoms. Avoid NSAIDs (ibuprofen, naproxen, Aleve). Tylenol is safe to take. Routine PICC line care. Continue Rocephin 2 gm daily for a total of 6 weeks (through 07/16/24) Check CBC with diff and CMP weekly while on Rocephin Okay to remove PICC line once IV medications are complete and okay with primary provider. Start cephalexin 1gm po Q8hr starting on 07/17/24 for a total of 6 weeks (please renally dose this medication) Follow-up with the provider at the facility. Follow-up with Dr Balbuena in 2-3 weeks. Please call for an appointment. follow-up with Dr Samuel in 3-4 weeks. Please call for an appointment. Thank you for using [facility] for your health care needs. Patient Instructions: Antibiotic Form Stand Alone Forms: General Discharge Information Follow-up/Referrals: Lei Balbuena MD [Physician] - Call for Appointment Rena Asher MD [Primary Care Provider] - Call for Appointment Baltazar Samuel MD [Physician] - Call for Appointment Discharge Medications: New hydrocodone-acetaminophen 5-325 mg Tablet 1 tablet PO Q6H PRN (Reason: Pain Rated 6 Or Greater) Qty: 10 0RF Xifaxan 550 mg Tablet 550 mg PO Q12HR Qty: 60 1RF ceftriaxone 2 gram Recon Soln 2 g IV Q24H Qty: 36 0RF Rx Instructions: Treat through 07/16/23. spironolactone [Aldactone] 50 mg Tablet 100 mg PO QAM Qty: 60 1RF furosemide 20 mg Tablet 20 mg PO BID Qty: 60 0RF acetaminophen 325 mg Tablet 650 mg PO Q6H PRN (Reason: Mild Pain (1-5) Or Fever) Qty: 10 0RF Continued allopurinol 100 mg tablet 100 mg PO .COMPLEX Rx Instructions: 100 mg PO Monday propranolol 20 mg tablet 20 mg PO Q12H Oyster Shell Calcium-Vit D2 250 (625)-125 mg-unit Tablet 1 tablet PO BID ropinirole 0.25 mg Tablet 0.25 mg PO HS lidocaine 5 % Adhesive Patch,Medicated 2 patch TOPICAL DAILY Rx Instructions: leave on most painful area for up to 12 hrs gabapentin 100 mg Capsule 100 mg PO BID insulin lispro 100 unit/mL Insulin Pen 1 sliding scale dose SUBCUT USEASDIRECTD Patient Comments: 2-5 units SSI with meals ketorolac 0.5 % drops 1 drp LEFT EYE TID pantoprazole 40 mg tablet,delayed release (DR/EC) 40 mg PO Q12H moxifloxacin 0.5 % drops 1 drp LEFT EYE Q12H ferrous sulfate 325 mg (65 mg iron) Tablet,Delayed Release (Dr/Ec) 325 mg PO BID Qty: 60 0RF Discontinued polyethylene glycol 3350 [Miralax] 17 gram Powder In Packet 17 g PO DAILY PRN (Reason: Constipation) hydrocodone-acetaminophen [Nikolai] 7.5-325 mg Tablet 1 tablet PO Q4H PRN (Reason: Pain, Severe) acetaminophen [Tylenol Extra Strength] 500 mg Capsule 1,000 mg PO BID tramadol 25 mg Tablet 25 mg PO Q4H PRN (Reason: Pain, Moderate) aspirin 81 mg Tablet 81 mg PO DAILY Xarelto 10 mg tablet 10 mg PO DAILY Qty: 14 0RF Rx Instructions: for 35 days celecoxib [Celebrex] 200 mg Capsule 200 mg PO DAILY Qty: 30 0RF cyclobenzaprine 10 mg Tablet 10 mg PO Q8H PRN (Reason: Muscle Spasm) Qty: 180 0RF sennosides-docusate sodium [Senokot-S] 8.6-50 mg Tablet 2 tab PO BID Qty: 60 0RF Date of admission: 06/01/24 16:38 Primary Care Provider: Rena Asher Admitting Provider: Hellen Lou Attending physician on admission: Tila Major Condition: Stable Hospitalist MIPS Heart Failure (Exclusion) Patient has history of Heart Transplant or Left Ventricular Assistive Device?: No IF YES, STOP HERE Heart Failure (Qualifier) Patient has current or prior documentation of LVEF less than or equal to 40%, or mod/servere depressed LVSF?: No IF NO, STOP HERE
== END 2024-06-10 17:40 | disposition swing bed (61) | DRG 560 ==
PROVIDERS: Internal Medicine Gastroenterology; Nurse Practitioner Acute Care; Nurse Practitioner Family; Orthopaedic Surgery; Physician Assistant; Surgery; Admitting Provider Internal Medicine; PCP Internal Medicine; Visit Provider Internal Medicine
PROC: 06H03DZ Insertion of Intraluminal Device into Inferior Vena Cava, Percutaneous Approach (ICD-10-PCS; principal; 2024-06-06 08:00)
DX: T84.51XA Infection and inflammatory reaction due to internal right hip prosthesis, initial encounter (principal); D61.818 Other pancytopenia; K92.1 Melena; I82.451 Acute embolism and thrombosis of right peroneal vein; R18.8 Other ascites; R78.81 Bacteremia; M00.851 Arthritis due to other bacteria, right hip; L76.32 Postprocedural hematoma of skin and subcutaneous tissue following other procedure; D62 Acute posthemorrhagic anemia; B95.61 Methicillin susceptible Staphylococcus aureus infection as the cause of diseases classified elsewhere; B96.1 Klebsiella pneumoniae [K. pneumoniae] as the cause of diseases classified elsewhere; B95.2 Enterococcus as the cause of diseases classified elsewhere; S72.001D Fracture of unspecified part of neck of right femur, subsequent encounter for closed fracture with routine healing; E78.5 Hyperlipidemia, unspecified; E11.9 Type 2 diabetes mellitus without complications; G89.29 Other chronic pain; I11.9 Hypertensive heart disease without heart failure; J02.9 Acute pharyngitis, unspecified; K74.60 Unspecified cirrhosis of liver; K64.8 Other hemorrhoids; M54.9 Dorsalgia, unspecified; R19.7 Diarrhea, unspecified; R41.82 Altered mental status, unspecified; Z85.05 Personal history of malignant neoplasm of liver; Z90.49 Acquired absence of other specified parts of digestive tract; Z98.84 Bariatric surgery status; Z96.641 Presence of right artificial hip joint; Z87.891 Personal history of nicotine dependence; Z79.82 Long term (current) use of aspirin; Z20.822 Contact with and (suspected) exposure to COVID-19; Z79.01 Long term (current) use of anticoagulants
CPT/HCPCS: 10160; 20611; 36415; 36569; 37191; 49083; 71045; 73700; 80053; 80074; 80202; 82140; 82948; 83605; 83735; 84100; 84134; 84145; 84439; 84443; 84480; 85014; 85018; 85025; 85027; 85055; 85384; 85610; 85652; 85730; 86140; 87040; 87070; 87075; 87077; 87181; 87186; 87205; 87637; 87651; 89051; 93970; 97110; 97116; 97161; 97166; 97530; 97535; A9270; C1880; C1894; J0696; J1644; J1815; J1956; J2003; J2270; J2470; J3370; J7042

== ENCOUNTER 2024-08-02 14:42 | Outpatient (CLI) | payer MEDICARE, SELFPAY ==
--- OUTSIDE RECORDS SUMMARY | 2024-08-02 14:48 | XMS_ITS | Clinical Summary ---
Author Organization [facility] Address [address] [place] [address]. [place], [place] [id number] [place] [id number] Care Team Providers Care Aba Tutor Name Role Phone Rena Asher MD Primary Care Provider [phone] Bharath Alexander MD Unavailable Unavailab le Allergies No known active allergies Family History Medical History Relation Comments Heart Attack Father Stroke Mother Relation Status Comments Father Mother Social History Tobacco Use Types Packs/Day Years Used Date Smoking Tobacco: Former Comments Unknown Sex and Gender Information Value Date Recorded Sex Assigned at Not on file Legal Sex Female 10:01 PM CDT Gender Identity Not on file Sexual Orientation Not on file Plan of Treatment Health Maintenance Due Date Last Done Comments DTaP, Tdap and Td Vaccines ( 1 - Tdap) 01/07/1959 Zoster Vaccines (1 of 2) 01/07/1990 Annual Medicare Wellness Visit 01/07/2005 Dexa Scan (General) 01/07/2005 Pneumococcal Vaccine: 65+ Ye ars (1 of 1 - PCV) 01/07/2005 RSV Immunization or 60+ Years (1 - 1-dose 75+ series) 01/07/2015 COVID-19 Vaccine ( - 2023-2 5 season) 2024 Influenza Adult (#1) 2024 Meningococcal B Vaccine Aged Out No l onger eligible based on patient's age to complete this topic Meningococcal Vaccine Aged Out No mae puma eligible based on patient's age to complete this topic RSV Immunizations Under 20 Months Aged Out No longer eligible based on patient's age to complete this topic Insurance [employer] [facility] Care Teams Aba Tutor Relationship Specialty Start Date End Date Rena Asher MD [address] [place] [id number] PCP - General INTERNAL MEDICINE 06/22/17 Bharath Alexander MD [address] [place] [address] CARDIOVASCULAR DISEASE 06/22/17
--- OUTSIDE RECORDS SUMMARY | 2024-08-02 14:48 | XMS_ITS | Encounter Summary ---
Author Organization [facility] Address [address] [place] [address]. [place] [address] [place] [address] Care Team Providers Care Sign Language Translator Name Role Phone Rena Asher MD Primary Care Provider [phone] Bharath Alexander MD Unavailable Unavailab le Encounter Details Date Type Department Care Team (Late st Contact Info) Description 06/29/2017 Abstract [facility] [address] [place] [address] Bharath Alexander MD Social History Tobacco Use Types Packs/Day Years Used Date Smoking Tobacco: Former Comments Unknown Sex and Gender Information Value Date Recorded Sex Assigned at Not on file Legal Sex Female 10:01 PM CDT Gender Identity Not on file Sexual Orientation Not on file documented as of this encounter Plan of Treatment Not on file documented as of this encounter Visit Diagnoses Not on filedocumented in this encounter Care Teams Sign Language Translator Relationship Specialty Start Date End Date Rena Asher MD [address] [place] [phone] PCP - General INTERNAL MEDICINE 06/22/17 Bharath Alexander MD [address] [place] [address] CARDIOVASCULAR DISEASE 06/22/17 documented as of this encounter
--- OUTSIDE RECORDS SUMMARY | 2024-08-02 14:49 | XMS_ITS | Continuity of Care Document ---
Author Organization [facility] Address [address] [place] [address] Phone Care Team Providers Care Truss Maker Name Role Phone Ze Renteria MD, FACS Unavailable Unavailab le Allergies, Adverse Reactions, Alerts Substance Reaction Status Criticality No Known Allergies Active No Inform ation Medications Medication Instructions Dosage Effective Dates (start - stop) Status Comments ketorolac 0.5 % eye drops instill 1 drop in the operated eye 3 times a day as directed - Active Florastor 250 mg capsule take 2 by oral route every day 2 - Active cephalexin 500 mg capsule take 1 capsule by oral route every 12 hours 500 MG - Active aspirin 81 mg tablet,delayed release take 1 tablet by oral route every day 81 MG - Active hydrocodone 10 mg-acetaminophen 325 mg tablet take 1 tablet by oral route every 4 - 6 hours as needed for pain 1.00 tablet - Active glimepiride 4 mg tablet take 1 tablet by oral route every day 4 MG - Active propranolol 20 mg tablet take 1 tablet by oral route 2 times every day 20 MG - Active pantoprazole 40 mg tablet,delayed release take 1 tablet by oral route 2 times every day 40 MG - Active allopurinol 100 mg tablet take 1 tablet by oral route every other day - Active ketorolac 0.5 % eye drops instill 1 drop in the operated eye 3 times a day as directed - No Longer Active Procedures Procedure Date No Charge Refraction Office/outpatient Visit, Est Office/outpatient Visit, Est Office/outpatient Visit, Est Office/outpatient Visit, Est Office/outpatient Visit, Est Office/outpatient Visit, Est Office/outpatient Visit, New Advance Directives Directive Yes / No Effective Date File Name No Information Encounters Encounter Description Practice Location Reason(s) For Visit Diagnoses Date Provider Providers Copied on Encounter [place] [facility] [place] [address] [place] [address] [facility] [address], [place], [place], [address], tel:[phone] SEC [place] Cornea check (chief complaint) Anterior basement membrane dystrophy of both eyesDry eye syndrome of bilateral lacrimal glands 5 Myra Ze. [facility] [employer], [address], [place], [place], [address], . tel:[phone] Referring Provider: Ayan Richey OD, [address] [place] [address], [address]. tel:[phone] [place]pa [place] [facility] [place] [facility] [address], [place], [place], [address], tel:[phone] SEC [place] cornea eval (chief complaint) Recurrent erosion of cornea, bilateralSeco ndary corneal edema, left eyeInj conjunctiva and corneal abrasion w/o fb, left eye, initAnterior basement membrane dystrophy of both eyes 4 Myra Ze. [facility] [employer], [address], [place], [place], [address], . tel:[phone] Referring Provider: Ayan Richey OD, [address] [place] [address], [address]. tel:[phone] [place]pa [place] [facility] [place] [address] [place], [place] [address], [place], [place], [address], tel:[phone] SEC [place] Professional Follow up visit (chief complaint) Corneal ulcer of left eye Oct-0 3 Renee OD Miri. [address] [address] [employer] [address], [address], [place], [place], [address], . tel:[phone] Referring Provider: Ayan Richey OD, [address] [place] [address], [place], [address]. tel:[phone] [place]pa [place], [facility] [place] [address] [place] [address] [address], [place], [place], [address], tel:[phone] SEC [place] Professional Cornea (chief complaint) Corneal ulcer of left eye 3 Myra Ze[address] [place] [address] [facility], [address], [place], [place], [address], [place]. tel:[phone] Referring Provider: Ayan Richey OD, [address] [place] [address], [place], [address]. tel:[phone] [place]pa [place]ient [place], [facility] [place] [address] [place] [address] [address], [place], [place], [address], tel:[phone] SEC [place] Professional Corneal Ulcer (chief complaint) Corneal ulcer of left eye 3 My[address] Ze[address] [place] [address], [address], [place], [place], [address], [place]. tel:[phone] Referring Provider: Ayan Richey OD, [address] [place] [address], [place], [address]. tel:[phone] Office/outpa [place]ient [place], [facility] [place] [address] [place] [address] [address], [place], [place], [address], [place] tel:[phone] SEC [place] Corneal Ulcer (chief complaint) Corneal ulcer of left eye 3 Myra Ze[address] [place] [address] [facility], [address], [place], [place], [address], [place]. tel:[phone] Referring Provider: Ayan Richey OD, [address] [place], [place] [address], [address]. tel:[phone] Office/outpa tient Visit, [facility], [address], [place], [place], [address], [place] tel:[phone] SEC [place] Cornea evaluation (chief complaint) Corneal ulcer of left eye 3 Myra Kunz. [address], [address], [place], [place], [address], [place]. tel:[phone] Referring Provider: Ayan Richey OD, [address] [facility], [place], [address]. tel:[phone] Family History Family Member Type Diagnosis Age At Onset Problem Family history of Diabetes m henry Payers Payer name Insurance type Covered constitution party ID Authorsneha tidwell(s) [place] [id number] [place] [id number] Social History Type Description Quantity Date Captured Comments Alcohol Use Details No Caffeine Use Details Tobacco Use Status Ex-cigarette smoker 025 Smoking Status Former smoker Smoking Tobacco Use Details Cigarette: Age Started: 18, Age Stopped: 25, Years Used 7 Cigarette: No Details Available Sex Female Chief Complaint And Reason For Visit From encounter dated '07/24/2024 11:15'. Cornea check (chief complaint). Description: The 84 year old patient presents for evaluation of Cornea check in both eyes. Pt has h/o Inj. conjunctival/cornea abrasion w/o FB OS, ABMD ou, and recurrent Erosion. Pt just got out of hospital 1 week ago. . Pt states when in hospital they also put the drops in her eye. Pt. states when they put in her eyes felt like there was grit in her eye. Pt stopped the eye drops 9 days ago. Grit feeling gone but vision still blurred in OS. Reason For Referral Reason For Referral No Information Plan Of Treatment Date Type Action Status Goal Tobacco cessation counseling completed Goal Tobacco cessation counseling completed Goal Tobacco cessation counseling completed Goal Tobacco cessation counseling completed Goal Tobacco cessation counseling completed Goal Tobacco cessation counseling completed Appointment Khadra Crook BOOKED Patient Education Corneal Ulcer: Care Ins tructions completed History Of Present Illness Encounter Date Complaint History Of Prese nt Illness Cornea check The 84 year old patient presents for evaluation of Cornea check in both eyes. Pt has h/o Inj. conjunctival/cornea abrasion w/o FB OS, ABMD ou, and recurrent Erosion. Pt just got out of hospital 1 week ago. . Pt states when in hospital they also put the drops in her eye. Pt. states when they put in her eyes felt like there was grit in her eye. Pt stopped the eye drops 9 days ago. Grit feeling gone but vision still blurred in OS. cornea eval The 84 year old patient presents for a corneal ulcer evaluation OS per Dr. Richey. Patient is using Moxifloxacin qhr OS. Patient states OS vision is blurry. Patient c/o OS hammond, mcallister and is really sore x 1 week. Follow up visit The 83 year old patient presents for a 1 month corneal ulcer OS follow up. Patient denies any pain. Patient states OS vision is blurry. Patient is using Moxifloxacin BID os. Cornea The 83 year old patient presents for evaluation of Cornea in the left eye. Pt using Natacyn to QID, Moxifloxacin QID, Ketorolac 3-4 times per day and Itraconazole po BID. Pt states OS feels fine until she puts in the drops, then they feel gritty. Corneal Ulcer The 83 year old patient presents for evaluation of Corneal Ulcer in the left eye. Pt using Natacyn 6 times per day OS, Moxifloxacin 3 gtts Q 1 minute apart every 2 hours while awake, Ketorolac 3-4 times per day and Itraconazole po BID. Pt states there is very little if any improvement. Corneal Ulcer The 83 year old patient presents for evaluation of Corneal Ulcer in the left eye. Pt was able to get her drop from [facility] just before they closed on Monday. Pt states OS is a little better, but she is still photophobic and the drop feels like sand in here eye when it is put in. Her vision also very blurry for about 10 mins after. Cornea evaluation The 83 year ol d patient presents for evaluation of Cornea evaluation in the left eye. Pt reports she woke up Monday or Monday OS was hurting and felt like something in it. Pt went to ER was told she had a scratch on her cornea and was given drops with no improvement. Pt then went to Dr. Richey and was told it was an ulcer, not sure if fungal or bacterial. Pt states OS vision is very blurry, watering, sensitive to light, red and painful. Pt has been using Cyclo TID OS (2am) and Moxi qhr OS (11am). Functional Status Date Functional Assessmen t No Information Medications Administered Medication Instructions Dosage Effective Dates (start - stop) Status Comments ketorolac 0.5 % eye drops instill 1 drop in the operated eye 3 times a day as directed - No Longer Active Instructions Date Instruction Additional Infor elroy Impression/Plan Impression/Plan Impression/Plan Impression/Plan Impression/Plan Impression/Plan Assessments Type Assessment Date assessment Anterior basement membrane dystr ophy of both eyes assessment Dry eye syndrome of bilateral la crimal glands Patient Care Teams Name Effective Dates (start - stop) Status Members No Information
[2024-08-02 15:28] LABS: Ammonia 11 umol/L (11-32)
[2024-08-02 15:33] LABS: Hematocrit 35.7 % (35.0-42.0); Hemoglobin 11.6 g/dL (11.7-13.8); Immature Platelet Fraction Pct 1.8 % (1.0-7.0); Mean Corpuscular HGB Conc 32.5 g/dL (32-36); Mean Corpuscular Hemoglobin 32.9 pg (27.0-31.0); Mean Corpuscular Volume 101.1 fL (78.0-102.0); Mean Platelet Volume 10.6 fl (9.2-11.8); Platelet Count Result 97 K/mm3 (150-420); Red Blood Count 3.53 M/mm3 (4.20-5.40); Red Cell Distribution Width 14.1 % (11.6-14.4); White Blood Count 3.7 K/mm3 (4.8-10.8)
[2024-08-02 15:43] LABS: INR 1.1; Prothrombin Time 12.4 Seconds (9.50-12.1)
[2024-08-02 16:00] LABS: Alanine Aminotransferase 24 U/L (14-59); Albumin Level 2.9 g/dL (3.4-5.0); Alkaline Phosphatase 115 U/L (46-116); Anion Gap 6 mmol/L (4-12); Aspartate Amino Transferase 40 U/L (15-37); Bilirubin,Total 0.8 mg/dL (0.00-1.00); Blood Urea Nitrogen 15 mg/dL (7-18); Calcium 8.4 mg/dL (8.5-10.1); Carbon Dioxide 29 mmol/L (21-32); Chloride 100 mmol/L (98-108); Estimated Glomerular Filt Rate > 60; Ferritin 73 ng/mL (8-252); Free T3 2.63 pg/mL (2.18-3.98); Free T4 Free Thyroxine 1.33 ng/dL (0.76-1.46); Glucose 105 mg/dL (70-99); Iron 60 ug/dL (50-170); NT Pro B Type Natriuretic Pept 700 pg/mL (0-450); Osmolality Calculated 280 mOsm/kg (285-295); Potassium 4.1 mmol/L (3.5-5.1); Sodium 135 mmol/L (136-145); Thyroid Stimulating Hormone 1.81 uIU/mL (0.36-3.74); Total Protein 6.7 g/dL (6.4-8.2)
[2024-08-04 01:58] LABS: Prealbumin 11 mg/dL (17-34)
[2024-08-06 10:58] LABS: Alpha Fetoprotein Tumor Marker 2.6 ng/mL
== END 2024-08-02 14:43 | disposition home or self-care (01) ==
PROVIDERS: PCP Internal Medicine; Visit Provider Internal Medicine
DX: R19.7 Diarrhea, unspecified (principal); M79.89 Other specified soft tissue disorders; K74.60 Unspecified cirrhosis of liver; R18.8 Other ascites; R06.00 Dyspnea, unspecified
CPT/HCPCS: 36415; 80053; 82105; 82140; 82728; 83540; 83880; 84134; 84439; 84443; 84481; 85027; 85055; 85610

== ENCOUNTER 2024-08-07 09:48 | Outpatient (CLI) | payer MEDICARE, SELFPAY ==
--- NOTE | ~2024-08-07 | US_ITS ---
EXAMINATION: US abdomen limited DATE: 08/07/2024 10:14 INDICATION: Cirrhosis of the liver. Ascites. TECHNIQUE: Multiple grayscale ultrasound images of the abdomen were obtained. COMPARISON: CT abdomen and pelvis 05/31/2024 FINDINGS: A survey of the 4 quadrants of the abdomen demonstrates a small volume of ascites. IMPRESSION: 1. Small volume of ascites. Reviewed, dictated and finalized at location A. CTOR OF PRIMARY IMPRESSION: 1. Small volume of ascites.
[2024-08-07 10:33] LABS: Add Urine Microscopic? NO; Appearance Urine Clear (Clear); Bilirubin Urine Negative (Negative); Blood Urine Negative (Negative); Color Urine Yellow (Yellow); Glucose Urine UA Negative (Negative); Ketones Urine Negative (Negative); Leukocyte Esterase Ur Negative (Negative); Nitrate Urine Negative (Negative); Protein Urine Negative (Negative); Specific Grav Ur 1.015 (1.010-1.020); Urobilinogen Urine 0.2 mg/dL (0.2-1.0); pH Urine 7.5 (5.0-8.0)
--- OUTSIDE RECORDS SUMMARY | 2024-08-07 10:41 | XMS_ITS | Encounter Summary ---
Author Organization [facility] Address Formerly [facility], [facility] [place] [address] Care Team Providers Care Implementation Lead Name Role Phone Rena Asher MD Primary Care Provider [phone] Bharath Alexander MD Unavailable Unavailab le Encounter Details Date Type Department Care Team (Late st Contact Info) Description 06/29/2017 Abstract [facility] [address] [place] [id number] [phone] Bharath Alexander MD Social History Tobacco Use [...] on filedocumented in this encounter Care Teams Implementation Lead Relationship Specialty Start Date End Date Rena Asher MD [address] [place] [address] PCP - General INTERNAL MEDICINE 06/22/17 Bharath Alexander MD [address] [place] [address] CARDIOVASCULAR DISEASE 06/22/17 documented as of this encounter
--- OUTSIDE RECORDS SUMMARY | 2024-08-07 10:41 | XMS_ITS | Continuity of Care Document ---
Author Organization [facility] Address [address] [place] [address] Phone Care Team Providers Care Cnc Supervisor Name Role Phone Ze Renteria MD, FACS [...] Providers Copied on Encounter Office/outpa tient Visit, [facility] [place], [address] [place] [address] [email or web address] [address], [place], [place], [address], tel:[phone] SEC [place] Cornea check (chief complaint) Anterior basement membrane dystrophy of both eyesDry eye syndrome of bilateral lacrimal glands 5 Myra Ze. [facility] [address], [address], [place], [place], [address], . tel:[phone] Referring Provider: Ayan Richey OD, [address] [place] [address], [address]. tel:[phone] Office/outpa tient Visit, [facility] [place], [facility] [employer] [address], [place], [place], [address], tel:[phone] SEC [place] cornea eval (chief complaint) Recurrent erosion of cornea, bilateralSeco ndary corneal edema, left eyeInj conjunctiva and corneal abrasion w/o fb, left eye, initAnterior basement membrane dystrophy of both eyes 4 Myra Ze. [facility], [address], [place], [place], [address], . tel:[phone] Referring Provider: Ayan Richey OD, [address] [place] [address], [address]. tel:[phone] Office/outpa tient Visit, [facility] [place], [address] [place], [place] [address], [place], [place], [address], tel:[phone] SEC Quang CARRAS[place] Professional Follow up visit (chief complaint) Corneal ulcer of left eye Oct-0 3 Renee OD Miri. [address] [address], [address], [place], [place], [address], . tel:[phone] Referring Provider: Ayan Richey OD, [address] [place] [address], [place], [address]. tel:[phone] Office/outpa tient Visit, [facility] [place], [address] [place] [address] [address], [place], [place], [address], tel:[phone] SEC [place] Professional Cornea (chief complaint) Corneal ulcer of left eye 3 Myra Ze[address] [place] [address] [email or web address] [facility], [address], [place], [place], [address], [place]. tel:[phone] Referring Provider: Ayan Richey OD, [address] [place] [address], [place], [address]. tel:[phone] Office/outpa tient Visit, [facility] [place], [address] [place] [address] [address], [place], [place], [address], tel:[phone] SEC [place] Professional Corneal Ulcer (chief complaint) Corneal ulcer of left eye 3 Myra Ze[address] [place] [address], [address], [place], [place], [address], [place]. tel:[phone] Referring Provider: Ayan Richey OD, [address] [place] [address], [place], [address]. tel:[phone] Office/outpa tient Visit, [facility] [place], [address] [place] [address] [address], [place], [place], [address], [place] tel:[phone] SEC [place] Corneal Ulcer (chief complaint) Corneal ulcer of left eye 3 Myra Ze[address] [place] [address] [email or web address] [facility], [address], [place], [place], [address], [place]. tel:[phone] Referring Provider: Ayan Richey OD, [address] [place], [place] [address], [address]. tel:[phone] Office/outpa tient Visit, [facility], [address], [place], [place], [address], [place] tel:[phone] SEC [place] Cornea evaluation (chief complaint) Corneal ulcer of left eye 3 Myra Kunz. [address], [address], [place], [place], [address], [place]. tel:[phone] Referring Provider: Ayan Richey OD, [address] [facility], [place], [address]. tel:[phone] Family History Family Member Type Diagnosis Age At Onset Problem Family history of Diabetes m henry Payers Payer name Insurance type Covered republican ID Authorsneha tidwell(s) [place] [id number] [place] [id number] Social History Type Description Quantity Date Captured [...] was able to get her drop from [employer] just before they closed on Monday. Pt [...]
--- OUTSIDE RECORDS SUMMARY | 2024-08-07 10:41 | XMS_ITS | Clinical Summary ---
Author Organization [facility] Address [address] [place] [address] Care Team Providers Care Vessel Slag Worker Name Role Phone Rena Asher MD Primary Care Provider [phone] Bharath Alexander MD Unavailable Unavailab le Allergies [...] patient's age to complete this topic Insurance [facility] MEDICARE Care Teams Vessel Slag Worker Relationship Specialty Start Date End Date Rena Asher MD [address] [place] [address] PCP - General INTERNAL MEDICINE 06/22/17 Bharath Alexander MD [address] [place] [address] CARDIOVASCULAR DISEASE 06/22/17
[2024-08-07 11:21] LABS: Toxigenic C. Diff POSITIVE (NEGATIVE)
== END 2024-08-07 09:49 | disposition home or self-care (01) ==
LOC: CHSIMG 09:52
PROVIDERS: PCP Internal Medicine; Visit Provider Internal Medicine
DX: K74.60 Unspecified cirrhosis of liver (principal); R18.8 Other ascites
CPT/HCPCS: 76705; 81003; 87493

== ENCOUNTER 2024-08-23 12:36 | Outpatient (CLI) | payer MEDICARE, SELFPAY ==
--- OUTSIDE RECORDS SUMMARY | 2024-08-23 12:41 | XMS_ITS | Encounter Summary ---
Author Organization [facility] Address [facility] [place] [address] Care Team Providers Care Placement Coordinator Name Role Phone Rena Asher MD Primary Care Provider [phone] Bharath Alexander MD Unavailable Unavailab le Encounter Details Date Type Department Care Team (Late st Contact Info) Description 06/29/2017 Abstract [facility] [address] [place] [address] [phone] Bharath Alexander MD Social History Tobacco Use [...] on filedocumented in this encounter Care Teams Placement Coordinator Relationship Specialty Start Date End Date Rena Asher MD [address] [place] [address] PCP - General INTERNAL MEDICINE 06/22/17 Bharath Alexander MD [address] [place] [address] CARDIOVASCULAR DISEASE 06/22/17 documented as of this encounter
--- OUTSIDE RECORDS SUMMARY | 2024-08-23 12:41 | XMS_ITS | Continuity of Care Document ---
Author Organization [facility] Address [address] [place] [address] Phone Care Team Providers Care Call Center Rn Name Role Phone Ze Renteria MD, FACS Unavailable Unavailab le Allergies, Adverse Reactions, Alerts Substance Reaction Status Criticality No Known Allergies Active No Inform ation Medications Medication Instructions Dosage Effective Dates (start - stop) Status Comments ketorolac 0.5 % eye drops instill 1 drop in the operated eye 3 times a day as directed - Active cephalexin 500 mg capsule take 1 capsule by oral route every 12 hours 500 MG - Active Florastor 250 mg capsule take 2 by oral route every day 2 - Active allopurinol 100 mg tablet take 1 tablet by oral route every other day - Active pantoprazole 40 mg tablet,delayed release take 1 tablet by oral route 2 times every day 40 MG - Active propranolol 20 mg tablet take 1 tablet by oral route 2 times every day 20 MG - Active glimepiride 4 mg tablet take 1 tablet by oral route every day 4 MG - Active hydrocodone 10 mg-acetaminophen 325 mg tablet take 1 tablet by oral route every 4 - 6 hours as needed for pain 1.00 tablet - Active aspirin 81 mg tablet,delayed release take 1 tablet by oral route every day 81 MG - Active ketorolac 0.5 % eye drops [...] Copied on Encounter Office/[place]pa [place], [facility] [place], [address] [place] [address] [address], [place], [place], [address], tel:[phone] SEC [place] Cornea check (chief complaint) Anterior basement membrane dystrophy of both eyesDry eye syndrome of bilateral lacrimal glands 5 Shawmut Ze. [facility] [address], [address], [place], [place], [address], . tel:[phone] Referring Provider: Ayan Richey OD, [address] [place] [address], [address]. tel:[phone] Office/outpa [place]ient Visit, [facility] [place], [facility] [employer] [address], [place], [place], [address], tel:[phone] SEC [place] cornea eval (chief complaint) Recurrent erosion of cornea, bilateralSeco ndary corneal edema, left eyeInj conjunctiva and corneal abrasion w/o fb, left eye, initAnterior basement membrane dystrophy of both eyes 4 Myra Ze. [facility] [address], [address], [place], [place], [address], . tel:[phone] Referring Provider: Ayan Richey OD, [address] [place] [address], [address]. tel:[phone] Office/outpa [place]ient Visit, [facility] [place], [address] [place], [place] [address], [place], [place], [address], tel:[phone] SEC [place] C[place]AS[place] Professional Follow up visit (chief complaint) Corneal ulcer of left eye Oct-0 3 Renee OD Miri. [address] [address], [address], [place], [place], [address], . tel:[phone] Referring Provider: Ayan Richey OD, [address] [place] [address], [place], [address]. tel:[phone] Office/outpa [place]ient Visit, [facility] [place], [address] [place] [address] [address], [place], [place], [address], tel:[phone] SEC [place] Professional Cornea (chief complaint) Corneal ulcer of left eye 3 Myra Ze. [address] [place] [address] [employer] [facility], [address], [place], [place], [address], [place]. tel:[phone] Referring Provider: Ayan Richey OD, [address] [place] [address], [place], [address]. tel:[phone] Office/outpa [place]ient Visit, [facility] [place] [facility] [place], [address] [place] [address] [address], [place], [place], [address], tel:[phone] SEC [place] Professional Corneal Ulcer (chief complaint) Corneal ulcer of left eye 3 Shawmut Ze. [address] [place] [address], [address], [place], [place], [address], [place]. tel:[phone] Referring Provider: Ayan Richey OD, [address] [place] [address], [place], [address]. tel:[phone] Office/outpa [place]ient Visit, [facility] [place], [address] [place] [address] [address], [place], [place], [address], [place] tel:[phone] SEC [place] Corneal Ulcer (chief complaint) Corneal ulcer of left eye 3 Shawmut Ze. [address] [place] [address] [employer] [facility], [address], [place], [place], [address], [place]. tel:[phone] Referring Provider: Ayan Richey OD, [address] [place], [place] [address]mal[place], [address]. tel:[phone] Office/outpa tient Visit, [facility], [address], [place], [place], [address], [place] tel:[phone] SEC [place] Cornea evaluation (chief complaint) Corneal ulcer of left eye 3 Myra Kunz. [address], [address], [place], [place], [address], [place]. tel:[phone] Referring Provider: Ayan Richey OD, [address] [facility], [place], [address]. tel:[phone] Family History Family Member Type Diagnosis Age At Onset Problem Family history of Diabetes m henry Payers Payer name Insurance type Covered green party ID Authorsneha tidwell(s) [place] [id number] [place] [id number] Social History Type Description Quantity Date Captured [...] was able to get her drop from [facility] just before they closed on Monday. Pt [...]
--- OUTSIDE RECORDS SUMMARY | 2024-08-23 12:41 | XMS_ITS | Clinical Summary ---
Author Organization [facility] Address [address] [place] [address] Care Team Providers Care Data Recovery Planner Name Role Phone Rena Asher MD Primary Care Provider [phone] Bharath Alexander MD Unavailable Unavailab le Allergies [...] patient's age to complete this topic Insurance [facility] MEDICARE Care Teams Data Recovery Planner Relationship Specialty Start Date End Date Rena Asher MD [address] [place] [address] PCP - General INTERNAL MEDICINE 06/22/17 Bharath Alexander MD [address] [place] [address] CARDIOVASCULAR DISEASE 06/22/17
[2024-08-23 12:53] LABS: Basophils Absolute Auto 0.02 K/mm3 (0.00-0.10); Basophils Percent Auto 0.5 % (0.0-1.0); Eosinophils Absolute Auto 0.19 K/mm3 (0.02-0.50); Eosinophils Percent Auto 4.5 % (1.0-6.0); Hematocrit 39.3 % (35.0-42.0); Immature Granulocyte Absolute 0.01 K/mm3 (0.00-0.00); Immature Granulocyte Percent A 0.2 % (0.0-0.0); Immature Platelet Fraction Pct 2.7 % (1.0-7.0); Lymphocytes Absolute Auto 0.74 K/mm3 (1.10-4.50); Lymphocytes Percent Auto 17.4 % (18.0-42.0); Mean Corpuscular HGB Conc 33.1 g/dL (32-36); Mean Corpuscular Hemoglobin 32.3 pg (27.0-31.0); Mean Corpuscular Volume 97.5 fL (78.0-102.0); Mean Platelet Volume 10.1 fl (9.2-11.8); Monocytes Absolute Auto 0.38 K/mm3 (0.10-0.90); Monocytes Percent Auto 8.9 % (2.0-11.0); Neutrophils Absolute Auto 2.92 K/mm3 (1.70-7.20); Neutrophils Percent Auto 68.5 % (50.0-70.0); Platelet Count Result 107 K/mm3 (150-420); Red Blood Count 4.03 M/mm3 (4.20-5.40); Red Cell Distribution Width 13.8 % (11.6-14.4); White Blood Count 4.3 K/mm3 (4.8-10.8)
[2024-08-23 13:41] LABS: Alanine Aminotransferase 22 U/L (14-59); Albumin Level 3.4 g/dL (3.4-5.0); Alkaline Phosphatase 119 U/L (46-116); Anion Gap 9 mmol/L (4-12); Aspartate Amino Transferase 34 U/L (15-37); Bilirubin,Total 1.1 mg/dL (0.00-1.00); Blood Urea Nitrogen 18 mg/dL (7-18); Calcium 9.6 mg/dL (8.5-10.1); Carbon Dioxide 31 mmol/L (21-32); Chloride 96 mmol/L (98-108); Estimated Glomerular Filt Rate 55; Glucose 123 mg/dL (70-99); NT Pro B Type Natriuretic Pept 422 pg/mL (0-450); Osmolality Calculated 284 mOsm/kg (285-295); Potassium 4.9 mmol/L (3.5-5.1); Sodium 136 mmol/L (136-145); Total Protein 8.1 g/dL (6.4-8.2)
[2024-08-23 13:53] LABS: Toxigenic C. Diff NEGATIVE (NEGATIVE)
== END 2024-08-23 12:37 | disposition home or self-care (01) ==
LOC: CHSLAB 12:38
PROVIDERS: PCP Internal Medicine; Visit Provider Internal Medicine
DX: I50.9 Heart failure, unspecified (principal); A04.72 Enterocolitis due to Clostridium difficile, not specified as recurrent
CPT/HCPCS: 36415; 80053; 83880; 85025; 85055; 87493

== ENCOUNTER 2024-08-27 11:45 | Outpatient (CLI) | payer MEDICARE, SELFPAY ==
--- OUTSIDE RECORDS SUMMARY | 2024-08-27 13:50 | XMS_ITS | Clinical Summary ---
Author Organization [facility] Address [address] [place] [address] Care Team Providers Care Stock Worker And Deliverer Name Role Phone Rena Asher MD Primary Care Provider [phone] Bharath Alexander MD Unavailable Unavailab le Allergies [...] patient's age to complete this topic Insurance [facility] MEDICARE Care Teams Stock Worker And Deliverer Relationship Specialty Start Date End Date Rena Asher MD [address] [place] [address] PCP - General INTERNAL MEDICINE 06/22/17 Bharath Alexander MD [address] [place] [address] CARDIOVASCULAR DISEASE 06/22/17
--- OUTSIDE RECORDS SUMMARY | 2024-08-27 13:50 | XMS_ITS | Encounter Summary ---
Author Organization [facility] Address [facility] [place] [address] Care Team Providers Care It Audit Manager Name Role Phone Rena Asher MD Primary Care Provider [phone] Bharath Alexander MD Unavailable Unavailab le Encounter Details Date Type Department Care Team (Late st Contact Info) Description 06/29/2017 Abstract [facility] [address] [place] [id number] [phone] Bharath Alexander MD Social History Tobacco Use [...] on filedocumented in this encounter Care Teams It Audit Manager Relationship Specialty Start Date End Date Rena Asher MD [address] [place] [address] PCP - General INTERNAL MEDICINE 06/22/17 Bharath Alexander MD [address] [place] [address] CARDIOVASCULAR DISEASE 06/22/17 documented as of this encounter
[2024-08-27 15:13] LABS: Toxigenic C. Diff POSITIVE (NEGATIVE)
== END 2024-08-27 11:46 | disposition home or self-care (01) ==
PROVIDERS: PCP Internal Medicine; Visit Provider Internal Medicine
DX: R19.7 Diarrhea, unspecified (principal)
CPT/HCPCS: 87493

== ENCOUNTER 2024-08-28 12:10 | Outpatient (CLI) | payer MEDICARE, SELFPAY ==
[2024-08-28 12:26] LABS: Hematocrit 37.7 % (35.0-42.0); Hemoglobin 12.3 g/dL (11.7-13.8); Immature Platelet Fraction Pct 3.1 % (1.0-7.0); Mean Corpuscular HGB Conc 32.6 g/dL (32-36); Mean Corpuscular Hemoglobin 31.8 pg (27.0-31.0); Mean Corpuscular Volume 97.4 fL (78.0-102.0); Mean Platelet Volume 10.5 fl (9.2-11.8); Platelet Count Result 86 K/mm3 (150-420); Red Blood Count 3.87 M/mm3 (4.20-5.40); Red Cell Distribution Width 13.9 % (11.6-14.4)
[2024-08-28 12:50] LABS: Alanine Aminotransferase 15 U/L (14-59); Albumin Level 3.3 g/dL (3.4-5.0); Alkaline Phosphatase 107 U/L (46-116); Anion Gap 6 mmol/L (4-12); Aspartate Amino Transferase 29 U/L (15-37); Blood Urea Nitrogen 20 mg/dL (7-18); Calcium 9.8 mg/dL (8.5-10.1); Carbon Dioxide 32 mmol/L (21-32); Chloride 98 mmol/L (98-108); Estimated Glomerular Filt Rate 52; Glucose 98 mg/dL (70-99); Osmolality Calculated 284 mOsm/kg (285-295); Potassium 5.2 mmol/L (3.5-5.1); Sodium 136 mmol/L (136-145); Total Protein 8.1 g/dL (6.4-8.2)
--- OUTSIDE RECORDS SUMMARY | 2024-08-28 13:48 | XMS_ITS | Continuity of Care Document ---
Author Organization [facility] Address [address] [place] [address] Phone Care Team Providers Care Bisque Cleaner Name Role Phone Ze Renteria MD, FACS [...] Providers Copied on Encounter Office/outpa tient Visit, [facility], [address] [place] [address] [address], [place], [place], [address], tel:[phone] SEC [place] Cornea check (chief complaint) Anterior basement membrane dystrophy of both eyesDry eye syndrome of bilateral lacrimal glands 5 [place] Ze. [facility] [employer], [address], [place], [place], [address], . tel:[phone] Referring Provider: Ayan Richey OD, [address] [place] [address], [address]. tel:[phone] Office/outpa tient Visit, [facility], [facility] [employer] [address], [place], [place], [address], tel:[phone] SEC [place] cornea eval (chief complaint) Recurrent erosion of cornea, bilateralSeco ndary corneal edema, left eyeInj conjunctiva and corneal abrasion w/o fb, left eye, initAnterior basement membrane dystrophy of both eyes 4 Myra Ze. [facility] [employer], [address], [place], [place], [address], . tel:[phone] Referring Provider: Ayan Richey OD, [address] [place] [address], [address]. tel:[phone] Office/outpa tient Visit, [facility], [address] [place], [place] [address]st [address], [place], [place], [address], tel:[phone] SEC Quang C[place]AS[place] Professional Follow up visit (chief complaint) Corneal ulcer of left eye Oct-0 3 Renee OD Miri. [address] [address], [address], [place], [place], [address], . tel:[phone] Referring Provider: Ayan Richey OD, [address] [place] [address], [place], [address]. tel:[phone] Office/outpa tient Visit, [facility], [address] [place] [address] [address], [place], [place], [address], tel:[phone] SEC [place] Professional Cornea (chief complaint) Corneal ulcer of left eye 3 Myra Ze. [address] [place] [address] [employer] [facility], [address], [place], [place], [address], [place]. tel:[phone] Referring Provider: Ayan Richey OD, [address] [place] [address], [place], [address]. tel:[phone] Office/outpa tient Visit, [facility], [address] [place] [address] [address], [place], [place], [address], tel:[phone] SEC [place] Professional Corneal Ulcer (chief complaint) Corneal ulcer of left eye 3 [place] Ze. [address] [place] [address], [address], [place], [place], [address], [place]. tel:[phone] Referring Provider: Ayan Richey OD, [address] [place] [address], [place], [address]. tel:[phone] Office/outpa tient Visit, [facility], [address] [place] [address] [address], [place], [place], [address], [place] tel:[phone] SEC [place] Corneal Ulcer (chief complaint) Corneal ulcer of left eye 3 [place] Ze. [address] [place] [address] [employer] [facility], [address], [place], [place], [address], [place]. tel:[phone] Referring Provider: Ayan Richey OD, [address] [place], [place] [address]mal[place], [address]. tel:[phone] Office/outpa tient Visit, [facility], [address], [place], [place], [address], [place] tel:[phone] SEC [place] Cornea evaluation (chief complaint) Corneal ulcer of left eye 3 Myra Kunz. [address], [address], [place], [place], [address], [place]. tel:[phone] Referring Provider: Ayan Richey OD, [address] [facility], [place], [address]. tel:[phone] Family History Family Member Type Diagnosis Age At Onset Problem Family history of Diabetes m henry Payers Payer name Insurance type Covered democrat ID Authorsneha tidwell(s) [place] [id number] [place] [id number] Social History Type Description Quantity Date Captured [...] was able to get her drop from [employer] just before they closed on Monday. Pt [...]
--- OUTSIDE RECORDS SUMMARY | 2024-08-28 13:48 | XMS_ITS | Encounter Summary ---
Author Organization [facility] Address [facility] [place] [address] Care Team Providers Care Associate Software Application Engineer Name Role Phone Rena Asher MD Primary Care Provider [phone] Bharath Alexander MD Unavailable Unavailab le Encounter Details Date Type Department Care Team (Late st Contact Info) Description 06/29/2017 Abstract [facility] [address] [place] [address] [phone] Bharath Alexander MD Social History Tobacco Use [...] on filedocumented in this encounter Care Teams Associate Software Application Engineer Relationship Specialty Start Date End Date Rena Asher MD [address] [place] [address] PCP - General INTERNAL MEDICINE 06/22/17 Bharath Alexander MD [address] [place] [address] CARDIOVASCULAR DISEASE 06/22/17 documented as of this encounter
--- OUTSIDE RECORDS SUMMARY | 2024-08-28 13:48 | XMS_ITS | Clinical Summary ---
Author Organization [facility] Address [address] [place] [address] Care Team Providers Care Child Adolescent Psychiatrist Name Role Phone Rena Asher MD Primary Care Provider [phone] Bharath Alexander MD Unavailable Unavailab le Allergies [...] patient's age to complete this topic Insurance [facility] MEDICARE Care Teams Child Adolescent Psychiatrist Relationship Specialty Start Date End Date Rena Asher MD [address] [place] [address] PCP - General INTERNAL MEDICINE 06/22/17 Bharath Alexander MD [address] [place] [address] CARDIOVASCULAR DISEASE 06/22/17
== END 2024-08-28 12:11 | disposition home or self-care (01) ==
LOC: CHSLAB 12:12
PROVIDERS: PCP Internal Medicine; Visit Provider Internal Medicine
DX: R19.7 Diarrhea, unspecified (principal)
CPT/HCPCS: 36415; 80053; 85027; 85055

== ENCOUNTER 2024-09-10 15:51 | Outpatient (CLI) | payer MEDICARE, SELFPAY ==
[2024-09-10 16:19] LABS: Hematocrit 37.7 % (35.0-42.0); Hemoglobin 12.2 g/dL (11.7-13.8); Mean Corpuscular HGB Conc 32.4 g/dL (32-36); Mean Corpuscular Hemoglobin 32.1 pg (27.0-31.0); Mean Corpuscular Volume 99.2 fL (78.0-102.0); Mean Platelet Volume 10.8 fl (9.2-11.8); Platelet Count Result 79 K/mm3 (150-420); Red Cell Distribution Width 14.4 % (11.6-14.4); White Blood Count 3.2 K/mm3 (4.8-10.8)
[2024-09-10 16:42] LABS: Band Neutrophils Percent 0 % (0-6); Lymphocytes Absolute Manual 0.89 K/mm3 (1.1-4.5); Lymphocytes Percent Manual 28 % (18-44); Neutrophils Absolute Manual 1.85 K/mm3 (1.7-7.2); Neutrophils Percent Manual 58 % (46-73); Total Cells Counted 100
[2024-09-10 16:43] LABS: Basophils Percent Manual 0 % (0-1); Eosinophils Absolute Manual 0.03 K/mm3 (0.02-0.50); Eosinophils Percent Manual 1 % (1-6); Monocytes Absolute Manual 0.41 K/mm3 (0.1-0.90); Monocytes Percent Manual 13 % (3-9); Platelet Estimate Decreased (Adequate)
[2024-09-10 17:03] LABS: Toxigenic C. Diff POSITIVE (NEGATIVE)
[2024-09-10 17:11] LABS: Alanine Aminotransferase 27 U/L (14-59); Albumin Level 3.4 g/dL (3.4-5.0); Alkaline Phosphatase 94 U/L (46-116); Anion Gap 4 mmol/L (4-12); Aspartate Amino Transferase 39 U/L (15-37); Blood Urea Nitrogen 19 mg/dL (7-18); Calcium 9.6 mg/dL (8.5-10.1); Carbon Dioxide 32 mmol/L (21-32); Chloride 102 mmol/L (98-108); Estimated Glomerular Filt Rate 54; Glucose 84 mg/dL (70-99); NT Pro B Type Natriuretic Pept 572 pg/mL (0-450); Osmolality Calculated 287 mOsm/kg (285-295); Potassium 5.2 mmol/L (3.5-5.1); Sodium 138 mmol/L (136-145); Total Protein 7.4 g/dL (6.4-8.2)
--- OUTSIDE RECORDS SUMMARY | 2024-09-10 17:47 | XMS_ITS | Clinical Summary ---
Author Organization [facility] Address [address] [place] [address] Care Team Providers Care Turnaround Engineer Name Role Phone Rena Asher MD Primary Care Provider [phone] Bharath Alexander MD Unavailable Unavailab le Allergies [...] patient's age to complete this topic Insurance [facility] MEDICARE Care Teams Turnaround Engineer Relationship Specialty Start Date End Date Rena Asher MD [address] [place] [address] PCP - General INTERNAL MEDICINE 06/22/17 Bharath Alexander MD [address] [place] [address] CARDIOVASCULAR DISEASE 06/22/17
--- OUTSIDE RECORDS SUMMARY | 2024-09-10 17:47 | XMS_ITS | Continuity of Care Document ---
Author Organization [facility] Address [address] [place] [address] Phone Care Team Providers Care Sr. Manager Name Role Phone Ze Renteria MD, FACS [...] Providers Copied on Encounter Office/outpa tient Visit, [facility], [address] [place] [address] [address], [place], [place], [address], tel:[phone] SEC [place] Cornea check (chief complaint) Anterior basement membrane dystrophy of both eyesDry eye syndrome of bilateral lacrimal glands 5 [place] Ze. [facility] [employer], [address], [place], [place], [address], . tel:[phone] Referring Provider: yAan Richey OD, [address] [place] [address], [address]. tel:[phone] Office/outpa tient Visit, [facility], [facility] [employer] [address], [place], [place], [address], tel:[phone] SEC [place] cornea eval (chief complaint) Recurrent erosion of cornea, bilateralSeco ndary corneal edema, left eyeInj conjunctiva and corneal abrasion w/o fb, left eye, initAnterior basement membrane dystrophy of both eyes 4 [place] Ze. [facility] [employer], [address], [place], [place], [address], . tel:[phone] Referring Provider: Ayan Richey OD, [address] [place] [address], [address]. tel:[phone] Office/outpa tient Visit, [facility], [address] [place], [place] [address]st [address], [place], [place], [address], tel:[phone] SEC Quang CARRASCO Professional Follow up visit (chief complaint) Corneal ulcer of left eye Oct-0 3 Renee OD Miri. [address] [employer], [address], [place], [place], [address], . tel:[phone] Referring Provider: Ayan Richey OD, [address] [place] [address], [place], [address]. tel:[phone] Office/outpa tient Visit, [facility], [address] [place] [address] [address], [place], [place], [address], tel:[phone] SEC [place] Professional Cornea (chief complaint) Corneal ulcer of left eye 3 Myra Ze. [address] [place] [address] [address] [facility], [address], [place], [place], [address], [place]. tel:[phone] Referring Provider: Ayan Richey OD, [address] [place] [address], [place], [address]. tel:[phone] Office/outpa tient Visit, [facility], [address] [place] [address] [address], [place], [place], [address], tel:[phone] SEC [place] Professional Corneal Ulcer (chief complaint) Corneal ulcer of left eye 3 [place] Ze. [address] [place] [address], [address], [place], [place], [address], [place]. tel:[phone] Referring Provider: Ayan Richey OD, [address] [place] [address], [place], [address]. tel:[phone] Office/outpa tient Visit, [facility], [address] [place] [address] [address], [place], [place], [address], [place] tel:[phone] SEC [place] Corneal Ulcer (chief complaint) Corneal ulcer of left eye 3 Myra Ze. [address] [place] [address] Smart [address] [facility], [address], [place], [place], [address], [place]. tel:[phone] Referring Provider: Ayan Richey OD, [address] [place], [place] [address], [address]. tel:[phone] Office/outpa tient Visit, [facility], [address] [place] [address], [place], [place], [address], [place] tel:[phone] SEC [place] Cornea evaluation (chief complaint) Corneal ulcer of left eye 3 Myra Kunz. [address] [place], [address], [place], [place], [address], [place]. tel:[phone] Referring Provider: Ayan Richey OD, [address] [facility], [place], [address]. tel:[phone] Family History Family Member Type Diagnosis Age At Onset Problem Family history of Diabetes m henry Payers Payer name Insurance type Covered libertarian ID Authorsneha tidwell(s) [place] [id number] [place] [id number] Social History Type Description Quantity Date Captured [...] was able to get her drop from [employer] just before they closed on Monday. Pt [...]
--- OUTSIDE RECORDS SUMMARY | 2024-09-10 17:47 | XMS_ITS | Encounter Summary ---
Author Organization [facility] Address [facility] [place] [address] Care Team Providers Care Carpenter Name Role Phone Rena Asher MD Primary Care Provider [phone] Bharath Alexander MD Unavailable Unavailab le Encounter Details Date Type Department Care Team (Late st Contact Info) Description 06/29/2017 Abstract [facility] [address] [place] [phone] Bharath Alexander MD Social History Tobacco Use [...] on filedocumented in this encounter Care Teams Carpenter Relationship Specialty Start Date End Date Rena Asher MD [address] [place] [address] PCP - General INTERNAL MEDICINE 06/22/17 Bharath Alexander MD [address] [place] [address] CARDIOVASCULAR DISEASE 06/22/17 documented as of this encounter
== END 2024-09-10 15:52 | disposition home or self-care (01) ==
PROVIDERS: PCP Internal Medicine; Visit Provider Internal Medicine
DX: I50.9 Heart failure, unspecified (principal); E83.51 Hypocalcemia; D64.9 Anemia, unspecified; A04.71 Enterocolitis due to Clostridium difficile, recurrent
CPT/HCPCS: 36415; 80053; 83880; 85025; 85055; 87493

== ENCOUNTER 2024-11-01 10:22 | Outpatient (CLI) | payer MEDICARE, SELFPAY ==
[2024-11-01 13:25] LABS: Hematocrit 37.8 % (35.0-42.0); Hemoglobin 12.6 g/dL (11.7-13.8); Immature Platelet Fraction Pct 4.3 % (1.0-7.0); Mean Corpuscular HGB Conc 33.3 g/dL (32-36); Mean Corpuscular Hemoglobin 34.1 pg (27.0-31.0); Mean Corpuscular Volume 102.4 fL (78.0-102.0); Mean Platelet Volume 11.6 fl (9.2-11.8); Platelet Count Result 87 K/mm3 (150-420); Red Blood Count 3.69 M/mm3 (4.20-5.40); Red Cell Distribution Width 15.5 % (11.6-14.4); White Blood Count 4.1 K/mm3 (4.8-10.8)
[2024-11-01 13:27] LABS: Add Urine Microscopic? YES; Appearance Urine Clear (Clear); Bilirubin Urine Negative (Negative); Blood Urine Trace-intact (Negative); Glucose Urine UA Negative (Negative); Ketones Urine Negative (Negative); Leukocyte Esterase Ur Trace LEU/UL (Negative); Nitrate Urine Negative (Negative); Protein Urine Negative (Negative); Urobilinogen Urine 0.2 mg/dL (0.2-1.0)
[2024-11-01 13:50] LABS: Color Urine Yellow (Yellow); RBC Urine 0-2 /hpf (0-2); WBC Urine 0-3 /hpf (0-3)
[2024-11-01 13:51] LABS: Bacteria Urine Trace /hpf; Squamous Epithelial Cell Urine Few /hpf (Few)
[2024-11-01 13:52] LABS: Mucus Urine Present /lpf
[2024-11-01 13:56] LABS: Alanine Aminotransferase 27 U/L (14-59); Albumin Level 3.4 g/dL (3.4-5.0); Alkaline Phosphatase 99 U/L (46-116); Anion Gap 8 mmol/L (4-12); Aspartate Amino Transferase 35 U/L (15-37); Bilirubin,Total 1.2 mg/dL (0.00-1.00); Blood Urea Nitrogen 18 mg/dL (7-18); Calcium 9.4 mg/dL (8.5-10.1); Carbon Dioxide 31 mmol/L (21-32); Chloride 103 mmol/L (98-108); Cholesterol 187 mg/dL (0-200); Estimated Glomerular Filt Rate 50; Glucose 83 mg/dL (70-99); HDL Direct 67 mg/dL (40-60); LDL Cholesterol Calculated 100 mg/dL (<130); Osmolality Calculated 294 mOsm/kg (285-295); Potassium 4.9 mmol/L (3.5-5.1); Sodium 142 mmol/L (136-145); Total Protein 7.4 g/dL (6.4-8.2); Triglycerides 102 mg/dL (0-150); Uric Acid 4.4 mg/dL (2.6-6.0)
[2024-11-01 14:44] LABS: Creatinine Urine 154.29 mg/dL (40-278); MALB Creatinine Ratio 8.4 mg/g (0-30); Microalbumin Urine Random < 13.0 mg/L
[2024-11-01 14:59] LABS: Hemoglobin A1C 5.3 % (<5.7)
--- OUTSIDE RECORDS SUMMARY | 2024-11-02 13:37 | XMS_ITS | Continuity of Care Document ---
Author Organization [facility] Address [address] [place] [address] Phone Care Team Providers Care Capability Lead Name Role Phone Ze Renteria MD, FACS [...] Providers Copied on Encounter Office/outpa tient Visit, [facility], [address] [place] [address] [employer] [address], [place], [place], [address], tel:[phone] SEC [place] Cornea check (chief complaint) Anterior basement membrane dystrophy of both eyesDry eye syndrome of bilateral lacrimal glands 5 Myra Ze. [facility] [employer], [address], [place], [place], [address], . tel:[phone] Referring Provider: Ayan Rcihey OD, [address] [place] [address], [address]. tel:[phone] Office/outpa tient Visit, [facility], [facility] [employer] [address], [place], [place], [address], tel:[phone] SEC [place] cornea eval (chief complaint) Recurrent erosion of cornea, bilateralSeco ndary corneal edema, left eyeInj conjunctiva and corneal abrasion w/o fb, left eye, initAnterior basement membrane dystrophy of both eyes 4 [place] Ze. [facility] [employer], [address], [place], [place], [address], . tel:[phone] Referring Provider: Ayan Richey OD, [address] [place] [address], [address]. tel:[phone] Office/outpa tient Visit, [facility], [address] [place], [place] [address]st [address], [place], [place], [address], tel:[phone] SEC Quang CARRASCO Professional Follow up visit (chief complaint) Corneal ulcer of left eye Oct-0 3 Renee OD Miri. [address] [employer], [address], [place], [place], [address], . tel:[phone] Referring Provider: Ayan Richey OD, [address] [place] [address], [place], [address]. tel:[phone] Office/outpa tient Visit, [facility], [address] [place] [address] [address], [place], [place], [address], tel:[phone] SEC Qu[place] Professional Cornea (chief complaint) Corneal ulcer of left eye 3 Myra Ze. [address] [place] [address] [employer] [facility], [address], [place], [place], [address], [place]. tel:[phone] Referring Provider: Ayan Richey OD, [address] [place] [address], [place], [address]. tel:[phone] Office/outpa tient Visit, [facility], [address] [place] [address] [address], [place], [place], [address], tel:[phone] SEC [place] Professional Corneal Ulcer (chief complaint) Corneal ulcer of left eye 3 [place] Ze. [address] [place] [address], [address], [place], [place], [address], [place]. tel:[phone] Referring Provider: Ayan Richey OD, [address] [place] [address], [place], [address]. tel:[phone] Office/outpa tient Visit, [facility], [address] [place] [address] [address], [place], [place], [address], [place] tel:[phone] SEC [place] Corneal Ulcer (chief complaint) Corneal ulcer of left eye 3 Myra Ze. [address] [place] [address] [employer] [facility], [address], [place], [place], [address], [place]. tel:[phone] Referring Provider: Ayan Richey OD, [address] [place], [place] [address] [place], [address]. tel:[phone] Office/outpa tient Visit, [facility], [address], [place], [place], [address], [place] tel:[phone] SEC [place] Cornea evaluation (chief complaint) Corneal ulcer of left eye 3 Myra Kunz. [address], [address], [place], [place], [address], [place]. tel:[phone] Referring Provider: yAan Richey OD, [address] [facility], [place], [address]. tel:[phone] Family History Family Member Type Diagnosis Age At Onset Problem Family history of Diabetes m henry Payers Payer name Insurance type Covered green party ID Authorsneha tidwell(s) [place] [id number] [place] [id number] Social History Type Description Quantity Date Captured [...] counseling completed Goal Tobacco cessation counseling completed Patient Education Corneal Ulcer: Care Ins tructions [...] was able to get her drop from [employer] just before they closed on Monday. Pt [...]
--- OUTSIDE RECORDS SUMMARY | 2024-11-02 13:37 | XMS_ITS | Encounter Summary ---
Author Organization [facility] Address [facility] [place] [address] Care Team Providers Care Press Hand Name Role Phone Rena Asher MD Primary Care Provider [phone] Bharath Alexander MD Unavailable Unavailab le Encounter Details Date Type Department Care Team (Late st Contact Info) Description 06/29/2017 Abstract [facility] [address] [place] [address] [phone] Bharath Alexander MD Social History Tobacco Use [...] on filedocumented in this encounter Care Teams Press Hand Relationship Specialty Start Date End Date Rena Asher MD [address] [place] [address] PCP - General INTERNAL MEDICINE 06/22/17 Bharath Alexander MD [address] [place] [address] CARDIOVASCULAR DISEASE 06/22/17 documented as of this encounter
--- OUTSIDE RECORDS SUMMARY | 2024-11-02 13:37 | XMS_ITS | Clinical Summary ---
Author Organization [facility] Address [address] [place] [address] Care Team Providers Care Manager Of Product Name Role Phone Rena Asher MD Primary Care Provider [phone] Bharath Alexander MD Unavailable Unavailab le Allergies [...] Td Vaccines ( 1 - Tdap) 01/07/1959 Pneumococcal Vaccine: 50+ Ye ars (1 of 1 - PCV) 01/07/1990 Zoster Vaccines (1 of 2) 01/07/1990 Annual Medicare Wellness Visit 01/07/2005 Dexa Scan (General) 01/07/2005 RSV Immunization or 60+ Years (1 - 1-dose 75+ series) 01/07/2015 COVID-19 Vaccine ( - 2023-2 5 season) 2024 Meningococcal B Vaccine Aged Out No l onger eligible based on patient's age to complete this topic Meningococcal Vaccine Aged Out No mae puma eligible based on patient's age to complete this topic RSV Immunizations Under 20 Months Aged Out No longer eligible based on patient's age to complete this topic Insurance [facility] MEDICARE Care Teams Manager Of Product Relationship Specialty Start Date End Date Rena Asher MD [address] [place] [address] PCP - General INTERNAL MEDICINE 06/22/17 Bharath Alexander MD [address] [place] [address] CARDIOVASCULAR DISEASE 06/22/17
== END 2024-11-01 10:23 | disposition home or self-care (01) ==
LOC: CHSLAB 12:56
PROVIDERS: PCP Internal Medicine; Visit Provider Internal Medicine
DX: E78.2 Mixed hyperlipidemia (principal); N39.0 Urinary tract infection, site not specified; E11.65 Type 2 diabetes mellitus with hyperglycemia; E79.0 Hyperuricemia without signs of inflammatory arthritis and tophaceous disease
CPT/HCPCS: 36415; 80053; 80061; 81001; 82043; 83036; 84550; 85027; 85055

== ENCOUNTER 2025-01-10 12:44 | Outpatient (CLI) | payer MEDICARE, SELFPAY ==
--- NOTE | ~2025-01-10 | CT_ITS ---
Clinical Indication: Liver cancer, weight loss, cough CT Scan of the Chest, Abdomen, and Pelvis with Contrast: Technique: Contiguous sections were acquired throughout the chest, abdomen, and pelvis after intraven ous administration of 100 cc of Omnipaque 350. Dose reduction technique was used on this scan by uti angelinaing automated exposure control and iterative reconstruction technique. The dose-length product (DL P) was 505.19 mGy-cm. Comparison: 05/31/2024 Findings: There is no evidence of any significant mediastinal, hilar or axillary lymphadenopathy. The mediastin al soft tissues Vascular structures appear normal. There is no evidence of pleural or pericardial effusion. There are extensive tree-in-bud opacities in the central portion of the right upper lobe, slightly la rger irregular areas of nodular/consolidation peripherally in this region. There is more extensive de nse consolidation in the peripheral right lower lobe with air bronchograms and mild tree-in-bud nodul arity. Left lung is clear. There is cirrhotic morphology of liver with probable diffuse fatty infiltration. No intrahepatic belo w dilatation or hepatic mass seen. Cholecystectomy clips are present. Spleen is enlarged, measuring 1 6.2 cm in length. The pancreas, adrenals and kidneys are within normal limits. There are atherosclero tic calcifications of the aorta. IVC filter in place. No lymphadenopathy. No bowel obstruction or bowel wall thickening. There is no evidence to suggest acute appendicitis. Urinary bladder is unremarkable. No pelvic mass evident. No ascites seen. There is streak artifact in the pelvis from right hip arthroplasty. Impression: Pneumonia and small airways infection extensively involving the right lower lobe, and to a lesser ext ent, the right upper lobe. Please see details above. Cirrhotic liver with associated splenomegaly. No definite evidence for active malignancy/metastatic disease. Reviewed, dictated and finalized at [facility]. Impression: Pneumonia and small airways infection extensively involving the right lower lob e, and to a lesser extent, the right upper lobe. Please see details above. Cirrhotic liver with associated splenomegaly. No definite evidence for active malignancy/metastatic disease.
--- OUTSIDE RECORDS SUMMARY | 2025-01-10 12:47 | XMS_ITS | Clinical Summary ---
Author Organization [facility] Address [address] [place] [address] Care Team Providers Care Cisco Network Engineer Name Role Phone Rena Asher MD Primary Care Provider [phone] Bharath Alexander MD Unavailable Unavailab le Allergies [...] patient's age to complete this topic Insurance [facility] MEDICARE Care Teams Cisco Network Engineer Relationship Specialty Start Date End Date Rena Asher MD [address] [place] [address] PCP - General INTERNAL MEDICINE 06/22/17 Bharath Alexander MD [address] [place] [address] CARDIOVASCULAR DISEASE 06/22/17
--- OUTSIDE RECORDS SUMMARY | 2025-01-10 12:47 | XMS_ITS | Continuity of Care Document ---
Author Organization [facility] Address [address] [place] [address] Phone Care Team Providers Care Business Functional Analyst Name Role Phone Ze Renteria MD, FACS [...] Providers Copied on Encounter Office/outpa tient Visit, [facility], [address] [place] [address] [employer], [place], [place], [address], tel:[phone] SEC [place] Cornea check (chief complaint) Anterior basement membrane dystrophy of both eyesDry eye syndrome of bilateral lacrimal glands 5 Myra Ze. [facility] [address], [address], [place], [place], [address], . tel:[phone] Referring Provider: Ayan Richey OD, [address] [place] [address], [address]. tel:[phone] Office/outpa tient Visit, [facility], [facility] [address], [place], [place], [address], tel:[phone] SEC [place] cornea eval (chief complaint) Recurrent erosion of cornea, bilateralSeco ndary corneal edema, left eyeInj conjunctiva and corneal abrasion w/o fb, left eye, initAnterior basement membrane dystrophy of both eyes 4 [place] Ze. [facility] [address], [address], [place], [place], [address], . tel:[phone] Referring Provider: Ayan Richey OD, [address] [place] [address], [address]. tel:[phone] Office/outpa tient Visit, [facility], [address] [place], [place] [address], [place], [place], [address], tel:[phone] SEC [place] Professional Follow up visit (chief complaint) Corneal ulcer of left eye Oct-0 3 Renee OD Miri. [address], [address], [place], [place], [address], . tel:[phone] Referring Provider: Ayan Richey OD, [address] [place] [address], [place], [address]. tel:[phone] Office/outpa tient Visit, [facility], [address] [place] [address] [address], [place], [place], [address], tel:[phone] SEC [place] Professional Cornea (chief complaint) Corneal ulcer of left eye 3 Myra Ze. [address] [place] [address] [employer] [facility], [address], [place], [place], [address], [place]. tel:[phone] Referring Provider: Ayan Richey OD, [address] [place] [address], [place], [address]. tel:[phone] Office/outpa tient Visit, [facility], [address] [place] [address] [address], [place], [place], [address], tel:[phone] SEC [place] Professional Corneal Ulcer (chief complaint) Corneal ulcer of left eye 3 [place] Ze. [address] [place] [address], [address], [place], [place], [address], [place]. tel:[phone] Referring Provider: Ayan Richey OD, [address] [place] [address], [place], [address]. tel:[phone] Office/outpa tient Visit, [facility], [address] [place] [address] [address], [place], [place], [address], [place] tel:[phone] SEC [place] Corneal Ulcer (chief complaint) Corneal ulcer of left eye 3 Myar Ze. [address] [place] [address] [employer] [facility], [address], [place], [place], [address], [place]. tel:[phone] Referring Provider: Ayan Richey OD, [address] [place], [place] [address], [address]. tel:[phone] Office/outpa tient Visit, [facility], [address], [place], [place], [address], [place] tel:[phone] SEC [place] Cornea evaluation (chief complaint) Corneal ulcer of left eye 3 Myra Kunz. [address], [address], [place], [place], [address], [place]. tel:[phone] Referring Provider: Ayan Richey OD, [address] [facility], [place], [address]. tel:[phone] Family History Family Member Type Diagnosis Age At Onset Problem Family history of Diabetes m henry Payers Payer name Insurance type Covered libertarian ID Authorsneha tidwell(s) [place] [id number] [place] [id number] Social History Type Description Quantity Date Captured [...] was able to get her drop from [facility] just before they closed on Monday. Pt [...]
--- OUTSIDE RECORDS SUMMARY | 2025-01-10 12:47 | XMS_ITS | Encounter Summary ---
Author Organization [facility] Address [facility] [place] [address] Care Team Providers Care Truss Driver Helper Name Role Phone Rena Asher MD Primary Care Provider [phone] Bharath Alexander MD Unavailable Unavailab le Encounter Details Date Type Department Care Team (Late st Contact Info) Description 06/29/2017 Abstract [facility] [address] [place] [id number] [phone] Bharath Alexander MD Social History Tobacco Use [...] on filedocumented in this encounter Care Teams Truss Driver Helper Relationship Specialty Start Date End Date Rena Asher MD [address] [place] [address] PCP - General INTERNAL MEDICINE 06/22/17 Bharath Alexander MD [address] [place] [address] CARDIOVASCULAR DISEASE 06/22/17 documented as of this encounter
[2025-01-10 13:10] LABS: Estimated Glomerular Filt Rate > 60
== END 2025-01-10 12:45 | disposition home or self-care (01) ==
LOC: CHSIMG 12:45
PROVIDERS: PCP Internal Medicine; Visit Provider Internal Medicine
DX: C22.8 Malignant neoplasm of liver, primary, unspecified as to type (principal); R63.4 Abnormal weight loss; R05.9 Cough, unspecified; J18.9 Pneumonia, unspecified organism; K74.60 Unspecified cirrhosis of liver; R16.1 Splenomegaly, not elsewhere classified
CPT/HCPCS: 71260; 74177; Q9967

== ENCOUNTER 2025-01-16 15:35 | Outpatient (CLI) | payer MEDICARE, SELFPAY ==
--- OUTSIDE RECORDS SUMMARY | 2025-01-16 15:41 | XMS_ITS | Clinical Summary ---
Author Organization [facility] [place] Address [address] [place] [address] Care Team Providers Care Customer Care Representative Name Role Phone Rena Asher MD Primary Care Provider [phone] Bharath Alexander MD Unavailable Unavailab le Allergies [...] patient's age to complete this topic Insurance [facility] MEDICARE Care Teams Customer Care Representative Relationship Specialty Start Date End Date Rena Asher MD [address] [place] [address] PCP - General INTERNAL MEDICINE 06/22/17 Bharath Alexander MD [address] [place] [address] CARDIOVASCULAR DISEASE 06/22/17
--- OUTSIDE RECORDS SUMMARY | 2025-01-16 15:41 | XMS_ITS | Continuity of Care Document ---
Author Organization [facility] Address [address] [place] [address] Phone Care Team Providers Care Sandblaster Paint Sprayer Name Role Phone Ze Renteria MD, FACS [...] Providers Copied on Encounter Office/outpa tient Visit, [facility], [address] [place] [address] [address], [place], [place], [address], tel:[phone] SEC [place] Professional cornea check (chief complaint) Recurrent erosion of cornea, bilateralAnte rior basement membrane dystrophy (ABMD) of both eyes 5 Myra Kunz. [address] [place] [address] [employer], [address], [place], [address], . tel:[phone] Referring Provider: Ayan Richey OD, [address] [place] [address], [address]. tel:[phone] Office/outpa tient Visit, [facility], [facility] [employer] [address], [place], [place], [address], tel:[phone] SEC [place] Cornea check (chief complaint) Anterior basement membrane dystrophy of both eyesDry eye syndrome of bilateral lacrimal glands 5 Myra Kunz. [facility] [employer], [address], [place], [address], . tel:[phone] Referring Provider: Ayan Richey OD, [address] [place] [address], [address]. tel:[phone] Office/outpa tient Visit, [facility], [address] [place] [address] [address], [place], [place], [address], tel:[phone] SEC [place] cornea eval (chief complaint) Recurrent erosion of cornea, bilateralSeco ndary corneal edema, left eyeInj conjunctiva and corneal abrasion w/o fb, left eye, initAnterior basement membrane dystrophy of both eyes 4 Myra Ze. [address] [place] [address] Ning [facility], [address], [place], [place], [address], . tel:[phone] Referring Provider: Ayan Richey OD, [address] [place] [address], [place], [address]. tel:[phone] Office/outpa tient Visit, [facility], [address] [place] [address] [address], [place], [place], [address], tel:[phone] [place] Professional Follow up visit (chief complaint) Corneal ulcer of left eye Oct- 3 Renee OD Miri. [address] [place] [address] Ning [facility], [address], [place], [place], [address], . tel:[phone] Referring Provider: Ayan Richey OD, [address] [place] [address], [address]. tel:[phone] Office/outpa tient Visit, [facility], [address] [place] [address] [address], [place], [place], [address], tel:[phone] SEC [place] Professional Cornea (chief complaint) Corneal ulcer of left eye 3 [place] Ze. [address] [place] [address] Ning [facility], [address], [place], [place], [address], . tel:[phone] Referring Provider: Ayan Richey OD, [address] [place] [address], [address]. tel:[phone] Office/outpa tient Visit, [facility], [address] [place] [address] [address], [place], [place], [address], [place] tel:[phone] SEC [place] Professional Corneal Ulcer (chief complaint) Corneal ulcer of left eye 3 Myra Ze. [address] [place] [address] Ning [facility], [address], [place], [place], [address], . tel:[phone] Referring Provider: Ayan Richey OD, [address] [place] [address], [address]. tel:[phone] Office/outpa tient Visit, [facility], [address] [place] [address], [place], [address], tel:[phone] SEC [place] Corneal Ulcer (chief complaint) Corneal ulcer of left eye 3 Myra Kunz. [address] [place] [address] [address] [facility], [address], [place], [address], . tel:[phone] Referring Provider: Ayan Richey OD, [address] [place] [address], [address]. tel:[phone] Office/outpa tient Visit, [facility], [address] [place] [address], [place], [address], tel:[phone] SEC [place] Cornea evaluation (chief complaint) Corneal ulcer of left eye 3 Myra Ze. [address] [place] [address] [address] [facility], [address], [place], [address], . tel:[phone] Referring Provider: Ayan Richey OD, [address] [place] [address], [address]. tel:[phone] Family History Family Member Type Diagnosis Age At Onset Problem Family history of Diabetes m henry Payers Payer name Insurance type Covered alliance party ID Jasen tidwell(s) [place] [id number] [facility] [id number] Social History Type Description Quantity Date Captured [...] was able to get her drop from [employer] just before they closed on Monday. Pt [...]
--- OUTSIDE RECORDS SUMMARY | 2025-01-16 15:41 | XMS_ITS | Encounter Summary ---
Author Organization [facility] Address [facility] [place] [address] Care Team Providers Care Evp Chief Exploration Officer Name Role Phone Rena Asher MD Primary Care Provider [phone] Bharath Alexander MD Unavailable Unavailab le Encounter Details Date Type Department Care Team (Late st Contact Info) Description 06/29/2017 Abstract [facility] [address] [place] [id number] [phone] Bharath Alexander MD Social History Tobacco Use [...] on filedocumented in this encounter Care Teams Evp Chief Exploration Officer Relationship Specialty Start Date End Date Rena Asher MD [address] [place] [address] PCP - General INTERNAL MEDICINE 06/22/17 Bharath Alexander MD [address] [place] [address] CARDIOVASCULAR DISEASE 06/22/17 documented as of this encounter
[2025-01-16 16:53] LABS: Procalcitonin 0.1 ng/mL
== END 2025-01-16 15:36 | disposition home or self-care (01) ==
PROVIDERS: PCP Internal Medicine; Visit Provider Internal Medicine
DX: J18.9 Pneumonia, unspecified organism (principal); R65.10 Systemic inflammatory response syndrome (SIRS) of non-infectious origin without acute organ dysfunction
CPT/HCPCS: 36415; 84145; 86480

== ENCOUNTER 2025-01-28 13:25 | Outpatient (CLI) | payer MEDICARE, SELFPAY ==
--- OUTSIDE RECORDS SUMMARY | 2025-01-28 13:32 | XMS_ITS | Encounter Summary ---
Author Organization [facility] Address [facility] [place] [address] Care Team Providers Care Putty And Caulking Supervisor Name Role Phone Rena Asher MD Primary Care Provider [phone] Bharath Alexander MD Unavailable Unavailab le Encounter Details Date Type Department Care Team (Late st Contact Info) Description 06/29/2017 Abstract [facility] [address] [place] [id number] [phone] Bharath Alexander MD Social History Tobacco Use [...] on filedocumented in this encounter Care Teams Putty And Caulking Supervisor Relationship Specialty Start Date End Date Rena Asher MD [address] [place] [address] PCP - General INTERNAL MEDICINE 06/22/17 Bharath Alexander MD [address] [place] [address] CARDIOVASCULAR DISEASE 06/22/17 documented as of this encounter
--- OUTSIDE RECORDS SUMMARY | 2025-01-28 13:32 | XMS_ITS | Continuity of Care Document ---
Author Organization [facility] Address [address] [place] [address] Phone Care Team Providers Care Uptwister Tender Name Role Phone Ze Renteria MD, FACS [...] Providers Copied on Encounter Office/outpa tient Visit, [facility] [place], [facility] [address], [place], [place], [address], tel:[phone] [place] Professional cornea check (chief complaint) Recurrent erosion of cornea, bilateralAnte rior basement membrane dystrophy (ABMD) of both eyes Myra Kunz. [facility] [employer], [address], [place], [place], [address], [place]. tel:[phone] Referring Provider: Ayan Richey OD, [address] [place] [address], [address]. tel:[phone] Office/outpa tient Visit, [facility] [place], [address], [place], [place], [address], tel:[phone] SEC [place] Cornea check (chief complaint) Anterior basement membrane dystrophy of both eyesDry eye syndrome of bilateral lacrimal glands 5 Myra Kunz. [address], [address], [place], [place], [address], [place]. tel:[phone] Referring Provider: Ayan Richey OD, [address] [place] [address], [address]. tel:[phone] Office/outpa tient Visit, [facility] [place], [facility] [address], [place], [place], [address], tel:[phone] SEC [place] cornea eval (chief complaint) Recurrent erosion of cornea, bilateralSeco ndary corneal edema, left eyeInj conjunctiva and corneal abrasion w/o fb, left eye, initAnterior basement membrane dystrophy of both eyes 4 [place] Ze. [address] [place], [place] [address]crest [employer] [facility], [address], [place], [place], [address], . tel:[phone] Referring Provider: Ayan Richey OD, [address] [place] [address], [place], [address]. tel:[phone] Office/outpa tient Visit, [facility] [place], [address] [place] [address] [address], [place], [place], [address], tel:[phone] SEC [place] Professional Follow up visit (chief complaint) Corneal ulcer of left eye Oct0 3 Renee OD Miri. [address] [place] [address] [employer] [facility], [address], [place], [place], [address], [place]. tel:[phone] Referring Provider: Ayan Richey OD, [address] [place] [address], [place], [address]. tel:[phone] Office/outpa tient Visit, [facility] [place], [address] [place] [address] [address], [place], [place], [address], [place] tel:[phone] SEC [place] Professional Cornea (chief complaint) Corneal ulcer of left eye 3 [place] Ze. [address] [place], [place] [address]crest [employer] [facility], [address], [place], [place], [address], [place]. tel:[phone] Referring Provider: Ayan Richey OD, [address] [place] [address], [place], [address]. tel:[phone] Office/outpa tient Visit, [facility] [place], [address] [place] [address] [address], [place], [place], [address], [place] tel:[phone] SEC [place] Professional Corneal Ulcer (chief complaint) Corneal ulcer of left eye [address] [place] [address] [employer] [address], [place], [address], . tel:[phone] Referring Provider: Ayan Richey OD, [address] [place] [address], [place], [address]. tel:[phone] Office/outpa tient Visit, [facility] [place], [address] [place], [place] [address], [place], [address], tel:[phone] [place] Corneal Ulcer (chief complaint) Corneal ulcer of left eye 3 Myra Kunz. [address] [place] [address] [employer] [address], [place], [address], . tel:[phone] Referring Provider: Ayan Richey OD, [address] [place] [address], [place], [address]. tel:[phone] Office/outpa tient Visit, [facility], [address] [place], [place] [address], [place], [address], tel:[phone] [place] Cornea evaluation (chief complaint) Corneal ulcer of left eye 3 Myra Kunz. [address] [place] [address] [employer] [facility], [address], [place], [address], . tel:[phone] Referring Provider: Ayan Richey OD, [address] [place] [address], [address]. tel:[phone] Family History Family Member Type Diagnosis Age At Onset Problem Family history of Diabetes sanam figueroa Payers Payer name Insurance type Covered alliance party ID Authoriza tion(s) Medicare [facility] [id number] [facility] [id number] Social History Type Description Quantity Date Captured [...] was able to get her drop from [employer] just before they closed on Monday. Pt [...]
--- OUTSIDE RECORDS SUMMARY | 2025-01-28 13:32 | XMS_ITS | Clinical Summary ---
Author Organization [facility] Address [address] [place] [address] Care Team Providers Care Vasc Tech Name Role Phone Rena Asher MD Primary Care Provider [phone] Bharath Alexander MD Unavailable Unavailab le Allergies [...] patient's age to complete this topic Insurance [facility] MEDICARE Care Teams Vasc Tech Relationship Specialty Start Date End Date Rena Asher MD [address] [place] [address] PCP - General INTERNAL MEDICINE 06/22/17 Bharath Alexander MD [address] [place] [address] CARDIOVASCULAR DISEASE 06/22/17
[2025-01-28 13:39] LABS: Hematocrit 37.9 % (35.0-42.0); Hemoglobin 12.2 g/dL (11.7-13.8); Immature Platelet Fraction Pct 1.8 % (1.0-7.0); Mean Corpuscular HGB Conc 32.2 g/dL (32-36); Mean Corpuscular Hemoglobin 32.2 pg (27.0-31.0); Mean Corpuscular Volume 100.0 fL (78.0-102.0); Platelet Count Result 106 K/mm3 (150-420); Red Blood Count 3.79 M/mm3 (4.20-5.40); White Blood Count 7.3 K/mm3 (4.8-10.8)
[2025-01-28 14:41] LABS: Alanine Aminotransferase 42 U/L (6-35); Albumin Level 3.1 g/dL (3.5-5.1); Alkaline Phosphatase 81 U/L (38-126); Anion Gap 0 mmol/L (4-12); Aspartate Amino Transferase 55 U/L (14-36); Bilirubin,Total 1.0 mg/dL (0.2-1.3); Blood Urea Nitrogen 31 mg/dL (7-17); CRP < 0.5 mg/dL (<1.0); Calcium 8.9 mg/dL (8.4-10.2); Carbon Dioxide 32 mmol/L (22-30); Chloride 102 mmol/L (98-107); Estimated Glomerular Filt Rate > 60; Glucose 136 mg/dL (65-110); Iron 112 ug/dL (37-170); Osmolality Calculated 286 mOsm/kg (285-295); Potassium 4.6 mmol/L (3.4-5.0); Sodium 134 mmol/L (137-145); Total Protein 6.5 g/dL (6.3-8.2)
[2025-01-28 15:13] LABS: Ferritin 65.70 ng/mL (11.1-264)
== END 2025-01-28 13:26 | disposition home or self-care (01) ==
LOC: CHSLAB 13:27
PROVIDERS: PCP Internal Medicine; Visit Provider Internal Medicine
DX: J18.9 Pneumonia, unspecified organism (principal); D64.9 Anemia, unspecified
CPT/HCPCS: 36415; 80053; 82728; 83540; 85027; 85055; 85652; 86140

== ENCOUNTER 2025-01-30 15:46 | Outpatient (CLI) | payer MEDICARE, SELFPAY ==
--- NOTE | ~2025-01-30 | XR_ITS ---
CHEST RADIOGRAPH, PA AND LATERAL CLINICAL HISTORY: F/U pneumonia . COMPARISON: 06/02/2024 TECHNIQUE: PA and lateral views of the chest. FINDINGS The cardiomediastinal silhouette is unremarkable. Redemonstration of dense consolidation of the right lower lobe with further extension to the right hi lum, largely unchanged from previous CT examination of the chest dated 06/05/2024. The remainder of the lungs are clear. IMPRESSION: Right lower lobe infiltrate with extension to the right hilum, similar in appearance to CT examinatio n dated 01/10/2025 Reviewed, dictated and finalized at location A. IMPRESSION: Right lower lobe infiltrate with extension to the right hilum, similar in appea [place] to CT examination dated 01/10/2025
--- OUTSIDE RECORDS SUMMARY | 2025-01-30 15:50 | XMS_ITS | Encounter Summary ---
Author Organization [facility] Address [facility] [place] [address] Care Team Providers Care Welder Plasma Arc Name Role Phone Rena Asher MD Primary Care Provider [phone] Bharath Alexander MD Unavailable Unavailab le Encounter Details Date Type Department Care Team (Late st Contact Info) Description 06/29/2017 Abstract [facility] [address] [place] [id number] [phone] Bharath Alexander MD Social History Tobacco Use [...] on filedocumented in this encounter Care Teams Welder Plasma Arc Relationship Specialty Start Date End Date Rena Asher MD [address] [place] [address] PCP - General INTERNAL MEDICINE 06/22/17 Bharath Alexander MD [address] [place] [address] CARDIOVASCULAR DISEASE 06/22/17 documented as of this encounter
--- OUTSIDE RECORDS SUMMARY | 2025-01-30 15:50 | XMS_ITS | Clinical Summary ---
Author Organization [facility] Address [address] [place] [address] Care Team Providers Care Information Services Manager Name Role Phone Rena Asher MD Primary Care Provider [phone] Bharath Alexander MD Unavailable Unavailab le Allergies [...] patient's age to complete this topic Insurance [facility] MEDICARE Care Teams Information Services Manager Relationship Specialty Start Date End Date Rena Asher MD [address] [place] [address] PCP - General INTERNAL MEDICINE 06/22/17 Bharath Alexander MD [address] [place] [address] CARDIOVASCULAR DISEASE 06/22/17
--- OUTSIDE RECORDS SUMMARY | 2025-01-30 15:50 | XMS_ITS | Continuity of Care Document ---
Author Organization [facility] [place] [address] [place] [address] Phone Care Team Providers Care Aluminum Fabrication Supervisor Name Role Phone Ze Renteria MD, [...] Providers Copied on Encounter Office/outpa [place] Visit, [facility] [facility] [employer] [address], [place], [place], [address], tel:[phone] SEC [place] Professional cornea check (chief complaint) Recurrent erosion of cornea, bilateralAnte rior basement membrane dystrophy (ABMD) of both eyes Myra Kunz. [facility] [employer], [address], [place], [place], [address], [place]. tel:[phone] Referring Provider: Ayan Richey OD, [address] [place] [address], [address]. tel:[phone] Office/outpa [place]ient Visit, [facility], [address] [address], [place], [place], [address], tel:[phone] [place] Cornea check (chief complaint) Anterior basement membrane dystrophy of both eyesDry eye syndrome of bilateral lacrimal glands 5 Myra Kunz. [address], [address], [place], [place], [address], [place]. tel:[phone] Referring Provider: Ayan Richey OD, [address] [place] [address], [address]. tel:[phone] Office/outpa [place]ient Visit, [facility] [employer] [address], [place], [place], [address], tel:[phone] [place] cornea eval (chief complaint) Recurrent erosion of cornea, bilateralSeco ndary corneal edema, left eyeInj conjunctiva and corneal abrasion w/o fb, left eye, initAnterior basement membrane dystrophy of both eyes 4 [place] Ze. [address] [place], [place] [address]crest [facility], [address], [place], [place], [address], . tel:[phone] Referring Provider: Ayan Richey OD, [address] [place] [address], [place], [address]. tel:[phone] Office/outpa tient Visit, [facility], [address] [place] [address] [address], [place], [place], [address], tel:[phone] SEC [place] Professional Follow up visit (chief complaint) Corneal ulcer of left eye Oct0 3 Renee OD Miri. [address] [place] [address] [facility], [address], [place], [place], [address], [place]. tel:[phone] Referring Provider: Ayan Richey OD, [address] [place] [address], [place], [address]. tel:[phone] Office/outpa tient Visit, [facility], [address] [place] [address] [address], [place], [place], [address], [place] tel:[phone] SEC [place] Professional Cornea (chief complaint) Corneal ulcer of left eye 3 [place] Ze. [address] [place], [place] [address]crest [facility], [address], [place], [place], [address], [place]. tel:[phone] Referring Provider: Ayan Richey OD, [address] [place] [address], [place], [address]. tel:[phone] Office/outpa tient Visit, [facility], [address] [place] [address] [address], [place], [place], [address], [place] tel:[phone] SEC [place] Professional Corneal Ulcer (chief complaint) Corneal ulcer of left eye [address] [place] [address] [employer], [address], [place], [address], . tel:[phone] Referring Provider: Ayan Richey OD, [address] [place] [address], [place], [address]. tel:[phone] Office/outpa tient Visit, [facility], [address] [place], [place] [address], [place], [address], tel:[phone] [place] Corneal Ulcer (chief complaint) Corneal ulcer of left eye 3 Myra Kunz. [address] [place] [address] [employer], [address], [place], [address], . tel:[phone] Referring Provider: Ayan Richey OD, [address] [place] [address], [place], [address]. tel:[phone] Office/outpa tient Visit, [facility], [address] [place], [place] [address]te [address], [place], [address], tel:[phone] [place] Cornea evaluation (chief complaint) Corneal ulcer of left eye 3 Myra Kunz. [address] [place] [address] [facility], [address], [place], [address], . tel:[phone] Referring Provider: Ayan Richey OD, [address] [place] [address], [address]. tel:[phone] Family History Family Member Type Diagnosis Age At Onset Problem Family history of Diabetes sanam figueroa Payers Payer name Insurance type Covered constitution party ID Authoriza tion(s) Medicare [facility] [id number] [facility] [id number] Social History Type Description Quantity Date Captured [...] was able to get her drop from [employer] just before they closed on Monday. Pt [...]
== END 2025-01-30 15:47 | disposition home or self-care (01) ==
LOC: CHSIMG 15:48
PROVIDERS: PCP Internal Medicine; Visit Provider Internal Medicine
DX: J18.9 Pneumonia, unspecified organism (principal); R91.8 Other nonspecific abnormal finding of lung field
CPT/HCPCS: 71046

== ENCOUNTER 2025-02-13 16:31 | Outpatient (CLI) | payer MEDICARE, SELFPAY ==
--- NOTE | ~2025-02-13 | XR_ITS ---
EXAMINATION: XR chest 2V DATE: 02/13/2025 17:02 INDICATION: SOB TECHNIQUE: Frontal and lateral images of the chest were obtained. COMPARISON: Chest radiograph dated 01/30/2025 and 06/02/2024 FINDINGS: Cardiomediastinal silhouette is mildly enlarged, unchanged. There are 2 less than 5 mm calcified granulomas in the right midlung. Small to moderate size bandlike opacity in the right lower lobe. No pneumothorax. No pleural effusion. No free air under the diaphragm. Prior surgical changes noted i n the upper abdomen. IMPRESSION: 1. Small to moderate sized bandlike opacity in the right lower lobe. The finding is similar to the st udy from 01/30/2025. The finding is new as compared to the study from 06/02/2024. Differential includes atelectasis or infiltrate. Recommend follow-up to resolution to exclude an underlying mass. Consider a chest CT. Reviewed, dictated and finalized at location A. IMPRESSION: 1. Small to moderate sized bandlike opacity in the right lower lobe. The findin g is similar to the study from 01/30/2025. The finding is new as compared to the study from 06/02/2024. Differential includes atelectasis or infiltrate. Recomme nd follow-up to resolution to exclude an underlying mass. Consider a chest CT.
--- OUTSIDE RECORDS SUMMARY | 2025-02-13 16:36 | XMS_ITS | Clinical Summary ---
Author Organization [facility] Address [address] [place] [address] Care Team Providers Care Senior Instructional Designer Name Role Phone Rena Asher MD Primary Care Provider [phone] Bharath Alexander MD Unavailable Unavailab le Allergies [...] 2) 01/07/1990 Annual Medicare Wellness Visit 01/07/2005 RSV Immunization or 60+ Years (1 - 1-dose 75+ series) 01/07/2015 COVID-19 Vaccine (2023-2 5 season) 2024 Meningococcal B Vaccine Aged Out No l onger eligible based on patient's age to complete this topic Meningococcal Vaccine Aged Out No mae puma eligible based on patient's age to complete this topic RSV Immunizations Under 20 Months Aged Out No longer eligible based on patient's age to complete this topic Insurance [facility] MEDICARE Care Teams Senior Instructional Designer Relationship Specialty Start Date End Date Rena Asher MD [address] [place] [address] PCP - General INTERNAL MEDICINE 06/22/17 Bharath Alexander MD [address] [place] [address] CARDIOVASCULAR DISEASE 06/22/17
--- OUTSIDE RECORDS SUMMARY | 2025-02-13 16:36 | XMS_ITS | Continuity of Care Document ---
Author Organization [facility] Address [address] [place] [address] Phone Care Team Providers Care Litigation Attorney Associate Name Role Phone Ze Renteria MD, FACS [...] Providers Copied on Encounter Office/outpa tient Visit, [facility], [facility] [employer] [address], [place], [place], [address], tel:[phone] [place] Professional cornea check (chief complaint) Recurrent erosion of cornea, bilateralAnte rior basement membrane dystrophy (ABMD) of both eyes Myra Kuzn. [facility] [employer], [address], [place], [place], [address], [place]. tel:[phone] Referring Provider: Ayan Richey OD, [address] [place] [address], [address]. tel:[phone] Office/outpa tient Visit, [facility], [address] [address], [place], [place], [address], tel:[phone] SEC [place] Cornea check (chief complaint) Anterior basement membrane dystrophy of both eyesDry eye syndrome of bilateral lacrimal glands 5 Myra Kunz. [address], [address], [place], [place], [address], [place]. tel:[phone] Referring Provider: Ayan Richey OD, [address] [place] [address], [address]. tel:[phone] Office/outpa tient Visit, [facility], [facility] [employer] [address], [place], [place], [address], tel:[phone] SEC [place] cornea eval (chief complaint) Recurrent erosion of cornea, bilateralSeco ndary corneal edema, left eyeInj conjunctiva and corneal abrasion w/o fb, left eye, initAnterior basement membrane dystrophy of both eyes 4 [place] Ze. [address] [place], [place] [address]crest [employer] [facility], [address], [place], [place], [address], . tel:[phone] Referring Provider: Ayan Richey OD, [address] [place] [address], [place], [address]. tel:[phone] Office/outpa tient Visit, [facility], [address] [place] [address] [address], [place], [place], [address], tel:[phone] SEC [place] Professional Follow up visit (chief complaint) Corneal ulcer of left eye Oct0 3 Renee OD Miri. [address] [place] [address] [employer] [facility], [address], [place], [place], [address], [place]. tel:[phone] Referring Provider: Ayan Richey OD, [address] [place] [address], [place], [address]. tel:[phone] Office/outpa tient Visit, [facility], [address] [place] [address] [address], [place], [place], [address], [place] tel:[phone] SEC [place] Professional Cornea (chief complaint) Corneal ulcer of left eye 3 My[address] Ze[address] [place], [place] [address]crest [employer] [facility], [address], [place], [place], [address], [place]. tel:[phone] Referring Provider: Ayan Richey OD, [address] [place] [address], [place], [address]. tel:[phone] Office/outpa tient Visit, [facility], [address] [place] [address] [address], [place], [place], [address], [place] tel:[phone] SEC [place] Professional Corneal Ulcer (chief complaint) Corneal ulcer of left eye [address] [place] [address] [employer], [address], [place], [address], . tel:[phone] Referring Provider: Ayan Richey OD, [address] [place] [address], [place], [address]. tel:[phone] Office/outpa tient Visit, [facility], [address] [place], [place] [address]te [address], [place], [address], tel:[phone] SEC [place] Corneal Ulcer (chief complaint) Corneal ulcer of left eye 3 Myra Kunz. [address] [place] [address] [employer], [address], [place], [address], . tel:[phone] Referring Provider: Ayan Richey OD, [address] [place] [address], [place], [address]. tel:[phone] Office/outpa tient Visit, [facility], [address] [place], [place] [address]te [address], [place], [address], tel:[phone] SEC [place] Cornea evaluation (chief complaint) Corneal ulcer of left eye 3 Myra uKnz. [address] [place] [address] [employer] [facility], [address], [place], [address], . tel:[phone] Referring Provider: Ayan Richey OD, [address] [place] [address], [address]. tel:[phone] Family History Family Member Type Diagnosis Age At Onset Problem Family history of Diabetes sanam figueroa Payers Payer name Insurance type Covered republican ID Authoriza tion(s) Medicare [facility] [id number] [facility] [id number] Social History Type Description Quantity Date Captured [...] was able to get her drop from [employer] just before they closed on Monday. Pt [...]
--- OUTSIDE RECORDS SUMMARY | 2025-02-13 16:36 | XMS_ITS | Encounter Summary ---
Author Organization [facility] Address [facility] [place] [address] Care Team Providers Care Smasher Hand Name Role Phone Rena Asher MD Primary Care Provider [phone] Bharath Alexander MD Unavailable Unavailab le Encounter Details Date Type Department Care Team (Late st Contact Info) Description 06/29/2017 Abstract [facility] [address] [place] [phone] Bharath Alexander MD Social History Tobacco Use [...] on filedocumented in this encounter Care Teams Smasher Hand Relationship Specialty Start Date End Date Rena Asher MD [address] [place] [address] PCP - General INTERNAL MEDICINE 06/22/17 Bharath Alexander MD [address] [place] [address] CARDIOVASCULAR DISEASE 06/22/17 documented as of this encounter
[2025-02-13 16:56] LABS: Hematocrit 38.8 % (35.0-42.0); Hemoglobin 12.6 g/dL (11.7-13.8); Immature Platelet Fraction Pct 1.8 % (1.0-7.0); Mean Corpuscular HGB Conc 32.5 g/dL (32-36); Mean Corpuscular Hemoglobin 33.0 pg (27.0-31.0); Mean Corpuscular Volume 101.6 fL (78.0-102.0); Platelet Count Result 78 K/mm3 (150-420); Red Blood Count 3.82 M/mm3 (4.20-5.40); White Blood Count 5.3 K/mm3 (4.8-10.8)
[2025-02-13 17:09] LABS: Anion Gap 4 mmol/L (4-12); Blood Urea Nitrogen 18 mg/dL (7-17); CRP < 0.5 mg/dL (<1.0); Calcium 9.2 mg/dL (8.4-10.2); Carbon Dioxide 30 mmol/L (22-30); Chloride 103 mmol/L (98-107); Estimated Glomerular Filt Rate > 60; Glucose 179 mg/dL (65-110); Osmolality Calculated 289 mOsm/kg (285-295); Potassium 4.6 mmol/L (3.4-5.0); Sodium 137 mmol/L (137-145)
[2025-02-13 17:15] LABS: NT Pro B Type Natriuretic Pept 646 pg/mL (19.9-100)
== END 2025-02-13 16:32 | disposition home or self-care (01) ==
PROVIDERS: PCP Internal Medicine; Visit Provider Internal Medicine
DX: J18.9 Pneumonia, unspecified organism (principal); I50.9 Heart failure, unspecified; M35.3 Polymyalgia rheumatica; R91.8 Other nonspecific abnormal finding of lung field
CPT/HCPCS: 36415; 71046; 80048; 83880; 85027; 85055; 85652; 86140

== ENCOUNTER 2025-02-19 13:15 | Outpatient (CLI) | payer MEDICARE, SELFPAY ==
--- NOTE | ~2025-02-19 | XR_ITS ---
MODIFIED ESOPHAGRAM HISTORY: Aspiration pneumonia TECHNIQUE: Modified barium esophagram was performed on 02/19/2025. I administered fluoroscopy and performed the exam with speech pathologist. Patient was seated for lateral fluoroscopic imaging for ingestion of thin liquids, pudding, solids and quantified amounts, followed by thin liquids in uncontrolled amounts. This was recorded on tape. A single fluoroscopic spot image was also recorded. The DAP for this procedure was 0.744 Gycm2. The amount of fluoroscopy time used during this procedure was 1.8 minutes. FINDINGS: Oral stage: Adequate function. Pharyngeal stage: Reduced laryngeal elevation and adduction. Reduced tongue base retraction. There is vallecular residue. Laryngeal penetration with small amount of aspiration. Cervical/esophageal stage: Adequate function. IMPRESSION: Pharyngeal dysphagia with laryngeal penetration and aspiration. Please correlate with speech pathologist findings and specific feeding recommendations. Reviewed, dictated and finalized at location A. IMPRESSION: Pharyngeal dysphagia with laryngeal penetration and aspiration. Pl ease correlate with speech pathologist findings and specific feeding recommenda tions.
--- OUTSIDE RECORDS SUMMARY | 2025-02-19 13:35 | XMS_ITS | Encounter Summary ---
Author Organization [facility] Address [facility] [place] [address] Care Team Providers Care Refinery Pipeline Operator Name Role Phone Rena Asher MD Primary Care Provider [phone] Bharath Alexander MD Unavailable Unavailab le Encounter Details Date Type Department Care Team (Late st Contact Info) Description 06/29/2017 Abstract [facility] [address] [place] [phone] Bharath Alexander MD Social History Tobacco Use [...] on filedocumented in this encounter Care Teams Refinery Pipeline Operator Relationship Specialty Start Date End Date Rena Asher MD [address] [place] [address] PCP - General INTERNAL MEDICINE 06/22/17 Bharath Alexander MD [address] [place] [address] CARDIOVASCULAR DISEASE 06/22/17 documented as of this encounter
--- OUTSIDE RECORDS SUMMARY | 2025-02-19 13:35 | XMS_ITS | Clinical Summary ---
Author Organization [facility] Address [address] [place] [address] Care Team Providers Care Leverman Name Role Phone Rena Asher MD Primary Care Provider Bharath Alexander MD Unavailable Unavailab le Allergies [...] patient's age to complete this topic Insurance [facility] MEDICARE Care Teams Leverman Relationship Specialty Start Date End Date Rena Asher MD [address] [place] [address] PCP - General INTERNAL MEDICINE 06/22/17 Bharaht Alexander MD [address] [place] [address] CARDIOVASCULAR DISEASE 06/22/17
--- NOTE | 2025-02-19 15:01 | REHSTMBS ---
Assessment and note entered by Marilyn Riddle COMMODITY MANAGEMENT SPECIALIST Modified Barium Swallow Evaluation Feeding Type Recommended Oral Food Consistency Regular, Level 7 ST Clinical Summary The patient is an 85-year-old female who is referred for a modified barium swallow study due to reported swallowing difficulties for approximately 3 months. The patient reports slow pharyngeal transit for all consistencies, liquids and solids. Patient also reports a history of respiratory difficulty for 3-4 months. The patient was positioned in a lateral view and presented the following consistencies: 5cc thin liquid, cup trails thin liquid, pudding mixed with barium paste, cracker coated with barium paste, and cup trials of mildly thick liquid barium. Oral phase: When presented all of the above consistencies, oral preparation and transit was within functional limits. Pharyngeal phase: When presented 5cc thin liquid, pudding mixed with barium paste, cracker coated with barium paste, and mildly thick liquid via cup, swallow initiation was timely without viewed aspiration or penetration. The cracker was viewed to have trace residue in the vallecula secondary to reduced lingual pressure. When presented cup trials of thin liquid, the patient initially was viewed to have trace laryngeal penetration secondary to reduced laryngeal elevation. When presented a second cup trial of thin liquid barium, the patient was viewed to trace aspiration. The material was viewed to enter the airway below the vocal cords and no effort was made to eject it. Attempted chin tuck posture, to reduce aspiration risk, however additional penetration was viewed. Important to note patient was viewed to have reduced epiglottic inversion. No viewed residue remained in the pyriform sinuses or vallecula. Recommend: 1) Regular diet and 2) mildly thick liquids 3) small drinks 4) upright for all meals 5 ) speech therapy services to address reduced laryngeal elevation and adduction. Would recommend the Ilya Lieberman, laryngeal elevation, effortful swallow, CTAR exercise.
== END 2025-02-19 13:16 | disposition home or self-care (01) ==
PROVIDERS: PCP Internal Medicine; Visit Provider Internal Medicine
DX: R13.13 Dysphagia, pharyngeal phase (principal)
CPT/HCPCS: 74230; 92611

== ENCOUNTER 2025-03-04 14:59 | Outpatient (CLI) | payer MEDICARE, SELFPAY ==
--- OUTSIDE RECORDS SUMMARY | 2025-01-15 08:00 | XMS_ITS | Continuity of Care Document ---
Author Organization [facility] Address [address] [place] [address] Phone Care Team Providers Care Laboratory Technical Specialist Name Role Phone Ze Renteria MD, FACS [...] Providers Copied on Encounter Office/outpa tient Visit, [facility] [place], [facility] [employer] [address], [place], [place], [address], tel:[phone] SEC [place] Professional cornea check (chief complaint) Recurrent erosion of cornea, bilateralAnte rior basement membrane dystrophy (ABMD) of both eyes Myra Kunz. [facility] [employer], [address], [place], [place], [address], [place]. tel:[phone] Referring Provider: Ayan Richey OD, [address] [place] [address], [address]. tel:[phone] Office/outpa tient Visit, [facility] [place], [address], [place], [place], [address], tel:[phone] SEC [place] Cornea check (chief complaint) Anterior basement membrane dystrophy of both eyesDry eye syndrome of bilateral lacrimal glands 5 Myra Kunz. [address], [address], [place], [place], [address], [place]. tel:[phone] Referring Provider: Ayan Richey OD, [address] [place] [address], [address]. tel:[phone] Office/outpa tient Visit, [facility] [place], [facility] [address], [place], [place], [address], tel:[phone] [place] cornea eval (chief complaint) Recurrent erosion of cornea, bilateralSeco ndary corneal edema, left eyeInj conjunctiva and corneal abrasion w/o fb, left eye, initAnterior basement membrane dystrophy of both eyes 4 Myra Ze[address] [place], [place] [address]crest [employer] [facility], [address], [place], [place], [address], . tel:[phone] Referring Provider: Ayan Richey OD, [address] [place] [address], [place], [address]. tel:[phone] Office/outpa tient Visit, [facility] [place], [address] [place] [address] [address], [place], [place], [address], tel:[phone] SEC [place] Professional Follow up visit (chief complaint) Corneal ulcer of left eye Oct0 3 Renee OD Miri. [address] [place] [address] [employer] [facility], [address], [place], [place], [address], [place]. tel:[phone] Referring Provider: Ayan Richey OD, [address] [place] [address], [place], [address]. tel:[phone] Office/outpa tient Visit, [facility] [place], [address] [place] [address] [address], [place], [place], [address], [place] tel:[phone] SEC [place] Professional Cornea (chief complaint) Corneal ulcer of left eye 3 Myra Ze[address] [place], [place] [address]crest [employer] [facility], [address], [place], [place], [address], [place]. tel:[phone] Referring Provider: Ayan Richey OD, [address] [place] [address], [place], [address]. tel:[phone] Office/outpa tient Visit, [facility] [place], [address] [place] [address] [address], [place], [place], [address], [place] tel:[phone] [place] Professional Corneal Ulcer (chief complaint) Corneal ulcer of left eye [address] Ze[address] [place] [address] [employer], [address], [place], [address], . tel:[phone] Referring Provider: Ayan Richey OD, [address] [place] [address], [place], [address]. tel:[phone] Office/outpa tient Visit, [facility] [place], [address] [place], [place] [address]te [address], [place], [address], tel:[phone] SEC [place] Corneal Ulcer (chief complaint) Corneal ulcer of left eye 3 Myra Kunz. [address] [place] [address] [employer], [address], [place], [address], . tel:[phone] Referring Provider: Ayan Richey OD, [address] [place] [address], [place], [address]. tel:[phone] Office/outpa tient Visit, [facility], [address] [place], [place] [address]te [address], [place], [address], tel:[phone] SEC [place] Cornea evaluation (chief complaint) Corneal ulcer of left eye 3 Myra Kunz. [address] [place] [address] [employer] [facility], [address], [place], [address], . tel:[phone] Referring Provider: Ayan Richey OD, [address] [place] [address], [address]. tel:[phone] Family History Family Member Type Diagnosis Age At Onset Problem Family history of Diabetes sanam figueroa Payers Payer name Insurance type Covered constitution party ID Authoriza tion(s) Medicare [facility] [id number] [facility] [id number] Social History Type Description Quantity Date Captured [...] was able to get her drop from [employer] just before they closed on Monday. Pt [...]
--- NOTE | ~2025-03-04 | CT_ITS ---
Exam: CT chest without contrast Clinical History: [Abnormal chest CT ]. Cirrhosis with splenomegaly and ascites Comparison: [ CT chest, abdomen and pelvis 01/10/2025] Technique: Multiple axial CT images of the chest without with IV contrast. Sagittal and coronal reformatted images were obtained. FINDINGS: Lungs and pleura: [ Visualized tracheobronchial tree is patent. Mild bronchiectasis in the right lower lobe, unchanged.] No pleural effusion. No pneumothorax. No pulmonary mass. Stable 4 mm pulmonary nodule in the right upper lobe. Small reticular and bandlike opacities in the posterior medial segment of the right upper lobe, unchanged. Interval improvement in the reticulonodular and groundglass opacities in the right upper lobe, however, small reticulonodular and groundglass opacities remain. There are a few calcified granulomas. Interval decrease in the size of the small to moderate-sized patchy consolidations in the right lower lobe. Mediastinum and pulmonary nargis: [ No mass or adenopathy.] Axillary/intramammary and supraclavicular: [ No mass or adenopathy.] Heart and great vessels: [ Normal heart size.[ [ No pericardial effusion.] [ No thoracic aortic aneurysm.] Moderate atherosclerotic disease in the thoracic aorta. Coronary artery calcifications are noted. Chest Wall: [ Unremarkable.] Upper Abdomen: The liver surface has a micronodular appearance. Prior surgical changes noted in the upper abdomen similar to the prior study. Spleen is enlarged. Moderate amount of ascites in the visualized upper abdomen. There are a few stable lymph nodes in the visualized upper abdomen. Nonspecific thickening of the ambrosio of the distal esophagus and about the GE junction. Osseous structures: [ No acute fracture or destructive lesion.] [ Multilevel degenerative change in the visualized spine.] Additional findings: [ None of significance.] IMPRESSION: 1. Interval improvement in the reticulonodular and groundglass opacities in the right upper lobe, however, small reticulonodular and groundglass opacities remain. Recommend follow-up to resolution. 2. Interval decrease in the size of the small to moderate-sized patchy consolidations in the right lower lobe. Recommend follow-up to resolution. 3. Stable 4 mm pulmonary nodule in the right upper lobe. A follow chest CT in 6 months is recommended. 4. The liver surface has a micronodular appearance suggestive of cirrhosis. Prior surgical changes noted in the upper abdomen similar to the prior study. Spleen is enlarged. Moderate amount of ascites in the visualized upper abdomen. There are a few stable lymph nodes in the visualized upper abdomen. 5. Nonspecific thickening of the ambrosio of the distal esophagus and about the GE junction. Reviewed, dictated and finalized at location Q. IMPRESSION: 1. Interval improvement in the reticulonodular and groundglass opacities in the right upper lobe, however, small reticulonodular and groundglass opacities rem ain. Recommend follow-up to resolution. 2. Interval decrease in the size of the small to moderate-sized patchy consolid ations in the right lower lobe. Recommend follow-up to resolution. 3. Stable 4 mm pulmonary nodule in the right upper lobe. A follow chest CT in 6 months is recommended. 4. The liver surface has a micronodular appearance suggestive of cirrhosis. Francia or surgical changes noted in the upper abdomen similar to the prior study. Sple en is enlarged. Moderate amount of ascites in the visualized upper abdomen. The re are a few stable lymph nodes in the visualized upper abdomen. 5. Nonspecific thickening of the ambrosio of the distal esophagus and about the GE junction.
--- OUTSIDE RECORDS SUMMARY | 2025-03-04 15:15 | XMS_ITS | Encounter Summary ---
Author Organization [facility] Address [facility] [place] [address] Care Team Providers Care Meat And Seafood Manager Name Role Phone Rena Asher MD Primary Care Provider Bharath Alexander MD Unavailable Unavailab le Encounter Details Date Type Department Care Team (Late st Contact Info) Description 06/29/2017 Abstract [facility] [address] [place] [phone] Bharath Alexander MD Social History Tobacco Use [...] on filedocumented in this encounter Care Teams Meat And Seafood Manager Relationship Specialty Start Date End Date Rena Asher MD [address] [place] [address] PCP - General INTERNAL MEDICINE 06/22/17 Bharath Alexander MD [address] [place] [address] CARDIOVASCULAR DISEASE 06/22/17 documented as of this encounter
--- OUTSIDE RECORDS SUMMARY | 2025-03-04 15:15 | XMS_ITS | Clinical Summary ---
Author Organization [facility] Address [address] [place] [address] Care Team Providers Care Dredge Deckhand Name Role Phone Rena Asher MD Primary Care Provider [phone] Bharath Alexander MD Unavailable Unavailab le Allergies [...] this topic Meningococcal Vaccine Aged Out No mea puma eligible based on patient's age to complete this topic RSV Immunizations Under 20 Months Aged Out No longer eligible based on patient's age to complete this topic Insurance [facility] MEDICARE Care Teams Dredge Deckhand Relationship Specialty Start Date End Date Rena Asher MD [address] [place] [address] PCP - General INTERNAL MEDICINE 06/22/17 Bharath Alexander MD [address] [place] [address] CARDIOVASCULAR DISEASE 06/22/17
[2025-03-04 15:42] LABS: Hematocrit 38.4 % (35.0-42.0); Hemoglobin 12.2 g/dL (11.7-13.8); Immature Platelet Fraction Pct 2.2 % (1.0-7.0); Mean Corpuscular HGB Conc 31.8 g/dL (32-36); Mean Corpuscular Hemoglobin 31.8 pg (27.0-31.0); Mean Corpuscular Volume 100.0 fL (78.0-102.0); Platelet Count Result 94 K/mm3 (150-420); Red Blood Count 3.84 M/mm3 (4.20-5.40); White Blood Count 3.9 K/mm3 (4.8-10.8)
[2025-03-04 16:47] LABS: Anion Gap 3 mmol/L (4-12); Blood Urea Nitrogen 13 mg/dL (7-17); CRP < 0.5 mg/dL (<1.0); Calcium 9.6 mg/dL (8.4-10.2); Carbon Dioxide 32 mmol/L (22-30); Chloride 105 mmol/L (98-107); Estimated Glomerular Filt Rate > 60; Glucose 131 mg/dL (65-110); Osmolality Calculated 292 mOsm/kg (285-295); Potassium 5.1 mmol/L (3.4-5.0); Sodium 140 mmol/L (137-145)
[2025-03-04 16:52] LABS: NT Pro B Type Natriuretic Pept 867 pg/mL (19.9-100)
== END 2025-03-04 15:00 | disposition home or self-care (01) ==
LOC: CHSIMG 15:05
PROVIDERS: PCP Internal Medicine; Visit Provider Internal Medicine Critical Care Medicine
DX: R93.89 Abnormal findings on diagnostic imaging of other specified body structures (principal); I50.9 Heart failure, unspecified; J18.9 Pneumonia, unspecified organism; M35.3 Polymyalgia rheumatica
CPT/HCPCS: 36415; 71250; 80048; 83880; 85027; 85055; 85652; 86140

== ENCOUNTER 2025-03-31 15:15 | Outpatient (CLI) | payer MEDICARE, SELFPAY ==
--- OUTSIDE RECORDS SUMMARY | 2025-01-15 08:00 | XMS_ITS | Continuity of Care Document ---
Author Organization [facility] [place] Address [address] [place] [address] Phone Care Team Providers Care Electrotherapist Name Role Phone Ze Renteria MD, FACS [...] Providers Copied on Encounter Office/outpa tient Visit, [facility] [place], [facility] [employer] [address], [place], [place], [address], tel:[phone] [place] Professional cornea check (chief complaint) Recurrent erosion of cornea, bilateralAnte rior basement membrane dystrophy (ABMD) of both eyes Myra Kunz. [facility] [employer], [address], [place], [place], [address], [place]. tel:[phone] Referring Provider: Ayan Richey OD, [address] [place] [address], [address]. tel:[phone] Office/outpa tient Visit, [facility], [address], [place], [place], [address], tel:[phone] SEC [place] Cornea check (chief complaint) Anterior basement membrane dystrophy of both eyesDry eye syndrome of bilateral lacrimal glands 5 Myra Kunz. [address], [address], [place], [place], [address], [place]. tel:[phone] Referring Provider: Ayan Richey OD, [address] [place] [address], [address]. tel:[phone] Office/outpa tient Visit, [facility] [place], [facility] [employer] [address], [place], [place], [address], tel:[phone] SEC [place] cornea eval (chief complaint) Recurrent erosion of cornea, bilateralSeco ndary corneal edema, left eyeInj conjunctiva and corneal abrasion w/o fb, left eye, initAnterior basement membrane dystrophy of both eyes 4 Myra Ze[address] [place], [place] [address]crest [employer] [facility], [address], [place], [place], [address], . tel:[phone] Referring Provider: Ayan Richey OD, [address] [place] [address], [place], [address]. tel:[phone] Office/outpa tient Visit, [facility], [address] [place] [address] [address], [place], [place], [address], tel:[phone] SEC [place] Professional Follow up visit (chief complaint) Corneal ulcer of left eye Oct0 3 Renee OD Miri. [address] [place] [address] [employer] [facility], [address], [place], [place], [address], [place]. tel:[phone] Referring Provider: Ayan Richey OD, [address] [place] [address], [place], [address]. tel:[phone] Office/outpa tient Visit, [facility], [address] [place] [address] [address], [place], [place], [address], [place] tel:[phone] SEC [place] Professional Cornea (chief complaint) Corneal ulcer of left eye 3 [place] Ze. [address] [place], [place] [address]crest [employer] [facility], [address], [place], [place], [address], [place]. tel:[phone] Referring Provider: Ayan Richey OD, [address] [place] [address], [place], [address]. tel:[phone] Office/outpa tient Visit, [facility], [address] [place] [address] [address], [place], [place], [address], [place] tel:[phone] SEC [place] Professional Corneal Ulcer (chief complaint) Corneal ulcer of left eye [address] [place] [address] [employer], [address], [place], [address], . tel:[phone] Referring Provider: Ayan Richey OD, [address] [place] [address], [place], [address]. tel:[phone] Office/outpa tient Visit, [facility], [address] [place], [place] [address]te [address], [place], [address], tel:[phone] SEC [place] Corneal Ulcer (chief complaint) Corneal ulcer of left eye 3 Myra Kunz. [address] [place] [address] [employer], [address], [place], [address], . tel:[phone] Referring Provider: Ayan Richey OD, [address] [place] [address], [place], [address]. tel:[phone] Office/outpa tient Visit, [facility], [address] [place], [place] [address]te [address], [place], [address], tel:[phone] SEC [place] Cornea evaluation (chief complaint) Corneal ulcer of left eye 3 Myra Kunz. [address] [place] [address] [employer] [facility], [address], [place], [address], . tel:[phone] Referring Provider: Ayan Richey OD, [address] [place] [address], [address]. tel:[phone] Family History Family Member Type Diagnosis Age At Onset Problem Family history of Diabetes sanam figueroa Payers Payer name Insurance type Covered constitution party ID Authoriza tion(s) Medicare [facility] [id number] [facility] [id number] Social History Type Description Quantity Date Captured [...] was able to get her drop from [employer] just before they closed on Monday. Pt [...]
[2025-03-31 15:32] LABS: Hematocrit 37.2 % (35.0-42.0); Hemoglobin 12.0 g/dL (11.7-13.8); Immature Platelet Fraction Pct 2.7 % (1.0-7.0); Mean Corpuscular HGB Conc 32.3 g/dL (32-36); Mean Corpuscular Hemoglobin 31.9 pg (27.0-31.0); Mean Corpuscular Volume 98.9 fL (78.0-102.0); Platelet Count Result 80 K/mm3 (150-420); Red Blood Count 3.76 M/mm3 (4.20-5.40); White Blood Count 4.3 K/mm3 (4.8-10.8)
[2025-03-31 16:07] LABS: Alanine Aminotransferase 20 U/L (6-35); Albumin Level 3.8 g/dL (3.5-5.1); Alkaline Phosphatase 86 U/L (38-126); Anion Gap 6 mmol/L (4-12); Aspartate Amino Transferase 45 U/L (14-36); Bilirubin,Total 1.1 mg/dL (0.2-1.3); Blood Urea Nitrogen 17 mg/dL (7-17); CRP < 0.5 mg/dL (<1.0); Calcium 9.4 mg/dL (8.4-10.2); Carbon Dioxide 32 mmol/L (22-30); Chloride 102 mmol/L (98-107); Estimated Glomerular Filt Rate > 60; Glucose 123 mg/dL (65-110); Osmolality Calculated 292 mOsm/kg (285-295); Potassium 4.1 mmol/L (3.4-5.0); Sodium 140 mmol/L (137-145); Total Protein 7.9 g/dL (6.3-8.2)
--- OUTSIDE RECORDS SUMMARY | 2025-03-31 16:08 | XMS_ITS | Encounter Summary ---
Author Organization [facility] Address Formerly [facility] [place] [address] Care Team Providers Care Latrine Cleaner Name Role Phone Rena Asher MD Primary Care Provider [phone] Bharath Alexander MD Unavailable Unavailab le Encounter Details Date Type Department Care Team (Late st Contact Info) Description 06/29/2017 Abstract [facility] [address] [place] [phone] Bharath Alexander MD Social History Tobacco Use [...] on filedocumented in this encounter Care Teams Latrine Cleaner Relationship Specialty Start Date End Date Rena Asher MD [address] [place] [address] PCP - General INTERNAL MEDICINE 06/22/17 Bharath Alexander MD [address] [place] [address] CARDIOVASCULAR DISEASE 06/22/17 documented as of this encounter
--- OUTSIDE RECORDS SUMMARY | 2025-03-31 16:08 | XMS_ITS | Clinical Summary ---
Author Organization [facility] Address [address] [place] [address] Care Team Providers Care Cash Applications Analyst Name Role Phone Rena Asher MD Primary Care Provider [phone] Bharath Alexander MD Unavailable Unavailab le Allergies [...] series) 01/07/2015 COVID-19 Vaccine (2023-2 5 season) 2025 Meningococcal B Vaccine Aged Out No l onger eligible based on patient's age to complete this topic Meningococcal Vaccine Aged Out No mae puma eligible based on patient's age to complete this topic RSV Immunizations Under 20 Months Aged Out No longer eligible based on patient's age to complete this topic Insurance [facility] MEDICARE Care Teams Cash Applications Analyst Relationship Specialty Start Date End Date Rena Asher MD [address] [place] [address] PCP - General INTERNAL MEDICINE 06/22/17 Bharath Alexander MD [address] [place] [address] CARDIOVASCULAR DISEASE 06/22/17
[2025-03-31 16:14] LABS: NT Pro B Type Natriuretic Pept 1030 pg/mL (19.9-100)
== END 2025-03-31 15:16 | disposition home or self-care (01) ==
LOC: CHSLAB 15:18
PROVIDERS: PCP Internal Medicine; Visit Provider Internal Medicine
DX: R60.0 Localized edema (principal); D61.818 Other pancytopenia; M35.3 Polymyalgia rheumatica; I50.9 Heart failure, unspecified
CPT/HCPCS: 36415; 80053; 83880; 85027; 85055; 85652; 86140

== ENCOUNTER 2025-05-05 15:23 | Outpatient (CLI) | payer MEDICARE, SELFPAY ==
--- OUTSIDE RECORDS SUMMARY | 2025-01-15 07:00 | XMS_ITS | Continuity of Care Document ---
Author Organization [facility] Address [address] [place] [address] Phone Care Team Providers Care Jig Maker Name Role Phone Ze Renteria MD, FACS Unavailable Unavailab le Allergies, Adverse Reactions, Alerts Substance Reaction Status Criticality No Known Allergies Active No Inform ation Medications Medication Instructions Dosage Effective Dates (start - stop) Status Comments ketorolac 0.5 % eye drops instill 1 drop in the operated eye 3 times a day as directed - Active Calcium-600 600 mg (as calcium carbonate 1,500 mg) tablet take 1 tablet by oral route 2 times every day 1 tablet - Active Allergy Medication 25 mg capsule take tablet by oral route every day tablet - Active cephalexin 500 mg capsule take [...] - No Longer Active Procedures Procedure Date Office/outpatient Visit, Est No Charge Refraction Office/outpatient Visit, Est Office/outpatient Visit, Est Office/outpatient Visit, Est Office/outpatient Visit, Est Office/outpatient Visit, Est Office/outpatient Visit, Est Office/outpatient Visit, New Advance Directives Directive Yes / No Effective Date File Name No Information Encounters Encounter Description Practice Location Reason(s) For Visit Diagnoses Date Provider Providers Copied on Encounter Office/outpa tient Visit, [facility] [place], [facility] [address], [place], [place], [address], tel:[phone] SEC [place] Professional cornea check (chief complaint) Recurrent erosion of cornea, bilateralAnte rior basement membrane dystrophy (ABMD) of both eyes Myra uKnz. [facility] [employer], [address], [place], [place], [address], [place]. tel:[phone] Referring Provider: Ayan Richey OD, [address] [place] [address], [address]. tel:[phone] Office/outpa tient Visit, [facility], [address], [place], [place], [address], tel:[phone] SEC [place] Cornea check (chief complaint) Anterior basement membrane dystrophy of both eyesDry eye syndrome of bilateral lacrimal glands 5 Myra Kunz. [address], [address], [place], [place], [address], [place]. tel:[phone] Referring Provider: Ayan Richey OD, [address] [place] [address], [address]. tel:[phone] Office/outpa tient Visit, [facility], [facility] [address], [place], [place], [address], tel:[phone] SEC [place] cornea eval (chief complaint) Recurrent erosion of cornea, bilateralSeco ndary corneal edema, left eyeInj conjunctiva and corneal abrasion w/o fb, left eye, initAnterior basement membrane dystrophy of both eyes 4 Myra Ze. [address] [place], [place] [address]crest [employer] [facility], [address], [place], [place], [address], . tel:[phone] Referring Provider: Ayan Richey OD, [address] [place] [address], [place], [address]. tel:[phone] Office/outpa tient Visit, [facility] [place], [address] [place] [address] [address], [place], [place], [address], tel:[phone] SEC [place] Professional Follow up visit (chief complaint) Corneal ulcer of left eye Oct0 3 Renee OD Miri. [address] [place] [address] [employer] [facility] [place], [address], [place], [place], [address], [place]. tel:[phone] Referring Provider: Ayan Richey OD, [address] [place] [address], [place], [address]. tel:[phone] Office/outpa tient Visit, [facility] [place], [address] [place] [address] [address], [place], [place], [address], [place] tel:[phone] SEC [place] Professional Cornea (chief complaint) Corneal ulcer of left eye 3 [place] Ze. [address] [place], [place] [address]crest [employer] [facility] [place], [address], [place], [place], [address], [place]. tel:[phone] Referring Provider: Ayan Richey OD, [address] [place] [address], [place], [address]. tel:[phone] Office/outpa tient Visit, [facility], [address] [place] [address] [address], [place], [place], [address], [place] tel:[phone] SEC [place] Professional Corneal Ulcer (chief complaint) Corneal ulcer of left eye [address] [place] [address] [employer], [address], [place], [address], . tel:[phone] Referring Provider: Ayan Richey OD, [address] [place] [address], [place], [address]. tel:[phone] Office/outpa tient Visit, [facility], [address] [place], [place] [address], [place], [address], tel:[phone] SEC [place] Corneal Ulcer (chief complaint) Corneal ulcer of left eye 3 Myra Kunz. [address] [place] [address] [employer], [address], [place], [address], . tel:[phone] Referring Provider: Ayan Richey OD, [address] [place] [address], [place], [address]. tel:[phone] Office/outpa tient Visit, [facility], [address] [place], [place] [address], [place], [address], tel:[phone] SEC [place] Cornea evaluation (chief complaint) Corneal ulcer of left eye 3 Myra Kunz. [address] [place] [address] [employer] [facility], [place], [address], [place], [address], . tel:[phone] Referring Provider: Ayan Richey OD, [address] [place] [address], [address]. tel:[phone] Family History Family Member Type Diagnosis Age At Onset Problem Family history of Diabetes sanam figueroa Payers Payer name Insurance type Covered libertarian ID Authoriza tion(s) Medicare [facility] [id number] [facility] [id number] Social History Type Description Quantity Date Captured Comments Alcohol Use Details No Caffeine Use Details Tobacco Use Status Ex-cigarette smoker 025 Smoking Status Former smoker Smoking Tobacco Use Details Cigarette: Age Started: 18, Age Stopped: 25, Years Used 7 Cigarette: No Details Available Sex Female Chief Complaint And Reason For Visit From encounter dated '01/15/2025 13:00'. cornea check (chief complaint). Description: The 85 year old patient presents for evaluation of cornea check in the right eye and left eye. H/o ABMD w/ scarring OD and roughness/erosion OS and PCIOL OU. Pt reports blurred vision in both eyes. Pt has a discomfort in her eyes, pt has not been using the Ketorolac. Glasses are a few years old. Denies flashes/floaters. Reason For Referral Reason For Referral No [...] Date Complaint History Of Prese nt Illness cornea check The 85 year old patient presents for evaluation of cornea check in the right eye and left eye. H/o ABMD w/ scarring OD and roughness/erosion OS and PCIOL OU. Pt reports blurred vision in both eyes. Pt has a discomfort in her eyes, pt has not been using the Ketorolac. Glasses are a few years old. Denies flashes/floaters. Cornea check The 84 year old patient [...] was able to get her drop from [facility] just before they closed on Monday. Pt [...] Status Date Functional Assessmen t No Information Instructions Date Instruction Additional Infor elroy Impression/Plan Impression/Plan Impression/Plan Impression/Plan Impression/Plan Impression/Plan Impression/Plan Assessments Type Assessment Date assessment Recurrent erosion of cornea, era ateral assessment Anterior basement membrane dystr ophy (ABMD) of both eyes Patient Care Teams Name Effective Dates (start - stop) Status Members No Information
--- OUTSIDE RECORDS SUMMARY | 2025-05-05 15:42 | XMS_ITS | Clinical Summary ---
Author Organization [facility] Address [address] [place] [address] Care Team Providers Care Director Of Purchasing Name Role Phone Rena Asher MD Primary Care Provider [phone] Bharath Alexander MD Unavailable Unavailab le Allergies [...] - 1-dose 75+ series) 01/07/2015 COVID-19 Vaccine (2024-2 6 season) 2025 Influenza Adult (#1) 2025 Hepatitis A Vaccines Aged Out No long er eligible based on patient's age to complete this topic Meningococcal B Vaccine Aged Out No l onger eligible based on patient's age to complete this topic Meningococcal Vaccine Aged Out No mae puma eligible based on patient's age to complete this topic RSV Immunizations Under 20 Months Aged Out No longer eligible based on patient's age to complete this topic Insurance [employer]UE [employer]UE [facility] MEDICARE Care Teams Director Of Purchasing Relationship Specialty Start Date End Date Rena Asher MD [address] [place] [phone] PCP - General INTERNAL MEDICINE 06/22/17 Bharath Alexander MD [address] [place] [address] CARDIOVASCULAR DISEASE 06/22/17
--- OUTSIDE RECORDS SUMMARY | 2025-05-05 15:42 | XMS_ITS | Encounter Summary ---
Author Organization [facility] Address [facility] [place] [address] Care Team Providers Care Stone Layout Marker Name Role Phone Rena Asher MD Primary Care Provider [phone] Bharath Alexander MD Unavailable Unavailab le Encounter Details Date Type Department Care Team (Late st Contact Info) Description 06/29/2017 Abstract [facility] AT [facility] [address] [place] [phone] Bharath Alexander MD Social History Tobacco Use [...] on filedocumented in this encounter Care Teams Stone Layout Marker Relationship Specialty Start Date End Date Rena Ashre MD [address] [place] [address] PCP - General INTERNAL MEDICINE 06/22/17 Bharath Alexander MD [address] [place] [address] CARDIOVASCULAR DISEASE 06/22/17 documented as of this encounter
[2025-05-05 15:48] LABS: Hematocrit 34.4 % (35.0-42.0); Hemoglobin 11.0 g/dL (11.7-13.8); Immature Platelet Fraction Pct 2.9 % (1.0-7.0); Mean Corpuscular HGB Conc 32.0 g/dL (32-36); Mean Corpuscular Hemoglobin 31.6 pg (27.0-31.0); Mean Corpuscular Volume 98.9 fL (78.0-102.0); Platelet Count Result 74 K/mm3 (150-420); Red Blood Count 3.48 M/mm3 (4.20-5.40); White Blood Count 5.2 K/mm3 (4.8-10.8)
[2025-05-05 16:19] LABS: Alanine Aminotransferase 19 U/L (6-35); Albumin Level 3.9 g/dL (3.5-5.1); Alkaline Phosphatase 93 U/L (38-126); Anion Gap 5 mmol/L (4-12); Aspartate Amino Transferase 44 U/L (14-36); Bilirubin,Total 2.3 mg/dL (0.2-1.3); Blood Urea Nitrogen 20 mg/dL (7-17); CRP < 0.5 mg/dL (<1.0); Calcium 9.2 mg/dL (8.4-10.2); Carbon Dioxide 32 mmol/L (22-30); Chloride 102 mmol/L (98-107); Estimated Glomerular Filt Rate > 60; Glucose 124 mg/dL (65-110); Osmolality Calculated 291 mOsm/kg (285-295); Potassium 4.6 mmol/L (3.4-5.0); Sodium 139 mmol/L (137-145); Total Protein 7.1 g/dL (6.3-8.2)
== END 2025-05-05 15:24 | disposition home or self-care (01) ==
LOC: CHSLAB 15:26
PROVIDERS: PCP Internal Medicine; Visit Provider Internal Medicine
DX: D61.818 Other pancytopenia (principal); M35.3 Polymyalgia rheumatica
CPT/HCPCS: 36415; 80053; 85027; 85055; 85652; 86140

== ENCOUNTER 2025-05-12 16:08 | Outpatient (CLI) | payer MEDICARE, SELFPAY ==
--- OUTSIDE RECORDS SUMMARY | 2025-01-15 07:00 | XMS_ITS | Continuity of Care Document ---
Author Organization [facility] Address [address] [place] [address] Phone Care Team Providers Care Windows Admin Name Role Phone Ze Renteria MD, FACS [...] Providers Copied on Encounter Office/outpa tient Visit, [facility], [facility] [employer] [address], [place], [place], [address], tel:[phone] SEC [place] Professional cornea check (chief complaint) Recurrent erosion of cornea, bilateralAnte rior basement membrane dystrophy (ABMD) of both eyes Myra Kunz. [facility] [employer], [address], [place], [place], [address], [place]. tel:[phone] Referring Provider: Ayan Richey OD, [address] [place] [address], [address]. tel:[phone] Office/outpa tient Visit, [facility], [address], [place], [place], [address], tel:[phone] SEC [place] Cornea check (chief complaint) Anterior basement membrane dystrophy of both eyesDry eye syndrome of bilateral lacrimal glands 5 Myra Kunz. [address], [address], [place], [place], [address], [place]. tel:[phone] Referring Provider: Ayan Richey OD, [address] [place] [address], [address]. tel:[phone] Office/outpa tient Visit, [facility], [facility] [employer] [address], [place], [place], [address], tel:[phone] SEC [place] cornea eval (chief complaint) Recurrent erosion of cornea, bilateralSeco ndary corneal edema, left eyeInj conjunctiva and corneal abrasion w/o fb, left eye, initAnterior basement membrane dystrophy of both eyes 4 Myra Ze. [address] [place], [place] [address]crest [employer] [facility], [address], [place], [place], [address], . tel:[phone] Referring Provider: Ayan Richey OD, [address] [place] [address], [place], [address]. tel:[phone] Office/outpa tient Visit, [facility], [address] [place] [address] [address], [place], [place], [address], tel:[phone] SEC [place] Professional Follow up visit (chief complaint) Corneal ulcer of left eye Oct0 3 Renee OD Miri. [address] [place] [address] [employer] [facility], [address], [place], [place], [address], [place]. tel:[phone] Referring Provider: Ayan Richey OD, [address] [place] [address], [place], [address]. tel:[phone] Office/outpa tient Visit, [facility], [address] [place] [address] [address], [place], [place], [address], [place] tel:[phone] SEC [place] Professional Cornea (chief complaint) Corneal ulcer of left eye 3 Myra Ze. [address] [place], [place] [address]cre[address] [employer] [facility], [address], [place], [place], [address], [place]. tel:[phone] Referring Provider: Ayan Richey OD, [address] [place] [address], [place], [address]. tel:[phone] Office/outpa tient Visit, [facility], [address] [place] [address] [address], [place], [place], [address], [place] tel:[phone] SEC [place] Professional Corneal Ulcer (chief complaint) Corneal ulcer of left eye 3 [place] Ze[address] [place] [address] [employer], [address], [place], [address], . tel:[phone] Referring Provider: Ayan Richey OD, [address] [place] [address], [place], [address]. tel:[phone] Office/outpa tient Visit, [facility], [address] [place], [place] [address], [place], [address], tel:[phone] SEC [place] Corneal Ulcer (chief complaint) Corneal ulcer of left eye 3 Myra Kunz. [address] [place] [address] [employer], [address], [place], [address], . tel:[phone] Referring Provider: Ayan Richey OD, [address] [place] [address], [place], [address]. tel:[phone] Office/outpa tient Visit, [facility], [address] [place], [place] [address], [place], [address], tel:[phone] SEC [place] Cornea evaluation (chief complaint) Corneal ulcer of left eye 3 Myra Kunz. [address] [place] [address] [employer] [facility], [address], [place], [address], . tel:[phone] Referring Provider: Ayan Richey OD, [address] [place] [address], [address]. tel:[phone] Family History Family Member Type Diagnosis Age At Onset Problem Family history of Diabetes sanam figueroa Payers Payer name Insurance type Covered constitution party ID Authoriza tion(s) Medicare [facility] [id number] [facility] [id number] Social History Type Description Quantity Date Captured [...] was able to get her drop from [facility] just before they closed on Monday. Pt [...]
--- NOTE | ~2025-05-12 | XR_ITS ---
EXAMINATION: XR chest 2V DATE: 05/12/2025 16:31 INDICATION: Chronic cough TECHNIQUE: Frontal and lateral views of the chest were obtained. COMPARISON: February 13, 2025 chest x-ray and sausage tier image from chest CT dated March 04, 2025 FINDINGS: No focal acute process. Overall stable chest x-ray. Numerous surgical clips again noted in the upper abdomen. IMPRESSION: 1. No focal consolidation or acute process identified. 2. See also report for chest CT performed March 2025. Reviewed, dictated and finalized at location A. AGE SUPERVISOR
--- OUTSIDE RECORDS SUMMARY | 2025-05-12 16:11 | XMS_ITS | Clinical Summary ---
Author Organization [facility] Address [address] [place] [address] Care Team Providers Care Patient Care Specialist Name Role Phone Rena Asher MD Primary Care Provider [phone] Bharath Alexander MD Unavailable Unavailab le Allergies [...] age to complete this topic Insurance BLUE [place] BLUE [facility] MEDICARE Care Teams Patient Care Specialist Relationship Specialty Start Date End Date Rena Asher MD [address] [place] [phone] PCP - General INTERNAL MEDICINE 06/22/17 Bharath Alexander MD [address] [place] [address] CARDIOVASCULAR DISEASE 06/22/17
--- OUTSIDE RECORDS SUMMARY | 2025-05-12 16:11 | XMS_ITS | Encounter Summary ---
Author Organization [facility] Address Counts include 234 beds at the [facility] [place] [address] Care Team Providers Care Drier Operator Name Role Phone Rena Asher MD Primary Care Provider [phone] Bharath Alexander MD Unavailable Unavailab le Encounter Details Date Type Department Care Team (Late st Contact Info) Description 06/29/2017 Abstract [facility] AT [facility] [address] [place] [phone] Bharath Alexander MD Social History Tobacco Use [...] on filedocumented in this encounter Care Teams Drier Operator Relationship Specialty Start Date End Date Rena Asher MD [address] [place] [address] PCP - General INTERNAL MEDICINE 06/22/17 Bharath Alexander MD [address] [place] [address] CARDIOVASCULAR DISEASE 06/22/17 documented as of this encounter
== END 2025-05-12 16:09 | disposition home or self-care (01) ==
LOC: CHSIMG 16:10
PROVIDERS: PCP Internal Medicine; Visit Provider Internal Medicine
DX: R05.3 Chronic cough (principal)
CPT/HCPCS: 71046

== ENCOUNTER 2025-06-09 16:21 | Outpatient (CLI) | payer MEDICARE, SELFPAY ==
[2025-06-09 17:23] LABS: Hematocrit 35.1 % (35.0-42.0); Hemoglobin 11.4 g/dL (11.7-13.8); Immature Platelet Fraction Pct 2.8 % (1.0-7.0); Mean Corpuscular HGB Conc 32.5 g/dL (32-36); Mean Corpuscular Hemoglobin 31.8 pg (27.0-31.0); Mean Corpuscular Volume 98.0 fL (78.0-102.0); Platelet Count Result 84 K/mm3 (150-420); Red Blood Count 3.58 M/mm3 (4.20-5.40); White Blood Count 4.6 K/mm3 (4.8-10.8)
[2025-06-09 17:42] LABS: Alanine Aminotransferase 20 U/L (6-35); Albumin Level 3.9 g/dL (3.5-5.1); Alkaline Phosphatase 101 U/L (38-126); Anion Gap 7 mmol/L (4-12); Aspartate Amino Transferase 44 U/L (14-36); Bilirubin,Total 0.9 mg/dL (0.2-1.3); Blood Urea Nitrogen 22 mg/dL (7-17); CRP < 0.5 mg/dL (<1.0); Calcium 9.3 mg/dL (8.4-10.2); Carbon Dioxide 31 mmol/L (22-30); Chloride 103 mmol/L (98-107); Estimated Glomerular Filt Rate > 60; Glucose 151 mg/dL (65-110); Osmolality Calculated 298 mOsm/kg (285-295); Potassium 4.2 mmol/L (3.4-5.0); Sodium 141 mmol/L (137-145); Total Protein 7.3 g/dL (6.3-8.2)
--- OUTSIDE RECORDS SUMMARY | 2025-06-09 19:29 | XMS_ITS | Encounter Summary ---
Author Organization [facility] Address [facility] [place] [address] Care Team Providers Care Button Sewer Hand Name Role Phone Rena Asher MD Primary Care Provider Bharath Alexander MD Unavailable Unavailab le Encounter Details Date Type Department Care Team (Late st Contact Info) Description 06/29/2017 Abstract [facility] AT [facility] [address] [place] [phone] Bharath Alexander MD Social History Tobacco Use [...] on filedocumented in this encounter Care Teams Button Sewer Hand Relationship Specialty Start Date End Date Rena Asher MD [address] [place] [address] PCP - General INTERNAL MEDICINE 06/22/17 Bharath Alexander MD [address] [place] [address] CARDIOVASCULAR DISEASE 06/22/17 documented as of this encounter
--- OUTSIDE RECORDS SUMMARY | 2025-06-09 19:29 | XMS_ITS | Clinical Summary ---
Author Organization [facility] Address [address] [place] [address] Care Team Providers Care Registered Nurse Renal Name Role Phone Rena Asher MD Primary Care Provider [phone] Bharath Alexander MD Unavailable Unavailab le Allergies [...] age to complete this topic Insurance [employer]UE [employer] [facility] MEDICARE Care Teams Registered Nurse Renal Relationship Specialty Start Date End Date Rena Asher MD [address] [place] [phone] PCP - General INTERNAL MEDICINE 06/22/17 Bharath Alexander MD [address] [place] [address] CARDIOVASCULAR DISEASE 06/22/17
== END 2025-06-09 16:22 | disposition home or self-care (01) ==
PROVIDERS: PCP Internal Medicine; Visit Provider Internal Medicine
DX: R60.0 Localized edema (principal); M35.3 Polymyalgia rheumatica
CPT/HCPCS: 36415; 80053; 85027; 85055; 85652; 86140

== ENCOUNTER 2025-06-16 14:00 | Outpatient (RCR) | payer MEDICARE, SELFPAY ==
--- NOTE | 2025-03-25 18:32 | BUSTOPEVAL1 ---
Assessment and note entered by Sheridan Jara, LOADING DOCK HELPER Evaluation Information Assessment Status Evaluation Diagnosis T17.900A Unspecified foreign body in respiratory tract, causing asphyxia ICD-10 Condition Codes (ST) Dysphagia, oropharyngeal phase R13.12 Subjective Information Patient was referred for a skilled ST evaluation due to a recent modified barium swallow study on indicating penetration and aspiration with thin fluids. Patient was diagnosed with pneumonia without normal pneumonia symptoms resulting in MBS recommendation. MBS indicated decreased laryngeal elevation, decreased lingual pressure, reduced epiglottic inversion resulting in laryngeal penetration and aspiration with thin trials via cup. Attempted chin tuck posture with continued laryngeal penetration noted. Recommendation was then given to target skilled ST treatment to target diet modification/training and education regarding completion of swallowing exercises to improve airway protection and decrease risk for aspiration and risk for recurrent pneumonia. Reported Pain Level Pain Score 0: Self Report Assessment ST Clinical Summary Patient was referred for a skilled ST evaluation due to a recent modified barium swallow study completed on 02-19-25 indicating laryngeal penetration and aspiration with thin fluids. Patient has had difficulty swallowing over the past 3 months and also recently had pneumonia. Modified barium swallow study results indicated; Reduced epiglottic inversion, decreased lingual pressure, and reduced epiglottic inversion resulting in pharyngeal phase deficits; laryngeal penetration and aspiration with thin trials entering below area of vocal cords and no effort was made to clear it. Attempted use of chin tuck with continued penetration noted. Recommendation was given for: regular diet, mildly thick fluids, exercises; fay, louis, laryngeal elevation , effortful swallow and chin tuck against resistance and skilled ST treatment to focus on diet modification/training. Patient is currently tolerating thickened fluids level 2 with some fluids but was unaware of recommendation to tolerate with all fluids at this time. Patient was seen with trials of thin fluid, level 2 fluids and solids (chips) during the evaluation. Decreased laryngeal elevation was noted upon palpation along with piecemeal deglutition with all fluid trials. Patient took very large sequential gulps of both thin fluids and level 2 fluids with no awareness regarding recommended compensatory techniques to improve airway protection. MASA was given with a score of 177 indicating mild dysphagia. However results of MBS and clinical observation currently indicate moderate dysphagia at this time and moderate risk for aspiration. Patient and daughter were educated throughout the session regarding gel thickener and where that can be purchased along with current diet recommendation for level 7 solids and level 2 fluids at this time. Handouts and review of all swallowing exercises were completed during the evaluation this date. Recommendation for skilled ST treatment to target dysphagia to improve airway protection and decrease risk for aspiration and recurrent pneumonia. Skilled ST 1x per week for 10 visits to target diet modification/training, compensatory techniques and swallowing exercises to reduce risk for aspiration. Plan of Care Interventions Treatment of Swallowing Dysfunction Treatment Frequency and 1x/week for 10 visits Duration These treatments will address the objective and functional deficits as defined above. The patient will be advanced safely and appropriately in order for the patient to progress towards his/her prior level of function. Additional exercises will be introduced and as well as a comprehensive home exercise program upon discharge, if needed, ?to ensure carryover of functional gains achieved in the clinic. This treatment plan has been reviewed and agreement upon by the patient.
--- NOTE | 2025-03-25 18:32 | OPREHPOC ---
Outpatient Therapy Plan of Care This is a Multidisciplinary Plan of Care that may contain components documented by all disciplines (PT, OT, and ST.) ST Problem 1 ST Problem #[address] Goal 1 Goal / Goal Update 1. Patient will participate in home programming to promote carryover/generalization of skills to home environment. Target Visit [address] Problem #[address] Goal 1 Goal / Goal Update 2. Patient will complete laryngeal elevation/ adduction exercises 10x with minimal cues (improve laryngeal vestibule closure, increase duration of the UES opening) to reduce (residue following the swallow, instances of penetration/aspiration) as viewed on repeat modified barium swallow study when appropriate. 3. Patient will complete 20+ effortful swallows with (consistency, meal, etc) to improve strength and coordination of the swallow decreasing residue and reducing instances of aspiration/penetration as viewed on repeat modified barium swallow study when appropriate 4. Patient will complete Mio maneuver 10x ( *if appropriate based on viewed effectiveness in previous MBS) with minimal cues to (increase duration of UES opening, improve airway closure, reducing residue following the swallow). 5. Patient will complete chin tuck against resistance (CTAR) 20x to improve hyolaryngeal excursion decreasing pharyngeal residue following the swallow as evidenced through repeat MBS when appropriate. 6. Patient will perform louis 10x to improve strength for swallowing function with minimal cues . 7. Patient will perform shaker exercises 30 reps for 1 second hold and/or 3 reps for 1 minute hold to improve epiglottic inversion. 8. Patient will tolerate least restrictive diet ( thin fluids, level 7 solids) with no overt s/s of aspiration through use of trained compensatory techniques with minimal cues. Target Visit 10
--- NOTE | 2025-04-07 10:04 | PCSTNOTE ---
Patient's daughter called & cancelled scheduled appointment this date due to patient being ill.
--- NOTE | 2025-06-02 13:58 | PCSTNOTE ---
Patient called & cancelled scheduled appointment this date due to inclement weather.
--- NOTE | 2025-06-09 14:32 | PCSTNOTE ---
Patient called & cancelled scheduled appointment this date due to transportation difficulties due to a family emergency.
--- NOTE | 2025-06-17 13:15 | BUSTOPDC ---
Assessment and note entered by Sheridan Jara, ALARM FIELD TECHNICIAN Evaluation Information Assessment Status Discharge Diagnosis T17.900A Unspecified foreign body in respiratory tract, causing asphyxia ICD-10 Condition Codes (ST) Dysphagia, oropharyngeal phase R13.12 Subjective Information Patient was referred for a skilled ST evaluation due to a recent modified barium swallow study on indicating penetration and aspiration with thin fluids. Patient was diagnosed with pneumonia without normal pneumonia symptoms resulting in MBS recommendation. MBS indicated decreased laryngeal elevation, decreased lingual pressure, reduced epiglottic inversion resulting in laryngeal penetration and aspiration with thin trials via cup. Attempted chin tuck posture with continued laryngeal penetration noted. Recommendation was then given to target skilled ST treatment to target diet modification/training and education regarding completion of swallowing exercises to improve airway protection and decrease risk for aspiration and risk for recurrent pneumonia. Patient has completed a total of [address] treatment sessions with continued improvements noted in swallowing function. Patient continues to complete recommended swallowing exercises daily along with currently tolerating very minimal thickened fluids (currently tolerating 16 ounces of fluid to 1 large single scoop of thickener which is half the recommended amount for level 2 fluids). Patient has been tolerating thin water for two months with no noted changes. She had a recent chest x-ray and it was clear along with a recent pulmonology visit with no problems found. Patient is very happy with overall progress and is ready for discharge from skilled ST at this time. Reported Pain Level Pain Score 5,5: Self Report Pain Score 0: Self Report Pain Score 0: Self Report Pain Score 0: Self Report Pain Score 8,8: Self Report Pain Score 0: Self Report Pain Score 0: Self Report Pain Score 0: Self Report Assessment ST Clinical Summary Patient was referred for a skilled ST evaluation due to a recent modified barium swallow study completed on 02-19-25 indicating laryngeal penetration and aspiration with thin fluids. Upon evaluation patient reported some difficulty with swallowing along with recent pneumonia. Modified barium swallow study results indicated; Reduced epiglottic inversion, decreased lingual pressure, and reduced epiglottic inversion resulting in pharyngeal phase deficits; laryngeal penetration and aspiration with thin trials entering below area of vocal cords and no effort was made to clear it. Attempted use of chin tuck with continued penetration noted. Recommendation was given for: regular diet, mildly thick fluids, exercises; fay, louis, laryngeal elevation , effortful swallow and chin tuck against resistance and skilled ST treatment to focus on diet modification/training. Patient has completed a total of [address] treatment sessions with continued completion of recommended swallowing exercises daily along with reported improvements in overall swallowing function. Patient reported that she feels she has made great improvements and is currently tolerating thin fluids with no overt signs or symptoms of aspiration. Discussion regarding continued use of compensatory techniques and performance of recommended swallowing exercises through handouts given. Patient is ready for discharge from skilled ST at this time. Plan of Care Interventions Treatment of Swallowing Dysfunction Treatment Frequency and Discharge at this time Duration
--- NOTE | 2025-06-17 13:15 | OPREHPOC ---
Outpatient Therapy Plan of Care This is a Multidisciplinary Plan of Care that may contain components documented by all disciplines (PT, OT, and ST.) ST Problem 1 ST Problem #[address] Goal 1 Goal / Goal Update 1. Patient will participate in home programming to promote carryover/generalization of skills to home environment. -Patient continues to complete recommended swallowing exercises and use of compensatory techniques at home with minimal to no cues. Target Visit [address] Problem 2 ST Problem #[address] Goal 1 Goal / Goal Update 2. Patient will complete laryngeal elevation/ adduction exercises 10x with minimal cues (improve laryngeal vestibule closure, increase duration of the UES opening) to reduce (residue following the swallow, instances of penetration/aspiration) as viewed on repeat modified barium swallow study when appropriate. 12-15-25: Goal met 12 reps with minimal cues. 3. Patient will complete 20+ effortful swallows with (consistency, meal, etc) to improve strength and coordination of the swallow decreasing residue and reducing instances of aspiration/penetration as viewed on repeat modified barium swallow study when appropriate 12-15-25: Discontinue goal. Performed 10 reps with minimal cues. 4. Patient will complete Mio maneuver 10x ( *if appropriate based on viewed effectiveness in previous MBS) with minimal cues to (increase duration of UES opening, improve airway closure, reducing residue following the swallow). 12-15-25: discontinue goal due to significant difficulty in performance. 5. Patient will complete chin tuck against resistance (CTAR) 20x to improve hyolaryngeal excursion decreasing pharyngeal residue following the swallow as evidenced through repeat MBS when appropriate. 12-15-25: Goal met with 10-12 reps for 2 sets with minimal cues. 6. Patient will perform louis 10x to improve strength for swallowing function with minimal cues . 12-15-25: Goal met with 10 reps and minimal cues. 7. Patient will perform shaker exercises 30 reps for 1 second hold and/or 3 reps for 1 minute hold to improve epiglottic inversion. 12-15-25: Discontinue due to difficulty in performance and pain after completion. 8. Patient will tolerate least restrictive diet ( thin fluids, level 7 solids) with no overt s/s of aspiration through use of trained compensatory techniques with minimal cues. 12-15-25: Goal met with minimal cues and 0-1x cough during and post deglutition during sessions. Target Visit 10 Progress Partially Met
== END 2025-06-23 23:59 | disposition home or self-care (01) ==
LOC: CHSST 14:00
PROVIDERS: PCP Internal Medicine; Visit Provider Internal Medicine Critical Care Medicine
DX: T17.900A Unspecified foreign body in respiratory tract, part unspecified causing asphyxiation, initial encounter (principal)
CPT/HCPCS: 36415; 71046; 80053; 85027; 85055; 85652; 86140; 92526; 92610